=== PATIENT | female | born 1955 | race Caucasian/White ===

== ENCOUNTER 2020-02-22 16:49 | Outpatient (REF) | payer OTHER, SELFPAY | END 2020-02-22 16:50 | disposition home or self-care (01) | LOC: HO.LNP 16:49 | PROVIDERS: Visit Provider Nurse Practitioner Family | DX: N34.2 Other urethritis (principal) | CPT/HCPCS: 87086; 87088; 87186 ==

== ENCOUNTER 2020-03-23 12:20 | Outpatient (REF) | payer OTHER, SELFPAY ==
[2020-03-23 15:33] LABS: Free T4 (Free Thyroxine) 1.15 ng/dL (0.71-1.85); Thyroid Stimulating Hormone 1.02 uIU/mL (0.32-4.0)
== END 2020-03-23 12:21 | disposition home or self-care (01) ==
LOC: HO.10HDL 12:20
PROVIDERS: Visit Provider Internal Medicine
DX: E03.9 Hypothyroidism, unspecified (principal)
CPT/HCPCS: 84439; 84443; 87086

== ENCOUNTER 2020-03-27 12:54 | Outpatient (REF) | payer OTHER, SELFPAY ==
--- NOTE | 2020-03-27 13:15 | US_ITS ---
EXAMINATION: US RETROPERITONEAL LIMITED (RENAL ONLY) CLINICAL INFORMATION: Dysuria. COMPARISON: Ultrasound abdomen complete dated 06/29/2008. TECHNIQUE: Real-time imaging of the kidneys. Technically difficult study secondary to bowel gas. FINDINGS: RIGHT KIDNEY: 11.8 x 4.5 x 5.1 cm (SAG x AP x TRV). The kidney is normal in size, contour, and echogenicity. Renal cortical thickness is normal. No calculi or focal parenchymal lesions. No hydronephrosis. LEFT KIDNEY: 12.4 x 4.6 x 4.5 cm (SAG x AP x TRV). The kidney is normal in size, contour, and echogenicity. Renal cortical thickness is normal. No calculi or focal parenchymal lesions. No hydronephrosis. US/US renal BI IMPRESSION: Normal renal ultrasound..
== END 2020-03-27 12:55 | disposition home or self-care (01) ==
LOC: HO.HMGCX 12:54
PROVIDERS: PCP Internal Medicine; Visit Provider Internal Medicine
DX: R30.0 Dysuria (principal)
CPT/HCPCS: 76775

== ENCOUNTER 2020-04-30 13:10 | Outpatient (REF) | payer OTHER, SELFPAY ==
[2020-04-30 14:18] LABS: Glucose Urine UA NEG (NEG); Leukocyte Esterase Urine 1+ (NEG); Nitrite Urine POS (NEG); Specific Gravity - Urine 1.015 (1.005-1.025); Urine Blood TRACE (NEG); Urine Ketones NEG (NEG); Urine Protein NEG (NEG-TRACE)
[2020-04-30 14:24] LABS: Appearance Urine HAZY; Color Urine YELLOW
[2020-04-30 15:07] LABS: Bacteria Urine TRACE /LPF; RBC Urine 0-2 /HPF (0)
== END 2020-04-30 13:11 | disposition home or self-care (01) ==
LOC: HO.HMGCLDS 13:10
PROVIDERS: PCP Internal Medicine; Visit Provider Internal Medicine
DX: R32 Unspecified urinary incontinence (principal)
CPT/HCPCS: 81001; 87086; 87088; 87186

== ENCOUNTER → 2020-05-15 10:58 | Outpatient (BNVA) | payer OTHER, SELFPAY | PROVIDERS: PCP Internal Medicine; Visit Provider Internal Medicine Cardiovascular Disease | DX: I25.10 Atherosclerotic heart disease of native coronary artery without angina pectoris (principal); I10 Essential (primary) hypertension; I31.3 Pericardial effusion (noninflammatory); Z79.899 Other long term (current) drug therapy | CPT/HCPCS: 93005; 99212 ==

== ENCOUNTER 2020-06-04 12:58 | Outpatient (REF) | payer OTHER, SELFPAY ==
[2020-06-07 11:53] LABS: HPV mRNA E6/E7 rflx Not Detected (Not Detected)
== END 2020-06-04 12:59 | disposition home or self-care (01) ==
LOC: HO.LAB 12:58
PROVIDERS: Visit Provider Obstetrics & Gynecology
DX: R30.0 Dysuria (principal); F41.8 Other specified anxiety disorders; E78.00 Pure hypercholesterolemia, unspecified; I10 Essential (primary) hypertension; E03.9 Hypothyroidism, unspecified; E11.65 Type 2 diabetes mellitus with hyperglycemia; Z91.02 Food additives allergy status; Z91.040 Latex allergy status; Z91.018 Allergy to other foods; Z12.4 Encounter for screening for malignant neoplasm of cervix; Z12.31 Encounter for screening mammogram for malignant neoplasm of breast
CPT/HCPCS: 36415; 87086; 87088; 87186; 87624; 88141; 88142

== ENCOUNTER 2020-06-12 12:13 | Outpatient (REF) | payer OTHER, SELFPAY ==
[2020-06-12 14:41] LABS: Glucose Urine UA 100 MG/DL (NEG); Leukocyte Esterase Urine 1+ (NEG); Nitrite Urine NEG (NEG); Urine Blood 2+ (NEG); Urine Ketones NEG (NEG); Urine Protein NEG (NEG-TRACE)
[2020-06-12 14:43] LABS: Appearance Urine HAZY; Color Urine YELLOW
[2020-06-12 14:59] LABS: Mucus Urine 1+ /LPF; Renal Epithelial Cells Urine 1+ /LPF; Squamous Epithelial Cell Urine 1+ /LPF; WBC Urine 30-49 /HPF (0-4)
== END 2020-06-12 12:14 | disposition home or self-care (01) ==
LOC: HO.HMGCLDS 12:13
PROVIDERS: PCP Internal Medicine; Visit Provider Internal Medicine
DX: Z78.0 Asymptomatic menopausal state (principal); F17.210 Nicotine dependence, cigarettes, uncomplicated
CPT/HCPCS: 81001; Q3014

== ENCOUNTER 2020-06-14 13:49 | Outpatient (REF) | payer OTHER, SELFPAY ==
[2020-06-14 16:24] LABS: Glucose Urine UA NEG (NEG); Leukocyte Esterase Urine NEG (NEG); Nitrite Urine NEG (NEG); PH 5.5 (5.0-8.0); Urine Blood 1+ (NEG); Urine Ketones NEG (NEG); Urine Protein NEG (NEG-TRACE)
[2020-06-14 16:28] LABS: Appearance Urine HAZY; Color Urine YELLOW
[2020-06-14 16:37] LABS: RBC Urine 0 /HPF (0); Squamous Epithelial Cell Urine TRACE /LPF; WBC Urine 0-2 /HPF (0-4)
[2020-06-14 16:38] LABS: Mucus Urine TRACE /LPF
== END 2020-06-14 13:50 | disposition home or self-care (01) ==
LOC: HO.HMGCLDS 13:49
PROVIDERS: PCP Internal Medicine; Visit Provider Internal Medicine
DX: R32 Unspecified urinary incontinence (principal)
CPT/HCPCS: 81001; 87086

== ENCOUNTER 2020-06-21 14:30 | Outpatient (REF) | payer OTHER, SELFPAY ==
--- NOTE | ~2020-06-21 | US_ITS ---
EXAMINATION: ULTRASOUND PELVIS COMPLETE CLINICAL INFORMATION: Asymptomatic menopausal state. COMPARISON: Ultrasound pelvis 11/27/2005 TECHNIQUE: Transabdominal and transvaginal ultrasound the pelvis is performed. FINDINGS: The uterus is anteverted measuring 8.0 cm in length, 2.4 cm AP and 4.3 cm in transverse dimension. Endometrial thickness is 0.37 cm. The myometrium is mildly heterogenous in echotexture but no focal lesion seen. Right ovary measures 2.6 x 1.8 x 2.2 cm and volume 5.3 mL. It appears unremarkable. Left ovary measures 1.8 x 1.1 x 1.5 cm and volume 1.5 mL. It appears unremarkable. There are small calcifications in the lower uterine endometrial cavity US/US pelvic complete IMPRESSION: Slightly heterogenous myometrium with small calcifications along the lower uterine segment of the endometrium. No focal lesion seen. Unremarkable ovaries.
--- NOTE | ~2020-06-21 | US_ITS ---
EXAMINATION: ULTRASOUND PELVIS COMPLETE CLINICAL INFORMATION: Asymptomatic menopausal state. COMPARISON: Ultrasound pelvis 11/27/2005 TECHNIQUE: Transabdominal and transvaginal ultrasound the pelvis is performed. FINDINGS: The uterus is anteverted measuring 8.0 cm in length, 2.4 cm AP and 4.3 cm in transverse dimension. Endometrial thickness is 0.37 cm. The myometrium is mildly heterogenous in echotexture but no focal lesion seen. Right ovary measures 2.6 x 1.8 x 2.2 cm and volume 5.3 mL. It appears unremarkable. Left ovary measures 1.8 x 1.1 x 1.5 cm and volume 1.5 mL. It appears unremarkable. There are small calcifications in the lower uterine endometrial cavity US/US transvaginal IMPRESSION: Slightly heterogenous myometrium with small calcifications along the lower uterine segment of the endometrium. No focal lesion seen. Unremarkable ovaries.
== END 2020-06-21 14:31 | disposition home or self-care (01) ==
LOC: HO.HMGCX 14:30
PROVIDERS: PCP Internal Medicine; Visit Provider Obstetrics & Gynecology
DX: Z78.0 Asymptomatic menopausal state (principal)
CPT/HCPCS: 76830; 76856

== ENCOUNTER → 2020-06-22 15:11 | Outpatient (BNVA) | payer OTHER, SELFPAY | PROVIDERS: Visit Provider Obstetrics & Gynecology | DX: N95.0 Postmenopausal bleeding (principal) | CPT/HCPCS: Q3014 ==

== ENCOUNTER → 2020-07-12 13:45 | Outpatient (BNVA) | payer OTHER, SELFPAY | PROVIDERS: PCP Internal Medicine; Visit Provider Internal Medicine | DX: J43.9 Emphysema, unspecified (principal); F17.200 Nicotine dependence, unspecified, uncomplicated | CPT/HCPCS: 99212 ==

== ENCOUNTER → 2020-09-18 13:35 | Outpatient (BNVA) | payer OTHER, SELFPAY | PROVIDERS: PCP Internal Medicine; Visit Provider Urology | DX: R39.15 Urgency of urination (principal) | CPT/HCPCS: 51798; 81002; 99202 ==

== ENCOUNTER 2020-10-23 12:49 | Outpatient (REF) | payer OTHER, SELFPAY ==
--- NOTE | ~2020-10-23 | MM_ITS ---
EXAMINATION: MM SCREENING DIGITAL BREAST TOMOSYNTHESIS, BILATERAL CLINICAL INFORMATION: Screening. Asymptomatic. The lifetime risk of breast cancer based on the Tyrer-Cuzick Model is 11%. COMPARISON: Mammography: 04/07/2019, 03/23/2018, 02/19/2017 TECHNIQUE: Digital breast tomosynthesis is performed in both the craniocaudal and mediolateral oblique views along with computer-aided detection (CAD). Synthesized 2D images are generated from the tomosynthesis. FINDINGS: There are scattered areas of fibroglandular density (ACR BI-RADS breast composition Category b). There are no significant masses, abnormal calcifications, or other abnormalities. Parenchymal pattern is similar to prior exams. No developing density. The axilla and skin contours are unremarkable. MM/MM tomosynthesis screening BI IMPRESSION: No mammographic evidence of malignancy. ASSESSMENT: BI-RADS 1: Negative RECOMMENDATION: Routine annual mammography screening. This patient's information was entered into a reminder system with a target due date for their next mammogram.
== END 2020-10-23 12:50 | disposition home or self-care (01) ==
LOC: HO.MAMMO 12:49
PROVIDERS: Visit Provider Obstetrics & Gynecology
DX: Z12.31 Encounter for screening mammogram for malignant neoplasm of breast (principal)
CPT/HCPCS: 77063; 77067

== ENCOUNTER 2020-11-02 15:54 | Outpatient (REF) | payer OTHER, SELFPAY ==
[2020-11-02 17:01] LABS: MANUAL DIFF FLAG NO
[2020-11-02 17:07] LABS: Basophils Absolute Auto 0.1 X10*3/uL (0.0-0.2); Basophils Percent Auto 0.8 % (0-2); Eosinophils Absolute Auto 0.3 X10*3/uL (0.0-0.4); Eosinophils Percent Auto 3.4 % (0-4); Hematocrit 42.4 % (37-47); Hemoglobin 14.1 g/dl (12.0-16.0); Imm Gran Abs Auto 0.08 X10*3/uL (0.00-0.03); Imm Gran Pct Auto 0.9 % (0.0-0.4); Lymphocytes Absolute Auto 2.3 X10*3/uL (1.2-4.9); Lymphocytes Percent Auto 26.4 % (20-40); Mean Corpuscular HGB Conc 33.3 g/dl (31.0-35.0); Mean Corpuscular Hemoglobin 32.7 pg (27.0-33.0); Mean Corpuscular Volume 98.4 fL (80-98); Mean Platelet Volume 9.6 fL (9.4-12.3); Monocytes Absolute Auto 0.8 X10*3/uL (0.1-1.2); Monocytes Percent Auto 8.8 % (2-11); Neutrophils Absolute Auto 5.1 X10*3/uL (2.0-8.3); Neutrophils Percent Auto 59.7 % (45-73); Platelet Count 169 X10*3/uL (160-400); Red Blood Count 4.31 X10*6/uL (4.20-5.50); Red Cell Distribution Width 13.1 % (11.0-16.0); White Blood Count 8.6 X10*3/uL (4.8-10.8)
[2020-11-02 17:35] LABS: Anion Gap 16 (12-20); Blood Urea Nitrogen 16 mg/dL (9-16); Calcium 10.2 mg/dL (8.4-10.2); Carbon Dioxide 25 mmol/L (22-29); Chloride 105 mmol/L (96-108); Estimated Glomerular Filt Rate > 60; Glucose Random 116 mg/dL (60-115); Potassium 4.2 mmol/L (3.3-5.1); Sodium 142 mmol/L (135-145)
[2020-11-02 17:59] LABS: Free T4 (Free Thyroxine) 0.99 ng/dL (0.71-1.85); Thyroid Stimulating Hormone 1.36 uIU/mL (0.32-4.0)
== END 2020-11-02 15:55 | disposition home or self-care (01) ==
LOC: HO.LAB 15:54
PROVIDERS: PCP Internal Medicine; Visit Provider Nurse Practitioner Family
DX: E03.9 Hypothyroidism, unspecified (principal)
CPT/HCPCS: 36415; 80048; 84439; 84443; 85025

== ENCOUNTER 2020-11-13 15:14 | Outpatient (REF) | payer OTHER, SELFPAY ==
--- NOTE | ~2020-11-13 | US_ITS ---
EXAMINATION: US THYROID CLINICAL INFORMATION: Nontoxic goiter, unspecified COMPARISON: None TECHNIQUE: Linear transducer grayscale and color Doppler examination with attention to the region of the thyroid. FINDINGS: SIZE: Measurements of the thyroid lobes and nodules are given in sagittal, anteroposterior and transverse dimensions respectively. The left lobe and isthmus are slightly enlarged. Right Thyroid Lobe: 4.60 x 1.92 x 1.59 cm, volume 7.39 mL. Parenchyma: The gland echotexture is homogeneous. Thyroid vascularity is increased. Left Thyroid Lobe: 4.94 x 2.14 x 1.82 cm, volume 10.1 mL. Parenchyma: The gland echotexture is homogeneous. Thyroid vascularity is increased. Isthmus: 0.70 cm in maximum AP dimension. Estimated total number of nodules greater than or equal to 1 cm: 0. Shuttlecock Assembler nodules are described as follows: NODES: No lymphadenopathy is seen in the tissue surrounding the thyroid gland. US/US thyroid IMPRESSION: Slightly hypervascular enlarged thyroid gland. No nodule seen.
== END 2020-11-13 15:15 | disposition home or self-care (01) ==
LOC: HO.HMGCX 15:14
PROVIDERS: PCP Internal Medicine; Visit Provider Nurse Practitioner Family
DX: E04.9 Nontoxic goiter, unspecified (principal)
CPT/HCPCS: 76536

== ENCOUNTER 2020-11-21 09:37 | Outpatient (REF) | payer OTHER, SELFPAY ==
[2020-11-21 11:25] LABS: MANUAL DIFF FLAG NO
[2020-11-21 11:31] LABS: Glucose Urine UA NEG (NEG); Leukocyte Esterase Urine 2+ (NEG); Nitrite Urine NEG (NEG); UACC Culture Trigger YES; Urine Blood 1+ (NEG); Urine Ketones NEG (NEG); Urine Protein NEG (NEG-TRACE)
[2020-11-21 11:34] LABS: Appearance Urine CLOUDY; Color Urine YELLOW
[2020-11-21 11:58] LABS: Creatinine Urine 104.46 mg/dL; Microalbum/Creatinine Ratio Ur 50.7 ug/mg cr
[2020-11-21 12:01] LABS: Bacteria Urine 1+ /LPF; Basophils Absolute Auto 0.1 X10*3/uL (0.0-0.2); Basophils Percent Auto 0.7 % (0-2); Eosinophils Absolute Auto 0.2 X10*3/uL (0.0-0.4); Eosinophils Percent Auto 3.1 % (0-4); Hematocrit 40.5 % (37-47); Hemoglobin 13.3 g/dl (12.0-16.0); Imm Gran Abs Auto 0.05 X10*3/uL (0.00-0.03); Imm Gran Pct Auto 0.7 % (0.0-0.4); Lymphocytes Absolute Auto 1.5 X10*3/uL (1.2-4.9); Lymphocytes Percent Auto 20.1 % (20-40); Mean Corpuscular HGB Conc 32.8 g/dl (31.0-35.0); Mean Corpuscular Hemoglobin 32.7 pg (27.0-33.0); Mean Corpuscular Volume 99.5 fL (80-98); Monocytes Absolute Auto 0.7 X10*3/uL (0.1-1.2); Monocytes Percent Auto 8.6 % (2-11); Neutrophils Percent Auto 66.8 % (45-73); Platelet Count 151 X10*3/uL (160-400); Red Blood Count 4.07 X10*6/uL (4.20-5.50); Red Cell Distribution Width 13.4 % (11.0-16.0); Squamous Epithelial Cell Urine 1+ /LPF; WBC Urine TNTC /HPF (0-4); White Blood Count 7.5 X10*3/uL (4.8-10.8)
[2020-11-21 12:32] LABS: Alanine Aminotransferase 24 U/L (0-31); Albumin Level 4.1 g/dL (3.5-5.0); Alkaline Phosphatase 90 U/L (39-117); Anion Gap 15 (12-20); Aspartate Amino Transferase 19 U/L (5-31); Bilirubin Total 0.8 mg/dL (0.0-1.0); Blood Urea Nitrogen 11 mg/dL (9-16); Calcium 10.2 mg/dL (8.4-10.2); Carbon Dioxide 27 mmol/L (22-29); Chloride 106 mmol/L (96-108); Cholesterol 99 mg/dL; Estimated Glomerular Filt Rate > 60; Glucose Random 161 mg/dL (60-115); HDL Cholesterol 27 mg/dL; LDL Cholesterol Calculated 51 mg/dl; Potassium 4.5 mmol/L (3.3-5.1); Sodium 143 mmol/L (135-145); Total Protein 6.9 g/dL (6.5-8.0); Triglycerides 109 mg/dL
[2020-11-21 12:43] LABS: Free T4 (Free Thyroxine) 1.16 ng/dL (0.71-1.85); Thyroid Stimulating Hormone 1.33 uIU/mL (0.32-4.0); Vitamin D 25-OH Total 42.5 ng/mL (>30)
[2020-11-21 12:53] LABS: Folate 10.1 ng/mL (> or = 4.0); Vitamin B12 277 pg/mL (200-900)
== END 2020-11-21 09:38 | disposition home or self-care (01) ==
LOC: HO.HMGCLDS 09:37
PROVIDERS: PCP Internal Medicine; Visit Provider Internal Medicine
DX: R30.0 Dysuria (principal); E11.65 Type 2 diabetes mellitus with hyperglycemia; E78.00 Pure hypercholesterolemia, unspecified
CPT/HCPCS: 36415; 80053; 80061; 81001; 81003; 82043; 82306; 82607; 82746; 84439; 84443; 85025; 87086; 87088; 87186

== ENCOUNTER 2020-12-13 08:17 | Outpatient (REF) | payer OTHER, SELFPAY ==
--- NOTE | ~2020-12-13 | XR_ITS ---
EXAMINATION: XR KNEES, STANDING AP XR KNEE, RIGHT CLINICAL INFORMATION: Knee pain COMPARISON: Radiographs right knee 09/01/2017 TECHNIQUE: Standing AP view of both knees is performed along with lateral and axial patella views of the right knee. FINDINGS: Right: There is moderate narrowing medial knee joint compartment with mild secondary genu various. No erosive change. There may be some trace chondrocalcinosis medial meniscus. Lateral view shows no suprapatellar effusion. Hoffa's fat pad appears normal. There is no destructive process. Spurring at the quadriceps insertion patella is seen. The deep infrapatellar recess is preserved. No lateralization patella. Left: There is mild narrowing medial knee joint compartment with mild secondary genu varus. No erosive change or definite chondrocalcinosis. No bony destructive process. XR/XR knee standing BI IMPRESSION: 1. Narrowing medial knee joint compartment with mild secondary genu varus, greater on right. 2. Spurring at quadriceps insertion right patella.
--- NOTE | ~2020-12-13 | XR_ITS ---
EXAMINATION: XR KNEES, STANDING AP XR KNEE, RIGHT CLINICAL INFORMATION: Knee pain COMPARISON: Radiographs right knee 09/01/2017 TECHNIQUE: Standing AP view of both knees is performed along with lateral and axial patella views of the right knee. FINDINGS: Right: There is moderate narrowing medial knee joint compartment with mild secondary genu various. No erosive change. There may be some trace chondrocalcinosis medial meniscus. Lateral view shows no suprapatellar effusion. Hoffa's fat pad appears normal. There is no destructive process. Spurring at the quadriceps insertion patella is seen. The deep infrapatellar recess is preserved. No lateralization patella. Left: There is mild narrowing medial knee joint compartment with mild secondary genu varus. No erosive change or definite chondrocalcinosis. No bony destructive process. XR/XR knee RT 2V IMPRESSION: 1. Narrowing medial knee joint compartment with mild secondary genu varus, greater on right. 2. Spurring at quadriceps insertion right patella.
--- NOTE | ~2020-12-13 | XR_ITS ---
EXAMINATION: XR PELVIS CLINICAL INFORMATION: M25.559 - Pain in unspecified hip COMPARISON: Radiographs pelvis and left. 08/16/2018. TECHNIQUE: AP view of the pelvis. FINDINGS: There are prominent osteoarthritic changes again noted bilateral hips with joint narrowing, subchondral sclerosis, spurring bilateral acetabula and femoral heads, and mild buttressing along the lateral femoral necks. There is no fracture or dislocation or destructive process. Soft tissue planes appear symmetric. There are mild degenerative changes SI joints. The pubis is unremarkable. XR/XR pelvis 1-2V IMPRESSION: Prominent osteoarthritis bilateral hips.
[2020-12-13 11:09] LABS: Free T4 (Free Thyroxine) 1.25 ng/dL (0.71-1.85); Thyroid Stimulating Hormone 1.31 uIU/mL (0.32-4.0)
[2020-12-15 04:17] LABS: Triiodothyronine T3 Total 90 ng/dL (76-181)
[2020-12-17 17:27] LABS: Thyroglobulin Antibodies <1 IU/mL (< or = 1); Thyroid Peroxidase Antibodies 1 IU/mL (<9)
== END 2020-12-13 08:18 | disposition home or self-care (01) ==
LOC: HO.HOSX 08:17
PROVIDERS: PCP Internal Medicine; Visit Provider Internal Medicine
DX: M16.0 Bilateral primary osteoarthritis of hip (principal); M17.11 Unilateral primary osteoarthritis, right knee; E11.65 Type 2 diabetes mellitus with hyperglycemia; E06.3 Autoimmune thyroiditis
CPT/HCPCS: 20610; 36415; 72170; 73560; 73565; 84439; 84443; 84480; 86376; 86800; 99202; 99212; J1100

== ENCOUNTER → 2020-12-31 13:24 | Outpatient (BNVA) | payer OTHER, SELFPAY | PROVIDERS: PCP Internal Medicine; Visit Provider Internal Medicine | DX: J43.9 Emphysema, unspecified (principal); F17.200 Nicotine dependence, unspecified, uncomplicated | CPT/HCPCS: 99212 ==

== ENCOUNTER → 2021-01-24 09:03 | Outpatient (BNVA) | payer OTHER, SELFPAY | PROVIDERS: PCP Internal Medicine; Visit Provider Orthopaedic Surgery | DX: M17.11 Unilateral primary osteoarthritis, right knee (principal) | CPT/HCPCS: 20610; 99212; J7318 ==

== ENCOUNTER → 2021-01-30 12:24 | Outpatient (BNVA) | payer OTHER, SELFPAY | PROVIDERS: PCP Internal Medicine; Visit Provider Dietitian, Registered | DX: E11.65 Type 2 diabetes mellitus with hyperglycemia (principal); Z71.3 Dietary counseling and surveillance | CPT/HCPCS: 97802 ==

== ENCOUNTER → 2021-04-25 12:40 | Outpatient (BNVA) | payer OTHER, SELFPAY | PROVIDERS: PCP Internal Medicine; Visit Provider Orthopaedic Surgery | DX: M17.11 Unilateral primary osteoarthritis, right knee (principal); M16.0 Bilateral primary osteoarthritis of hip; E11.65 Type 2 diabetes mellitus with hyperglycemia | CPT/HCPCS: 20610; 99212; J1100 ==

== ENCOUNTER → 2021-04-29 13:04 | Outpatient (REF) | payer OTHER, SELFPAY ==
--- NOTE | 2021-04-29 13:10 | CA_ITS ---
Transthoracic Echocardiogram Patient (Last, First, Middle): Pina Olmstead A Gender: Female Date of : 1955 Age: 66 Procedure Date: 04/29/2021 Procedure Type: Transthoracic Echocardiogram Location: OP Height: 154.94 cm Weight: 73.48 kg BSA: 1.73 m2 Heart Rate: bpm BP: 160 / 70 mmHg Currency Exchange Specialist: KACY Awan MD: Alli Hayes MD Melt Supervisor: Alli Hayes MD Symptoms: I31.3 - Pericardial effusion (noninflammatory) Study Quality: Fair ECG Rhythm: Sinus Conclusions: - 1. Normal LV systolic function with LVEF of 60 65% with impaired relaxation filling pattern 2. Normal cardiac valvular Doppler 3. Normal RV systolic pressure 4. Small to moderate pericardial effusion, more prominent closer to LV without tamponade physiology Findings Left Ventricle Normal left ventricular size, thickness, and systolic function. The visually estimated ejection fraction is between 60-65%. Spectral Doppler is indicative of an impaired relaxation filling pattern. E/E prime ratio is between 8 and 15 consistent with indeterminate filling pressures. Right Ventricle Normal right ventricular cavity size and systolic function. Atria The left atrium is likely dilated. Interatrial shunt cannot be excluded. The right atrium is normal in size. Aortic Valve The aortic valve was not well visualized. There is no aortic valve stenosis. There is no aortic valve regurgitation. Mitral Valve There is mild anterior mitral leaflet thickening. There is mild mitral annular calcification. There is trace mitral valve regurgitation. There is no mitral valve stenosis. Pulmonic Valve The pulmonic valve was not well visualized. Tricuspid Valve Likely normal tricuspid valve structure and function. There is trace tricuspid valve regurgitation. The right ventricular systolic pressure is normal. The right ventricular systolic pressure is 22 mmHg. Normal right atrial pressure. There is no evidence of pulmonary hypertension. Great Vessels All visible segments of the aorta are normal in size. The pulmonary artery was not well visualized. Venous The inferior vena cava is normal in size and collapses greater than 50% with inspiration. Pericardium/Pleural There is a small circumferential pericardial effusion. Measurements 2D Linear Measurements IVSd: 0.94 0.6-0.9/0.6-1.0 cm LVIDd: 4.15 3.9-5.3/4.2-5.9 cm LVIDd Index: 2.40 2.4-3.2/2.2-3.1 cm/m2 LVIDs: 3.09 2.0-3.6 cm LVPWd: 0.99 0.7-1.1 cm Ao Root: 3.00 2.1-3.5 cm LA Diam: 3.40 2.7-3.8/3.0-4.0 cm LAIDs Index: 1.97 1.5-2.3 cm/m2 LV Mass: 159.18 67-162/88-224 g LV Mass Index: 92.01 43-95/49-115 g/m2 LVOT Diam: 2.00 3.0+(-)1.3 cm 2D Systolic Function EF 4C: 59.90 >55% EF 2C: 65.80 >55% EF BiP: 64.00 >55% Mitral Valve MV Pk E: 0.82 MV PK A: 1.04 MV Decel Time: 237.00 E/A: 0.80 E'Lateral: 6.09 E'Medial: 5.87 E/E' Med: 13.90 E/E' Lat: 13.40 PHT: 69.00 MVA PHT: 3.19 Decel [place]: 3.45 Aortic Valve AoV Pk Denis: 1.43 AoV Mn Denis: 1.04 AoV VTI: 0.35 AoV Pk Grad: 8.00 Aov Mn Grad: 5.00 MALIK Cont.VTI: 2.33 LVOT LVOT Pk Denis: 1.02 LVOT Mn Denis: 0.73 LVOT VTI: 0.26 LVOT Pk Grad: 4.00 LVOT Mn Grad: 2.00 LVOT Diam: 2.00 LVOT Area: 3.14 Diastolic Function MV Pk E: 0.82 MV Pk A: 1.04 E/A: 0.80 E'Medial: 5.87 E/E' Med: 13.90 E' Laterial: 6.09 E/E' Lat: 13.40 Right Ventricle TAPSE (mm): 2.44 TVS' Denis: 10.40 Tricuspid Valve TR Pk Denis: 1.85 TR Pk Grad: 14.00 RA Press: 8.00 RVSP: 22.00 Great Vessels Aorta Ao Root-2D: 3.00 2.0-3.7 cm Ao Asc: 3.00 2.1-3.4 cm Ao Arch: 2.10 Updated in Other Vendor System with Status of Final Alli Hayes MD electronically signed on 04/29/2021 7:03:08 PM with status of Final
== END ==
LOC: HO.CARD 13:04
PROVIDERS: PCP Internal Medicine; Visit Provider Internal Medicine Cardiovascular Disease
DX: I10 Essential (primary) hypertension (principal); I25.10 Atherosclerotic heart disease of native coronary artery without angina pectoris; I31.3 Pericardial effusion (noninflammatory)
CPT/HCPCS: 93306

== ENCOUNTER → 2021-06-07 12:49 | Outpatient (BNVA) | payer OTHER, SELFPAY | PROVIDERS: Visit Provider Advanced Practice Midwife ==

== ENCOUNTER → 2021-06-28 10:11 | Outpatient (BNVA) | payer OTHER, SELFPAY | PROVIDERS: PCP Internal Medicine; Referring Provider Internal Medicine; Visit Provider Internal Medicine Cardiovascular Disease | DX: I25.10 Atherosclerotic heart disease of native coronary artery without angina pectoris (principal); I10 Essential (primary) hypertension | CPT/HCPCS: 93005; 99212 ==

== ENCOUNTER → 2021-07-04 13:22 | Outpatient (BNVA) | payer OTHER, SELFPAY | PROVIDERS: PCP Internal Medicine; Visit Provider Internal Medicine | DX: J43.9 Emphysema, unspecified (principal); J30.9 Allergic rhinitis, unspecified; F41.9 Anxiety disorder, unspecified; F32.9 Major depressive disorder, single episode, unspecified; Z72.0 Tobacco use; Z79.899 Other long term (current) drug therapy | CPT/HCPCS: 99212 ==

== ENCOUNTER → 2021-07-15 13:31 | Outpatient (BNVA) | payer OTHER, SELFPAY | PROVIDERS: PCP Internal Medicine; Visit Provider Orthopaedic Surgery | DX: M17.11 Unilateral primary osteoarthritis, right knee (principal); M16.0 Bilateral primary osteoarthritis of hip; E11.65 Type 2 diabetes mellitus with hyperglycemia; I25.10 Atherosclerotic heart disease of native coronary artery without angina pectoris | CPT/HCPCS: 20610; 99212; J1100 ==

== ENCOUNTER 2021-09-18 06:03 | Day surgery (SDC) | payer OTHER, SELFPAY ==
[2021-09-13 10:25] VITALS: BMI 30.9
--- NOTE | 2021-09-17 10:12 | P.CONAN_ITS ---
Documented by User: Flor Bains NP 09/17/21 10:15 HPI - Anesthesia Eval Consult details Narrative: 66yo F for Colonoscopy Stable at routine yearly cardiac visit 06/2021 [facility] Active Problems Active Problems: All Active Problems (Updated 07/23/21 @ 15:03 by Vicky Whitman MD) Diabetic neuropathy (Acute) Axillary abscess (Acute) Allergic rhinitis (Acute) Bruise (Acute) Primary localized osteoarthritis of right knee (Acute) Bilateral hip joint arthritis (Acute) Franky's disease (Acute) Goiter diffuse (Acute) Urinary urgency (Acute) Hemorrhoid (Acute) Preop exam for internal medicine (Acute) Pericardial effusion (Acute) Urinary incontinence (Acute) Tobacco abuse (Acute) Type 2 diabetes mellitus with hyperglycemia (Acute) Anxiety and depression (Acute) GERD (gastroesophageal reflux disease) (Acute) Obesity (BMI 30-39.9) (Acute) COPD (chronic obstructive pulmonary disease) (Acute) Coronary artery disease (Acute) Hypercholesterolemia (Acute) Hypothyroid (Acute) UTI (urinary tract infection) (Acute) Hypertension (Acute) Past Medical History Medical History Allergic rhinitis Anxiety and depression Carpal tunnel syndrome Cataract COPD (chronic obstructive pulmonary disease) Coronary artery disease GERD (gastroesophageal reflux disease) Glaucoma Goiter diffuse Franky's disease Hypercholesterolemia Hypertension Hypothyroid Obesity (BMI 30-39.9) Tobacco abuse Type 2 diabetes mellitus with hyperglycemia Family History Family History Father Myocardial infarct Maternal Grandmother Breast cancer Mother Pancreatic cancer Sister Bipolar 1 disorder Other Mental problem Surgical History Surgical History History of tubal ligation Hx of section Social History Social History Housing: House Alcohol intake: current Alcohol intake frequency: holidays/special occasions only Patient Tobacco Use Status: Current everyday Tobacco user Tobacco use type: Cigarette Cigarettes Per Day: 4 Years Smoked: 4 cigarettes a day e-Cigarette/Vaping Use: Never Used Advance Directives: No Advance Directives Information Provided: Yes service: No Current occupational status: disabled Meds Allergies Allergy/AdvReac Type Severity Reaction Status Date / Time LATEX Allergy Intermediate rash Verified 09/12/21 15:33 MOLD Allergy Intermediate rash Verified 09/12/21 15:33 NONORGANIC FOOD Allergy Intermediate diarrhea Verified 09/12/21 15:33 YEAST Allergy Intermediate diarrhea Verified 09/12/21 15:33 Home Medications Medication Instructions Recorded Confirmed Last Taken Type blood sugar diagnostic #10 ea 02/22/20 06/28/21 Unknown History blood-glucose meter #1 ea 02/22/20 06/28/21 Unknown History clonazepam 1 mg tablet 1 mg PO TID PRN 02/22/20 09/13/21 Unknown History nystatin 100,000 unit/gram topical TOPICAL 02/22/20 06/28/21 Unknown History powder timolol maleate 0.5 % eye drops 1 drp OPHTHALMIC (EYE) BID 02/22/20 09/13/21 Unknown History venlafaxine 75 mg capsule,extended 75 mg PO DAILY 02/22/20 09/13/21 Unknown History release 24 hr fluocinolone 0.01 % topical 1 applic TOPICAL BID 03/23/20 06/28/21 Unknown History solution aspirin 81 mg tablet,delayed 81 mg PO DAILY 05/15/20 09/18/21 09/17/21 History release (Adult Low Dose Aspirin) betamethasone dipropionate 0.05 % TOPICAL 05/15/20 06/28/21 Unknown History topical ointment albuterol sulfate 90 mcg/actuation 2 puff INHALATION Q6H PRN 06/29/20 09/13/21 Unknown History aerosol inhaler (Proventil HFA) lactulose 10 gram/15 mL oral 15 ml PO DAILY PRN 07/12/20 09/13/21 Unknown History solution tafluprost (PF) 0.0015 % eye drops 1 drp OPHTHALMIC (EYE) BEDTIME 09/18/20 09/13/21 Unknown History in a dropperette Exam Exam Date and Time: September 17, 2021 1012 Height,Weight and Vital Signs: Height 5 ft 1 in Weight 74.389 kg Narrative Narrative: EKG 06/2021 normal sinus rhythm with low-voltage QRS with nonspecific T-wave changes ECHO 04/2021 Conclusions: -? 1. Normal LV systolic function with LVEF of 60 65% with ? ? ? impaired relaxation filling pattern? 2. Normal cardiac valvular Doppler ? 3. Normal RV systolic pressure ? 4. Small to moderate pericardial effusion, more prominent closer to LV without tamponade physiology ? Assessment and Plan Assessment Anesthesia Assessment: Chart Reviewed Documented by User: Jamari Garcia MD 09/18/21 14:42 HPI - Anesthesia Eval Consult details Narrative: 66yo F for Colonoscopy Stable at routine yearly cardiac visit 06/2021 CAD s/p Stent recent fall , denies LOC , says has a bump in the back of the head and bruising left side of the shoulder and neck . Patient was advised by the PCP's office to go to the ED but patient declined . We also counselled the patient to get evaluated in the ED . Patient declined and says she feels fine . She understands the risks and would like to proceed. [facility] Past Medical History Medical History Allergic rhinitis Anxiety and depression Carpal tunnel syndrome Cataract COPD (chronic obstructive pulmonary disease) Coronary artery disease GERD (gastroesophageal reflux disease) Glaucoma Goiter diffuse Rfanky's disease Hypercholesterolemia Hypertension Hypothyroid Obesity (BMI 30-39.9) Tobacco abuse Type 2 diabetes mellitus with hyperglycemia Family History Family History Father Myocardial infarct Maternal Grandmother Breast cancer Mother Pancreatic cancer Sister Bipolar 1 disorder Other Mental problem Family history of problems with anesthesia: No Surgical History Surgical History History of tubal ligation Hx of section History of Problems with Anesthesia: No Social History Social History Housing: House Alcohol intake: current Alcohol intake frequency: holidays/special occasions only Patient Tobacco Use Status: Current everyday Tobacco user Tobacco use type: Cigarette Cigarettes Per Day: 4 Years Smoked: 4 cigarettes a day e-Cigarette/Vaping Use: Never Used Advance Directives: No Advance Directives Information Provided: Yes service: No Current occupational status: disabled Meds Allergies Allergy/AdvReac Type Severity Reaction Status Date / Time LATEX Allergy Intermediate rash Verified 09/12/21 15:33 MOLD Allergy Intermediate rash Verified 09/12/21 15:33 NONORGANIC FOOD Allergy Intermediate diarrhea Verified 09/12/21 15:33 YEAST Allergy Intermediate diarrhea Verified 09/12/21 15:33 Home Medications Medication Instructions Recorded Confirmed Last Taken Type blood sugar diagnostic #10 ea 02/22/20 06/28/21 Unknown History blood-glucose meter #1 ea 02/22/20 06/28/21 Unknown History clonazepam 1 mg tablet 1 mg PO TID PRN 02/22/20 09/13/21 Unknown History nystatin 100,000 unit/gram topical TOPICAL 02/22/20 06/28/21 Unknown History powder timolol maleate 0.5 % eye drops 1 drp OPHTHALMIC (EYE) BID 02/22/20 09/13/21 Unknown History venlafaxine 75 mg capsule,extended 75 mg PO DAILY 02/22/20 09/13/21 Unknown History release 24 hr fluocinolone 0.01 % topical 1 applic TOPICAL BID 03/23/20 06/28/21 Unknown History solution aspirin 81 mg tablet,delayed 81 mg PO DAILY 05/15/20 09/18/21 09/17/21 History release (Adult Low Dose Aspirin) betamethasone dipropionate 0.05 % TOPICAL 05/15/20 06/28/21 Unknown History topical ointment albuterol sulfate 90 mcg/actuation 2 puff INHALATION Q6H PRN 06/29/20 09/13/21 Unknown History aerosol inhaler (Proventil HFA) lactulose 10 gram/15 mL oral 15 ml PO DAILY PRN 07/12/20 09/13/21 Unknown History solution tafluprost (PF) 0.0015 % eye drops 1 drp OPHTHALMIC (EYE) BEDTIME 09/18/20 09/13/21 Unknown History in a dropperette Exam Airway Mallampati Class: III TM Dist: >3cm Neck ROM: Full Loose/Missing/Broken Teeth: Yes Heart: S1, S2 Lungs: b/l breath sounds Assessment and Plan Assessment Anesthesia Assessment: Anesthesia Plan Discussed Final Anesthetic Review Family History of Problems with Anesthesia: No History of Problems with Anesthesia: No NPO: Yes ASA Class: III Final Preanesthetic Review: Meds/Allgs Chart Reviewed, Consent Obtained/Reviewed and Anes Risks/Benef Reviewed Patient Risk: High Procedure Risk: Intermediate Anesthetic Plan Anesthetic Plan: MAC: Disposition: Standard PACU
[2021-09-18 06:36] VITALS: BP 143/63; PULSE 78; RESP 16; TEMP 36.5; O2SAT 97
[2021-09-18 06:39] LABS: Glucose, Whole Blood 140 mg/dL (60-115)
[2021-09-18] MEDS: Lactated Ringers 1,000 ML 50 ML IVCONT (06:48)
--- NOTE | 2021-09-18 06:53 | PC.NURSE ---
Fell in kitchen 10 days ago, ? lost balance, uses walker at home. Now has ecchymosis left side of neck and small area of swelling occipital area. Denies LOC at time of injury.
[2021-09-18 07:38] VITALS: PULSE 65; RESP 18; O2SAT 97
[2021-09-18] MEDS: Albuterol Sulfate (0.083%) 2.5 MG/3 ML VIAL.NEB INHALE (07:38)
[2021-09-18 08:35] VITALS: BP 120/56; PULSE 71; RESP 16; TEMP 36.3; O2SAT 97
--- NOTE | 2021-09-18 08:39 | P.BOP_ITS ---
Brief Operative Note Date of Service: 09/18/21 Pre-op diagnosis: Screening Post-op diagnosis: other (Colon polyps) Procedure: Colonoscopy to the cecum with hot snare polypectomy x 2 with placement of Resolution clip x 2 Surgeon: Ras Mccarty Anesthesia: MAC Was an Manual Training Teacher used for this Procedure?: No Estimated blood loss (mL): 0 Pathology: other (A. Transverse colon polyp B. Polyp at 60cm) Condition: stable Disposition: PACU
--- NOTE | 2021-09-18 08:45 | PC.NURSE ---
md diamond by bedside eval patient. alert and awake po challenge
[2021-09-18 08:50] VITALS: BP 120/56; PULSE 75; RESP 16; O2SAT 97
[2021-09-18 08:51] VITALS: BP 149/73
--- NOTE | 2021-09-18 20:16 | OP_ITS ---
SURGEON: Ras Mccarty MD INDICATIONS: The patient presents for evaluation of colorectal cancer screening. Full consent has been obtained from her for this, including risks of bleeding and perforation. PREOPERATIVE DIAGNOSIS: Colorectal cancer screening. POSTOPERATIVE DIAGNOSIS: Colorectal cancer screening, colon polyps, diverticulosis, and internal hemorrhoids. PROCEDURE PERFORMED: Colonoscopy to the cecum with hot snare polypectomy and placement of resolution clips. ESTIMATED BLOOD LOSS: COMPLICATIONS: ANESTHESIA: Medication used, monitored anesthesia care. ASSISTANTS: SPECIMENS: DESCRIPTION OF PROCEDURE: The patient was placed in the left lateral decubitus position. The digital rectal exam revealed external hemorrhoids. The Olympus video pediatric colonoscope was entered into the rectum and advanced easily to the cecum. Once in the cecum, I did identify normal-appearing cecal pouch with appendiceal orifice and a normal-appearing ileocecal valve. The entire cecum and ileocecal valve appeared normal. There was transillumination of light deep in the right lower quadrant. The scope was slowly withdrawn assessing all mucosal surfaces carefully. Preparation was excellent. In the transverse colon and at 60 cm were approximately 8 mm grossly adenomatous polyps, which were each removed with a hot snare polypectomy and recovered by suction. Both polypectomy sites appeared clean, without any sign of residual polyp nor bleeding. A single resolution clip was placed on each polypectomy site with good deployment and good hemostasis. I do not visualize any other polyps, colitis, nor angiodysplasia. There was a mild amount of sigmoid diverticulosis. In the rectum, the scope was retroflexed visualizing internal hemorrhoids, but no other pathology. The rectal mucosa appeared normal. The scope was straightened and withdrawn from the patient. She tolerated the procedure well and was returned to the recovery area in stable condition. IMPRESSION: 1. Colon polyps. 2. Diverticulosis. 3. Internal hemorrhoids. 4. External hemorrhoids. PLAN: The results of the pathology will be checked if these are tubular adenoma, I would recommend a followup coloscopy in 5 years. If they are only hyperplastic, I would recommend a followup colonoscopy in 10 years. She was advised to resume her aspirin tomorrow. She was advised not to use any NSAIDs for least 1 week. MD NADIYA Thakkar/TORYL / [id number]
== END 2021-09-18 09:38 | disposition home or self-care (01) ==
PROVIDERS: PCP Internal Medicine; Visit Provider Internal Medicine
PROC: 0DJD8ZZ Inspection of Lower Intestinal Tract, Via Natural or Artificial Opening Endoscopic (ICD-10-PCS; CPT 45378; principal; 2021-09-18 07:30)
DX: Z12.11 Encounter for screening for malignant neoplasm of colon (principal); R19.8 Other specified symptoms and signs involving the digestive system and abdomen; D12.4 Benign neoplasm of descending colon; K63.5 Polyp of colon; K57.30 Diverticulosis of large intestine without perforation or abscess without bleeding; K64.8 Other hemorrhoids; J44.9 Chronic obstructive pulmonary disease, unspecified; G47.33 Obstructive sleep apnea (adult) (pediatric); I10 Essential (primary) hypertension; E11.9 Type 2 diabetes mellitus without complications; Z79.84 Long term (current) use of oral hypoglycemic drugs; Z79.51 Long term (current) use of inhaled steroids; Z79.82 Long term (current) use of aspirin; Z79.899 Other long term (current) drug therapy; Z91.040 Latex allergy status; F17.210 Nicotine dependence, cigarettes, uncomplicated
CPT/HCPCS: 45385; 82947; 88305; 94640

== ENCOUNTER → 2021-10-29 13:17 | Outpatient (BNVA) | payer OTHER, SELFPAY | PROVIDERS: PCP Internal Medicine; Visit Provider Internal Medicine | DX: J43.9 Emphysema, unspecified (principal); J30.9 Allergic rhinitis, unspecified; Z72.0 Tobacco use | CPT/HCPCS: 99212 ==

== ENCOUNTER 2021-11-07 12:59 | Outpatient (REF) | payer OTHER, SELFPAY ==
--- NOTE | ~2021-11-07 | MM_ITS ---
EXAMINATION: MM SCREENING DIGITAL BREAST TOMOSYNTHESIS, BILATERAL CLINICAL INFORMATION: Screening. Asymptomatic. The lifetime risk of breast cancer based on the Tyrer-Cuzick Model is 11%. COMPARISON: Mammography: October 23, 2020 and studies dating back to September 26, 2013 TECHNIQUE: Digital breast tomosynthesis is performed in both the craniocaudal and mediolateral oblique views along with computer-aided detection (CAD). Synthesized 2D images are generated from the tomosynthesis. FINDINGS: There are scattered areas of fibroglandular density (ACR BI-RADS breast composition Category b). There are no new significant masses, abnormal calcifications, or other abnormalities. There is a stable region of architectural distortion seen about the central lateral aspect of the right breast on craniocaudal view. MM/MM tomosynthesis screening BI IMPRESSION: There are no significant changes from prior study. ASSESSMENT: BI-RADS 2: Benign RECOMMENDATION: Routine annual mammography screening. This patient's information was entered into a reminder system with a target due date for their next mammogram.
== END 2021-11-07 13:00 | disposition home or self-care (01) ==
LOC: HO.MAMMO 12:59
PROVIDERS: PCP Internal Medicine; Visit Provider Internal Medicine
DX: Z12.31 Encounter for screening mammogram for malignant neoplasm of breast (principal)
CPT/HCPCS: 77063; 77067

== ENCOUNTER → 2022-02-27 12:52 | Outpatient (BNVA) | payer OTHER, SELFPAY | PROVIDERS: PCP Internal Medicine; Visit Provider Internal Medicine | DX: J43.9 Emphysema, unspecified (principal); J30.9 Allergic rhinitis, unspecified; F17.210 Nicotine dependence, cigarettes, uncomplicated | CPT/HCPCS: 99212 ==

== ENCOUNTER 2022-03-07 13:14 | Outpatient (REF) | payer OTHER, SELFPAY ==
[2022-03-07 13:37] LABS: MANUAL DIFF FLAG NO
[2022-03-07 13:41] LABS: Basophils Absolute Auto 0.1 X10*3/uL (0.0-0.2); Basophils Percent Auto 0.6 % (0-2); Eosinophils Absolute Auto 0.2 X10*3/uL (0.0-0.4); Eosinophils Percent Auto 2.1 % (0-4); Hematocrit 40.3 % (37.0-47.0); Hemoglobin 13.5 g/dl (12.0-16.0); Imm Gran Abs Auto 0.04 X10*3/uL (0.00-0.03); Imm Gran Pct Auto 0.4 % (0.0-0.4); Lymphocytes Absolute Auto 2.1 X10*3/uL (1.2-4.9); Lymphocytes Percent Auto 21.3 % (20-40); Mean Corpuscular HGB Conc 33.5 g/dl (31.0-35.0); Mean Corpuscular Hemoglobin 32.5 pg (27.0-33.0); Mean Corpuscular Volume 96.9 fL (80.0-98.0); Monocytes Absolute Auto 0.8 X10*3/uL (0.1-1.2); Monocytes Percent Auto 8.2 % (2-11); Neutrophils Absolute Auto 6.7 x10*3/uL (2.0-8.3); Neutrophils Percent Auto 67.4 % (45-73); Platelet Count 164 X10*3/uL (160-400); Red Blood Count 4.16 X10*6/uL (4.20-5.50); Red Cell Distribution Width 13.1 % (11.0-16.0); White Blood Count 9.9 X10*3/uL (4.8-10.8)
[2022-03-07 13:49] LABS: Estimated Average Glucose 137 mg/dL; Hemoglobin A1c % 6.4 %
[2022-03-07 14:03] LABS: Alanine Aminotransferase 21 U/L (0-31); Albumin Level 4.3 g/dL (3.5-5.0); Alkaline Phosphatase 79 U/L (39-117); Anion Gap 14 (12-20); Aspartate Amino Transferase 16 U/L (5-31); Bilirubin Total 1.3 mg/dL (0.0-1.0); Blood Urea Nitrogen 25 mg/dL (9-16); Calcium 9.7 mg/dL (8.4-10.2); Carbon Dioxide 27 mmol/L (22-29); Chloride 105 mmol/L (96-108); Cholesterol 109 mg/dL; Estimated Glomerular Filt Rate > 60; Glucose Random 114 mg/dL (60-115); HDL Cholesterol 33 mg/dL; LDL Cholesterol Calculated 62 mg/dl; Potassium 4.6 mmol/L (3.3-5.1); Sodium 141 mmol/L (135-145); Total Protein 6.9 g/dL (6.5-8.0); Triglycerides 74 mg/dL
[2022-03-07 14:24] LABS: Thyroid Stimulating Hormone 0.77 uIU/mL (0.32-4.0); Vitamin D 25-OH Total 45.8 ng/mL (>30)
[2022-03-07 14:52] LABS: Folate 12.3 ng/mL (> or = 4.0); Vitamin B12 317 pg/mL (200-900)
[2022-03-07 15:15] LABS: Microalbumin Urine < 5.0 mg/L
[2022-03-07 17:26] LABS: Creatinine Urine 29.28 mg/dL
== END 2022-03-07 13:15 | disposition home or self-care (01) ==
LOC: HO.LAB 13:14
PROVIDERS: PCP Internal Medicine; Visit Provider Internal Medicine
DX: K21.9 Gastro-esophageal reflux disease without esophagitis (principal); E03.9 Hypothyroidism, unspecified; E78.00 Pure hypercholesterolemia, unspecified; E11.65 Type 2 diabetes mellitus with hyperglycemia
CPT/HCPCS: 36415; 80053; 80061; 82043; 82306; 82607; 82746; 83036; 84439; 84443; 85025

== ENCOUNTER 2022-03-20 17:39 | Inpatient (IN) | payer OTHER, SELFPAY ==
--- NOTE | ~2022-03-20 | CT_ITS ---
EXAMINATION: CT SOFT TISSUE NECK WITH CONTRAST CLINICAL INFORMATION: Tongue and throat swelling COMPARISON: None TECHNIQUE: Following the intravenous administration of 60 mL of Omnipaque 350 intravenous contrast, helical imaging was performed in the axial plane with generation of coronal and sagittal reformatted images. This CT examination was performed using dose optimization techniques as appropriate, variously including the following: *Automated exposure control *Adjustment of mA and/or kV according to patient size (this includes techniques or standardized protocols for targeted exams where dose is matched to indication/reason for exam; i.e. extremities or head) *Use of iterative reconstruction technique DLP: 456 mGy-cm FINDINGS: Small low-density nodule in the superficial left parotid gland likely intraparotid lymph node. Major salivary glands otherwise unremarkable. Thyroid gland is normal. No cervical lymphadenopathy. No mucosal space mass identified. Laryngeal structures including the epiglottis are unremarkable. There is subtle infiltration/edema in the retropharyngeal space. No fluid collection or abnormal enhancement. Unremarkable appearance of the tongue. Internal jugular veins are patent bilaterally. Common and internal carotid arteries are patent. Mild to moderate calcifications of the left carotid bifurcation. No upper mediastinal lymphadenopathy. Status post bilateral lens extractions. Right-sided intraocular drainage device noted. Globes and retro-orbital structures otherwise unremarkable. Visualized intracranial contents grossly unremarkable. Imaged upper lungs are clear. No acute fracture or suspicious osseous lesion. Mild multilevel spondylosis in the cervical and upper thoracic spine. Prominent focus of chronic proliferative bone projecting anteriorly from the anterior arch of C1 is noted. Visualized paranasal sinuses and mastoid air cells are normally aerated. CT/CT soft tissue neck w IV con IMPRESSION: 1. Subtle infiltration/edema in the retropharyngeal space. No fluid collection or abnormal enhancement identified. Findings nonspecific. Correlate clinically with signs or symptoms of pharyngitis. 2. No cervical lymphadenopathy or mass. 3. Unremarkable appearance of the tongue.
--- NOTE | ~2022-03-20 | XR_ITS ---
EXAMINATION: XR CHEST CLINICAL INFORMATION: Chest pain COMPARISON: Chest CT 08/04/2019 and chest x-ray 11/13/2016 TECHNIQUE: 2 views of the chest were obtained. FINDINGS: Cardiac silhouette is normal in size. The lungs are adequately aerated. There is no lobar consolidation. No pleural effusion or pneumothorax. Mild degenerative changes of the spine. XR/XR chest 2V IMPRESSION: No acute pulmonary pathology.
[2022-03-20 17:42] VITALS: BP 119/86; PULSE 92; RESP 18; TEMP 36.2; O2SAT 96
--- NOTE | 2022-03-20 17:50 | ECG_ITS ---
Test Reason : SYNCOPE Blood Pressure : / mmHG Vent. Rate : 077 BPM Atrial Rate : 077 BPM P-R Int : 184 ms QRS Dur : 066 ms QT Int : 398 ms P-R-T Axes : -17 050 013 degrees QTc Int : 450 ms Normal sinus rhythm Normal ECG When compared with ECG of 24-APR-2017 11:35, Nonspecific T wave abnormality has replaced inverted T waves in Inferior leads Heart rate has increased Referred By: Generic ED Physician Electronically Signed By:MARGA VILLANUEVA MD
--- NOTE | 2022-03-20 17:58 | PC.NURSE ---
Pt is able to speak full sentences. +breath sounds heard in upper airway. Maintaining Spo2 on RA.
--- NOTE | 2022-03-20 18:00 | ED.GENADULT ---
HPI - General Adult General Chief complaint: General Medical Stated complaint: Trouble swallowing Time Seen by Provider: 03/20/22 18:00 Source: patient Mode of arrival: ambulatory Limitations: no limitations History of Present Illness HPI narrative: 66-year-old female presents from urgent care for tongue and throat swelling. Patient states that she fell yesterday, tripped over her own feet, and landed on her chest. Patient then reports multiple episodes of vomiting, and was unable to get up off the ground for several hours. Her family member came home from work and was able to help her up. Patient was ambulatory to the emergency department. Her main complaint is throat and tongue swelling, does not report any other concerning symptoms. She denies chest pain or pressure, palpitations, shortness of breath abdominal distention, dysuria, hematuria, fevers and chills. Onset (ago): day(s) (2) Location: mouth and neck Radiation: non-radiation Severity: mild Severity scale (1-10): 3 Quality: constant Relieving factors: none Exacerbating factors: eating Associated symptoms: denies other symptoms Treatments prior to arrival: none Related Data Home Medications Medication Instructions Recorded Confirmed blood sugar diagnostic #10 ea 02/22/20 02/27/22 blood-glucose meter #1 ea 02/22/20 02/27/22 clonazepam 1 mg tablet 1 mg PO TID PRN Anxiety 02/22/20 02/27/22 nystatin 100,000 unit/gram topical topical 02/22/20 02/27/22 powder timolol maleate 0.5 % eye drops 1 drp ophthalmic (eye) BID 02/22/20 02/27/22 venlafaxine 75 mg capsule,extended 75 mg PO DAILY 02/22/20 02/27/22 release 24 hr fluocinolone 0.01 % topical 1 applic topical BID 03/23/20 02/27/22 solution aspirin 81 mg tablet,delayed 81 mg PO DAILY 05/15/20 02/27/22 release (Adult Low Dose Aspirin) betamethasone dipropionate 0.05 % topical 05/15/20 02/27/22 topical ointment albuterol sulfate 90 mcg/actuation 2 puff inhalation Q6H PRN Wheezing 06/29/20 02/27/22 aerosol inhaler (Proventil HFA) lactulose 10 gram/15 mL oral 15 ml PO DAILY PRN 07/12/20 02/27/22 solution Gastrointestinal Spasms Or Cramping tafluprost (PF) 0.0015 % eye drops 1 drp ophthalmic (eye) BEDTIME 09/18/20 02/27/22 in a dropperette timolol maleate (PF) 0.5 % eye drp ophthalmic (eye) 10/29/21 02/27/22 drops in a dropperette Previous Rx's Medication Instructions Recorded blood sugar diagnostic (FreeStyle #3 boxes 02/05/21 Lite Strips) lancets 28 gauge (FreeStyle #3 boxes 02/05/21 Lancets) lisinopril 30 mg tablet 30 mg PO DAILY 90 days #90 tabs 04/16/21 levothyroxine 100 mcg tablet 100 mcg PO DAILY #90 tabs 06/24/21 nitroglycerin 0.4 mg sublingual 0.4 mg sublingual Q5M PRN chest 07/04/21 tablet pain 30 days #25 tabs nicotine 14 mg/24 hr daily 1 patch transdermal Q24H smoking 07/16/21 transdermal patch 28 days #28 ea glucose 4 gram chewable tablet 4 g PO Q15M PRN hypoglycemia #30 07/24/21 (Dex4 Glucose) tabs oxycodone 5 mg tablet 5 mg PO DAILY PRN pain #30 tabs 07/25/21 incontinence pad, liner, disp #90 ea 09/18/21 metoprolol succinate 25 mg 25 mg PO DAILY #90 tabs 09/23/21 tablet,extended release 24 hr ezetimibe 10 mg tablet (Zetia) 10 mg PO DAILY 90 days #90 tabs 11/07/21 hydrocortisone 2.5 % topical cream 1 appl DE BID-QID PRN hemorrhoids 11/07/21 with perineal applicator #30 grams (Proctosol HC) metformin 500 mg tablet 500 mg PO BID 30 days #180 tabs 11/07/21 Breo Ellipta 200 mcg-25 mcg/dose 1 ea PO DAILY #180 ea 01/08/22 powder for inhalation (fluticasone furoate-vilanterol) atorvastatin 80 mg tablet 80 mg PO DAILY 90 days #90 tabs 01/08/22 fluticasone propionate 50 2 spray intranasal DAILY #16 grams 01/16/22 mcg/actuation nasal spray,suspension gabapentin 100 mg capsule 100 mg PO BEDTIME #90 caps 01/16/22 cholecalciferol (vitamin D3) 25 25 mcg PO DAILY #90 tabs 02/12/22 mcg (1,000 unit) tablet oxycodone 5 mg tablet 5 mg PO BID PRN pain #60 tabs 03/20/22 Allergies Allergy/AdvReac Type Severity Reaction Status Date / Time LATEX Allergy Intermediate rash Verified 02/27/22 13:32 MOLD Allergy Intermediate rash Verified 02/27/22 13:32 NONORGANIC FOOD Allergy Intermediate diarrhea Verified 02/27/22 13:32 YEAST Allergy Intermediate diarrhea Verified 02/27/22 13:32 Review of Systems Review of Systems: Constitutional: No Fever, No Chills ENT/Mouth: Positive tongue and throat swelling, No Ear Pain, No Hoarseness, positive sore throat Eyes: No Eye Pain, No Swelling, No Redness, No Foreign Body Cardiovascular: No Chest Pain, No SOB Respiratory: No Cough, No Dyspnea Gastrointestinal: No Nausea, No Vomiting, No Diarrhea, No abdominal Pain Genitourinary: No Dysuria, No Hematuria Musculoskeletal: positive chronic back pain, No Myalgias, No Joint Swelling Skin: No Skin lacerations, No rash Neuro: No Weakness, No Numbness, No Paresthesias, No Loss of Consciousness, No Dizziness, No Headache Psych: No Anxiety/Panic, No Depression Heme/Lymph: no easy bruising, no Lymphadenopathy Endocrine: No Polyuria, No Polydipsia Yes all other systems are reviewed and are negative [facility] Past Medical History Attestation statement: The following information was validated with the patient. Source: old records reviewed Medical History Allergic rhinitis Anxiety and depression Carpal tunnel syndrome Cataract COPD (chronic obstructive pulmonary disease) Coronary artery disease GERD (gastroesophageal reflux disease) Glaucoma Goiter diffuse Franky's disease Hypercholesterolemia Hypertension Hypothyroid Obesity (BMI 30-39.9) Tobacco abuse Type 2 diabetes mellitus with hyperglycemia Surgical History History of tubal ligation Hx of section Family History Family History Father Myocardial infarct Maternal Grandmother Breast cancer Mother Pancreatic cancer Sister Bipolar 1 disorder Other Mental problem Social History Social History Housing: House Alcohol intake: current Alcohol intake frequency: holidays/special occasions only Patient Tobacco Use Status: Current everyday Tobacco user Tobacco use type: Cigarette Cigarettes Per Day: 4 Years Smoked: 4 cigarettes a day e-Cigarette/Vaping Use: Never Used Advance Directives: Yes Advance Directives Information Provided: No Advance Directives on File: No service: No Current occupational status: disabled Cognitive needs: No Hearing needs: No Vision needs: Yes Physical Exam ED Vital Signs: Vital Signs - 24 hr 03/20/22 17:42 03/20/22 20:27 Temperature 97.1 F Pulse Rate 92 73 Respiratory Rate 18 16 Blood Pressure 119/86 127/55 L Pulse Oximetry 96 Oxygen Delivery Method Room Air BMI result Body Mass Index 30.0 Appearance: Alert. Oriented X3. No acute distress. Eyes: Pupils equal, round and reactive to light. Sclera nonicteric. ENT: Tongue appears swollen, uvula intact. Mallampati 3. Neck: Normal inspection. Neck supple. No vertebral tenderness or step-offs. No nuchal rigidity. No mastoid tenderness. No cervical lymphadenopathy. CVS: Normal heart rate and rhythm. Pulses normal. Respiratory: No respiratory distress. Breath sounds normal. Abdomen: Soft and nontender. Skin: Skin warm and dry. Normal skin color. Normal skin turgor. Extremities: No lower extremity edema. Gait is balanced and coordinated. Neuro: No motor deficit. No sensory deficit. Cranial nerves 2-12 intact. Course Course Course Narrative: 66-year-old female presents for tongue and throat swelling and for evaluation for injury sustained from a fall that occurred yesterday. Patient's tongue is visibly swollen, airway is patent, able to swallow water, no tracheal stridor, lung sounds clear to auscultation all lobes. No chest wall tenderness to palpation. Will order labs, CT scan of the neck, and chest x-ray. Chest x-ray negative for acute findings. Will give dexamethasone for swelling. Patient does take lisinopril, this could possibly be angioedema versus strep or soft tissue injury. 23:30 subtle infiltration in edema in the retropharyngeal space no fluid collection or abnormal enhancement identified. 00:31 patient will be admitted for injury sustained from a fall, unable to determine if swelling is due to trauma or angioedema. Patient will be admitted for observation. Consultations Consultation #1: beau Time: 00:32 Medical Decision Making Differential Diagnosis Differential Diagnosis: Pharyngitis, viral syndrome, angioedema, allergic reaction, traumatic injur Medical Records Medical records reviewed: Yes I reviewed the patient's medical records. Lab Data Lab results reviewed: Yes I reviewed the patient's lab results. Result diagrams: 03/20/22 18:53 03/20/22 18:53 Labs: Lab Results 03/20/22 03/20/22 03/20/22 Range/Units 18:53 18:53 18:53 WBC 12.7 H (4.8-10.8) X10*3/uL RBC 4.46 (4.20-5.50) X10*6/uL Hgb 14.5 (12.0-16.0) g/dl Hct 41.9 (37.0-47.0) % MCV 93.9 (80.0-98.0) fL MCH 32.5 (27.0-33.0) pg MCHC 34.6 (31.0-35.0) g/dl RDW 12.8 (11.0-16.0) % Plt Count 154 L (160-400) X10*3/uL MPV 9.0 L (9.4-12.3) fL Immature Gran % (Auto) 0.3 (0.0-0.4) % Neut % (Auto) 73.8 H (45-73) % Lymph % (Auto) 14.1 L (20-40) % [place] % (Auto) 10.6 (2-11) % Eos % (Auto) 0.8 (0-4) % Baso % (Auto) 0.4 (0-2) % Lymph # (Auto) 1.8 (1.2-4.9) X10*3/uL [place] # (Auto) 1.3 H (0.1-1.2) X10*3/uL Eos # (Auto) 0.1 (0.0-0.4) X10*3/uL Baso # (Auto) 0.1 (0.0-0.2) X10*3/uL Abs Immat Gran (auto) 0.04 H (0.00-0.03) X10*3/uL Absolute Neuts (auto) 9.4 H (2.0-8.3) x10*3/uL Absolute Nucleated RBC 0.000 (0.0-0.012) X10*3/uL Nucleated RBC % (auto) 0.0 (0.0-0.2) /100WBC Sodium 136 (135-145) mmol/L Potassium 4.2 (3.3-5.1) mmol/L Chloride 98 (96-108) mmol/L Carbon Dioxide 25 (22-29) mmol/L Anion Gap 17 (12-20) BUN 17 H (9-16) mg/dL Creatinine 0.74 (0.5-1.4) mg/dL Estim Creat Clear Calc 69.7 Estimated GFR > 60 Random Glucose 131 H (60-115) mg/dL Calcium 9.9 (8.4-10.2) mg/dL Magnesium 1.6 (1.6-2.6) mg/dL Total Bilirubin 2.0 H (0.0-1.0) mg/dL Direct Bilirubin 0.7 H (0.0-0.5) mg/dL AST 31 D (5-31) U/L ALT 32 H (0-31) U/L Alkaline Phosphatase 90 (39-117) U/L Total Creatine Kinase 885 H (26-140) U/L Troponin I High Sens (<3.5-17.0) ng/L Total Protein 7.3 (6.5-8.0) g/dL Albumin 4.4 (3.5-5.0) g/dL Lipase 59 (8-78) U/L Urine Color Urine Appearance Urine pH (5.0-9.0) Ur Specific Stigler (1.005-1.025) Urine Protein (Neg-Trace) mg/dL Urine Glucose (UA) (Negative) mg/dL Urine Ketones (Negative) mg/dL Urine Blood (Negative) Urine Nitrite (Negative) Ur Leukocyte Esterase (Negative) Influenza Type A (PCR) (Negative) Influenza Type B (PCR) (Negative) RSV RNA Qual (PCR) (Negative) SARS-CoV-2 RNA (RT-PCR) (Negative) S. pyogenes GrpA ROB (Negative) 03/20/22 03/20/22 03/20/22 Range/Units 18:53 18:53 18:53 WBC (4.8-10.8) X10*3/uL RBC (4.20-5.50) X10*6/uL Hgb (12.0-16.0) g/dl Hct (37.0-47.0) % MCV (80.0-98.0) fL MCH (27.0-33.0) pg MCHC (31.0-35.0) g/dl RDW (11.0-16.0) % Plt Count (160-400) X10*3/uL MPV (9.4-12.3) fL Immature Gran % (Auto) (0.0-0.4) % Neut % (Auto) (45-73) % Lymph % (Auto) (20-40) % [place] % (Auto) (2-11) % Eos % (Auto) (0-4) % Baso % (Auto) (0-2) % Lymph # (Auto) (1.2-4.9) X10*3/uL [place] # (Auto) (0.1-1.2) X10*3/uL Eos # (Auto) (0.0-0.4) X10*3/uL Baso # (Auto) (0.0-0.2) X10*3/uL Abs Immat Gran (auto) (0.00-0.03) X10*3/uL Absolute Neuts (auto) (2.0-8.3) x10*3/uL Absolute Nucleated RBC (0.0-0.012) X10*3/uL Nucleated RBC % (auto) (0.0-0.2) /100WBC Sodium (135-145) mmol/L Potassium (3.3-5.1) mmol/L Chloride (96-108) mmol/L Carbon Dioxide (22-29) mmol/L Anion Gap (12-20) BUN (9-16) mg/dL Creatinine (0.5-1.4) mg/dL Estim Creat Clear Calc Estimated GFR Random Glucose (60-115) mg/dL Calcium (8.4-10.2) mg/dL Magnesium (1.6-2.6) mg/dL Total Bilirubin (0.0-1.0) mg/dL Direct Bilirubin (0.0-0.5) mg/dL AST (5-31) U/L ALT (0-31) U/L Alkaline Phosphatase (39-117) U/L Total Creatine Kinase (26-140) U/L Troponin I High Sens < 3.5 (<3.5-17.0) ng/L Total Protein (6.5-8.0) g/dL Albumin (3.5-5.0) g/dL Lipase (8-78) U/L Urine Color Urine Appearance Urine pH (5.0-9.0) Ur Specific St[place] (1.005-1.025) Urine Protein (Neg-Trace) mg/dL Urine Glucose (UA) (Negative) mg/dL Urine Ketones (Negative) mg/dL Urine Blood (Negative) Urine Nitrite (Negative) Ur Leukocyte Esterase (Negative) Influenza Type A (PCR) NEGATIVE (Negative) Influenza Type B (PCR) NEGATIVE (Negative) RSV RNA Qual (PCR) NEGATIVE (Negative) SARS-CoV-2 RNA (RT-PCR) NEGATIVE (Negative) S. pyogenes GrpA ROB Negative (Negative) 03/20/22 Range/Units 18:53 WBC (4.8-10.8) X10*3/uL RBC (4.20-5.50) X10*6/uL Hgb (12.0-16.0) g/dl Hct (37.0-47.0) % MCV (80.0-98.0) fL MCH (27.0-33.0) pg MCHC (31.0-35.0) g/dl RDW (11.0-16.0) % Plt Count (160-400) X10*3/uL MPV (9.4-12.3) fL Immature Gran % (Auto) (0.0-0.4) % Neut % (Auto) (45-73) % Lymph % (Auto) (20-40) % [place] % (Auto) (2-11) % Eos % (Auto) (0-4) % Baso % (Auto) (0-2) % Lymph # (Auto) (1.2-4.9) X10*3/uL [place] # (Auto) (0.1-1.2) X10*3/uL Eos # (Auto) (0.0-0.4) X10*3/uL Baso # (Auto) (0.0-0.2) X10*3/uL Abs Immat Gran (auto) (0.00-0.03) X10*3/uL Absolute Neuts (auto) (2.0-8.3) x10*3/uL Absolute Nucleated RBC (0.0-0.012) X10*3/uL Nucleated RBC % (auto) (0.0-0.2) /100WBC Sodium (135-145) mmol/L Potassium (3.3-5.1) mmol/L Chloride (96-108) mmol/L Carbon Dioxide (22-29) mmol/L Anion Gap (12-20) BUN (9-16) mg/dL Creatinine (0.5-1.4) mg/dL Estim Creat Clear Calc Estimated GFR Random Glucose (60-115) mg/dL Calcium (8.4-10.2) mg/dL Magnesium (1.6-2.6) mg/dL Total Bilirubin (0.0-1.0) mg/dL Direct Bilirubin (0.0-0.5) mg/dL AST (5-31) U/L ALT (0-31) U/L Alkaline Phosphatase (39-117) U/L Total Creatine Kinase (26-140) U/L Troponin I High Sens (<3.5-17.0) ng/L Total Protein (6.5-8.0) g/dL Albumin (3.5-5.0) g/dL Lipase (8-78) U/L Urine Color Yellow Urine Appearance Clear Urine pH 6.0 (5.0-9.0) Ur Specific St[place] <= 1.005 (1.005-1.025) Urine Protein Negative (Neg-Trace) mg/dL Urine Glucose (UA) Negative (Negative) mg/dL Urine Ketones Negative (Negative) mg/dL Urine Blood Negative (Negative) Urine Nitrite Negative (Negative) Ur Leukocyte Esterase Negative (Negative) Influenza Type A (PCR) (Negative) Influenza Type B (PCR) (Negative) RSV RNA Qual (PCR) (Negative) SARS-CoV-2 RNA (RT-PCR) (Negative) S. pyogenes GrpA ROB (Negative) Imaging Data Chest x-ray: Attestation: I personally reviewed and interpreted this imaging study as follows: Radiologist's impression: EXAMINATION: XR CHEST CLINICAL INFORMATION: Chest pain COMPARISON: Chest CT 08/04/2019 and chest x-ray 11/13/2016 TECHNIQUE: 2 views of the chest were obtained. FINDINGS: Cardiac silhouette is normal in size. The lungs are adequately aerated. There is no lobar consolidation. No pleural effusion or pneumothorax. Mild degenerative changes of the spine. XR/XR chest 2V IMPRESSION: No acute pulmonary pathology. CT soft tissue neck: Attestation: I personally reviewed and interpreted this imaging study as follows: Radiologist's impression: DLP: 456 mGy-cm FINDINGS: Small low-density nodule in the superficial left parotid gland likely intraparotid lymph node. Major salivary glands otherwise unremarkable. Thyroid gland is normal. No cervical lymphadenopathy. No mucosal space mass identified. Laryngeal structures including the epiglottis are unremarkable. There is subtle infiltration/edema in the retropharyngeal space. No fluid collection or abnormal enhancement. Unremarkable appearance of the tongue. Internal jugular veins are patent bilaterally. Common and internal carotid arteries are patent. Mild to moderate calcifications of the left carotid bifurcation. No upper mediastinal lymphadenopathy. Status post bilateral lens extractions. Right-sided intraocular drainage device noted. Globes and retro-orbital structures otherwise unremarkable. Visualized intracranial contents grossly unremarkable. Imaged upper lungs are clear. No acute fracture or suspicious osseous lesion. Mild multilevel spondylosis in the cervical and upper thoracic spine. Prominent focus of chronic proliferative bone projecting anteriorly from the anterior arch of C1 is noted. Visualized paranasal sinuses and mastoid air cells are normally aerated. CT/CT soft tissue neck w IV con IMPRESSION: 1.? Subtle infiltration/edema in the retropharyngeal space. No fluid collection or abnormal enhancement identified. Findings nonspecific. Correlate clinically with signs or symptoms of pharyngitis. 2.? No cervical lymphadenopathy or mass. 3.? Unremarkable appearance of the tongue. ? ECG Data Attestation: I personally reviewed and interpreted this ECG as follows: Prior ECG tracings: available for review Interpretation: Vent. rate 77 BPM DE interval 184 ms QRS duration 66 ms QT/QTc 398/450 ms P-R-T axes -17 50 13 Normal sinus rhythm Normal ECG When compared with ECG of 24-APR-2017 11:35, Nonspecific T wave abnormality has replaced inverted T waves in Inferior leads 20-MAR-2022 17:53:21 Critical Care Time Critical Care Time Critical Care Time: Yes Total Critical Care Time: 35 Attestation: I have personally provided critical care time exclusive of time spent on separately billable procedures. Time includes review of laboratory data, radiology results, discussion with consultants, and monitoring for potential decompensation. Interventions were performed as documented. Discharge Plan Discharge Clinical Impression: Fall, Pharyngeal edema Patient Disposition: Admitted as Observation
[2022-03-20 19:00] LABS: MANUAL DIFF FLAG NO
[2022-03-20 19:04] LABS: Basophils Absolute Auto 0.1 X10*3/uL (0.0-0.2); Basophils Percent Auto 0.4 % (0-2); Eosinophils Absolute Auto 0.1 X10*3/uL (0.0-0.4); Eosinophils Percent Auto 0.8 % (0-4); Hematocrit 41.9 % (37.0-47.0); Hemoglobin 14.5 g/dl (12.0-16.0); Imm Gran Abs Auto 0.04 X10*3/uL (0.00-0.03); Imm Gran Pct Auto 0.3 % (0.0-0.4); Lymphocytes Absolute Auto 1.8 X10*3/uL (1.2-4.9); Lymphocytes Percent Auto 14.1 % (20-40); Mean Corpuscular HGB Conc 34.6 g/dl (31.0-35.0); Mean Corpuscular Hemoglobin 32.5 pg (27.0-33.0); Mean Corpuscular Volume 93.9 fL (80.0-98.0); Monocytes Absolute Auto 1.3 X10*3/uL (0.1-1.2); Monocytes Percent Auto 10.6 % (2-11); Neutrophils Absolute Auto 9.4 x10*3/uL (2.0-8.3); Neutrophils Percent Auto 73.8 % (45-73); Platelet Count 154 X10*3/uL (160-400); Red Blood Count 4.46 X10*6/uL (4.20-5.50); Red Cell Distribution Width 12.8 % (11.0-16.0); White Blood Count 12.7 X10*3/uL (4.8-10.8)
[2022-03-20 19:05] LABS: Appearance Urine Clear; Color Urine Yellow; Glucose Urine UA Negative (Negative); Leukocyte Esterase Urine Negative (Negative); Nitrite Urine Negative (Negative); Specific Gravity - Urine <= 1.005 (1.005-1.025); Urine Blood Negative (Negative); Urine Ketones Negative (Negative); Urine Protein Negative (Neg-Trace)
[2022-03-20 19:16] LABS: Strep A Nucleic Acid Negative (Negative)
[2022-03-20 19:26] LABS: Magnesium 1.6 mg/dL (1.6-2.6)
[2022-03-20 19:28] LABS: Alanine Aminotransferase 32 U/L (0-31); Albumin Level 4.4 g/dL (3.5-5.0); Alkaline Phosphatase 90 U/L (39-117); Anion Gap 17 (12-20); Aspartate Amino Transferase 31 U/L (5-31); Bilirubin Direct 0.7 mg/dL (0.0-0.5); Blood Urea Nitrogen 17 mg/dL (9-16); Calcium 9.9 mg/dL (8.4-10.2); Carbon Dioxide 25 mmol/L (22-29); Chloride 98 mmol/L (96-108); Creatinine Clr Calc Pharmacy 69.7; Estimated Glomerular Filt Rate > 60; Glucose Random 131 mg/dL (60-115); Lipase 59 U/L (8-78); Potassium 4.2 mmol/L (3.3-5.1); Sodium 136 mmol/L (135-145); Total Protein 7.3 g/dL (6.5-8.0)
[2022-03-20 19:34] LABS: Troponin-I High Sensitivity < 3.5 ng/L (<3.5-17.0)
[2022-03-20 19:45] LABS: Influenza A PCR NEGATIVE (Negative); Influenza B PCR NEGATIVE (Negative); Resp Syncy Virus RNA Qual PCR NEGATIVE (Negative); SARS COV2 PCR INHOUSE NEGATIVE (Negative)
[2022-03-20] MEDS: 0.9 % Sodium Chloride 1,000 ML 999 ML IVCONT (20:25)
--- NOTE | 2022-03-20 20:26 | PC.NURSE ---
Patient awake and alert. skin pwd. resp even and non labored. speaking in full, clear sentenes. voice is hoarse and patient continues to c/o sore throat. IV fluids as ordered.
[2022-03-20 20:27] VITALS: BP 127/55; PULSE 73; RESP 16
--- NOTE | 2022-03-20 20:30 | PC.NURSE ---
Patient c/o tongue feeling swollen, tongue is enlarged. denies diff breathing. Provider to bedside to assess patient. patient aware of plan of care for admit
[2022-03-20] MEDS: dexAMETHasone sod phosphate 10 MG/ML VIAL IVPUSH (20:58)
[2022-03-20] MEDS: iohexoL 350 MG/ML 100 ML INFUS..BTL 60 ML IV (22:12)
[2022-03-21] VITALS (8 sets, daily range): BP systolic 101–141; BP diastolic 51–86; PULSE 57–89; RESP 14–18; TEMP 36–37.1; O2SAT 95–100
[2022-03-21] MEDS: Enoxaparin Sodium 40 MG/0.4 ML SYRINGE SUBCUT (01:19)
[2022-03-21] MEDS: dexAMETHasone sod phosphate 4 MG/ML VIAL IVPUSH ×4 (01:20→18:03)
[2022-03-21] MEDS: diphenhydrAMINE HCL 50 MG/ML VIAL 25 MG IVPUSH (01:20)
--- NOTE | 2022-03-21 02:43 | PC.NURSE ---
patient sleeping. chest rise and fall equal and unlabored. no signs of resp distress. will continue to monitor. call martinez within reach
[2022-03-21 04:50] LABS: Glucose, Whole Blood 172 mg/dL (60-115)
[2022-03-21 06:03] LABS: Basophils Percent Auto 0.3 % (0-2); Hematocrit 38.5 % (37.0-47.0); Hemoglobin 12.9 g/dl (12.0-16.0); Imm Gran Abs Auto 0.04 X10*3/uL (0.00-0.03); Imm Gran Pct Auto 0.5 % (0.0-0.4); Lymphocytes Absolute Auto 0.5 X10*3/uL (1.2-4.9); Lymphocytes Percent Auto 7.1 % (20-40); MANUAL DIFF FLAG SCAN; Mean Corpuscular HGB Conc 33.5 g/dl (31.0-35.0); Mean Corpuscular Hemoglobin 32.2 pg (27.0-33.0); Mean Platelet Volume 9.5 fL (9.4-12.3); Monocytes Absolute Auto 0.1 X10*3/uL (0.1-1.2); Monocytes Percent Auto 1.2 % (2-11); Neutrophils Absolute Auto 6.9 x10*3/uL (2.0-8.3); Neutrophils Percent Auto 90.9 % (45-73); Platelet Count 131 X10*3/uL (160-400); Red Blood Count 4.01 X10*6/uL (4.20-5.50); Red Cell Distribution Width 12.8 % (11.0-16.0); SCAN SMEAR FLAG 1; White Blood Count 7.6 X10*3/uL (4.8-10.8)
[2022-03-21 06:20] LABS: Anion Gap 17 (12-20); Blood Urea Nitrogen 17 mg/dL (9-16); Calcium 9.4 mg/dL (8.4-10.2); Carbon Dioxide 21 mmol/L (22-29); Chloride 107 mmol/L (96-108); Creatinine Clr Calc Pharmacy 72.7; Estimated Glomerular Filt Rate > 60; Glucose Random 176 mg/dL (60-115); Potassium 3.9 mmol/L (3.3-5.1); Sodium 141 mmol/L (135-145)
[2022-03-21 06:32] LABS: SLIDE REVIEW VERIFIED
--- NOTE | 2022-03-21 06:55 | PM.IMHP ---
History of Present Illness Date of Service: 03/21/22 Chief Complaint: throat pain 66-year-old female with past medical history diabetes, hypothyroidism, hypertension, anxiety and depression, COPD, GERD, HLD, CAD status post stent, who presents to the hospital with complaints of difficulty swallowing after having a fall the day prior. Patient reports that she has been having difficulty with left hip pain, currently being evaluated for possible surgical intervention, she reports as a result he has difficulty walking around her house and has been having fall due to the pain. She had a mechanical fall yesterday after she tripped, she fell forward on her face and chest, she has significant tenderness in the chest area as well as in her throat, she tried to brace herself with her hand but was not successful. She reports that after falling she had multiple episodes of vomiting, she then had difficulty getting up because she had nothing to hold on to to brace herself. Her son found her on the floor to hours. She reports no loss of consciousness, no palpitations, no chest pain, no shortness of breath prior to the fall. She reports that about an hour after her son found her she started having difficulty swallowing. She reports no difficulty with breathing, no wheezing. Reports no swelling around her tongue or lips. She denies any abdominal pain, no diarrhea constipation, no urinary symptoms and no lower extremity edema. On arrival to the ED patient hemodynamically stable with no significant abnormal vitals Labs are significant for WBC count of 12.7, total bili of 2.0, which was previously slightly elevated, direct bili of 0.7, CPK of 885, UA negative Soft tissue CT of the neck showed subtle infiltrates/edema and the retropharyngeal space, with no fluid collection or abnormal enhancement identified. [facility] Medical History Allergic rhinitis Anxiety and depression Carpal tunnel syndrome Cataract COPD (chronic obstructive pulmonary disease) Coronary artery disease GERD (gastroesophageal reflux disease) Glaucoma Goiter diffuse Franky's disease Hypercholesterolemia Hypertension Hypothyroid Obesity (BMI 30-39.9) Tobacco abuse Type 2 diabetes mellitus with hyperglycemia Family History Father Myocardial infarct Maternal Grandmother Breast cancer Mother Pancreatic cancer Sister Bipolar 1 disorder Other Mental problem Surgical History History of tubal ligation Hx of section Social History Housing: House Alcohol intake: current Alcohol intake frequency: holidays/special occasions only Patient Tobacco Use Status: Current everyday Tobacco user Tobacco use type: Cigarette Cigarettes Per Day: 4 Years Smoked: 4 cigarettes a day e-Cigarette/Vaping Use: Never Used Advance Directives: Yes Advance Directives Information Provided: No Advance Directives on File: No service: No Current occupational status: disabled Cognitive needs: No Hearing needs: No Vision needs: Yes Meds Allergies Allergy/AdvReac Type Severity Reaction Status Date / Time LATEX Allergy Intermediate rash Verified 02/27/22 13:32 MOLD Allergy Intermediate rash Verified 02/27/22 13:32 NONORGANIC FOOD Allergy Intermediate diarrhea Verified 02/27/22 13:32 YEAST Allergy Intermediate diarrhea Verified 02/27/22 13:32 Active Medications: Current Medications Acetaminophen (Acetaminophen 325 Mg Tablet) 650 mg PO Q6H PRN PRN Reason: Pain, Mild (Pain Scale 1-3) Benzocaine (Throat Lozenge, Medicated Lozenge) 1 lozenge MUCOUS MEM Q2H PRN PRN Reason: Sore Throat Dexamethasone Sodium Phosphate (Dexamethasone Sod Phosphate 4 Mg/Ml Vial) 4 mg IVPUSH Q6H [facility] Last Admin: 03/21/22 01:20 Dose: 4 mg Dextrose (Dextrose 50 % 25 Gm/50 Ml Syringe) 25 gm IVPUSH Q15M PRN; Protocol PRN Reason: per Hypoglycemia Standing Ord. Docusate Sodium (Docusate Sodium 100 Mg Capsule) 100 mg PO DAILY PRN PRN Reason: Constipation Enoxaparin Sodium (Enoxaparin Sodium 40 Mg/0.4 Ml Syringe) 40 mg SUBCUT Q24H [facility] Last Admin: 03/21/22 01:19 Dose: 40 mg Glucose (Glucose Gel 15 Gm Gel..Gram.) 15 gm PO Q15M PRN; Protocol PRN Reason: per Hypoglycemia Standing Ord. Insulin Human Lispro (Insulin Lispro 100 Unit/Ml 3 Ml Vial) 0.1 - 10 unit SUBCUT QIDACHS [facility]; Protocol Ondansetron HCl (Ondansetron Hcl 4 Mg/2 Ml Vial) 4 mg IVPUSH Q8H PRN PRN Reason: Nausea and Vomiting Pharmacy Consult (Consult Rx Perform Med Rec) 1 each MISCELLANE ONCE STA Stop: 03/21/22 00:35 Sodium Chloride (0.9 % Sodium Chloride Flush 3 Ml Syringe) 3 ml IVFLUSH [facility] Home Medications Medication Instructions Recorded Confirmed Last Taken Type fluocinolone 0.01 % topical 1 applic topical BID 03/23/20 03/21/22 Unknown History solution aspirin 81 mg tablet,delayed 81 mg PO DAILY 05/15/20 03/21/22 09/17/21 History release (Adult Low Dose Aspirin) betamethasone dipropionate 0.05 % See Rx Instructions .Route .COMPLEX 05/15/20 03/21/22 Unknown History topical ointment albuterol sulfate 90 mcg/actuation 2 puff inhalation Q6H PRN Wheezing 06/29/20 03/21/22 Unknown History aerosol inhaler (Proventil HFA) lactulose 10 gram/15 mL oral 15 ml PO DAILY PRN 07/12/20 03/21/22 Unknown History solution Gastrointestinal Spasms Or Cramping tafluprost (PF) 0.0015 % eye drops 1 drp ophthalmic (eye) BEDTIME 09/18/20 03/21/22 Unknown History in a dropperette atorvastatin 80 mg tablet 80 mg PO BEDTIME 03/21/22 03/21/22 Unknown History ezetimibe 10 mg tablet (Zetia) 10 mg PO BEDTIME 03/21/22 03/21/22 Unknown History timolol maleate (PF) 0.5 % eye 1 drp ophthalmic (eye) BID 03/21/22 03/21/22 Unknown History drops in a dropperette Physical Exam Vital Signs and Narrative: Vital Signs: Last Vital Signs Temp 97.8 F 03/21/22 06:05 Pulse 59 03/21/22 06:05 Resp 14 03/21/22 06:05 BP 121/57 L 03/21/22 06:05 Pulse Ox 96 03/21/22 06:05 O2 Del Method 03/21/22 06:05 BMI result Body Mass Index 30.0 Const: General: cooperative and no acute distress Orientation/consciousness: patient oriented x3 HEENT: Other: Tenderness around the neck on palpation, no oral edema, tongue large but no evidence of swelling, Eyes: General: appearance normal, both eyes and all related structures Resp: Other: No stridor Effort & Inspection: normal respiratory effort Auscultation: clear to auscultation bilaterally Cardio: Rate: regular rate Rhythm: regular rhythm GI: Palpation (GI): Soft to palpation Auscultation: normal bowel sounds Skin: General skin exam: no rashes or lesions noted Neuro: General: patient oriented x3 Cognition (Neuro): normal cognition Extrem: General: Yes normal to inspection and Yes no pedal edema Results Labs CBC and Chem 7: 03/21/22 05:39 03/21/22 05:39 Labs: Laboratory Results - last 24 hr 03/20/22 03/20/22 03/20/22 18:53 18:53 18:53 MCV 93.9 MCH 32.5 MCHC 34.6 RDW 12.8 Plt Count 154 L MPV 9.0 L Immature Gran % (Auto) 0.3 Neut % (Auto) 73.8 H Lymph % (Auto) 14.1 L [place] % (Auto) 10.6 Eos % (Auto) 0.8 Baso % (Auto) 0.4 Lymph # (Auto) 1.8 [place] # (Auto) 1.3 H Eos # (Auto) 0.1 Baso # (Auto) 0.1 Abs Immat Gran (auto) 0.04 H Absolute Neuts (auto) 9.4 H Absolute Nucleated RBC 0.000 Nucleated RBC % (auto) 0.0 Smear Tech's Comments Anion Gap 17 Estim Creat Clear Calc 69.7 Estimated GFR > 60 POC Glucose Random Glucose 131 H Calcium 9.9 Magnesium 1.6 Total Bilirubin 2.0 H Direct Bilirubin 0.7 H AST 31 D ALT 32 H Alkaline Phosphatase 90 Total Creatine Kinase 885 H Troponin I High Sens Total Protein 7.3 Albumin 4.4 Lipase 59 Urine Color Urine Appearance Urine pH Ur Specific [place] Urine Protein Urine Glucose (UA) Urine Ketones Urine Blood Urine Nitrite Ur Leukocyte Esterase Influenza Type A (PCR) Influenza Type B (PCR) RSV RNA Qual (PCR) SARS-CoV-2 RNA (RT-PCR) S. pyogenes GrpA ROB 03/20/22 03/20/22 03/20/22 18:53 18:53 18:53 MCV MCH MCHC RDW Plt Count MPV Immature Gran % (Auto) Neut % (Auto) Lymph % (Auto) [place] % (Auto) Eos % (Auto) Baso % (Auto) Lymph # (Auto) [place] # (Auto) Eos # (Auto) Baso # (Auto) Abs Immat Gran (auto) Absolute Neuts (auto) Absolute Nucleated RBC Nucleated RBC % (auto) Smear Tech's Comments Anion Gap Estim Creat Clear Calc Estimated GFR POC Glucose Random Glucose Calcium Magnesium Total Bilirubin Direct Bilirubin AST ALT Alkaline Phosphatase Total Creatine Kinase Troponin I High Sens < 3.5 Total Protein Albumin Lipase Urine Color Urine Appearance Urine pH Ur Specific [place] Urine Protein Urine Glucose (UA) Urine Ketones Urine Blood Urine Nitrite Ur Leukocyte Esterase Influenza Type A (PCR) NEGATIVE Influenza Type B (PCR) NEGATIVE RSV RNA Qual (PCR) NEGATIVE SARS-CoV-2 RNA (RT-PCR) NEGATIVE S. pyogenes GrpA ROB Negative 03/20/22 03/21/22 03/21/22 18:53 04:45 05:39 MCV 96.0 MCH 32.2 MCHC 33.5 RDW 12.8 Plt Count 131 L MPV 9.5 Immature Gran % (Auto) 0.5 H Neut % (Auto) 90.9 H Lymph % (Auto) 7.1 L [place] % (Auto) 1.2 L Eos % (Auto) 0.0 Baso % (Auto) 0.3 Lymph # (Auto) 0.5 L [place] # (Auto) 0.1 Eos # (Auto) 0.0 Baso # (Auto) 0.0 Abs Immat Gran (auto) 0.04 H Absolute Neuts (auto) 6.9 Absolute Nucleated RBC 0.000 Nucleated RBC % (auto) 0.0 Smear Tech's Comments VERIFIED Anion Gap Estim Creat Clear Calc Estimated GFR POC Glucose 172 H Random Glucose Calcium Magnesium Total Bilirubin Direct Bilirubin AST ALT Alkaline Phosphatase Total Creatine Kinase Troponin I High Sens Total Protein Albumin Lipase Urine Color Yellow Urine Appearance Clear Urine pH 6.0 Ur Specific [place] <= 1.005 Urine Protein Negative Urine Glucose (UA) Negative Urine Ketones Negative Urine Blood Negative Urine Nitrite Negative Ur Leukocyte Esterase Negative Influenza Type A (PCR) Influenza Type B (PCR) RSV RNA Qual (PCR) SARS-CoV-2 RNA (RT-PCR) S. pyogenes GrpA ROB 03/21/22 05:39 MCV MCH MCHC RDW Plt Count MPV Immature Gran % (Auto) Neut % (Auto) Lymph % (Auto) [place] % (Auto) Eos % (Auto) Baso % (Auto) Lymph # (Auto) [place] # (Auto) Eos # (Auto) Baso # (Auto) Abs Immat Gran (auto) Absolute Neuts (auto) Absolute Nucleated RBC Nucleated RBC % (auto) Smear Tech's Comments Anion Gap 17 Estim Creat Clear Calc 72.7 Estimated GFR > 60 POC Glucose Random Glucose 176 H Calcium 9.4 Magnesium Total Bilirubin Direct Bilirubin AST ALT Alkaline Phosphatase Total Creatine Kinase Troponin I High Sens Total Protein Albumin Lipase Urine Color Urine Appearance Urine pH Ur Specific [place] Urine Protein Urine Glucose (UA) Urine Ketones Urine Blood Urine Nitrite Ur Leukocyte Esterase Influenza Type A (PCR) Influenza Type B (PCR) RSV RNA Qual (PCR) SARS-CoV-2 RNA (RT-PCR) S. pyogenes GrpA ROB Imaging Radiologist's Impressions: Impressions Chest X-Ray 03/20/22 19:42 IMPRESSION: No acute pulmonary pathology. Soft Tissue Neck CT 03/20/22 22:10 IMPRESSION: 1. Subtle infiltration/edema in the retropharyngeal space. No fluid collection or abnormal enhancement identified. Findings nonspecific. Correlate clinically with signs or symptoms of pharyngitis. 2. No cervical lymphadenopathy or mass. 3. Unremarkable appearance of the tongue. Assessment and Plan (1) Pharyngeal edema: Status: Acute (2) Fall: Status: Acute (3) Dysphagia: Status: Acute Plan 66-year-old female with significant past medical history as mentioned above who presents to the hospital with difficulty swallowing due to neck swelling # pharyngeal edema - this is likely secondary to traumatic fall, there is no evidence to suggest this is MANNY inhibitor associated - she has no difficulty with oxygenation, - CT of the neck shows edema in the retropharyngeal space with no fluid collection or abnormal enhancement. - at this time will start her on Decadron for the edema - monitor for respiratory distress # fall - traumatic - secondary to hip issue - PT OT prior to discharge # dysphagia - secondary to pharyngeal edema - will start with clear liquids - lozenges # diabetes - low-dose sliding scale insulin - diabetic diet - hold oral antihyperglycemics # hypothyroidism - continue levothyroxine # hypertension - at this time I do not believe that the incidence related to lisinopril will cannot 100% rule out MANNY-inhibitor angioedema - will hold lisinopril at this time - monitor BP- stable DVT prophylaxis: Lovenox Quality Stroke Does the patient have a stroke diagnosis?: No VTE Prior VTE?: No VTE Risk Level:: Medical - moderate - high VTE Device Contraindication: Treatment Not Indicated VTE Drug Contraindication: N/A - Med Ordered
[2022-03-21] MEDS: Insulin Lispro 100 UNIT/ML 3 ML VIAL SUBCUT ×4 (07:47→22:11)
[2022-03-21 07:49] LABS: Glucose, Whole Blood 157 mg/dL (60-115)
--- NOTE | 2022-03-21 07:58 | PHA.MEDREC ---
Pharmacy Consult ? Medication Reconciliation Pharmacy has completed the medication reconciliation. Reviewed med rec done by nursing
--- NOTE | 2022-03-21 09:49 | PM.EVENT ---
Event Note Date of Service: 03/22/22 Event Note: Pt seen and examined. Here with throuat pain following a fall with retropharyngeal edema on CT, likely related to fall. Will have GI assess for need for EGD however, other observe
[2022-03-21] MEDS: Metoprolol Succinate ER 25 MG TAB.ER.24H PO (09:55)
[2022-03-21] MEDS: Aspirin Enteric Coated 81 MG TABLET.DR PO (09:55)
[2022-03-21] MEDS: Cholecalciferol (Vitamin D3) 25 MCG TABLET PO (09:56)
[2022-03-21] MEDS: Levothyroxine Sodium 100 MCG TABLET PO (09:56)
[2022-03-21] MEDS: 0.9 % Sodium Chloride Flush 3 ML SYRINGE IVFLUSH ×2 (09:56→22:09)
[2022-03-21 11:49] LABS: Glucose, Whole Blood 182 mg/dL (60-115)
[2022-03-21 15:45] LABS: Glucose, Whole Blood 251 mg/dL (60-115)
[2022-03-21] MEDS: Nicotine 14 MG PATCH.TD24 TRANSDERMA (15:57)
[2022-03-21] MEDS: Fluconazole in NaCl,Iso-Osm 200 MG/100 ML PIGGYBACK 100 MG IV (15:58)
[2022-03-21] MEDS: Throat Lozenge, Medicated LOZENGE 1 LOZENGE MUCOUS MEM ×2 (18:04→22:11)
[2022-03-21 20:10] LABS: Glucose, Whole Blood 245 mg/dL (60-115)
--- NOTE | 2022-03-21 21:13 | P.CNGI_ITS ---
History of Present Illness Data of Consult Service Date: 03/21/22 Requesting physician: [facility] Primary Care Provider: Vicky Whitman MD HPI Reason for consult: odynophagia 66-year-old female with past medical history of DM, hypothyroidism, hypertension, anxiety and depression, COPD, GERD, HLD, tobacco use and CAD who I am asked to see for assessment for odynophagia. Patient has chronic hip pain and mobility issues, she was walking in the home 1- 2 d ago when she tripped and fell onto tiled floor with most of the impact on the upper chest and throat. she then vomited non bloody emesis few times, never lost consciousness but was too weak to get back up. Eventually found by family and ambulance called. She had been c/o pain and difficulty swallowing after this as well chest tenderness. she has no palpitations, no chest pain, no shortness of breath prior to the fall.?She denies any abdominal pain, no diarrhea constipation, no urinary symptoms and no lower extremity edema.? She has received 3 doses of decadron and felt this has reduced the pain sensation and swelling a lot and now she is able to take clears easily without issue but still has soem discomfort in the mid throat area. Labs: WBC count of 12.7, total bili of 2.0, which was previously slightly elev ated, direct bili of 0.7, CPK of 885, UA negative Soft tissue CT of the neck: subtle infiltrates/edema of the retropharyngeal space, with no fluid collection or abnormal enhancement identified. Review of Systems Review of Systems: Constitutional : No Weight loss, No Fever, No Chills ENT/Mouth : + sore throat, No Rhinorrhea Eyes: No Swelling, No Redness Cardiovascular : + Chest Pain, + SOB, No Edema Respiratory : No Cough, No Sputum, No Wheezing Gastrointestinal : see HPI Genitourinary : NO Dysuria, No Urinary Frequency, No Hematuria, No Urgency Musculoskeletal : + joint pain, No Myalgias, No Joint Swelling Skin : No Skin Lesions, No rash Neuro : + Weakness, No Numbness, No Dizziness, No Headache Psych : No Anxiety/Panic, No Depression Heme/Lymph: No Bruising, No Lymphadenopathy Endocrine : No Polyuria, No Polydipsia All other systems reviewed and are negative. [facility] Past Medical History Medical History Allergic rhinitis Anxiety and depression Carpal tunnel syndrome Cataract COPD (chronic obstructive pulmonary disease) Coronary artery disease GERD (gastroesophageal reflux disease) Glaucoma Goiter diffuse Franky's disease Hypercholesterolemia Hypertension Hypothyroid Obesity (BMI 30-39.9) Tobacco abuse Type 2 diabetes mellitus with hyperglycemia Family History Family History Father Myocardial infarct Maternal Grandmother Breast cancer Mother Pancreatic cancer Sister Bipolar 1 disorder Other Mental problem Surgical History Surgical History History of tubal ligation Hx of section Social History Social History Household Members: Family Housing: House Do you presently have visiting nurse or other home services: No Alcohol intake: current Alcohol intake frequency: holidays/special occasions only Patient Tobacco Use Status: Current everyday Tobacco user Tobacco use type: Cigarette Cigarettes Per Day: 4 Years Smoked: 4 cigarettes a day e-Cigarette/Vaping Use: Currently Using Advance Directives Date on File: 03/21/22 service: No Current occupational status: disabled Cognitive needs: No Hearing needs: No Vision needs: Yes Meds Allergies Allergy/AdvReac Type Severity Reaction Status Date / Time LATEX Allergy Intermediate rash Verified 02/27/22 13:32 MOLD Allergy Intermediate rash Verified 02/27/22 13:32 NONORGANIC FOOD Allergy Intermediate diarrhea Verified 02/27/22 13:32 YEAST Allergy Intermediate diarrhea Verified 02/27/22 13:32 Active Medications: Current Medications Acetaminophen (Acetaminophen 325 Mg Tablet) 650 mg PO Q6H PRN PRN Reason: Pain, Mild (Pain Scale 1-3) Albuterol Sulfate (Albuterol Sulfate 90 Mcg 8 Gm Inhaler) 2 puff INHALE Q6H PRN PRN Reason: Wheezing Aspirin (Aspirin Enteric Coated 81 Mg Tablet.) 81 mg PO DAILY [facility] Last Admin: 03/21/22 09:55 Dose: 81 mg Atorvastatin Calcium (Atorvastatin Calcium 80 Mg Tablet) 80 mg PO BEDTIME [facility] Benzocaine (Throat Lozenge, Medicated Lozenge) 1 lozenge MUCOUS MEM Q2H PRN PRN Reason: Sore Throat Last Admin: 03/21/22 18:04 Dose: 1 lozenge Dexamethasone Sodium Phosphate (Dexamethasone Sod Phosphate 4 Mg/Ml Vial) 4 mg IVPUSH Q6H [facility] Last Admin: 03/21/22 18:03 Dose: 4 mg Dextrose (Dextrose 50 % 25 Gm/50 Ml Syringe) 25 gm IVPUSH Q15M PRN; Protocol PRN Reason: per Hypoglycemia Standing Ord. Docusate Sodium (Docusate Sodium 100 Mg Capsule) 100 mg PO DAILY PRN PRN Reason: Constipation Ezetimibe (Ezetimibe 10 Mg Tablet) 10 mg PO BEDTIME [facility] Enoxaparin Sodium (Enoxaparin Sodium 40 Mg/0.4 Ml Syringe) 40 mg SUBCUT Q24H [facility] Last Admin: 03/21/22 01:19 Dose: 40 mg Fluticasone/Vilanterol (Fluticasone/Vilanterol 200/25 Blst.W.Dev) 1 puff INHALE RDAILY [facility] Last Admin: 03/21/22 17:57 Dose: Not Given Glucose (Glucose Gel 15 Gm Gel..Gram.) 15 gm PO Q15M PRN; Protocol PRN Reason: per Hypoglycemia Standing Ord. Hydrocortisone (Hydrocortisone 2.5 % Rectal Cr 30 Gm Tube) 1 appl [place] QID PRN PRN Reason: hemorrhoids Fluconazole 100 mg/ IV (Miscellaneous Supplies) 50 mls @ 50 mls/hr IV Q24H [facility] Insulin Human Lispro (Insulin Lispro 100 Unit/Ml 3 Ml Vial) 0.1 - 10 unit SUBCUT QIDACHS [facility]; Protocol Last Admin: 03/21/22 15:58 Dose: 6 unit Lactulose (Lactulose 20 Gm/30 Ml Solution) 10 gm PO DAILY PRN PRN Reason: Gastrointestinal Spasms Or Cramping Levothyroxine Sodium (Levothyroxine Sodium 100 Mcg Tablet) 100 mcg PO DAILY@0600 [facility] Last Admin: 03/21/22 09:56 Dose: 100 mcg Metoprolol Succinate (Metoprolol Succinate Er 25 Mg Tab.Er.24h) 25 mg PO DAILY [facility]; Protocol Last Admin: 03/21/22 09:55 Dose: 25 mg Nicotine (Nicotine 14 Mg Patch.Td24) 14 mg TRANSDERMA DAILY [facility] Last Admin: 03/21/22 15:57 Dose: 14 mg Nitroglycerin (Nitroglycerin 0.4 Mg Tab.Subl) 0.4 mg SUBLINGUAL Q5M PRN PRN Reason: chest pain Non-Formulary Medication (Tafluprost (Pf)) 1 drop EYE-BOTH BEDTIME [facility] Ondansetron HCl (Ondansetron Hcl 4 Mg/2 Ml Vial) 4 mg IVPUSH Q8H PRN PRN Reason: Nausea and Vomiting Sodium Chloride (0.9 % Sodium Chloride Flush 3 Ml Syringe) 3 ml IVFLUSH QSHIFT [facility] Last Admin: 03/21/22 15:59 Dose: Not Given Timolol Maleate (Timolol Maleate 0.5 % Oph Silvia 5 Ml Drbtl) 1 drop EYE-BOTH BID [facility] Last Admin: 03/21/22 17:57 Dose: Not Given Triamcinolone Acetonide (Triamcinolone Acet 0.025 % Cream 15 Gm Tube) 1 appl TOPICAL BID [facility] Vitamin D (Cholecalciferol (Vitamin D3) 25 Mcg Tablet) 25 mcg PO DAILY [facility] Last Admin: 03/21/22 09:56 Dose: 25 mcg Home Medications Medication Instructions Recorded Confirmed Last Taken Type fluocinolone 0.01 % topical 1 applic topical BID 03/23/20 03/21/22 Unknown History solution aspirin 81 mg tablet,delayed 81 mg PO DAILY 05/15/20 03/21/22 09/17/21 History release (Adult Low Dose Aspirin) betamethasone dipropionate 0.05 % See Rx Instructions .Route .COMPLEX 05/15/20 03/21/22 Unknown History topical ointment albuterol sulfate 90 mcg/actuation 2 puff inhalation Q6H PRN Wheezing 06/29/20 03/21/22 Unknown History aerosol inhaler (Proventil HFA) lactulose 10 gram/15 mL oral 15 ml PO DAILY PRN 07/12/20 03/21/22 Unknown Hi story solution Gastrointestinal Spasms Or Cramping tafluprost (PF) 0.0015 % eye drops 1 drp ophthalmic (eye) BEDTIME 09/18/20 03/21/22 Unknown History in a dropperette atorvastatin 80 mg tablet 80 mg PO BEDTIME 03/21/22 03/21/22 Unknown History ezetimibe 10 mg tablet (Zetia) 10 mg PO BEDTIME 03/21/22 03/21/22 Unknown History timolol maleate (PF) 0.5 % eye 1 drp ophthalmic (eye) BID 03/21/22 03/21/22 Unknown History drops in a dropperette Physical Exam Vital Signs: Vital Signs: Last Vital Signs Temp 98.7 F 03/21/22 20:00 Pulse 66 03/21/22 20:00 Resp 18 03/21/22 20:00 BP 121/63 03/21/22 20:00 Pulse Ox 100 03/21/22 20:00 O2 Del Method 03/21/22 20:00 BMI result Body Mass Index 30.0 EXAM: GENERAL: The patient is well developed and nontoxic. VITAL SIGNS:see workflow HEENT: Nonicteric sclerae, PERRLA, EOMI. Oropharynx clear. Moist mucous membranes. Conjunctivae appear well perfused. No thyroid mass. No crepitus. White exudates back of throat compatible with severe thrush. CHEST: Chest wall is tender. melanie ebruising upper chest. HEART: Regular rate and rhythm without murmurs. LUNGS: Clear to auscultation bilaterally. ABDOMEN: Soft, positive bowel sounds, nontender, no organomegaly.no flank tenderness SKIN: No rash, no excessive bruising, petechiae, or purpura. NEUROLOGIC: Cranial nerves II-XII intact without motor/sensory deficit. MS: sitting upright easily Psych: Appearance: grossly normal Results Labs CBC & Chem 7: 03/21/22 05:39 03/21/22 05:39 Labs: Short CBC 03/21/22 Range/Units 05:39 WBC 7.6 (4.8-10.8) X10*3/uL Hgb 12.9 (12.0-16.0) g/dl Hct 38.5 (37.0-47.0) % Plt Count 131 L (160-400) X10*3/uL BMP 03/21/22 05:39 Sodium 141 Potassium 3.9 Chloride 107 Carbon Dioxide 21 L BUN 17 H Creatinine 0.71 Calcium 9.4 Assessment and Plan (1) Dysphagia: Status: Acute Plan 1/ Odynophagia and dysphagia in setting of fall with fluid in soft tissues on CT. Now improved with decadron however clinical exam consistent with oral thrush, which she is at high risk of due to DM and sterodi inhaler use. PLAN: 1/ recommend fluconazole 100 mg for 3 weeks, keep an eye on LFT 2/ advance diet as tolerated 3/ does not need EGD at this time, if sx return or worsen then would get ba swallow first. Procedures Date of Service Date of Service: 03/21/22
[2022-03-21] MEDS: Ezetimibe 10 MG TABLET PO (22:09)
[2022-03-21] MEDS: Atorvastatin Calcium 80 MG TABLET PO (22:09)
[2022-03-22] MEDS: Enoxaparin Sodium 40 MG/0.4 ML SYRINGE SUBCUT (03:15)
[2022-03-22 03:20] VITALS: BP 122/65; PULSE 54; RESP 18; TEMP 36.4; O2SAT 98
[2022-03-22] MEDS: Levothyroxine Sodium 100 MCG TABLET PO (06:15)
[2022-03-22 07:31] VITALS: BP 148/65; PULSE 63; RESP 18; TEMP 36.3; O2SAT 96
[2022-03-22 07:42] LABS: Glucose, Whole Blood 171 mg/dL (60-115)
[2022-03-22] MEDS: dexAMETHasone sod phosphate 4 MG/ML VIAL IVPUSH (07:51)
[2022-03-22] MEDS: Nicotine 14 MG PATCH.TD24 TRANSDERMA (07:51)
[2022-03-22] MEDS: 0.9 % Sodium Chloride Flush 3 ML SYRINGE IVFLUSH ×2 (07:52→20:10)
[2022-03-22] MEDS: Cholecalciferol (Vitamin D3) 25 MCG TABLET PO (07:53)
[2022-03-22] MEDS: Metoprolol Succinate ER 25 MG TAB.ER.24H PO (07:53)
[2022-03-22] MEDS: Aspirin Enteric Coated 81 MG TABLET.DR PO (07:53)
[2022-03-22 08:06] VITALS: PULSE 60; RESP 16; O2SAT 98
[2022-03-22] MEDS: Fluticasone/Vilanterol 200/25 BLST.W.DEV 1 PUFF INHALE (08:06)
[2022-03-22] MEDS: Insulin Lispro 100 UNIT/ML 3 ML VIAL SUBCUT ×4 (09:12→20:22)
--- NOTE | 2022-03-22 09:41 | P.PNIM_ITS ---
Subjective Subjective Date of Service: 03/22/22 Interval History: Seen in f/u throat pain thrush interval history: still with pain Review of Systems throat pain no fever Physical Exam Vital Signs: Vital Signs: Last Vital Signs Temp 97.4 F 03/22/22 07:31 Pulse 60 03/22/22 08:06 Resp 16 03/22/22 08:06 BP 148/65 H 03/22/22 07:31 Pulse Ox 96 03/22/22 07:31 O2 Del Method 03/22/22 07:31 BMI result Body Mass Index 30.0 Const: Other: General: AO X 3, no acute distress Resp: CTA bilateral heent: thrush CVS: S1,S2,RRR GI: +BS, NT, no distention Skin: No rash Neuro: motor grossly intact Psych: appropriate affect Objective Data Active Medications Acetaminophen (Acetaminophen 325 Mg Tablet) 650 mg PO Q6H PRN PRN Reason: Pain, Mild (Pain Scale 1-3) Albuterol Sulfate (Albuterol Sulfate 90 Mcg 8 Gm Inhaler) 2 puff INHALE Q6H PRN PRN Reason: Wheezing Aspirin (Aspirin Enteric Coated 81 Mg Tablet.) 81 mg PO DAILY [facility] Last Admin: 03/22/22 07:53 Dose: 81 mg Documented By: MARCELLO Atorvastatin Calcium (Atorvastatin Calcium 80 Mg Tablet) 80 mg PO BEDTIME [facility] Last Admin: 03/21/22 22:09 Dose: 80 mg Documented By: NAHUM Benzocaine (Throat Lozenge, Medicated Lozenge) 1 lozenge MUCOUS MEM Q2H PRN PRN Reason: Sore Throat Last Admin: 03/21/22 22:11 Dose: 1 lozenge Documented By: NAHUM Dexamethasone Sodium Phosphate (Dexamethasone Sod Phosphate 4 Mg/Ml Vial) 4 mg IVPUSH Q6H [facility] Last Admin: 03/22/22 07:51 Dose: 4 mg Documented By: MARCELLO Dextrose (Dextrose 50 % 25 Gm/50 Ml Syringe) 25 gm IVPUSH Q15M PRN; Protocol PRN Reason: per Hypoglycemia Standing Ord. Docusate Sodium (Docusate Sodium 100 Mg Capsule) 100 mg PO DAILY PRN PRN Reason: Constipation Ezetimibe (Ezetimibe 10 Mg Tablet) 10 mg PO BEDTIME [facility] Last Admin: 03/21/22 22:09 Dose: 10 mg Documented By: NAHUM Enoxaparin Sodium (Enoxaparin Sodium 40 Mg/0.4 Ml Syringe) 40 mg SUBCUT Q24H [facility] Last Admin: 03/22/22 03:15 Dose: 40 mg Documented By: NAHUM Fluticasone/Vilanterol (Fluticasone/Vilanterol 200/25 Blst.W.Dev) 1 puff INHALE RDAILY [facility] Last Admin: 03/22/22 08:06 Dose: 1 puff Documented By: FRANK Glucose (Glucose Gel 15 Gm Gel..Gram.) 15 gm PO Q15M PRN; Protocol PRN Reason: per Hypoglycemia Standing Ord. Hydrocortisone (Hydrocortisone 2.5 % Rectal Cr 30 Gm Tube) 1 appl MO QID PRN PRN Reason: hemorrhoids Fluconazole 100 mg/ IV (Miscellaneous Supplies) 50 mls @ 50 mls/hr IV Q24H [facility] Insulin Human Lispro (Insulin Lispro 100 Unit/Ml 3 Ml Vial) 0.1 - 10 unit SUBCUT QIDACHS [facility]; Protocol Last Admin: 03/22/22 09:12 Dose: 2 unit Documented By: MARCELLO Lactulose (Lactulose 20 Gm/30 Ml Solution) 10 gm PO DAILY PRN PRN Reason: Gastrointestinal Spasms Or Cramping Levothyroxine Sodium (Levothyroxine Sodium 100 Mcg Tablet) 100 mcg PO DAILY@0600 [facility] Last Admin: 03/22/22 06:15 Dose: 100 mcg Documented By: NAHUM Metoprolol Succinate (Metoprolol Succinate Er 25 Mg Tab.Er.24h) 25 mg PO DAILY [facility]; Protocol Last Admin: 03/22/22 07:53 Dose: 25 mg Documented By: MARCELLO Nicotine (Nicotine 14 Mg Patch.Td24) 14 mg TRANSDERMA DAILY [facility] Last Admin: 03/22/22 07:51 Dose: 14 mg Documented By: MARCELLO Nitroglycerin (Nitroglycerin 0.4 Mg Tab.Subl) 0.4 mg SUBLINGUAL Q5M PRN PRN Reason: chest pain Non-Formulary Medication (Tafluprost (Pf)) 1 drop EYE-BOTH BEDTIME [facility] Ondansetron HCl (Ondansetron Hcl 4 Mg/2 Ml Vial) 4 mg IVPUSH Q8H PRN PRN Reason: Nausea and Vomiting Sodium Chloride (0.9 % Sodium Chloride Flush 3 Ml Syringe) 3 ml IVFLUSH QSHIFT [facility] Last Admin: 03/22/22 07:52 Dose: 3 ml Documented By: MARCELLO Timolol Maleate (Timolol Maleate 0.5 % Oph Silvia 5 Ml Drbtl) 1 drop EYE-BOTH BID [facility] Last Admin: 03/21/22 22:12 Dose: Not Given Documented By: NAHUM Non-Admin Reason: Med Not Available Triamcinolone Acetonide (Triamcinolone Acet 0.025 % Cream 15 Gm Tube) 1 appl TOPICAL BID [facility] Last Admin: 03/21/22 22:13 Dose: Not Given Documented By: NAHUM Non-Admin Reason: Med Not Available Vitamin D (Cholecalciferol (Vitamin D3) 25 Mcg Tablet) 25 mcg PO DAILY [facility] Last Admin: 03/22/22 07:53 Dose: 25 mcg Documented By: MARCELLO Labs CBC & Chem 7: 03/21/22 05:39 03/21/22 05:39 Labs: Laboratory Results - last 24 hr 03/21/22 03/21/22 03/21/22 11:45 15:40 20:06 POC Glucose 182 H 251 H 245 H 03/22/22 07:36 POC Glucose 171 H Assessment and Plan (1) Esophageal candidiasis: Status: Acute Plan 66-year-old female with significant past medical history as mentioned above who presents to the hospital with difficulty swallowing due to neck swelling # pharyngeal edema probably d/t thrush and not due lisinopril -gi recommends candiasis -one more day of iv then change to oral tomorrow # Dysphagia d/t above # fall - traumatic - secondary to hip issue -doing well, no need for PT at this time # diabetes - low-dose sliding scale insulin - diabetic diet - hold oral antihyperglycemics # hypothyroidism - continue levothyroxine # hypertension - at this time I do not believe that the incidence related to lisinopril will cannot 100% rule out MANNY-inhibitor angioedema - will hold lisinopril at this time - monitor BP- stable DVT prophylaxis:? Lovenox need for inaptient: esophageal candiasis, needing iv diflucan Quality Stroke Does the patient have a stroke diagnosis?: No VTE Prior VTE?: No VTE Risk Level:: Medical - moderate - high VTE Device Contraindication: Treatment Not Indicated VTE Drug Contraindication: N/A - Med Ordered
[2022-03-22 11:16] VITALS: BP 151/70; PULSE 64; RESP 20; TEMP 36.9; O2SAT 97
[2022-03-22 11:29] LABS: Glucose, Whole Blood 281 mg/dL (60-115)
[2022-03-22] MEDS: Fluconazole in NaCl,Iso-Osm 100 MG in Container,Empty 0 ML 50 MG IV (14:36)
[2022-03-22 15:54] VITALS: BP 134/63; PULSE 59; RESP 18; TEMP 37.2; O2SAT 97
[2022-03-22 15:55] LABS: Glucose, Whole Blood 182 mg/dL (60-115)
[2022-03-22 20:00] VITALS: BP 187/68; PULSE 60; RESP 18; TEMP 37.1; O2SAT 99
[2022-03-22] MEDS: Ezetimibe 10 MG TABLET PO (20:09)
[2022-03-22] MEDS: Atorvastatin Calcium 80 MG TABLET PO (20:09)
[2022-03-22 20:16] LABS: Glucose, Whole Blood 234 mg/dL (60-115)
[2022-03-22] MEDS: Throat Lozenge, Medicated LOZENGE 1 LOZENGE MUCOUS MEM (22:30)
[2022-03-23] MEDS: Levothyroxine Sodium 100 MCG TABLET PO (06:37)
[2022-03-23 07:11] VITALS: BP 167/71; PULSE 53; RESP 16; TEMP 36.5; O2SAT 97
[2022-03-23 07:12] LABS: Glucose, Whole Blood 150 mg/dL (60-115)
[2022-03-23] MEDS: Fluticasone/Vilanterol 200/25 BLST.W.DEV 1 PUFF INHALE (07:47)
[2022-03-23 07:48] VITALS: PULSE 61; RESP 18; O2SAT 100
--- NOTE | 2022-03-23 07:57 | HO.PM.IMPN ---
Subjective Subjective Date of Service: 03/23/22 Interval History: Seen in f/u throat pain thrush interval history:Still with odynophagia with liquid and solid Review of Systems throat pain no fever no sob Physical Exam Vital Signs: Vital Signs: Last Vital Signs Temp 97.7 F 03/23/22 07:11 Pulse 61 03/23/22 07:48 Resp 18 03/23/22 07:48 BP 167/71 H 03/23/22 07:11 Pulse Ox 97 03/23/22 07:11 O2 Del Method 03/23/22 07:11 BMI result Body Mass Index 30.0 Const: Other: General: AO X 3, no acute distress Resp: CTA bilateral heent: thrush noted in mouth CVS: S1,S2,RRR GI: +BS, NT, no distention Skin: No rash Neuro: motor grossly intact Psych: appropriate affect Objective Data Active Medications Acetaminophen (Acetaminophen 325 Mg Tablet) 650 mg PO Q6H PRN PRN Reason: Pain, Mild (Pain Scale 1-3) Albuterol Sulfate (Albuterol Sulfate 90 Mcg 8 Gm Inhaler) 2 puff INHALE Q6H PRN PRN Reason: Wheezing Aspirin (Aspirin Enteric Coated 81 Mg Tablet.) 81 mg PO DAILY [facility] Last Admin: 03/22/22 07:53 Dose: 81 mg Documented By: MARCELLO Atorvastatin Calcium (Atorvastatin Calcium 80 Mg Tablet) 80 mg PO BEDTIME [facility] Last Admin: 03/22/22 20:09 Dose: 80 mg Documented By: NAHUM Benzocaine (Throat Lozenge, Medicated Lozenge) 1 lozenge MUCOUS MEM Q2H PRN PRN Reason: Sore Throat Last Admin: 03/22/22 22:30 Dose: 1 lozenge Documented By: NAHUM Dextrose (Dextrose 50 % 25 Gm/50 Ml Syringe) 25 gm IVPUSH Q15M PRN; Protocol PRN Reason: per Hypoglycemia Standing Ord. Docusate Sodium (Docusate Sodium 100 Mg Capsule) 100 mg PO DAILY PRN PRN Reason: Constipation Ezetimibe (Ezetimibe 10 Mg Tablet) 10 mg PO BEDTIME [facility] Last Admin: 03/22/22 20:09 Dose: 10 mg Documented By: NAHUM Enoxaparin Sodium (Enoxaparin Sodium 40 Mg/0.4 Ml Syringe) 40 mg SUBCUT Q24H [facility] Last Admin: 03/22/22 20:24 Dose: Not Given Documented By: NAHUM Non-Admin Reason: Patient Refused Fluticasone/Vilanterol (Fluticasone/Vilanterol 200/25 Blst.W.Dev) 1 puff INHALE RDAILY [facility] Last Admin: 03/23/22 07:47 Dose: 1 puff Documented By: EMMA Glucose (Glucose Gel 15 Gm Gel..Gram.) 15 gm PO Q15M PRN; Protocol PRN Reason: per Hypoglycemia Standing Ord. Hydrocortisone (Hydrocortisone 2.5 % Rectal Cr 30 Gm Tube) 1 appl DE QID PRN PRN Reason: hemorrhoids Fluconazole 100 mg/ IV (Miscellaneous Supplies) 50 mls @ 50 mls/hr IV Q24H [facility] Last Infusion: 03/22/22 15:36 Dose: 0 mls/hr Documented By: MARCELLO Insulin Human Lispro (Insulin Lispro 100 Unit/Ml 3 Ml Vial) 0.1 - 10 unit SUBCUT QIDACHS [facility]; Protocol Last Admin: 03/23/22 07:13 Dose: Not Given Documented By: MARCELLO Non-Admin Reason: No Insulin Coverage Lactulose (Lactulose 20 Gm/30 Ml Solution) 10 gm PO DAILY PRN PRN Reason: Gastrointestinal Spasms Or Cramping Levothyroxine Sodium (Levothyroxine Sodium 100 Mcg Tablet) 100 mcg PO DAILY@0600 [facility] Last Admin: 03/23/22 06:37 Dose: 100 mcg Documented By: NAHUM Metoprolol Succinate (Metoprolol Succinate Er 25 Mg Tab.Er.24h) 25 mg PO DAILY [facility]; Protocol Last Admin: 03/22/22 07:53 Dose: 25 mg Documented By: MARCELLO Nicotine (Nicotine 14 Mg Patch.Td24) 14 mg TRANSDERMA DAILY [facility] Last Admin: 03/22/22 07:51 Dose: 14 mg Documented By: MARCELLO Nitroglycerin (Nitroglycerin 0.4 Mg Tab.Subl) 0.4 mg SUBLINGUAL Q5M PRN PRN Reason: chest pain Non-Formulary Medication (Tafluprost (Pf)) 1 drop EYE-BOTH BEDTIME [facility] Last Admin: 03/22/22 20:09 Dose: 1 drop Documented By: HO.ANTOIC Non-Form (Timolol Maleate 0.5 % Oph Silvia 5 Ml Drbtl) 1 each EYE-BOTH BID [facility] Last Admin: 03/22/22 20:11 Dose: 1 each Documented By: ANTJ CARLOS Ondansetron HCl (Ondansetron Hcl 4 Mg/2 Ml Vial) 4 mg IVPUSH Q8H PRN PRN Reason: Nausea and Vomiting Sodium Chloride (0.9 % Sodium Chloride Flush 3 Ml Syringe) 3 ml IVFLUSH QSHIFT [facility] Last Admin: 03/22/22 20:10 Dose: 3 ml Documented By: ANTJ CARLOS Triamcinolone Acetonide (Triamcinolone Acet 0.025 % Cream 15 Gm Tube) 1 appl TOPICAL BID [facility] Last Admin: 03/22/22 20:12 Dose: Not Given Documented By: ANTOIC Non-Admin Reason: Med Not Available Vitamin D (Cholecalciferol (Vitamin D3) 25 Mcg Tablet) 25 mcg PO DAILY [facility] Last Admin: 03/22/22 07:53 Dose: 25 mcg Documented By: MARCELLO Labs CBC & Chem 7: 03/21/22 05:39 03/21/22 05:39 Labs: Laboratory Results - last 24 hr 03/22/22 03/22/22 03/22/22 11:19 15:51 20:11 POC Glucose 281 H 182 H 234 H 03/23/22 07:07 POC Glucose 150 H Assessment and Plan (1) Esophageal candidiasis: Status: Acute Plan 66-year-old female with significant past medical history as mentioned above who presents to the hospital with difficulty swallowing due to neck swelling # pharyngeal edema probably d/t thrush and not due lisinopril -gi recommends diflucan D3 for esophageal candiasis -throat losenge # Dysphagia d/t above # fall - traumatic - secondary to hip issue -doing well, no need for PT at this time # diabetes - low-dose sliding scale insulin - diabetic diet -retart Metformin # hypothyroidism - continue levothyroxine # hypertension -her presentation is not consistent with MANNY related angioedema -restart Lisinopril DVT prophylaxis:? Lovenox need for inaptient: esophageal candiasis, needing iv diflucan Quality Stroke Does the patient have a stroke diagnosis?: No VTE Prior VTE?: No VTE Risk Level:: Medical - moderate - high VTE Device Contraindication: Treatment Not Indicated VTE Drug Contraindication: N/A - Med Ordered
[2022-03-23] MEDS: lisinopriL 10 MG TABLET 30 MG PO (08:57)
[2022-03-23] MEDS: Cholecalciferol (Vitamin D3) 25 MCG TABLET PO (08:57)
[2022-03-23] MEDS: Metoprolol Succinate ER 25 MG TAB.ER.24H PO (08:57)
[2022-03-23] MEDS: Aspirin Enteric Coated 81 MG TABLET.DR PO (08:57)
[2022-03-23] MEDS: metFORMIN HCl 500 MG TABLET PO ×2 (08:57→20:28)
[2022-03-23] MEDS: 0.9 % Sodium Chloride Flush 3 ML SYRINGE IVFLUSH ×2 (08:58→20:30)
[2022-03-23] MEDS: Nicotine 14 MG PATCH.TD24 TRANSDERMA (08:58)
[2022-03-23] MEDS: Lactulose 20 GM/30 ML SOLUTION 10 GM PO (09:07)
[2022-03-23 11:11] VITALS: BP 106/57; PULSE 53; RESP 20; TEMP 36.4; O2SAT 98
[2022-03-23 11:12] LABS: Glucose, Whole Blood 192 mg/dL (60-115)
[2022-03-23] MEDS: Insulin Lispro 100 UNIT/ML 3 ML VIAL SUBCUT ×3 (11:56→20:28)
[2022-03-23] MEDS: Fluconazole in NaCl,Iso-Osm 100 MG in Container,Empty 0 ML 50 MG IV (14:30)
[2022-03-23 15:55] VITALS: BP 119/53; PULSE 57; RESP 18; TEMP 37.1; O2SAT 96
[2022-03-23 16:06] LABS: Glucose, Whole Blood 183 mg/dL (60-115)
--- OUTSIDE RECORDS SUMMARY | 2022-03-23 16:11 | XMS_ITS ---
:1955 Author Organization [facility] Address [address] [place] [address] Care Team Providers Name Role Phone Ras Mccarty Unavailable Unavailable PROBLEMS Type Condition ICD9-CM [id number] Onset Condition SNOMED Cod e Code Code Dates Status Problem Preprocedural Z01.818 Active 153193 [id number] examination Problem Diverticulosis of K57.30 Active 73 6873110 colon Problem History of Z86.19 Active [id number] Clostridioides difficile infection Problem Encounter for Z12.11 Active 384928 004 screening for malignant neoplasm of colon Problem Irregular bowel R19.8 Active 4447 24602 habits ALLERGIES Substance Reaction Event Type Date Status food allergies Unknown Non Drug Allergy Jul, Active Latex gloves Unknown Non Drug Allergy Jul, Active ENCOUNTERS Encounter Location Date Diagnosis [address] September, [facility] [address] [place] [address] [facility] Outpatient [address] [facility] September, Colon cancer [place], [place] [id number] Z12.11 ; C olon polyp K63.5 ; Diverticulosis of colon K57.30 ; Interna l hemorrhoid K64.8 and External hemorrh oid K64.[address] Aug, [facility] [address] [place] [address] Jul, [facility] [address] [place] [address] Jul, Encounte r for screening for [facility] [address] [place] malignant neoplasm of colon Z12.11 ; Irregul ar bowel habits R19.8 and Preprocedural ex amination Z01.[address] [place] [address] Jan, [facility] [address] [place] [address] [place] [address] Jul, [facility] [address] [place] [address] [place] [address] May, Irregula r bowel habits [facility] [address] [place] R19.8 ; En counter for screening for ma lignant neoplasm of colo n Z12.11 and History of Clostridioides d ifficile infection Z86.19 [facility] Outpatient [address] [facility] Aug, [place] [phone] [facility] ER [address] [facility] 13 Jul, 2008 [place] [id number] IMMUNIZATIONS Vaccine Route Administration Date Status Influenza Unknown Mar 06, 2021 Administered Influenza Unknown Mar 02, 2019 Administered SOCIAL HISTORY Qualifiers Date Current Smoker REASON FOR REFERRAL FUNCTIONAL STATUS PLAN OF CARE Activity Details Future/Pending Procedure COLONOSCOPY [id number] Future/Pending Procedure COLONOSCOPY [id number] VITAL SIGNS Weight 164 lbs 2021-08-07 Weight 175 lbs 2019-06-08 Height 61 in 2021-08-07 Height 61 in 2019-06-08 BMI 30.98 kg/m2 2021-08-07 BMI 33.06 kg/m2 2019-06-08 Heart Rate 64 /min 2019-06-08 Temperature 97.7 degrees Fahrenheit 2021-08-07 Blood pressure systolic 000 mm Hg 2021-08-07 Blood pressure diastolic 00 mm Hg 2021-08-07 MEDICATIONS Medication Instructions Dosage Frequency Start End Duration Statu s Date Date Atorvastatin Orally Once a 1 tablet 24h 30 day(s) Ac tive Calcium 80 MG day Oxybutynin Orally Once a 1 tablet 24h 30 day(s) Acti ve Chloride ER 10 day MG Nitroglycerin Sublingual prn as directed Active 0.4 MG Lisinopril 30 MG Orally Once a 1 tablet 24h Active day Metoprolol Orally Once a 1 capsule 24h 30 day(s) Act chaparro Succinate 25 MG day metFORMIN HCl ER Orally twice a 1 tablet with 12h Active 500 MG day evening meal Levothyroxine Orally Once a 1 tablet in 24h 30 day(s ) Active Sodium 100 MCG day the morning on an empty stomach Estradiol Active MiraLax (colon Orally begin at 1 238Gm bottle Jul, 1 day Active prep) 17 5:00 p.m. the mixed with 2021 GM/SCOOP day before the Gatorade or procedure Crystal Light Breo Ellipta Inhalation Once 1 puff 24h Act chaparro 200-25 MCG/INH a day Aspir-Low 81 MG Orally Once a 1 tablet 24h 30 day(s) Active day Ezetimibe 10 MG Orally Once a 1 tablet 24h 30 day(s) Active day Vitamin D3 25 Orally Once a 1 capsule 24h 30 day(s) Active MCG (1000 UT) day Timolol Maleate Ophthalmic Once 1 drop into 24h Active 0.5 % a day affected eye Lactulose 10 GM Orally Once a 1 packet 24h 30 day(s) Active day Proventil HFA Inhalation 1 puff as 4h Activ e 108 (90 Base) every 4 hrs needed MCG/ACT Zioptan 0.0015 % Ophthalmic once as directed 24h Active a day Betamethasone Externally Once 1 application 24h Active Dipropionate a day 0.05 % Dulcolax (colon Orally two take at 3:00 Jul, 1 day Active prep) 5 MG tablets twice a p.m and 2021 day for one day 7:00p.m. PROCEDURES Procedure Date Ordered Result Body Site BP SCR PRFRM RCMDD DEFIND SCR INTVL Jun 08, 2019 Pt scrn tbco and id as user August 07, 2021 BP SCR NOT PRFRM REC REASON NOS August 07, 2021 PT TOBACCO SCREEN RCVD TLK Jun 08, 2019 DOC MEDS VERIFIED W/PT OR RE August 07, 2021 DOC MEDS VERIFIED W/PT OR RE Jun 08, 2019 COLORECTAL CA SCREEN DOC REV Jun 08, 2019 COLORECTAL CA SCREEN DOC REV August 07, 2021 LESION REMOVAL COLONOSCOPY September 18, 2021 RESULTS Name Result Date Reference Range Glucose, Whole Blood 2021-09-18 Glucose, Whole Blood 140 60-115 Pathology 2021-09-18 STOOL WBC 2019-06-14 STOOL WBC NEGATIVE NEGATIVE C DIFFICILE RFLX PCR 2019-06-14 C DIFF GDH AG NEGATIVE NEGATIVE CDIFF TOXIN NEGATIVE NEGATIVE C DIFF INTERPRETATION SEE NOTE REASON FOR VISIT results of bioipsies, screening, cardiology clearance, stress test , Patient presents today for a screening colonoscopy, screening, Cancel procedure, screening, FYI, Patient presents today for recall colonoscopy Insurance Providers [facility]1983 Health Member Patient Patient Patient Patient Patient Subscriber Subscriber Subscriber Group Insurance Plan Plan Plan Plan ID Relationship Address Phone Name Date of ID Name Date of No Type Insurance Insurance Insurance Coverage to Subscriber Address Phone Name Dates [employer] [phone] [employer] [facility] [id number] [facility] [address] [facility] [phone]
--- OUTSIDE RECORDS SUMMARY | 2022-03-23 16:11 | XMS_ITS | Continuity of Care Document ---
:1955 Author Organization [facility] Address [address] [place] [id number] Care Team Providers Name Role Phone Po Vicky BROCK Primary Care Physician Encounter [facility] Date(s): 06/30/19 - 07/01/[address] [address]- [facility] Discharge Disposition: A-D/C Home Attending Physician: Aristides Michael MD Admitting Physician: Denise Elaine MD Referring Physician: Not on Staff, Referring MD Allergies, Adverse Reactions, Alerts Substance Reaction Severity Status Trusopt H/O: eczema Active Latex Active Travatan FH: Eczema Active Immunizations Not Given Vaccine Date Status Refusal Reason pneumococcal 23-valent vaccine 07/01/19 Not Given P atient Refuses Medications Aspirin Tablet 81 mg, By Mouth, Daily, Maintenance, 07/05/15 11:16:52 Start Date: 07/05/15 Status: OrderedAtorvastatin = 80 mg, By Mouth, Daily at bedtime, 0 Refills, Maintenance, 07/20/15 16:39:48 Start Date: 07/20/15 Status: OrderedBreo Ellipta 200 mcg-25 mcg/inh inhalation powder 1 puffs, Inhalation, Daily, 0 Refills, Maintenance, 06/30/19 21:28:00 EST, Powder Start Date: 06/30/19 Status: Orderedezetimibe 10 mg oral tablet 1 tablet = 10 mg, By Mouth, Daily, # 30 tablet, 0 Refills, Maintenance, 06/30/19 21:26:00 EST, Tablet Start Date: 06/30/19 Status: Orderedlevothyroxine 0.1 mg oral tablet 1 tablet = 100 mcg, By Mouth, Daily, # 30 tablet, 0 Refills, Maintenance, 06/30/19 22:03:00 EST, Tablet Start Date: 06/30/19 Status: Orderedlisinopril 40 mg oral tablet 1 tablet = 40 mg, By Mouth, Daily, # 30 tablet, 0 Refills, Maintenance, 07/04/15 10:26:41, Tablet Start Date: 07/04/15 Status: OrderedMetoprolol Succinate ER 25 mg oral tablet, extended release 1 tablet = 25 mg, By Mouth, Daily, # 30 tablet, 0 Refills, Maintenance, 07/04/15 10:39:35, ER Tablet Start Date: 07/04/15 Status: Orderednitroglycerin 0.4 mg sublingual tablet 1 tablet = 0.4 mg, Sublingual, Every 5 minutes, PRN for chest pain, # 100 tablet, 0 Refills, Maintenance, 06/30/19 21:25:00 EST, Tablet Start Date: 06/30/19 Status: OrderedProventil HFA 90 mcg/inh inhalation aerosol with adapter 1, puffs, Inhalation, 4 times a day, PRN, # 25 Gm, Refills 0, Maintenance, 06/30/19 21:29:00 EST, Aerosol Start Date: 06/30/19 Status: Orderedtimolol maleate 0.25% ophthalmic solution 1 drops, Eyes, Both, 2 times a day, # 5 mL, 0 Refills, Maintenance, 06/30/19 21:30:00 EST, Solution Start Date: 06/30/19 Status: Orderedvenlafaxine 75 mg oral capsule, extended release 1 capsule = 75 mg, By Mouth, Daily, # 30 capsule, 0 Refills, Maintenance, 06/30/19 22:20:00 EST, ER Capsule Start Date: 06/30/19 Status: OrderedZioptan 0.0015% ophthalmic solution 1 drops, Eyes, Both, Daily in PM, # 3 mL, 0 Refills, Maintenance, 06/30/19 21:30:00 EST, Solution Start Date: 06/30/19 Status: Ordered Results Radiology Reports Exam Date Time Procedure Performing Provider Status 06/30/19 5:52 PM Chest 2 Views Frontal and Lat Debra Nielson; Au th (Verified) Notes:(Chest 2 Views Frontal and Lat) Reason For Exam: syncope;Other:RESULT: Chest 2 Views Frontal and Lat Chest 2 Views Frontal and Lat Reason: Other:; syncope; Clinical Question(s): CHF; Hx of Present Illness: pt was at dentist office and attempting to leave to go home and while sitting on bench outside became lightheaded and at one point passed out per son pt's eyes rolled back briefly and teeth clenched. COMPARISON: None. FINDINGS: LINES AND TUBES: None. LUNGS AND PLEURA: Clear lungs. Normal pulmonary vascularity. No pleural effusion. No pneumothorax. HEART, MEDIASTINUM AND SEGUNDO: Heart is at the upper limits of normal for size. Normal mediastinal and hilar contour. BONES AND SOFT TISSUES: No acute abnormality. Moderate disc space narrowing in the thoracic spine. IMPRESSION: No acute cardiopulmonary pathology. WSN: [id number] Dictated By: Donald Barron MD Dictated Date/Time: 06/30/19 5:53 pm Reviewed By: Donald Barron MD Signed By: Donald Barron MD Signed Date/Time: 06/30/19 5:53 pm Transcribed By: SAGRARIO Transcribed Date/Time: 06/30/19 5:53 pm Vital Signs Most recent to oldest 1 2 3 [Reference Range]: Height 155 cm 155 cm 155 cm (07/01/19 11:21 AM) (07/01/19 8:53 AM) (07/01/19 6: 56 AM) Weight 78.9 kg 78.9 kg 79 kg (06/30/19 9:25 PM) (06/30/19 9:14 PM) (06/30/19 4:1 1 PM) Oxygen Saturation [94-100 97 % 99 % 97 % %] (07/01/19 11:21 AM) (07/01/19 6:56 AM) (07/01/19 5: 15 AM) Pulse Rate [55-90 bpm] 64 bpm 62 bpm 57 bpm (07/01/19 11:21 AM) (07/01/19 8:53 AM) (07/01/19 6: 56 AM) Body Mass Index 32.84 32.84 [18.5-24.99] *>HHI* *>HHI* (06/30/19 9:25 PM) (06/30/19 9:14 PM) Blood Pressure 164/75 mm Hg 147/61 mm Hg 147/61 mm Hg [90-138/55-84 mm Hg] *H* *H* *H* (07/01/19 11:21 AM) (07/01/19 8:53 AM) (07/01/19 8: 53 AM) Respiratory Rate [16-30 20 br/min 18 br/min 21 br/mi n br/min] (07/01/19 11:21 AM) (07/01/19 6:56 AM) (07/01/19 5: 15 AM) Temperature [96.8-100.4 97.5 DegF 97.8 DegF 97.7 Deg F DegF] (07/01/19 11:21 AM) (07/01/19 6:56 AM) (07/01/19 5: 15 AM) Mode of Delivery (Oxygen) Room air Room air Room a ir (07/01/19 11:21 AM) (07/01/19 6:56 AM) (07/01/19 5: 15 AM) Blood pressure sites Arm, left Arm, left Arm, right (07/01/19 11:21 AM) (07/01/19 6:56 AM) (07/01/19 5: 15 AM) Temperature Route Oral Oral Oral (07/01/19 11:21 AM) (07/01/19 6:56 AM) (07/01/19 5: 15 AM) Dry Weight 78.9 kg (06/30/19 9:14 PM) Weight Obtained Via Standing scale Patient/family stated (06/30/19 9:25 PM) (06/30/19 4:11 PM) Social History Social History Type Response Smoking Status Current every day smoker; To bacco user in household: Yes; Type: Cigarettes; Previous treatment: Hypnosis; Previous treatment: Medications; Interested in cessation: Yes; Other: Prescribed 21mg patch and 4mg gum. Will pick quit date within 1 week with calvin ent; Tobacco use times per day: 4-9 cigs/day; Started at age: 16; Cessation attempts: 4; entered on: 07/20/15 Sex
[2022-03-23 19:35] VITALS: BP 135/60; PULSE 59; RESP 18; TEMP 37.2; O2SAT 98
[2022-03-23 19:42] LABS: Glucose, Whole Blood 184 mg/dL (60-115)
[2022-03-23] MEDS: Atorvastatin Calcium 80 MG TABLET PO (20:28)
[2022-03-23] MEDS: Ezetimibe 10 MG TABLET PO (20:28)
[2022-03-24] VITALS: BP 111/58; PULSE 51; RESP 15; TEMP 36.1; O2SAT 98
--- NOTE | 2022-03-24 01:43 | PC.NURSE ---
Patient deemed high fall risk due to fall at home. Educated patient as to why she is high fall, still refusing high fall risk protocols. Gait assessed, patient stable. Patient verbalized understanding to use call martinez if needing help.
[2022-03-24] MEDS: Hydrocortisone 2.5 % Rectal Cr 30 GM TUBE 1 APPL PR (05:20)
[2022-03-24] MEDS: Levothyroxine Sodium 100 MCG TABLET PO (05:20)
[2022-03-24] MEDS: Acetaminophen 325 MG TABLET 650 MG PO (05:23)
[2022-03-24 07:08] LABS: Glucose, Whole Blood 105 mg/dL (60-115)
[2022-03-24 07:15] VITALS: BP 119/53; PULSE 59; RESP 18; TEMP 37; O2SAT 97
[2022-03-24] MEDS: Fluticasone/Vilanterol 200/25 BLST.W.DEV 1 PUFF INHALE (07:40)
[2022-03-24 07:42] VITALS: PULSE 59; RESP 18; O2SAT 97
[2022-03-24] MEDS: Aspirin Enteric Coated 81 MG TABLET.DR PO (08:59)
[2022-03-24] MEDS: metFORMIN HCl 500 MG TABLET PO (09:00)
[2022-03-24] MEDS: lisinopriL 10 MG TABLET 30 MG PO (09:00)
[2022-03-24] MEDS: Metoprolol Succinate ER 25 MG TAB.ER.24H PO (09:00)
[2022-03-24] MEDS: Cholecalciferol (Vitamin D3) 25 MCG TABLET PO (09:00)
[2022-03-24] MEDS: Nicotine 14 MG PATCH.TD24 TRANSDERMA (09:01)
[2022-03-24] MEDS: 0.9 % Sodium Chloride Flush 3 ML SYRINGE IVFLUSH (09:02)
--- NOTE | 2022-03-24 09:46 | P.DS_ITS ---
DS: Providers Provider Date of Service: 03/24/22 Date of admission: 03/21/22 00:50 Primary care physician: Vicky Whitman MD Consults: 03/21/22 09:51 Consult to Gastroenterology Routine Consulting Provider: Bere Pedersen Reason for consultation: throat pain and swelling Has provider been notified: No DS: Diagnosis Discharge Diagnosis (1) Esophageal candidiasis: Status: Acute DS: Summary Hospital Course Hospital Course: History of presenting illness Date of Service: 03/21/22 Chief Complaint: throat pain 66-year-old female with past medical history diabetes, hypothyroidism, hypertension, anxiety and depression, COPD, GERD, HLD, CAD status post stent, who presents to the hospital with complaints of difficulty swallowing after having a fall the day prior.? Patient reports that she has been having difficulty with left hip pain, currently being evaluated for possible surgical intervention, she reports as a result he has difficulty walking around her house and has been having fall due to the pain.? She had a mechanical fall yesterday after she tripped, she fell forward on her face and chest, she has significant tenderness in the chest area as well as in her throat, she tried to brace herself with her hand but was not successful.? She reports that after falling she had multiple episodes of vomiting, she then had difficulty getting up because she had nothing to hold on to to brace herself.? Her son found her on the floor. She reports no loss of consciousness, no palpitations, no chest pain, no shortness of breath prior to the fall.? She reports that about an hour after her son found her she started having difficulty swallowing.? She reports no difficulty with breathing, no wheezing. Reports no swelling around her tongue or lips. She denies any abdominal pain, no diarrhea constipation, no urinary symptoms and no lower extremity edema.? On arrival to the ED patient hemodynamically stable with no significant abnormal vitals Labs are significant for WBC count of 12.7, total bili of 2.0, which was previously slightly elevated, direct bili of 0.7, CPK of 885, UA negative Soft tissue CT of the neck showed subtle infiltrates/edema and the retropharyngeal space, with no fluid collection or abnormal enhancement identified. Hospital course 66-year-old female with significant past medical history as mentioned above presented to the hospital after mechanical fall and noted to have difficulty swallowing and chest discomfort, CT of the neck showed subtle infiltrates and edema with no fluid collection or abnormal enhancement, patient admitted to [facility] with a diagnosis of pharyngeal edema. # pharyngeal edema probably d/t thrush and not due lisinopril, patient seen by Dr. Guzman from Gastroenterology patient was noted to have white patches at the back of the throat and diagnosed to have oral thrush therefore started on IV Diflucan, GI recommend 3 weeks of Diflucan and if symptoms persist then recommend upper endoscopy but since patient symptoms are getting better tolerating regular diet therefore she is being discharged home on by mouth Diflucan for 18 more days she is recommended to do saltwater gargles, rinse mouth after using steroid inhaler and to use throat lozenges as needed, will recommend to check LFTs in 1 week # Dysphagia d/t above improved # mechanical fall due to hip issues, ambulating fine recommend outpatient orthopedic follow-up # diabetes is stable blood sugars recommend to follow diabetic diet and home medications # hypothyroidism- continue levothyroxine # hypertension continue home medication lisinopril and metoprolol, her presentation was not consistent with Patrick related angioedema Time Spent with Patient Time attestation: Total time spent providing and/or coordinating discharge services: Discharge coordination time: Greater than 30 minutes Quality: Safe Use of Opioids Does Pt have an Active Cancer Diagnosis on the Problem List?: No Quality: Stroke Does the patient have a stroke diagnosis?: No Physical Exam Vital Signs: Vital Signs: Last Vital Signs Temp 98.6 F 03/24/22 07:15 Pulse 59 03/24/22 07:42 Resp 18 03/24/22 07:42 BP 119/53 L 03/24/22 07:15 Pulse Ox 97 03/24/22 07:15 O2 Del Method 03/24/22 07:15 BMI result Body Mass Index 30.0 Const: Other: General awake alert x3, in no acute distress. Oral mucosa moist, tongue smooth no white patches Neck is supple no JVD. CVS regular rate rhythm, Respiratory lungs clear to auscultation, no respiratory distress, no wheeze, no rhonchi. Gastrointestinal abdomen soft, nontender, bowel sounds audible, no guarding , no rigidity. Extremities no edema. Neuro nonfocal Skin no rash DS: Data Data Completed and Pending Labs on day of discharge: Laboratory Results - last 24 hr 03/23/22 03/23/22 03/23/22 11:08 15:58 19:37 POC Glucose 192 H 183 H 184 H 03/24/22 07:04 POC Glucose 105 Discharge Plan Discharge Anticipated Discharge Date/Time: 03/24/22 09:38 Patient Disposition: Home, Self-Care Discharge Diagnosis: Odynophagia/pharyngeal edema Oral thrush Fall Diabetes type 2 Referrals: Po,Vicky Augustine MD [Primary Care Provider] - 1 Week Discharge Medications: Continued levothyroxine 100 mcg tablet 100 mcg PO DAILY Qty: 90 3RF nitroglycerin 0.4 mg tablet, sublingual 0.4 mg sublingual Q5M PRN (Reason: chest pain) 30 Days Qty: 25 1RF Rx Instructions: Take one tablet under tongue as needed for chest pains, may repeat x 2 five minutes apart - no more that 3 doses per episode metoprolol succinate 25 mg tablet extended release 24 hr 25 mg PO DAILY Qty: 90 2RF Breo Ellipta 200-25 mcg/dose blister with device 1 ea PO DAILY Qty: 180 0RF cholecalciferol (vitamin D3) 25 mcg (1,000 unit) tablet 25 mcg PO DAILY Qty: 90 3RF atorvastatin 80 mg tablet 80 mg PO BEDTIME ezetimibe [Zetia] 10 mg tablet 10 mg PO BEDTIME timolol maleate (PF) 0.5 % dropperette 1 drp ophthalmic (eye) BID lactulose 10 gram/15 mL solution 15 ml PO DAILY PRN (Reason: Gastrointestinal Spasms Or Cramping) lisinopril 30 mg tablet 30 mg PO DAILY 90 Days Qty: 90 2RF fluocinolone 0.01 % solution 1 applic topical BID albuterol sulfate [Proventil HFA] 90 mcg/actuation HFA aerosol inhaler 2 puff inhalation Q6H PRN (Reason: Wheezing) metformin 500 mg tablet 500 mg PO BID 30 Days Qty: 180 2RF hydrocortisone [Proctosol HC] 2.5 % cream with perineal applicator 1 appl PA BID-QID PRN (Reason: hemorrhoids) Qty: 30 1RF betamethasone dipropionate 0.05 % ointment See Rx Instructions .ROUTE .COMPLEX Rx Instructions: apply to hands twice daily aspirin [Adult Low Dose Aspirin] 81 mg tablet,delayed release (DR/EC) 81 mg PO DAILY Zioptan (PF) 0.0015 % dropperette 1 drp ophthalmic (eye) BEDTIME Discharge Orders: Discharge Order (Routine); Ordered 03/24/22 Ordered By: Carlene Reveles Diet: Diabetic diet Activity on Discharge: As tolerated Stand Alone Forms: Patient Portal Discharge page Care Plan Goals: Pharyngeal edema/dysphagia take Diflucan by mouth for 18 more days /rinse mouth after using steroid inhaler to salt water gargles and use lozenges as needed Take all home medications as before Health Concerns: As above Plan of Treatment: Outpatient follow-up with Dr. Whitman and 7-10 days and outpatient follow-up with mobile equipment servicer Dr. Pedersen if symptoms persist or with continued difficulty swallowing Assessment: As per discharge summary
[2022-03-24 10:49] VITALS: BP 118/83; PULSE 70; RESP 18; TEMP 35.9; O2SAT 97
[2022-03-24 10:59] LABS: Glucose, Whole Blood 182 mg/dL (60-115)
[2022-03-24] MEDS: Insulin Lispro 100 UNIT/ML 3 ML VIAL SUBCUT (11:47)
--- NOTE | 2022-03-24 11:52 | MHC.CM.PN ---
DP discharge today to home, with resumption of [facility] services. Transportation has been booked with the [facility].
[2022-03-24] MEDS: Throat Lozenge, Medicated LOZENGE 1 LOZENGE MUCOUS MEM (13:36)
== END 2022-03-24 13:50 | disposition home or self-care (01) | DRG 370 ==
LOC: HO.ED 03-21 00:33 → HO.EDOVER 03-21 04:44 → HO.IMC 03-21 07:48 → HO.EDOVER 03-23 16:10 → HO.IMC 03-23 16:10
PROVIDERS: Internal Medicine; Nurse Practitioner Family; Admitting Provider Internal Medicine; Emergency Provider Emergency Medicine; PCP Internal Medicine; Visit Provider Hospitalist
DX: B37.81 Candidal esophagitis (principal); J39.2 Other diseases of pharynx; E06.3 Autoimmune thyroiditis; E78.5 Hyperlipidemia, unspecified; I25.10 Atherosclerotic heart disease of native coronary artery without angina pectoris; I10 Essential (primary) hypertension; E11.9 Type 2 diabetes mellitus without complications; F17.210 Nicotine dependence, cigarettes, uncomplicated; Z71.6 Tobacco abuse counseling; Z91.040 Latex allergy status; Z91.81 History of falling; Z79.82 Long term (current) use of aspirin; Z79.84 Long term (current) use of oral hypoglycemic drugs; Z79.890 Hormone replacement therapy; Z79.899 Other long term (current) drug therapy
CPT/HCPCS: 0241U; 36415; 70491; 71046; 80048; 80053; 81003; 82248; 82550; 82947; 83690; 83735; 84484; 85025; 87651; 93005; 94640; 99285; J1100; J1200; J1450; J1650; Q9967

== ENCOUNTER 2022-03-26 12:37 | Outpatient (REF) | payer OTHER, SELFPAY ==
[2022-03-26 13:34] LABS: Alanine Aminotransferase 56 U/L (0-31); Albumin Level 4.1 g/dL (3.5-5.0); Alkaline Phosphatase 82 U/L (39-117); Aspartate Amino Transferase 18 U/L (5-31); Bilirubin Direct 0.4 mg/dL (0.0-0.5); Bilirubin Total 0.9 mg/dL (0.0-1.0); Total Protein 6.7 g/dL (6.5-8.0)
== END 2022-03-26 12:38 | disposition home or self-care (01) ==
LOC: HO.LAB 12:37
PROVIDERS: PCP Internal Medicine; Visit Provider Hospitalist
DX: B37.81 Candidal esophagitis (principal)
CPT/HCPCS: 36415; 80076

== ENCOUNTER 2022-04-04 10:36 | Outpatient (REF) | payer OTHER, SELFPAY ==
[2022-04-04 12:54] LABS: Alanine Aminotransferase 27 U/L (0-31); Alkaline Phosphatase 82 U/L (39-117); Aspartate Amino Transferase 21 U/L (5-31); Bilirubin Direct 0.2 mg/dL (0.0-0.5); Bilirubin Total 0.5 mg/dL (0.0-1.0); Total Protein 6.9 g/dL (6.5-8.0)
[2022-04-04 13:03] LABS: Albumin Level 4.1 g/dL (3.5-5.0)
== END 2022-04-04 10:37 | disposition home or self-care (01) ==
LOC: HO.LAB 10:36
PROVIDERS: PCP Internal Medicine; Visit Provider Nurse Practitioner Family
DX: R79.89 Other specified abnormal findings of blood chemistry (principal)
CPT/HCPCS: 36415; 80076

== ENCOUNTER → 2022-06-30 12:18 | Outpatient (BNVA) | payer OTHER, SELFPAY | PROVIDERS: PCP Internal Medicine; Referring Provider Internal Medicine; Visit Provider Internal Medicine Cardiovascular Disease | DX: J43.9 Emphysema, unspecified (principal); J30.9 Allergic rhinitis, unspecified; B37.0 Candidal stomatitis; Z72.0 Tobacco use; I25.10 Atherosclerotic heart disease of native coronary artery without angina pectoris; I10 Essential (primary) hypertension | CPT/HCPCS: 99212 ==

== ENCOUNTER → 2022-08-26 10:58 | Outpatient (BNVA) | payer OTHER, SELFPAY | PROVIDERS: PCP Internal Medicine; Visit Provider Internal Medicine | DX: Z01.419 Encounter for gynecological examination (general) (routine) without abnormal findings (principal); J43.9 Emphysema, unspecified; J30.9 Allergic rhinitis, unspecified; B37.0 Candidal stomatitis | CPT/HCPCS: 99212 ==

== ENCOUNTER → 2022-10-29 13:16 | Outpatient (BNVA) | payer OTHER, SELFPAY | PROVIDERS: PCP Internal Medicine; Visit Provider Nurse Practitioner Family | DX: N34.2 Other urethritis (principal); N39.0 Urinary tract infection, site not specified; R32 Unspecified urinary incontinence; R39.15 Urgency of urination; R35.0 Frequency of micturition | CPT/HCPCS: 99212 ==

== ENCOUNTER 2022-11-19 10:18 | Outpatient (REF) | payer OTHER, SELFPAY | END 2022-11-19 10:19 | disposition home or self-care (01) | LOC: HO.LAB 10:18 | PROVIDERS: Visit Provider Nurse Practitioner Family | DX: N39.0 Urinary tract infection, site not specified (principal); R35.0 Frequency of micturition | CPT/HCPCS: 87086; 87088; 87186 ==

== ENCOUNTER 2022-12-04 09:48 | Outpatient (REF) | payer OTHER, SELFPAY | END 2022-12-04 09:49 | disposition home or self-care (01) | LOC: HO.MAMMO 09:48 | PROVIDERS: PCP Internal Medicine; Visit Provider Internal Medicine | DX: Z13.89 Encounter for screening for other disorder (principal) ==

== ENCOUNTER 2022-12-04 09:54 | Outpatient (REF) | payer OTHER, SELFPAY ==
--- NOTE | ~2022-12-04 | US_ITS ---
EXAMINATION: US RETROPERITONEAL COMPLETE (RENAL) CLINICAL INFORMATION: Unspecified urinary incontinence. COMPARISON: Renal ultrasound 03/27/2020. Ultrasound abdomen 06/29/2008. TECHNIQUE: Real-time imaging of the kidneys and bladder. Limited visualization due to bowel gas and body habitus. FINDINGS: RIGHT KIDNEY: 11.2 x 3.9 x 4.6 cm (SAG x AP x TRV). No hydronephrosis. No renal calculi. Limited visualization. LEFT KIDNEY: 12.8 x 4.0 x 5.4 cm (SAG x AP x TRV). No hydronephrosis. No renal calculi. Limited visualization. BLADDER: Partially distended, limiting evaluation. Bilateral ureteral jets are demonstrated. Prevoid bladder volume is 161 mL. Postvoid bladder volume is 62 mL. US/US retroperitoneal comp IMPRESSION: No hydronephrosis. No renal calculi. Limited visualization. Postvoid bladder volume is 62 mL.
== END 2022-12-04 09:55 | disposition home or self-care (01) ==
LOC: HO.HMGCX 09:54
PROVIDERS: PCP Internal Medicine; Visit Provider Nurse Practitioner Family
DX: R32 Unspecified urinary incontinence (principal); N39.0 Urinary tract infection, site not specified
CPT/HCPCS: 76770; 87086

== ENCOUNTER 2022-12-15 10:50 | Outpatient (AMB) | payer OTHER, SELFPAY ==
[2022-12-15 11:08] VITALS: BP 132/68; PULSE 62; O2SAT 99; BMI 31.4
--- NOTE | 2022-12-15 11:08 | A.OFFPC_ITS ---
Vital Signs 12/15/22 11:08 Height 5 ft 1 in Weight 166 lb BMI 31.4 BP 132/68 Blood Pressure Location Lt brachial Position Sitting Pulse 62 Pulse Source Pulse Oximeter Temp Source Skin Pulse Oximetry (%) 99 Oxygen Delivery Method Room Air Intake Visit Reasons: DM Allergies LATEX Allergy (Intermediate, Verified 12/15/22 11:10) rash MOLD Allergy (Intermediate, Verified 12/15/22 11:10) rash NONORGANIC FOOD Allergy (Intermediate, Verified 12/15/22 11:10) diarrhea Yeast Allergy (Intermediate, Verified 12/15/22 11:10) Diarrhea Tobacco use date assessed: 09/08/22 Fall risk assessment: No Falls in past year Last assessed Fall Risk: 12/15/22 HPI DM HPI Details 67-year-old obese female smoker with multiple medical problems diabetes mellitus coronary artery disease COPD hypercholesterolemia hypothyroidism hypertension GERD generalized anxiety disorder come in for follow-up. Last seen in August 2022 had a boil on the axilla. Patient is here for follow-up. Colonoscopy is up-to-date mammogram is due. Patient had recurrent UTI being seen by urology and started on Estrace cream as well as oxybutynin 10 mg ultrasound of the kidneys done revealing negative results. complains of problem with pads but better now - [facility] saw also for UTI - placed on bactrim 3 days-but urology states not enough. went to walk in , antibiotic sent but not any bett er. cleared with the patient the use of oxybutinin for urge incontinence. [facility] Medical History Allergic rhinitis Anxiety and depression Carpal tunnel syndrome Cataract COPD (chronic obstructive pulmonary disease) Coronary artery disease GERD (gastroesophageal reflux disease) Glaucoma Goiter diffuse Franky's disease Hypercholesterolemia Hypertension Hypothyroid Obesity (BMI 30-39.9) Thrush, oral Tobacco abuse Type 2 diabetes mellitus with hyperglycemia Surgical History History of tubal ligation Hx of section Family History Father Myocardial infarct Maternal Grandmother Breast cancer Mother Pancreatic cancer Sister Bipolar 1 disorder Other Mental problem Social History Household Members: Family Housing: House Do you presently have visiting nurse or other home services: No Alcohol intake: current Alcohol intake frequency: holidays/special occasions only Patient Tobacco Use Status: Current everyday Tobacco user Tobacco use type: Cigarette Cigarettes Per Day: 4 Years Smoked: 4 cigarettes a day Packs per year/per ci.00 e-Cigarette/Vaping Use: Currently Using Advance Directives Date on File: 03/21/22 service: No Current occupational status: disabled Cognitive needs: No Hearing needs: No Vision needs: Yes Questionnaire Thrive Questionnaire Date Thrive assessed: 06/06/22 AUDIT C Alcohol Use Questionnaire (AUDIT-C) 1. How often do you have a drink containing alcohol?: Never 2. How many drinks containing alcohol do you have on a typical day when you are drinking?: 1 or 2 3. How often do you have six or more drinks on one occasion?: Never Total Score: 0 RYLAN-7 AMB Questionnaire RYLAN-7 Date RYLAN - 7 assessed: 06/06/22 Source: Developed by Drs. Ras Asif, Kim Jones, Dyllan Norris and colleagues, with an educational kosta from [employer] Physical exam (Primary Care) Vital Signs: Last Vital Signs Pulse 62 12/15/22 11:08 BP 132/68 12/15/22 11:08 Pulse Ox 99 12/15/22 11:08 Oxygen Delivery Method Room Air 12/15/22 11:08 BMI result Body Mass Index 31.4 Tobacco/Smoking Status: Tobacco use Status Tobacco use date assessed 09/08/22 12/15/22 11:19 Patient Tobacco Use Status Current everyday Tobacco 12/15/22 11:19 Tobacco use type Cigarette 12/15/22 11:19 e-Cigarette/Vaping Use Currently Using 12/15/22 11:19 Thrive Assessment: Date of Thrive Assessment Date Thrive assessed 06/06/22 12/15/22 11:19 Const General: alert; No acute distress Eyes Conjunctivae: conjunctivae normal Resp Auscultation: clear to auscultation bilaterally Cardio Rate: regular rate Rhythm: regular rhythm GI Inspection: Yes normal to inspection Extrem General: Yes normal to inspection and No edema Results AMB Hemoglobin A1c AMB Hemoglobin A1c 6.8 % Last Edit by SANAM Butt on 12/15/22 11:21 Results Reviewed Results Reviewed: Laboratory Last Values Hgb A1c (Clinic) 6.8 % (4.0-6.0) H 12/15/22 10:51 Assessment and Plan Assessment & Plan (1) Type 2 diabetes mellitus with hyperglycemia: Comment: Dr. Mujica and Dr. Zaldivar Code(s): E11.65 - Type 2 diabetes mellitus with hyperglycemia Qualifiers: Diabetes mellitus rubber ball finisher insulin use: without half-way use Qualified Code(s): E11.65 - Type 2 diabetes mellitus with hyperglycemia Plan: Decrease the amount of carbohydrate intake, pasta, bread, rice and potatoes are all sugar and that is aside from all the sweet stuff, remember that fruits are good but they are Sweet also. hemoglobin A1c goal of less than 7.0 patient is on metformin (2) Hypertension: Code(s): I10 - Essential (primary) hypertension Qualifiers: Hypertension type: essential hypertension Qualified Code(s): I10 - Essential (primary) hypertension Plan: Continue with blood pressure medication. Decrease salt intake and exercise patient is on lisinopril 30 mg once a day (3) Hypercholesterolemia: Code(s): E78.00 - Pure hypercholesterolemia, unspecified Plan: Avoid fried foods, chicken skin, eggs, butter margarine, pastries and meat. Be it pork or beef they have a lot of cholesterol LDL goal of less than 70 and triglyceride of less than 150. March was last blood work not at goal patient is on Zetia 10 mg once a day and atorvastatin 80 mg once a day (4) Hypothyroid: Code(s): E03.9 - Hypothyroidism, unspecified Qualifiers: Hypothyroidism type: acquired Qualified Code(s): E03.9 - Hyp othyroidism, unspecified Plan: continue with thyroid medication (5) Coronary artery disease: Comment: Echo April 2019 normal LV Pseudonormal filling, pericardial effusion July 2019 moderate pericardial effusion PCI done [facility] June 2015 Code(s): I25.10 - Atherosclerotic heart disease of [place] coronary artery without angina pectoris Qualifiers: Coronary Disease-Associated Artery/Lesion type: [place] artery Kaw vs. transplanted heart: [place] heart Associated angina: without angina Qualified Code(s): I25.10 - Atherosclerotic heart disease of [place] coronary artery without angina pectoris Plan: Control the cholesterol, weight, blood pressure, diabetes (6) COPD (chronic obstructive pulmonary disease): Comment: Chronic, mild to moderate COPD, and she also has moderate degree of restrictive disorder. Overall it is staying stable. TX : Continue Breo -200 1 inhalation daily. Rinse the throat very thoroughly after using Breo. And use Proventil HFA 2 puffs Q 4-6 hours only p.r.n. Code(s): J44.9 - Chronic obstructive pulmonary disease, unspecified Qualifiers: COPD type: emphysema Emphysema type: unspecified Qualified Code(s): J43.9 - Emphysema, unspecified Plan: continue with inhaler and stop smoking! (7) Obesity (BMI 30-39.9): Code(s): E66.9 - Obesity, unspecified Plan: Diet and exercise (8) GERD (gastroesophageal reflux disease): Code(s): K21.9 - Gastro-esophageal reflux disease without esophagitis Qualifiers: Esophagitis presence: without esophagitis Qualified Code(s): K21.9 - Gastro-esophageal reflux disease without esophagitis Plan: Avoid the foods that causes that usually spicy foods, tomato products, juices, coffee, soda and foods that your sensitive to. After eating do not lie down, allow 3-4 hours before in lie down. And keep the head of bed above 30 degrees to avoid the acid from going up. (9) Tobacco abuse: Comment: SHE CONTINUES TO SMOKE ABOUT 4-5 CIGARETTES A DAY. COUNSELED THAT SHE SHOULD STOP SMOKING COMPLETELY . . HER COUGH AND CONGESTED FEELING IN THE UPPER AIRWAYS IS MOSTLY SECONDARY TO SMOKING. Code(s): Z72.0 - Tobacco use Plan: Patient strongly advised to stop smoking! (10) Generalized anxiety disorder: Comment: [facility] counselling Code(s): F41.1 - Generalized anxiety disorder Plan: Continue with counseling and therapy (11) Recurrent UTI: Code(s): N39.0 - Urinary tract infection, site not specified Plan: patient follows up with urology and has been given female hormone as well as oxybutynin. PAt (12) Family history of abdominal aortic aneurysm: Code(s): Z82.49 - Family history of ischemic heart disease and other diseases of the circulatory system Orders: Orders Vitamin B12 and Folate 3 Months E11.65 - Type 2 diabetes mellitus with hyperglycemia Comprehensive Met. Panel 3 Months E11.65 - Type 2 diabetes mellitus with hyperglycemia Hemoglobin A1c 3 Months E11.65 - Type 2 diabetes mellitus with hyperglycemia Lipid Panel 3 Months E11.65 - Type 2 diabetes mellitus with hyperglycemia, E78.00 - Pure hypercholesterolemia, unspecified Free T4 (Free Thyroxine) 3 Months E11.65 - Type 2 diabetes mellitus with hyperglycemia Thyroid Stimulating Hormone 3 Months E11.65 - Type 2 diabetes mellitus with hyperglycemia Vitamin D 25-OH Total 3 Months E11.65 - Type 2 diabetes mellitus with hyperglycemia Creatinine Urine 3 Months E11.65 - Type 2 diabetes mellitus with hyperglycemia Microalbumin, Random (w Creat) 3 Months E11.65 - Type 2 diabetes mellitus with hyperglycemia Complete Blood Count Auto Diff 3 Months E11.65 - Type 2 diabetes mellitus with hyperglycemia US abdominal aortic aneurysm Today Z82.49 - Family history of ischemic heart disease and other diseases of the circulatory system AMB Hemoglobin A1c Today E11.65 - Type 2 diabetes mellitus with hyperglycemia Coding Level of Care Code Est Pt Level 4 (03521) Diagnoses Type 2 diabetes mellitus with hyperglycemia E11. Diabetes mellitus rubber ball finisher insulin use: without half-way use Hypertension I10 Hypertension type: essential hypertension Hypercholesterolemia E78.00 Hypothyroid E03.9 Hypothyroidism type: acquired Coronary artery disease I25.10 Coronary Disease-Associated Artery/Lesion type: [place] artery [place] vs. transplanted heart: [place] heart Associated angina: without angina COPD (chronic obstructive pulmonary disease) J43.9 COPD type: emphysema Emphysema type: unspecified Obesity (BMI 30-39.9) E66.9 GERD (gastroesophageal reflux disease) K21.9 Esophagitis presence: without esophagitis Tobacco abuse Z72.0 Generalized anxiety disorder F41.1 Recurrent UTI N39.0 Family history of abdominal aortic aneurysm Z82.49
== END 2022-12-15 12:02 | disposition home or self-care (01) ==
PROVIDERS: Visit Provider Internal Medicine
DX: E11.65 Type 2 diabetes mellitus with hyperglycemia (principal); I10 Essential (primary) hypertension; E03.9 Hypothyroidism, unspecified; Z82.49 Family history of ischemic heart disease and other diseases of the circulatory system; J43.9 Emphysema, unspecified; K21.9 Gastro-esophageal reflux disease without esophagitis; I25.10 Atherosclerotic heart disease of native coronary artery without angina pectoris; E66.9 Obesity, unspecified; E78.00 Pure hypercholesterolemia, unspecified; Z72.0 Tobacco use; F41.1 Generalized anxiety disorder; N39.0 Urinary tract infection, site not specified
CPT/HCPCS: 83036; 99214

== ENCOUNTER 2022-12-15 12:07 | Outpatient (REF) | payer OTHER, SELFPAY ==
--- NOTE | ~2022-12-15 | MM_ITS ---
EXAMINATION: MM SCREENING DIGITAL BREAST TOMOSYNTHESIS, BILATERAL CLINICAL INFORMATION: Screening. Asymptomatic. The lifetime risk of breast cancer based on the Tyrer-Cuzick Model is 10.8%. COMPARISON: Mammography: This study is compared with prior exams dating back to 2019. TECHNIQUE: Digital breast tomosynthesis is performed in both the craniocaudal and mediolateral oblique views along with computer-aided detection (CAD). Synthesized 2D images are generated from the tomosynthesis. FINDINGS: There are scattered areas of fibroglandular density (ACR BI-RADS breast composition Category b). There are no significant masses, abnormal calcifications, or other abnormalities. MM/MM tomosynthesis screening BI IMPRESSION: No mammographic evidence of malignancy. ASSESSMENT: BI-RADS BI-RADS 1 - Negative RECOMMENDATION: Routine annual mammography screening. 1 year F/U This examination should not preclude the clinical evaluation of a suspicious palpable abnormality. This patient's information was entered into a reminder system with a target due date for their next mammogram.
== END 2022-12-15 12:08 | disposition home or self-care (01) ==
LOC: HO.MAMMO 12:07
PROVIDERS: Visit Provider Internal Medicine
DX: Z12.31 Encounter for screening mammogram for malignant neoplasm of breast (principal)
CPT/HCPCS: 77063; 77067

== ENCOUNTER → 2022-12-15 12:15 | Outpatient (BNV) | payer OTHER, SELFPAY | PROVIDERS: Visit Provider Radiology Diagnostic Radiology | DX: Z12.31 Encounter for screening mammogram for malignant neoplasm of breast (principal) | CPT/HCPCS: 77063; 77067 ==

== ENCOUNTER 2022-12-29 10:13 | Outpatient (AMB) | payer OTHER, SELFPAY ==
[2022-12-29 10:19] VITALS: BP 130/58; PULSE 67; O2SAT 98; BMI 31.2
--- NOTE | 2022-12-29 10:19 | MHC.OFFVIS ---
Intake Vital Signs 12/29/22 10:19 Height 5 ft 1 in Weight 165 lb BMI 31.2 BP 130/58 L Blood Pressure Location Lt brachial Position Sitting Pulse 67 Pulse Source Pulse Oximeter Pulse Oximetry (%) 98 Oxygen Delivery Method Room Air Intake Visit Reasons: COPD Intake Note: pt is here for follow up and states she is feeling alright, sugar little high this am, but her breathing is good Admitting Representative Required: No Allergies LATEX Allergy (Intermediate, Verified 12/29/22 10:46) rash MOLD Allergy (Intermediate, Verified 12/29/22 10:46) rash NONORGANIC FOOD Allergy (Intermediate, Verified 12/29/22 10:46) diarrhea Yeast Allergy (Intermediate, Verified 12/29/22 10:46) Diarrhea Medication List - Last Reconciled 12/29/22 by Linwood Orozco MD albuterol sulfate 90 mcg/actuation (Proventil HFA) 2 puffs inhalation Q6H PRN ammonium lactate 12% 1 appl topical BID aspirin (Adult Low Dose Aspirin) 81 mg PO DAILY atorvastatin 80 mg PO BEDTIME betamethasone dipropionate 0.05% apply to hands twice daily Breo Ellipta 200-25 mcg/dose (fluticasone furoate-vilanterol) 1 ea PO DAILY NS cholecalciferol (vitamin D3) 25 mcg PO DAILY estradiol 0.01%(0.1mg/gram) vaginally 3 times a week; pea sized amount to urethra 3 times a week 30 days ezetimibe (Zetia) 10 mg PO BEDTIME fluconazole 100 mg PO DAILY fluocinolone 0.01% 1 appl topical BID fluticasone furoate-vilanterol 200-25 mcg/dose (Breo Ellipta) 1 inh inhalation DAILY 90 days gabapentin 100 mg PO BEDTIME hydrocortisone 2.5% (Proctosol HC) 1 appl [place] BID-QID PRN incontinence pad, liner, disp As directed incontinence pad, liner, disp 7 pads per day lactulose 15 mL PO DAILY PRN levothyroxine 100 mcg PO DAILY lisinopril 30 mg PO DAILY 90 days metformin 500 mg PO BID 30 days metoprolol succinate ER 25 mg PO DAILY miscellaneous medical supply As directed nitroglycerin 0.4 mg sublingual Q5M PRN 30 days nystatin 2 mL PO TID 15 days oxybutynin chloride ER 10 mg PO DAILY 30 days oxycodone 5 mg PO BID [Pad bladder ultra As directed 4 times day ] phenazopyridine (Pyridium) 200 mg PO TID 3 days tafluprost (PF) 1 drp ophthalmic (eye) BEDTIME tafluprost (PF) (Zioptan (PF)) 1 drp ophthalmic (eye) QPM Do you need a note to return to daycare/school/sports/work: No HPI COPD HPI Details 67 years old very pleasant female, comes after 4 months for her routine follow-up. Breathing has been stable except for mild intermittent cough, but no sustained attacks of wheezing or shortness of breath. She does get nasal congestion with mild postnasal drip off and on, and uses Flonase 2 spray in each nostril daily. She has had mild irritation deep in the throat off and on and uses nystatin swishes p.r.n.. She has been smoking a few cigarettes a day, say is not more than 3-4/day . [facility] Medical History Allergic rhinitis Anxiety and depression Carpal tunnel syndrome Cataract COPD (chronic obstructive pulmonary disease) Coronary artery disease GERD (gastroesophageal reflux disease) Glaucoma Goiter diffuse Franky's disease Hypercholesterolemia Hypertension Hypothyroid Obesity (BMI 30-39.9) Thrush, oral Tobacco abuse Type 2 diabetes mellitus with hyperglycemia Surgical History History of tubal ligation Hx of section Family History Father Myocardial infarct Maternal Grandmother Breast cancer Mother Pancreatic cancer Sister Bipolar 1 disorder Other Mental problem Social History Household Members: Family Housing: House Do you presently have visiting nurse or other home services: No Alcohol intake: current Alcohol intake frequency: holidays/special occasions only Patient Tobacco Use Status: Current everyday Tobacco user Tobacco use type: Cigarette Cigarettes Per Day: 4 Years Smoked: 4 cigarettes a day e-Cigarette/Vaping Use: Currently Using Advance Directives Date on File: 03/21/22 service: No Current occupational status: disabled Cognitive needs: No Hearing needs: No Vision needs: Yes Review of Systems Const All systems reviewed & are unremarkable except as noted in HPI and below (I also reviewed PFSH .) Eyes Reports no additional complaints ENT Reports nasal congestion and Reports nasal discharge Card Denies chest pain, Denies irregular heart rhythm and Denies leg edema Resp Reports as per HPI GI Reports no additional complaints Reports no additional complaints Musc Reports back pain (Mild to moderate off and on) Skin/Breast Reports system reviewed and no additional complaints, except as documented Neuro Reports no additional complaints Psych Reports anxiety Endo Reports no additional complaints Physical Exam Vital Signs: Last Vital Signs Pulse 67 12/29/22 10:19 BP 130/58 L 12/29/22 10:19 Pulse Ox 98 12/29/22 10:19 Oxygen Delivery Method Room Air 12/29/22 10:19 BMI result Body Mass Index 31.2 Const General: comfortable, no acute distress, alert and awake Orientation/consciousness: patient oriented x3 HEENT Head: Yes normal to inspection General nose exam: No nasal polyps present, No nasal discharge present and Other nasal findings present (Bilateral nasal congestion) Face and sinus: Yes sinuses nontender Mouth: oropharynx normal (No ulcers of or mucosal white spots were noted.) Eyes General: appearance normal, both eyes and all related structures Neck Neck: Yes normal visual inspection, Yes no lymphadenopathy, Yes trachea midline and Yes no JVD Thyroid: Thyroid normal Chest Chest palpation & inspection: normal inspection of the chest, normal palpation of entire chest wall and no tenderness Resp Other: Percussion note resonant, breath sounds are slightly distant with prolonged expiratory phase I did not hear any wheezes rhonchi or crepitations today. Cardio Palpation: normal PMI Rate: regular rate Rhythm: regular rhythm Heart sounds: no gallops and no murmurs GI Palpation (GI): Soft to palpation, nontender, No hepatosplenomegaly present and no masses Auscultation: normal bowel sounds Back/Spine/Pelvis Thoracic/Lumbar Spine: thoracic and lumbar spine normal to inspection, thoraco-lumbar ROM limited and thoraco-lumbar spasm Skin General skin exam: no rashes or lesions noted Neuro General: patient oriented x3 and no focal motor deficits Cranial nerves: Yes CN's II-XII intact bilaterally Extrem General: Yes normal to inspection, Yes no clubbing, cyanosis or edema and Yes no calf tenderness Psych Appearance: grossly normal and well kempt Speech and movement: Normal speech and movement present Assessment & Plan Assessment & Plan (1) COPD (chronic obstructive pulmonary disease): Comment: Chronic, mild to moderate COPD, and she also has moderate degree of restrictive disorder. Overall it is staying stable. [place] : Continue Breo -200 1 inhalation daily. Rinse the throat very thoroughly after using Breo. And use Proventil HFA 2 puffs Q 4-6 hours only p.r.n. Code(s): J44.9 - Chronic obstructive pulmonary disease, unspecified Qualifiers: COPD type: emphysema Emphysema type: unspecified Qualified Code(s): J43.9 - Emphysema, unspecified (2) Allergic rhinitis: Comment: She has nasal congestion almost on a daily basis. I advised to restart Flonase 2 spray each nostril daily. And may use Claritin 10 mg once a day p.r.n.. Code(s): J30.9 - Allergic rhinitis, unspecified (3) Tobacco abuse: Comment: SHE CONTINUES TO SMOKE ABOUT 4-5 CIGARETTES A DAY. COUNSELED THAT SHE SHOULD STOP SMOKING COMPLETELY . . HER COUGH AND CONGESTED FEELING IN THE UPPER AIRWAYS IS MOSTLY SECONDARY TO SMOKING. Code(s): Z72.0 - Tobacco use (4) Thrush, oral: Comment: Patient has used nystatin swishes just for a few days at a time. At present there is no visible sign of oral thrush. Advised to use nystatin swishes for 2 or 3 days at a time if she has any soreness in the mouth. Code(s): B37.0 - Candidal stomatitis Coding Level of Care Code Est Pt Level 3 (48939) Diagnoses COPD (chronic obstructive pulmonary disease) J43.9 COPD type: emphysema Emphysema type: unspecified Allergic rhinitis J30.9 Tobacco abuse Z72.0 Thrush, oral B37.0
== END 2022-12-29 11:01 | disposition home or self-care (01) ==
PROVIDERS: PCP Internal Medicine; Visit Provider Internal Medicine
DX: J43.9 Emphysema, unspecified (principal); J30.9 Allergic rhinitis, unspecified; Z72.0 Tobacco use; B37.0 Candidal stomatitis
CPT/HCPCS: 99213

== ENCOUNTER → 2022-12-29 10:13 | Outpatient (BNVA) | payer OTHER, SELFPAY | PROVIDERS: Visit Provider Internal Medicine | DX: J43.9 Emphysema, unspecified (principal); J30.9 Allergic rhinitis, unspecified; B37.0 Candidal stomatitis; U07.0 Vaping-related disorder; Z72.0 Tobacco use; Z82.49 Family history of ischemic heart disease and other diseases of the circulatory system; Z79.82 Long term (current) use of aspirin; Z79.891 Long term (current) use of opiate analgesic; Z79.899 Other long term (current) drug therapy | CPT/HCPCS: 99212 ==

== ENCOUNTER 2022-12-30 09:37 | Outpatient (REF) | payer OTHER, SELFPAY ==
--- NOTE | ~2022-12-30 | US_ITS ---
EXAMINATION: US RETROPERITONEAL LIMITED (AORTA) CLINICAL INFORMATION: Family history of ischemic heart disease and other diseases of the circulatory system. COMPARISON: None available. TECHNIQUE: Ferrari-scale, color Doppler and spectral Doppler evaluation of the abdominal aorta. Technically difficult study secondary to bowel gas. FINDINGS: Atherosclerotic aorta. The measurements of the aorta in maximum AP and transverse dimensions respectively are as follows: Proximal: 2.3 x 2.3 cm. Mid: 1.8 x 2.0 cm. Distal: 1.5 x 1.5 cm. PSV: 125 cm/s. The measurements of the common iliac arteries in maximum AP and TRV dimensions are as follows: Right Common Iliac Artery: 1.5 x 1.1 cm. Left Common Iliac Artery: 1.2 x 1.3 cm. US/US abdominal aortic aneurysm IMPRESSION: Negative for abdominal aortic aneurysm.
== END 2022-12-30 09:38 | disposition home or self-care (01) ==
LOC: HO.HMGCX 09:37
PROVIDERS: PCP Internal Medicine; Visit Provider Internal Medicine
DX: Z13.6 Encounter for screening for cardiovascular disorders (principal); Z82.49 Family history of ischemic heart disease and other diseases of the circulatory system
CPT/HCPCS: 76706

== ENCOUNTER 2023-01-08 12:53 | Outpatient (AMB) | payer OTHER, SELFPAY ==
--- NOTE | 2023-01-08 13:04 | A.OFFVIS_ITS ---
Intake Intake Visit Reasons: 6w/US(set) Intake Note: Patient is present for follow up urinary frequency/ recent uti/ultrasound (imaging 12/04/22) Urology Medications: Estrace Cream, Oxybutynin Blood Thinner: aspirin PVR: 0ml's Engineering Job Titles Required: No Accompanied by: Self / Same As Patient Allergies LATEX Allergy (Intermediate, Verified 01/08/23 14:03) rash MOLD Allergy (Intermediate, Verified 01/08/23 14:03) rash NONORGANIC FOOD Allergy (Intermediate, Verified 01/08/23 14:03) diarrhea Yeast Allergy (Intermediate, Verified 01/08/23 14:03) Diarrhea Medication List - Last Reconciled 01/08/23 by ELISEO Dorsey albuterol sulfate 90 mcg/actuation (Proventil HFA) 2 puffs inhalation Q6H PRN ammonium lactate 12% 1 appl topical BID aspirin (Adult Low Dose Aspirin) 81 mg PO DAILY atorvastatin 80 mg PO DAILY betamethasone dipropionate 0.05% apply to hands twice daily Breo Ellipta 200-25 mcg/dose (fluticasone furoate-vilanterol) 1 ea PO DAILY NS cholecalciferol (vitamin D3) 25 mcg PO DAILY clonazepam 1 mg PO Q8H estradiol 0.01%(0.1mg/gram) vaginally 3 times a week; pea sized amount to urethra 3 times a week 30 days ezetimibe (Zetia) 10 mg PO BEDTIME fluconazole 100 mg PO DAILY fluocinolone 0.01% 1 appl topical BID fluticasone furoate-vilanterol 200-25 mcg/dose (Breo Ellipta) 1 inh inhalation DAILY 90 days gabapentin 100 mg PO BEDTIME hydrocortisone 2.5% (Proctosol HC) 1 appl [place] BID-QID PRN incontinence pad, liner, disp As directed incontinence pad, liner, disp 7 pads per day lactulose 15 mL PO DAILY PRN levothyroxine 100 mcg PO DAILY lisinopril 30 mg PO DAILY 90 days metformin 500 mg PO BID 30 days metoprolol succinate ER 25 mg PO DAILY mirabegron ER (Myrbetriq) 25 mg PO DAILY 30 days miscellaneous medical supply As directed nitroglycerin 0.4 mg sublingual Q5M PRN 30 days nystatin 2 mL PO TID 15 days oxycodone 5 mg PO BID [Pad bladder ultra As directed 4 times day ] phenazopyridine (Pyridium) 200 mg PO TID 3 days sulfamethoxazole-trimethoprim 800-160 mg (Bactrim DS) 1 tab PO BID 14 days tafluprost (PF) 1 drp ophthalmic (eye) BEDTIME tafluprost (PF) (Zioptan (PF)) 1 drp ophthalmic (eye) QPM timolol maleate (PF) 0.5% 1 drp ophthalmic (eye) BID HPI HPI Comments History of Present Illness Details Pina is a pleasant 67-year-old female patient of Dr. Whitman. She presents to the office today for follow-up of her overactive bladder and recurrent UTI's. She has a past medical history of type 2 diabetes, anxiety, depression, GERD, COPD, hypercholesteremia, hypothyroid, hypertension, and bilateral hip joint arthritis. Of note, patient was seen approximately 3 months ago at which time a retroperitoneal ultrasound was ordered for further assessment evaluation in the patient was started on estradiol cream. Recent retroperitoneal ultrasound results reviewed with the patient today. Bilateral kidneys with no hydronephrosis or renal calculi limited visualization. Pre void bladder volume is approximately 160 mL. Postvoid bladder volume is approximately 60 mL. When asked patient reports compliance with Estrace cream as prescribed. She discusses having trialed oxybutynin as prescribed during last office visit however experience side effects (dry mouth and constipation) thus she stopped taking medication. She reports following up with urgent care due to lower urinary tract symptoms with question of a urinary tract infection at which time she was treated and feels symptoms are somewhat better. When asked she currently endorses to urinary frequency, dysuria, and episodes of urinary urgency and incontinence if not near a bathroom. She otherwise denies nocturia, hematuria, foul smelling urine, changes to urinary stream, flank pain, fever, and or chills. In office urinalysis results reviewed with the patient today. PVR 0 mL. She otherwise offers no other issues or concerns at this time. [facility] Medical History Allergic rhinitis Anxiety and depression Carpal tunnel syndrome Cataract COPD (chronic obstructive pulmonary disease) Coronary artery disease GERD (gastroesophageal reflux disease) Glaucoma Goiter diffuse Franky's disease Hypercholesterolemia Hypertension Hypothyroid Obesity (BMI 30-39.9) Thrush, oral Tobacco abuse Type 2 diabetes mellitus with hyperglycemia Surgical History History of tubal ligation Hx of section Family History Father Myocardial infarct Maternal Grandmother Breast cancer Mother Pancreatic cancer Sister Bipolar 1 disorder Other Mental problem Social History Household Members: Family Housing: House Do you presently have visiting nurse or other home services: No Alcohol intake: current Alcohol intake frequency: holidays/special occasions only Patient Tobacco Use Status: Current everyday Tobacco user Tobacco use type: Cigarette Cigarettes Per Day: 4 Years Smoked: 4 cigarettes a day e-Cigarette/Vaping Use: Currently Using Advance Directives Date on File: 03/21/22 service: No Current occupational status: disabled Cognitive needs: No Hearing needs: No Vision needs: Yes Review of Systems Const Reports as per HPI Eyes Reports no additional complaints ENT Reports no additional complaints Card Reports as per HPI Resp Reports as per HPI GI Reports as per HPI Reports as per HPI Musc Reports as per HPI Neuro Reports no additional complaints Psych Reports as per HPI Endo Reports as per HPI Physical Exam Const General: cooperative, healthy appearing, comfortable, no acute distress, well developed, alert and awake Orientation/consciousness: patient oriented x3 Limitations: ambulation with cane HEENT Head: Yes normal to inspection, Yes normocephalic and Yes atraumatic Ears: hearing grossly normal bilaterally Eyes General: appearance normal, both eyes and all related structures Neck Neck: Yes normal visual inspection and Yes trachea midline Chest Chest palpation & inspection: normal inspection of the chest Resp Effort & Inspection: normal respiratory effort and able to speak in complete sentences Cardio Rate: regular rate GI Inspection: Yes normal to inspection General: Yes no CVA tenderness Back/Spine/Pelvis Back: no CVA tenderness Skin General skin exam: no rashes or lesions noted Neuro General: patient oriented x3 Extrem General: Yes normal to inspection Psych Appearance: grossly normal and well kempt Mental Status: mental status grossly normal Speech and movement: Normal speech and movement present and Clear speech present Affect: normal affect Attitude: cooperative Thought process: Normal thought process present Thought content: Normal thought content present Insight: Fair insight present (Psych) Judgement: Fair judgement present (Psych) Office Procedures Post Void Residual Post Residual Void Post Void Residual (PVR): 0 [id number] Void Residual by ultrasound Results AMB Urinalysis, Automated UA Leukoctes 500 Ivette/uL Last Edit by Young Sullivan on 01/08/23 13:37 UA Nitrite Last Edit by Young Sullivan on 01/08/23 13:37 UA Urobilinogen 0.2 mg/dL Last Edit by Young Sullivan on 01/08/23 13:37 UA Protein 0 mg/dL Last Edit by Auto Load Logiclinnea Sullivan on 01/08/23 13:37 UA pH 6.0 Last Edit by [employer] ([employer]cassidy on 01/08/23 13:37 UA Blood 10 Jordan/uL Last Edit by Auto Load Logiclinnea Sullivan on 01/08/23 13:37 UA Specific Frankford 1.025 Last Edit by Auto Load Logiclinnea Sullivan on 01/08/23 13:37 UA Ketone Negative Last Edit by Auto [employer] Logiclinnea Sullivan on 01/08/23 13:37 UA Bilirubin 0 mg/dL Last Edit by Auto Load Logiclinnea Sullivan on 01/08/23 13:37 UA Glucose 0 mg/dL Last Edit by Auto Load Logiclinnea Sullivan on 01/08/23 13:37 Results Reviewed Results Reviewed: Laboratory Last Values Urine pH (Auto) 6.0 01/08/23 13:18 Specific Frank[place] (Auto) 1.025 01/08/23 13:18 Urine Protein (Auto) 0 mg/dL 01/08/23 13:18 Glucose (UA)(Auto) 0 mg/dL 01/08/23 13:18 Urine Ketones (Auto) Negative 01/08/23 13:18 Urine Blood (Auto) 10 Jordan/uL 01/08/23 13:18 Urine Bilirubin (Auto) 0 mg/dL 01/08/23 13:18 Urine Urobilinogen (Auto) 0.2 mg/dL 01/08/23 13:18 Leukocyte Esterase (Auto) 500 Ivette/uL 01/08/23 13:18 Date of Service: 12/04/22 FINDINGS: RIGHT KIDNEY: 11.2 x 3.9 x 4.6 cm (SAG x AP x TRV). No hydronephrosis. No renal calculi. Limited visualization. LEFT KIDNEY: 12.8 x 4.0 x 5.4 cm (SAG x AP x TRV). No hydronephrosis. No renal calculi. Limited visualization. BLADDER: Partially distended, limiting evaluation. Bilateral ureteral jets are demonstrated. Prevoid bladder volume is 161 mL. Postvoid bladder volume is 62 mL. IMPRESSION: No hydronephrosis. No renal calculi. Limited visualization. ? Postvoid bladder volume is 62 mL. Assessment & Plan Assessment & Plan (1) Urinary frequency: Code(s): R35.0 - Frequency of micturition (2) Recurrent UTI: Code(s): N39.0 - Urinary tract infection, site not specified (3) Urinary urgency: Code(s): R39.15 - Urgency of urination (4) Urinary incontinence: Code(s): R32 - Unspecified urinary incontinence (5) Dysuria: Code(s): R30.0 - Dysuria Plan In office urinalysis results reviewed with the patient today. PVR 0 mL. Recent retroperitoneal ultrasound results reviewed with the patient today; as noted above. Continue Estrace cream as discussed and prescribed. Stop oxybutynin 10 mg Start Myrbetriq as discussed and prescribed Discussed pelvic floor therapy ; however patient reports transportation is an issue for her as she does not drive and utilizes bus services. Discussed near future in office cystoscopy if symptoms persist and/or worsen. Discussed at length importance of managing diabetes for improvement in urinary symptoms as well as overall health and well-being. Follow-up in 6 weeks with PVR; or sooner with any issues, concerns, and or questions. Orders: Orders AMB Urinalysis Automated Today Z13.9 - Encounter for screening, unspecified AMB Post Void Residual by ultrasound Today N34.2 - Other urethritis Medications: New mirabegron ER (Myrbetriq) 25 mg PO DAILY 30 days 30 tabs 1RF N30.10 - Interstitial cystitis (chronic) without hematuria, N32.81 - Overactive bladder, R35.1 - Nocturia, R39.15 - Urgency of urination sulfamethoxazole-trimethoprim 800-160 mg (Bactrim DS) 1 tab PO BID 14 days 28 t abs 0RF N39.0 - Urinary tract infection, site not specified Discontinued oxybutynin chloride ER Discontinued Reason: Doctor's Order 10 mg PO DAILY 30 days 30 tabs 1RF N32.81 - Overactive bladder Patient Instructions: The patient had an opportunity to ask questions regarding the treatment plan. All questions were answered. Physical exam, labs, and imaging were discussed and reviewed in detail. As well as risks, benefits, and discussion of treatment choices. No major barriers to understanding were identified. The patient expressed understanding and agreement with the above treatment plan. The patient was made aware they should contact our office by phone for worsening of their current condition, the appearance of new symptoms, or with any questions or concerns. Compliance is encouraged with any medications and follow up testing that is ordered. It is a privilege to be allowed the opportunity to participate in? your urological care.? Again, if you have any questions or concerns If you have any questions or concerns please do not hesitate to contact me. The office is [phone]. This note is constructed using voice recognition software. While every effort has been made to ensure accuracy is consultant errors may have been included. Yours sincerely, ELISEO Dorsey Coding Level of Care Code Est Pt Level 4 (77722) Diagnoses Urinary frequency R35.0 Recurrent UTI N39.0 Urinary urgency R39.15 Urinary incontinence R32 Dysuria R30.0 CPT Codes Post Residual Void - PVR CPT Code: 50498-Fyzg Void Residual by ultrasound ([id number])
== END 2023-01-08 14:02 | disposition home or self-care (01) ==
PROVIDERS: PCP Internal Medicine; Visit Provider Nurse Practitioner Family
DX: R35.0 Frequency of micturition (principal); N39.0 Urinary tract infection, site not specified; R39.15 Urgency of urination; R32 Unspecified urinary incontinence; R30.0 Dysuria
CPT/HCPCS: 99214

== ENCOUNTER → 2023-01-08 12:53 | Outpatient (BNVA) | payer OTHER, SELFPAY | PROVIDERS: PCP Internal Medicine; Visit Provider Nurse Practitioner Family | DX: R35.0 Frequency of micturition (principal); R39.15 Urgency of urination; R32 Unspecified urinary incontinence; R30.0 Dysuria; N39.0 Urinary tract infection, site not specified | CPT/HCPCS: 51798; 81003; 99212 ==

== ENCOUNTER 2023-03-06 12:20 | Outpatient (REF) | payer OTHER, SELFPAY ==
[2023-03-06 13:11] LABS: Basophils Absolute Auto 0.1 X10*3/uL (0.0-0.2); Basophils Percent Auto 0.7 % (0-2); Eosinophils Absolute Auto 0.3 X10*3/uL (0.0-0.4); Eosinophils Percent Auto 2.6 % (0-4); Hematocrit 41.4 % (37.0-47.0); Hemoglobin 13.7 g/dl (12.0-16.0); Imm Gran Abs Auto 0.07 X10*3/uL (0.00-0.03); Imm Gran Pct Auto 0.7 % (0.0-0.4); Lymphocytes Absolute Auto 2.1 X10*3/uL (1.2-4.9); Lymphocytes Percent Auto 21.7 % (20-40); MANUAL DIFF FLAG NO; Mean Corpuscular HGB Conc 33.1 g/dl (31.0-35.0); Mean Corpuscular Hemoglobin 32.9 pg (27.0-33.0); Mean Corpuscular Volume 99.5 fL (80.0-98.0); Mean Platelet Volume 9.8 fL (9.4-12.3); Monocytes Absolute Auto 0.7 X10*3/uL (0.1-1.2); Monocytes Percent Auto 7.6 % (2-11); Neutrophils Absolute Auto 6.5 x10*3/uL (2.0-8.3); Neutrophils Percent Auto 66.7 % (45-73); Platelet Count 166 X10*3/uL (160-400); Red Blood Count 4.16 X10*6/uL (4.20-5.50); Red Cell Distribution Width 13.2 % (11.0-16.0); White Blood Count 9.8 X10*3/uL (4.8-10.8)
[2023-03-06 14:08] LABS: Alanine Aminotransferase 23 U/L (0-31); Albumin Level 4.3 g/dL (3.5-5.0); Alkaline Phosphatase 76 U/L (39-117); Anion Gap 15 (12-20); Aspartate Amino Transferase 16 U/L (5-31); Bilirubin Total 0.6 mg/dL (0.0-1.0); Blood Urea Nitrogen 22 mg/dL (9-16); Calcium 10.5 mg/dL (8.4-10.2); Carbon Dioxide 23 mmol/L (22-29); Chloride 107 mmol/L (96-108); Cholesterol 101 mg/dL (<200); Estimated Glomerular Filt Rate > 60; Glucose Random 110 mg/dL (60-115); HDL Cholesterol 30 mg/dL (>40); LDL Cholesterol Calculated 52 mg/dL (<100); Potassium 4.7 mmol/L (3.3-5.1); Sodium 140 mmol/L (135-145); Total Protein 7.4 g/dL (6.5-8.0); Triglycerides 98 mg/dL (<150)
[2023-03-06 14:13] LABS: Estimated Average Glucose 140 mg/dL; Hemoglobin A1c % 6.5 % (<6.0)
[2023-03-06 14:25] LABS: Creatinine Urine 95.08 mg/dL
[2023-03-06 14:30] LABS: Free T4 (Free Thyroxine) 1.14 ng/dL (0.71-1.85); Thyroid Stimulating Hormone 1.23 uIU/mL (0.32-4.0); Vitamin D 25-OH Total 50.2 ng/mL (>30)
[2023-03-06 14:34] LABS: Folate 10.2 ng/mL (> or = 4.0); Vitamin B12 489 pg/mL (200-900)
== END 2023-03-06 12:21 | disposition home or self-care (01) ==
LOC: HO.LAB 12:20
PROVIDERS: PCP Internal Medicine; Visit Provider Internal Medicine
DX: E11.65 Type 2 diabetes mellitus with hyperglycemia (principal); E78.00 Pure hypercholesterolemia, unspecified; E55.9 Vitamin D deficiency, unspecified
CPT/HCPCS: 36415; 80053; 80061; 82043; 82306; 82570; 82607; 82746; 83036; 84439; 84443; 85025

== ENCOUNTER 2023-03-23 13:01 | Outpatient (AMB) | payer OTHER, SELFPAY ==
[2023-03-23 13:05] VITALS: BP 124/62; PULSE 77; O2SAT 97; BMI 31.6
--- NOTE | 2023-03-23 13:05 | A.OFFPC_ITS ---
Vital Signs 03/23/23 13:05 Height 5 ft 1 in Weight 167 lb BMI 31.6 BP 124/62 Blood Pressure Location Lt brachial Position Sitting Pulse 77 Pulse Source Pulse Oximeter Pulse Oximetry (%) 97 Oxygen Delivery Method Room Air Intake Visit Reasons: 3 month f/u Allergies LATEX Allergy (Intermediate, Verified 01/08/23 14:03) rash MOLD Allergy (Intermediate, Verified 01/08/23 14:03) rash NONORGANIC FOOD Allergy (Intermediate, Verified 01/08/23 14:03) diarrhea Yeast Allergy (Intermediate, Verified 01/08/23 14:03) Diarrhea Tobacco use date assessed: 09/08/22 HPI 3 month f/u HPI Details 68-year-old obese female smoker with jhon betes mellitus hypertension hypercholesterolemia hypothyroidism coronary artery disease COPD GERD coming in for follow-up. Last seen in November 2022. Patient's colonoscopy is up-to-date mammogram up-to-date. With the recurrent UTI /overactive bladder patient was sent to urology started with estradiol cream patient was started onmyrbetriq. Patient also has seen Pulmonary December 2022 continue with the Breo and Proventil Flonase requested advised to strongly stop smoking. not ready to stop smoking. [facility] Medical History Allergic rhinitis Anxiety and depression Carpal tunnel syndrome Cataract COPD (chronic obstructive pulmonary disease) Coronary artery disease GERD (gastroesophageal reflux disease) Glaucoma Goiter diffuse Franky's disease Hypercholesterolemia Hypertension Hypothyroid Obesity (BMI 30-39.9) Thrush, oral Tobacco abuse Type 2 diabetes mellitus with hyperglycemia Surgical History History of tubal ligation Hx of section Family History Father Myocardial infarct Maternal Grandmother Breast cancer Mother Pancreatic cancer Sister Bipolar 1 disorder Other Mental problem Social History Household Members: Family Housing: House Do you presently have visiting nurse or other home services: No Alcohol intake: current Alcohol intake frequency: holidays/special occasions only Patient Tobacco Use Status: Current everyday Tobacco user Tobacco use type: Cigarette Cigarettes Per Day: 4 Years Smoked: 4 cigarettes a day e-Cigarette/Vaping Use: Currently Using Advance Directives Date on File: 03/21/22 service: No Current occupational status: disabled Cognitive needs: No Hearing needs: No Vision needs: Yes Questionnaire Thrive Questionnaire Date Thrive assessed: 06/06/22 RYLAN-7 AMB Questionnaire RYLAN-7 Date RYLAN - 7 assessed: 06/06/22 Source: Developed by Drs. Ras Asif, Kim Jones, Dyllan Nroris and colleagues, with an educational kosta from [employer]. Physical exam (Primary Care) Vital Signs: Last Vital Signs Pulse 77 03/23/23 13:05 BP 124/62 03/23/23 13:05 Pulse Ox 97 03/23/23 13:05 Oxygen Delivery Method Room Air 03/23/23 13:05 BMI result Body Mass Index 31.6 Tobacco/Smoking Status: Tobacco use Status Tobacco use date assessed 09/08/22 03/23/23 13:08 Patient Tobacco Use Status Current everyday Tobacco 03/23/23 13:08 Tobacco use type Cigarette 03/23/23 13:08 e-Cigarette/Vaping Use Currently Using 03/23/23 13:08 Thrive Assessment: Date of Thrive Assessment Date Thrive assessed 06/06/22 03/23/23 13:08 Const General: alert; No acute distress Eyes Conjunctivae: conjunctivae normal Resp Auscultation: clear to auscultation bilaterally Cardio Rate: regular rate Rhythm: regular rhythm GI Inspection: Yes normal to inspection Extrem General: Yes normal to inspection and No edema Assessment and Plan Assessment & Plan (1) Type 2 diabetes mellitus with hyperglycemia: Comment: Dr. Mujica and Dr. Zaldivar Code(s): E11.65 - Type 2 diabetes mellitus with hyperglycemia Qualifiers: Diabetes mellitus intermodal dispatcher insulin use: without intermodal dispatcher use Qualifi ed Code(s): E11.65 - Type 2 diabetes mellitus with hyperglycemia Plan: Decrease the amount of carbohydrate intake, pasta, bread, rice and potatoes are all sugar and that is aside from all the sweet stuff, remember that fruits are good but they are Sweet also. Hemoglobin A1c goal of less than 7.0 patient is on metformin 500 mg twice a day (2) Hypertension: Code(s): I10 - Essential (primary) hypertension Qualifiers: Hypertension type: essential hypertension Qualified Code(s): I10 - Essential (primary) hypertension Plan: Continue with blood pressure medication. Decrease salt intake and exercise continue with lisinopril 30 mg once a day metoprolol 25 mg once a day (3) Hypothyroid: Code(s): E03.9 - Hypothyroidism, unspecified Qualifiers: Hypothyroidism type: acquired Qualified Code(s): E03.9 - Hypothyroidism, unspecified Plan: Continue with the thyroid medication (4) Hypercholesterolemia: Code(s): E78.00 - Pure hypercholesterolemia, unspecified Plan: Avoid fried foods, chicken skin, eggs, butter margarine, pastries and meat. Be it pork or beef they have a lot of cholesterol LDL goal of less than 70 and triglyceride of less than 150 (5) Coronary artery disease: Comment: Echo April 2019 normal LV Pseudonormal filling, pericardial effusion July 2019 moderate pericardial effusion PCI done [facility] June 2015 Code(s): I25.10 - Atherosclerotic heart disease of [place] coronary artery without angina pectoris Qualifiers: Coronary Disease-Associated Artery/Lesion type: [place] artery [place] vs. transplanted heart: [place] heart Associated angina: without angina Qualified Code(s): I25.10 - Atherosclerotic heart disease of [place] coronary artery without angina pectoris Plan: Control the cholesterol, weight, blood pressure, diabetes continue with aspirin (6) COPD (chronic obstructive pulmonary disease): Comment: Chronic, mild to moderate COPD, and she also has moderate degree of restrictive disorder. Overall it is staying stable. [place] : Continue Breo -200 1 inhalation daily. Rinse the throat very thoroughly after using Breo. And use Proventil HFA 2 puffs Q 4-6 hours only p.r.n. Code(s): J44.9 - Chronic obstructive pulmonary disease, unspecified Qualifiers: COPD type: emphysema Emphysema type: unspecified Qualified Code(s): J43.9 - Emphysema, unspecified Plan: Patient follows up with Pulmonary and continue with the inhalers (7) Obesity (BMI 30-39.9): Code(s): E66.9 - Obesity, unspecified Plan: Diet and exercise (8) Tobacco abuse: Comment: SHE CONTINUES TO SMOKE ABOUT 4-5 CIGARETTES A DAY. COUNSELED THAT SHE SHOULD STOP SMOKING COMPLETELY . . HER COUGH AND CONGESTED FEELING IN THE UPPER AIRWAYS IS MOSTLY SECONDARY TO SMOKING. Code(s): Z72.0 - Tobacco use Plan: Patient strongly advised to stop smoking admission point (9) GERD (gastroesophageal reflux disease): Code(s): K21.9 - Gastro-esophageal reflux disease without esophagitis Qualifiers: Esophagitis presence: without esophagitis Qualified Code(s): K21.9 - Gastro-esophageal reflux disease without esophagitis Plan: Avoid the foods that causes that usually spicy foods, tomato products, juices, coffee, soda and foods that your sensitive to. After eating do not lie down, allow 3-4 hours before in lie down. And keep the head of bed above 30 degrees to avoid the acid from going up. Patient advised to stop smoking (10) Generalized anxiety disorder: Comment: [facility] counselling Code(s): F41.1 - Generalized anxiety disorder Plan: Continue with present medication (11) Candidal intertrigo: Code(s): B37.2 - Candidiasis of skin and nail Orders: Orders PTHI Today E83.52 - Hypercalcemia Calcium, Ionized Today E83.52 - Hypercalcemia Medications: New [WIPES] As directed 4 ea 12RF R32 - Unspecified urinary incontinence nystatin (Nystop) 1 appl topical BID 60 grams 4RF B37.2 - Candidiasis of skin and nail [BEDSIDE COMMODE] As directed 1 ea 0RF R32 - Unspecified urinary incontinence Changed From incontinence pad, liner, disp 7 pads per day 210 ea 12RF R32 - Unspecified urinary incontinence, R39.15 - Urgency of urination To incontinence pad, liner, disp 8 pads per day [id number] Contour Plus BC pad , Inco, Max 224 ea 12RF R32 - Unspecified urinary incontinence, R39.15 - Urgency of urination Refilled hydrocortisone 2.5% (Proctosol HC) 1 appl [place] BID-QID PRN 30 grams 1RF hemorrhoids K64.9 - Unspecified hemorrhoids Coding Level of Care Code Est Pt Level 4 (37687) Diagnoses Type 2 diabetes mellitus with hyperglycemia, without long-term current use of insulin E11.65 Diabetes mellitus senior care insulin use: without senior care use Essential hypertension I10 Hypertension type: essential hypertension Acquired hypothyroidism E03.9 Hypothyroidism type: acquired Hypercholesterolemia E78.00 Coronary artery disease involving [place] coronary artery of [place] heart without angina pectoris I25.10 Coronary Disease-Associated Artery/Lesion type: [place] artery [place] vs. transplanted heart: [place] heart Associated angina: without angina Pulmonary emphysema, unspecified emphysema type J43.9 COPD type: emphysema Emphysema type: unspecified Obesity (BMI 30-39.9) E66.9 Tobacco abuse Z72.0 Gastroesophageal reflux disease without esophagitis K21.9 Esophagitis presence: without esophagitis Generalized anxiety disorder F41.1 Candidal intertrigo B37.2
== END 2023-03-23 13:46 | disposition home or self-care (01) ==
PROVIDERS: PCP Internal Medicine; Visit Provider Internal Medicine
DX: E11.65 Type 2 diabetes mellitus with hyperglycemia (principal); J43.9 Emphysema, unspecified; I10 Essential (primary) hypertension; E03.9 Hypothyroidism, unspecified
CPT/HCPCS: 99214

== ENCOUNTER 2023-04-17 13:57 | Outpatient (REF) | payer OTHER, SELFPAY | END 2023-04-17 13:58 | disposition home or self-care (01) | LOC: HO.LAB 13:57 | PROVIDERS: PCP Internal Medicine; Visit Provider Nurse Practitioner Family | DX: N39.0 Urinary tract infection, site not specified (principal) | CPT/HCPCS: 87086 ==

== ENCOUNTER → 2023-04-20 13:37 | Outpatient (BNVA) | payer OTHER, SELFPAY | PROVIDERS: PCP Internal Medicine; Visit Provider Nurse Practitioner Family ==

== ENCOUNTER 2023-04-28 11:28 | Outpatient (AMB) | payer OTHER, SELFPAY ==
--- NOTE | 2023-04-28 11:41 | MHC.OFFVIS ---
Intake Intake Visit Reasons: 6 week follow up/ PVR Intake Note: Patient is present for urinary frequency/ recent uti Urology Medication: d/c oxybutynin, myrbetriq Blood Thinner: aspirin PVR: 15ml's Repairer Shoe Sticks Required: No Accompanied by: Self / Same As Patient Allergies LATEX Allergy (Intermediate, Verified 04/28/23 21:43) rash MOLD Allergy (Intermediate, Verified 04/28/23 21:43) rash NONORGANIC FOOD Allergy (Intermediate, Verified 04/28/23 21:43) diarrhea Yeast Allergy (Intermediate, Verified 04/28/23 21:43) Diarrhea Medication List - Last Reconciled 04/28/23 by JUSTO Dorsey-BC albuterol sulfate 90 mcg/actuation (Proventil HFA) 2 puffs inhalation Q6H PRN ammonium lactate 12% 1 appl topical BID aspirin (Adult Low Dose Aspirin) 81 mg PO DAILY atorvastatin 80 mg PO DAILY [BEDSIDE COMMODE As directed] betamethasone dipropionate 0.05% apply to hands twice daily Breo Ellipta 200-25 mcg/dose (fluticasone furoate-vilanterol) 1 ea PO DAILY NS cholecalciferol (vitamin D3) 25 mcg PO DAILY clonazepam 1 mg PO Q8H [commode As directed] estradiol 0.01%(0.1mg/gram) vaginally 3 times a week; pea sized amount to urethra 3 times a week 30 days ezetimibe (Zetia) 10 mg PO BEDTIME fluticasone furoate-vilanterol 200-25 mcg/dose (Breo Ellipta) 1 inh inhalation DAILY 90 days fluticasone propionate 50 mcg/actuation 2 sprays intranasal DAILY gabapentin 100 mg PO BEDTIME hydrocortisone 2.5% (Proctosol HC) 1 appl [place] BID-QID PRN incontinence pad, liner, disp 8 pads per day [id number] Contour Plus BC pad , Inco, Max incontinence pad, liner, disp As directed [incontinent wipes As directed] lactulose 15 mL PO DAILY PRN levothyroxine 100 mcg PO DAILY lisinopril 30 mg PO DAILY 90 days metformin 500 mg PO BID 30 days metoprolol succinate ER 25 mg PO DAILY mirabegron ER (Myrbetriq) 50 mg (2 x 25 mg) PO DAILY 90 days miscellaneous medical supply As directed nitroglycerin 0.4 mg sublingual Q5M PRN 30 days nystatin (Nystop) 1 appl topical BID nystatin 2 mL PO TID 15 days oxycodone 5 mg PO BID [Pad bladder ultra As directed 4 times day ] sulfamethoxazole-trimethoprim 800-160 mg (Bactrim DS) 1 tab PO BID 14 days tafluprost (PF) 0.0015% (Zioptan (PF)) 1 drp ophthalmic (eye) QPM timolol maleate (PF) 0.5% 1 drp ophthalmic (eye) BID [WIPES As directed] HPI HPI Comments History of Present Illness Details Pina is a pleasant 68-year-old female patient of Dr. Whitman. She presents to the office today for follow-up of her overactive bladder and recurrent UTI's. She has a past medical history of type 2 diabetes, anxiety, depression, GERD, COPD, hypercholesteremia, hypothyroid, hypertension, and bilateral hip joint arthritis. She presents to the office today for follow-up of her recurrent urinary tract infections and lower urinary tract symptoms. Previous workup has included a retroperitoneal ultrasound noting bilateral kidneys with no hydronephrosis or renal calculi limited visualization. Pre void bladder volume is approximately 160 mL. Postvoid bladder volume is approximately 60 mL. When asked patient reports compliance with Estrace cream as prescribed. She reports noting somewhat improvement in lower urinary tract symptoms with Myrbetriq 25 mg daily. She reports having noticed less episodes of mixed urinary incontinence and feels nocturia has also improved. She has trialed oxybutynin, tolterodine, and Toviaz in the past with no improvement in lower urinary tract symptoms. She is currently on antibiotic therapy for urinary tract infection/microgen results reviewed with the patient today. Klebsiella pneumoniae she is currently being treated with Bactrim full strength b.i.d. times 14 days. She discusses not having picked up prescription provided as she had left over Bactrim at home. Discussed and stressed the importance of taking medications as prescribed. She reports feeling the best she has felt in a long time with regards to her urinary issues. She currently denies any bothersome urinary issues or concerns. She denies any UTI like symptoms. In office urinalysis results reviewed with the patient today. PVR 15ml's. She otherwise denies hematuria, foul smelling urine, changes to urinary stream, flank pain, fever, and or chills. Discussed further assessment evaluation with urodynamics given patient's history of multiple failed overactive bladder medications. [facility] Medical History Thrush, oral Allergic rhinitis Franky's disease Goiter diffuse Cataract Glaucoma Tobacco abuse Type 2 diabetes mellitus with hyperglycemia Anxiety and depression GERD (gastroesophageal reflux disease) Obesity (BMI 30-39.9) COPD (chronic obstructive pulmonary disease) Coronary artery disease Carpal tunnel syndrome Hypercholesterolemia Hypothyroid Hypertension Surgical History Hx of section History of tubal ligation Family History Father Myocardial infarct Maternal Grandmother Breast cancer Mother Pancreatic cancer Sister Bipolar 1 disorder Other Mental problem Social History Household Members: Family Housing: House Do you presently have visiting nurse or other home services: No Alcohol intake: current Alcohol intake frequency: holidays/special occasions only Patient Tobacco Use Status: Current everyday Tobacco user Tobacco use type: Cigarette Cigarettes Per Day: 4 Years Smoked: 4 cigarettes a day e-Cigarette/Vaping Use: Currently Using Advance Directives Date on File: 03/21/22 service: No Current occupational status: disabled Cognitive needs: No Hearing needs: No Vision needs: Yes Review of Systems Const Reports as per [facility] Eyes Reports no additional complaints ENT Reports no additional complaints Card Reports as per [facility] Resp Reports as per [facility] GI Reports as per [facility] Reports as per [facility] Musc Reports as per [facility] Neuro Reports no additional complaints Psych Reports as per [facility] Endo Reports as per [facility] Office Procedures Post Void Residual Post Residual Void Post Void Residual (PVR): 15 [id number] Void Residual by ultrasound Results AMB Urinalysis, Automated UA Leukoctes 0 Ivette/uL Last Edit by Young Sullivan on 04/28/23 12:10 UA Nitrite Negative Last Edit by Young Sullivan on 04/28/23 12:10 UA Urobilinogen 0.2 mg/dL Last Edit by Young Sullivan on 04/28/23 12:10 UA Protein 0 mg/dL Last Edit by Young Sullivan on 04/28/23 12:10 UA pH 6.0 Last Edit by Young Sullivan on 04/28/23 12:10 UA Blood 0 Jordan/uL Last Edit by Young Sullivan on 04/28/23 12:10 UA Specific Bloomery 1.015 Last Edit by Young Sullivan on 04/28/23 12:10 UA Ketone Negative Last Edit by Young Graycassidy on 04/28/23 12:10 UA Bilirubin 0 mg/dL Last Edit by Young Sullivan on 04/28/23 12:10 UA Glucose 0 mg/dL Last Edit by Young Sullivan on 04/28/23 12:10 Results Reviewed Results Reviewed: Laboratory Last Values Urine pH (Auto) 6.0 04/28/23 11:54 Specific Bloomery (Auto) 1.015 04/28/23 11:54 Urine Protein (Auto) 0 mg/dL 04/28/23 11:54 Glucose (UA)(Auto) 0 mg/dL 04/28/23 11:54 Urine Ketones (Auto) Negative 04/28/23 11:54 Urine Blood (Auto) 0 Jordan/uL 04/28/23 11:54 Urine Nitrite (Auto) Negative 04/28/23 11:54 Urine Bilirubin (Auto) 0 mg/dL 04/28/23 11:54 Urine Urobilinogen (Auto) 0.2 mg/dL 04/28/23 11:54 Leukocyte Esterase (Auto) 0 Ivette/uL 04/28/23 11:54 Assessment & Plan Assessment & Plan (1) Recurrent UTI: Code(s): N39.0 - Urinary tract infection, site not specified (2) Urinary frequency: Code(s): R35.0 - Frequency of micturition (3) Urinary urgency: Code(s): R39.15 - Urgency of urination (4) Urinary incontinence: Code(s): R32 - Unspecified urinary incontinence Plan In office urinalysis results reviewed with the patient today; as noted above. PVR 15 mL. Recent Microgen results reviewed with the patient today; as noted above. Continue antibiotic therapy as prescribed. Discussed, educated, and stressed the importance of taking medications as prescribed. Continue Estrace cream as prescribed. Will increase Myrbetriq to 50 mg daily as patient reports somewhat improvement in lower urinary tract symptoms with 25 mg of Myrbetriq daily. Discussed UTI prevention with D mannose supplement, vitamin-C, increasing fluid intake, behavioral therapy with timed voiding, perineal hygiene and postcoital voiding, and management of constipation with stool softeners and increased fiber intake. Will arrange for further urodynamics testing; this was discussed at length All questions were answered Follow-up in 3 months with PVR; or sooner with any issues, concerns, and or questions. Orders: Orders AMB Post Void Residual by ultrasound Today N39.0 - Urinary tract infection, site not specified AMB Urinalysis Automated Today Z13.9 - Encounter for screening, unspecified Medications: Changed From mirabegron ER (Myrbetriq) 25 mg PO DAILY 30 days 30 tabs 1RF N30.10 - Interstitial cystitis (chronic) without hematuria, N32.81 - Overactive bladder, R35.1 - Nocturia, R39.15 - Urgency of urination To mirabegron ER (Myrbetriq) 50 mg (2 x 25 mg) PO DAILY 90 days 180 tabs 1RF N30.10 - Interstitial cystitis (chronic) without hematuria, N32.81 - Overactive bladder, R35.1 - Nocturia, R39.15 - Urgency of urination Patient Instructions: The patient had an opportunity to ask questions regarding the treatment plan. All questions were answered. Physical exam, labs, and imaging were discussed and reviewed in detail. As well as risks, benefits, and discussion of treatment choices. No major barriers to understanding were identified. The patient expressed understanding and agreement with the above treatment plan. The patient was made aware they should contact our office by phone for worsening of their current condition, the appearance of new symptoms, or with any questions or concerns. Compliance is encouraged with any medications and follow up testing that is ordered. It is a privilege to be allowed the opportunity to participate in? your urological care.? Again, if you have any questions or concerns If you have any questions or concerns please do not hesitate to contact me. The office is [phone]. This note is constructed using voice recognition software. While every effort has been made to ensure accuracy adzing and boring machine feeder errors may have been included. Yours sincerely, ELISEO Dorsey Coding Level of Care Code Est Pt Level 3 (83842) Diagnoses Recurrent UTI N39.0 Urinary frequency R35.0 Urinary urgency R39.15 Urinary incontinence R32 CPT Codes Post Residual Void - PVR CPT Code: 82785-Qnne Void Residual by ultrasound ([id number])
== END 2023-04-28 12:36 | disposition home or self-care (01) ==
PROVIDERS: PCP Internal Medicine; Visit Provider Nurse Practitioner Family
DX: N39.0 Urinary tract infection, site not specified (principal); R35.0 Frequency of micturition; R39.15 Urgency of urination; R32 Unspecified urinary incontinence
CPT/HCPCS: 99213

== ENCOUNTER → 2023-04-28 11:28 | Outpatient (BNVA) | payer OTHER, SELFPAY | PROVIDERS: PCP Internal Medicine; Visit Provider Nurse Practitioner Family | DX: N39.0 Urinary tract infection, site not specified (principal); R35.0 Frequency of micturition; R39.15 Urgency of urination; R32 Unspecified urinary incontinence | CPT/HCPCS: 51798; 81003; 99212 ==

== ENCOUNTER 2023-07-03 12:45 | Outpatient (AMB) | payer OTHER, SELFPAY ==
[2023-07-03 12:51] VITALS: BP 106/66; BMI 31.0
--- NOTE | 2023-07-03 12:51 | A.OFFPC_ITS ---
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 Required: No Allergies LATEX Allergy (Intermediate, Verified 07/03/23 13:01) rash MOLD Allergy (Intermediate, Verified 07/03/23 13:01) rash NONORGANIC FOOD Allergy (Intermediate, Verified 07/03/23 13:01) diarrhea Yeast Allergy (Intermediate, Verified 07/03/23 13:01) Diarrhea Medication List - Last Reconciled 07/03/23 by Vicky Whitman MD albuterol sulfate 90 mcg/actuation (Proventil HFA) 2 puffs inhalation Q6H PRN ammonium lactate 12% 1 appl topical BID aspirin (Adult Low Dose Aspirin) 81 mg PO DAILY atorvastatin 80 mg PO DAILY [BEDSIDE COMMODE As directed] betamethasone dipropionate 0.05% apply to hands twice daily Breo Ellipta 200-25 mcg/dose (fluticasone furoate-vilanterol) 1 ea PO DAILY NS cholecalciferol (vitamin D3) 25 mcg PO DAILY clonazepam 1 mg PO Q8H [commode As directed] [diabetic shoes As directed] estradiol 0.01%(0.1mg/gram) vaginally 3 times a week; pea sized amount to urethra 3 times a week 30 days ezetimibe (Zetia) 10 mg PO BEDTIME flash glucose scanning reader (EventComboStyle Dany 2 Freer) As directed flash glucose sensor (FreeStyle Dany 2 Sensor kit) As directed fluticasone furoate-vilanterol 200-25 mcg/dose (Breo Ellipta) 1 inh inhalation DAILY 90 days fluticasone propionate 50 mcg/actuation 2 sprays intranasal DAILY gabapentin 100 mg PO BEDTIME hydrocortisone 2.5% (Proctosol HC) 1 appl [place] BID-QID PRN incontinence pad, liner, disp 8 pads per day [id number] Contour Plus BC pad , Inco, Max, swo incontinence pad, liner, disp As directed [incontinent wipes As directed] lactulose 15 mL PO DAILY PRN levothyroxine 100 mcg PO DAILY lisinopril 30 mg PO DAILY 90 days metformin 500 mg PO BID 30 days metoprolol succinate ER 25 mg PO DAILY mirabegron ER (Myrbetriq) 25 mg PO DAILY 90 days miscellaneous medical supply As directed nitroglycerin 0.4 mg sublingual Q5M PRN 30 days nystatin (Nystop) 1 appl topical BID nystatin 2 mL PO TID 15 days oxycodone 5 mg PO BID 30 days [Pad bladder ultra As directed 4 times day ] tafluprost (PF) 0.0015% (Zioptan (PF)) 1 drp ophthalmic (eye) QPM timolol maleate (PF) 0.5% 1 drp ophthalmic (eye) BID [WIPES As directed] Tobacco use date assessed: 07/03/23 Fall risk assessment: No Falls in past year Last assessed Fall Risk: 07/03/23 Dental Screening Dental Screen Date: 07/03/23 Did you have a dental visit in the last 12 months?: No Did you have a dental problem in the last 6 months where you did not have access to dental care?: No HPI DM HPI Details 68-year-old obese female smoker with a h istory of diabetes mellitus hypertension hypothyroidism hypercholesterolemia coronary artery disease COPD GERD and generalized anxiety disorder last seen in March 2023. Patient is here for follow-up. Colonoscopy up-to-date September 2021 mammogram is so up-to-date. Review of the notes follows up with urology due to frequency recurrent UTI placed on Estrace cream, Myrbetriq 50 mg once a day was given Dmannose vitamin- C. still 2 a day asking for leg exercise to help with activity no nausea no v omiting no chest pains no shortness a breath PFSH Medical History Thrush, oral Allergic rhinitis Franky's disease Goiter diffuse Cataract Glaucoma Tobacco abuse Type 2 diabetes mellitus with hyperglycemia Anxiety and depression GERD (gastroesophageal reflux disease) Obesity (BMI 30-39.9) COPD (chronic obstructive pulmonary disease) Coronary artery disease Carpal tunnel syndrome Hypercholesterolemia Hypothyroid Hypertension Surgical History Hx of section History of tubal ligation Family History Father Myocardial infarct Maternal Grandmother Breast cancer Mother Pancreatic cancer Sister Bipolar 1 disorder Other Mental problem Social History Household Members: Family Housing: House Do you presently have visiting nurse or other home services: No Alcohol intake: current Alcohol intake frequency: holidays/special occasions only Patient Tobacco Use Status: Current everyday Tobacco user Tobacco use type: Cigarette Cigarettes Per Day: 4 Years Smoked: 4 cigarettes a day Packs per year/per ci.00 e-Cigarette/Vaping Use: Currently Using Advance Directives Date on File: 03/21/22 service: No Current occupational status: disabled Cognitive needs: No Hearing needs: No Vision needs: Yes Questionnaire PHQ-9 Over the last 2 weeks, how often have you been bothered by any of the following problems? 1. Little interest or pleasure in doing things: several days 2. Feeling down, depressed, or hopeless: several days 3. Trouble falling or staying asleep, or sleeping too much: several days 4. Feeling tired or having little energy: several days 5. Poor appetite or overeating: not at all 6. Feeling bad about yourself - or that you are a failure or have let yourself or your family down: not at all 7. Trouble concentrating on things, such as reading the newspaper or watching television: not at all 8. Moving or speaking so slowly that other people could have noticed. Or the opposite - being so fidgety or restless that you have been moving around a lot more than usual: not at all 9. Thoughts that you would be better off or of hurting yourself in some way: not at all Total score: 4 Depression Screening Interpretation: Positive Depression Screening Done: Yes Source: Developed by Drs. Ras Asif, Kim Jones, Dyllan Norris and colleagues, with an educational kosta from [employer]. Thrive Questionnaire Date Thrive assessed: 07/03/23 I am a: Patient What is your living situation today?: I have a steady place to live Within the past 12 months, did the food you bought not last and you didn't have the money to get more?: Never true Within the past 12 months, did you worry whether your food would run out before you got money to buy more?: Never true Do you have trouble paying for medicines?: No Do you have trouble getting transportation to medical appointments?: No Do you have trouble paying your heating and electricity bill?: No Do you have trouble taking care of your child, family member or friend?: No Do you have trouble with day-to-day activities such as bathing, preparing meals, shopping, managing finances, etc.?: No Are you currently unemployed and looking for a job?: No Are you interested in more education?: No Please select the resources that you would like help with: None THRIVE Score: 0 AUDIT C Alcohol Use Questionnaire (AUDIT-C) 1. How often do you have a drink containing alcohol?: Never 2. How many drinks containing alcohol do you have on a typical day when you are drinking?: 1 or 2 3. How often do you have six or more drinks on one occasion?: Never Total Score: 0 RYLAN-7 AMB Questionnaire RYLAN-7 Date RYLAN - 7 assessed: 07/03/23 Feeling nervous, anxious, or on edge: 0 = Not at all Not being able to stop or control worryin = Not at all Worrying too much about different things: 0 = Not at all Trouble relaxin = Not at all Being so restless that it is hard to sit still: 0 = Not at all Becoming easily annoyed or irritable: 0 = Not at all Feeling afraid as if something awful might happen: 0 = Not at all Total RYLAN-7 score (0-4 normal; 5-9 mild; 10-14 moderate; 15-21 severe): 0 Source: Developed by Drs. Ras Asif, Kim Jones, Dyllan ortega nd colleagues, with an educational kosta from [employer]. Physical exam (Primary Care) Vital Signs: Last Vital Signs BP 106/66 07/03/23 12:51 Oxygen Delivery Method Room Air 07/03/23 12:51 BMI result Body Mass Index 31.0 Tobacco/Smoking Status: Tobacco use Status Tobacco use date assessed 07/03/23 07/03/23 12:54 Patient Tobacco Use Status Current everyday Tobacco 07/03/23 12:54 Tobacco use type Cigarette 07/03/23 12:54 e-Cigarette/Vaping Use Currently Using 07/03/23 12:54 PHQ-9: PHQ-9 Score PHQ-9: Total score 4 07/03/23 13:07 Depression Screening Interpretation: Positive Thrive Assessment: Date of Thrive Assessment Date Thrive assessed 07/03/23 07/03/23 12:54 Const General: alert; No acute distress Eyes Conjunctivae: conjunctivae normal Resp Auscultation: clear to auscultation bilaterally Cardio Rate: regular rate Rhythm: regular rhythm GI Inspection: Yes normal to inspection Extrem General: Yes normal to inspection and No edema Results AMB Hemoglobin A1c AMB Hemoglobin A1c 6.9 % Last Edit by SANAM Butt on 07/03/23 13:07 Results Reviewed Results Reviewed: Laboratory Last Values Hgb A1c (Clinic) 6.9 % (4.0-6.0) H 07/03/23 09:29 Assessment and Plan Assessment & Plan (1) Type 2 diabetes mellitus with hyperglycemia: Comment: Dr. Mujica and Dr. Zaldivar Code(s): E11.65 - Type 2 diabetes mellitus with hyperglycemia Qualifiers: Diabetes mellitus detention insulin use: without detention use Qualified Code(s): E11.65 - Type 2 diabetes mellitus with hyperglycemia Plan: Decrease the amount of carbohydrate intake, pasta, bread, rice and potatoes are all sugar and that is aside from all the sweet stuff, remember that fruits are good but they are Sweet also. Hemoglobin A1c goal of less than 7.0 patient on metformin 500 mg twice a day (2) Coronary artery disease: Comment: Echo April 2019 normal LV Pseudonormal filling, pericardial effusion July 2019 moderate pericardial effusion PCI done [facility] June 2015 Code(s): I25.10 - Atherosclerotic heart disease of [place] coronary artery without angina pectoris Qualifiers: Coronary Disease-Associated Artery/Lesion type: [place] artery [place] vs. transplanted heart: [place] heart Associated angina: without angina Qualified Code(s): I25.10 - Atherosclerotic heart disease of [place] coronary artery without angina pectoris Plan: Control the cholesterol, weight, blood pressure, diabetes (3) Hypercholesterolemia: Code(s): E78.00 - Pure hypercholesterolemia, unspecified Plan: Aspirin once a day Avoid fried foods, chicken skin, eggs, butter margarine, pastries and meat. Be it pork or beef they have a lot of cholesterol LDL goal of less than 100 and triglyceride of less than 150. On Zetia and atorvastatin 80 mg once a day (4) Obesity (BMI 30-39.9): Code(s): E66.9 - Obesity, unspecified Plan: Diet and exercise (5) Tobacco abuse: Comment: SHE CONTINUES TO SMOKE ABOUT 4-5 CIGARETTES A DAY. COUNSELED THAT SHE SHOULD STOP SMOKING COMPLETELY . . HER COUGH AND CONGESTED FEELING IN THE UPPER AIRWAYS IS MOSTLY SECONDARY TO SMOKING. Code(s): Z72.0 - Tobacco use Plan: Patient is strongly advised to stop smoking! (6) COPD (chronic obstructive pulmonary disease): Comment: Chronic, mild to moderate COPD, and she also has moderate degree of restrictive disorder. Overall it is staying stable. [place] : Continue Breo -200 1 inhalation daily. Rinse the throat very thoroughly after using Breo. And use Proventil HFA 2 puffs Q 4-6 hours only p.r.n. Code(s): J44.9 - Chronic obstructive pulmonary disease, unspecified Qualifiers: COPD type: emphysema Emphysema type: unspecified Qualified Code(s): J43.9 - Emphysema, unspecified Plan: Stop smoking! Continue with the inhalers (7) GERD (gastroesophageal reflux disease): Code(s): K21.9 - Gastro-esophageal reflux disease without esophagitis Qualifiers: Esophagitis presence: without esophagitis Qualified Code(s): K21.9 - Gastro-esophageal reflux disease without esophagitis Plan: Stop smoking! Avoid the foods that causes that usually spicy foods, tomato products, juices, coffee, soda and foods that your sensitive to. After eating do not lie down, allow 3-4 hours before in lie down. And keep the head of bed above 30 degrees to avoid the acid from going up. (8) Hypothyroid: Code(s): E03.9 - Hypothyroidism, unspecified Qualifiers: Hypothyroidism type: acquired Qualified Code(s): E03.9 - Hypothyroidism, unspecified Plan: Continue with thyroid medication (9) Hypertension: Code(s): I10 - Essential (primary) hypertension Qualifiers: Hypertension type: essential hypertension Qualified Code(s): I10 - Essential (primary) hypertension Plan: Continue with blood pressure medication. Decrease salt intake and exercise takes lisinopril 30 mg once a day metoprolol 25 mg once a day (10) Recurrent UTI: Code(s): N39.0 - Urinary tract infection, site not specified Plan: Patient follows up with urology (11) Generalized anxiety disorder: Comment: Living [facility] counselling Code(s): F41.1 - Generalized anxiety disorder Plan: Continue counseling and therapy Orders: Orders AMB Hemoglobin A1c Today E11.65 - Type 2 diabetes mellitus with hyperglycemia XR DEXA axial skeleton Today E83.52 - Hypercalcemia, M81.0 - Age-related osteoporosis without current pathological fracture Medications: New flash glucose scanning reader (FreeStyle Dany 2 Freer) As directed 1 ea 0RF E11.65 - Type 2 diabetes mellitus with hyperglycemia flash glucose sensor (FreeStyle Dany 2 Sensor kit) As directed 6 kits 0RF E11.65 - Type 2 diabetes mellitus with hyperglycemia Coding Level of Care Code Est Pt Level 4 (35696) Diagnoses Type 2 diabetes mellitus with hyperglycemia, without long-term current use of insulin E11.65 Diabetes mellitus [place] insulin use: without detention use Coronary artery disease involving [place] coronary artery of [place] heart without angina pectoris I25.10 Coronary Disease-Associated Artery/Lesion type: [place] artery [place] vs. transplanted heart: [place] heart Associated angina: without angina Hypercholesterolemia E78.00 Obesity (BMI 30-39.9) E66.9 Tobacco abuse Z72.0 Pulmonary emphysema, unspecified emphysema type J43.9 COPD type: emphysema Emphysema type: unspecified Gastroesophageal reflux disease without esophagitis K21.9 Esophagitis presence: without esophagitis Acquired hypothyroidism E03.9 Hypothyroidism type: acquired Essential hypertension I10 Hypertension type: essential hypertension Recurrent UTI N39.0 Generalized anxiety disorder F41.1
== END 2023-07-03 13:32 | disposition home or self-care (01) ==
PROVIDERS: PCP Internal Medicine; Visit Provider Internal Medicine
DX: E11.65 Type 2 diabetes mellitus with hyperglycemia (principal); J43.9 Emphysema, unspecified; I25.10 Atherosclerotic heart disease of native coronary artery without angina pectoris; E78.00 Pure hypercholesterolemia, unspecified; E66.9 Obesity, unspecified; Z72.0 Tobacco use; K21.9 Gastro-esophageal reflux disease without esophagitis; E03.9 Hypothyroidism, unspecified; I10 Essential (primary) hypertension; N39.0 Urinary tract infection, site not specified; F41.1 Generalized anxiety disorder
CPT/HCPCS: 83036; 99214

== ENCOUNTER 2023-07-28 12:45 | Outpatient (AMB) | payer OTHER, SELFPAY ==
--- NOTE | 2023-07-28 13:11 | MHC.OFFVIS ---
Intake Intake Visit Reasons: 3m follow up Intake Note: Patient presents today for follow-up Meds- Estradiol, Myrbetriq Allergies to Antibiotic- No Known Allergies Blood Thinner- Aspirin Post Void Residual:0ml Care Director Required: No Accompanied by: Self / Same As Patient Allergies LATEX Allergy (Intermediate, Verified 07/28/23 21:04) rash MOLD Allergy (Intermediate, Verified 07/28/23 21:04) rash NONORGANIC FOOD Allergy (Intermediate, Verified 07/28/23 21:04) diarrhea Yeast Allergy (Intermediate, Verified 07/28/23 21:04) Diarrhea Medication List - Last Reconciled 07/28/23 by JUSTO Dorsey-MAXIM albuterol sulfate 90 mcg/actuation (Proventil HFA) 2 puffs inhalation Q6H PRN ammonium lactate 12% 1 appl topical BID aspirin (Adult Low Dose Aspirin) 81 mg PO DAILY atorvastatin 80 mg PO DAILY [BEDSIDE COMMODE As directed] betamethasone dipropionate 0.05% apply to hands twice daily Breo Ellipta 200-25 mcg/dose (fluticasone furoate-vilanterol) 1 ea PO DAILY NS cholecalciferol (vitamin D3) 25 mcg PO DAILY clonazepam 1 mg PO Q8H [commode As directed] [diabetic shoes As directed] estradiol 0.01%(0.1mg/gram) vaginally 3 times a week; pea sized amount to urethra 3 times a week 30 days ezetimibe (Zetia) 10 mg PO BEDTIME flash glucose scanning reader ([employer] Dany 2 [place]) As directed flash glucose sensor (FreeStyle Dany 2 Sensor kit) As directed fluticasone furoate-vilanterol 200-25 mcg/dose (Breo Ellipta) 1 inh inhalation DAILY 90 days fluticasone propionate 50 mcg/actuation 2 sprays intranasal DAILY gabapentin 100 mg PO BEDTIME hydrocortisone 2.5% (Proctosol HC) 1 appl [place] BID-QID PRN incontinence pad, liner, disp 8 pads per day [id number] Contour Plus BC pad , Inco, Max, swo incontinence pad, liner, disp As directed [incontinent wipes As directed] lactulose 15 mL PO DAILY PRN levothyroxine 100 mcg PO DAILY lisinopril 30 mg PO DAILY 90 days metformin 500 mg PO BID 30 days metoprolol succinate ER 25 mg PO DAILY mirabegron ER (Myrbetriq) 25 mg PO DAILY 90 days miscellaneous medical supply As directed nitroglycerin 0.4 mg sublingual Q5M PRN 30 days nystatin (Nystop) 1 appl topical BID nystatin 2 mL PO TID 15 days oxycodone 5 mg PO BID 30 days [Pad bladder ultra As directed 4 times day ] tafluprost (PF) 0.0015% (Zioptan (PF)) 1 drp ophthalmic (eye) QPM timolol maleate (PF) 0.5% 1 drp ophthalmic (eye) BID [WIPES As directed] HPI HPI Comments History of Present Illness Details Pina is a pleasant 68-year-old female patient of Dr. Whitman. She has a past medical history of type 2 diabetes, anxiety, depression, GERD, COPD, hypercholesteremia, hypothyroid, hypertension, and bilateral hip joint arthritis. She presents to the office today for follow-up of her recurrent urinary tract infections and lower urinary tract symptoms. Previous workup has included a retroperitoneal ultrasound noting bilateral kidneys with no hydronephrosis or renal calculi limited visualization. Pre void bladder volume is approximately 160 mL. Postvoid bladder volume is approximately 60 mL. In discussion with the patient today she reports having sustained a fall at home approximately 2 weeks ago in shortly thereafter she started experiencing lower urinary tract symptoms of urinary urgency, urinary frequency, and cloudy urine. She reports having started left over Bactrim prescription she had at home. She also reports not having utilize her Estrace cream as she felt symptoms were much more improved. Discussed at length importance of taking medications as prescribed. Discussed importance of calling office with UTI like symptoms to further assess and evaluate. This was discussed at length. She currently feels urinary symptoms have since subsided. She reports previous to her fall approximately 2 weeks ago she did have improvement in her mixed urinary incontinence and felt she was using less incontinent pads. She has trialed oxybutynin, tolterodine, and Toviaz in the past with no improvement in lower urinary tract symptoms. Patient with previous UTI treatment with [facility]. She reports feeling the best she has felt in a long time with regards to her urinary issues. She currently denies any bothersome urinary issues or concerns. She denies any UTI like symptoms. In office urinalysis results reviewed with the patient today. PVR 0ml's. She otherwise denies hematuria, foul smelling urine, changes to urinary stream, flank pain, fever, and or chills. Discussed further assessment evaluation with urodynamics given patient's history of multiple failed overactive bladder medications. She discusses finding it difficult to keep her scheduled appointments due to her transportation issues. [facility] Medical History Thrush, oral Allergic rhinitis Franky's disease Goiter diffuse Cataract Glaucoma Tobacco abuse Type 2 diabetes mellitus with hyperglycemia Anxiety and depression GERD (gastroesophageal reflux disease) Obesity (BMI 30-39.9) COPD (chronic obstructive pulmonary disease) Coronary artery disease Carpal tunnel syndrome Hypercholesterolemia Hypothyroid Hypertension Surgical History Hx of section History of tubal ligation Family History Father Myocardial infarct Maternal Grandmother Breast cancer Mother Pancreatic cancer Sister Bipolar 1 disorder Other Mental problem Social History Household Members: Family Housing: House Do you presently have visiting nurse or other home services: No Alcohol intake: current Alcohol intake frequency: holidays/special occasions only Patient Tobacco Use Status: Current everyday Tobacco user Tobacco use type: Cigarette Cigarettes Per Day: 4 Years Smoked: 4 cigarettes a day e-Cigarette/Vaping Use: Currently Using Advance Directives Date on File: 03/21/22 service: No Current occupational status: disabled Cognitive needs: No Hearing needs: No Vision needs: Yes Review of Systems Const Reports as per [facility] Eyes Reports no additional complaints ENT Reports no additional complaints Card Reports as per [facility] Resp Reports as per [facility] GI Reports as per [facility] Reports as per [facility] Musc Reports as per [facility] Neuro Reports no additional complaints Psych Reports as per [facility] Endo Reports as per [facility] Physical Exam Const General: cooperative, healthy appearing, comfortable, no acute distress, well developed, alert and awake Orientation/consciousness: patient oriented x3 Limitations: ambulation with cane HEENT Head: Yes normal to inspection, Yes normocephalic and Yes atraumatic Ears: hearing grossly normal bilaterally Eyes General: appearance normal, both eyes and all related structures Neck Neck: Yes normal visual inspection and Yes trachea midline Chest Chest palpation & inspection: normal inspection of the chest Resp Effort & Inspection: normal respiratory effort and able to speak in complete sentences Cardio Rate: regular rate GI Inspection: Yes normal to inspection General: Yes no CVA tenderness Back/Spine/Pelvis Back: no CVA tenderness Skin General skin exam: no rashes or lesions noted Neuro General: patient oriented x3 Extrem General: Yes normal to inspection Psych Appearance: grossly normal and well kempt Mental Status: mental status grossly normal Speech and movement: Normal speech and movement present and Clear speech present Affect: normal affect Attitude: cooperative Thought process: Normal thought process present Thought content: Normal thought content present Insight: Fair insight present (Psych) Judgement: Fair judgement present (Psych) Office Procedures Post Void Residual Post Residual Void Post Void Residual (PVR): [id number] Void Residual by ultrasound Results AMB Urinalysis, Automated UA Leukoctes 70 Ivette/uL Last Edit by Teresita Hall CMA on 07/28/23 13:33 UA Nitrite Negative Last Edit by Teresita Hall CMA on 07/28/23 13:33 UA Urobilinogen 0.2 mg/dL Last Edit by Teresita Hall CMA on 07/28/23 13:33 UA Protein 0 mg/dL Last Edit by Teresita Hall CMA on 07/28/23 13:33 UA pH 6.0 Last Edit by Teresita Hall CMA on 07/28/23 13:33 UA Blood 0 Jordan/uL Last Edit by Teresita Hall CMA on 07/28/23 13:33 UA Specific [place] 1.010 Last Edit by Teresita Hall CMA on 07/28/23 13:33 UA Ketone Negative Last Edit by Teresita Hall CMA on 07/28/23 13:33 UA Bilirubin 0 mg/dL Last Edit by Teresita Hall CMA on 07/28/23 13:33 UA Glucose 0 mg/dL Last Edit by Teresita Hlal [facility] on 07/28/23 13:33 Results Reviewed Results Reviewed: Laboratory Last Values Urine pH (Auto) 6.0 07/28/23 13:32 Specific [place] (Auto) 1.010 07/28/23 13:32 Urine Protein (Auto) 0 mg/dL 07/28/23 13:32 Glucose (UA)(Auto) 0 mg/dL 07/28/23 13:32 Urine Ketones (Auto) Negative 07/28/23 13:32 Urine Blood (Auto) 0 Jordan/uL 07/28/23 13:32 Urine Nitrite (Auto) Negative 07/28/23 13:32 Urine Bilirubin (Auto) 0 mg/dL 07/28/23 13:32 Urine Urobilinogen (Auto) 0.2 mg/dL 07/28/23 13:32 Leukocyte Esterase (Auto) 70 Ivette/uL 07/28/23 13:32 Assessment & Plan Assessment & Plan (1) Recurrent UTI: Code(s): N39.0 - Urinary tract infection, site not specified (2) Urinary frequency: Code(s): R35.0 - Frequency of micturition (3) Urinary urgency: Code(s): R39.15 - Urgency of urination (4) Urinary incontinence: Code(s): R32 - Unspecified urinary incontinence Plan In office urinalysis results reviewed with the patient today; as noted above. PVR 0ml. Discussed, educated, and stressed the importance of taking medications as prescribed as well as completing course of antibiotics when they are prescribed. Continue Estrace cream as prescribed. Will increase Myrbetriq to 50 mg daily as patient reports somewhat improvement in lower urinary tract symptoms with 25 mg of Myrbetriq daily. Discussed UTI prevention with D mannose supplement, vitamin-C, increasing fluid intake, behavioral therapy with timed voiding, perineal hygiene and postcoital voiding, and management of constipation with stool softeners and increased fiber intake. Will arrange for further urodynamics testing; added to list on 05/09 All questions were answered Follow-up in one month with PVR; or sooner with any issues, concerns, and or questions; discussed follow-up via telehealth or office depending on if patient has UTI like symptoms. Orders: Orders AMB Post Void Residual by ultrasound Today R33.9 - Retention of urine, unspecified AMB Urinalysis Automated Today R33.9 - Retention of urine, unspecified Medications: Changed From mirabegron ER (Myrbetriq) 25 mg PO DAILY 90 days 90 tabs 1RF N30.10 - Interstitial cystitis (chronic) without hematuria, N32.81 - Overactive bladder, R35.1 - Nocturia, R39.15 - Urgency of urination To mirabegron ER (Myrbetriq) 50 mg (2 x 25 mg) PO DAILY 180 tabs 1RF 90 days N30.10 - Interstitial cystitis (chronic) without hematuria, N32.81 - Overactive bladder, R35.1 - Nocturia, R39.15 - Urgency of urination Patient Instructions: The patient had an opportunity to ask questions regarding the treatment plan. All questions were answered. Physical exam, labs, and imaging were discussed and reviewed in detail. As well as risks, benefits, and discussion of treatment choices. No major barriers to understanding were identified. The patient expressed understanding and agreement with the above treatment plan. The patient was made aware they should contact our office by phone for worsening of their current condition, the appearance of new symptoms, or with any questions or concerns. Compliance is encouraged with any medications and follow up testing that is ordered. It is a privilege to be allowed the opportunity to participate in? your urological care.? Again, if you have any questions or concerns If you have any questions or concerns please do not hesitate to contact me. The office is [phone]. This note is constructed using voice recognition software. While every effort has been made to ensure accuracy rn ent errors may have been included. Yours sincerely, JUSTO Dorsey-MAXIM Coding Level of Care Code Est Pt Level 4 (84433) Diagnoses Recurrent UTI N39.0 Urinary frequency R35.0 Urinary urgency R39.15 Urinary incontinence R32 CPT Codes Post Residual Void - PVR CPT Code: 01338-Tpxr Void Residual by ultrasound ([id number]) Time Spent (min) 35
== END 2023-07-28 13:45 | disposition home or self-care (01) ==
PROVIDERS: PCP Internal Medicine; Visit Provider Nurse Practitioner Family
DX: N39.0 Urinary tract infection, site not specified (principal); R35.0 Frequency of micturition; R39.15 Urgency of urination; R32 Unspecified urinary incontinence
CPT/HCPCS: 99214

== ENCOUNTER → 2023-07-28 12:45 | Outpatient (BNVA) | payer OTHER, SELFPAY | PROVIDERS: PCP Internal Medicine; Visit Provider Nurse Practitioner Family | DX: N39.0 Urinary tract infection, site not specified (principal); R35.0 Frequency of micturition; R39.15 Urgency of urination; R32 Unspecified urinary incontinence | CPT/HCPCS: 51798; 81003; 99212 ==

== ENCOUNTER 2023-08-11 13:32 | Outpatient (AMB) | payer OTHER, SELFPAY ==
[2023-08-11 13:42] VITALS: BP 120/60; PULSE 70; O2SAT 99; BMI 31.9
--- NOTE | 2023-08-11 13:42 | MHC.OFFVIS ---
Intake Vital Signs 08/11/23 13:42 Height 5 ft 1 in Weight 168 lb 10.458 oz BMI 31.9 BP 120/60 Blood Pressure Location Lt brachial Position Sitting Pulse 70 Pulse Source Pulse Oximeter Pulse Oximetry (%) 99 Oxygen Delivery Method Room Air Intake Visit Reasons: COPD Intake Note: pt is here for follow up and states her breathing is good, hoping to have hip replacement in the near future. Waist Fitter Required: No Allergies LATEX Allergy (Intermediate, Verified 08/11/23 14:01) rash MOLD Allergy (Intermediate, Verified 08/11/23 14:01) rash NONORGANIC FOOD Allergy (Intermediate, Verified 08/11/23 14:01) diarrhea Yeast Allergy (Intermediate, Verified 08/11/23 14:01) Diarrhea Medication List - Last Reconciled 08/11/23 by Linwood Orozco MD albuterol sulfate 90 mcg/actuation (Proventil HFA) 2 puffs inhalation Q6H PRN ammonium lactate 12% 1 appl topical BID aspirin (Adult Low Dose Aspirin) 81 mg PO DAILY atorvastatin 80 mg PO DAILY [BEDSIDE COMMODE As directed] betamethasone dipropionate 0.05% apply to hands twice daily Breo Ellipta 200-25 mcg/dose (fluticasone furoate-vilanterol) 1 ea PO DAILY NS cholecalciferol (vitamin D3) 25 mcg PO DAILY clonazepam 1 mg PO Q8H [commode As directed] [diabetic shoes As directed] estradiol 0.01%(0.1mg/gram) vaginally 3 times a week; pea sized amount to urethra 3 times a week 30 days ezetimibe (Zetia) 10 mg PO BEDTIME flash glucose scanning reader ([employer] Dany 2 [place]) As directed flash glucose sensor (FreeStyle Dany 2 Sensor kit) As directed fluticasone propionate 50 mcg/actuation 2 sprays intranasal DAILY gabapentin 100 mg PO BEDTIME hydrocortisone 2.5% (Proctosol HC) 1 appl [place] BID-QID PRN incontinence pad, liner, disp 8 pads per day [id number] Contour Plus BC pad , Inco, Max, swo incontinence pad, liner, disp As directed [incontinent wipes As directed] lactulose 15 mL PO DAILY PRN levothyroxine 100 mcg PO DAILY lisinopril 30 mg PO DAILY 90 days metformin 500 mg PO BID 30 days metoprolol succinate ER 25 mg PO DAILY mirabegron ER (Myrbetriq) 50 mg (2 x 25 mg) PO DAILY 90 days miscellaneous medical supply As directed nitroglycerin 0.4 mg sublingual Q5M PRN 30 days nystatin (Nystop) 1 appl topical BID nystatin 2 mL PO TID 15 days oxycodone 5 mg PO BID 30 days [Pad bladder ultra As directed 4 times day ] tafluprost (PF) 0.0015% (Zioptan (PF)) 1 drp ophthalmic (eye) QPM timolol maleate (PF) 0.5% 1 drp ophthalmic (eye) BID [WIPES As directed] Do you need a note to return to daycare/school/sports/work: No HPI COPD HPI Details Pina, is now 68 years old female, with history of longstanding chronic obstructive pulmonary disease. She is here for 6 months follow-up. Breathing wade has remained very stable without any acute exacerbations. She is prone to have oral thrush off and on and uses nystatin suspension with good response. Most of the discussion today was bout degenerative arthritis of the hips and difficulty in walking . She has also had recurrent UTIs and urinary incontinence and is being followed by urology service. [facility] Medical History Thrush, oral Allergic rhinitis Franky's disease Goiter diffuse Cataract Glaucoma Tobacco abuse Type 2 diabetes mellitus with hyperglycemia Anxiety and depression GERD (gastroesophageal reflux disease) Obesity (BMI 30-39.9) COPD (chronic obstructive pulmonary disease) Coronary artery disease Carpal tunnel syndrome Hypercholesterolemia Hypothyroid Hypertension Surgical History Hx of section History of tubal ligation Family History Father Myocardial infarct Maternal Grandmother Breast cancer Mother Pancreatic cancer Sister Bipolar 1 disorder Other Mental problem Social History Household Members: Family Housing: House Do you presently have visiting nurse or other home services: No Alcohol intake: current Alcohol intake frequency: holidays/special occasions only Patient Tobacco Use Status: Current everyday Tobacco user Tobacco use type: Cigarette Cigarettes Per Day: 4 Years Smoked: 4 cigarettes a day e-Cigarette/Vaping Use: Currently Using Advance Directives Date on File: 03/21/22 service: No Current occupational status: disabled Cognitive needs: No Hearing needs: No Vision needs: Yes Review of Systems Const All systems reviewed & are unremarkable except as noted in HPI and below (I also reviewed PFSH .) Eyes Reports no additional complaints ENT Reports nasal congestion and Reports nasal discharge Card Denies chest pain, Denies irregular heart rhythm and Denies leg edema Resp Reports as per HPI GI Reports no additional complaints Reports no additional complaints Musc Reports back pain (Mild to moderate off and on) Skin/Breast Reports system reviewed and no additional complaints, except as documented Neuro Reports no additional complaints Psych Reports anxiety Endo Reports no additional complaints Physical Exam Vital Signs: Last Vital Signs Pulse 70 08/11/23 13:42 BP 120/60 08/11/23 13:42 Pulse Ox 99 08/11/23 13:42 Oxygen Delivery Method Room Air 08/11/23 13:42 BMI result Body Mass Index 31.9 Const General: comfortable, no acute distress, alert and awake Orientation/consciousness: patient oriented x3 HEENT Head: Yes normal to inspection General nose exam: No nasal polyps present, No nasal discharge present and Other nasal findings present (Bilateral nasal congestion) Face and sinus: Yes sinuses nontender Mouth: oropharynx normal (No ulcers of or mucosal white spots were noted.) Eyes General: appearance normal, both eyes and all related structures Neck Neck: Yes normal visual inspection, Yes no lymphadenopathy, Yes trachea midline and Yes no JVD Thyroid: Thyroid normal Chest Chest palpation & inspection: normal inspection of the chest, normal palpation of entire chest wall and no tenderness Resp Other: Percussion note resonant, breath sounds are slightly distant with prolonged expiratory phase I did not hear any wheezes rhonchi or crepitations today. Cardio Palpation: normal PMI Rate: regular rate Rhythm: regular rhythm Heart sounds: no gallops and no murmurs GI Palpation (GI): Soft to palpation, nontender, No hepatosplenomegaly present and no masses Auscultation: normal bowel sounds Back/Spine/Pelvis Thoracic/Lumbar Spine: thoracic and lumbar spine normal to inspection, thoraco-lumbar ROM limited and thoraco-lumbar spasm Skin General skin exam: no rashes or lesions noted Neuro General: patient oriented x3 and no focal motor deficits Cranial nerves: Yes CN's II-XII intact bilaterally Extrem General: Yes normal to inspection, Yes no clubbing, cyanosis or edema and Yes no calf tenderness Psych Appearance: grossly normal and well kempt Speech and movement: Normal speech and movement present Assessment & Plan Assessment & Plan (1) COPD (chronic obstructive pulmonary disease): Comment: Chronic, mild to moderate COPD, and she also has moderate degree of restrictive disorder. Overall it is staying stable. T Code(s): J44.9 - Chronic obstructive pulmonary disease, unspecified Qualifiers: COPD type: emphysema Emphysema type: unspecified Qualified Code(s): J43.9 - Emphysema, unspecified Plan: X : Continue Breo -200 1 inhalation daily. Rinse the throat very thoroughly after using Breo. And use Proventil HFA 2 puffs Q 4-6 hours only p.r.n. (2) Allergic rhinitis: Comment: She has nasal congestion almost on a daily basis. Code(s): J30.9 - Allergic rhinitis, unspecified Plan: I advised to use Flonase 2 spray each nostril daily. And may use Claritin 10 mg once a day p.r.n.. Coding Level of Care Code Est Pt Level 3 (09279) Diagnoses Pulmonary emphysema, unspecified emphysema type J43.9 COPD type: emphysema Emphysema type: unspecified Allergic rhinitis J30.9
== END 2023-08-11 14:04 | disposition home or self-care (01) ==
PROVIDERS: PCP Internal Medicine; Visit Provider Internal Medicine
DX: J43.9 Emphysema, unspecified (principal); J30.9 Allergic rhinitis, unspecified
CPT/HCPCS: 99213

== ENCOUNTER → 2023-08-11 13:32 | Outpatient (BNVA) | payer OTHER, SELFPAY | PROVIDERS: PCP Internal Medicine; Visit Provider Internal Medicine | DX: Z01.810 Encounter for preprocedural cardiovascular examination (principal); M79.604 Pain in right leg; M79.605 Pain in left leg; I25.10 Atherosclerotic heart disease of native coronary artery without angina pectoris; J43.9 Emphysema, unspecified; J30.9 Allergic rhinitis, unspecified | CPT/HCPCS: 93005; 99212 ==

== ENCOUNTER 2023-08-11 14:23 | Outpatient (AMB) | payer OTHER, SELFPAY ==
[2023-08-11 14:42] VITALS: BP 124/70; PULSE 64; BMI 31.7
--- NOTE | 2023-08-11 14:42 | A.OFFVIS_ITS ---
Intake Vital Signs 08/11/23 14:42 Height 5 ft 1 in Weight 167 lb 8.821 oz BMI 31.7 BP 124/70 Blood Pressure Location Lt brachial Position Sitting Pulse 64 Intake Visit Reasons: r/s 1 year followup w/ekg Intake Note: 1 year follow-up with ekg hearts ok Internet Marketer Required: No Allergies LATEX Allergy (Intermediate, Verified 08/11/23 14:01) rash MOLD Allergy (Intermediate, Verified 08/11/23 14:01) rash NONORGANIC FOOD Allergy (Intermediate, Verified 08/11/23 14:01) diarrhea Yeast Allergy (Intermediate, Verified 08/11/23 14:01) Diarrhea Medication List - Last Reconciled 08/11/23 by Alli Hayes MD albuterol sulfate 90 mcg/actuation (Proventil HFA) 2 puffs inhalation Q6H PRN ammonium lactate 12% 1 appl topical BID aspirin (Adult Low Dose Aspirin) 81 mg PO DAILY atorvastatin 80 mg PO DAILY [BEDSIDE COMMODE As directed] betamethasone dipropionate 0.05% apply to hands twice daily Breo Ellipta 200-25 mcg/dose (fluticasone furoate-vilanterol) 1 ea PO DAILY NS cholecalciferol (vitamin D3) 25 mcg PO DAILY clonazepam 1 mg PO Q8H [commode As directed] [diabetic shoes As directed] estradiol 0.01%(0.1mg/gram) vaginally 3 times a week; pea sized amount to urethra 3 times a week 30 days ezetimibe (Zetia) 10 mg PO BEDTIME flash glucose scanning reader ([employer] Dany 2 [place]) As directed flash glucose sensor ([employer]Style Dany 2 Sensor kit) As directed fluticasone propionate 50 mcg/actuation 2 sprays intranasal DAILY gabapentin 100 mg PO BEDTIME hydrocortisone 2.5% (Proctosol HC) 1 appl DC BID-QID PRN incontinence pad, liner, disp 8 pads per day [id number] Contour Plus BC pad , Inco, Max, swo incontinence pad, liner, disp As directed [incontinent wipes As directed] lactulose 15 mL PO DAILY PRN levothyroxine 100 mcg PO DAILY lisinopril 30 mg PO DAILY 90 days metformin 500 mg PO BID 30 days metoprolol succinate ER 25 mg PO DAILY mirabegron ER (Myrbetriq) 50 mg (2 x 25 mg) PO DAILY 90 days miscellaneous medical supply As directed nitroglycerin 0.4 mg sublingual Q5M PRN 30 days nystatin (Nystop) 1 appl topical BID nystatin 2 mL PO TID 15 days oxycodone 5 mg PO BID 30 days [Pad bladder ultra As directed 4 times day ] tafluprost (PF) 0.0015% (Zioptan (PF)) 1 drp ophthalmic (eye) QPM timolol maleate (PF) 0.5% 1 drp ophthalmic (eye) BID [WIPES As directed] HPI HPI Comments History of Present Illness Details Pina comes for follow-up after 1 year. She says she is very limited functionality due to significant pain in her left hip which limits her activity level. She is planning to undergo surgery for the same. She has not seen orthopedic surgery valve recommended her to undergo hip replacement surgery. However she also complains of bilateral lower extremity cramping from thighs into the legs. Symptoms are not always exertion related although these are concerning. She takes all her medications regularly. Denies any palpitations. Denies any exertional chest pain sounding chest discomfort although exercise activity is quite limited. She denies any orthopnea, PND, leg edema. [facility] Medical History Thrush, oral Allergic rhinitis Franky's disease Goiter diffuse Cataract Glaucoma Tobacco abuse Type 2 diabetes mellitus with hyperglycemia Anxiety and depression GERD (gastroesophageal reflux disease) Obesity (BMI 30-39.9) COPD (chronic obstructive pulmonary disease) Coronary artery disease Carpal tunnel syndrome Hypercholesterolemia Hypothyroid Hypertension Surgical History Hx of section History of tubal ligation Family History Father Myocardial infarct Maternal Grandmother Breast cancer Mother Pancreatic cancer Sister Bipolar 1 disorder Other Mental problem Social History Household Members: Family Housing: House Do you presently have visiting nurse or other home services: No Alcohol intake: current Alcohol intake frequency: holidays/special occasions only Patient Tobacco Use Status: Current everyday Tobacco user Tobacco use type: Cigarette Cigarettes Per Day: 4 Years Smoked: 4 cigarettes a day e-Cigarette/Vaping Use: Currently Using Advance Directives Date on File: 03/21/22 service: No Current occupational status: disabled Cognitive needs: No Hearing needs: No Vision needs: Yes Review of Systems Const Denies chills, Denies fatigue, Denies fever(s), Denies frequent falls, Denies weakness, Denies weight gain and Denies weight loss ENT Denies dizziness Card Denies chest pain, Denies leg edema, Denies lightheadedness, Denies palpitations, Denies dyspnea, Denies dyspnea on exertion, Denies orthopnea and Denies other (loss of consciousness) Resp Denies cough, Denies dyspnea and Denies dyspnea on exertion GI Denies hematochezia and Denies change in stool character Musc Denies abnormal gait, Denies muscle weakness, Denies numbness, Denies radiating pain into limb and Denies tingling Neuro Denies abnormal gait, Denies dizziness, Denies frequent falls, Denies numbness, Denies tingling and Denies weakness Endo Denies fatigue and Denies palpitations Physical Exam Vital Signs: Last Vital Signs Pulse 64 08/11/23 14:42 BP 124/70 08/11/23 14:42 BMI result Body Mass Index 31.7 Const General: cooperative, comfortable, no acute distress, alert and awake Nutritional Appearance: obese Orientation/consciousness: patient oriented x3 Limitations: ambulation with cane HEENT Head: Yes normocephalic and Yes atraumatic Eyes General: appearance normal, both eyes and all related structures Neck Neck: Yes trachea midline, Yes supple and Yes no JVD Carotids: no bruits Chest Chest palpation & inspection: normal inspection of the chest Resp Effort & Inspection: normal respiratory effort Auscultation: wheezes expiratory wheezes, inspiratory wheezes, left lower and right lower and diminished lung sounds Cardio Jugular venous distension: no JVD Rate: regular rate Rhythm: regular rhythm and abnormal rhythm with ectopic beats Heart sounds: S1 normal heart sound present and S2 normal heart sound present GI Auscultation: normal bowel sounds Skin General skin exam: no rashes or lesions noted and ecchymosis Neuro General: patient oriented x3 and no focal motor deficits Extrem General: Yes no clubbing, cyanosis or edema Psych Appearance: grossly normal Office Procedures EKG Details: EKG shows normal sinus rhythm with low-voltage QRS with septal QS pattern [id number], Complete Assessment & Plan Assessment & Plan (1) Preoperative cardiovascular examination: Code(s): Z01.810 - Encounter for preprocedural cardiovascular examination Plan: Preoperative cardiovascular risk stratification this elderly woman with prior CAD with very limited exercise capacity to undergo intermediate risk surgery. Patient needs further risk stratification with vasodilating myocardial perfusion imaging as well as an echocardiogram. These tests will be scheduled in near near future. Further recommendations based on the finding at rest results. If these are within normal limits she is low risk for perioperative cardiovascular morbidity mortality. I would then pursue surgery on current medications except for aspirin which can be withheld for 3-5 days prior to surgery. (2) Bilateral leg pain: Code(s): M79.604 - Pain in right leg; M79.605 - Pain in left leg Plan: Bilateral lower extremity discomfort which could represent claudication given her significant history this needs to be ruled out. Will suggest lower extremity duplex to further assess for the same. (3) Coronary artery disease: Comment: Echo April 2019 normal LV Pseudonormal filling, pericardial effusion July 2019 moderate pericardial effusion PCI done [facility] June 2015 Code(s): I25.10 - Atherosclerotic heart disease of [place] coronary artery without angina pectoris Qualifiers: Associated angina: without angina Coronary Disease-Associated Artery/Lesion type: [place] artery [place] vs. transplanted heart: [place] heart Qualified Code(s): I25.10 - Atherosclerotic heart disease of [place] coronary artery without angina pectoris Plan: CAD with prior stenting to the LAD significant angina. Currently not having any anginal symptoms although her functional capacity is quite limited. Continue low-dose aspirin therapy for life. Continue high-intensity statin therapy with ezetimibe to target goal LDL closer to 60 mg/dL. At least annual lipid panel should be pursued. Blood pressure is currently well optimized on current medications. Continue the same. Continue aggressive diabetes management goal hemoglobin A1c less than 7%. Follow up in the clinic in 1 year's time, sooner p.r.n.. Thank you for allowing me to partake in her care Orders: Orders CA echo transthoracic complete Today I25.10 - Atherosclerotic heart disease of [place] coronary artery without angina pectoris, Z01.810 - Encounter for preprocedural cardiovascular examination CA lexiscan stress w madelyn Today I25.10 - Atherosclerotic heart disease of [place] coronary artery without angina pectoris, Z01.810 - Encounter for preprocedural cardiovascular examination US arterial duplex LE BI Today M79.604 - Pain in right leg, M79.605 - Pain in left leg Coding Level of Care Code Est Pt Level 4 (19081) Diagnoses Preoperative cardiovascular examination Z01.810 Bilateral leg pain M79.604; M79.605 Coronary artery disease involving [place] coronary artery of [place] heart without angina pectoris I25.10 Associated angina: without angina Coronary Disease-Associated Artery/Lesion type: [place] artery [place] vs. transplanted heart: [place] heart CPT Codes EKG - CPT: [id number], Complete ([id number])
== END 2023-08-11 15:23 | disposition home or self-care (01) ==
PROVIDERS: PCP Internal Medicine; Visit Provider Internal Medicine Cardiovascular Disease
DX: Z01.810 Encounter for preprocedural cardiovascular examination (principal); M79.604 Pain in right leg; M79.605 Pain in left leg; I25.10 Atherosclerotic heart disease of native coronary artery without angina pectoris
CPT/HCPCS: 93010; 99214

== ENCOUNTER 2023-09-08 13:05 | Outpatient (AMB) | payer OTHER, SELFPAY ==
--- NOTE | 2023-09-08 13:05 | A.OFFVIS_ITS ---
Intake Visit Reasons: 1m/PVR (? telehealth) Intake Note: Patient presents today for tele visit follow-up Urology Medications: Estradiol, Myrbetriq Allergies to Antibiotic: No Known Allergies Blood Thinner- Aspirin Lieutenant Ballistics Required: No Accompanied by: Self / Same As Patient Allergies LATEX Allergy (Intermediate, Verified 09/08/23 13:14) rash MOLD Allergy (Intermediate, Verified 09/08/23 13:14) rash NONORGANIC FOOD Allergy (Intermediate, Verified 09/08/23 13:14) diarrhea Yeast Allergy (Intermediate, Verified 09/08/23 13:14) Diarrhea Medication List - Last Reconciled 09/08/23 by JUSTO Dorsey-BC albuterol sulfate 90 mcg/actuation (Proventil HFA) 2 puffs inhalation Q6H PRN ammonium lactate 12% 1 appl topical BID aspirin (Adult Low Dose Aspirin) 81 mg PO DAILY atorvastatin 80 mg PO DAILY [BEDSIDE COMMODE As directed] betamethasone dipropionate 0.05% apply to hands twice daily Breo Ellipta 200-25 mcg/dose (fluticasone furoate-vilanterol) 1 ea PO DAILY NS cholecalciferol (vitamin D3) 25 mcg PO DAILY clonazepam 1 mg PO Q8H [commode As directed] [diabetic shoes As directed] estradiol 0.01%(0.1mg/gram) vaginally 3 times a week; pea sized amount to urethra 3 times a week 30 days ezetimibe (Zetia) 10 mg PO BEDTIME flash glucose scanning reader ([employer] Dany 2 [place]) As directed flash glucose sensor ([employer] Dany 2 Sensor kit) As directed fluticasone propionate 50 mcg/actuation 2 sprays intranasal DAILY gabapentin 100 mg PO BEDTIME hydrocortisone 2.5% (Proctosol HC) 1 appl [place] BID-QID PRN incontinence pad, liner, disp 8 pads per day [id number] Contour Plus BC pad , Inco, Max, swo incontinence pad, liner, disp As directed [incontinent wipes As directed] lactulose 15 mL PO DAILY PRN levothyroxine 100 mcg PO DAILY lisinopril 30 mg PO DAILY 90 days metformin 500 mg PO BID 30 days metoprolol succinate ER 25 mg PO DAILY mirabegron ER (Myrbetriq) 50 mg (2 x 25 mg) PO DAILY 90 days miscellaneous medical supply As directed nitroglycerin 0.4 mg sublingual Q5M PRN 30 days nystatin (Nystop) 1 appl topical BID nystatin 2 mL PO TID 15 days oxycodone 5 mg PO BID 30 days [Pad bladder ultra As directed 4 times day ] tafluprost (PF) 0.0015% (Zioptan (PF)) 1 drp ophthalmic (eye) QPM timolol maleate (PF) 0.5% 1 drp ophthalmic (eye) BID [WIPES As directed] HPI Comments Details: Pina is a pleasant 68-year-old female patient of Dr. Whitman. She has a past medical history of type 2 diabetes, anxiety, depression, GERD, COPD, hypercholesteremia, hypothyroid, hypertension, and bilateral hip joint arthritis. She is being followed up on today via telehealth for her recurrent UTI and lower urinary tract symptoms. When asked she denies any bothersome urinary issues or concerns. Her main concern is her bilateral lower leg weakness and her ongoing left hip arthritis. She discusses having followed up with Cardiology recently and is undergoing cardiac clearance for potential hip replacement. She reports to be happy with her current voiding parameters on Myrbetriq as prescribed. She reports compliance with Estrace cream as prescribed. Previous workup has included a retroperitoneal ultrasound noting bilateral kidneys with no hydronephrosis or renal calculi limited visualization. Pre void bladder volume is approximately 160 mL. Postvoid bladder volume is approximately 60 mL. She has trialed oxybutynin, tolterodine, and Toviaz in the past with no improvement in lower urinary tract symptoms. Patient with previous UTI treatment for positive Microgen results. She reports feeling the best she has felt in a long time with regards to her urinary issues. She currently denies any bothersome urinary issues or concerns. She denies any UTI like symptoms. She otherwise denies hematuria, foul smelling urine, changes to urinary stream, flank pain, fever, and or chills. Discussed further assessment evaluation with urodynamics if symptoms arise given patient's history of multiple failed overactive bladder medications. She discusses finding it difficult to keep her scheduled appointments due to her transportation issues. [facility] Medical History Thrush, oral Allergic rhinitis Franky's disease Goiter diffuse Cataract Glaucoma Tobacco abuse Type 2 diabetes mellitus with hyperglycemia Anxiety and depression GERD (gastroesophageal reflux disease) Obesity (BMI 30-39.9) COPD (chronic obstructive pulmonary disease) Coronary artery disease Carpal tunnel syndrome Hypercholesterolemia Hypothyroid Hypertension Surgical History Hx of section History of tubal ligation Family History Father Myocardial infarct Maternal Grandmother Breast cancer Mother Pancreatic cancer Sister Bipolar 1 disorder Other Mental problem Social History Household Members: Family Housing: House Do you presently have visiting nurse or other home services: No Alcohol intake: current Alcohol intake frequency: holidays/special occasions only Patient Tobacco Use Status: Current everyday Tobacco user Tobacco use type: Cigarette Cigarettes Per Day: 4 Years Smoked: 4 cigarettes a day e-Cigarette/Vaping Use: Currently Using Advance Directives Date on File: 03/21/22 service: No Current occupational status: disabled Cognitive needs: No Hearing needs: No Vision needs: Yes Review of Systems Const Reports as per HPI Eyes Reports no additional complaints ENT Reports no additional complaints Card Reports as per HPI Resp Reports as per HPI GI Reports as per HPI Reports as per HPI Musc Reports as per HPI Neuro Reports no additional complaints Psych Reports as per HPI Endo Reports as per HPI Physical Exam Const General: cooperative Resp Effort & Inspection: able to speak in complete sentences Psych Speech and movement: Clear speech present Attitude: cooperative Thought content: Normal thought content present Insight: Fair insight present (Psych) Judgement: Fair judgement present (Psych) Telehealth Telehealth Telehealth Platform: [facility] Location of provider rendering services: practice address Location of patient: address on file Patient Identification confirmed using: Name, : Yes Telehealth method: voice only Patient verbally consented to treatment: Yes Patient verbally consented to billing insurance company: Yes Patient informed of any privacy concerns related to visit: Yes Minutes spent on Phone/Video with Pt.: 20 Assessment & Plan Assessment & Plan (1) Recurrent UTI: Code(s): N39.0 - Urinary tract infection, site not specified Category: Medical (2) Urinary frequency: Code(s): R35.0 - Frequency of micturition Category: Medical (3) Urinary urgency: Code(s): R39.15 - Urgency of urination Category: Medical (4) Urinary incontinence: Code(s): R32 - Unspecified urinary incontinence Category: Medical Plan Continue Estrace cream and Myrbetriq as prescribed. Discussed UTI prevention with D mannose supplement, vitamin-C, increasing fluid intake, behavioral therapy with timed voiding, perineal hygiene and postcoital voiding, and management of constipation with stool softeners and increased fiber intake. Patient currently denies any bothersome urinary issues or concerns. She reports be happy with current voiding parameters She currently denies any UTI like symptoms. Follow-up in 3 months with PVR; or sooner with any issues, concerns, and or questions. Patient Instructions: The patient had an opportunity to ask questions regarding the treatment plan. All questions were answered. Physical exam, labs, and imaging were discussed and reviewed in detail. As well as risks, benefits, and discussion of treatment choices. No major barriers to understanding were identified. The patient expressed understanding and agreement with the above treatment plan. The patient was made aware they should contact our office by phone for worsening of their current condition, the appearance of new symptoms, or with any quest ions or concerns. Compliance is encouraged with any medications and follow up testing that is ordered. It is a privilege to be allowed the opportunity to participate in? your urological care.? Again, if you have any questions or concerns If you have any questions or concerns please do not hesitate to contact me. The office is [phone]. This note is constructed using voice recognition software. While every effort has been made to ensure accuracy electronics utility worker errors may have been included. Yours sincerely, ELISEO Dorsey Coding Level of Care Code Tele Est Pt Level 3 (49821) Diagnoses Recurrent UTI N39.0 Urinary frequency R35.0 Urinary urgency R39.15 Urinary incontinence R32
== END 2023-09-08 13:34 | disposition home or self-care (01) ==
LOC: HO.HUSH 13:05
PROVIDERS: PCP Internal Medicine; Visit Provider Nurse Practitioner Family
DX: N39.0 Urinary tract infection, site not specified (principal); R35.0 Frequency of micturition; R39.15 Urgency of urination; R32 Unspecified urinary incontinence
CPT/HCPCS: 99442

== ENCOUNTER → 2023-09-08 13:05 | Outpatient (BNVA) | payer OTHER, SELFPAY | PROVIDERS: PCP Internal Medicine; Visit Provider Nurse Practitioner Family ==

== ENCOUNTER → 2023-09-17 13:45 | Outpatient (REF) | payer OTHER, SELFPAY ==
--- NOTE | 2023-09-17 13:47 | CA_ITS ---
Transthoracic Echocardiogram Patient (Last, First, Middle): Pina Olmstead A Gender: Female Date of : 1955 Age: 68 Procedure Date: 09/17/2023 Procedure Type: Transthoracic Echocardiogram Location: OP Height: 154.94 cm Weight: 75.75 kg BSA: 1.75 m2 Heart Rate: 60 bpm BP: 122 / 70 mmHg Experimental Aircraft Mechanic: MAIKEL Referring MD: Alli Hayes MD Symptoms: Z01.810 - Encounter for preprocedural cardiovascular examination Study Quality: Fair ECG Rhythm: Sinus Conclusions: - The left ventricular systolic function is normal. The calculated ejection fraction is 62% by biplane method. - No obvious valvular pathology seen on this study. Findings Procedure Information Contrast agent, definity, is being given per protocol without apparent complications. The quality of the study was technically difficult. The study quality is limited by patients body habitus. Left Ventricle Normal left ventricular cavity size. There is normal left ventricular wall thickness. The left ventricular systolic function is normal. The calculated ejection fraction is 62% by biplane method. There is no evidence of regional wall motion abnormalities. Diastolic function is normal for age. Right Ventricle Normal right ventricular cavity size. There is mildly decreased right ventricular systolic function. Atria Both atria are normal in size. Aortic Valve The aortic valve was not well visualized. There is no aortic valve stenosis. There is no aortic valve regurgitation. Mitral Valve The mitral valve appears normal. There is no mitral valve regurgitation. There is no mitral valve stenosis. Pulmonic Valve The pulmonic valve is likely normal. Tricuspid Valve There is no tricuspid valve regurgitation. Tricuspid regurgitation envelope is inadequate for calculation of right ventricular systolic pressure. Great Vessels The asc aorta is normal in size. Venous The inferior vena cava is normal in size and collapses greater than 50% with inspiration. Pericardium/Pleural Possible small circumferential pericardial effusion but could also be fat. Prior Study Comparison No significant change compared to prior study dated: 04/29/2021. Recommendations, Care & Conclusions No obvious valvular pathology seen on this study. Measurements 2D Linear Measurements IVSd: 0.67 0.6-0.9/0.6-1.0 cm LVIDd: 4.73 3.9-5.3/4.2-5.9 cm LVIDd Index: 2.70 2.4-3.2/2.2-3.1 cm/m2 LVIDs: 3.09 2.0-3.6 cm LVPWd: 0.61 0.7-1.1 cm LA Diam: 3.50 2.7-3.8/3.0-4.0 cm LAIDs Index: 2.00 1.5-2.3 cm/m2 LV Mass: 115.93 67-162/88-224 g LV Mass Index: 66.25 43-95/49-115 g/m2 LVOT Diam: 1.90 3.0+(-)1.3 cm 2D Systolic Function EF 4C: 68.80 >55% EF 2C: 56.70 >55% EF BiP: 62.00 >55% Mitral Valve MV Pk E: 1.15 MV PK A: 0.95 MV Decel Time: 209.00 E/A: 1.20 E'Lateral: 4.90 E'Medial: 7.18 E/E' Med: 16.00 E/E' Lat: 23.50 PHT: 61.00 MVA PHT: 3.61 Decel Ward: 5.53 Aortic Valve AoV Pk Denis: 1.16 AoV Mn Denis: 0.76 AoV VTI: 0.27 AoV Pk Grad: 5.00 Aov Mn Grad: 3.00 MALIK Cont.VTI: 2.22 LVOT LVOT Pk Denis: 0.85 LVOT Mn Denis: 0.57 LVOT VTI: 0.21 LVOT Pk Grad: 3.00 LVOT Mn Grad: 2.00 LVOT Diam: 1.90 LVOT Area: 2.84 Diastolic Function MV Pk E: 1.15 MV Pk A: 0.95 E/A: 1.20 E'Medial: 7.18 E/E' Med: 16.00 E' Laterial: 4.90 E/E' Lat: 23.50 Right Ventricle TAPSE (mm): 16.30 TVS' Denis: 9.79 Tricuspid Valve RA Press: 3.00 Great Vessels Aorta Sinus of Valsalva: 2.60 2.0-3.5 cm Ao Asc: 3.20 2.1-3.4 cm Pulmonary Veins Pulm Vein S/D 1.40 Pulmonary Valve PV Pk Denis: 1.05 Peak PV Grad: 4.00 Updated in Other Vendor System with Status of Final Tez Ayon MD electronically signed on 09/19/2023 11:15:57 AM with status of Final
== END ==
LOC: HO.CARD 13:45
PROVIDERS: PCP Internal Medicine; Visit Provider Internal Medicine Cardiovascular Disease
DX: Z01.810 Encounter for preprocedural cardiovascular examination (principal); I25.10 Atherosclerotic heart disease of native coronary artery without angina pectoris
CPT/HCPCS: 93306; Q9957

== ENCOUNTER → 2023-09-17 13:47 | Outpatient (BNV) | payer OTHER, SELFPAY | PROVIDERS: PCP Internal Medicine; Visit Provider Internal Medicine | DX: Z01.810 Encounter for preprocedural cardiovascular examination (principal) | CPT/HCPCS: 93306 ==

== ENCOUNTER 2023-09-28 12:53 | Outpatient (REF) | payer OTHER, SELFPAY ==
--- NOTE | ~2023-09-28 | US_ITS ---
EXAMINATION: Noninvasive assessment of the bilateral lower extremities with ARTERIAL DUPLEX. CLINICAL INFORMATION: Peripheral vascular disease TECHNIQUE: Duplex Doppler techniques with waveform analysis and measurement of velocities in the bilateral common femoral, profunda femoris, superficial femoral, popliteal and tibial arteries were performed. COMPARISON: None FINDINGS: DIRECT DUPLEX DOPPLER FINDINGS: RIGHT LEG: Common femoral artery: 130 cm/s, phasicity: Biphasic Profunda femoris artery: 95.9 cm/s, phasicity: Biphasic Superficial femoral artery (proximal): 170 cm/s, phasicity: Triphasic Superficial femoral artery (mid): 148 cm/s, phasicity: Biphasic Superficial femoral artery (distal): 110 cm/s, phasicity: Triphasic Popliteal artery: 101 cm/s, phasicity: Biphasic Posterior tibial artery: 55.1 cm/s, phasicity: Biphasic Peroneal artery: 57.5 cm/s, phasicity: Biphasic Anterior tibial artery: 121 cm/s, phasicity: Triphasic Dorsalis pedis artery: 97.6 cm/s, phasicity:Triphasic LEFT LEG: Common femoral artery: 111 cm/s, phasicity: Triphasic Profunda femoris artery: 74.8 cm/s, phasicity: Biphasic Superficial femoral artery (proximal): 132 cm/s, phasicity: Biphasic Superficial femoral artery (mid): 114 cm/s, phasicity: Triphasic Superficial femoral artery (distal): 101 cm/s, phasicity: Triphasic Popliteal artery: 96 cm/s, phasicity: Biphasic Posterior tibial artery: 77 cm/s, phasicity: Monophasic Peroneal artery: 79 cm/s, phasicity: Monophasic Anterior tibial artery: 163 cm/s, phasicity: Monophasic Dorsalis pedis artery: 103 cm/s, phasicity: Monophasic US/US arterial duplex LE BI IMPRESSION: Right leg: Patent arterial flow throughout the right lower extremity without significant arterial stenosis or occlusion Left leg: Patent arterial flow throughout the right lower extremity without significant arterial stenosis or occlusion
== END 2023-09-28 12:54 | disposition home or self-care (01) ==
LOC: HO.US 12:53
PROVIDERS: PCP Internal Medicine; Visit Provider Internal Medicine Cardiovascular Disease
DX: M79.604 Pain in right leg (principal); M79.605 Pain in left leg
CPT/HCPCS: 93925

== ENCOUNTER 2023-11-25 13:47 | Outpatient (AMB) | payer OTHER, SELFPAY ==
--- NOTE | 2023-11-25 13:50 | MHC.OFFVIS ---
Intake Visit Reasons: 3 month follow-up/PVR Intake Note: Patient presents today for follow up visit on: recurrent uti and frequency Urology Medications: Estradiol, Myrbetriq Allergies to Antibiotic: No Known Allergies Blood Thinner: Aspirin PVR: 50ml's Office Automation Clerk Required: No Accompanied by: Self / Same As Patient Allergies LATEX Allergy (Intermediate, Verified 11/25/23 14:46) rash MOLD Allergy (Intermediate, Verified 11/25/23 14:46) rash NONORGANIC FOOD Allergy (Intermediate, Verified 11/25/23 14:46) diarrhea Yeast Allergy (Intermediate, Verified 11/25/23 14:46) Diarrhea Medication List - Last Reconciled 11/25/23 by JUSTO Dorsey-MAXIM albuterol sulfate 90 mcg/actuation (Proventil HFA) 2 puffs inhalation Q6H PRN ammonium lactate 12% 1 appl topical BID aspirin (Adult Low Dose Aspirin) 81 mg PO DAILY atorvastatin 80 mg PO DAILY [BEDSIDE COMMODE As directed] betamethasone dipropionate 0.05% apply to hands twice daily Breo Ellipta 200-25 mcg/dose (fluticasone furoate-vilanterol) 1 ea PO DAILY NS cholecalciferol (vitamin D3) 25 mcg PO DAILY clonazepam 1 mg PO Q8H [commode As directed] [diabetic shoes As directed] estradiol 0.01%(0.1mg/gram) vaginally 3 times a week; pea sized amount to urethra 3 times a week 30 days ezetimibe (Zetia) 10 mg PO BEDTIME flash glucose scanning reader (Best Five Reviewed Dany 2 [place]) As directed flash glucose sensor (FreeStyle Dany 2 Sensor kit) As directed fluticasone propionate 50 mcg/actuation 2 sprays intranasal DAILY gabapentin 100 mg PO BEDTIME hydrocortisone 2.5% (Proctosol HC) 1 appl [place] BID-QID PRN incontinence pad, liner, disp 8 pads per day [id number] Contour Plus BC pad , Inco, Max, swo incontinence pad, liner, disp As directed [incontinent wipes As directed] lactulose 15 mL PO DAILY PRN levothyroxine 100 mcg PO DAILY lisinopril 30 mg PO DAILY 90 days metformin 500 mg PO BID 30 days metoprolol succinate ER 25 mg PO DAILY mirabegron ER (Myrbetriq) 50 mg PO DAILY miscellaneous medical supply As directed nitroglycerin 0.4 mg sublingual Q5M PRN 30 days nystatin (Nystop) 1 appl topical BID nystatin 2 mL PO TID 15 days oxycodone 5 mg PO BID 30 days [Pad bladder ultra As directed 4 times day ] tafluprost (PF) 0.0015% (Zioptan (PF)) 1 drp ophthalmic (eye) QPM timolol maleate (PF) 0.5% 1 drp ophthalmic (eye) BID [WIPES As directed] HPI Comments Details: Pina is a pleasant 68-year-old female patient of Dr. Whitman. She has a past medical history of type 2 diabetes, anxiety, depression, GERD, COPD, hypercholesteremia, hypothyroid, hypertension, and bilateral hip joint arthritis. She she presents to the office today for follow-up of her recurrent urinary tract infections and lower urinary tract symptoms. In discussion with the patient today she denies any bothersome urinary issues or concerns. She does discuss her frustration regarding her insurance coverage with Myrbetriq 25 mg b.i.d. verses 50 mg daily. She otherwise denies any bothersome urinary issues or concerns. In office urinalysis results reviewed with the patient today. PVR 50 mL. She reports feeling Myrbetriq 50 mg daily has been helpful in episodes of urinary frequency, urinary urgency and mixed urinary incontinent episodes she had been experiencing. When asked she denies hematuria, dysuria, foul smelling urine, changes to urinary stream, flank pain, fever, and or chills. She is happy with her current voiding parameters on 50 mg of Myrbetriq. She reports compliance with Estrace cream as prescribed. Previous workup has included a retroperitoneal ultrasound 12/07 noting bilateral kidneys with no hydronephrosis or renal calculi limited visualization. Pre void bladder volume is approximately 160 mL. Postvoid bladder volume is approximately 60 mL. She has trialed oxybutynin, tolterodine, and Toviaz in the past with no improvement in lower urinary tract symptoms. Patient with previous UTI treatment for positive Microgen results 05/09. She reports feeling the best she has felt in a long time with regards to her urinary issues. Discussed further assessment evaluation with urodynamics if symptoms arise given patient's history of multiple failed overactive bladder medications. She discusses finding it difficult to keep her scheduled appointments due to her transportation issues. [facility] Medical History Thrush, oral Allergic rhinitis Franky's disease Goiter diffuse Cataract Glaucoma Tobacco abuse Type 2 diabetes mellitus with hyperglycemia Anxiety and depression GERD (gastroesophageal reflux disease) Obesity (BMI 30-39.9) COPD (chronic obstructive pulmonary disease) Coronary artery disease Carpal tunnel syndrome Hypercholesterolemia Hypothyroid Hypertension Surgical History Hx of section History of tubal ligation Family History Father Myocardial infarct Maternal Grandmother Breast cancer Mother Pancreatic cancer Sister Bipolar 1 disorder Other Mental problem Social History Household Members: Family Housing: House Do you presently have visiting nurse or other home services: No Alcohol intake: current Alcohol intake frequency: holidays/special occasions only Patient Tobacco Use Status: Current everyday Tobacco user Tobacco use type: Cigarette Cigarettes Per Day: 4 Years Smoked: 4 cigarettes a day e-Cigarette/Vaping Use: Currently Using Advance Directives Date on File: 03/21/22 service: No Current occupational status: disabled Cognitive needs: No Hearing needs: No Vision needs: Yes Review of Systems Const Reports as per [facility] Eyes Reports no additional complaints ENT Reports no additional complaints Card Reports as per [facility] Resp Reports as per [facility] GI Reports as per HPI Reports as per [facility] Musc Reports as per HPI Neuro Reports no additional complaints Psych Reports as per [facility] Endo Reports as per HPI Physical Exam Const General: cooperative, healthy appearing, comfortable, no acute distress, well developed, alert and awake Nutritional Appearance: overweight Orientation/consciousness: patient oriented x3 Limitations: ambulation with cane HEENT Head: Yes normal to inspection, Yes normocephalic and Yes atraumatic Ears: hearing grossly normal bilaterally Eyes General: appearance normal, both eyes and all related structures Neck Neck: Yes normal visual inspection and Yes trachea midline Chest Chest palpation & inspection: normal inspection of the chest Resp Effort & Inspection: normal respiratory effort and able to speak in complete sentences Cardio Rate: regular rate GI Inspection: Yes normal to inspection General: Yes no CVA tenderness Back/Spine/Pelvis Back: no CVA tenderness Skin General skin exam: no rashes or lesions noted Neuro General: patient oriented x3 Extrem General: Yes normal to inspection Psych Appearance: grossly normal and well kempt Mental Status: mental status grossly normal Speech and movement: Normal speech and movement present and Clear speech present Affect: normal affect Attitude: cooperative Thought process: Normal thought process present Thought content: Normal thought content present Insight: Fair insight present (Psych) Judgement: Fair judgement present (Psych) Results AMB Urinalysis, Automated UA Leukoctes 15 Ivette/uL Last Edit by [employer] on 11/25/23 14:29 UA Nitrite Negative Last Edit by [employer] on 11/25/23 14:29 UA Urobilinogen 0.2 mg/dL Last Edit by [employer] on 11/25/23 14: UA Protein 0 mg/dL Last Edit by [employer] on 11/25/23 14:29 UA pH 6.0 Last Edit by [employer] on 11/25/23 14:29 UA Blood 0 Jordan/uL Last Edit by [employer] on 11/25/23 14:29 UA Specific [place] 1.020 Last Edit by [employer] on 11/25/23 14:29 UA Ketone Negative Last Edit by [employer] on 11/25/23 14:29 UA Bilirubin 0 mg/dL Last Edit by [employer] on 11/25/23 14:29 UA Glucose 0 mg/dL Last Edit by [employer] on 11/25/23 14:29 Results Reviewed Results Reviewed: Laboratory Last Values Urine pH (Auto) 6.0 11/25/23 14: Specific [place] (Auto) 1.020 11/25/23 14:27 Urine Protein (Auto) 0 mg/dL 11/25/23 14:27 Glucose (UA)(Auto) 0 mg/dL 11/25/23 14: Urine Ketones (Auto) Negative 11/25/23 14: Urine Blood (Auto) 0 [place]/uL 11/25/23 14:27 Urine Nitrite (Auto) Negative 11/25/23 14: Urine Bilirubin (Auto) 0 mg/dL 11/25/23 14: Urine Urobilinogen (Auto) 0.2 mg/dL 11/25/23 14: Leukocyte Esterase (Auto) 15 Ivette/uL 11/25/23 14:27 Assessment & Plan Assessment & Plan (1) Recurrent UTI: Code(s): N39.0 - Urinary tract infection, site not specified Category: Medical (2) Urinary frequency: Code(s): R35.0 - Frequency of micturition Category: Medical (3) Urinary urgency: Code(s): R39.15 - Urgency of urination Category: Medical (4) Urinary incontinence: Code(s): R32 - Unspecified urinary incontinence Category: Medical Plan In office urinalysis results reviewed with the patient today; as noted above. PVR 50 mL. Continue Estrace cream and Myrbetriq as prescribed. Discussed UTI prevention with D mannose supplement, vitamin-C, increasing fluid intake, behavioral therapy with timed voiding, perineal hygiene and postcoital voiding, and management of constipation with stool softeners and increased fiber intake. Patient currently denies any bothersome urinary issues or concerns. She reports be happy with current voiding parameters She currently denies any UTI like symptoms. Follow-up in 6 months with PVR; or sooner with any issues, concerns, and or questions. Orders: Orders AMB Urinalysis Automated Today Z13.9 - Encounter for screening, unspecified AMB Post Void Residual by ultrasound Today N39.0 - Urinary tract infection, site not specified Patient Instructions: The patient had an opportunity to ask questions regarding the treatment plan. All questions were answered. Physical exam, labs, and imaging were discussed and reviewed in detail. As well as risks, benefits, and discussion of treatment choices. No major barriers to understanding were identified. The patient expressed understanding and agreement with the above treatment plan. The patient was made aware they should contact our office by phone for worsening of their current condition, the appearance of new symptoms, or with any questions or concerns. Compliance is encouraged with any medications and follow up testing that is ordered. It is a privilege to be allowed the opportunity to participate in? your urological care.? Again, if you have any questions or concerns If you have any questions or concerns please do not hesitate to contact me. The office is [phone]. This note is constructed using voice recognition software. While every effort has been made to ensure accuracy curing oven attendant errors may have been included. Yours sincerely, ELISEO Dorsey Coding Level of Care Code Est Pt Level 3 (01352) Complex EM visit Add On G2211 Diagnoses Recurrent UTI N39.0 Urinary frequency R35.0 Urinary urgency R39.15 Urinary incontinence R32
== END 2023-11-25 14:45 | disposition home or self-care (01) ==
PROVIDERS: PCP Internal Medicine; Visit Provider Nurse Practitioner Family
DX: N39.0 Urinary tract infection, site not specified (principal); R35.0 Frequency of micturition; R39.15 Urgency of urination; R32 Unspecified urinary incontinence; Z13.9 Encounter for screening, unspecified
CPT/HCPCS: 99213; G2211

== ENCOUNTER → 2023-11-25 13:47 | Outpatient (BNVA) | payer OTHER, SELFPAY | PROVIDERS: PCP Internal Medicine; Visit Provider Nurse Practitioner Family | DX: N39.0 Urinary tract infection, site not specified (principal); R35.0 Frequency of micturition; R39.15 Urgency of urination; R32 Unspecified urinary incontinence; Z79.899 Other long term (current) drug therapy | CPT/HCPCS: 81003; 99212 ==

== ENCOUNTER 2024-01-04 08:19 | Outpatient (REF) | payer OTHER, SELFPAY ==
[2024-01-05 14:28] LABS: Calcium, Ionized 5.5 mg/dL (4.7-5.5)
== END 2024-01-04 08:20 | disposition home or self-care (01) ==
LOC: HO.HMGCLDS 08:19
PROVIDERS: PCP Internal Medicine; Visit Provider Internal Medicine
DX: E83.52 Hypercalcemia (principal)
CPT/HCPCS: 36415; 82330

== ENCOUNTER → 2024-01-06 11:45 | Outpatient (BNV) | payer OTHER, SELFPAY | PROVIDERS: PCP Internal Medicine; Visit Provider Internal Medicine | DX: Z12.31 Encounter for screening mammogram for malignant neoplasm of breast (principal) | CPT/HCPCS: 77063; 77067 ==

== ENCOUNTER 2024-01-06 11:49 | Outpatient (REF) | payer OTHER, SELFPAY ==
--- NOTE | ~2024-01-06 | MM_ITS ---
EXAMINATION: MM SCREENING DIGITAL BREAST TOMOSYNTHESIS, BILATERAL CLINICAL INFORMATION: Screening. Asymptomatic. COMPARISON: Mammography: Comparisons were made with prior available images. TECHNIQUE: Digital breast tomosynthesis is performed in both the craniocaudal and mediolateral oblique views along with computer-aided detection (CAD). Synthesized 2D images are generated from the tomosynthesis. FINDINGS: There are scattered areas of fibroglandular density (ACR BI-RADS breast composition Category b). Left: There are no significant masses, abnormal calcifications, or other abnormalities. Right: Focal asymmetry upper inner breast posterior depth. Asymmetry retroareolar region of the from CC view. No suspicious calcifications or other abnormal findings. MM/MM tomosynthesis screening BI IMPRESSION: Left: No mammographic evidence of malignancy. Right: Asymmetries additional imaging and ultrasound are recommended at this time. ASSESSMENT: BI-RADS BI-RADS 0 - Incomplete: Needs additional Imaging. RECOMMENDATION: 1. Additional views of the ...... 2. Targeted ultrasound if warranted after review of the additional views. 3. Radiology department staff will contact the patient for additional imaging. Additional Imaging required This examination should not preclude the clinical evaluation of a suspicious palpable abnormality. This patient's information was entered into a reminder system with a target due date for their next mammogram. Electronically signed by: Orquidea Salazar DO 02/03/2024 09:03 PM EDT
== END 2024-01-06 11:50 | disposition home or self-care (01) ==
LOC: HO.MAMMO 11:49
PROVIDERS: PCP Internal Medicine; Visit Provider Internal Medicine
DX: Z12.31 Encounter for screening mammogram for malignant neoplasm of breast (principal)
CPT/HCPCS: 77063; 77067

== ENCOUNTER 2024-01-06 12:27 | Outpatient (AMB) | payer OTHER, SELFPAY ==
[2024-01-06 12:50] VITALS: BP 130/82; PULSE 77; O2SAT 98; BMI 31.6
--- NOTE | 2024-01-06 12:50 | A.OFFPC_ITS ---
Vital Signs 01/06/24 12:50 Height 5 ft 1 in Weight 167 lb BMI 31.6 BP 130/82 Blood Pressure Location Lt brachial Position Sitting Pulse 77 Pulse Source Pulse Oximeter Pulse Oximetry (%) 98 Oxygen Delivery Method Room Air Intake Visit Reasons: DM Allergies LATEX Allergy (Intermediate, Verified 01/06/24 12:50) rash MOLD Allergy (Intermediate, Verified 01/06/24 12:50) rash NONORGANIC FOOD Allergy (Intermediate, Verified 01/06/24 12:50) diarrhea Yeast Allergy (Intermediate, Verified 01/06/24 12:50) Diarrhea Tobacco use date assessed: 01/06/24 Fall risk assessment: No Falls in past year Last assessed Fall Risk: 01/06/24 Dental Screening Dental Screen Date: 01/06/24 Did you have a dental visit in the last 12 months?: Yes Did you have a dental problem in the last 6 months where you did not have access to dental care?: No Was dental information given to patient?: Patient has dentist HPI DM HPI Details 68-year-old obese female smoker with jhon betes mellitus coronary artery disease hypercholesterolemia COPD GERD hypothyroid and hypertension generalized anxiety disorder last seen in June 2023. Patient's colonoscopy is up-to-date tubular adenoma september 2021 mammogram is due as well as bone density. Patient has had recurrent UTI and has been follow-up with urology on Estrace and placed on Myrbetriq recommended demand does vitamin-C increasing fluids time voiding and perineal hygiene. In September had lower extremity artery duplex revealing normal results. Echocardiogram September 2023 The left ventricular systolic function is normal. The calculated ejection fraction is 62% by biplane method. - No obvious valvular pathology seen on this study. Pulmonary seen in July for the COPD on Breo and Proventil advised Flonase for allergies. still smoking. 3-4 a day. PAtient is suppose to have hip surgery- problem on recliner. was seen by cardiology and advised workup when has a schedule for surgery alsready.. [facility] Medical History (Updated 01/06/24 @ 13:15 by Vicky Whitman MD) Anxiety and depression Thrush, oral Allergic rhinitis Franky's disease Goiter diffuse Cataract Glaucoma Tobacco abuse Type 2 diabetes mellitus with hyperglycemia GERD (gastroesophageal reflux disease) Obesity (BMI 30-39.9) COPD (chronic obstructive pulmonary disease) Coronary artery disease Carpal tunnel syndrome Hypercholesterolemia Hypothyroid Hypertension Surgical History Hx of section History of tubal ligation Family History Father Myocardial infarct Maternal Grandmother Breast cancer Mother Pancreatic cancer Sister Bipolar 1 disorder Other Mental problem Social History Household Members: Family Housing: House Do you presently have visiting nurse or other home services: No Alcohol intake: current Alcohol intake frequency: holidays/special occasions only Patient Tobacco Use Status: Current everyday Tobacco user Tobacco use type: Cigarette Cigarettes Per Day: 4 Years Smoked: 4 cigarettes a day e-Cigarette/Vaping Use: Currently Using Advance Directives Date on File: 03/21/22 service: No Current occupational status: disabled Cognitive needs: No Hearing needs: No Vision needs: Yes Questionnaire PHQ-9 Over the last 2 weeks, how often have you been bothered by any of the following problems? 1. Little interest or pleasure in doing things: several days 2. Feeling down, depressed, or hopeless: several days 3. Trouble falling or staying asleep, or sleeping too much: several days 4. Feeling tired or having little energy: several days 5. Poor appetite or overeating: not at all 6. Feeling bad about yourself - or that you are a failure or have let yourself or your family down: not at all 7. Trouble concentrating on things, such as reading the newspaper or watching television: not at all 8. Moving or speaking so slowly that other people could have noticed. Or the opposite - being so fidgety or restless that you have been moving around a lot more than usual: not at all 9. Thoughts that you would be better off or of hurting yourself in some way: not at all Total score: 4 Depression Screening Interpretation: Positive Depression Screening Done: Yes Source: Developed by Drs. Ras Asif, Kim Jones, Dyllan Norris and colleagues, with an educational kosta from [employer]. Thrive Questionnaire Date Thrive assessed: 07/03/23 AUDIT C Alcohol Use Questionnaire (AUDIT-C) 1. How often do you have a drink containing alcohol?: Never 2. How many drinks containing alcohol do you have on a typical day when you are drinking?: 1 or 2 3. How often do you have six or more drinks on one occasion?: Never Total Score: 0 RYLAN-7 AMB Questionnaire RYLAN-7 Date RYLAN - 7 assessed: 07/03/23 Source: Developed by Drs. Ras Asif, Kim Jones, Dyllan Norris and colleagues, with an educational kosta from [employer]. Physical exam (Primary Care) Vital Signs: Last Vital Signs Pulse 77 01/06/24 12:50 BP 130/82 01/06/24 12:50 Pulse Ox 98 01/06/24 12:50 Oxygen Delivery Method Room Air 01/06/24 12:50 BMI result Body Mass Index 31.6 Tobacco/Smoking Status: Tobacco use Status Tobacco use date assessed 01/06/24 01/06/24 13:02 Patient Tobacco Use Status Current everyday Tobacco 01/06/24 12:51 Tobacco use type Cigarette 01/06/24 12:51 e-Cigarette/Vaping Use Currently Using 01/06/24 12:51 PHQ-9: PHQ-9 Score PHQ-9: Total score 4 01/06/24 13:13 Depression Screening Interpretation: Positive Thrive Assessment: Date of Thrive Assessment Date Thrive assessed 07/03/23 01/06/24 12:51 Const General: alert; No acute distress Eyes Conjunctivae: conjunctivae normal Resp Auscultation: clear to auscultation bilaterally Cardio Rate: regular rate Rhythm: regular rhythm GI Inspection: Yes normal to inspection Extrem General: Yes normal to inspection and No edema Results AMB Hemoglobin A1c AMB Hemoglobin A1c 7.3 % Last Edit by Tiana Smith CMA on 01/06/24 13 :15 Assessment and Plan Assessment & Plan (1) Tobacco abuse: Comment: SHE CONTINUES TO SMOKE ABOUT 4-5 CIGARETTES A DAY. COUNSELED THAT SHE SHOULD STOP SMOKING COMPLETELY . . HER COUGH AND CONGESTED FEELING IN THE UPPER AIRWAYS IS MOSTLY SECONDARY TO SMOKING. Code(s): Z72.0 - Tobacco use Plan: Strongly advised to stop smoking! (2) Type 2 diabetes mellitus with hyperglycemia: Comment: Dr. Mujica and Dr. 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 Hemoglobin A1c goal of less than 7.0. Patient is on metformin 500 mg twice a day (3) Obesity (BMI 30-39.9): Code(s): E66.9 - Obesity, unspecified Plan: Diet and exercise (4) COPD (chronic obstructive pulmonary disease): Comment: Chronic, mild to moderate COPD, and she also has moderate degree of restrictive disorder. Overall it is staying stable. T Code(s): J44.9 - Chronic obstructive pulmonary disease, unspecified Qualifiers: COPD type: emphysema Emphysema type: unspecified Qualified Code(s): J43.9 - Emphysema, unspecified Plan: Patient is strongly advised to stop smoking! Patient follows up with Pulmonary on Breo and short-acting beta agonist (5) GERD (gastroesophageal reflux disease): Code(s): K21.9 - Gastro-esophageal reflux disease without esophagitis Qualifiers: Esophagitis presence: without esophagitis Qualified Code(s): K21.9 - Gastro-esophageal reflux disease without esophagitis Plan: Avoid the foods that causes that usually spicy foods, tomato products, juices, coffee, soda and foods that your sensitive to. After eating do not lie down, allow 3-4 hours before in lie down. And keep the head of bed above 30 degrees to avoid the acid from going up. (6) Coronary artery disease: Comment: Echo April 2019 normal LV Pseudonormal filling, pericardial effusion July 2019 moderate pericardial effusion PCI done [facility] June 2015 Code(s): I25.10 - Atherosclerotic heart disease of [place] coronary artery without angina pectoris Qualifiers: Associated angina: without angina Coronary Disease-Associated Artery/[place] type: [place] artery [place] vs. transplanted heart: [place] heart Qualified Code(s): I25.10 - Atherosclerotic heart disease of [place] coronary artery without angina pectoris Plan: Control the cholesterol, weight, blood pressure, diabetes continue with aspirin 81 mg once a day (7) Hypothyroid: Code(s): E03.9 - Hypothyroidism, unspecified Qualifiers: Hypothyroidism type: acquired Qualified Code(s): E03.9 - Hypothyroidism, unspecified Plan: Continue with thyroid medication (8) Hypercholesterolemia: Code(s): E78.00 - Pure hypercholesterolemia, unspecified Plan: Avoid fried foods, chicken skin, eggs, butter margarine, pastries and meat. Be it pork or beef they have a lot of cholesterol LDL goal of less than 70 and triglyceride of less than 150 on atorvastatin 80 mg once a day and Zetia (9) Hypertension: Code(s): I10 - Essential (primary) hypertension Qualifiers: Hypertension type: essential hypertension Qualified Code(s): I10 - Essential (primary) hypertension Plan: Continue with blood pressure medication. Decrease salt intake and exercise patient is on lisinopril 30 mg once a day and metoprolol 25 mg once a day (10) Generalized anxiety disorder: Comment: Living [facility] counselling Code(s): F41.1 - Generalized anxiety disorder Plan: Continue with counseling and therapy (11) Recurrent UTI: Code(s): N39.0 - Urinary tract infection, site not specified Plan: Patient follows up with urology has been placed on Myrbetriq Orders: Orders Complete Blood Count Auto Diff 3 Months E11.65 - Type 2 diabetes mellitus with hyperglycemia Comprehensive Met. Panel 3 Months E11.65 - Type 2 diabetes mellitus with hyperglycemia Free T4 (Free Thyroxine) 3 Months E11.65 - Type 2 diabetes mellitus with hyperglycemia Lipid Panel 3 Months E11.65 - Type 2 diabetes mellitus with hyperglycemia, E78.00 - Pure hypercholesterolemia, unspecified Vitamin D 25-OH Total 3 Months E11.65 - Type 2 diabetes mellitus with hyperglycemia AMB Hemoglobin A1c Today Z13.9 - Encounter for screening, unspecified Thyroid Stimulating Hormone 3 Months E11.65 - Type 2 diabetes mellitus with hyperglycemia Vitamin B12 and Folate 3 Months E11.65 - Type 2 diabetes mellitus with hyperglycemia Hemoglobin A1c 3 Months E11.65 - Type 2 diabetes mellitus with hyperglycemia UA w Microscopic 3 Months E11.65 - Type 2 diabetes mellitus with hyperglycemia Medications: New nicotine 1 patch transdermal Q24H 28 ea 1RF Z72.0 - Tobacco use empagliflozin (Jardiance) 10 mg PO DAILY 30 tabs 3RF E11.65 - Type 2 diabetes mellitus with hyperglycemia [RECLINER] As directed 1 ea 0RF M16.0 - Bilateral primary osteoarthritis of hip nicotine 1 patch transdermal DAILY 28 ea 0RF Z72.0 - Tobacco use Changed From [Pad bladder ultra] As directed 4 times day 200 ea 0RF To [Pad bladder ultra] As directed 8 times day 200 ea 0RF Refilled [incontinent wipes] As directed 8 ea 0RF R32 - Unspecified urinary incontinence, R35.0 - Frequency of micturition [WIPES] As directed 8 ea 12RF R32 - Unspecified urinary incontinence Coding Level of Care Code Est Pt Level 4 (71953) Diagnoses Tobacco abuse Z72.0 Type 2 diabetes mellitus with hyperglycemia, without long-term current use of insulin E11.65 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 transplanted heart: [place] heart Acquired hypothyroidism E03.9 Hypothyroidism type: acquired Hypercholesterolemia E78.00 Essential hypertension I10 Hypertension type: essential hypertension Generalized anxiety disorder F41.1 Recurrent UTI N39.0
== END 2024-01-06 13:39 | disposition home or self-care (01) ==
PROVIDERS: PCP Internal Medicine; Visit Provider Internal Medicine
DX: E11.65 Type 2 diabetes mellitus with hyperglycemia (principal); E66.9 Obesity, unspecified; J43.9 Emphysema, unspecified; Z68.31 Body mass index [BMI] 31.0-31.9, adult; Z72.0 Tobacco use; K21.9 Gastro-esophageal reflux disease without esophagitis; I25.10 Atherosclerotic heart disease of native coronary artery without angina pectoris; E03.9 Hypothyroidism, unspecified; E78.00 Pure hypercholesterolemia, unspecified; I10 Essential (primary) hypertension; F41.1 Generalized anxiety disorder; N39.0 Urinary tract infection, site not specified
CPT/HCPCS: 83036; 99214

== ENCOUNTER 2024-02-24 10:08 | Outpatient (REF) | payer OTHER, SELFPAY ==
[2024-02-24 13:33] LABS: Appearance Urine Cloudy; Color Urine Yellow; Glucose Urine UA >=1000 mg/dL (Negative); Leukocyte Esterase Urine Moderate (2+) (Negative); Nitrite Urine Negative (Negative); PH 5.5 (5.0-9.0); Specific Gravity - Urine 1.025 (1.005-1.025); UMIC TRIGGER UACC YES; Urine Blood Moderate (2+) (Negative); Urine Ketones Negative (Negative); Urine Protein 30 (1+) mg/dL (Neg-Trace)
[2024-02-24 13:37] LABS: Bacteria Urine 4+ (None Seen); Hyaline Casts Urine 0-2 /LPF (0-2); Squamous Epithelial Cell Urine 0-2 /HPF (0-2); UACC Culture Trigger YES; WBC Urine >50 /HPF (0-5)
== END 2024-02-24 10:09 | disposition home or self-care (01) ==
LOC: HO.HMGCLDS 10:08
PROVIDERS: PCP Internal Medicine; Visit Provider Internal Medicine
DX: R30.0 Dysuria (principal); N39.0 Urinary tract infection, site not specified; B96.89 Other specified bacterial agents as the cause of diseases classified elsewhere
CPT/HCPCS: 81001; 87086; 87088; 87186

== ENCOUNTER 2024-03-08 14:13 | Outpatient (REF) | payer OTHER, SELFPAY ==
--- NOTE | ~2024-03-08 | MM_ITS ---
EXAMINATION: MM DIAGNOSTIC DIGITAL BREAST TOMOSYNTHESIS, RIGHT US BREAST LIMITED, RIGHT MAMMOGRAPHY: CLINICAL INFORMATION: Diagnostic; evaluate one view asymmetry CC only, just lateral to nipple line, anterior one third. Evaluate additional focal asymmetry upper slightly inner right breast, posterior one third. Of note, patient does report several falls and injuries to the right breast in past few years. No history of surgery. COMPARISON: Mammography: Screening mammography 01/06/2024. Exams dating back to 2017. TECHNIQUE: Digital breast tomosynthesis is performed in both the craniocaudal and mediolateral oblique views along with computer-aided detection (CAD). Synthesized 2D images are generated from the tomosynthesis. FINDINGS: There are scattered areas of fibroglandular density (ACR BI-RADS breast composition Category b). -Focal asymmetric density posterior depth upper inner right breast is reniform with a small fatty notch, findings consistent with a normal intramammary lymph node. This is benign. -There is a peripherally calcified oil cysts in the 12:00 axis right breast measuring approximately 3 mm in diameter. This is benign. -Focal asymmetry in the 2:00 axis right breast anterior depth persists on spot compression views, measuring approximately 4 mm, with questionable associated architectural distortion. This is not definitive. There appear to be a few faint punctate associated microcalcifications. This will be evaluated with ultrasound. -No additional suspicious findings. ULTRASOUND: CLINICAL INFORMATION: As above. COMPARISON: None relevant. TECHNIQUE: Targeted sonographic evaluation was performed using a high frequency linear transducer. Right breast was examined from the 9:00 axis to the 1:00 axis, to include the area of mammographic concern. Selected archived documentation. FINDINGS: RIGHT BREAST: -At the 12:00 axis, 4 cm from the nipple, there is a peripherally calcified 2 x 3 x 3 mm oil cyst with edge shadowing. This is benign. -At the 11:00 axis right breast, 3 cm from the nipple, there is a small minimally hypoechoic oval slightly lobular mass abutting a prominent Delfin's ligament, with minimal border irregularity superiorly, measuring 5 x 3 x 2 mm. There are no posterior features although there is a small vessel seen leading to the finding. This appears to correlate well in position and appearance with the mammographic finding. This may represent a focus of fat necrosis but is indeterminant. Ultrasound-guided biopsy recommended with clip placement and postprocedure mammography (the patient cannot tolerate a prone position for stereotactic biopsy). -No additional abnormal findings. MM/MM tomosynthesis added views R IMPRESSION: -Indeterminate oval mass, possibly fat necrosis not definitive, measuring 5 x 3 x 2 mm on sonography correlating with the focal asymmetry in the 11:00 axis right breast, 3 cm from the nipple, as described above. ULTRASOUND-GUIDED BIOPSY WITH CLIP PLACEMENT recommended for definitive characterization. -Benign findings as detailed. -Findings and recommendations were discussed with the patient in detail, who appears in understanding. OVERALL ASSESSMENT: Mammography: BI-RADS 4 - Suspicious finding Ultrasound: BI-RADS 4 - Suspicious finding RECOMMENDATION: Biopsy recommended This patient's information was entered into a reminder system with a target due date for their next mammogram. Electronically signed by: Asa Wilcox MD 03/08/2024 04:42 PM EDT
== END 2024-03-08 14:14 | disposition home or self-care (01) ==
LOC: HO.MAMMO 14:13
PROVIDERS: PCP Internal Medicine; Visit Provider Internal Medicine
DX: N64.89 Other specified disorders of breast (principal)
CPT/HCPCS: 76642; 77061; 77065

== ENCOUNTER → 2024-03-08 14:30 | Outpatient (BNV) | payer OTHER, SELFPAY | PROVIDERS: PCP Internal Medicine; Visit Provider Radiology Diagnostic Radiology | DX: R92.1 Mammographic calcification found on diagnostic imaging of breast (principal) | CPT/HCPCS: 76642; 77065; G0279 ==

== ENCOUNTER 2024-03-15 13:11 | Outpatient (AMB) | payer OTHER, SELFPAY ==
--- NOTE | 2024-03-15 13:12 | A.OFFVIS_ITS ---
Vital Signs 03/15/24 13:20 Height 5 ft 1 in Weight 167 lb BMI 31.6 BP 128/58 L Blood Pressure Location Rt brachial Position Sitting Pulse 73 Intake Visit Reasons: US Biopsy Rt Breast 11 o'clock density Intake Note: Patient referred by [facility] for [facility] guided bx on Rt br @ 11o'clock density. Patient c/o: feeling nervous about breast findings and bx. States all previous breast exams have been negative. RT Br and MM: 03-08-2024. Special Delivery Messenger Required: No Accompanied by: Self / Same As Patient Allergies LATEX Allergy (Intermediate, Verified 03/15/24 13:19) rash MOLD Allergy (Intermediate, Verified 03/15/24 13:19) rash NONORGANIC FOOD Allergy (Intermediate, Verified 03/15/24 13:19) diarrhea Yeast Allergy (Intermediate, Verified 03/15/24 13:19) Diarrhea Medication List - Last Reconciled 03/15/24 by Atilio Love MD albuterol sulfate 90 mcg/actuation (Proventil HFA) 2 puffs inhalation Q6H PRN ammonium lactate 12% 1 appl topical BID aspirin (Adult Low Dose Aspirin) 81 mg PO DAILY atorvastatin 80 mg PO DAILY [BEDSIDE COMMODE As directed] betamethasone dipropionate 0.05% apply to hands twice daily Breo Ellipta 200-25 mcg/dose (fluticasone furoate-vilanterol) 1 ea PO DAILY NS cholecalciferol (vitamin D3) 25 mcg PO DAILY clonazepam 1 mg PO Q8H [commode As directed] [diabetic shoes As directed] empagliflozin (Jardiance) 10 mg PO DAILY estradiol 0.01%(0.1mg/gram) vaginally 3 times a week; pea sized amount to urethra 3 times a week 30 days ezetimibe (Zetia) 10 mg PO BEDTIME flash glucose scanning reader (HESIODOStyle Dany 2 [place]) As directed flash glucose sensor (FreeStyle Dany 2 Sensor kit) As directed fluticasone propionate 50 mcg/actuation 2 sprays intranasal DAILY gabapentin 100 mg PO BEDTIME [GRABBER TOOL As directed] hydrocortisone 2.5% (Proctosol HC) 1 appl IN BID-QID PRN incontinence pad, liner, disp 8 pads per day [id number] Contour Plus BC pad , Inco, Max, swo incontinence pad, liner, disp As directed [incontinent wipes As directed] lactulose 15 mL PO DAILY 90 days levothyroxine 100 mcg PO DAILY lisinopril 30 mg PO DAILY 90 days metformin 500 mg PO BID 30 days metoprolol succinate ER 25 mg PO DAILY mirabegron ER (Myrbetriq) 50 mg PO DAILY miscellaneous medical supply As directed nicotine 1 patch transdermal Q24H nicotine 1 patch transdermal DAILY nitroglycerin 0.4 mg sublingual Q5M PRN 30 days nystatin (Nystop) 1 appl topical BID nystatin 2 mL PO TID 15 days oxycodone 5 mg PO BID 30 days [Pad bladder ultra As directed 8 times day ] phenazopyridine (Pyridium) 200 mg PO TID PRN [RECLINER As directed] sulfamethoxazole-trimethoprim 800-160 mg (Bactrim DS) 1 tab PO BID tafluprost (PF) 0.0015% (Zioptan (PF)) 1 drp ophthalmic (eye) QPM timolol maleate (PF) 0.5% 1 drp ophthalmic (eye) BID [WIPES As directed] HPI Comments Details: Patient presents for mammographically and sonographically suspicious right breast lesion. She herself has no breast issues or complaints. She does occasional self-breast exams. She is quite diligent about having annual mammography. She has no breast issues or complaints. She denies any pain, discharge, skin changes. Her weight, energy, and appetite are stable. Patient has hip issues and has fallen a few times and is wondering if trauma to the breast may have caused this lesion. Family history maternal grandmother had breast cancer. Menstrual history G-2 P2. Patient was family has history of variety of cancers ranging from skin cancer to pancreatic cancer as well as history of abdominal aortic aneurysms. She is being followed for the latter with serial ultrasounds. Chart and radiographic studies were reviewed and patient evaluated [facility] Medical History (Updated 03/15/24 @ 13:31 by Atilio Love MD) Anxiety and depression Thrush, oral Allergic rhinitis Franky's disease Goiter diffuse Cataract Glaucoma Tobacco abuse Type 2 diabetes mellitus with hyperglycemia GERD (gastroesophageal reflux disease) Obesity (BMI 30-39.9) COPD (chronic obstructive pulmonary disease) Coronary artery disease Carpal tunnel syndrome Hypercholesterolemia Hypothyroid Hypertension Surgical History Hx of section History of tubal ligation Family History Father Myocardial infarct Maternal Grandmother Breast cancer Mother Pancreatic cancer Sister Bipolar 1 disorder Other Mental problem Social History Household Members: Family Housing: House Do you presently have visiting nurse or other home services: No Alcohol intake: current Alcohol intake frequency: holidays/special occasions only Patient Tobacco Use Status: Current everyday Tobacco user Tobacco use type: Cigarette Cigarettes Per Day: 4 Years Smoked: 4 cigarettes a day e-Cigarette/Vaping Use: Currently Using Advance Directives Date on File: 03/21/22 service: No Current occupational status: disabled Cognitive needs: No Hearing needs: No Vision needs: Yes Physical Exam Vital Signs: Last Vital Signs Pulse 73 03/15/24 13:20 BP 128/58 L 03/15/24 13:20 BMI result Body Mass Index 31.6 Chest Other: No obvious cervical, periclavicular, or axillary adenopathy bilaterally. Bilateral breast exam demonstrates no obvious mass, discharge, skin changes or tenderness. GI Other: Abdomen Marbin, soft, benign Assessment & Plan Assessment & Plan (1) Breast lesion on mammography: Code(s): R92.8 - Other abnormal and inconclusive findings on diagnostic imaging of breast Category: Medical Plan Patient was tentatively scheduled for radiographic biopsy of the right breast lesion on 03/17 at [facility]. She will see me a roughly a week later for follow-up and review of pathology reports. All questions answered. Orders: Orders US breast ndl core biopsy RT 03/17/24 R92.8 - Other abnormal and inconclusive findings on diagnostic imaging of breast Coding Level of Care Code New Pt Level 4 (33775) Diagnoses Breast lesion on mammography R92.8
[2024-03-15 13:20] VITALS: BP 128/58; PULSE 73; BMI 31.6
== END 2024-03-15 13:34 | disposition home or self-care (01) ==
LOC: HO.HGS 13:12
PROVIDERS: PCP Internal Medicine; Visit Provider Surgery
DX: R92.8 Other abnormal and inconclusive findings on diagnostic imaging of breast (principal)
CPT/HCPCS: 99204

== ENCOUNTER → 2024-03-15 13:11 | Outpatient (BNVA) | payer OTHER, SELFPAY | PROVIDERS: PCP Internal Medicine; Visit Provider Surgery | DX: R92.8 Other abnormal and inconclusive findings on diagnostic imaging of breast (principal) | CPT/HCPCS: 99202 ==

== ENCOUNTER 2024-03-17 09:46 | Outpatient (REF) | payer OTHER, SELFPAY ==
--- NOTE | ~2024-03-17 | US_ITS ---
ADDENDUM #1 ADDENDUM: Pathology results: Breast, right, 11:00 mass, ultrasound-guided core biopsy: -Scant benign breast tissue with no evidence of pseudoangiomatous stromal hyperplasia or malignancy. Please see pathology report for comprehensive information regarding the specimen. Pathology results are considered concordant with imaging expectations; see below and see original report. IMPRESSION/RECOMMENDATIONS: -Probably benign focus of asymmetry/superimposition artifact at the 11:00 axis right breast does not persist on postprocedural mammography, and has no ultrasound correlate given the above. Also, the biopsy clip lies approximately 2 cm superior and posterior to the focus of asymmetry, indicating index abnormality had no definite ultrasound correlate, and a benign focus of tissue was biopsied in an attempt to correlate. Please note, the patient could not tolerate a prone stereotactic biopsy, which would have been preferable. However, this index 11:00 asymmetry has current and stable imaging appearance most consistent with superimposition artifact. -Six-month interval follow-up spot compression views right breast recommended to ensure stability of this probably benign finding. BI-RADS 3: Probably benign. Short interval follow-up recommended. Electronically signed by: Asa Wilcox MD 03/21/2024 12:44 PM [facility] ORIGINAL REPORT PROCEDURE: US GUIDED BREAST BIOPSY, RIGHT CLINICAL INFORMATION: Subtle 4 mm focus architectural distortion right breast 11:00 axis, 3 cm from the nipple, seen on mammography, possible subtle ultrasound correlate for biopsy. Patient could not tolerate lying prone for stereotactic guidance. COMPARISON: Mammography and right breast ultrasound 03/08/2024, screening mammography 01/06/2024, dating back to 2019. PROCEDURAL DETAILS: The details of the procedure, as well as the risks, benefits, and alternatives to the procedure were explained to the patient in detail and all of her questions were answered, after which written informed consent was obtained. Site and side were confirmed. Prior to the procedure, sonography revealed the potential mammographic correlate, the small minimally hypoechoic oval possible mass 11:00 axis right breast, 3 cm from the nipple, measuring 5 x 3 x 2 mm. A time-out was performed, the lesion intended for biopsy was targeted, and the skin of the overlying right breast was then marked, prepped and draped in the usual sterile fashion. Using sonographic guidance, sterile technique, and 1% lidocaine without epinephrine for local anesthesia, multiple core biopsies were obtained through the targeted area with a 14G spring loaded ItrybeforeIbuyera core biopsy device. There was real-time confirmation of appropriate needle passage. Sampling was documented. At the completion of tissue sampling, a single open coil metallic clip was deposited at the biopsy site. There was no evidence of immediate complication. SPECIMEN: 3 well formed core samples were obtained DIGITAL POST-PROCEDURE MAMMOGRAPHY: Breast density: The tissue contains scattered areas of fibroglandular density. BI-RADS version 5, category B. There are no new mammographic findings demonstrated. The postprocedure 2-view direct digital mammogram reveals biopsy clip is located approximately 2 cm superior and posterior to the questionable distortion, likely not correlating directly. However, on today's post procedural views, the index mammographic abnormality in question does not persist as a three-dimensional structure, and is most likely superimposition of normal overlapping structures, and in retrospect appears present and similar on exams dating back to 2019 with no change in appearance. The patient tolerated the procedure well and, after assuring adequate hemostasis, was discharged in good condition after reviewing postbiopsy breast care instructions. Final pathology results are pending. IMPRESSION: 1. No immediate complication from ultrasound-guided percutaneous biopsy right breast. 2. Ultrasound was used to localize and guide marker clip placement. 3. The 2-view direct digital postprocedure mammogram reveals index 11:00 lesion was likely not sampled as described above, however index lesion fails to persist on the postprocedural 3-D mammography. Await pathology. If pathology is negative, a six-month follow-up will be recommended of this probably benign finding with no ultrasound correlate. 4. Final pathology results are pending. A separate report with final recommendations will be issued once these results are made available. Electronically signed by: Asa Wilcox MD 03/21/2024 10:44 AM [facility] US/US breast ndl core biopsy RT IMPRESSION: 1. No immediate complication from ultrasound-guided percutaneous biopsy right breast. 2. Ultrasound was used to localize and guide marker clip placement. 3. The 2-view direct digital postprocedure mammogram reveals index 11:00 lesion was likely not sampled as described above, however index lesion fails to persist on the postprocedural 3-D mammography. Await pathology. If pathology is negative, a six-month follow-up will be recommended of this probably benign finding with no ultrasound correlate. 4. Final pathology results are pending. A separate report with final recommendations will be issued once these results are made available. Electronically signed by: Asa Wilcox MD 03/21/2024 10:44 AM [facility]
[2024-03-17] MEDS: Sodium Bicarbonate 8.4% 50 MEQ/50 ML VIAL SUBCUT (11:13)
[2024-03-17] MEDS: Lidocaine HCl 1 % 20 ML VIAL 9 ML SUBCUT (11:15)
== END 2024-03-17 09:47 | disposition home or self-care (01) ==
LOC: HO.MAMMO 09:46
PROVIDERS: PCP Internal Medicine; Visit Provider Surgery
DX: Z12.31 Encounter for screening mammogram for malignant neoplasm of breast (principal); R92.8 Other abnormal and inconclusive findings on diagnostic imaging of breast
CPT/HCPCS: 19083; 77062; 77063; 77065; 77067; 88305; A4648; C1894; J2003

== ENCOUNTER → 2024-03-17 10:00 | Outpatient (BNV) | payer OTHER, SELFPAY | PROVIDERS: PCP Internal Medicine; Visit Provider Radiology Diagnostic Radiology | DX: Z12.31 Encounter for screening mammogram for malignant neoplasm of breast (principal) | CPT/HCPCS: 19083; 77065; G0279 ==

== ENCOUNTER 2024-03-29 13:43 | Outpatient (AMB) | payer OTHER, SELFPAY ==
--- NOTE | 2024-03-29 13:44 | MHC.OFFVIS ---
Vital Signs 03/29/24 13:47 Height 5 ft 1 in Weight 165 lb BMI 31.2 BP 108/56 L Blood Pressure Location Lt brachial Position Sitting Respiration 16 Pulse 67 Pulse Source Pulse Oximeter Pulse Oximetry (%) 98 Oxygen Delivery Method Room Air Intake Visit Reasons: COPD Allergies LATEX Allergy (Intermediate, Verified 03/29/24 14:03) rash MOLD Allergy (Intermediate, Verified 03/29/24 14:03) rash NONORGANIC FOOD Allergy (Intermediate, Verified 03/29/24 14:03) diarrhea Yeast Allergy (Intermediate, Verified 03/29/24 14:03) Diarrhea Medication List - Last Reconciled 03/29/24 by Linwood Orozco MD albuterol sulfate 90 mcg/actuation (Proventil HFA) 2 puffs inhalation Q6H PRN ammonium lactate 12% 1 appl topical BID aspirin (Adult Low Dose Aspirin) 81 mg PO DAILY atorvastatin 80 mg PO DAILY [BEDSIDE COMMODE As directed] betamethasone dipropionate 0.05% apply to hands twice daily Breo Ellipta 200-25 mcg/dose (fluticasone furoate-vilanterol) 1 ea PO DAILY NS cholecalciferol (vitamin D3) 25 mcg PO DAILY clonazepam 1 mg PO Q8H [commode As directed] [diabetic shoes As directed] empagliflozin (Jardiance) 10 mg PO DAILY estradiol 0.01%(0.1mg/gram) vaginally 3 times a week; pea sized amount to urethra 3 times a week 30 days ezetimibe (Zetia) 10 mg PO BEDTIME flash glucose scanning reader ([employer]EMOPT[employer]Style Dany 2 [place]) As directed flash glucose sensor (FreeStyle Dany 2 Sensor kit) As directed fluticasone propionate 50 mcg/actuation 2 sprays intranasal DAILY gabapentin 100 mg PO BEDTIME [GRABBER TOOL As directed] hydrocortisone 2.5% (Proctosol HC) 1 appl [place] BID-QID PRN incontinence pad, liner, disp As directed incontinence pad, liner, disp 8 pads per day [id number] Contour Plus BC pad , Inco, Max, swo [incontinent wipes As directed] lactulose 15 mL PO DAILY 90 days levothyroxine 100 mcg PO DAILY [LIFT RECLINER As directed] lisinopril 30 mg PO DAILY 90 days metformin 500 mg PO BID 30 days metoprolol succinate ER 25 mg PO DAILY mirabegron ER (Myrbetriq) 50 mg PO DAILY miscellaneous medical supply As directed nicotine 1 patch transdermal Q24H nicotine 1 patch transdermal DAILY nitroglycerin 0.4 mg sublingual Q5M PRN 30 days nystatin (Nystop) 1 appl topical BID nystatin 2 mL PO TID 15 days oxycodone 5 mg PO BID 30 days [Pad bladder ultra As directed 8 times day ] phenazopyridine (Pyridium) 200 mg PO TID PRN sulfamethoxazole-trimethoprim 800-160 mg (Bactrim DS) 1 tab PO BID tafluprost (PF) 0.0015% (Zioptan (PF)) 1 drp ophthalmic (eye) QPM timolol maleate (PF) 0.5% 1 drp ophthalmic (eye) BID [WIPES As directed] HPI HPI COPD: Details: This 69 years old female, is here for follow-up after 6 months, for her COPD and allergic rhinitis. She claims that the breathing has been fairly stable, and since she is using Breo, she hardly needs to use the rescue inhaler. She has very little cough or wheezing. She does not walk fast due to her degenerative arthritis of the hips, so denies any shortness of breath She does have nasal congestion almost on a daily basis, uses Flonase for which she needs a prescription. Most of the complaints were about her painful hips and she is desperately awaiting to have hip surgery. * Talked about her sister, Hebert , and she told me that Hebert is in a rehab facility after she broke her left femur. [facility] Medical History Anxiety and depression Thrush, oral Allergic rhinitis Franky's disease Goiter diffuse Cataract Glaucoma Tobacco abuse Type 2 diabetes mellitus with hyperglycemia GERD (gastroesophageal reflux disease) Obesity (BMI 30-39.9) COPD (chronic obstructive pulmonary disease) Coronary artery disease Carpal tunnel syndrome Hypercholesterolemia Hypothyroid Hypertension Surgical History Hx of section History of tubal ligation Family History Father Myocardial infarct Maternal Grandmother Breast cancer Mother Pancreatic cancer Sister Bipolar 1 disorder Other Mental problem Social History Household Members: Family Housing: House Do you presently have visiting nurse or other home services: No Alcohol intake: current Alcohol intake frequency: holidays/special occasions only Patient Tobacco Use Status: Current everyday Tobacco user Tobacco use type: Cigarette Cigarettes Per Day: 4 Years Smoked: 4 cigarettes a day e-Cigarette/Vaping Use: Currently Using Advance Directives Date on File: 03/21/22 service: No Current occupational status: disabled Cognitive needs: No Hearing needs: No Vision needs: Yes Review of Systems Const All systems reviewed & are unremarkable except as noted in HPI and below (I also reviewed PFSH .) Eyes Reports no additional complaints ENT Reports nasal congestion and Reports nasal discharge Card Denies chest pain, Denies irregular heart rhythm and Denies leg edema Resp Reports as per HPI GI Reports no additional complaints Reports no additional complaints Musc Reports back pain (Mild to moderate off and on) Skin/Breast Reports system reviewed and no additional complaints, except as documented Neuro Reports no additional complaints Psych Reports anxiety Endo Reports no additional complaints Physical Exam Vital Signs: Last Vital Signs Pulse 67 03/29/24 13:47 Resp 16 03/29/24 13:47 BP 108/56 L 03/29/24 13:47 Pulse Ox 98 03/29/24 13:47 Oxygen Delivery Method Room Air 03/29/24 13:47 BMI result Body Mass Index 31.2 Const General: comfortable, no acute distress, alert and awake Orientation/consciousness: patient oriented x3 HEENT Head: Yes normal to inspection General nose exam: No nasal polyps present, No nasal discharge present and Other nasal findings present (Bilateral nasal congestion) Face and sinus: Yes sinuses nontender Mouth: oropharynx normal (No ulcers of or mucosal white spots were noted.) Eyes General: appearance normal, both eyes and all related structures Neck Neck: Yes normal visual inspection, Yes no lymphadenopathy, Yes trachea midline and Yes no JVD Thyroid: Thyroid normal Chest Chest palpation & inspection: normal inspection of the chest, normal palpation of entire chest wall and no tenderness Resp Other: Percussion note resonant, breath sounds are slightly distant with prolonged expiratory phase I did not hear any wheezes rhonchi or crepitations today. Cardio Palpation: normal PMI Rate: regular rate Rhythm: regular rhythm Heart sounds: no gallops and no murmurs GI Palpation (GI): Soft to palpation, nontender, No hepatosplenomegaly present and no masses Auscultation: normal bowel sounds Back/Spine/Pelvis Thoracic/Lumbar Spine: thoracic and lumbar spine normal to inspection, thoraco-lumbar ROM limited and thoraco-lumbar spasm Skin General skin exam: no rashes or lesions noted Neuro General: patient oriented x3 and no focal motor deficits Cranial nerves: Yes CN's II-XII intact bilaterally Extrem General: Yes normal to inspection, Yes no clubbing, cyanosis or edema and Yes no calf tenderness Psych Appearance: grossly normal and well kempt Speech and movement: Normal speech and movement present Assessment & Plan Assessment & Plan (1) Allergic rhinitis: Comment: She has nasal congestion almost on a daily basis. Uses Flonase 2 spray in each nostril daily and it helps to keep the nose clear. Code(s): J30.9 - Allergic rhinitis, unspecified Category: Medical Plan: Advised to continue using Flonase nasal spray 2 spray in each nostril daily (2) Tobacco abuse: Comment: SHE CONTINUES TO SMOKE ABOUT 4-5 CIGARETTES A DAY. COUNSELED THAT SHE SHOULD STOP SMOKING COMPLETELY . . HER COUGH AND CONGESTED FEELING IN THE UPPER AIRWAYS IS MOSTLY SECONDARY TO SMOKING. SHE IS TRYING HER BEST TO CUT DOWN THE NUMBER OF CIGARETTES. Code(s): Z72.0 - Tobacco use Category: Medical Plan: CONTINUE TO CUT DOWN THE NUMBER OF CIGARETTES AND SOON POSSIBLE QUIT COMPLETELY (3) COPD (chronic obstructive pulmonary disease): Comment: Chronic, mild to moderate COPD, and she also has moderate degree of restrictive disorder. Overall it is staying stable. Code(s): J44.9 - Chronic obstructive pulmonary disease, unspecified Category: Medical Qualifiers: COPD type: emphysema Emphysema type: unspecified Qualified Code(s): J43.9 - Emphysema, unspecified Plan: CONTINUE USING BREO 200-251 INHALATION DAILY Medications: Refilled fluticasone propionate 50 mcg/actuation 2 sprays intranasal DAILY 16 grams 5RF ALLERGIC rHINITIS J30.9 - Allergic rhinitis, unspecified Coding Level of Care Code Est Pt Level 3 (67584) Diagnoses Allergic rhinitis J30.9 Tobacco abuse Z72.0 Pulmonary emphysema, unspecified emphysema type J43.9 COPD type: emphysema Emphysema type: unspecified
[2024-03-29 13:47] VITALS: BP 108/56; PULSE 67; RESP 16; O2SAT 98; BMI 31.2
== END 2024-03-29 14:05 | disposition home or self-care (01) ==
PROVIDERS: PCP Internal Medicine; Visit Provider Internal Medicine
DX: J30.9 Allergic rhinitis, unspecified (principal); Z72.0 Tobacco use; J43.9 Emphysema, unspecified
CPT/HCPCS: 99213

== ENCOUNTER → 2024-03-29 13:43 | Outpatient (BNVA) | payer OTHER, SELFPAY | PROVIDERS: PCP Internal Medicine; Visit Provider Internal Medicine | DX: J43.9 Emphysema, unspecified (principal); J30.9 Allergic rhinitis, unspecified; F17.210 Nicotine dependence, cigarettes, uncomplicated | CPT/HCPCS: 99212 ==

== ENCOUNTER 2024-03-30 08:21 | Outpatient (AMB) | payer OTHER, SELFPAY ==
[2024-03-30 08:26] VITALS: BMI 31.2
--- NOTE | 2024-03-30 08:26 | MHC.OFFVIS ---
Vital Signs 03/30/24 08:26 Height 5 ft 1 in Weight 165 lb 0.009 oz BMI 31.2 Intake Visit Reasons: follow up US Biopsy Rt Breast 11 o'clock density Intake Note: This patient presents for follow-up assessment for breast biopsy results. Pt c/o; reports no complaints. [employer] Automatic Required: No Accompanied by: Self / Same As Patient Allergies LATEX Allergy (Intermediate, Verified 03/30/24 08:31) rash MOLD Allergy (Intermediate, Verified 03/30/24 08:31) rash NONORGANIC FOOD Allergy (Intermediate, Verified 03/30/24 08:31) diarrhea Yeast Allergy (Intermediate, Verified 03/30/24 08:31) Diarrhea Medication List - Last Reconciled 03/30/24 by Atilio Love MD albuterol sulfate 90 mcg/actuation (Proventil HFA) 2 puffs inhalation Q6H PRN ammonium lactate 12% 1 appl topical BID aspirin (Adult Low Dose Aspirin) 81 mg PO DAILY atorvastatin 80 mg PO DAILY [BEDSIDE COMMODE As directed] betamethasone dipropionate 0.05% apply to hands twice daily Breo Ellipta 200-25 mcg/dose (fluticasone furoate-vilanterol) 1 ea PO DAILY NS cholecalciferol (vitamin D3) 25 mcg PO DAILY clonazepam 1 mg PO Q8H [commode As directed] [diabetic shoes As directed] empagliflozin (Jardiance) 10 mg PO DAILY estradiol 0.01%(0.1mg/gram) vaginally 3 times a week; pea sized amount to urethra 3 times a week 30 days ezetimibe (Zetia) 10 mg PO BEDTIME flash glucose scanning reader ([employer] Dany 2 [place]) As directed flash glucose sensor (FreeStyle Dany 2 Sensor kit) As directed fluticasone propionate 50 mcg/actuation 2 sprays intranasal DAILY gabapentin 100 mg PO BEDTIME [GRABBER TOOL As directed] hydrocortisone 2.5% (Proctosol HC) 1 appl [place] BID-QID PRN incontinence pad, liner, disp As directed incontinence pad, liner, disp 8 pads per day [id number] Contour Plus BC pad , Inco, Max, swo [incontinent wipes As directed] lactulose 15 mL PO DAILY 90 days levothyroxine 100 mcg PO DAILY [LIFT RECLINER As directed] lisinopril 30 mg PO DAILY 90 days metformin 500 mg PO BID 30 days metoprolol succinate ER 25 mg PO DAILY mirabegron ER (Myrbetriq) 50 mg PO DAILY miscellaneous medical supply As directed nicotine 1 patch transdermal Q24H nicotine 1 patch transdermal DAILY nitroglycerin 0.4 mg sublingual Q5M PRN 30 days nystatin (Nystop) 1 appl topical BID nystatin 2 mL PO TID 15 days oxycodone 5 mg PO BID 30 days [Pad bladder ultra As directed 8 times day ] phenazopyridine (Pyridium) 200 mg PO TID PRN sulfamethoxazole-trimethoprim 800-160 mg (Bactrim DS) 1 tab PO BID tafluprost (PF) 0.0015% (Zioptan (PF)) 1 drp ophthalmic (eye) QPM timolol maleate (PF) 0.5% 1 drp ophthalmic (eye) BID [WIPES As directed] HPI Comments Details: Patient was status post right breast ultrasound-guided biopsy. The procedure was tolerated well by the patient. The radiographic findings and the pathology report are discordant. Radiologic recommendation is for repeat biopsy. [facility] Medical History Anxiety and depression Thrush, oral Allergic rhinitis Franky's disease Goiter diffuse Cataract Glaucoma Tobacco abuse Type 2 diabetes mellitus with hyperglycemia GERD (gastroesophageal reflux disease) Obesity (BMI 30-39.9) COPD (chronic obstructive pulmonary disease) Coronary artery disease Carpal tunnel syndrome Hypercholesterolemia Hypothyroid Hypertension Surgical History Hx of section History of tubal ligation Family History Father Myocardial infarct Maternal Grandmother Breast cancer Mother Pancreatic cancer Sister Bipolar 1 disorder Other Mental problem Social History Household Members: Family Housing: House Do you presently have visiting nurse or other home services: No Alcohol intake: current Alcohol intake frequency: holidays/special occasions only Patient Tobacco Use Status: Current everyday Tobacco user Tobacco use type: Cigarette Cigarettes Per Day: 4 Years Smoked: 4 cigarettes a day e-Cigarette/Vaping Use: Currently Using Advance Directives Date on File: 03/21/22 service: No Current occupational status: disabled Cognitive needs: No Hearing needs: No Vision needs: Yes Physical Exam Vital Signs: BMI result Body Mass Index 31.2 Chest Other: Resolving ecchymosis right breast status post biopsy. Exam status quo. Assessment & Plan Assessment & Plan (1) Breast lesion on mammography: Code(s): R92.8 - Other abnormal and inconclusive findings on diagnostic imaging of breast Category: Surgical Plan: Current plan is to arrange for repeat ultrasound-guided right breast biopsy indirect further therapy based on these results. Patient understands and arrangements were made for this. She will see me after the procedure. All questions answered Orders: Orders US breast ndl core biopsy RT Today R92.8 - Other abnormal and inconclusive findings on diagnostic imaging of breast Coding Level of Care Code Est Pt Level 4 (64785) Diagnoses Breast lesion on mammography R92.8
== END 2024-03-30 08:39 | disposition home or self-care (01) ==
PROVIDERS: PCP Internal Medicine; Visit Provider Surgery
DX: R92.8 Other abnormal and inconclusive findings on diagnostic imaging of breast (principal)
CPT/HCPCS: 99214

== ENCOUNTER → 2024-03-30 08:21 | Outpatient (BNVA) | payer OTHER, SELFPAY | PROVIDERS: PCP Internal Medicine; Visit Provider Surgery | DX: R92.8 Other abnormal and inconclusive findings on diagnostic imaging of breast (principal) | CPT/HCPCS: 99212 ==

== ENCOUNTER 2024-04-06 09:11 | Outpatient (REF) | payer OTHER, SELFPAY ==
[2024-04-06 10:06] LABS: MANUAL DIFF FLAG NO
[2024-04-06 10:18] LABS: Appearance Urine Clear; Color Urine Yellow; Glucose Urine UA >=1000 mg/dL (Negative); Leukocyte Esterase Urine Trace (Negative); Nitrite Urine Negative (Negative); PH 5.5 (5.0-9.0); UMIC TRIGGER UA YES; Urine Blood Negative (Negative); Urine Ketones Negative (Negative); Urine Protein Negative (Neg-Trace)
[2024-04-06 10:19] LABS: Basophils Absolute Auto 0.1 X10*3/uL (0.0-0.2); Basophils Percent Auto 0.6 % (0-2); Eosinophils Absolute Auto 0.2 X10*3/uL (0.0-0.4); Eosinophils Percent Auto 1.9 % (0-4); Hematocrit 43.5 % (37.0-47.0); Hemoglobin 14.5 g/dl (12.0-16.0); Imm Gran Abs Auto 0.08 X10*3/uL (0.00-0.03); Imm Gran Pct Auto 0.7 % (0.0-0.4); Lymphocytes Percent Auto 17.9 % (20-40); Mean Corpuscular HGB Conc 33.3 g/dl (31.0-35.0); Mean Corpuscular Hemoglobin 32.4 pg (27.0-33.0); Mean Corpuscular Volume 97.3 fL (80.0-98.0); Mean Platelet Volume 9.6 fL (9.4-12.3); Monocytes Percent Auto 8.6 % (2-11); Neutrophils Absolute Auto 7.8 x10*3/uL (2.0-8.3); Neutrophils Percent Auto 70.3 % (45-73); Platelet Count 174 X10*3/uL (160-400); Red Blood Count 4.47 X10*6/uL (4.20-5.50); Red Cell Distribution Width 13.9 % (11.0-16.0)
[2024-04-06 10:22] LABS: Bacteria Urine None Seen (None Seen); Hyaline Casts Urine 0-2 /LPF (0-2); RBC Urine 0-2 /HPF (0-2); Squamous Epithelial Cell Urine 0-2 /HPF (0-2); WBC Urine 0-5 /HPF (0-5)
[2024-04-06 10:28] LABS: Estimated Average Glucose 137 mg/dL; Hemoglobin A1C 165.7348 umol/L; Hemoglobin A1c % 6.4 % (<6.0); Total Hemoglobin (HGBA1C) 3596.3156 umol/L
[2024-04-06 10:52] LABS: Alanine Aminotransferase 35 U/L (0-31); Albumin Level 4.2 g/dL (3.5-5.0); Alkaline Phosphatase 81 U/L (39-117); Anion Gap 12 (12-20); Aspartate Amino Transferase 25 U/L (5-31); Bilirubin Total 0.6 mg/dL (0.0-1.0); Blood Urea Nitrogen 20 mg/dL (9-16); Calcium 10.4 mg/dL (8.4-10.2); Carbon Dioxide 26 mmol/L (22-29); Chloride 105 mmol/L (96-108); Cholesterol 95 mg/dL (<200); Estimated Glomerular Filt Rate > 60; Free T4 (Free Thyroxine) 1.29 ng/dL (0.71-1.85); Glucose Random 134 mg/dL (60-115); HDL Cholesterol 30 mg/dL (>40); LDL Cholesterol Calculated 44 mg/dL (<100); Potassium 5.2 mmol/L (3.3-5.1); Sodium 138 mmol/L (135-145); Total Protein 7.3 g/dL (6.5-8.0); Triglycerides 109 mg/dL (<150); Vitamin D 25-OH Total 52.1 ng/mL (>30)
[2024-04-06 11:21] LABS: Folate 10.9 ng/mL (> or = 4.0); Vitamin B12 398 pg/mL (200-900)
== END 2024-04-06 09:12 | disposition home or self-care (01) ==
LOC: HO.HMGCLDS 09:11
PROVIDERS: PCP Internal Medicine; Visit Provider Internal Medicine
DX: E11.65 Type 2 diabetes mellitus with hyperglycemia (principal); E78.00 Pure hypercholesterolemia, unspecified
CPT/HCPCS: 36415; 80053; 80061; 81001; 82306; 82607; 82746; 83036; 84439; 84443; 85025

== ENCOUNTER 2024-04-07 11:22 | Outpatient (AMB) | payer OTHER, SELFPAY ==
[2024-04-07 11:24] VITALS: BP 112/60; PULSE 71; O2SAT 97; BMI 30.6
--- NOTE | 2024-04-07 11:24 | MHC.PC.OV ---
Vital Signs 04/07/24 11:24 Height 5 ft 1 in Weight 162 lb BMI 30.6 BP 112/60 Blood Pressure Location Lt brachial Position Sitting Pulse 71 Pulse Source Pulse Oximeter Pulse Oximetry (%) 97 Oxygen Delivery Method Room Air Intake Visit Reasons: DM Metal Alloy Scientist Required: No Allergies LATEX Allergy (Intermediate, Verified 04/07/24 11:29) rash MOLD Allergy (Intermediate, Verified 04/07/24 11:29) rash NONORGANIC FOOD Allergy (Intermediate, Verified 04/07/24 11:29) diarrhea Yeast Allergy (Intermediate, Verified 04/07/24 11:29) Diarrhea Medication List - Last Reconciled 04/07/24 by Elysia Singh PA-C albuterol sulfate 90 mcg/actuation (Proventil HFA) 2 puffs inhalation Q6H PRN ammonium lactate 12% 1 appl topical BID aspirin (Adult Low Dose Aspirin) 81 mg PO DAILY atorvastatin 80 mg PO DAILY [BEDSIDE COMMODE As directed] betamethasone dipropionate 0.05% apply to hands twice daily Breo Ellipta 200-25 mcg/dose (fluticasone furoate-vilanterol) 1 ea PO DAILY NS cholecalciferol (vitamin D3) 25 mcg PO DAILY clonazepam 1 mg PO Q8H [commode As directed] [diabetic shoes As directed] empagliflozin (Jardiance) 10 mg PO DAILY estradiol 0.01%(0.1mg/gram) vaginally 3 times a week; pea sized amount to urethra 3 times a week 30 days ezetimibe (Zetia) 10 mg PO BEDTIME flash glucose scanning reader (Net[employer]Style Dany 2 Lindsay) As directed flash glucose sensor (FreeStyle Dany 2 Sensor kit) As directed fluticasone propionate 50 mcg/actuation 2 sprays intranasal DAILY gabapentin 100 mg PO BEDTIME [GRABBER TOOL As directed] hydrocortisone 2.5% (Proctosol HC) 1 appl AL BID-QID PRN incontinence pad, liner, disp As directed incontinence pad, liner, disp 8 pads per day [id number] Contour Plus BC pad , Inco, Max, swo [incontinent wipes As directed] lactulose 15 mL PO DAILY 90 days levothyroxine 100 mcg PO DAILY [LIFT RECLINER As directed] lisinopril 30 mg PO DAILY 90 days metformin 500 mg PO BID 30 days metoprolol succinate ER 25 mg PO DAILY mirabegron ER (Myrbetriq) 50 mg PO DAILY miscellaneous medical supply As directed nicotine 1 patch transdermal Q24H nicotine 1 patch transdermal DAILY nitroglycerin 0.4 mg sublingual Q5M PRN 30 days nystatin (Nystop) 1 appl topical BID nystatin 2 mL PO TID 15 days oxycodone 5 mg PO BID 30 days [Pad bladder ultra As directed 8 times day ] phenazopyridine (Pyridium) 200 mg PO TID PRN tafluprost (PF) 0.0015% (Zioptan (PF)) 1 drp ophthalmic (eye) QPM timolol maleate (PF) 0.5% 1 drp ophthalmic (eye) BID [WIPES As directed] Tobacco use date assessed: 01/06/24 Fall risk assessment: No Falls in past year Last assessed Fall Risk: 04/07/24 Dental Screening Dental Screen Date: 01/06/24 HPI DM HPI Details 69-year-old female with past medical history of diabetes mellitus, coronary artery disease, hypercholesterolemia, COPD, GERD, hypothyroid and hypertension last seen by Dr. Whitman December 2023 coming in for follow up.? In review of the notes patient was seen by [facility] General surgery 03/30/2024 for breast lesion on mammography with plan to repeat ultrasound-guided right breast biopsy.? She was seen by pulmonology 03/19/2024 advised to stopped smoking and continue on current medication. Patient states she is feeling generally well and has no acute concerns today. She does mentioned she has a 5 lb weight loss and has been working on her diet. [facility] Medical History Anxiety and depression Thrush, oral Allergic rhinitis Franky's disease Goiter diffuse Cataract Glaucoma Tobacco abuse Type 2 diabetes mellitus with hyperglycemia GERD (gastroesophageal reflux disease) Obesity (BMI 30-39.9) COPD (chronic obstructive pulmonary disease) Coronary artery disease Carpal tunnel syndrome Hypercholesterolemia Hypothyroid Hypertension Surgical History Hx of section History of tubal ligation Family History Father Myocardial infarct Maternal Grandmother Breast cancer Mother Pancreatic cancer Sister Bipolar 1 disorder Other Mental problem Social History Household Members: Family Housing: House Do you presently have visiting nurse or other home services: No Alcohol intake: current Alcohol intake frequency: holidays/special occasions only Patient Tobacco Use Status: Current everyday Tobacco user Tobacco use type: Cigarette Cigarettes Per Day: 4 Years Smoked: 4 cigarettes a day e-Cigarette/Vaping Use: Currently Using Advance Directives Date on File: 03/21/22 service: No Current occupational status: disabled Cognitive needs: No Hearing needs: No Vision needs: Yes Questionnaire Thrive Questionnaire Date Thrive assessed: 07/03/23 AUDIT C Alcohol Use Questionnaire (AUDIT-C) 1. How often do you have a drink containing alcohol?: Never 2. How many drinks containing alcohol do you have on a typical day when you are drinking?: 1 or 2 3. How often do you have six or more drinks on one occasion?: Never Total Score: 0 RYLAN-7 AMB Questionnaire RYLAN-7 Date RYLAN - 7 assessed: 07/03/23 Source: Developed by Drs. Ras Asif, Kim Jones, Dyllan Norris and colleagues, with an educational kosta from [employer]. Review of Systems Const Denies body aches, Denies chills, Denies fever(s), Denies headache(s) and Denies poor appetite Eyes Reports no additional complaints ENT Denies dysphagia, Denies dizziness, Denies headache(s) and Denies odynophagia Card Denies chest pain, Denies syncope, Denies edema, Denies irregular heart rhythm, Denies lightheadedness and Denies dyspnea Resp Denies cough and Denies dyspnea GI Denies abdominal pain, Denies constipation, Denies dysphagia, Denies diarrhea, Denies nausea, Denies odynophagia and Denies vomiting Reports no additional complaints Musc Reports no additional complaints and Denies abnormal gait Skin/Breast Reports system reviewed and no additional complaints, except as documented Neuro Denies abnormal gait, Denies dizziness, Denies syncope and Denies headache(s) Psych Reports no additional complaints Physical exam (Primary Care) Vital Signs: Last Vital Signs Pulse 71 04/07/24 11:24 BP 112/60 04/07/24 11:24 Pulse Ox 97 04/07/24 11:24 Oxygen Delivery Method Room Air 04/07/24 11:24 BMI result Body Mass Index 30.6 Tobacco/Smoking Status: Tobacco use Status Tobacco use date assessed 01/06/24 04/07/24 11:25 Patient Tobacco Use Status Current everyday Tobacco 04/07/24 11:25 Tobacco use type Cigarette 04/07/24 11:25 e-Cigarette/Vaping Use Currently Using 04/07/24 11:25 Thrive Assessment: Date of Thrive Assessment Date Thrive assessed 07/03/23 04/07/24 11:25 Const General: cooperative, healthy appearing, comfortable and no acute distress Orientation/consciousness: patient oriented x3 HENMT Head: Yes normocephalic Ears: hearing grossly normal bilaterally General nose exam: Normal external nose present Eyes General: appearance normal, both eyes and all related structures Conjunctivae: conjunctivae normal Neck Neck: Yes full ROM and Yes no lymphadenopathy Resp Effort & Inspection: normal respiratory effort Auscultation: clear to auscultation bilaterally, no crackles, no rales, no rhonchi and no wheezes Cardio Rate: regular rate Rhythm: regular rhythm Skin General skin exam: no rashes or lesions noted Neuro General: patient oriented x3 Gait exam (Neuro): Normal gait present Extrem General: Yes normal to inspection, Yes full ROM and No edema Psych Affect: normal affect Attitude: cooperative Insight: Good insight present (Psych) Judgement: Good judgement present (Psych) Coding Level of Care Code Est Pt Level 3 (82490) Diagnoses Tobacco abuse Z72.0 Type 2 diabetes mellitus with hyperglycemia, without long-term current use of insulin E11.65 Diabetes mellitus technician terminal and repeater insulin use: without technician terminal and repeater use Gastroesophageal reflux disease without esophagitis K21.9 Esophagitis presence: without esophagitis Obesity (BMI 30-39.9) E66.9 Pulmonary emphysema, unspecified emphysema type J43.9 COPD type: emphysema Emphysema type: unspecified Coronary artery disease involving [place] coronary artery of [place] heart without angina pectoris I25.10 Associated angina: without angina Coronary Disease-Associated Artery/Lesion type: [place] artery [place] vs. transplanted heart: [place] heart Hypercholesterolemia E78.00 Essential hypertension I10 Hypertension type: essential hypertension Hyperkalemia E87.5 Hypercalcemia E83.52 Assessment & Plan Assessment & Plan (1) Tobacco abuse: Comment: SHE CONTINUES TO SMOKE ABOUT 4-5 CIGARETTES A DAY. COUNSELED THAT SHE SHOULD STOP SMOKING COMPLETELY . . HER COUGH AND CONGESTED FEELING IN THE UPPER AIRWAYS IS MOSTLY SECONDARY TO SMOKING. SHE IS TRYING HER BEST TO CUT DOWN THE NUMBER OF CIGARETTES. Code(s): Z72.0 - Tobacco use Category: Medical Plan: Smoking cigarettes and the use of tobacco can be harmful. We discussed the importance of stopping and options to aid in smoking cessation. Rx sent for nicotine gum. (2) Type 2 diabetes mellitus with hyperglycemia: Comment: Dr. Mujica and Dr. Zaldivar Code(s): E11.65 - Type 2 diabetes mellitus with hyperglycemia Category: Medical Qualifiers: Diabetes mellitus technician terminal and repeater insulin use: without technician terminal and repeater use Qualified Code(s): E11.65 - Type 2 diabetes mellitus with hyperglycemia Plan: Decrease the amount of carbohydrates such as pasta, bread, rice, and potatoes and limit the amount of sweets. Although fruits are generally healthy they should be eaten in moderation as they are still high in sugar. Hemoglobin A1c goal of less than 7%. A1c in the clinic today 6.4% continue on current medication. (3) GERD (gastroesophageal reflux disease): Code(s): K21.9 - Gastro-esophageal reflux disease without esophagitis Category: Medical Qualifiers: Esophagitis presence: without esophagitis Qualified Code(s): K21.9 - Gastro-esophageal reflux disease without esophagitis Plan: Avoid trigger foods such as citrus, tomato products, soda, caffeine, spicy foods and other foods that may be irritating to your stomach. Avoid laying flat 3-4 hours after eating and elevate the head of the bed 30 degrees to prevent acid from moving into the esophagus. (4) Obesity (BMI 30-39.9): Code(s): E66.9 - Obesity, unspecified Category: Medical Plan: Healthy diet and regular exercise is encouraged. (5) COPD (chronic obstructive pulmonary disease): Comment: Chronic, mild to moderate COPD, and she also has moderate degree of restrictive disorder. Overall it is staying stable. Code(s): J44.9 - Chronic obstructive pulmonary disease, unspecified Category: Medical Qualifiers: COPD type: emphysema Emphysema type: unspecified Qualified Code(s): J43.9 - Emphysema, unspecified Plan: Patient currently following with pulmonology, continue on inhalers. (6) Coronary artery disease: Comment: Echo April 2019 normal LV Pseudonormal filling, pericardial effusion July 2019 moderate pericardial effusion PCI done [facility] June 2015 Code(s): I25.10 - Atherosclerotic heart disease of [place] coronary artery without angina pectoris Category: Medical Qualifiers: Associated angina: without angina Coronary Disease-Associated Artery/Lesion type: [place] artery [place] vs. transplanted heart: [place] heart Qualified Code(s): I25.10 - Atherosclerotic heart disease of [place] coronary artery without angina pectoris Plan: Advised good control of cholesterol, blood pressure and blood sugars. (7) Hypercholesterolemia: Code(s): E78.00 - Pure hypercholesterolemia, unspecified Category: Medical Plan: Avoid foods that are high in cholesterol such as red meat, fried foods, eggs and baked goods. Triglyceride goal of less than 150 and LDL goal of less than 70. Continue on atorvastatin 80 mg and Zetia (8) Hypertension: Code(s): I10 - Essential (primary) hypertension Category: Medical Qualifiers: Hypertension type: essential hypertension Qualified Code(s): I10 - Essential (primary) hypertension Plan: Continue on current blood pressure medication. Avoid salt intake and encourage healthy diet and regular exercise. (9) Hyperkalemia: Code(s): E87.5 - Hyperkalemia Category: Medical Plan: Elevated potassium on last blood work patient did state the tourniquet was left on for extended period of time. We will redraw in 1 week. (10) Hypercalcemia: Code(s): E83.52 - Hypercalcemia Category: Medical Plan: Patient continues to have elevated calcium despite not taking any fhzr-und-moehrgu supplements. Ordered for ionized calcium and parathyroid hormone for further investigation. Plan This note was constructed using voice recognition software. While every effort has been made to ensure accuracy and pasting machine operator, still areas may have been included sometimes these areas may affect the content or meeting of the given symptoms. Total time spent caring for the patient today was 20 minutes. This includes time spent before the visit reviewing the chart, time spent during the visit, and time spent after the visit and documentation. Orders: Orders Potassium 1 Week E87.5 - Hyperkalemia Parathyroid Hormone Intact Today E83.52 - Hypercalcemia Calcium, Ionized Today E83.52 - Hypercalcemia Medications: New nicotine (polacrilex) 2 mg buccal Q2H 20 ea 0RF
== END 2024-04-07 12:10 | disposition home or self-care (01) ==
PROVIDERS: PCP Internal Medicine
DX: E11.65 Type 2 diabetes mellitus with hyperglycemia (principal); J43.9 Emphysema, unspecified; E66.9 Obesity, unspecified; Z68.30 Body mass index [BMI] 30.0-30.9, adult; Z72.0 Tobacco use; K21.9 Gastro-esophageal reflux disease without esophagitis; I25.10 Atherosclerotic heart disease of native coronary artery without angina pectoris; E78.00 Pure hypercholesterolemia, unspecified; I10 Essential (primary) hypertension; E87.5 Hyperkalemia; E83.52 Hypercalcemia

== ENCOUNTER → 2024-04-07 11:22 | Outpatient (BNVA) | payer OTHER, SELFPAY | PROVIDERS: PCP Internal Medicine | DX: E11.65 Type 2 diabetes mellitus with hyperglycemia (principal); K21.9 Gastro-esophageal reflux disease without esophagitis; E66.9 Obesity, unspecified; J43.9 Emphysema, unspecified; I25.10 Atherosclerotic heart disease of native coronary artery without angina pectoris; E78.00 Pure hypercholesterolemia, unspecified; I10 Essential (primary) hypertension; E87.5 Hyperkalemia; E83.52 Hypercalcemia; Z72.0 Tobacco use | CPT/HCPCS: 99212 ==

== ENCOUNTER 2024-06-15 10:36 | Outpatient (REF) | payer OTHER, SELFPAY ==
--- OUTSIDE RECORDS SUMMARY | 2024-06-15 12:42 | XMS_ITS | Patient Health Record ---
Author Organization [facility] Address [address] [facility] [place] [address] Care Team Providers Care Study Abroad Coordinator Name Role Phone Vicky Whitman Primary Care Provider Ephraim Mercado Unavailable [phone] Allergies Allergen (clinical drug ingredient) Drug/Non Drug Allergy documented on EMR Reaction Allergy Type Onset Date Status Latex Latex Unknown Allergy Active Mold Unknown Allergy Active Results Component Value Reference Range Notes HEMOGLOBIN A1C (GLYCOHEMOGLO BIN) Reviewed date:02/02/2024 01:38:55 PM Interpretation: Performing Lab: Notes/Report: HEMOGLOBIN A1C % (HH) 7.8 Reason For Referral No Information Medications Medication SIG (Take, Route, Frequency, Duration) Notes Start Date End Date Status Nitroglycerin Active Estradiol Active Salicylic Acid 3 % 1 application Externally Twice a day Active oxyBUTYnin Not-Takin g Metoprolol Succinate 25 MG 1 capsule Orally Once a day for 30 day(s) Active Proventil HFA Not-Ta wendy Myrbetriq 50 MG 1 tablet Orally Once a day Active Fluocinonide Active Zioptan 0.0015 % 1 drop into affected eye in the evening Ophthalmic Once a day Active Hydrocortisone Activ e Ammonium Lactate 12 % 1 application to affected area Externally to feet Twice a day for 30 days Active Timolol Maleate 0.5 % 1 drop into affect ed eye Ophthalmic Once a day Active Ezetimibe 10 MG 1 tablet Orally Once a day for 30 day(s) Active Vitamin D3 Active Atorvastatin Calcium 80 MG 1 tablet Orally Once a day for 30 day(s) Active Lisinopril Active Gabapentin Not-Takin g metFORMIN HCl Active Aspirin 81 Active Levothyroxine Sodium 100 MCG 1 tablet in the morning on an empty stomach Orally Once a day Active Extra Depth Orthopedic Shoes (1 Pair) with Customized Heat Molded Multidensity Innersoles (3 Pair) as directed Dx: NIDDM/Polyneuropathy (E11.42), Hammertoe Foot Deformity (M20.41,M20.42), Preulcerative Skin Lesion(s) (L85.1 03/24/2023 Active Lactulose 10 GM 1 packet Orally Once a day for 30 day(s) Active Breo Ellipta 200-25 MCG/INH 1 puff Inhalation Once a day Active Betamethasone Active Immunizations Vaccine Route Administration Date Status Comme nts COVID-19 Pfizer BioNTech Vaccine Unknown 10/25/2020 Administered 1st 10/04/2020 Influenza Unknown 02/19/2020 Administered Social History Tobacco Use: Social History Observation Description Date Details (start date - stop date) Current Smoker NA - NA Tobacco Use/Smoking Question Answer Notes Are you a: current smoker How many cigarettes a day do you smoke? 5 or les s Alcohol Screen Question Answer Notes Did you have a drink containing alcohol in the p ast year? No Points 0 Interpretation Negative Tobacco use other than smoking: Question Answer Notes Are you an other tobacco user? No Problems Problem Type SNOMED Code ICD Code Onset Dates Problem Status W/U Status Risk Notes Problem Acquired hammer toe of right foot (0361745389601359 ) Other hammer toe(s) (acquired), right foot (M20.41) Active confirmed Response to treatment, Improvemen t Problem Acquired hammer toe of left foot (8524063733932244 ) Other hammer toe(s) (acquired), left foot (M20.42) Active confirmed Response to treatment, Improvemen t Problem Polyneuropathy due to type 2 diabetes mellitus (773962337) Type 2 diabetes mellitus with diabetic polyneuropathy (E11.42) Active confirmed Vital Signs Height 5ft in 02/02/2024 Weight 167 lbs 02/02/2024 BMI 32.61 kg/m2 02/02/2024 Procedures Procedure Date Ordered Date Performed Result Body Sit e 38818-UNWDHNC NAIL, 6 OR MORE 11/23/2023 N/A 92987-LOPH SKIN LESIONS, OVER 4 11/23/2023 N/A 71790-GYQQQKB NAIL, 6 OR MORE 02/02/2024 N/A 26795-RQVE SKIN LESIONS, OVER 4 02/02/2024 N/A Encounters Encounter Location Date Provider Diagnosis [facility] [address] [facility] [address] [place] [address] 11/23/2023 Ephraimbarrett Fuentes Type 2 diabetes mellitus with diabetic polyneuropathy E11.42 ; Tinea unguium B35.1 ; Other hammer toe(s) (acquired), right foot M20.41 and Other hammer toe(s) (acquired), left foot M20.[address] [address] 02/02/2024 Ephraimbarrett BlackwoodAlfredo Type 2 diabetes mellitus with diabetic polyneuropathy E11.42 and Tinea unguium B35.[address] [address] 06/22/2023 Ephraim Fuentes [address] [address] 08/05/2023 Ephraim Fuentes [address] [address] 05/04/2024 Ephraim Fuentes Assessments Encounter Date Diagnosis (ICD Code) Assessment Notes Treatment Notes Treatment Clinical Notes Section Notes 11/23/2023 Type 2 diabetes mellitus with diabetic polyneuropathy (ICD-10 - E11.42) 11/23/2023 Tinea unguium (ICD-10 - B35.1) 02/02/2024 Type 2 diabetes mellitus with diabetic polyneuropathy (ICD-10 - E11.42) 02/02/2024 Tinea unguium (ICD-10 - B35.1) 11/23/2023 Other hammer toe(s) (acquired), right foot (ICD-10 - M20.41) Response to treatment,Impro vement 11/23/2023 Other hammer toe(s) (acquired), left foot (ICD-10 - M20.42) Response to treatment,Impro vement Plan Of Treatment Pending Test Test Name Order Date 48514-XBODMDF NAIL, 6 OR MORE 09/11/2020 00061-NUBFISC NAIL, 6 OR MORE 12/25/2020 80128-CSAVDMQ NAIL, 6 OR MORE 07/31/2021 16855-ZTFXDIL NAIL, 6 OR MORE 11/20/2021 42767-JDWIHUF NAIL, 6 OR MORE 01/31/2022 28351-IKPEPPT NAIL, 6 OR MORE 04/25/2022 66257-MRDNXJW NAIL, 6 OR MORE 08/29/2022 64551-MBXQWBG NAIL, 6 OR MORE 11/14/2022 34036-TWMZSBE NAIL, 6 OR MORE 03/24/2023 95137-DZZFAXO NAIL, 6 OR MORE 11/23/2023 85152-WCDDXKC NAIL, 6 OR MORE 02/02/2024 76665-VCHD SKIN LESIONS, OVER 4 02/02/20 24 78880-HMIW SKIN LESIONS, OVER 4 11/23/19 24 95811-EEOI SKIN LESIONS, OVER 4 03/24/20 23 96479-JWAE SKIN LESIONS, OVER 4 11/15/19 23 52349-WAVR SKIN LESIONS, OVER 4 08/30/19 23 01032-PIGM SKIN LESIONS, OVER 4 04/25/20 22 27740-ZXUX SKIN LESIONS, OVER 4 02/01/20 22 46584-EQEI SKIN LESIONS, OVER 4 11/21/19 22 74745-CLDF SKIN LESIONS, OVER 4 08/01/19 22 58570-TDIW SKIN LESIONS, 2 TO 4 12/26/19 21 Next Appt Details Provider Name:Ephraim Manuela Fuentes , 08/16/2024 01:30:00 PM, [address] [place], [address], Insurance Providers Payer Name Payer Address Payer Phone Subscriber Number Group Number Insured Name Patient Relationship to Insured Coverage Start Date Coverage End Date [facility] [employer] Claims [address] [place] [address] [id number] [id number] Pina Gaytan Self - patient is the insured Medical (General) History Medical History History ICD Code Angina Anxiety Arthritis Back,Hip,and Knee pain CAD (Cholesterol) Cataracts Depression Diabetic border line Glaucoma Heart disease High blood pressure Chicken pox Measles Mumps thyroid UTI's Diabetes type ll Surgical History Surgery Date(Month/Year) 1988,1993 Stent/implant R eye 06/2015 cataract surgery Hospitalization History Reason Date(Month/Year) [facility] -thrush mouth from breo ellipta-1 we ek given steroids 03/19/2022
--- OUTSIDE RECORDS SUMMARY | 2024-06-15 12:42 | XMS_ITS ---
Author Organization [facility] Address [address] [facility] [place] [address] Care Team Providers Care Monomer Recovery Supervisor Name Role Phone Vicky Whitman Primary Care Provider Ephraim Mercado Unavailable [phone] Allergies Allergen (clinical drug ingredient) Drug/Non Drug Allergy documented on EMR Reaction Allergy Type Onset Date Status Latex Latex Unknown Allergy Active Mold Unknown Allergy Active REASON FOR VISIT At Risk Footcare Medications Medication SIG (Take, Route, Frequency, Duration) Notes Start Date End Date Status oxyBUTYnin Not-Takin g Ammonium Lactate 12 % 1 application to affected area Externally to feet Twice a day for 30 days Active Gabapentin Not-Takin g Extra Depth Orthopedic Shoes (1 Pair) with Customized Heat Molded Multidensity Innersoles (3 Pair) as directed Dx: NIDDM/Polyneuropathy (E11.42), Hammertoe Foot Deformity (M20.41,M20.42), Preulcerative Skin Lesion(s) (L85.1 03/24/2023 Active Breo Ellipta 200-25 MCG/INH 1 puff Inhalation Once a day Active Nitroglycerin Active Salicylic Acid 3 % 1 application Externally Twice a day Active Zioptan 0.0015 % 1 drop into affected eye in the evening Ophthalmic Once a day Active Timolol Maleate 0.5 % 1 drop into affect ed eye Ophthalmic Once a day Active Vitamin D3 Active Metoprolol Succinate 25 MG 1 capsule Orally Once a day for 30 day(s) Active Lisinopril Active metFORMIN HCl Active Levothyroxine Sodium 100 MCG 1 tablet in the morning on an empty stomach Orally Once a day Active Lactulose 10 GM 1 packet Orally Once a day for 30 day(s) Active Estradiol Active Fluocinonide Active Hydrocortisone Activ e Ezetimibe 10 MG 1 tablet Orally Once a day for 30 day(s) Active Betamethasone Active Proventil HFA Not-Ta wendy Myrbetriq 50 MG 1 tablet Orally Once a day Active Atorvastatin Calcium 80 MG 1 tablet Orally Once a day for 30 day(s) Active Aspirin 81 Active Social History Tobacco Use: Social History Observation [...] Are you an other tobacco user? No Vital Signs Height 5ft in 02/02/2024 Weight 167 lbs 02/02/2024 BMI 32.61 kg/m2 02/02/2024 Procedures Procedure Date Ordered Date Performed Result Body Sit e 06282-[id number] NAIL, 6 OR MORE 02/02/2024 N/A [id number] SKIN LESIONS, OVER 4 02/02/2024 N/A Encounters Encounter Location Date Provider Diagnosis [facility] [address] [address] 02/02/2024 Ephraim Fuentes Type 2 diabetes mellitus with diabetic polyneuropathy E11.42 and Tinea unguium B35.1 Assessments Encounter Date Diagnosis (ICD Code) Assessment Notes Treatment Notes Treatment Clinical Notes Section Notes 02/02/2024 Type 2 diabetes mellitus with diabetic polyneuropathy (ICD-10 - E11.42) 02/02/2024 Tinea unguium (ICD-10 - B35.1) Plan Of Treatment Pending Test Test Name Order Date [id number] NAIL, 6 OR MORE 02/02/2024 [id number] SKIN LESIONS, OVER 4 02/02/20 24 Next Appt Details Follow Up: 2 Months, Reason: Provider Name:Ephraim Fuenets , 08/16/2024 01:30:00 PM, [address] [place] [address], [phone], Procedure Notes * Category Sub-Category Detail Notes Debride Nail 6-10 Nail debridement Due to the cl inical pathology outlined in the exam findings, performance of this nail treatment is medically necessary as its management by an unskilled/untrained nonprofessional would put this patients foot and overall health at risk. Therefore, debridement to affected nail(s), as described in exam ( TA, T1, T2, T3, T4, T5, T6, T7, T8, T9), was performed exclusively by the physician of record to reduce/remove overall nail length, girth, thickness, subungual debris, and necrotic tissue, by manual and/or electrical means through the use of a nail nipper and/or dremel-type feed grinder, to a more viable healthy nail plate or bed tissue 6-10 nails in total. Silver nitrate was used for any petechial bleeding as necessary. Definitive antifungal treatment options, both pharmaceutical and surgical, have been reviewed and discussed with the patient. The patient solely prefers the use of intermittent/as needed professional debridement services for their nail condition and understands the need for additional periodic treatments to maintain effectiveness in symptomatic relief - 57462 Keratoma Treatment Parring or Cutting o f Benign Hyperkeratotic Lesion(s) (-57) More than 4 Lesions - Due to the at risk nature of the patients medical condition as documented in the exam findings, performance of this keratoderma treatment is medically necessary as its management by an unskilled/untrained nonprofessional would put this patients foot and overall health at risk. Therefore, the benign hyperkeratotic lesions, ( 8) in total, locations as stated and described in the exam ( Plantar, IPJ, TA, Plantar, IPJ, T5, SUB MTH (s), 1, B/L , SUB MTH (s), 5, B/L ,Plantar, Heel(s), B/L), were pared, and/or cut utilizing a sterile 15 blade, tissue nippers, and/or power dremel instrumentation by the physician of record - 69337 Progress Notes * Pina MATHISDOB:10/1954 (69 yo F)Acc No.[id number]:02/02/2024 Progress Note Patient:?Alvaro MATHIS Provider:?Ephraim Fuentes DPM :1955???Age:68 Y???Sex:Female D ate:02/02/2024 Address:[facility] [address], [id number] Pcp:Vicky Whitman Subjective: * Chief Complaints: * ???At Risk Footcare * HPI: ???At Risk footcare:?Pt States Last PCP Visit:?Date?01/06/2024 * ROS:?General/Constitutional:?Nausea?denies.?Vomiting?denies.?Hunger Thirst?denies.?Loss appetite?denies.?Chills?denies.?Fatigue?denies.?Fever?denies.?Night Sweats?denies.?Unexplained weight loss?denies.?Unexplained weight gain?denies.?HEENTM:?Dentures?denies.?Dizziness?denies.?Glasses/contacts?denies.?Retinopathy?den ies.?Blurred/double vision?denies.?TMJ?denies.?Discharge/drainage?denies.?Implants?denies.?Sore throat?denies.?Dental implants?denies.?Hard of hearing ?denies.?Difficulty chewing/swallowing/speaking?admits.?Nose bleeds?denies.?Sore mouth?denies.?Respiratory:?On O xygen?denies.?Pneumonia/pleurisy?denies.?Bronchitis?denies.?Emphysema?denies.?Co ughing?denies.?Cough blood?denies.?Shortness of breath?denies.?Wheezing?admits.?Cardiovascular:?Pacemaker?denies.?MVP?denies.?WPW?denies.?CHF?denies.?Heart attack?denies.?Septal defect?denies.?Rapid beat?denies.?Chest pain ?denies.?Atrial Fib.?denies.?Murmur/Palpitations?denies.?Gastrointestinal:?Hemorrhoids?admits.?Stomach/Abdominal pain?denies.?Dark blood stool?denies.?Irritable bowel ?denies.?Constipation?denies.?Diarrhea?denies.?Hematology:?Swelling?denies.?Clots?denies.?Varicose Veins?denies.?Bruising?denies.?Bleeding problem?denies.?Genitourinary:?Blood urine?denies.?Frequent/Painfu/urination/bladder control?admits.?Kidney stones?denies.?Infection (UTI)?admits.?Nephropathy?denies.?sex trans dis (STD)?denies.?Prostate?denies.?Musculoskeletal:?Hammertoes?admits.?Bunions?denies.?Back Pain?admits.?Muscle Cramps/ Resting?denies.?Muscle cramps / walking?denies.?Generalized aches and pains?admits.?Weakness?denies.?Integ.:?Mcclain?denies.?Scars?denies.?Corns/calluses?admits.?Ingrown nails?admits.?Painful nails?denies.?Open Sores?denies.?Rashes?admits.?Neurologic:?Difficulty sleeping?denies.?Brain disorder?denies.?Numbness?denies.?Balance t rouble?denies.?Confusion?denies.?Fainting/blackouts?denies.?Tingling?denies.?Al mors?denies.? * Medical History:? * Surgical History:? 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 * Social History:?Tobacco Use:?Tobacco Use/Smoking?Are you a:?current smoker ?How many cigarettes a day do you smoke??5 or less ?Tobacco use other than smoking?Are you an other tobacco user??No ???Drugs/Alcohol:?Drugs?Have you used drugs other than those for medical reasons in the past 12 months??No ?Alcohol Screen?Did you have a drink containing alcohol in the past year??No ?Points?0 ?Interpretation?Negative ???Miscellaneous:?Caffeine: yes, frequency:, 1 cups per day coffee. ?Children: yes, 2. ?Exercise: no. ?Marital status: . ?Occupation: Disabled. * Medications:?TakingMyrbetriq 50 MG Tablet Extended Release 24 Hour 1 tablet Orally Once a day Aspirin 81 Atorvastatin Calcium 80 MG Tablet 1 tablet Orally Once a day Betamethasone Estradiol Ezetimibe 10 MG Tablet 1 tablet Orally Once a day Fluocinonide Hydrocortisone Levothyroxine Sodium 100 MCG Tablet 1 tablet in the morning on an empty stomach Orally Once a day Lactulose 10 GM Packet 1 packet Orally Once a day Lisinopril metFORMIN HCl Metoprolol Succinate 25 MG Capsule ER 24 Hour Sprinkle 1 capsule Orally Once a day Nitroglycerin Salicylic Acid 3 % Ointment 1 application Externally Twice a day Timolol Maleate 0.5 % Solution 1 drop into affected eye Ophthalmic Once a day Vitamin D3 Zioptan 0.0015 % Solution 1 drop into affected eye in the evening Ophthalmic Once a day Ammonium Lactate 12 % Cream 1 application to affected area Externally to feet Twice a day Extra Depth Orthopedic Shoes (1 Pair) with Customized Heat Molded Multidensity Innersoles (3 Pair) as directed Dx: NIDDM/Polyneuropathy (E11.42), Hammertoe Foot Deformity (M20.41,M20.42), Preulcerative Skin Lesion(s) (L85.1 Breo Ellipta 200-25 MCG/INH Aerosol Powder Breath Activated 1 puff Inhalation Once a day Taking Myrbetriq 50 MG Tablet Extended Release 24 Hour 1 tablet Orally Once a day Taking Aspirin 81 Taking Atorvastatin Calcium 80 MG Tablet 1 tablet Orally Once a day Taking Betamethasone Taking Estradiol Taking Ezetimibe 10 MG Tablet 1 tablet Orally Once a day Taking Fluocinonide Taking Hydrocortisone Taking Levothyroxine Sodium 100 MCG Tablet 1 tablet in the morning on an empty stomach Orally Once a day Taking Lactulose 10 GM Packet 1 packet Orally Once a day Taking Lisinopril Taking metFORMIN HCl Taking Metoprolol Succinate 25 MG Capsule ER 24 Hour Sprinkle 1 capsule Orally Once a day Taking Nitroglycerin Taking Salicylic Acid 3 % Ointment 1 application Externally Twice a day Taking Timolol Maleate 0.5 % Solution 1 drop into affected eye Ophthalmic Once a day Taking Vitamin D3 Taking Zioptan 0.0015 % Solution 1 drop into affected eye in the evening Ophthalmic Once a day Taking Ammonium Lactate 12 % Cream 1 application to affected area Externally to feet Twice a day Taking Extra Depth Orthopedic Shoes (1 Pair) with Customized Heat Molded Multidensity Innersoles (3 Pair) as directed Dx: NIDDM/Polyneuropathy (E11.42), Hammertoe Foot Deformity (M20.41,M20.42), Preulcerative Skin Lesion(s) (L85.1 Taking Breo Ellipta 200-25 MCG/INH Aerosol Powder Breath Activated 1 puff Inhalation Once a day Not-Taking/PRNGabapentin oxyBUTYnin Proventil HFA Medication List reviewed and reconciled with the patientNot- Taking/PRN Gabapentin Not-Taking/PRN oxyBUTYnin Not-Taking/PRN Proventil HFA Medication List reviewed and reconciled with the patient * Allergies:?LatexMoldyes[Jorge rgies Verified] Objective: * Vitals:?Ht: 5ft, Wt:167, BMI :32.61, Shoe size:7, BS:not taken. * ???Past Orders: ???Lab:HEMOGLOBIN A1C (GLYCO HEMOGLOBIN) (Order Date - 02/02/2024) (Collection Date & Time - 12/21/2023) ? Value Reference Range ?HEMOGLOBIN A1C % (HH) 7.8 * Examination: ???Ophthalmology Referral: ?DIABETES EYE EXAM?Neurological: ?SENSORY:? Neurological exam demonstrates, reduced light touch sensation, reduced sharp/dull pin prick discrimination , B/L, 5.07 monofilament test performed at plantar aspects of 5 varied sites per foot shows sensation, reduced , B/L, Pt relates, burning, paresthesia, pins and needles sensation, stinging, tingling, at rest, B/L.?Nails: ?NAILS are:?Elongated, overgrown, dystrophic, lytic, greater than 3mm thick, discolored and friable with crumbly malodorous subungual debris, TA, T1, T2, T3, T4, T5, T6, T7, T8, T9.?Dermatologic: ?SKIN FINDINGS:? Skin exam reveals Keratotic lesion(s) located at, Plantar, IPJ, TA, Plantar, IPJ, T5, SUB MTH (s), 1, B/L , SUB MTH (s), 5, B/L ,Plantar, Heel(s), B/L.?Vascular: ?DP PULSES (B):? 2/4, B/L.?PT PULSES (B):? 2/4, B/L.?CAPILLARY FILL TIME:? 3 secs. per digit, B/L.?TROPHIC CONDITION-TEXTURE/ELASTICITY/TURGOR/HAIR GROWTH (B):?normal, B/L.?TEMPERTURE GRADIENT (C):?normal, warm to cool, proximal to distal, B/L, B/L.?PIGMENTATION:?normal, B/L.?EDEMA (C):?absent, B/L.?Orthopedic: ?MUSCLE STRENGTH:?5/5 all groups in a symmetrical fashion , B/L.?FOOT MORPHOLOGY:? Pes Planus structure, No Charcot collapse/destruction noted at MTJ.?DIGITAL DEFORMITIES:?Digital contracture, PIPJ, 2-5 B/L, incompl-reducible with WB, or to push-up test, no over, nor underlapping , with evidence of shoe producing skin irritation.?FOOTWEAR:?fair condition, OT were inspected and noted to be worn , in fair condition but giving proper support at the present time.?General Examination: ?GENERAL APPEARANCE:?Reveals a pleasant, alert, well nourished, well- developed, well hydrated individual, who demonstrates proper attention to hygiene/body habitus, and is in no acute distress, Pt serves as own historian for office visit today.?ORIENTED:?person, place, and time.?FOOT EXAM:?Footwear Evaluation? Assessment: * Assessment: 1.?Type 2 diabetes mellitus with diabetic polyneuropathy - E11.42 (Primary)???2.?Tinea unguium - B35.1??? Plan: * Treatment: * Procedures:?Debride Nail 6-10:?Nail debridement?Due to the clinical pathology outlined in the exam findings, performance of this nail treatment is medically necessary as its management by an unskilled/untrained nonprofessional would put this patients foot and overall health at risk. Therefore, debridement to affected nail(s), as described in exam ( TA, T1, T2, T3, T4, T5, T6, T7, T8, T9), was performed exclusively by the physician of record to reduce/remove overall nail length, girth, thickness, subungual debris, and necrotic tissue, by manual and/or electrical means through the use of a nail nipper and/or dremel-type feed grinder, to a more viable healthy nail plate or bed tissue 6- 10 nails in total. Silver nitrate was used for any petechial bleeding as necessary. Definitive antifungal treatment options, both pharmaceutical and surgical, have been reviewed and discussed with the patient. The patient solely prefers the use of intermittent/as needed professional debridement services for their nail condition and understands the need for additional periodic treatments to maintain effectiveness in symptomatic relief - 12782.?Keratoma Treatment:?Parring or Cutting of Benign Hyperkeratotic Lesion(s)?(-57) More than 4 Lesions - Due to the at risk nature of the patients medical condition as documented in the exam findings, performance of this keratoderma treatment is medically necessary as its management by an unskilled/untrained nonprofessional would put this patients foot and overall health at risk. Therefore, the benign hyperkeratotic lesions, ( 8) in total, locations as stated and described in the exam (?Plantar,?IPJ,?TA,?Plantar,?IPJ,?T5,?SUB MTH (s),?1,?B/L?,?SUB MTH (s),?5,?B/L?,Plantar,?Heel(s),?B/L), were pared, and/or cut utilizing a sterile 15 blade, tissue nippers, and/or power dremel instrumentation by the physician of record - 51943.? * Procedure Codes:?18691 DEBRI DE NAIL, 6 OR MORE, Modifiers: XS 16920 TRIM SKIN LESIONS, OVER 4, Modifiers: XS * Preventive Medicine:? ??Counseling:?Tobacco use:?Patient counseled on the dangers of smoking and urged to quit:?02/02/2024 * Follow Up:?2 Months * Images: * Sign off status: Completed true * Provider:?Ephraim Fuentes DPM Date:?2023 Generated for Sirisha pressley/Jasmeet/Ankita on:?06/15/2024 12:42 PM EST History and Physical Notes * HPI (History of Present Illness) Category Sub-Category Detail Notes Category Not es At Risk footcare Pt States Last PCP Visit: Date: 4 Examination Category Sub-Category Detail Notes Category Not es Neurological SENSORY: Neurological exa m demonstrates, reduced light touch sensation, reduced sharp/dull pin prick discrimination , B/L, 5.07 monofilament test performed at plantar aspects of 5 varied sites per foot shows sensation, reduced , B/L, Pt relates, burning, paresthesia, pins and needles sensation, stinging, tingling, at rest, B/L Dermatologic SKIN FINDINGS: Skin exam reveal s Keratotic lesion(s) located at, Plantar, IPJ, TA, Plantar, IPJ, T5, SUB MTH (s), 1, B/L , SUB MTH (s), 5, B/L ,Plantar, Heel(s), B/L Orthopedic FOOT MORPHOLOGY: Pes Planus stru cture, No Charcot collapse/destruction noted at MTJ FOOTWEAR: fair condition, OT w ere inspected and noted to be worn , in fair condition but giving proper support at the present time DIGITAL DEFORMITIES: Digital contracture , PIPJ, 2-5 B/L, incompl-reducible with WB, or to push-up test, no over, nor underlapping , with evidence of shoe producing skin irritation MUSCLE STRENGTH: 5/5 all groups in a symmetrical fashion , B/L General Examination GENERAL APPEARANCE: Reveals a pleasant, alert, well nourished, well-developed, well hydrated individual, who demonstrates proper attention to hygiene/body habitus, and is in no acute distress, Pt serves as own historian for office visit today FOOT EXAM: Lower Extremity Neurological Exa m performed:: Yes Visual exam of foot performed:: Yes Date: 02/02/2024 ORIENTED: person, place, and t nichole Footwear Evaluation Footwear Evaluation performe d:: Yes Ophthalmology Referral DIABETES EYE EXAM Procedure Perform ed:: Yes ?Date of Exam Performed: 12/29/2023 Diabetic Retinopathy Screening:: Yes Findings of Diabetic Eye Exam:: no retin opathy Vascular DP PULSES (B): 2/4, B/L PT PULSES (B): 2/4, B/L CAPILLARY FILL TIME: 3 secs. per digit, B/L TEMPERTURE GRADIENT (C): normal, warm to cool, proximal to distal, B/L, B/L TROPHIC CONDITION-TEXTURE/ELASTICITY/TURGOR/HAIR GROWTH (B): normal, B/L EDEMA (C): absent, B/L PIGMENTATION: normal, B/L Nails NAILS are: Elongated, overg rown, dystrophic, lytic, greater than 3mm thick, discolored and friable with crumbly malodorous subungual debris, TA, T1, T2, T3, T4, T5, T6, T7, T8, T9
--- OUTSIDE RECORDS SUMMARY | 2024-06-15 12:42 | XMS_ITS ---
Author Organization [facility] Address [address] [place] [address] Care Team Providers Care Molder Trimmer Name Role Phone Vicky Whitman Primary Care Provider Ephraim Mercado Unavailable [phone] Encounters Encounter Location Date Provider Diagnosis [address] [address] 05/06/2024 Ephraim Fuentes Plan Of Treatment Next Appt Details Provider Name:Ephraim Fuentes , 08/16/2024 01:30:00 PM, [address] [place] [address], [phone], Progress Notes * Driss MATHISmercedesDOB:10/1954 (69 yo F)Acc No.[id number]:05/06/2024 Progress Note Patient:?Alvaro MATHIS Provider:?Ephraim Fuentes DPM :1955???Age:69 Y???Sex:Female D ate:05/06/2024 Address:[address] [place] [address] [address], [id number] Pcp:iVcky Whitman Subjective: * Chief Complaints: * ??? * Medical History:? Objective: * Vitals:? Assessment: Plan: * Treatment: * Images: * The named appointment provid er may or may not be the originator of this progress note, and it is not deemed complete until electronically signed by the appointment provider. Sign off status: Pending * Provider:?Ephraim Fuentes DPM Date:?2023 Generated for Sirisha pressley/Jasmeet/Ankita on:?06/15/2024 12:42 PM EST
--- OUTSIDE RECORDS SUMMARY | 2024-06-15 12:42 | XMS_ITS | Data Portability ---
Author Organization [facility] - [facility] Address [address] [place] [phone] Care Team Providers Care Agricultural Crop Farm Manager Name Role Phone [facility] Referring Provider Assessment Encounter Date Assessment Date Assessment LastModified by Organization Details LastModified Time 10/22/2022 10/22/2022 I have reviewed and agree with the assessment and plan as documented by the butcher's assistant. I provided real-time medical direction for this encounter and was immediately available to provide additional phone-based assistance as needed. 67F with vaginal dryness, presents with increased bladder pressure, painful urination, no fever. No previous history of UTI's. Pt using estradiol as per Urologist recommendation, however feels worsening symptoms. Pt well appearing, no acute distress, vitals stable. Urine cloudy, leukocytes positive, nitrites negative. Given constellation of symptoms, recommend initiating antibiotics. For urine culture. Rx given for macrobid, reviewed allergies. Red flags and return precautions discussed. Addendum (10/25/22): Culture is intermediate for macrobid. Will send bactrim. [email or web address] Not available 10/25/2022 15:03:49 Plan of Treatment Reminders Order Date Submit Date Provider Last Modified By Organization Details Last Modified Time Details Appointments None recorded. Lab culture, urine 2022 023 [place] [facility], [address] [place], [address], 3 11:11:00 urinalysis , dipstick 2022 023 [facility], [address] [place], [address], 15:49:26 Referral None recorded. Procedures None recorded. Surgeries None recorded. Imaging None recorded. Medication Orders Macrobid 100 mg capsule 2022 023 [id number], [address], [place], [phone], 3 10:59:20 Bactrim DS 800 mg-160 mg tablet 2022 023 [facility] #[id number], [address], [place], [phone], 15:04:26 Patient TargetsNo targets recorded. Patient InstructionsNo instructions recorded. Reason for Referral None Reported. Results Created Date Observation Date Name Description Value Unit Range Abnormal Flag Note LastModifiedBy Organization Detail LastModifiedTime 10/23/1910/22/2022 URINE CULTU RE specimen description URINE Not Available [facility] [address], [address], 10/25/2022 11:11:00 10/23/19 23 10/22/2022 URINE CULTU RE special requests NONE Not Available [facility] [address], [address], 10/25/2022 11:11:00 10/23/19 23 10/25/2022 URINE CULTU RE culture abnormal >100, 000 COL/M L KLEBS IELLA PNEUM ONIAE This isola te was ident ified using Maldi -TOF syste m These AST resul ts were perfo rmed on the Micro scan ID and AST syste m Not Available [facility] [address] [place], [address], 10/25/2022 11:11:00 10/23/19 23 10/25/2022 URINE CULTU RE report status FINAL 2022 Not Available [facility] [address], [address], 10/25/2022 11:11:00 10/23/19 23 10/25/2022 URINE CULTU RE organism ORGAN ISM >100, 000 COL/M L KLEBS IELLA PNEUM ONIAE This isola te was ident ified using Maldi -TOF syste m These AST resul ts were perfo rmed on the Micro scan ID and AST syste m Not Available [facility] [address] [place], [address], 10/25/2022 11:11:00 10/23/19 23 10/25/2022 URINE CULTU RE method METHOD MIN. INHIB. CONC. (MCG/M L) Not Available [facility] [address] [place], [address], 10/25/2022 11:11:00 10/23/19 23 10/25/2022 URINE CULTU RE ampicillin AMPICI LLIN RESIST ANT resistant Not Available [facility] [address] [place], [address], 10/25/2022 11:11:00 10/23/19 23 10/25/2022 URINE CULTU RE ampicillin/s ulbactam AMPICI LLIN/S ULBACT AM SUSCEP TIBLE susceptib le Not Available [facility] [address] [place], [address], 10/25/2022 11:11:00 10/23/19 23 10/25/2022 URINE CULTU RE amoxicillin/ clavulanic acid AMOXIC ILLIN/ CLAVUL AN SUSCEP TIBLE susceptib le Not Available [facility] [address] [place], [address], 10/25/2022 11:11:00 10/23/19 23 10/25/2022 URINE CULTU RE cefazolin CEFAZO ARCHIE SUSCEP TIBLE susceptib le Not Available [facility] [address] [place], [address], 10/25/2022 11:11:00 10/23/19 23 10/25/2022 URINE CULTU RE cefepime CEFEPI ME SUSCEP TIBLE susceptib le Not Available [facility] [address] [place], [address], 10/25/2022 11:11:00 10/23/19 23 10/25/2022 URINE CULTU RE ceftriaxone CEFTRI AXONE SUSCEP TIBLE susceptib le Not Available [facility] [address] [place], [address], 10/25/2022 11:11:00 10/23/19 23 10/25/2022 URINE CULTU RE ciprofloxaci n CIPROF LOXACI N SUSCEP TIBLE susceptib le Not Available [facility] [address] [place], [address], 10/25/2022 11:11:00 10/23/19 23 10/25/2022 URINE CULTU RE ertapenem ERTAPE NEM SUSCEP TIBLE susceptib le Not Available [facility] [address] [place], [address], 10/25/2022 11:11:00 10/23/19 23 10/25/2022 URINE CULTU RE gentamicin GENTAM ICIN SUSCEP TIBLE susceptib le Not Available [facility] [address] [place], [address], 10/25/2022 11:11:00 10/23/19 23 10/25/2022 URINE CULTU RE levofloxacin LEVOFL OXACIN SUSCEP TIBLE susceptib le Not Available [facility] [address] [place], [address], 10/25/2022 11:11:00 10/23/19 23 10/25/2022 URINE CULTU RE meropenem MEROPE NEM SUSCEP TIBLE susceptib le Not Available [facility] [address] [place], [address], 10/25/2022 11:11:00 10/23/19 23 10/25/2022 URINE CULTU RE nitrofuranto in NITROF URANTO IN INTERM EDIATE intermedi ate Not Available [facility] [address] [place], [address], 10/25/2022 11:11:00 10/23/19 23 10/25/2022 URINE CULTU RE piperacillin /tazobactam PIPERA CILLIN /TAZOB AC SUSCEP TIBLE susceptib le Not Available [facility] [address] [place], [address], 10/25/2022 11:11:00 10/23/19 23 10/25/2022 URINE CULTU RE trimeth/sulf amethox TRIMET H/SULF AMETHO X SUSCEP TIBLE susceptib le Not Available [facility] [address] [place], [address], 10/25/2022 11:11:00 10/23/19 23 10/25/2022 URINE CULTU RE tetracycline TETRAC YCLINE SUSCEP TIBLE susceptib le Not Available [facility] [address] [place], [address], 10/25/2022 11:11:00 Result Notes None recorded. Medical Equipment None Reported. Medications Name Sig Start Date Stop Date Status Note LastModified by Organization Details LastModified Time poise*pads active Not Available Not Av ailable Not Available fluconazole 100 mg tablet TAKE 1 TABLET BY MOUTH DAILY active Not Available Not Available Not Available metformin 500 mg tablet TAKE 1 TABLET BY MOUTH TWICE DAILY active Not Available Not Available No t Available atorvastatin 80 mg tablet TAKE 1 TABLET BY MOUTH DAILY active Not Available Not Available Not Available nystatin 100,000 unit/mL oral suspension SWISH AND SWALLOW 2 ML BY MOUTH THREE TIMES DAILY FOR 15 DAYS FOR THRUSH active Not Available Not Available No t Available venlafaxine ER 75 mg capsule,exte nded release 24 hr TAKE 1 CAPSULE BY MOUTH EVERY DAY active Not Available Not Available No t Available oxybutynin chloride ER 10 mg tablet,exten ded release 24 hr active Not Available Not Available Not Available FreeStyle Lancets 28 gauge USE DIRECTED TO CHECK BLOOD SUGAR THREE TIMES DAILY active Not Available Not Available Not Available clonazepam 1 mg tablet TAKE 1 TABLET BY MOUTH EVERY 8 HOURS active Not Available Not Available No t Available sulfamethoxa zole 800 mg-trimethop rim 160 mg tablet TAKE 1 TABLET BY MOUTH EVERY 12 HOURS FOR 3 DAYS active Not Available Not Available N ot Available levothyroxin e 100 mcg tablet TAKE 1 TABLET BY MOUTH DAILY active Not Available Not Available Not Available hydrocortiso ne 2.5 % topical cream with perineal applicator APPLY RECTALLY TO THE AFFECTED AREA 2 TO 4 TIMES A DAY NEEDED FOR HEMORRHOIDS active Not Available Not Available Not Available lisinopril 30 mg tablet TAKE 1 TABLET BY MOUTH DAILY active Not Available Not Available Not Available ammonium lactate 12 % topical cream APPLY 1 APPLICATION TO TO THE AFFECTED AREA ON THE FEET TWICE DAILY active Not Available Not Available No t Available gabapentin 100 mg capsule TAKE 1 CAPSULE BY MOUTH AT BEDTIME active Not Available Not Available No t Available metoprolol succinate ER 25 mg tablet,exten ded release 24 hr TAKE 1 TABLET BY MOUTH DAILY active Not Available Not Available Not Available estradiol 0.01% (0.1 mg/gram) vaginal cream active Not Available Not Available Not Available albuterol sulfate HFA 90 mcg/actuatio n aerosol inhaler INHALE 1 PUFF BY MOUTH EVERY 4 HOURS NEEDED active Not Available Not Available No t Available fluticasone propionate 50 mcg/actuatio n nasal spray,suspen cherelle SHAKE LIQUID AND USE 2 SPRAYS IN EACH NOSTRIL DAILY active Not Available Not Available No t Available oxycodone 5 mg tablet TAKE 1 TABLET BY MOUTH TWICE DAILY active Not Available Not Available No t Available neomycin 3.5 mg/g-polymyx in B 10,000 unit/g-dexam eth 0.1 % eye oint APPLY 1/4 INCH TO THE EYELID THREE TIMES DAILY active Not Available Not Available No t Available ezetimibe 10 mg tablet TAKE 1 TABLET BY MOUTH DAILY active Not Available Not Available Not Available timolol maleate (PF) 0.5 % eye drops in a dropperette INSTILL 1 DROP IN BOTH EYES TWICE DAILY active Not Available Not Available Not Available nitrofuranto in monohydrate/ macrocrystal s 100 mg capsule TAKE 1 CAPSULE BY MOUTH EVERY 12 HOURS FOR 5 DAYS active Not Available Not Available N ot Available cholecalcife rol (vitamin D3) 25 mcg (1,000 unit) tablet TAKE 1 TABLET BY MOUTH EVERY DAY active Not Available Not Available No t Available FreeStyle Lite Strips USE DIRECTED TO CHECK BLOOD SUGAR THREE TIMES DAILY active Not Available Not Available Not Available tafluprost (PF) 0.0015 % eye drops in a dropperette INSTILL 1 DROP IN BOTH EYES AT BEDTIME active Not Available Not Available N ot Available Breo Ellipta 200 mcg-25 mcg/dose powder for inhalation INHALE 1 PUFF BY MOUTH DAILY FOR COPD active Not Available Not Available No t Available Vitals Date Recorded Body temperature Oxygen saturation Oxygen saturation in Arterial blood by Pulse oximetry Heart rate Body weight Respiratory rate Systolic blood pressure Diastolic blood pressure Provider Name and Address Organization Details Last Updated DateTime 3 97.7 [degF] 98 % 98 % 70 /min 59275.0 88 g 18 /min 146 mm[Hg] 76 mm[Hg] Not Available [facility] - production 3 10:53:01 Social History None recorded. Functional Status None recorded. Mental Status None recorded. Family History Nothing Reported. Medical History No medical history recorded. Gynecological HistoryNo gynecological history recorded. Obstetrics History GPAL:G 0 P 0 0 0 0 Past Encounters Encounter ID Performer Location Encounter Start Date Encounter Closed Date Diagnosis/Indication Diagnosis SNOMED-CT Code Diagnosis ICD10 Code Diagnosis Note [id number] Josh Buckley MD [facility] - [facility] [address] [place] [phone] 10/22/2022 10:52:47 10/23/2022 10:59:30 Dysuria 97220722 R30.0 Acute cystitis 92257006 N30.00 Health Concerns Section Related Observation LastModified by Organization Detai ls LastModified Time None Recorded Concern Status LastModified by Organization Details LastModified Time None Recorded Advance Directives Directive None Recorded Payers Encounter Date Sequence Insurance Name Policy Number Policy Vasquez Covered Member ID Vasquez Member ID Guarantor Name 10/22/2022 1 [facility] - DOS ON OR AFTER 2022 - DUAL ELIGIBLE - HALFWAY OPTIONS AND ONE CARE (MEDICARE REPLACEMENT/ADV ANTAGE - HMO) Pina langley [id number] Pina ordoñez Notes Date Note Type Note Provider Name and Address Organization Details Recorded Time 10/22/2022 text/html [facility] Nursing Assessment: Reason For Request: UTI related symptoms Burning, using a vagina cream for dryness>was unsure leading up to call with [facility]>states she feels pain that region going on over a week.....pt believed she was just dealing with dryness. Chief Complaints: UTI/Pyelonephriti s PMH: COPD/Asthma, Hypertension, Diabetes Comments: Member calling in to place a referral, identified via /name. Member who thinks she may have a UTI, but has never had one. Member also states she uses a vaginal cream that was give by her urologist 2 years ago, Eftraciol, has an appt on October 29. Member feels like she has pelvic pressure, pain with urination, urgency and frequency, denies flank pain, urine is clear with no odor. Member is requesting a visit tomorrow 10/22. Josh Buckley MD [address] [place] [address],[address], [place], [address], [employer] 10/25/2022 15:04:26 OBGyn Episode No OBEpisode recorded.
--- OUTSIDE RECORDS SUMMARY | 2024-06-15 12:42 | XMS_ITS ---
Author Organization [facility] Address [address] [place] [address] Care Team Providers Care Site Worker Name Role Phone Vicky Whitman Primary Care Provider Ephraim Mercado [phone] REASON FOR VISIT cx appt 05/06/24 Encounters Encounter Location Date Provider Diagnosis [address] [address] 05/04/2024 Ephraim Fuentes Plan Of Treatment Next Appt Details Provider Name:Ephraim Fuentes , 08/16/2024 01:30:00 PM, [address] [place] [address], [phone], Progress Notes * Pina MATHISDOB:10/1954 (69 yo F)Acc No.[id number]:05/04/2024 Patient:?Alvaro MATHIS :1955???Age:69 Y???Sex:Female Address:[address] [place] [address] [address], [place], [address] * true * Date:? Generated for Printi ng/Fajackelineg/eTransmitting on:?06/15/2024 12:42 PM EST
--- OUTSIDE RECORDS SUMMARY | 2024-06-15 12:43 | XMS_ITS | Patient Health Record ---
Author Organization [facility] Address [address] [place] [address] Care Team Providers Care Tape Transferrer Name Role Phone Po Vicky BROCK Primary Care Provider Ras Rios [phone] ALLERGIES Allergen (clinical drug ingredient) Drug/Non Drug Allergy documented on EMR Reaction Allergy Type Onset Date Status food allergies (uncoded) Unknown Allergy Active Latex Latex gloves (uncoded) Unknown Allergy Active REASON FOR REFERRAL No Information MEDICATIONS Medication SIG (Take, Route, Frequency, Duration) Notes Start Date End Date Status Metoprolol Succinate 25 MG 1 capsule Ora lly Once a day for 30 day(s) Active Betamethasone Dipropionate 0.05 % 1 application Externally Once a day Active Atorvastatin Calcium 80 MG 1 tablet Oral ly Once a day for 30 day(s) Active oxyBUTYnin Chloride ER 10 MG 1 tablet Orally Once a day for 30 day(s) Active Breo Ellipta 200-25 MCG/INH 1 puff Inhal ation Once a day Active metFORMIN HCl ER 500 MG 1 tablet with ev ening meal Orally twice a day Active Proventil HFA 108 (90 Base) MCG/ACT 1 puff as needed Inhalation every 4 hrs Active Timolol Maleate 0.5 % 1 drop into affect ed eye Ophthalmic Once a day Active Ezetimibe 10 MG 1 tablet Orally Once a day for 30 day(s) Active Estradiol Active Vitamin D3 25 MCG (1000 UT) 1 capsule Or ally Once a day for 30 day(s) Active Lisinopril 30 MG 1 tablet Orally Once a day Active Aspir-Low 81 MG 1 tablet Orally Once a day for 30 day(s) Active Lactulose 10 GM 1 packet Orally Once a day for 30 day(s) Active Zioptan 0.0015 % as directed Ophthalm ic once a day Active Nitroglycerin 0.4 MG as directed Subling ual prn Active MiraLax (colon prep) 17 GM/SCOOP 1 238Gm bottle mixed with Gatorade or Crystal Light Orally begin at 5:00 p.m. the day before the procedure for 1 day 08/07/2021 Active Dulcolax (colon prep) 5 MG take at 3:00 p.m and 7:00p.m. Orally two tablets twice a day for one day for 1 day 08/07/2021 Active Levothyroxine Sodium 100 MCG 1 tablet in the morning on an empty stomach Orally Once a day for 30 day(s) Active IMMUNIZATIONS Vaccine Route Administration Date Status Comme nts Influenza Unknown 03/02/2019 Administered Influenza Unknown 03/06/2021 Administered SOCIAL HISTORY Tobacco Use: Social History Observation Description Date Details (start date - stop date) Current Smoker NA - NA Sex Assigned At : Social History Observation Description Sex Assigned At Unknown Tobacco Use/Smoking Question Answer Notes Patient is a current smoker How often do you smoke cigarettes? every day How many cigarettes a day do you smoke? 5 or les s How soon after you wake up d o you smoke your first cigarette? after 60 minutes Are you interested in quitting? Thinking about q uitting Alcohol Screen Question Answer Notes Did you have a drink contain ing alcohol in the past year? Yes How often did you have a dri nk containing alcohol in the past year? 2 to 3 times a week (3 points) How many drinks did you have on a typical day when you were drinking in the past year? 1 or 2 drinks (0 point) How often did you have 6 or more drinks on one occasion in the past year? Never (0 point) Points 3 Interpretation Positive PROBLEMS Problem Type ICD Code Onset Dates Problem Status W/U Status Risk SNOMED Code Notes Problem Encounter for screening for malignant neoplasm of colon (Z12.11) Active confirmed 839358285 Problem History of Clostridioides difficile infection (Z86.19) Active confirmed 300480126098076 Problem Irregular bowel habits (R19.8) Active confirmed 718624746 Problem Preprocedural examination (Z01.818) Active confirmed 882111852790903 Problem Diverticulosis of colon (K57.30) Active confirmed Diverticulosi s of colon (136246370) PLAN OF TREATMENT Future Test Test Name Order Date COLONOSCOPY 06/08/2019 COLONOSCOPY 08/07/2021 Insurance Providers Payer Name Payer Address Payer Phone Subscriber Number Group Number Insured Name Patient Relationship to Insured Coverage Start Date Coverage End Date [facility] [address] [place] [address] [id number] MARCELINA GEIGER Self - patient is the insured MEDICAL (GENERAL) HISTORY Medical History History ICD Code Denies CVA,renal disease COPD IN--s/p stent placement in 2015 Hypertension Glaucoma Neg colonoscopy in 08/2008 exceptor diver ticulosis and hemorrhoids C.dificile in Spring 2018 du e to antibiotics--treated with Vanco or Flagyl--she's not sure--resolved, but recurrent symptoms in 2018 Hypothyroidism HTN Hyperlipidemia Sleep apnea- mild - saw Dr. 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
[2024-06-15 13:26] LABS: Appearance Urine Cloudy; Color Urine Yellow; Glucose Urine UA >=1000 mg/dL (Negative); Leukocyte Esterase Urine Moderate (2+) (Negative); Nitrite Urine Negative (Negative); PH 5.5 (5.0-9.0); UMIC TRIGGER UACC YES; Urine Blood Small (1+) (Negative); Urine Ketones Negative (Negative); Urine Protein Negative (Neg-Trace)
[2024-06-15 13:36] LABS: Bacteria Urine None Seen (None Seen); Hyaline Casts Urine 0-2 /LPF (0-2); Squamous Epithelial Cell Urine 0-2 /HPF (0-2); UACC Culture Trigger YES; WBC Urine >50 /HPF (0-5)
[2024-06-15 13:56] LABS: Potassium 4.7 mmol/L (3.3-5.1)
[2024-06-15 14:17] LABS: Parathyroid Hormone Intact 47.9 pg/mL (8.7-77.1)
[2024-06-16 13:03] LABS: Calcium, Ionized 5.4 mg/dL (4.7-5.5)
== END 2024-06-15 10:37 | disposition home or self-care (01) ==
LOC: HO.HMGCLDS 10:36
PROVIDERS: PCP Internal Medicine; Visit Provider Internal Medicine
DX: E87.5 Hyperkalemia (principal); E83.52 Hypercalcemia
CPT/HCPCS: 36415; 81001; 82330; 83970; 84132; 87086

== ENCOUNTER 2024-06-29 12:37 | Outpatient (REF) | payer OTHER, SELFPAY ==
--- OUTSIDE RECORDS SUMMARY | 2024-06-29 14:02 | XMS_ITS | Patient Health Record ---
Author [facility] Address [address] [facility] [place] [address] Care Team Providers Care Rear Admiral Name Role Phone Vicky Whitman Primary Care Provider Ephraim Mercado Unavailable [phone] Allergies Allergen (clinical drug ingredient) Drug/Non Drug [...] Problem Acquired hammer toe of right foot (8532512058203156 ) Other hammer toe(s) (acquired), right foot (M20.41) Active confirmed Response to treatment, Improvemen t Problem Acquired hammer toe of left foot (3801705131748537 ) Other hammer toe(s) (acquired), left foot (M20.42) Active confirmed Response to treatment, Improvemen t Problem Polyneuropathy due to type 2 diabetes mellitus (954394396) Type 2 diabetes mellitus with diabetic polyneuropathy (E11.42) Active confirmed Vital Signs Height 5ft in 02/02/2024 Weight 167 lbs 02/02/2024 BMI 32.61 kg/m2 02/02/2024 Procedures Procedure Date Ordered Date Performed Result Body Sit e 08038-DVTYBIA NAIL, 6 OR MORE 11/23/2023 N/A 34731-EYCN SKIN LESIONS, OVER 4 11/23/2023 N/A 99094-LNLEQQC NAIL, 6 OR MORE 02/02/2024 N/A 95197-HRYB SKIN LESIONS, OVER 4 02/02/2024 N/A Encounters Encounter Location Date Provider Diagnosis [facility] [address] [facility] [address] [place] [address] 11/23/2023 Ephraimbarrett Jacobsier Type 2 diabetes mellitus with diabetic polyneuropathy E11.42 ; Tinea unguium B35.1 ; Other hammer toe(s) (acquired), right foot M20.41 and Other hammer toe(s) (acquired), left foot M20.[address] [address] 02/02/2024 Ephraim Fuentes Type 2 diabetes mellitus with diabetic polyneuropathy E11.42 and Tinea unguium B35.[address] [address] 08/05/2023 Ephraim Fuentes [address] [address] 05/04/2024 Ephraim Fuentes Assessments Encounter Date Diagnosis [...] Treatment Pending Test Test Name Order Date 51326-WLIWNSY NAIL, 6 OR MORE 09/11/2020 93994-EGROUXG NAIL, 6 OR MORE 12/25/2020 38756-TNGIDWP NAIL, 6 OR MORE 07/31/2021 61287-ZFAMRUU NAIL, 6 OR MORE 11/20/2021 44299-QAPEYXY NAIL, 6 OR MORE 01/31/2022 50778-IACVRRU NAIL, 6 OR MORE 04/25/2022 95669-SSJLISJ NAIL, 6 OR MORE 08/29/2022 43762-JSANYKA NAIL, 6 OR MORE 11/14/2022 58068-CLUFBQE NAIL, 6 OR MORE 03/24/2023 07828-GFMDDDQ NAIL, 6 OR MORE 11/23/2023 42879-MNAHYUP NAIL, 6 OR MORE 02/02/2024 99293-DVIS SKIN LESIONS, OVER 4 02/02/20 24 60507-YYNS SKIN LESIONS, OVER 4 11/23/19 24 22229-LHDW SKIN LESIONS, OVER 4 03/24/20 23 17878-QMFI SKIN LESIONS, OVER 4 11/15/19 23 94816-UTPG SKIN LESIONS, OVER 4 08/30/19 23 78732-CPHL SKIN LESIONS, OVER 4 04/25/20 22 03638-CWDI SKIN LESIONS, OVER 4 02/01/20 22 52409-DMIG SKIN LESIONS, OVER 4 11/21/19 22 01315-RRIU SKIN LESIONS, OVER 4 08/01/19 22 21431-KMPG SKIN LESIONS, 2 TO 4 12/26/19 21 Next Appt Details Provider Name:Ephraim Fuentes , 08/16/2024 01:30:00 PM, [address] [facility], [place], [address], Insurance Providers Payer Name Payer Address Payer Phone Subscriber Number Group Number Insured Name Patient Relationship to Insured Coverage Start Date Coverage End Date [facility] [employer] Claims [address] [facility] [place] [address] [id number] Pina Gaytan Self - patient is the insured Medical (General) History Medical History History ICD Code Angina Anxiety Arthritis Back,Hip,and Knee pain CAD (Cholesterol) Cataracts Depression Diabetic border line Glaucoma Heart disease High blood pressure Chicken pox Measles Mumps thyroid UTI's Diabetes type ll Surgical History Surgery Date(Month/Year) 1988,1993 Stent/implant R eye 06/2015 cataract surgery Hospitalization History Reason Date(Month/Year) [facility] -thrush mouth from breo ellipta-1 we ek given steroids 03/19/2022
--- OUTSIDE RECORDS SUMMARY | 2024-06-29 14:02 | XMS_ITS | Data Portability ---
Author Organization [facility] [place] [facility] Address [address] [place] [address] Care Team Providers Care Graduate Assistant Athletic Trainer Name Role Phone [facility] Referring Provider Assessment Encounter Date Assessment Date Assessment LastModified by Organization Details LastModified Time 10/22/2022 10/22/2022 I have reviewed and agree with the assessment and plan as documented by the public health teacher. I provided real-time medical direction for this [...] is intermediate for macrobid. Will send bactrim. [email or web address] Not available 10/25/2022 15:03:49 Plan of Treatment Reminders Order Date Submit Date Provider Last Modified By Organization Details Last Modified Time Details Appointments None recorded. Lab culture, urine 2022 023 [place] [facility], [address] [place], [address], 3 11:11:00 urinalysis , dipstick 2022 023 [facility], [address] [place], [address], 15:49:26 Referral None recorded. Procedures None recorded. Surgeries None recorded. Imaging None recorded. Medication Orders Macrobid 100 mg capsule 2022 023 [id number], [address], [place], [phone], 3 10:59:20 Bactrim DS 800 mg-160 mg tablet 2022 023 [facility] #[id number], [address], [place], [phone], 15:04:26 Patient TargetsNo targets recorded. Patient InstructionsNo instructions recorded. Reason for Referral None Reported. Results Created Date Observation Date Name Description Value Unit Range Abnormal Flag Note LastModifiedBy Organization Detail LastModifiedTime 10/23/1910/22/2022 URINE CULTU RE specimen description URINE Not Available [facility] [address], [address], 10/25/2022 11:11:00 10/23/19 23 10/22/2022 URINE CULTU RE special requests NONE Not Available [facility] [address], [address], 10/25/2022 11:11:00 10/23/19 23 10/25/2022 URINE CULTU RE culture abnormal >100, 000 COL/M L KLEBS IELLA PNEUM ONIAE This isola te was ident ified using Maldi -TOF syste m These AST resul ts were perfo rmed on the Micro scan ID and AST syste m Not Available [facility] [address] [place], [address], 10/25/2022 11:11:00 10/23/19 23 10/25/2022 URINE CULTU RE report status FINAL 2022 Not Available [facility] [address], [address], 10/25/2022 11:11:00 10/23/19 23 10/25/2022 URINE CULTU RE organism ORGAN ISM >100, 000 COL/M L KLEBS IELLA PNEUM ONIAE This isola te was ident ified using Maldi -TOF syste m These AST resul ts were perfo rmed on the Micro scan ID and AST syste m Not Available [facility] [address] [place], [address], 10/25/2022 11:11:00 10/23/19 23 10/25/2022 URINE CULTU RE method METHOD MIN. INHIB. CONC. (MCG/M L) Not Available [facility] [address] [place], [address], 10/25/2022 11:11:00 10/23/19 23 10/25/2022 URINE CULTU RE ampicillin AMPICI LLIN RESIST ANT resistant Not Available [facility] [address] [place], [address], 10/25/2022 11:11:00 10/23/19 23 10/25/2022 URINE CULTU RE ampicillin/s ulbactam AMPICI LLIN/S ULBACT AM SUSCEP TIBLE susceptib le Not Available [facility] [address] [place], [address], 10/25/2022 11:11:00 10/23/19 23 10/25/2022 URINE CULTU RE amoxicillin/ clavulanic acid AMOXIC ILLIN/ CLAVUL AN SUSCEP TIBLE susceptib le Not Available [facility] [address] [place], [address], 10/25/2022 11:11:00 10/23/19 23 10/25/2022 URINE CULTU RE cefazolin CEFAZO ARCHIE SUSCEP TIBLE susceptib le Not Available [facility] [address] [place], [address], 10/25/2022 11:11:00 10/23/19 23 10/25/2022 URINE CULTU RE cefepime CEFEPI ME SUSCEP TIBLE susceptib le Not Available [facility] [address] [place], [address], 10/25/2022 11:11:00 10/23/19 23 10/25/2022 URINE CULTU RE ceftriaxone CEFTRI AXONE SUSCEP TIBLE susceptib le Not Available [facility] [address] [place], [address], 10/25/2022 11:11:00 10/23/19 23 10/25/2022 URINE CULTU RE ciprofloxaci n CIPROF LOXACI N SUSCEP TIBLE susceptib le Not Available [facility] [address] [place], [address], 10/25/2022 11:11:00 10/23/19 23 10/25/2022 URINE CULTU RE ertapenem ERTAPE NEM SUSCEP TIBLE susceptib le Not Available [facility] [address] [place], [address], 10/25/2022 11:11:00 10/23/19 23 10/25/2022 URINE CULTU RE gentamicin GENTAM ICIN SUSCEP TIBLE susceptib le Not Available [facility] [address] [place], [address], 10/25/2022 11:11:00 10/23/19 23 10/25/2022 URINE CULTU RE levofloxacin LEVOFL OXACIN SUSCEP TIBLE susceptib le Not Available [facility] [address] [place], [address], 10/25/2022 11:11:00 10/23/19 23 10/25/2022 URINE CULTU RE meropenem MEROPE NEM SUSCEP TIBLE susceptib le Not Available [facility] [address] [place], [address], 10/25/2022 11:11:00 10/23/19 23 10/25/2022 URINE CULTU RE nitrofuranto in NITROF URANTO IN INTERM EDIATE intermedi ate Not Available [facility] [address] [place], [address], 10/25/2022 11:11:00 10/23/19 23 10/25/2022 URINE CULTU RE piperacillin /tazobactam PIPERA CILLIN /TAZOB AC SUSCEP TIBLE susceptib le Not Available [facility] [address] [place], [address], 10/25/2022 11:11:00 10/23/19 23 10/25/2022 URINE CULTU RE trimeth/sulf amethox TRIMET H/SULF AMETHO X SUSCEP TIBLE susceptib le Not Available [facility] [address] [place], [address], 10/25/2022 11:11:00 10/23/19 23 10/25/2022 URINE CULTU RE tetracycline TETRAC YCLINE SUSCEP TIBLE susceptib le Not Available [facility] [address] [place], [address], 10/25/2022 11:11:00 Result Notes None recorded. Medical [...] [degF] 98 % 98 % 70 /min 01629.0 88 g 18 /min 146 mm[Hg] 76 [...] SNOMED-CT Code Diagnosis ICD10 Code Diagnosis Note [id number] Josh Buckley MD Main - [facility] [address] [place] [phone] 10/22/2022 10:52:47 10/23/2022 10:59:30 Dysuria 90906213 R30.0 Acute cystitis 43108556 N30.00 Health Concerns Section Related Observation LastModified by Organization Detai ls LastModified Time None Recorded Concern Status LastModified by Organization Details LastModified Time None Recorded Advance Directives Directive None Recorded Payers Encounter Date Sequence Insurance Name Policy Number Policy Vasquez Covered Member ID Vasquez Member ID Guarantor Name 10/22/2022 1 [facility] - DOS ON OR AFTER 2022 - DUAL ELIGIBLE - [employer] OPTIONS AND ONE CARE (MEDICARE REPLACEMENT/ADV ANTAGE - HMO) Pina langley [id number] Pina ordoñez Notes Date Note Type Note [...] a visit tomorrow 10/22. Josh Buckley MD [address] [place] [address],[address], [place], [address], [employer] 10/25/2022 15:04:26 OBGyn Episode No OBEpisode recorded.
--- OUTSIDE RECORDS SUMMARY | 2024-06-29 14:03 | XMS_ITS ---
Author Organization [facility] Address [address] [place] [address] Care Team Providers Care Welder Fitter Arc Name Role Phone Vicky Whitman Primary Care Provider Ephraim Mercado [phone] REASON FOR VISIT cx appt 05/06/24 Encounters Encounter Location Date Provider Diagnosis [address] [address] 05/04/2024 Ephraim Fuentes Plan Of Treatment Next Appt Details Provider Name:Ephraim Fuentes , 08/16/2024 01:30:00 PM, [address] [place] [address], [phone], Progress Notes * Pina MATHISDOB:10/1954 (69 yo F)Acc No.[id number]:05/04/2024 Patient:?Alvaro MATHIS :1955???Age:69 Y???Sex:Female Address:[address] [place] [address] [address], [place], [address] * true * Date:? Generated for Printi ng/Fajackelineg/eTransmitting on:?06/29/2024 02:02 PM EST
--- OUTSIDE RECORDS SUMMARY | 2024-06-29 14:03 | XMS_ITS ---
Author Organization [facility] Address [address] [place] [address] Care Team Providers Care Pharmacy Student Name Role Phone Vicky Whitman Primary Care Provider Ephraim Mercado Unavailable [phone] Encounters Encounter Location Date Provider Diagnosis [address] [address] 05/06/2024 Ephraim Fuentes Plan Of Treatment Next Appt Details Provider Name:Ephraim Fuentes , 08/16/2024 01:30:00 PM, [address] [place] [address], [phone], Progress Notes * Pina MATHISDOB:10/1954 (69 yo F)Acc No.[id number]:05/06/2024 Progress Note Patient:?PABLOCLINTONAlvaro MEHTA Provider:?Ephraim Fuentes DPM :1955???Age:69 Y???Sex:Female D ate:05/06/2024 Address:[address] [place] [address] [address], [place] Pcp:Vicky Whitman Subjective: * Chief Complaints: * ??? * Medical History:? Objective: * Vitals:? Assessment: Plan: * Treatment: * Images: * The named appointment provid er may or may not be the originator of this progress note, and it is not deemed complete until electronically signed by the appointment provider. Sign off status: Pending * Provider:?Ephraim Fuentes DPM Date:?2023 Generated for Sirisha pressley/Jasmeet/Ankita on:?06/29/2024 02:02 PM EST
--- OUTSIDE RECORDS SUMMARY | 2024-06-29 14:03 | XMS_ITS ---
Author Organization [facility] Address [address] [facility] [place] [address] Care Team Providers Care Physical Therapist Center Manager Name Role Phone Vicky Whitman Primary Care Provider Ephraim Mercado Unavailable [phone] Allergies Allergen (clinical drug ingredient) Drug/Non Drug [...] Ordered Date Performed Result Body Sit e 77804-XGVETWI NAIL, 6 OR MORE 02/02/2024 N/A 24479-HAYJ SKIN LESIONS, OVER 4 02/02/2024 N/A Encounters Encounter Location Date Provider Diagnosis [facility] [address] [address] 02/02/2024 Ephraim Fuentes Type 2 diabetes mellitus with diabetic polyneuropathy E11.42 and Tinea unguium B35.1 Assessments Encounter Date Diagnosis (ICD Code) Assessment Notes Treatment Notes Treatment Clinical Notes Section Notes 02/02/2024 Type 2 diabetes mellitus with diabetic polyneuropathy (ICD-10 - E11.42) 02/02/2024 Tinea unguium (ICD-10 - B35.1) Plan Of Treatment Pending Test Test Name Order Date 77345-ZWRVFIM NAIL, 6 OR MORE 02/02/2024 61570-LOKQ SKIN LESIONS, OVER 4 02/02/20 24 Next Appt Details Follow Up: 2 Months, Reason: Provider Name:Ephraim Fuentes , 08/16/2024 01:30:00 PM, [address] [place] [address], [phone], Procedure Notes * Category Sub-Category Detail Notes [...] to maintain effectiveness in symptomatic relief - 70649 Keratoma Treatment Parring or Cutting o f [...] instrumentation by the physician of record - 08934 Progress Notes * Pina MATHISDOB:10/1954 (69 yo F)Acc No.[id number]:02/02/2024 Progress Note Patient:?Alvaro MATHIS Provider:?Ephraim Fuentes DPM :1955???Age:68 Y???Sex:Female D ate:02/02/2024 Address:[facility] [place] [address], [place] Pcp:Vicky Whitman Subjective: * Chief Complaints: * [...] to maintain effectiveness in symptomatic relief - 59292.?Keratoma Treatment:?Parring or Cutting of Benign Hyperkeratotic Lesion(s)?(-57) [...] instrumentation by the physician of record - 14391.? * Procedure Codes:?60449 DEBRI DE NAIL, 6 OR MORE, Modifiers: XS 82890 TRIM SKIN LESIONS, OVER 4, Modifiers: XS * Preventive Medicine:? ??Counseling:?Tobacco use:?Patient counseled on the dangers of smoking and urged to quit:?02/02/2024 * Follow Up:?2 Months * Images: * Sign off status: Completed true * Provider:?Ephraim Fuentes DPM Date:?2023 Generated for Sirisha pressley/Jasmeet/Ankita on:?06/29/2024 02:02 PM EST History and Physical Notes * [...]
--- OUTSIDE RECORDS SUMMARY | 2024-06-29 14:03 | XMS_ITS | Patient Health Record ---
Author Organization [facility] Address [address] [place] [address] Care Team Providers Care Metal Cans Supervisor Name Role Phone Po Vicky BROKC Primary Care Provider Ras Rios [phone] ALLERGIES Allergen (clinical drug ingredient) Drug/Non Drug [...] malignant neoplasm of colon (Z12.11) Active confirmed 919099392 Problem History of Clostridioides difficile infection (Z86.19) Active confirmed 474866237094106 Problem Irregular bowel habits (R19.8) Active confirmed 592090071 Problem Preprocedural examination (Z01.818) Active confirmed 622931942757118 Problem Diverticulosis of colon (K57.30) Active confirmed Diverticulosi s of colon (552466264) PLAN OF TREATMENT Future Test Test Name Order Date COLONOSCOPY 06/08/2019 COLONOSCOPY 08/07/2021 Insurance Providers Payer Name Payer Address Payer Phone Subscriber Number Group Number Insured Name Patient Relationship to Insured Coverage Start Date Coverage End Date [facility] [address] [place] [phone] [id number] MARCELINA GEIGER Self - patient is the insured MEDICAL (GENERAL) HISTORY Medical History History ICD Code Denies CVA,renal disease COPD OK--s/p stent placement in 2015 Hypertension Glaucoma Neg [...]
[2024-06-29 16:17] LABS: Appearance Urine Cloudy; Color Urine Yellow; Glucose Urine UA >=1000 mg/dL (Negative); Leukocyte Esterase Urine Moderate (2+) (Negative); Nitrite Urine Negative (Negative); PH 5.5 (5.0-9.0); UMIC TRIGGER UACC YES; Urine Blood Trace (Negative); Urine Ketones Negative (Negative); Urine Protein Negative (Neg-Trace)
[2024-06-29 16:23] LABS: Bacteria Urine None Seen (None Seen); Hyaline Casts Urine 0-2 /LPF (0-2); RBC Urine 0-2 /HPF (0-2); Squamous Epithelial Cell Urine 0-2 /HPF (0-2); UACC Culture Trigger YES; WBC Urine >50 /HPF (0-5)
== END 2024-06-29 12:38 | disposition home or self-care (01) ==
LOC: HO.HMGCLDS 12:37
PROVIDERS: PCP Internal Medicine; Visit Provider Internal Medicine
DX: R30.0 Dysuria (principal)
CPT/HCPCS: 81001; 87086

== ENCOUNTER 2024-07-25 14:22 | Outpatient (AMB) | payer OTHER, SELFPAY ==
--- NOTE | 2024-07-25 14:34 | MHC.OFFVIS ---
Intake Visit Reasons: 6m/PVR Intake Note: Patient presents today for follow up visit on: recurrent uti and frequency Urology Medications: Myrbetriq Allergies to Antibiotic: No Known Allergies Blood Thinner: Aspirin PVR: 20ml's Stone Spreader Operator Required: No Accompanied by: Self / Same As Patient Allergies LATEX Allergy (Intermediate, Verified 07/25/24 15:22) rash MOLD Allergy (Intermediate, Verified 07/25/24 15:22) rash NONORGANIC FOOD Allergy (Intermediate, Verified 07/25/24 15:22) diarrhea Yeast Allergy (Intermediate, Verified 07/25/24 15:22) Diarrhea Medication List - Last Reconciled 07/25/24 by JUSTO Dorsey-BC albuterol sulfate 90 mcg/actuation (Proventil HFA) 2 puffs inhalation Q6H PRN ammonium lactate 12% 1 appl topical BID aspirin (Adult Low Dose Aspirin) 81 mg PO DAILY atorvastatin 80 mg PO DAILY [BEDSIDE COMMODE As directed] betamethasone dipropionate 0.05% apply to hands twice daily Breo Ellipta 200-25 mcg/dose (fluticasone furoate-vilanterol) 1 ea PO DAILY NS cholecalciferol (vitamin D3) 25 mcg PO DAILY ciprofloxacin HCl (Cipro) 250 mg PO BID clonazepam 1 mg PO Q8H [commode As directed] [diabetic shoes As directed] empagliflozin (Jardiance) 10 mg PO DAILY estradiol 0.01%(0.1mg/gram) vaginally 3 times a week; pea sized amount to urethra 3 times a week 30 days ezetimibe (Zetia) 10 mg PO BEDTIME flash glucose scanning reader (Hypereight Dany 2 Carmine) As directed flash glucose sensor (MyTraining.proStyle Dany 2 Sensor kit) As directed fluconazole 150 mg PO Q3D 2 doses fluticasone propionate 50 mcg/actuation 2 sprays intranasal DAILY gabapentin 100 mg PO BEDTIME [GRABBER TOOL As directed] hydrocortisone 2.5% (Proctosol HC) 1 appl MS BID-QID PRN incontinence pad, liner, disp 8 pads per day [id number] Contour Plus BC pad , Inco, Max, swo incontinence pad, liner, disp As directed [incontinent wipes As directed] lactulose 15 mL PO DAILY 90 days levothyroxine 100 mcg PO DAILY [LIFT RECLINER As directed] lisinopril 30 mg PO DAILY 90 days metformin 500 mg PO BID 30 days metoprolol succinate ER 25 mg PO DAILY mirabegron ER (Myrbetriq) 50 mg PO DAILY miscellaneous medical supply As directed nicotine 1 patch transdermal Q24H nicotine 1 patch transdermal DAILY nicotine (polacrilex) 2 mg buccal Q2H nitroglycerin 0.4 mg sublingual Q5M PRN 30 days nystatin (Nystop) 1 appl topical BID nystatin 2 mL PO TID 15 days oxycodone 5 mg PO BID 30 days [Pad bladder ultra As directed 8 times day ] phenazopyridine (Pyridium) 200 mg PO TID PRN sulfamethoxazole-trimethoprim 800-160 mg (Bactrim DS) 1 tab PO BID 3 days tafluprost (PF) 0.0015% (Zioptan (PF)) 1 drp ophthalmic (eye) QPM timolol maleate (PF) 0.5% 1 drp ophthalmic (eye) BID venlafaxine ER 75 mg PO BEDTIME [WIPES As directed] HPI Comments Details: Pina is a pleasant 69-year-old female patient of Dr. Whitman. She has a past medical history of type 2 diabetes, anxiety, depression, GERD, COPD, hypercholesteremia, hypothyroid, hypertension, and bilateral hip joint arthritis. She she presents to the office today for follow-up of her recurrent urinary tract infections and lower urinary tract symptoms. In discussion with the patient today she reports having called her PCP a few weeks ago as she had been experiencing UTI like symptoms and was prescribed antibiotics however status post completion of antibiotic therapy continued with UTI like symptoms at which time she called our office and urine was sent for microgen. Micro gin results reviewed with the patient today. Lactobacillus gasseri, Pseudomonas fluorescens, Streptococcus oralis,mycolicibacterium aurum, bacteroides uniformis, bacteroides ovatus, and lactobacillus crispatus, Codi glabrate. She has since finished antibiotic therapy as prescribed. She reports feeling Loretta pads she received from [facility] cause her vaginal itching as she recently purchased her own Loretta pads and feels she has no bothersome vaginal issues with this product. We discussed potential for utilizing hypoallergenic pads. She discusses her recent right breast biopsy and is awaiting 2nd opinion. She also discusses her upcoming left eye surgery for her glaucoma. She continues with episodes of urinary frequency, urinary urgency, and mixed urinary incontinence. She does endorse noncompliance with Estrace cream. We discussed importance in doing so in relation to recurrent urinary tract infections as well as lower urinary tract symptoms patient continues to experience. Previous workup has included a retroperitoneal ultrasound 12/07 noting bilateral kidneys with no hydronephrosis or renal calculi limited visualization. Pre void bladder volume is approximately 160 mL. Postvoid bladder volume is approximately 60 mL. She has trialed oxybutynin, tolterodine, and Toviaz in the past with no improvement in lower urinary tract symptoms. In office urinalysis results reviewed with the patient today. PVR 20 mL. She currently denies any UTI like symptoms. We discussed potential for recurrent yeast infections in relation to diabetic medication. She reports she will follow-up with her PCP regarding this issue. Discussed further assessment evaluation with urodynamics if symptoms arise given patient's history of multiple failed overactive bladder medications. She discusses finding it difficult to keep her scheduled appointments due to her transportation issues however would like to attempt to have procedure. She otherwise offers no other issues or concerns at this time. [facility] Medical History Anxiety and depression Thrush, oral Allergic rhinitis Franky's disease Goiter diffuse Cataract Glaucoma Tobacco abuse Type 2 diabetes mellitus with hyperglycemia GERD (gastroesophageal reflux disease) Obesity (BMI 30-39.9) COPD (chronic obstructive pulmonary disease) Coronary artery disease Carpal tunnel syndrome Hypercholesterolemia Hypothyroid Hypertension Surgical History Hx of section History of tubal ligation Family History Father Myocardial infarct Maternal Grandmother Breast cancer Mother Pancreatic cancer Sister Bipolar 1 disorder Other Mental problem Social History Household Members: Family Housing: House Do you presently have visiting nurse or other home services: No Alcohol intake: current Alcohol intake frequency: holidays/special occasions only Patient Tobacco Use Status: Current everyday Tobacco user Tobacco use type: Cigarette Cigarettes Per Day: 4 Years Smoked: 4 cigarettes a day e-Cigarette/Vaping Use: Currently Using Advance Directives Date on File: 03/21/22 service: No Current occupational status: disabled Cognitive needs: No Hearing needs: No Vision needs: Yes Review of Systems Const Reports as per [facility] Eyes Reports no additional complaints ENT Reports no additional complaints Card Reports as per [facility] Resp Reports as per [facility] GI Reports as per [facility] Reports as per [facility] Musc Reports as per [facility] Neuro Reports no additional complaints Psych Reports as per [facility] Endo Reports as per [facility] Physical Exam Const General: cooperative, healthy appearing, comfortable, no acute distress, well developed, alert and awake Nutritional Appearance: overweight Orientation/consciousness: patient oriented x3 Limitations: ambulation with cane HEENT Head: Yes normal to inspection, Yes normocephalic and Yes atraumatic Ears: hearing grossly normal bilaterally Eyes General: appearance normal, both eyes and all related structures Neck Neck: Yes normal visual inspection and Yes trachea midline Chest Chest palpation & inspection: normal inspection of the chest Resp Effort & Inspection: normal respiratory effort and able to speak in complete sentences Cardio Rate: regular rate GI Inspection: Yes normal to inspection General: Yes no CVA tenderness Back/Spine/Pelvis Back: no CVA tenderness Skin General skin exam: no rashes or lesions noted Neuro General: patient oriented x3 Extrem General: Yes normal to inspection Psych Appearance: grossly normal and well kempt Mental Status: mental status grossly normal Speech and movement: Normal speech and movement present and Clear speech present Affect: normal affect Attitude: cooperative Thought process: Normal thought process present Thought content: Normal thought content present Insight: Fair insight present (Psych) Judgement: Fair judgement present (Psych) Office Procedures Post Void Residual Post Residual Void Post Void Residual (PVR): 20 [id number] Void Residual by ultrasound Results AMB Urinalysis, Automated UA Leukoctes 0 Ivette/uL Last Edit by Young Sullivan on 07/25/24 15:02 UA Nitrite Last Edit by Young Sullivan on 07/25/24 15:02 UA Urobilinogen 0.2 mg/dL Last Edit by Young Sullivan on 07/25/24 15:02 UA Protein 15 mg/dL Last Edit by Young Sullivan on 07/25/24 15:02 UA pH 6.0 Last Edit by Young Sullivan on 07/25/24 15:02 UA Blood 10 Jordan/uL Last Edit by Young Sullivan on 07/25/24 15:02 UA Specific [place] 1.015 Last Edit by Young Sullivan on 07/25/24 15:02 UA Ketone Last Edit by Young Sullivan on 07/25/24 15:02 UA Bilirubin 0 mg/dL Last Edit by Young Graycassidy on 07/25/24 15:02 UA Glucose 250 mg/dL Last Edit by Young Graycassidy on 07/25/24 15:02 Results Reviewed Results Reviewed: Laboratory Last Values Urine pH (Auto) 6.0 07/25/24 15:00 Specific [place] (Auto) 1.015 07/25/24 15:00 Urine Protein (Auto) 15 mg/dL 07/25/24 15:00 Glucose (UA)(Auto) 250 mg/dL 07/25/24 15:00 Urine Blood (Auto) 10 Jordan/uL 07/25/24 15:00 Urine Bilirubin (Auto) 0 mg/dL 07/25/24 15:00 Urine Urobilinogen (Auto) 0.2 mg/dL 07/25/24 15:00 Leukocyte Esterase (Auto) 0 Ivette/uL 07/25/24 15:00 Assessment & Plan Assessment & Plan (1) Recurrent UTI: Code(s): N39.0 - Urinary tract infection, site not specified Category: Medical (2) Urinary frequency: Code(s): R35.0 - Frequency of micturition Category: Medical (3) Urinary urgency: Code(s): R39.15 - Urgency of urination Category: Medical (4) Urinary incontinence: Code(s): R32 - Unspecified urinary incontinence Category: Medical Plan In office urinalysis results reviewed with the patient today; as noted above; will send for urine cytology PVR 20 mL. Continue Myrbetriq as discussed and prescribed. Continue Estrace cream as discussed and prescribed. Discussed UTI prevention with D mannose supplement, vitamin-C, increasing fluid intake, behavioral therapy with timed voiding, perineal hygiene and postcoital voiding, and management of constipation with stool softeners and increased fiber intake. Patient was a history of multiple failed overactive bladder medications. She currently denies any UTI like symptoms. Will schedule for in office urodynamics for further assessment evaluation. Follow-up per doctor's orders; or sooner with any issues, concerns, and or questions. Orders: Orders AMB Urinalysis Automated Today Z13.9 - Encounter for screening, unspecified AMB Post Void Residual by ultrasound Today R35.0 - Frequency of micturition Medications: Refilled estradiol 0.01%(0.1mg/gram) vaginally 3 times a week; pea sized amount to urethra 3 times a week 30 days 42.5 grams 3RF Discontinued phenazopyridine (Pyridium) Discontinued Reason: Patient Completed Course 200 mg PO TID PRN 20 tabs 0RF pain N39.0 - Urinary tract infection, site not specified ciprofloxacin HCl (Cipro) Discontinued Reason: Patient Completed Course 250 mg PO BID 10 tabs 0RF sulfamethoxazole-trimethoprim 800-160 mg (Bactrim DS) Discontinued Reason: Patient Completed Course 1 tab PO BID 3 days 6 tabs 0RF Coding Level of Care Code Est Pt Level 3 (79213) Complex EM visit Add On G2211 Diagnoses Recurrent UTI N39.0 Urinary frequency R35.0 Urinary urgency R39.15 Urinary incontinence R32 CPT Codes Post Residual Void - PVR CPT Code: [id number]-[id number] Void Residual by ultrasound ([id number])
--- OUTSIDE RECORDS SUMMARY | 2024-07-25 16:24 | XMS_ITS | Data Portability ---
Author Organization [facility] - [facility] Address [address] [place] [address] Care Team Providers Care Corporate Intern Name Role Phone [facility] Referring Provider Assessment Encounter Date Assessment Date Assessment LastModified by Organization Details LastModified Time 10/22/2022 10/22/2022 I have reviewed and agree with the assessment and plan as documented by the lead retail sales associate. I provided real-time medical direction for this [...] is intermediate for macrobid. Will send bactrim. [email or web address] Not available 10/25/2022 15:03:49 Plan of Treatment Reminders Order Date Submit Date Provider Last Modified By Organization Details Last Modified Time Details Appointments None recorded. Lab culture, urine 2022 023 [employer] [facility] (Centralized Electronic Ordering - All Locations), Patient Can Go To The Location Of Their Choice, [id number] 11:11:00 urinalysis , dipstick 2022 023 [facility], [address] [place] [address], [place], [phone], 15:49:26 Referral None recorded. Procedures None recorded. Surgeries None recorded. Imaging None recorded. Medication Orders Macrobid 100 mg capsule 2022 023 [id number], [address], [place], [phone], 10:59:20 Bactrim DS 800 mg-160 mg tablet 2022 023 [facility] #[id number], [address], [place], [phone], 15:04:26 Patient TargetsNo targets recorded. Patient InstructionsNo instructions recorded. Reason for Referral None Reported. Results Created Date Observation Date Name Description Value Unit Range Abnormal Flag Note LastModifiedBy Organization Detail LastModifiedTime 10/23/1910/22/2022 URINE CULTU RE specimen description URINE Not Available [facility] (Centralized Electronic Ordering - All Locations) Patient Can Go To The Location Of Their Choice, [id number] 10/25/2022 11:11:00 10/23/1910/22/2022 URINE CULTU RE special requests NONE Not Available [facility] (Centralized Electronic Ordering - All Locations) Patient Can Go To The Location Of Their Choice, 10/25/2022 11:11:00 10/23/1910/25/2022 URINE CULTU RE culture abnormal >100, 000 COL/M L KLEBS IELLA PNEUM ONIAE This isola te was ident ified using Maldi -TOF syste m These AST resul ts were perfo rmed on the Micro scan ID and AST syste m Not Available [facility] (Centralized Electronic Ordering - All Locations) Patient Can Go To The Location Of Their Choice, [id number] 10/25/2022 11:11:00 10/23/1910/25/2022 URINE CULTU RE report status FINAL 2022 Not Available [facility] (Centralized Electronic Ordering - All Locations) Patient Can Go To The Location Of Their Choice, 10/25/2022 11:11:00 10/23/1910/25/2022 URINE CULTU RE organism ORGAN ISM >100, 000 COL/M L KLEBS IELLA PNEUM ONIAE This isola te was ident ified using Maldi -TOF syste m These AST resul ts were perfo rmed on the Micro scan ID and AST syste m Not Available [facility] (Centralized Electronic Ordering - All Locations) Patient Can Go To The Location Of Their Choice, 10/25/2022 11:11:00 10/23/1910/25/2022 URINE CULTU RE method METHOD MIN. INHIB. CONC. (MCG/M L) Not Available [facility] (Centralized Electronic Ordering - All Locations) Patient Can Go To The Location Of Their Choice, 10/25/2022 11:11:10/23/1910/25/2022 URINE CULTU RE ampicillin AMPICI LLIN RESIST ANT resistant Not Available [facility] (Centralized Electronic Ordering - All Locations) Patient Can Go To The Location Of Their Choice, 10/25/2022 11:11:00 10/23/1910/25/2022 URINE CULTU RE ampicillin/s ulbactam AMPICI LLIN/S ULBACT AM SUSCEP TIBLE susceptib le Not Available [facility] (Centralized Electronic Ordering - All Locations) Patient Can Go To The Location Of Their Choice, 10/25/2022 11:11:00 10/23/19 23 10/25/2022 URINE CULTU RE amoxicillin/ clavulanic acid AMOXIC ILLIN/ CLAVUL AN SUSCEP TIBLE susceptib le Not Available [facility] (Centralized Electronic Ordering - All Locations) Patient Can Go To The Location Of Their Choice, 10/25/2022 11:11:00 10/23/1910/25/2022 URINE CULTU RE cefazolin CEFAZO ARCHIE SUSCEP TIBLE susceptib le Not Available [facility] (Centralized Electronic Ordering - All Locations) Patient Can Go To The Location Of Their Choice, 10/25/2022 11:11:00 10/23/19 23 10/25/2022 URINE CULTU RE cefepime CEFEPI ME SUSCEP TIBLE susceptib le Not Available [facility] (Centralized Electronic Ordering - All Locations) Patient Can Go To The Location Of Their Choice, 10/25/2022 11:11:00 10/23/19 23 10/25/2022 URINE CULTU RE ceftriaxone CEFTRI AXONE SUSCEP TIBLE susceptib le Not Available [facility] (Centralized Electronic Ordering - All Locations) Patient Can Go To The Location Of Their Choice, 10/25/2022 11:11:00 10/23/19 23 10/25/2022 URINE CULTU RE ciprofloxaci n CIPROF LOXACI N SUSCEP TIBLE susceptib le Not Available [facility] (Centralized Electronic Ordering - All Locations) Patient Can Go To The Location Of Their Choice, 10/25/2022 11:11:00 10/23/19 23 10/25/2022 URINE CULTU RE ertapenem ERTAPE NEM SUSCEP TIBLE susceptib le Not Available [facility] (Centralized Electronic Ordering - All Locations) Patient Can Go To The Location Of Their Choice, 10/25/2022 11:11:00 10/23/19 23 10/25/2022 URINE CULTU RE gentamicin GENTAM ICIN SUSCEP TIBLE susceptib le Not Available [facility] (Centralized Electronic Ordering - All Locations) Patient Can Go To The Location Of Their Choice, 10/25/2022 11:11:00 10/23/19 23 10/25/2022 URINE CULTU RE levofloxacin LEVOFL OXACIN SUSCEP TIBLE susceptib le Not Available [facility] (Centralized Electronic Ordering - All Locations) Patient Can Go To The Location Of Their Choice, 10/25/2022 11:11:00 10/23/19 23 10/25/2022 URINE CULTU RE meropenem MEROPE NEM SUSCEP TIBLE susceptib le Not Available [facility] (Centralized Electronic Ordering - All Locations) Patient Can Go To The Location Of Their Choice, 10/25/2022 11:11:00 10/23/19 23 10/25/2022 URINE CULTU RE nitrofuranto in NITROF URANTO IN INTERM EDIATE intermedi ate Not Available [facility] (Centralized Electronic Ordering - All Locations) Patient Can Go To The Location Of Their Choice, 10/25/2022 11:11:00 10/23/19 23 10/25/2022 URINE CULTU RE piperacillin /tazobactam PIPERA CILLIN /TAZOB AC SUSCEP TIBLE susceptib le Not Available [facility] (Centralized Electronic Ordering - All Locations) Patient Can Go To The Location Of Their Choice, 10/25/2022 11:11:00 10/23/19 23 10/25/2022 URINE CULTU RE trimeth/sulf amethox TRIMET H/SULF AMETHO X SUSCEP TIBLE susceptib le Not Available [facility] (Centralized Electronic Ordering - All Locations) Patient Can Go To The Location Of Their Choice, [id number] 10/25/2022 11:11:00 10/23/1910/25/2022 URINE CULTU RE tetracycline TETRAC YCLINE SUSCEP TIBLE susceptib le Not Available [facility] (Centralized Electronic Ordering - All Locations) Patient Can Go To The Location Of Their Choice, [id number] 10/25/2022 11:11:00 Result Notes None recorded. Medical [...] [degF] 98 % 98 % 70 /min 27096.0 88 g 18 /min 146 mm[Hg] 76 mm[Hg] Not Available [facility] - production 10:53:01 Social History None recorded. Functional Status None recorded. Mental Status None recorded. Family History Nothing Reported. Medical History No medical history recorded. Gynecological HistoryNo gynecological history recorded. Obstetrics History GPAL:G 0 P 0 0 0 0 Past Encounters Encounter ID Performer Location Encounter Start Date Encounter Closed Date Diagnosis/Indication Diagnosis SNOMED-CT Code Diagnosis ICD10 Code Diagnosis Note [id number] Josh Buckley MD [facility] - [facility] [address] [place] [phone] 10/22/2022 10:52:47 10/23/2022 10:59:30 Dysuria 68651763 R30.0 Acute cystitis 14080079 N30.00 Health Concerns Section Related Observation LastModified by Organization Detai ls LastModified Time None Recorded Concern Status LastModified by Organization Details LastModified Time None Recorded Advance Directives Directive None Recorded Payers Encounter Date Sequence Insurance Name Policy Number Policy Vasquez Covered Member ID Vasquez Member ID Guarantor Name 10/22/2022 1 [facility] - DOS ON OR AFTER 2022 - DUAL ELIGIBLE - HALFWAY OPTIONS AND ONE CARE (MEDICARE REPLACEMENT/ADV ANTAGE - HMO) Pina langley [id number] Pina ordoñez Notes Date Note Type Note [...] a visit tomorrow 10/22. Josh Buckley MD [address] [facility],[address], [place], [address], [employer] RUBALCAVA 10/25/2022 15:04:26 OBGyn Episode No OBEpisode recorded.
--- OUTSIDE RECORDS SUMMARY | 2024-07-25 16:24 | XMS_ITS ---
Author Organization [facility] Address [address] [place] [address] Care Team Providers Care Referral Agent Name Role Phone Vicky Whitman Primary Care Provider Ephraim Mercado Unavailable [phone] Encounters Encounter Location Date Provider Diagnosis [address] [address] 05/06/2024 Ephraim Fuentes Plan Of Treatment Next Appt Details Provider Name:Ephraim Fuentes , 08/16/2024 01:30:00 PM, [address] [place] [address], [phone], Progress Notes * Pina MATHISDOB:10/1954 (69 yo F)Acc No.[id number]:05/06/2024 Progress Note Patient:?PABLOCLINTONAlvaro MEHTA Provider:?Ephraim Fuentes DPM :1955???Age:69 Y???Sex:Female D ate:05/06/2024 Address:[address] [place] [address] [address], [id number] Pcp:Vicyk Whitman Subjective: * Chief Complaints: * ??? * Medical History:? Objective: * Vitals:? Assessment: Plan: * Treatment: * Images: * The named appointment provid er may or may not be the originator of this progress note, and it is not deemed complete until electronically signed by the appointment provider. Sign off status: Pending * Provider:?Ephraim Fuentes DPM Date:?2023 Generated for Sirisha pressley/Jasmeet/Ankita on:?07/25/2024 04:24 PM EDT
--- OUTSIDE RECORDS SUMMARY | 2024-07-25 16:24 | XMS_ITS ---
Author Organization [facility] Address [address] [facility] [place] [address] Care Team Providers Care Specialty Person Name Role Phone Vicky Whitman Primary Care Provider Ephraim Mercado Unavailable [phone] Allergies Allergen (clinical drug ingredient) Drug/Non Drug [...] Ordered Date Performed Result Body Sit e 22332-JHELNDR NAIL, 6 OR MORE 02/02/2024 N/A 12441-TDHL SKIN LESIONS, OVER 4 02/02/2024 N/A Encounters Encounter Location Date Provider Diagnosis [facility] [address] [address] 02/02/2024 Ephraim Fuentes Type 2 diabetes mellitus with diabetic polyneuropathy E11.42 and Tinea unguium B35.1 Assessments Encounter Date Diagnosis (ICD Code) Assessment Notes Treatment Notes Treatment Clinical Notes Section Notes 02/02/2024 Type 2 diabetes mellitus with diabetic polyneuropathy (ICD-10 - E11.42) 02/02/2024 Tinea unguium (ICD-10 - B35.1) Plan Of Treatment Pending Test Test Name Order Date 47158-MHFIMHM NAIL, 6 OR MORE 02/02/2024 01807-OQVE SKIN LESIONS, OVER 4 02/02/20 24 Next Appt Details Follow Up: 2 Months, Reason: Provider Name:Ephraim Fuentes , 08/16/2024 01:30:00 PM, [address] [place] [address], [address], Procedure Notes * Category Sub-Category Detail Notes [...] use of a nail nipper and/or dremel-type lens grinder and polisher, to a more viable healthy nail plate [...] to maintain effectiveness in symptomatic relief - 96241 Keratoma Treatment Parring or Cutting o f [...] instrumentation by the physician of record - 85322 Progress Notes * Pina MATHISDOB:10/1954 (69 yo F)Acc No.[id number]:02/02/2024 Progress Note Patient:?Alvaro MATHIS Provider:?Ephraim Fuentes DPM :1955???Age:68 Y???Sex:Female D ate:02/02/2024 Address:[facility] [place] [address], [place] Pcp:Vicky Whitman Subjective: * Chief Complaints: * [...] 7.8 * Examination: ???Ophthalmology Referral: ?DIABETES EYE EXAM?Procedure Performed:?Yes ?Date of Exam Performed?12/29/2023 ?Diabetic Retinopathy Screening:?Yes ?Findings of Diabetic Eye Exam:?no retinopathy?Neurological: ?SENSORY:? Neurological exam demonstrates, reduced light touch [...] for office visit today.?ORIENTED:?person, place, and time.?FOOT EXAM:?Lower Extremity Neurological Exam performed:?Yes ?Visual exam of foot performed:?Yes ?Date?02/02/2024 ?Footwear Evaluation?Footwear Evaluation performed:?Yes??? Assessment: * Assessment: 1.?Type 2 diabetes mellitus [...] use of a nail nipper and/or dremel-type lens grinder and polisher, to a more viable healthy nail plate [...] to maintain effectiveness in symptomatic relief - 91759.?Keratoma Treatment:?Parring or Cutting of Benign Hyperkeratotic Lesion(s)?(-57) [...] instrumentation by the physician of record - 40329.? * Procedure Codes:?67141 DEBRI DE NAIL, 6 OR MORE, Modifiers: XS 89128 TRIM SKIN LESIONS, OVER 4, Modifiers: XS * Preventive Medicine:? ??Counseling:?Tobacco use:?Patient counseled on the dangers of smoking and urged to quit:?02/02/2024 * Follow Up:?2 Months * Images: * Sign off status: Completed true * Provider:?Ephraim Fuentes DPM Date:?2023 Generated for Sirisha pressley/Jasmeet/Ankita on:?07/25/2024 04:24 PM EDT History and Physical Notes * HPI (History [...]
--- OUTSIDE RECORDS SUMMARY | 2024-07-25 16:24 | XMS_ITS | Patient Health Record ---
Author Organization [facility] Address [address] [place] [address] Care Team Providers Care Marketing Support Coordinator Name Role Phone Vicky Whitman Primary Care Provider Ephraim Mercado Unavailable [phone] Allergies Allergen (clinical drug ingredient) Drug/Non Drug [...] Problem Acquired hammer toe of right foot (0217249811555015 ) Other hammer toe(s) (acquired), right foot (M20.41) Active confirmed Response to treatment, Improvemen t Problem Acquired hammer toe of left foot (4848471738860424 ) Other hammer toe(s) (acquired), left foot (M20.42) Active confirmed Response to treatment, Improvemen t Problem Polyneuropathy due to type 2 diabetes mellitus (149001439) Type 2 diabetes mellitus with diabetic polyneuropathy (E11.42) Active confirmed Vital Signs Height 5ft in 02/02/2024 Weight 167 lbs 02/02/2024 BMI 32.61 kg/m2 02/02/2024 Procedures Procedure Date Ordered Date Performed Result Body Sit e 27928-SSEZ SKIN LESIONS, OVER 4 02/02/2024 N/A 85822-PNJYIWP NAIL, 6 OR MORE 02/02/2024 N/A 62981-REXS SKIN LESIONS, OVER 4 11/23/2023 N/A 66033-GDYPTMX NAIL, 6 OR MORE 11/23/2023 N/A Encounters Encounter Location Date Provider [facility] [address] [facility] [address] [place] [address] 11/23/2023 Ephraimbarrett Fuentes Type 2 diabetes mellitus with diabetic polyneuropathy E11.42 ; Tinea unguium B35.1 ; Other hammer toe(s) (acquired), right foot M20.41 and Other hammer toe(s) (acquired), left foot M20.[address] [address] 02/02/2024 Ephraim Fuentes Type 2 diabetes mellitus with diabetic polyneuropathy E11.42 and Tinea unguium B35.[address] [address] 08/05/2023 Ephraim Fuentes [address] [address] 05/04/2024 Ephraim Fuentes Assessments Encounter Date Diagnosis [...] Treatment Pending Test Test Name Order Date 26457-RBVNVNZ NAIL, 6 OR MORE 09/11/2020 40411-ZSGJRLH NAIL, 6 OR MORE 12/25/2020 23332-WLPEWAZ NAIL, 6 OR MORE 07/31/2021 02887-WYKLJIH NAIL, 6 OR MORE 11/20/2021 67200-SKDSYCX NAIL, 6 OR MORE 01/31/2022 65226-NPTOKMA NAIL, 6 OR MORE 04/25/2022 76473-ILBQBBK NAIL, 6 OR MORE 08/29/2022 95010-JDJXMPG NAIL, 6 OR MORE 11/14/2022 88494-AAILRBV NAIL, 6 OR MORE 03/24/2023 28042-XQCRYUP NAIL, 6 OR MORE 11/23/2023 25166-CITGHGP NAIL, 6 OR MORE 02/02/2024 21570-VDVA SKIN LESIONS, OVER 4 02/02/20 24 01312-CQXQ SKIN LESIONS, OVER 4 11/23/19 24 38876-BJQN SKIN LESIONS, OVER 4 03/24/20 23 62131-RARF SKIN LESIONS, OVER 4 11/15/19 23 61322-KLPQ SKIN LESIONS, OVER 4 08/30/19 23 33319-PASS SKIN LESIONS, OVER 4 04/25/20 22 49022-ZDUF SKIN LESIONS, OVER 4 02/01/20 22 90697-OZFW SKIN LESIONS, OVER 4 11/21/19 22 75542-MRPI SKIN LESIONS, OVER 4 08/01/19 22 35695-JYPZ SKIN LESIONS, 2 TO 4 12/26/19 21 Next Appt Details Provider Name:Ephraim Fuentes , 08/16/2024 01:30:00 PM, [address] [facility], [place], [address], Insurance Providers Payer Name Payer Address Payer Phone Subscriber Number Group Number Insured Name Patient Relationship to Insured Coverage Start Date Coverage End Date [facility] CCA SCO Claims [address] [facility] [place] [id number] Pina Gaytan Self - patient is the insured Medical (General) History Medical History History ICD Code Angina Anxiety Arthritis Back,Hip,and Knee pain CAD (Cholesterol) Cataracts Depression Diabetic border line Glaucoma Heart disease High blood pressure Chicken pox Measles Mumps thyroid UTI's Diabetes type ll Surgical History Surgery Date(Month/Year) 1988,1993 Stent/implant R eye 06/2015 cataract surgery Hospitalization History Reason Date(Month/Year) [facility] [place] mouth from breo ellipta-1 we ek given steroids 03/19/2022
--- OUTSIDE RECORDS SUMMARY | 2024-07-25 16:25 | XMS_ITS ---
Author Organization [facility] Address [address] [place] [address] Care Team Providers Care Plow Holder Name Role Phone Vicky Whitman Primary Care Provider Ephraim Mercado [phone] REASON FOR VISIT cx appt 05/06/24 Encounters Encounter Location Date Provider Diagnosis [address] [address] 05/04/2024 Ephraim Fuentes Plan Of Treatment Next Appt Details Provider Name:Ephraim Fuentes , 08/16/2024 01:30:00 PM, [address] [place] [address], [address], Progress Notes * Pina MATHISDOB:10/1954 (69 yo F)Acc No.[id number]:05/04/2024 Patient:?Alvaro MATHIS :1955???Age:69 Y???Sex:Female Address:[address] [place] [address] [address], [place], [address] * true * Date:? Generated for Printi ng/Faxing/eTransmitting on:?07/25/2024 04:24 PM EDT
--- OUTSIDE RECORDS SUMMARY | 2024-07-25 16:25 | XMS_ITS | Patient Health Record ---
Author Organization [facility] Address [address] [place] [address] Care Team Providers Care Manager Drug Name Role Phone Po Vicky BROCK Primary Care Provider Ras Rios [phone] Allergies Allergen (clinical drug ingredient) Drug/Non Drug Allergy documented on EMR Reaction Allergy Type Onset Date Status food allergies (uncoded) Unknown Allergy Active Latex gloves (uncoded) Unknown Allergy Active Reason For Referral No Information Medications Medication [...] Once a day for 30 day(s) Active Immunizations Vaccine Route Administration Date Status Comme nts Influenza Unknown 03/02/2019 Administered Influenza Unknown 03/06/2021 Administered Social History Tobacco Use: Social History Observation Description Date Details (start date - stop date) Current Smoker NA - NA Tobacco Use/Smoking Question Answer Notes Patient is [...] Never (0 point) Points 3 Interpretation Positive Section Notes: Smoker 4 cigs QD.no sig alco hol Smoker 4 cigs QD.no sig alco hol Problems Problem Type SNOMED Code ICD Code Onset Dates Problem Status W/U Status Risk Notes Problem 868189989 Encounter for screening for malignant neoplasm of colon (Z12.11) Active confirmed Problem 095267143640629 Preprocedural examination (Z01.818) Active confirmed Problem 688804178 Irregular bowel habits (R19.8) Active confirmed Problem Diverticulosis of colon (665477370) Diverticulosis of colon (K57.30) Active confirmed Problem 530648073945685 History of Clostridioides difficile infection (Z86.19) Active confirmed Plan Of Treatment Future Test Test Name Order Date COLONOSCOPY 06/08/2019 COLONOSCOPY 08/07/2021 Insurance Providers Payer Name Payer Address Payer Phone Subscriber Number Group Number Insured Name Patient Relationship to Insured Coverage Start Date Coverage End Date [facility] [address] [place] [address] [id number] MARCELINA GEIGER Self - patient is the insured Medical (General) History Medical History History ICD Code Denies CVA,renal disease COPD [place]--s/p stent placement in 2015 Hypertension Glaucoma Neg [...]
== END 2024-07-25 15:26 | disposition home or self-care (01) ==
PROVIDERS: PCP Internal Medicine; Visit Provider Nurse Practitioner Family
DX: N39.0 Urinary tract infection, site not specified (principal); R35.0 Frequency of micturition; R39.15 Urgency of urination; R32 Unspecified urinary incontinence; Z13.9 Encounter for screening, unspecified
CPT/HCPCS: 99213; G2211

== ENCOUNTER → 2024-07-25 14:22 | Outpatient (BNVA) | payer OTHER, SELFPAY | PROVIDERS: PCP Internal Medicine; Visit Provider Nurse Practitioner Family | DX: N39.0 Urinary tract infection, site not specified (principal); R35.0 Frequency of micturition; R39.15 Urgency of urination; R32 Unspecified urinary incontinence | CPT/HCPCS: 51798; 81003; 99212 ==

== ENCOUNTER 2024-08-04 13:08 | Outpatient (REF) | payer OTHER, SELFPAY ==
--- NOTE | ~2024-08-04 | MM_ITS ---
EXAMINATION: MM DIAGNOSTIC DIGITAL BREAST TOMOSYNTHESIS, RIGHT CLINICAL INFORMATION: Patient had a biopsy right breast ultrasound February 2024 the marker clip did not correlate with the original asymmetry on CC view and the pathology was benign. Six-month follow-up recommended. COMPARISON: Mammography: There is on PACS. TECHNIQUE: Digital breast tomosynthesis is performed in both the craniocaudal and mediolateral oblique views along with computer-aided detection (CAD). Synthesized 2D images are generated from the tomosynthesis. FINDINGS: There are scattered areas of fibroglandular density (ACR BI-RADS breast composition Category b). Previously seen asymmetry in the lateral right breast middle depth on CC view is not significantly changed from prior. Marker clip in the upper outer breast posteriorly correlates with recent benign needle core biopsy. No other suspicious masses calcifications or other abnormal findings. MM/MM tomosynthesis diagnostic RT IMPRESSION: Asymmetry retroareolar region slightly lateral breast on CC view recommend six-month follow-up mammography when the patient is due for bilateral screening mammography to demonstrate stability. ASSESSMENT: BI-RADS BI-RADS 3 - Probably benign finding(s) - 6 month follow-up suggested RECOMMENDATION: 6 Month F/U Results were provided to the patient at time of visit by the technologist. This patient's information was entered into a reminder system with a target due date for their next mammogram. Electronically signed by: Orquidea Salazar DO 08/04/2024 02:25 PM EDT
--- OUTSIDE RECORDS SUMMARY | 2024-08-04 15:38 | XMS_ITS | Data Portability ---
Author Organization [employer] [facility] [place] [facility] Address [address] [place] [address] Care Team Providers Care Computer Information Systems Professor Name Role Phone [facility] Referring Provider Assessment Encounter Date Assessment Date Assessment LastModified by Organization Details LastModified Time 10/22/2022 10/22/2022 I have reviewed and agree with the assessment and plan as documented by the printed circuit boards plasma etcher. I provided real-time medical direction for this [...] is intermediate for macrobid. Will send bactrim. [email or web address] Not available 10/25/2022 15:03:49 Plan of Treatment Reminders Order Date Submit Date Provider Last Modified By Organization Details Last Modified Time Details Appointments None recorded. Lab culture, urine 2022 023 [facility] (Centralized Electronic Ordering - All Locations), Patient Can Go To The Location Of Their Choice, [address] 11:11:00 urinalysis , dipstick 2022 023 [facility], [address] [place] [address], [place], [address], 15:49:26 Referral None recorded. Procedures None recorded. Surgeries None recorded. Imaging None recorded. Medication Orders Macrobid 100 mg capsule 2022 023 [facility][id number], [address] [place], [place], [id number], 10:59:20 Bactrim DS 800 mg-160 mg tablet 2022 023 [facility] #[id number], [address] [place], [place], [phone], 15:04:26 Patient TargetsNo targets recorded. Patient InstructionsNo instructions recorded. Reason for Referral None Reported. Results Created Date Observation Date Name Description Value Unit Range Abnormal Flag Note LastModifiedBy Organization Detail LastModifiedTime 10/23/1910/22/2022 URINE CULTU RE specimen description URINE Not Available [facility] (Centralized Electronic Ordering - All Locations) Patient Can Go To The Location Of Their Choice, [address] 10/25/2022 11:11:00 10/23/1910/22/2022 URINE CULTU RE special [...] Go To The Location Of Their Choice, [address] 10/25/2022 11:11:00 10/23/1910/25/2022 URINE CULTU RE report [...] Go To The Location Of Their Choice, [address] 10/25/2022 11:11:00 10/23/1910/25/2022 URINE CULTU RE tetracycline TETRAC YCLINE SUSCEP TIBLE susceptib le Not Available [facility] (Centralized Electronic Ordering - All Locations) Patient Can Go To The Location Of Their Choice, [address] 10/25/2022 11:11:00 Result Notes None recorded. Medical [...] [degF] 98 % 98 % 70 /min 09413.0 88 g 18 /min 146 mm[Hg] 76 [...] SNOMED-CT Code Diagnosis ICD10 Code Diagnosis Note 38081 Josh Buckley MD Main - instED [address] [place] [address] 10/22/2022 10:52:47 10/23/2022 10:59:30 Dysuria 21907485 R30.0 Acute cystitis 83230351 N30.00 Health Concerns Section Related Observation LastModified by Organization Detai ls LastModified Time None Recorded Concern Status LastModified by Organization Details LastModified Time None Recorded Advance Directives Directive None Recorded Payers Encounter Date Sequence Insurance Name Policy Number Policy Vasquez Covered Member ID Vasquez Member ID Guarantor Name 10/22/2022 1 [facility] - DOS ON OR AFTER 2022 - DUAL ELIGIBLE - LONGTERM OPTIONS AND ONE CARE (MEDICARE REPLACEMENT/ADV ANTAGE - HMO) Pina langley [id number] Pina ordoñez Notes Date Note Type Note [...] visit tomorrow 10/22. Josh Buckley MD [address] [facility],[address], [place], [address], [place] - [employer] RUBALCAVA 10/25/2022 15:04:26 OBGyn Episode No OBEpisode recorded.
--- OUTSIDE RECORDS SUMMARY | 2024-08-04 15:38 | XMS_ITS ---
Author Organization [facility] Address [address] [place] [address] Care Team Providers Care Rental Agent Name Role Phone Vicky Whitman Primary Care Provider Ephraim Mercado Unavailable [phone] Allergies Allergen (clinical drug ingredient) Drug/Non Drug [...] Ordered Date Performed Result Body Sit e 65245-IZPSDPE NAIL, 6 OR MORE 02/02/2024 N/A 34539-NVXX SKIN LESIONS, OVER 4 02/02/2024 N/A Encounters Encounter Location Date Provider Diagnosis [facility] [address] [address] 02/02/2024 Ephraim Fuentes Type 2 diabetes mellitus with diabetic polyneuropathy E11.42 and Tinea unguium B35.1 Assessments Encounter Date Diagnosis (ICD Code) Assessment Notes Treatment Notes Treatment Clinical Notes Section Notes 02/02/2024 Type 2 diabetes mellitus with diabetic polyneuropathy (ICD-10 - E11.42) 02/02/2024 Tinea unguium (ICD-10 - B35.1) Plan Of Treatment Pending Test Test Name Order Date 42200-HRPYDZY NAIL, 6 OR MORE 02/02/2024 63617-JOWQ SKIN LESIONS, OVER 4 02/02/20 24 Next Appt Details Follow Up: 2 Months, Reason: Provider Name:Ephraim Fuentes , 08/16/2024 01:30:00 PM, [address] [place] [address], [address], Procedure Notes * Category Sub-Category Detail Notes [...] use of a nail nipper and/or dremel-type grinder chipper, to a more viable healthy nail plate [...] to maintain effectiveness in symptomatic relief - 13421 Keratoma Treatment Parring or Cutting o f [...] instrumentation by the physician of record - 80709 Progress Notes * Pina MATHISDOB:10/1954 (69 yo F)Acc No.[id number]:02/02/2024 Progress Note Patient:?Alvaro MATHIS Provider:?Ephraim Fuentes DPM :1955???Age:68 Y???Sex:Female D ate:02/02/2024 Address:[facility] [place] [address], [place] Pcp:Vicky Whitman Subjective: * Chief Complaints: * [...] use of a nail nipper and/or dremel-type grinder chipper, to a more viable healthy nail plate [...] to maintain effectiveness in symptomatic relief - 29880.?Keratoma Treatment:?Parring or Cutting of Benign Hyperkeratotic Lesion(s)?(-57) [...] instrumentation by the physician of record - 54748.? * Procedure Codes:?54131 DEBRI DE NAIL, 6 OR MORE, Modifiers: XS 01617 TRIM SKIN LESIONS, OVER 4, Modifiers: XS * Preventive Medicine:? ??Counseling:?Tobacco use:?Patient counseled on the dangers of smoking and urged to quit:?02/02/2024 * Follow Up:?2 Months * Images: * Sign off status: Completed true * Provider:?Ephraim Fuentes DPM Date:?2023 Generated for Sirisha pressley/Jasmeet/Ankita on:?08/04/2024 03:38 PM EDT History and Physical Notes * [...]
--- OUTSIDE RECORDS SUMMARY | 2024-08-04 15:38 | XMS_ITS | Patient Health Record ---
Author Organization [facility] Address [address] [place] [address] Care Team Providers Care Rn Behavioral Health Name Role Phone Vicky Whitman Primary Care Provider Ephraim Mercado Unavailable [phone] Allergies Allergen (clinical drug ingredient) Drug/Non Drug [...] Problem Acquired hammer toe of right foot (9917936139958006 ) Other hammer toe(s) (acquired), right foot (M20.41) Active confirmed Response to treatment, Improvemen t Problem Acquired hammer toe of left foot (6987440021418225 ) Other hammer toe(s) (acquired), left foot (M20.42) Active confirmed Response to treatment, Improvemen t Problem Polyneuropathy due to type 2 diabetes mellitus (172123519) Type 2 diabetes mellitus with diabetic polyneuropathy (E11.42) Active confirmed Vital Signs Height 5ft in 02/02/2024 Weight 167 lbs 02/02/2024 BMI 32.61 kg/m2 02/02/2024 Procedures Procedure Date Ordered Date Performed Result Body Sit e 47179-MZGVQWQ NAIL, 6 OR MORE 11/23/2023 N/A 56411-VZPV SKIN LESIONS, OVER 4 11/23/2023 N/A 46447-OVHGHZB NAIL, 6 OR MORE 02/02/2024 N/A 01300-AUJB SKIN LESIONS, OVER 4 02/02/2024 N/A Encounters Encounter Location Date Provider Diagnosis [facility] [address] [facility] [address] [place] [address] 11/23/2023 Ephraimbarrett Jacobsier Type 2 diabetes mellitus with diabetic polyneuropathy E11.42 ; Tinea unguium B35.1 ; Other hammer toe(s) (acquired), right foot M20.41 and Other hammer toe(s) (acquired), left foot M20.[address] [address] 02/02/2024 Ephraim Fuentes Type 2 diabetes mellitus with diabetic polyneuropathy E11.42 and Tinea unguium B35.[address] [address] 08/05/2023 Ephraim Fuentes [address] [address] 05/04/2024 Ephraim Fuentes Assessments Encounter Date Diagnosis [...] Treatment Pending Test Test Name Order Date 54681-JXCLCJZ NAIL, 6 OR MORE 09/11/2020 18675-XAHNXJP NAIL, 6 OR MORE 12/25/2020 55132-HTVCTSG NAIL, 6 OR MORE 07/31/2021 84628-GZACJWD NAIL, 6 OR MORE 11/20/2021 59069-IAFIGDB NAIL, 6 OR MORE 01/31/2022 87014-UDOQWVW NAIL, 6 OR MORE 04/25/2022 74508-YUGFNVW NAIL, 6 OR MORE 08/29/2022 13349-LGCUFTW NAIL, 6 OR MORE 11/14/2022 93288-OOZNIZM NAIL, 6 OR MORE 03/24/2023 95960-TMXBBFS NAIL, 6 OR MORE 11/23/2023 10200-PWJOYJV NAIL, 6 OR MORE 02/02/2024 74307-IPVF SKIN LESIONS, OVER 4 02/02/20 24 96689-NLFC SKIN LESIONS, OVER 4 11/23/19 24 77208-SGXP SKIN LESIONS, OVER 4 03/24/20 23 25619-EKZS SKIN LESIONS, OVER 4 11/15/19 23 77882-KXRS SKIN LESIONS, OVER 4 08/30/19 23 60188-XMNY SKIN LESIONS, OVER 4 04/25/20 22 07170-SFSM SKIN LESIONS, OVER 4 02/01/20 22 16740-KOQC SKIN LESIONS, OVER 4 11/21/19 22 23266-RLCT SKIN LESIONS, OVER 4 08/01/19 22 60351-WCVP SKIN LESIONS, 2 TO 4 12/26/19 21 Next Appt Details Provider Name:Ephraim Fuentes , 08/16/2024 01:30:00 PM, [address] [facility], [place], [address], Insurance Providers Payer Name Payer Address Payer Phone Subscriber Number Group Number Insured Name Patient Relationship to Insured Coverage Start Date Coverage End Date [facility] CCA SCO Claims [address] [facility] [place] [id number] Pina Gaytan Self - patient is the insured Medical (General) History Medical History History ICD Code Angina Anxiety Arthritis Back,Hip,and Knee pain CAD (Cholesterol) Cataracts Depression Diabetic border line Glaucoma Heart disease High blood pressure Chicken pox Measles Mumps thyroid UTI's Diabetes type ll Surgical History Surgery Date(Month/Year) 1988,1993 Stent/implant R eye 06/2015 cataract surgery Hospitalization History Reason Date(Month/[place] [facility] [place] from breo ellipta-1 we ek given steroids 03/19/2022
--- OUTSIDE RECORDS SUMMARY | 2024-08-04 15:39 | XMS_ITS ---
Author Organization [facility] Address [address] [place] [address] Care Team Providers Care Scientific Recruiter Name Role Phone Vicky Whitman Primary Care Provider Ephraim Mercado Unavailable [phone] Encounters Encounter Location Date Provider Diagnosis [address] [address] 05/06/2024 Ephraim Fuentes Plan Of Treatment Next Appt Details Provider Name:Ephraim Fuentes , 08/16/2024 01:30:00 PM, [address] [place] [address], [address], Progress Notes * Pina MATHISDOB:10/1954 (69 yo F)Acc No.[id number]:05/06/2024 Progress Note Patient:?PABLOCLINTONAlvaro MEHTA Provider:?Ephraim Fuentes DPM :1955???Age:69 Y???Sex:Female D ate:05/06/2024 Address:[address] [place] [address] [address], [place] Pcp:Vicky Whitman Subjective: * Chief Complaints: * [...]
--- OUTSIDE RECORDS SUMMARY | 2024-08-04 15:39 | XMS_ITS | Patient Health Record ---
Author Organization [facility] Address [address] [place] [address] Care Team Providers Care Freight Clerk Name Role Phone Po Vicky BROCK Primary Care Provider Ras Rios [phone] Allergies Allergen (clinical drug ingredient) Drug/Non Drug [...] Problem Status W/U Status Risk Notes Problem 397407754 Encounter for screening for malignant neoplasm of colon (Z12.11) Active confirmed Problem 984242383731991 Preprocedural examination (Z01.818) Active confirmed Problem 659601785 Irregular bowel habits (R19.8) Active confirmed Problem Diverticulosis of colon (628294656) Diverticulosis of colon (K57.30) Active confirmed Problem 520784359185949 History of Clostridioides difficile infection (Z86.19) Active confirmed Plan Of Treatment Future Test Test Name Order Date COLONOSCOPY 06/08/2019 COLONOSCOPY 08/07/2021 Insurance Providers Payer Name Payer Address Payer Phone Subscriber Number Group Number Insured Name Patient Relationship to Insured Coverage Start Date Coverage End Date [facility] [address] [place] [address] [id number] MARCELINA GEIGER Self - patient is the insured Medical (General) History Medical History History ICD Code Denies CVA,renal disease COPD [place]--s/p stent placement in 2015 Hypertension Glaucoma Neg [...]
--- OUTSIDE RECORDS SUMMARY | 2024-08-04 15:39 | XMS_ITS ---
Author Organization [facility] Address [address] [place] [address] Care Team Providers Care Program Supervisor Name Role Phone Vicky Whitman Primary Care Provider Ephraim Mercado [phone] REASON FOR VISIT cx appt 05/06/24 Encounters Encounter Location Date Provider Diagnosis [address] [address] 05/04/2024 Ephraim Fuentes Plan Of Treatment Next Appt Details Provider Name:Ephraim Fuentes , 08/16/2024 01:30:00 PM, [address] [place] [address], [address], Progress Notes * Pina MATHISDOB:10/1954 (69 yo F)Acc No.[id number]:05/04/2024 Patient:?Alvaro MATHIS :1955???Age:69 Y???Sex:Female Address:[address] [place] [address] [address], [place], [address] * true * Date:? Generated for Printi ng/Faxing/eTransmitting on:?08/04/2024 03:38 PM EDT
== END 2024-08-04 13:09 | disposition home or self-care (01) ==
LOC: HO.MAMMO 13:08
PROVIDERS: PCP Internal Medicine; Visit Provider Internal Medicine
DX: N64.89 Other specified disorders of breast (principal); Z98.890 Other specified postprocedural states
CPT/HCPCS: 77061; 77065

== ENCOUNTER → 2024-08-04 13:30 | Outpatient (BNV) | payer OTHER, SELFPAY | PROVIDERS: PCP Internal Medicine; Visit Provider Internal Medicine | DX: R92.321 Mammographic fibroglandular density, right breast (principal) | CPT/HCPCS: 77065; G0279 ==

== ENCOUNTER 2024-08-10 10:13 | Outpatient (REF) | payer OTHER, SELFPAY ==
[2024-08-10 13:39] LABS: Appearance Urine Turbid; Color Urine Yellow; Glucose Urine UA >=1000 mg/dL (Negative); Leukocyte Esterase Urine Large (3+) (Negative); Nitrite Urine Negative (Negative); PH 5.5 (5.0-9.0); UMIC TRIGGER UA YES; Urine Blood Moderate (2+) (Negative); Urine Ketones Negative (Negative); Urine Protein 30 (1+) mg/dL (Neg-Trace)
[2024-08-10 14:28] LABS: Bacteria Urine Trace (None Seen); Hyaline Casts Urine 0-2 /LPF (0-2); RBC Urine 0-2 /HPF (0-2); Squamous Epithelial Cell Urine 0-2 /HPF (0-2); WBC Clumps Urine Present; WBC Urine >50 /HPF (0-5)
== END 2024-08-10 10:14 | disposition home or self-care (01) ==
LOC: HO.HMGCLDS 10:13
PROVIDERS: PCP Internal Medicine; Visit Provider Nurse Practitioner Family
DX: N39.0 Urinary tract infection, site not specified (principal)
CPT/HCPCS: 81001; 87086

== ENCOUNTER 2024-08-11 12:51 | Outpatient (AMB) | payer OTHER, SELFPAY ==
[2024-08-11 12:53] VITALS: BP 120/76; PULSE 64; BMI 30.8
--- NOTE | 2024-08-11 12:53 | A.OFFVIS_ITS ---
Vital Signs 08/11/24 12:53 Height 5 ft 1 in Weight 163 lb 2.273 oz BMI 30.8 BP 120/76 Blood Pressure Location Lt brachial Position Sitting Pulse 64 Intake Visit Reasons: 1 yr f/up Intake Note: 1 year follow-up with ekg hearts ok having eye stent 09/07 has had uti for 3 month Dredge Hand Required: No Allergies LATEX Allergy (Intermediate, Verified 07/25/24 15:22) rash MOLD Allergy (Intermediate, Verified 07/25/24 15:22) rash NONORGANIC FOOD Allergy (Intermediate, Verified 07/25/24 15:22) diarrhea Yeast Allergy (Intermediate, Verified 07/25/24 15:22) Diarrhea Medication List - Last Reconciled 08/11/24 by Alli Hayes MD albuterol sulfate 90 mcg/actuation (Proventil HFA) 2 puffs inhalation Q6H PRN ammonium lactate 12% 1 appl topical BID aspirin (Adult Low Dose Aspirin) 81 mg PO DAILY atorvastatin 80 mg PO DAILY [BEDSIDE COMMODE As directed] betamethasone dipropionate 0.05% apply to hands twice daily Breo Ellipta 200-25 mcg/dose (fluticasone furoate-vilanterol) 1 ea PO DAILY NS cholecalciferol (vitamin D3) 25 mcg PO DAILY clonazepam 1 mg PO Q8H [commode As directed] [diabetic shoes As directed] empagliflozin (Jardiance) 10 mg PO DAILY estradiol 0.01%(0.1mg/gram) vaginally 3 times a week; pea sized amount to urethra 3 times a week 30 days ezetimibe (Zetia) 10 mg PO BEDTIME flash glucose scanning reader (GnammoStyle Dany 2 Darien) As directed flash glucose sensor (FreeStyle Dany 2 Sensor kit) As directed fluconazole 150 mg PO Q3D 2 doses fluticasone propionate 50 mcg/actuation 2 sprays intranasal DAILY gabapentin 100 mg PO BEDTIME [GRABBER TOOL As directed] hydrocortisone 2.5% (Proctosol HC) 1 appl NC BID-QID PRN incontinence pad, liner, disp 8 pads per day [id number] Contour Plus BC pad , Inco, Max, swo incontinence pad, liner, disp As directed [incontinent wipes As directed] lactulose 15 mL PO DAILY 90 days levothyroxine 100 mcg PO DAILY [LIFT RECLINER As directed] lisinopril 30 mg PO DAILY 90 days metformin 500 mg PO BID 30 days metoprolol succinate ER 25 mg PO DAILY mirabegron ER (Myrbetriq) 50 mg PO DAILY miscellaneous medical supply As directed nicotine (polacrilex) 2 mg buccal Q2H nitroglycerin 0.4 mg sublingual Q5M PRN 30 days nystatin (Nystop) 1 appl topical BID nystatin 2 mL PO TID 15 days oxycodone 5 mg PO BID 30 days [Pad bladder ultra As directed 8 times day ] tafluprost (PF) 0.0015% (Zioptan (PF)) 1 drp ophthalmic (eye) QPM timolol maleate (PF) 0.5% 1 drp ophthalmic (eye) BID venlafaxine ER 75 mg PO BEDTIME [WIPES As directed] HPI Comments Details: Pina comes for follow-up. He has not undergone a vasodilating myocardial perfusion imaging since last year. She was also on not undergone the hip surgery. She remains limited in exercise activity. She has currently been suffering from urinary tract infection in his currently been diagnose with fungal bladder infection. She has been on Jardiance and this should be discontinued given her fungal infection. Patient has intermittent episodes of chest tightness although not with exertion. This is limited her. She denies consistent exertional chest discomfort. Denies any shortness of breath, orthopnea, PND. Taking all her medications. She was scheduled to undergo eye surgery for glaucoma in near future which low risk local surgery [facility] Medical History Anxiety and depression Thrush, oral Allergic rhinitis Franky's disease Goiter diffuse Cataract Glaucoma Tobacco abuse Type 2 diabetes mellitus with hyperglycemia GERD (gastroesophageal reflux disease) Obesity (BMI 30-39.9) COPD (chronic obstructive pulmonary disease) Coronary artery disease Carpal tunnel syndrome Hypercholesterolemia Hypothyroid Hypertension Surgical History Hx of section History of tubal ligation Family History Father Myocardial infarct Maternal Grandmother Breast cancer Mother Pancreatic cancer Sister Bipolar 1 disorder Other Mental problem Social History Household Members: Family Housing: House Do you presently have visiting nurse or other home services: No Alcohol intake: current Alcohol intake frequency: holidays/special occasions only Patient Tobacco Use Status: Current everyday Tobacco user Tobacco use type: Cigarette Cigarettes Per Day: 4 Years Smoked: 4 cigarettes a day e-Cigarette/Vaping Use: Currently Using Advance Directives Date on File: 03/21/22 service: No Current occupational status: disabled Cognitive needs: No Hearing needs: No Vision needs: Yes Review of Systems Const Denies chills, Denies fatigue, Denies fever(s), Denies frequent falls, Denies weakness, Denies weight gain and Denies weight loss ENT Denies dizziness Card Denies chest pain, Denies leg edema, Denies lightheadedness, Denies palpitations, Denies dyspnea, Denies dyspnea on exertion, Denies orthopnea and Denies other (loss of consciousness) Resp Denies cough, Denies dyspnea and Denies dyspnea on exertion GI Denies hematochezia and Denies change in stool character Musc Denies abnormal gait, Denies muscle weakness, Denies numbness, Denies radiating pain into limb and Denies tingling Neuro Denies abnormal gait, Denies dizziness, Denies frequent falls, Denies numbness, Denies tingling and Denies weakness Endo Denies fatigue and Denies palpitations Physical Exam Vital Signs: Last Vital Signs Pulse 64 08/11/24 12:53 BP 120/76 08/11/24 12:53 BMI result Body Mass Index 30.8 Const General: cooperative, comfortable, no acute distress, alert and awake Nutritional Appearance: obese Orientation/consciousness: patient oriented x3 Limitations: ambulation with cane HEENT Head: Yes normocephalic and Yes atraumatic Eyes General: appearance normal, both eyes and all related structures Neck Neck: Yes trachea midline, Yes supple and Yes no JVD Carotids: no bruits Chest Chest palpation & inspection: normal inspection of the chest Resp Effort & Inspection: normal respiratory effort Auscultation: wheezes expiratory wheezes, inspiratory wheezes, left lower and right lower and diminished lung sounds Cardio Jugular venous distension: no JVD Rate: regular rate Rhythm: regular rhythm and abnormal rhythm with ectopic beats Heart sounds: S1 normal heart sound present and S2 normal heart sound present GI Auscultation: normal bowel sounds Skin General skin exam: no rashes or lesions noted and ecchymosis Neuro General: patient oriented x3 and no focal motor deficits Extrem General: Yes no clubbing, cyanosis or edema Psych Appearance: grossly normal Office Procedures EKG Details: EKG shows normal sinus rhythm with first-degree AV block with low-voltage QRS 08251-Dxwfnacghailxpand, Complete Assessment & Plan Assessment & Plan (1) Coronary artery disease: Comment: Echo April 2019 normal LV Pseudonormal filling, pericardial effusion July 2019 moderate pericardial effusion PCI done [facility] June 2015 Code(s): I25.10 - Atherosclerotic heart disease of [place] coronary artery without angina pectoris Category: Medical Qualifiers: Coronary Disease-Associated Artery/Lesion type: [place] artery [place] vs. transplanted heart: [place] heart Associated angina: without angina Qualified Code(s): I25.10 - Atherosclerotic heart disease of [place] coronary artery without angina pectoris Plan: CAD with prior LAD stenting. No recurrent symptoms of angina but has intermittent episode of chest tightness. Needs vasodilating myocardial perfusion imaging to assess for the same. Continue aggressive risk factor modification. Continue lifelong aspirin therapy. Continue high-intensity statin as well as ezetimibe therapy with target goal LDL less than 55 mg/dL, well optimized at this point time. Continue aggressive blood pressure control. Also needs aggressive diabetes control which is currently being optimized through your office with goal hemoglobin A1c less than 7%. However currently having urinary fungal infection which is probably related to her Jardiance use. Consider discontinuing it and switching to an alternative therapy. (2) Hypertension: Code(s): I10 - Essential (primary) hypertension Category: Medical Qualifiers: Hypertension type: essential hypertension Qualified Code(s): I10 - Essential (primary) hypertension Plan: Hypertension which is well optimized. Continue current blood pressure control. Importance of good blood pressure control was discussed. Target goal blood pressure less than 130/84. Low-salt diet was discussed advised to intermittently monitor blood pressure at home maintain a log. (3) Preoperative cardiovascular examination: Code(s): Z01.810 - Encounter for preprocedural cardiovascular examination Plan: Preoperative cardiovascular risk stratification for ocular surgery which is considered a low risk surgery. She is optimized to undergo that surgery under local anesthesia without any further cardiovascular testing. Continue all medications in the perioperative time. Although if she requires hip surgery which is much higher cardiovascular risk will need vasodilating myocardial perfusion imaging as above for further risk stratification. Follow up in the clinic otherwise in 1 year's time, sooner p.r.n.. Thank you for allowing me to partake in her care Coding Level of Care Code Est Pt Level 4 (79906) Complex EM visit Add On G2211 Diagnoses Coronary artery disease involving [place] coronary artery of [place] heart without angina pectoris I25.10 Coronary Disease-Associated Artery/Lesion type: [place] artery [place] vs. transplanted heart: [place] heart Associated angina: without angina Essential hypertension I10 Hypertension type: essential hypertension Preoperative cardiovascular examination Z01.810 CPT Codes EKG - CPT: 50716-Othfargrqsusxdbbh, Complete ([id number])
--- OUTSIDE RECORDS SUMMARY | 2024-08-11 15:52 | XMS_ITS | Patient Health Record ---
[facility] Address [address] [place] [address] Care Team Providers Care Configuration Management Administrator Name Role Phone Vicky Whitman Primary Care Provider Ephraim Mercado Unavailable [phone] Allergies Allergen (clinical drug ingredient) Drug/Non Drug [...] Problem Acquired hammer toe of right foot ([id number] ) Other hammer toe(s) (acquired), right foot (M20.41) Active confirmed Response to treatment, Improvemen t Problem Acquired hammer toe of left foot (1213354917709596 ) Other hammer toe(s) (acquired), left foot (M20.42) Active confirmed Response to treatment, Improvemen t Problem Polyneuropathy due to type 2 diabetes mellitus (610163811) Type 2 diabetes mellitus with diabetic polyneuropathy (E11.42) Active confirmed Vital Signs Height 5ft in 02/02/2024 Weight 167 lbs 02/02/2024 BMI 32.61 kg/m2 02/02/2024 Procedures Procedure Date Ordered Date Performed Result Body Sit e 76058-RZAHMMQ NAIL, 6 OR MORE 11/23/2023 N/A 58236-UIVL SKIN LESIONS, OVER 4 11/23/2023 N/A 57317-DKGACCL NAIL, 6 OR MORE 02/02/2024 N/A 90682-TDNI SKIN LESIONS, OVER 4 02/02/2024 N/A Encounters Encounter Location Date Provider Diagnosis [facility] [address] [facility] [address] [place] [address] 11/23/2023 Ephraim Fuentes Type 2 diabetes mellitus with diabetic polyneuropathy E11.42 ; Tinea unguium B35.1 ; Other hammer toe(s) (acquired), right foot M20.41 and Other hammer toe(s) (acquired), left foot M20.[address] [address] 02/02/2024 Ephraim Fuentes Type 2 diabetes mellitus with diabetic polyneuropathy E11.42 and Tinea unguium B35.[address] [address] 05/04/2024 Ephraim Fuentes Assessments Encounter Date Diagnosis [...] Treatment Pending Test Test Name Order Date 85068-UUJMJBB NAIL, 6 OR MORE 09/11/2020 82961-FRVJBLU NAIL, 6 OR MORE 12/25/2020 21592-LIUBPZP NAIL, 6 OR MORE 07/31/2021 85675-YRZDLKI NAIL, 6 OR MORE 11/20/2021 44003-IFUXVML NAIL, 6 OR MORE 01/31/2022 91057-UZXYJYB NAIL, 6 OR MORE 04/25/2022 64077-SSEVNRC NAIL, 6 OR MORE 08/29/2022 54746-BRIJPAY NAIL, 6 OR MORE 11/14/2022 89848-NUPDYHZ NAIL, 6 OR MORE 03/24/2023 25578-ILZOEDN NAIL, 6 OR MORE 11/23/2023 87560-OVMLPFA NAIL, 6 OR MORE 02/02/2024 42498-OPOD SKIN LESIONS, OVER 4 02/02/20 24 22209-RYEJ SKIN LESIONS, OVER 4 11/23/19 24 64718-KHMZ SKIN LESIONS, OVER 4 03/24/20 23 20174-CBIC SKIN LESIONS, OVER 4 11/15/19 23 75254-PYYO SKIN LESIONS, OVER 4 08/30/19 23 44214-FPPK SKIN LESIONS, OVER 4 04/25/20 22 41245-JRMW SKIN LESIONS, OVER 4 02/01/20 22 97998-FKKV SKIN LESIONS, OVER 4 11/21/19 22 25192-TPIN SKIN LESIONS, OVER 4 08/01/19 22 22486-SMNM SKIN LESIONS, 2 TO 4 12/26/19 21 Next Appt Details Provider Name:Ephraim Fuentes , 08/16/2024 01:30:00 PM, [address] [place] [address], [phone], Insurance Providers Payer Name Payer Address Payer Phone Subscriber Number Group Number Insured Name Patient Relationship to Insured Coverage Start Date Coverage End Date [facility] [employer] Claims [address] [facility] [place] [address] [id number] Pina Gaytan Self - patient is the insured Medical (General) History Medical History History ICD Code Angina Anxiety Arthritis Back,Hip,and Knee pain CAD (Cholesterol) Cataracts Depression Diabetic border line Glaucoma Heart disease High blood pressure Chicken pox Measles Mumps thyroid UTI's Diabetes type ll Surgical History Surgery Date(Month/Year) 1988,1993 Stent/implant R eye 06/2015 cataract surgery Hospitalization History Reason Date(Month/Year) [facility] [place] mouth from [place] ellipta-1 we ek given steroids 03/19/2022
--- OUTSIDE RECORDS SUMMARY | 2024-08-11 15:52 | XMS_ITS | Data Portability ---
Author Organization [employer] [facility] [place] [facility] Address [address] [place] [address] Care Team Providers Care Cut Plug Packer Name Role Phone [facility] Referring Provider Assessment Encounter Date Assessment Date Assessment LastModified by Organization Details LastModified Time 10/22/2022 10/22/2022 I have reviewed and agree with the assessment and plan as documented by the human service technician. I provided real-time medical direction for this [...] is intermediate for macrobid. Will send bactrim. [email or web address] Not available 10/25/2022 15:03:49 Plan of Treatment Reminders Order Date Submit Date Provider Last Modified By Organization Details Last Modified Time Details Appointments None recorded. Lab culture, urine 2022 023 [facility] (Centralized Electronic Ordering - All Locations), Patient Can Go To The Location Of Their Choice, [address] 11:11:00 urinalysis , dipstick 2022 023 [facility], [address] [place] [address], [place], [address], 15:49:26 Referral None recorded. Procedures None recorded. Surgeries None recorded. Imaging None recorded. Medication Orders Macrobid 100 mg capsule 2022 023 [id number], [address] [place], [place], [phone], 10:59:20 Bactrim DS 800 mg-160 mg tablet 2022 023 [facility]829[facility], [address] [place], [place], [phone], 15:04:26 Patient TargetsNo targets recorded. Patient InstructionsNo instructions recorded. Reason for Referral None Reported. Results Created Date Observation Date Name Description Value Unit Range Abnormal Flag Note LastModifiedBy Organization Detail LastModifiedTime 10/23/1910/22/2022 URINE CULTU RE specimen description URINE Not Available [facility] (Centralized Electronic Ordering - All Locations) Patient Can Go To The Location Of Their Choice, [address] 10/25/2022 11:11:00 10/23/1910/22/2022 URINE CULTU RE special [...] Go To The Location Of Their Choice, [address] 10/25/2022 11:11:00 10/23/1910/25/2022 URINE CULTU RE report [...] Go To The Location Of Their Choice, [address] 10/25/2022 11:11:00 10/23/1910/25/2022 URINE CULTU RE tetracycline TETRAC YCLINE SUSCEP TIBLE susceptib le Not Available [facility] (Centralized Electronic Ordering - All Locations) Patient Can Go To The Location Of Their Choice, [address] 10/25/2022 11:11:00 Result Notes None recorded. Medical [...] [degF] 98 % 98 % 70 /min 56851.0 88 g 18 /min 146 mm[Hg] 76 [...] SNOMED-CT Code Diagnosis ICD10 Code Diagnosis Note 58302 Josh Buckley MD Main - [facility] [address] [place] [phone] 10/22/2022 10:52:47 10/23/2022 10:59:30 Dysuria 90225032 R30.0 Acute cystitis 99398841 N30.00 Health Concerns Section Related Observation LastModified by Organization Detai ls LastModified Time None Recorded Concern Status LastModified by Organization Details LastModified Time None Recorded Advance Directives Directive None Recorded Payers Encounter Date Sequence Insurance Name Policy Number Policy Vasquez Covered Member ID Vasquez Member ID Guarantor Name 10/22/2022 1 [facility] - DOS ON OR AFTER 2022 - DUAL ELIGIBLE - [employer]PC OPTIONS AND ONE CARE (MEDICARE REPLACEMENT/ADV ANTAGE - HMO) Pina langley [id number] Pina ordoñez Notes Date Note Type Note [...] visit tomorrow 10/22. Josh Buckley MD [address] [facility], [place], [address], [place] - [employer] RUBALCAVA 10/25/2022 15:04:26 OBGyn Episode No OBEpisode recorded.
--- OUTSIDE RECORDS SUMMARY | 2024-08-11 15:53 | XMS_ITS ---
Author Organization [facility] Address [address] [place] [address] Care Team Providers Care Casting Associate Name Role Phone Vicky Whitman Primary Care Provider Ephraim Mercado Unavailable [phone] Allergies Allergen (clinical drug ingredient) Drug/Non Drug [...] Ordered Date Performed Result Body Sit e 35882-LZPMIOX NAIL, 6 OR MORE 02/02/2024 N/A 87681-DGSX SKIN LESIONS, OVER 4 02/02/2024 N/A Encounters Encounter Location Date Provider Diagnosis [facility] [address] [address] 02/02/2024 Ephraim Fuentes Type 2 diabetes mellitus with diabetic polyneuropathy E11.42 and Tinea unguium B35.1 Assessments Encounter Date Diagnosis (ICD Code) Assessment Notes Treatment Notes Treatment Clinical Notes Section Notes 02/02/2024 Type 2 diabetes mellitus with diabetic polyneuropathy (ICD-10 - E11.42) 02/02/2024 Tinea unguium (ICD-10 - B35.1) Plan Of Treatment Pending Test Test Name Order Date 36177-CPZUDKA NAIL, 6 OR MORE 02/02/2024 91313-RYKG SKIN LESIONS, OVER 4 02/02/20 24 Next Appt Details Follow Up: 2 Months, Reason: Provider Name:Ephraim Fuentes , 08/16/2024 01:30:00 PM, [address] [place] [address], [phone], Procedure Notes * Category Sub-Category Detail Notes [...] use of a nail nipper and/or dremel-type diamond grinder, to a more viable healthy nail [...] to maintain effectiveness in symptomatic relief - 66175 Keratoma Treatment Parring or Cutting o f [...] instrumentation by the physician of record - 68058 Progress Notes * Pina MATHISDOB:10/1954 (69 yo F)Acc No.[id number]:02/02/2024 Progress Note Patient:?Alvaro MATHIS Provider:?Ephraim Fuentes DPM :1955???Age:68 Y???Sex:Female D ate:02/02/2024 Address:[facility] [address], [id number] Pcp:Vicky Whitman Subjective: * Chief Complaints: * [...] use of a nail nipper and/or dremel-type diamond grinder, to a more viable healthy nail [...] to maintain effectiveness in symptomatic relief - 06300.?Keratoma Treatment:?Parring or Cutting of Benign Hyperkeratotic Lesion(s)?(-57) [...] instrumentation by the physician of record - 97465.? * Procedure Codes:?75131 DEBRI DE NAIL, 6 OR MORE, Modifiers: XS 51406 TRIM SKIN LESIONS, OVER 4, Modifiers: XS * Preventive Medicine:? ??Counseling:?Tobacco use:?Patient counseled on the dangers of smoking and urged to quit:?02/02/2024 * Follow Up:?2 Months * Images: * Sign off status: Completed true * Provider:?Ephraim Fuentes DPM Date:?2023 Generated for Sirisha pressley/Jasmeet/Ankita on:?08/11/2024 03:52 PM EDT History and Physical Notes * [...]
--- OUTSIDE RECORDS SUMMARY | 2024-08-11 15:53 | XMS_ITS ---
Author Organization [facility] Address [address] [place] [address] Care Team Providers Care Tobacco Packer Name Role Phone Vicky Whitman Primary Care Provider Ephraim Mercado Unavailable [phone] Encounters Encounter Location Date Provider Diagnosis [address] [address] 05/06/2024 Ephraim Fuentes Plan Of Treatment Next Appt Details Provider Name:Ephraim Fuentes , 08/16/2024 01:30:00 PM, [address] [place] [address], [phone], Progress Notes * Pina MATHISDOB:10/1954 (69 yo F)Acc No.[id number]:05/06/2024 Progress Note Patient:?PABLOCLINTONAlvaro MEHTA Provider:?Ephraim Fuentes DPM :1955???Age:69 Y???Sex:Female D ate:05/06/2024 Address:[address] [place] [address] [address], [id number] Pcp:Vicky Whitman Subjective: * Chief Complaints: * ??? * Medical History:? Objective: * Vitals:? Assessment: Plan: * Treatment: * Images: * The named appointment provid er may or may not be the originator of this progress note, and it is not deemed complete until electronically signed by the appointment provider. Sign off status: Pending * Provider:Thea Fuentes DPM Date:?2023 Generated for Sirisha pressley/Jasmeet/Ankita on:?08/11/2024 03:52 PM EDT
--- OUTSIDE RECORDS SUMMARY | 2024-08-11 15:53 | XMS_ITS ---
Author Organization [facility] Address [address] [place] [address] Care Team Providers Care Exhibits Curator Name Role Phone Vicky Whitman Primary Care Provider Ephraim Mercado [phone] REASON FOR VISIT cx appt 05/06/24 Encounters Encounter Location Date Provider Diagnosis [address] [address] 05/04/2024 Ephraim Fuentes Plan Of Treatment Next Appt Details Provider Name:Ephraim Fuentes , 08/16/2024 01:30:00 PM, [address] [place] [address], [phone], Progress Notes * Pina MATHISDOB:10/1954 (69 yo F)Acc No.[id number]:05/04/2024 Patient:?Alvaro MATHIS :1955???Age:69 Y???Sex:Female Address:[address] [place] [address] [address], [place], [address] * true * Date:? Generated for Printi ng/Fajackelineg/eTransmitting on:?08/11/2024 03:52 PM EDT
--- OUTSIDE RECORDS SUMMARY | 2024-08-11 15:53 | XMS_ITS | Patient Health Record ---
Author Organization [facility] Address [address] [place] [address] Care Team Providers Care Service Tech Name Role Phone Po Vicky BROCK Primary Care Provider Ras Rios [phone] Allergies Allergen (clinical drug ingredient) Drug/Non Drug [...] Problem Status W/U Status Risk Notes Problem 726802643 Encounter for screening for malignant neoplasm of colon (Z12.11) Active confirmed Problem 309058039650403 Preprocedural examination (Z01.818) Active confirmed Problem 676763953 Irregular bowel habits (R19.8) Active confirmed Problem Diverticulosis of colon (655799281) Diverticulosis of colon (K57.30) Active confirmed Problem [id number] History of Clostridioides difficile infection (Z86.19) Active confirmed Plan Of Treatment Future Test Test Name Order Date COLONOSCOPY 06/08/2019 COLONOSCOPY 08/07/2021 Insurance Providers Payer Name Payer Address Payer Phone Subscriber Number Group Number Insured Name Patient Relationship to Insured Coverage Start Date Coverage End Date [facility] [address] [place] [address] [id number] MARCELINA GEIGER Self - patient is the insured Medical (General) History Medical History History ICD Code Denies CVA,renal disease COPD [place]--s/p stent placement in 2015 Hypertension Glaucoma Neg [...]
== END 2024-08-11 13:26 | disposition home or self-care (01) ==
LOC: HO.HCS 12:52
PROVIDERS: PCP Internal Medicine; Visit Provider Internal Medicine Cardiovascular Disease
DX: I25.10 Atherosclerotic heart disease of native coronary artery without angina pectoris (principal); I10 Essential (primary) hypertension; Z01.810 Encounter for preprocedural cardiovascular examination
CPT/HCPCS: 93010; 99214; G2211

== ENCOUNTER → 2024-08-11 12:51 | Outpatient (BNVA) | payer OTHER, SELFPAY | PROVIDERS: PCP Internal Medicine; Visit Provider Internal Medicine Cardiovascular Disease | DX: Z01.810 Encounter for preprocedural cardiovascular examination (principal); I25.10 Atherosclerotic heart disease of native coronary artery without angina pectoris; I10 Essential (primary) hypertension | CPT/HCPCS: 93005; 99212 ==

== ENCOUNTER 2024-08-19 14:35 | Outpatient (AMB) | payer OTHER, SELFPAY ==
--- NOTE | 2024-08-19 14:46 | MHC.PC.OV ---
Vital Signs 08/19/24 14:49 Height 5 ft 1 in Weight 162 lb 2 oz BMI 30.6 BP 112/60 Blood Pressure Location Lt brachial Position Sitting Pulse 69 Pulse Source Pulse Oximeter Temp 97.8 F Temp Source Temporal Artery Scan Pulse Oximetry (%) 97 Oxygen Delivery Method Room Air Intake Visit Reasons: [facility] 09/07 glaucoma surgery Intake Note: Patient is here for a Pre-op for Glaucoma surgery left eye scheduled with [facility] on 09/07/24. Photovoltaic Technician Required: No Certified Optician: Not Required per policy Accompanied by: Self / Same As Patient Allergies LATEX Allergy (Intermediate, Verified 08/19/24 14:48) rash MOLD Allergy (Intermediate, Verified 08/19/24 14:48) rash NONORGANIC FOOD Allergy (Intermediate, Verified 08/19/24 14:48) diarrhea Yeast Allergy (Intermediate, Verified 08/19/24 14:48) Diarrhea empagliflozin [From Jardiance] Adverse Reaction (Intermediate, Verified 08/19/24 14:48) Vaginal candidiasis Medication List - Last Reconciled 08/19/24 by Elysia Singh PA-C albuterol sulfate 90 mcg/actuation (Proventil HFA) 2 puffs inhalation Q6H PRN ammonium lactate 12% 1 appl topical BID aspirin (Adult Low Dose Aspirin) 81 mg PO DAILY atorvastatin 80 mg PO DAILY [BEDSIDE COMMODE As directed] betamethasone dipropionate 0.05% apply to hands twice daily Breo Ellipta 200-25 mcg/dose (fluticasone furoate-vilanterol) 1 ea PO DAILY NS cholecalciferol (vitamin D3) 25 mcg PO DAILY clonazepam 1 mg PO Q8H [commode As directed] [diabetic shoes As directed] estradiol 0.01%(0.1mg/gram) vaginally 3 times a week; pea sized amount to urethra 3 times a week 30 days ezetimibe (Zetia) 10 mg PO BEDTIME flash glucose scanning reader (FreeStyle Dany 2 [place]) As directed flash glucose sensor (FreeStyle Dany 2 Sensor kit) As directed fluticasone propionate 50 mcg/actuation 2 sprays intranasal DAILY gabapentin 100 mg PO BEDTIME [GRABBER TOOL As directed] hydrocortisone 2.5% (Proctosol HC) 1 appl OH BID-QID PRN incontinence pad, liner, disp 8 pads per day [id number] Contour Plus BC pad , Inco, Max, swo incontinence pad, liner, disp As directed [incontinent wipes As directed] lactulose 15 mL PO DAILY 90 days levothyroxine 100 mcg PO DAILY [LIFT RECLINER As directed] lisinopril 30 mg PO DAILY 90 days metformin 500 mg PO BID 30 days metoprolol succinate ER 25 mg PO DAILY mirabegron ER (Myrbetriq) 50 mg PO DAILY miscellaneous medical supply As directed nicotine (polacrilex) 2 mg buccal Q2H nitroglycerin 0.4 mg sublingual Q5M PRN 30 days nystatin (Nystop) 1 appl topical BID nystatin 2 mL PO TID 15 days oxycodone 5 mg PO BID 30 days [Pad bladder ultra As directed 8 times day ] sulfamethoxazole-trimethoprim 800-160 mg (Bactrim DS) 1 tab PO BID 7 days tafluprost (PF) 0.0015% (Zioptan (PF)) 1 drp ophthalmic (eye) QPM timolol maleate (PF) 0.5% 1 drp ophthalmic (eye) BID venlafaxine ER 75 mg PO BEDTIME [WIPES As directed] Tobacco use date assessed: 08/19/24 Fall risk assessment: No Falls in past year Last assessed Fall Risk: 08/19/24 Dental Screening Dental Screen Date: 08/19/24 Did you have a dental visit in the last 12 months?: Yes Did you have a dental problem in the last 6 months where you did not have access to dental care?: No Was dental information given to patient?: Patient has dentist [employer] 09/07 glaucoma surgery HPI Details 69-year-old female with past medical history of diabetes mellitus, coronary artery disease, hypercholesterolemia, COPD, GERD, hypothyroid and hypertension last seen 03/2024 coming in for preoperative exam. Patient has surgery with [facility] glaucoma surgery. Patient tells us today she started on Thursday with flu-like symptoms having intermittent cough worse at night without sputum production. Patient has not had any fevers. She does have a sick contact in the house and believes she also has seasonal allergies. [facility] Medical History Anxiety and depression Thrush, oral Allergic rhinitis Franky's disease Goiter diffuse Cataract Glaucoma Tobacco abuse Type 2 diabetes mellitus with hyperglycemia GERD (gastroesophageal reflux disease) Obesity (BMI 30-39.9) COPD (chronic obstructive pulmonary disease) Coronary artery disease Carpal tunnel syndrome Hypercholesterolemia Hypothyroid Hypertension Surgical History Hx of section History of tubal ligation Family History Father Myocardial infarct Maternal Grandmother Breast cancer Mother Pancreatic cancer Sister Bipolar 1 disorder Other Mental problem Social History Household Members: Family Housing: House Do you presently have visiting nurse or other home services: No Alcohol intake: current Alcohol intake frequency: holidays/special occasions only Patient Tobacco Use Status: Current everyday Tobacco user Tobacco use type: Cigarette Cigarette Packs Per Day: 0.5 Cigarettes Per Day: 4 Years Smoked: 4 cigarettes a day Packs Per Year: 0 Packs per year/per ci.00 e-Cigarette/Vaping Use: Currently Using Second Hand Smoke Exposure: Yes Advance Directives Date on File: 03/21/22 service: No Current occupational status: disabled Cognitive needs: No Hearing needs: No Vision needs: Yes Questionnaire PHQ-9 Over the last 2 weeks, how often have you been bothered by any of the following problems? 1. Little interest or pleasure in doing things: not at all 2. Feeling down, depressed, or hopeless: not at all 3. Trouble falling or staying asleep, or sleeping too much: not at all 4. Feeling tired or having little energy: not at all 5. Poor appetite or overeating: not at all 6. Feeling bad about yourself - or that you are a failure or have let yourself or your family down: not at all 7. Trouble concentrating on things, such as reading the newspaper or watching television: not at all 8. Moving or speaking so slowly that other people could have noticed. Or the opposite - being so fidgety or restless that you have been moving around a lot more than usual: not at all 9. Thoughts that you would be better off or of hurting yourself in some way: not at all Total score: 0 Depression Screening Interpretation: Negative Depression Screening Done: Yes Source: Developed by Drs. Ras Asif, Kim Jones, Dyllan Norris and colleagues, with an educational kosta from [employer]. Thrive Questionnaire Date Thrive assessed: 08/19/24 I am a: Patient What is your living situation today?: I have a steady place to live Within the past 12 months, did the food you bought not last and you didn't have the money to get more?: Never true Within the past 12 months, did you worry whether your food would run out before you got money to buy more?: Never true Do you have trouble paying for medicines?: No Do you have trouble getting transportation to medical appointments?: No Do you have trouble paying your heating and electricity bill?: No Do you have trouble taking care of your child, family member or friend?: No Do you have trouble with day-to-day activities such as bathing, preparing meals, shopping, managing finances, etc.?: No Are you currently unemployed and looking for a job?: No Are you interested in more education?: No Please select the resources that you would like help with: None Currently or been in a relationship where the following occur: No concerns reported THRIVE Score: 0 AUDIT C Alcohol Use Questionnaire (AUDIT-C) 1. How often do you have a drink containing alcohol?: Never Total Score: 0 RYLAN-7 AMB Questionnaire RYLAN-7 Date RYLAN - 7 assessed: 08/19/24 Feeling nervous, anxious, or on edge: 0 = Not at all Not being able to stop or control worryin = Not at all Worrying too much about different things: 0 = Not at all Trouble relaxin = Not at all Being so restless that it is hard to sit still: 0 = Not at all Becoming easily annoyed or irritable: 0 = Not at all Feeling afraid as if something awful might happen: 0 = Not at all Total RYLAN-7 score (0-4 normal; 5-9 mild; 10-14 moderate; 15-21 severe): 0 Source: Developed by Drs. Ras Asif, Dyllan Nunez and colleagues, with an educational kosta from [employer]. Review of Systems Const Denies body aches, Denies chills, Denies fever(s), Denies headache(s) and Denies poor appetite Eyes Reports no additional complaints ENT Denies dysphagia, Denies dizziness, Denies headache(s) and Denies odynophagia Card Denies chest pain, Denies irregular heart rhythm, Denies lightheadedness and Denies dyspnea Resp Denies cough and Denies dyspnea GI Denies abdominal pain, Denies constipation, Denies dysphagia, Denies diarrhea, Denies nausea, Denies odynophagia and Denies vomiting Reports no additional complaints Musc Reports no additional complaints and Denies abnormal gait Skin/Breast Reports system reviewed and no additional complaints, except as documented Neuro Denies abnormal gait, Denies dizziness and Denies headache(s) Psych Reports no additional complaints Physical exam (Primary Care) Vital Signs: Last Vital Signs Temp 97.8 F 08/19/24 14:49 Pulse 69 08/19/24 14:49 BP 112/60 08/19/24 14:49 Pulse Ox 97 08/19/24 14:49 Oxygen Delivery Method Room Air 08/19/24 14:49 BMI result Body Mass Index 30.6 Tobacco/Smoking Status: Tobacco use Status Tobacco use date assessed 08/19/24 08/19/24 14:51 Patient Tobacco Use Status Current everyday Tobacco 08/19/24 14:51 Tobacco use type Cigarette 08/19/24 14:51 e-Cigarette/Vaping Use Currently Using 08/19/24 14:51 PHQ-9: PHQ-9 Score PHQ-9: Total score 0 08/19/24 15:02 Depression Screening Interpretation: Negative Thrive Assessment: Date of Thrive Assessment Date Thrive assessed 08/19/24 08/19/24 14:51 Currently or been in a relationship where the following occur: No concerns reported Const General: cooperative, healthy appearing, comfortable and no acute distress Orientation/consciousness: patient oriented x3 HENMT Head: Yes normocephalic Ears: hearing grossly normal bilaterally General nose exam: Normal external nose present Eyes General: appearance normal, both eyes and all related structures Conjunctivae: conjunctivae normal Neck Neck: Yes full ROM and Yes no lymphadenopathy Resp Effort & Inspection: normal respiratory effort Auscultation: clear to auscultation bilaterally, no crackles, no rales, no rhonchi and no wheezes Cardio Rate: regular rate Rhythm: regular rhythm Skin General skin exam: no rashes or lesions noted Neuro General: patient oriented x3 Gait exam (Neuro): Normal gait present Extrem General: Yes normal to inspection, Yes full ROM and No edema Psych Affect: normal affect Attitude: cooperative Insight: Good insight present (Psych) Judgement: Good judgement present (Psych) Results AMB Hemoglobin A1c AMB Hemoglobin A1c 7.0 % Last Edit by SANAM Alicea on 08/19/24 15:03 Results Reviewed Results Reviewed: Laboratory Last Values Hgb A1c (Clinic) 7.0 % (4.0-6.0) H 08/19/24 14:55 Coding Level of Care Code Est Pt Level 3 (07837) Diagnoses Allergic rhinitis J30.9 Type 2 diabetes mellitus with hyperglycemia, without long-term current use of insulin E11.65 Diabetes mellitus director long term care insulin use: without director long term care use Pulmonary emphysema, unspecified emphysema type J43.9 COPD type: emphysema Emphysema type: unspecified Essential hypertension I10 Hypertension type: essential hypertension Bladder infection N30.90 Cough R05.9 Assessment & Plan Assessment & Plan (1) Allergic rhinitis: Comment: She has nasal congestion almost on a daily basis. Uses Flonase 2 spray in each nostril daily and it helps to keep the nose clear. Code(s): J30.9 - Allergic rhinitis, unspecified Category: Medical Plan: Koct-qgj-cvtzbrj antihistamine sent to the pharmacy advised to use Flonase daily. (2) Type 2 diabetes mellitus with hyperglycemia: Comment: Dr. Mujica and Dr. Zaldivar Code(s): E11.65 - Type 2 diabetes mellitus with hyperglycemia Category: Medical Qualifiers: Diabetes mellitus prison insulin use: without director long term care use Qualified Code(s): E11.65 - Type 2 diabetes mellitus with hyperglycemia Plan: Decrease the amount of carbohydrates such as pasta, bread, rice, and potatoes and limit the amount of sweets. Although fruits are generally healthy they should be eaten in moderation as they are still high in sugar. Hemoglobin A1c goal of less than 7%. A1c 7% in the office today. Discussed with patient at length possible treatments for diabetes patient would like to increase metformin to 1000 mg twice daily at this time for management. (3) COPD (chronic obstructive pulmonary disease): Comment: Chronic, mild to moderate COPD, and she also has moderate degree of restrictive disorder. Overall it is staying stable. Code(s): J44.9 - Chronic obstructive pulmonary disease, unspecified Category: Medical Qualifiers: COPD type: emphysema Emphysema type: unspecified Qualified Code(s): J43.9 - Emphysema, unspecified Plan: Continue to follow with tape sewing machine operator stable on current inhalers. (4) Hypertension: Code(s): I10 - Essential (primary) hypertension Category: Medical Qualifiers: Hypertension type: essential hypertension Qualified Code(s): I10 - Essential (primary) hypertension Plan: Continue on current blood pressure medication. Avoid salt intake and encourage healthy diet and regular exercise. (5) Bladder infection: Code(s): N30.90 - Cystitis, unspecified without hematuria Category: Medical Plan: Patient reportedly being treated for bladder infection by urology. I discussed with patient I can not give preoperative clearance until infection has cleared and antibiotics have been completed. (6) Cough: Code(s): R05.9 - Cough, unspecified Category: Medical Plan: Patient having intermittent cough worse at night. She reports the cough is nonproductive with out increased sputum production and has been afebrile. I did recommend viral testing today patient agrees to swab for COVID/flu/RSV. Advised to use wszf-hwy-sgycoeq blood pressure safe cough medicine. Advised to reach out if cough worsens or becomes productive. Plan This note was constructed using voice recognition software. While every effort has been made to ensure accuracy and toaster operator, still areas may have been included sometimes these areas may affect the content or meeting of the given symptoms. Total time spent caring for the patient today was twenty minutes. This includes time spent before the visit reviewing the chart, time spent during the visit, and time spent after the visit and documentation. Orders: Orders AMB Hemoglobin A1c Today E11.65 - Type 2 diabetes mellitus with hyperglycemia SARS-CoV2/FLU/RSV Today R09.89 - Other specified symptoms and signs involving the circulatory and respiratory systems Comprehensive Met. Panel Today Z00.00 - Encounter for general adult medical examination without abnormal findings Complete Blood Count Auto Diff Today Z00.00 - Encounter for general adult medical examination without abnormal findings Medications: New metformin 1,000 mg PO BID 90 days 180 tabs 0RF fexofenadine (Paulette Allergy) 180 mg PO DAILY 30 tabs 0RF Discontinued metformin Discontinued Reason: Patient no longer taking 500 mg PO BID 30 days 180 tabs 2RF E11.65 - Type 2 diabetes mellitus with hyperglycemia
[2024-08-19 14:49] VITALS: BP 112/60; PULSE 69; TEMP 36.6; O2SAT 97; BMI 30.6
--- OUTSIDE RECORDS SUMMARY | 2024-08-19 16:09 | XMS_ITS ---
Author Organization [facility] Address [address] [place] [address] Care Team Providers Care Air Filler Name Role Phone Vicky Whitman Primary Care Provider Ephraim Mercado Unavailable [phone] Encounters Encounter Location Date Provider Diagnosis [facility] [address] [place] [address] 05/06/2024 Ephraim Fuentes Plan Of Treatment Next Appt Details Provider Name:Ephraim Fuentes , 11/07/2024 02:45:00 PM, [address] [facility], [address] [facility], [place], [address], Progress Notes * Pina MATHISDOB:10/1954 (69 yo F)Acc No.[id number]:05/06/2024 Progress Note Patient:?PABLOCLINTONAlvaro MEHTA Provider:?Ephraim Fuentes DPM :1955???Age:69 Y???Sex:Female D ate:05/06/2024 Address:[address] [place] [address] [address], [id number] Pcp:Vicky Whitman Subjective: * Chief Complaints: * ??? * Medical History:? Objective: * Vitals:? Assessment: Plan: * Treatment: * Images: * The named appointment provid er may or may not be the originator of this progress note, and it is not deemed complete until electronically signed by the appointment provider. Sign off status: Pending * Provider:Thea Fuentes DPM Date:?2023 Generated for Sirisha pressley/Jasmeet/Ankita on:?08/19/2024 04:08 PM EDT
--- OUTSIDE RECORDS SUMMARY | 2024-08-19 16:09 | XMS_ITS ---
Author Organization [facility] Address [address] [place] [address] Care Team Providers Care Viner Operator Name Role Phone Vicky Whitman Primary Care Provider Ephraim Mercado [phone] REASON FOR VISIT SD Reschedule/Cancel Encounters Encounter Location Date Provider Diagnosis [facility] [address] [place] [address] 08/16/2024 Ephraim Fuentes Plan Of Treatment Next Appt Details Provider Name:Ephraim Fuentes , 11/07/2024 02:45:00 PM, [address] [facility], [facility] [address], [place], [address], Progress Notes * Pina MATHISDOB:10/1954 (69 yo F)Acc No.[id number]:08/16/2024 Patient:?Alvaro MATHIS :1955???Age:69 Y???Sex:Female Address:[address] [place] [address] [address], [place], [address] * true * Date:? Generated for Printi ng/Faxing/eTransmitting on:?08/19/2024 04:08 PM EDT
--- OUTSIDE RECORDS SUMMARY | 2024-08-19 16:09 | XMS_ITS | Data Portability ---
Author Organization [facility] [place] - [facility] Address [address] [place] [address] Care Team Providers Care Filenet Developer Name Role Phone [facility] Referring Provider [phone] Assessment Encounter Date Assessment Date Assessment LastModified by Organization Details LastModified Time 10/22/2022 10/22/2022 I have reviewed and agree with the assessment and plan as documented by the clinical laboratory aide. I provided real-time medical direction for this [...] is intermediate for macrobid. Will send bactrim. [email or web address] Not available 10/25/2022 15:03:49 Plan of Treatment Reminders Order Date Submit Date Provider Last Modified By Organization Details Last Modified Time Details Appointments None recorded. Lab culture, urine 2022 023 LAURENCE [facility] (Centralized Electronic Ordering - All Locations), Patient Can Go To The Location Of Their Choice, [address] 11:11:00 [facility]inalysis , [facility] [address] [facility], [place], [address] 15:49:26 Referral None recorded. Procedures None recorded. Surgeries None recorded. Imaging None recorded. Medication Orders Macrobid 100 mg capsule 2022 023 LAURENCE [id number], [address] [place], [place], [id number], 10:59:20 Bactrim DS 800 mg-160 mg tablet 2022 023 [id number], [address], [place], [id number], 15:04:26 Patient TargetsNo targets recorded. Patient InstructionsNo instructions recorded. Reason for Referral None Reported. Results Created Date Observation Date Name Description Value Unit Range Abnormal Flag Note LastModifiedBy Organization Detail LastModifiedTime 10/23/1910/22/2022 URINE CULTU RE specimen description URINE Not Available [facility] (Centralized Electronic Ordering - All Locations) Patient Can Go To The Location Of Their Choice, 10/25/2022 11:11:00 10/23/1910/22/2022 URINE CULTU RE special [...] Choice, 10/25/2022 11:11:00 10/23/1910/25/2022 URINE CULTU RE report [...] Their Choice, 10/25/2022 11:11:10/23/1910/25/2022 URINE CULTU RE method METHOD MIN. INHIB. CONC. (MCG/M L) Not Available [facility] (Centralized Electronic Ordering - All Locations) Patient Can Go To The Location Of Their Choice, 10/25/2022 11:11:10/23/1910/25/2022 URINE CULTU RE ampicillin AMPICI LLIN RESIST ANT resistant Not Available [facility] (Centralized Electronic Ordering - All Locations) Patient Can Go To The Location Of Their Choice, 10/25/2022 11:11:10/23/1910/25/2022 URINE CULTU RE ampicillin/s ulbactam AMPICI LLIN/S ULBACT AM SUSCEP TIBLE susceptib le Not Available [facility] (Centralized Electronic Ordering - All Locations) Patient Can Go To The Location Of Their Choice, 10/25/2022 11:11:00 10/23/1910/25/2022 URINE CULTU RE amoxicillin/ clavulanic acid AMOXIC [...] Choice, 10/25/2022 11:11:00 10/23/1910/25/2022 URINE CULTU RE cefepime CEFEPI ME SUSCEP TIBLE susceptib le Not Available [facility] (Centralized Electronic Ordering - All Locations) Patient Can Go To The Location Of Their Choice, 10/25/2022 11:11:00 10/23/1910/25/2022 URINE CULTU RE ceftriaxone CEFTRI AXONE SUSCEP [...] CULTU RE nitrofuranto in NITROF URANTO IN [facility] EDIATE intermedi ate Not Available [facility] (Centralized [...] Go To The Location Of Their Choice, [address] 10/25/2022 11:11:00 10/23/19 23 10/25/2022 URINE CULTU RE tetracycline TETRAC YCLINE SUSCEP TIBLE susceptib le Not Available [facility] (Centralized Electronic Ordering - All Locations) Patient Can Go To The Location Of Their Choice, [address] 10/25/2022 11:11:00 Result Notes None recorded. Medical [...] [degF] 98 % 98 % 70 /min 10374.0 88 g 18 /min 146 mm[Hg] 76 [...] SNOMED-CT Code Diagnosis ICD10 Code Diagnosis Note 57317 Josh Buckley MD Main - instED [address] [place] [address] 10/22/2022 10:52:47 10/23/2022 10:59:30 Dysuria 82502043 R30.0 Acute cystitis 72157733 N30.00 Health Concerns Section Related Observation LastModified [...] OR AFTER 2022 - DUAL ELIGIBLE - [employer] OPTIONS AND ONE CARE (MEDICARE REPLACEMENT/ADV ANTAGE - HMO) Pina langley [id number] Pina ordoñez Notes Date Note Type Note [...] visit tomorrow 10/22. Josh Buckley MD [address] [facility], [place], [address], [place] - [place] [facility] [place] 10/25/2022 15:04:26 OBGyn Episode No OBEpisode recorded.
--- OUTSIDE RECORDS SUMMARY | 2024-08-19 16:09 | XMS_ITS | Patient Health Record ---
Author Organization [facility] Address [address] [place] [address] Care Team Providers Care Laundry Tub Maker Name Role Phone Po Vicky BROCK Primary Care Provider Ras Rios [phone] Allergies Allergen (clinical drug ingredient) Drug/Non Drug [...] Problem Status W/U Status Risk Notes Problem 311553020 Encounter for screening for malignant neoplasm of colon (Z12.11) Active confirmed Problem 900992998771948 Preprocedural examination (Z01.818) Active confirmed Problem 087177986 Irregular bowel habits (R19.8) Active confirmed Problem Diverticulosis of colon (600923748) Diverticulosis of colon (K57.30) Active confirmed Problem 277338892426578 History of Clostridioides difficile infection (Z86.19) Active confirmed Plan Of Treatment Future Test Test Name Order Date COLONOSCOPY 06/08/2019 COLONOSCOPY 08/07/2021 Insurance Providers Payer Name Payer Address Payer Phone Subscriber Number Group Number Insured Name Patient Relationship to Insured Coverage Start Date Coverage End Date [facility] [address] [place] [address] [id number] MARCELINA GEIGER Self - patient is the [...]
--- OUTSIDE RECORDS SUMMARY | 2024-08-19 16:09 | XMS_ITS | Patient Health Record ---
Author Organization [facility] Address [address] [facility] [place] [address] Care Team Providers Care Oil Transport Driver Name Role Phone Vicky Whitman Primary Care Provider Ephraim Mercado Unavailable [phone] Allergies Allergen (clinical drug ingredient) Drug/Non Drug [...] Problem Acquired hammer toe of right foot (3536498088729184 ) Other hammer toe(s) (acquired), right foot (M20.41) Active confirmed Response to treatment, Improvemen t Problem Acquired hammer toe of left foot (4726734618123643 ) Other hammer toe(s) (acquired), left foot (M20.42) Active confirmed Response to treatment, Improvemen t Problem Polyneuropathy due to type 2 diabetes mellitus (702267584) Type 2 diabetes mellitus with diabetic polyneuropathy (E11.42) Active confirmed Vital Signs Height 5ft in 02/02/2024 Weight 167 lbs 02/02/2024 BMI 32.61 kg/m2 02/02/2024 Procedures Procedure Date Ordered Date Performed Result Body Sit e 08498-MROKSGL NAIL, 6 OR MORE 11/23/2023 N/A 36003-VGEO SKIN LESIONS, OVER 4 11/23/2023 N/A 31630-BSNRLUL NAIL, 6 OR MORE 02/02/2024 N/A 43550-XXQQ SKIN LESIONS, OVER 4 02/02/2024 N/A Encounters Encounter Location Date Provider Diagnosis [facility] [address] [facility] [address] [place] [address] 11/23/2023 Ephraimbarrett Jacobsier Type 2 diabetes mellitus with diabetic polyneuropathy E11.42 ; Tinea unguium B35.1 ; Other hammer toe(s) (acquired), right foot M20.41 and Other hammer toe(s) (acquired), left foot M20.[address] [address] 02/02/2024 Ephraim Fuentes Type 2 diabetes mellitus with diabetic polyneuropathy E11.42 and Tinea unguium B35.[address] [address] 05/04/2024 Ephraim Fuentes [address] [address] 08/16/2024 Ephraim Fuentes Assessments Encounter Date Diagnosis (ICD [...] Treatment Pending Test Test Name Order Date 58886-XZQYVXX NAIL, 6 OR MORE 09/11/2020 24934-ZIMMJWC NAIL, 6 OR MORE 12/25/2020 98529-GAFCYDR NAIL, 6 OR MORE 07/31/2021 93460-XUWFVUL NAIL, 6 OR MORE 11/20/2021 99209-VURBIPC NAIL, 6 OR MORE 01/31/2022 68985-BKIPYXZ NAIL, 6 OR MORE 04/25/2022 26695-LARMKOA NAIL, 6 OR MORE 08/29/2022 67642-ADHFXUO NAIL, 6 OR MORE 11/14/2022 84544-RNLAIIL NAIL, 6 OR MORE 03/24/2023 52549-OVOZCWM NAIL, 6 OR MORE 11/23/2023 43492-GHLNANC NAIL, 6 OR MORE 02/02/2024 36509-ZQSN SKIN LESIONS, OVER 4 02/02/20 24 59408-DSPH SKIN LESIONS, OVER 4 11/23/19 24 50582-RNCN SKIN LESIONS, OVER 4 03/24/20 23 36812-RIZO SKIN LESIONS, OVER 4 11/15/19 23 16633-GNSO SKIN LESIONS, OVER 4 08/30/19 23 80033-LDBG SKIN LESIONS, OVER 4 04/25/20 22 70854-GPCI SKIN LESIONS, OVER 4 02/01/20 22 93256-EYSN SKIN LESIONS, OVER 4 11/21/19 22 32901-GORM SKIN LESIONS, OVER 4 08/01/19 22 68985-YVXG SKIN LESIONS, 2 TO 4 12/26/19 21 Next Appt Details Provider Name:Ephraim Fuentes , 11/07/2024 02:45:00 PM, [address] [facility], [address], [place], [address], Insurance Providers Payer Name Payer Address Payer Phone Subscriber Number Group Number Insured Name Patient Relationship to Insured Coverage Start Date Coverage End Date [facility] [employer] Claims [address] [place] [id number] Pina Gaytan Self - patient is the insured Medical (General) History Medical History History ICD Code Angina Anxiety Arthritis Back,Hip,and Knee pain CAD (Cholesterol) Cataracts Depression Diabetic border line Glaucoma Heart disease High blood pressure Chicken pox Measles Mumps thyroid UTI's Diabetes type ll Surgical History Surgery Date(Month/Year) 1988,1993 Stent/implant R eye 06/2015 cataract surgery Hospitalization History Reason Date(Month/Year) [facility] [place]th[place]ush mouth from breo ellipta-1 we ek given steroids 03/19/2022
--- OUTSIDE RECORDS SUMMARY | 2024-08-19 16:09 | XMS_ITS ---
Author Organization [facility] Address [address] [place] [address] Care Team Providers Care Bag Bailer Name Role Phone Vicky Whitman Primary Care Provider Ephraim Mercado Unavailable [phone] Encounters Encounter Location Date Provider Diagnosis [facility] [address] [place] [address] 08/16/2024 Ephraim Fuentes Plan Of Treatment Next Appt Details Provider Name:Ephraim Fuentes , 11/07/2024 02:45:00 PM, [address] [facility], [address] [facility], [place], [address], Progress Notes * Pina MATHISDOB:10/1954 (69 yo F)Acc No.[id number]:08/16/2024 Progress Note Patient:?PABLOCLINTONAlvaro MEHTA Provider:?Ephraim Fuentes DPM :1955???Age:69 Y???Sex:Female D ate:08/16/2024 Address:[address] [place] [address] [address], [place] Pcp:Vicky Whitman Subjective: * Chief Complaints: * ??? * Medical History:? Objective: * Vitals:? Assessment: Plan: * Treatment: * Images: * The named appointment provid er may or may not be the originator of this progress note, and it is not deemed complete until electronically signed by the appointment provider. Sign off status: Pending * Provider:Thea Fuentes DPM Date:?2024 Generated for Sirisha pressley/Jasmeet/Ankita on:?08/19/2024 04:09 PM EDT
== END 2024-08-19 15:44 | disposition home or self-care (01) ==
PROVIDERS: PCP Internal Medicine
DX: J30.9 Allergic rhinitis, unspecified (principal); E11.65 Type 2 diabetes mellitus with hyperglycemia; J43.9 Emphysema, unspecified; I10 Essential (primary) hypertension; N30.90 Cystitis, unspecified without hematuria; R05.9 Cough, unspecified

== ENCOUNTER → 2024-08-19 14:35 | Outpatient (BNVA) | payer OTHER, SELFPAY | PROVIDERS: PCP Internal Medicine | DX: J30.9 Allergic rhinitis, unspecified (principal); E11.65 Type 2 diabetes mellitus with hyperglycemia; J43.9 Emphysema, unspecified; I10 Essential (primary) hypertension; R05.9 Cough, unspecified; N30.90 Cystitis, unspecified without hematuria | CPT/HCPCS: 83036; 99212 ==

== ENCOUNTER 2024-08-26 14:17 | Outpatient (REF) | payer OTHER, SELFPAY ==
--- OUTSIDE RECORDS SUMMARY | 2024-08-26 14:38 | XMS_ITS ---
Author Organization [facility] Address [address] [facility] [place] [address] Care Team Providers Care Labor And Employment Paralegal Name Role Phone Vicky Whitman Primary Care Provider Ephraim Mercado Unavailable [phone] Allergies Allergen (clinical drug ingredient) Drug/Non Drug Allergy documented on EMR Reaction Allergy Type Onset Date Status Latex Latex Unknown Allergy Active Mold Unknown Allergy Active REASON FOR VISIT At Risk Footcare, Toe Irritation Medications Medication SIG (Take, Route, Frequency, Duration) Notes Start Date End Date Status Breo Ellipta 200-25 MCG/INH 1 puff Inhalation Once a day Active Ammonium Lactate 12 % 1 application to affected area Externally to feet Twice a day for 30 days Active Proventil HFA Not-Ta wendy oxyBUTYnin Not-Takin g Gabapentin Not-Takin g Zioptan 0.0015 % 1 drop into affected eye in the evening Ophthalmic Once a day Active Vitamin D3 Active Timolol Maleate 0.5 % 1 drop into affect ed eye Ophthalmic Once a day Active Salicylic Acid 3 % 1 application Externally Twice a day Active Nitroglycerin Active Lactulose 10 GM 1 packet Orally Once a day for 30 day(s) Active Extra Depth Orthopedic Shoes (1 Pair) with Customized Heat Molded Multidensity Innersoles (3 Pair) as directed Dx: NIDDM/Polyneuropathy (E11.42), Hammertoe Foot Deformity (M20.41,M20.42), Preulcerative Skin Lesion(s) (L85.1 Active Metoprolol Succinate 25 MG 1 capsule Orally Once a day for 30 day(s) Active metFORMIN HCl Active Lisinopril Active Levothyroxine Sodium 100 MCG 1 tablet in the morning on an empty stomach Orally Once a day Active Hydrocortisone Activ e Fluocinonide Active Ezetimibe 10 MG 1 tablet Orally Once a day for 30 day(s) Active Estradiol Active Betamethasone Active Atorvastatin Calcium 80 MG 1 tablet Orally Once a day for 30 day(s) Active Aspirin 81 Active Myrbetriq 50 MG 1 tablet Orally Once a day Active Social History Tobacco Use: Social History Observation Description Date Details (start date - stop date) Current Smoker 08/20/1967 - NA Tobacco use other than smoking: Question Answer Notes Are you an other tobacco user? No Tobacco Control (Standard) Question Answer Notes Tobacco use: Current smoker When did you start smoking? 08/20/1967 How often do you smoke cigarettes? Every day How many cigarettes a day do you smoke? 5 or les s How soon after you wake up d o you smoke your first cigarette? 6-30 minutes Are you interested in quitting? Ready to quit Additional Findings: Tobacco user Trivia l cigarette smoker (less than 1 cig/day) Vital Signs Height 5ft in 08/26/2024 Weight 162 lbs 08/26/2024 BMI 31.64 kg/m2 08/26/2024 Blood pressure systolic 133 mm Hg 08/27/19 25 Blood pressure diastolic 81 mm Hg 025 Procedures Procedure Date Ordered Date Performed Result Body Sit e 27085-VFIVSCY NAIL, 6 OR MORE 08/26/2024 N/A 42536-BBQI SKIN LESIONS, OVER 4 08/26/2024 N/A Encounters Encounter Location Date Provider Diagnosis [facility] [address] [address] 08/26/2024 Ephraim Fuentes Type 2 diabetes mellitus with diabetic polyneuropathy E11.42 ; Tinea unguium B35.1 ; Other hammer toe(s) (acquired), right foot M20.41 and Other hammer toe(s) (acquired), left foot M20.42 Assessments Encounter Date Diagnosis (ICD Code) Assessment Notes Treatment Notes Treatment Clinical Notes Section Notes 08/26/2024 Type 2 diabetes mellitus with diabetic polyneuropathy (ICD-10 - E11.42) 08/26/2024 Tinea unguium (ICD-10 - B35.1) 08/26/2024 Other hammer toe(s) (acquired), right foot (ICD-10 - M20.41) Patient Educated with: DIABETIC FOOT CARE INSTRUCTIONS. pdf (DIABETIC FOOT CARE INSTRUCTIONS. pdf) 08/26/2024 Other hammer toe(s) (acquired), left foot (ICD-10 - M20.42) Plan Of Treatment Medication Medication Name Sig Start Date Stop Date Notes Extra Depth Orthopedic Shoes (1 Pair) with Customized Heat Molded Multidensity Innersoles (3 Pair) as directed Dx: NIDDM/Polyneuropathy (E11.42), Hammertoe Foot Deformity (M20.41,M20.42), Preulcerative Skin Lesion(s) (L85.1 Treatment Notes Assessment Notes Other hammer toe(s) (acquired), right fo ot Patient Educated with: DIABETIC FOOT CARE INSTRUCTIONS.pdf (DIABETIC FOOT CARE INSTRUCTIONS.pdf) Pending Test Test Name Order Date 53025-CFBNHEV NAIL, 6 OR MORE 08/26/2024 44584-OWZN SKIN LESIONS, OVER 4 08/27/19 25 Next Appt Details Follow Up: 2 Months, Reason: Provider Name:Ephraim Fuentes , 12/06/2024 01:45:00 PM, [address] [place] [address], [phone], Procedure Notes * Category Sub-Category Detail Notes [...] T3, T4, T5, T6, T7, T8, T9 ), was performed exclusively by the physician of record to reduce/remove overall nail length, girth, thickness, subungual debris, and necrotic tissue, by manual and/or electrical means through the use of a nail nipper and/or dremel-type gear and spline grinder, to a more viable healthy nail [...] to maintain effectiveness in symptomatic relief - 72209 Keratoma Treatment Parring or Cutting o f Benign Hyperkeratotic Lesion(s) (-57) More than 4 Lesions - Due to the at risk nature of the patients medical condition as documented in the exam findings, performance of this keratoderma treatment is medically necessary as its management by an unskilled/untrained nonprofessional would put this patients foot and overall health at risk. Therefore, the benign hyperkeratotic lesions, (8) in total, locations as stated and described in the exam ( Plantar, IPJ, TA, Plantar, IPJ, T5, SUB MTH (s), 1, B/L , SUB MTH (s), 5, B/L ,Plantar, Heel(s), B/L ), were pared, and/or cut utilizing a sterile 15 blade, tissue nippers, and/or power dremel instrumentation by the physician of record - 45494 Progress Notes * Pina MATHISDOB:10/1954 (69 yo F)Acc No.[id number]:08/26/2024 Progress Note Patient:?Alvaro MATHIS Provider:?Ephraim Fuentes DPM :1955???Age:69 Y???Sex:Female D ate:08/26/2024 Address:[address] [place], [place] [address] Pcp:Vicky Whitman Subjective: * Chief Complaints: * ???At Risk FootcareToe Irrit ation * HPI: ???At Risk footcare:?Pt States Last PCP Visit:?Date?08/09/2024 ???Toe pain:?Location:?B/L feet.?Duration:?several years.?Course:?worse.?Aggravated by:?shoes, any pressure.?Treatments:?change in shoes.? * ROS:?General/Constitutional:?Nausea?denies.?Vomiting?denies.?Hunger Thirst?denies.?Loss appetite?denies.?Chills?denies.?Fatigue?denies.?Fever?denies.?Night Sweats?denies.?Unexplained weight loss?denies.?Unexplained [...] Hospitalization/Major Diagno stic Procedure:?[facility] -thrush mouth from breo ellipta- 1 week given steroids 03/19/2022 * Family History:?Mother: dece ased.?Father: , heart attack.?Siblings: foot problems-sister, diagnosed with Diabetic - NIDDM, Unspecified essential hypertension, Family history of arthritis.? * Social History:?Tobacco Use:?Tobacco use other than smoking?Are you an other tobacco user??No ?Tobacco Control (Standard)?Tobacco use:?Current smoker ?When did you start smoking??08/20/1967 ?How often do you smoke cigarettes??Every day ?How many cigarettes a day do you smoke??5 or less ?How soon after you wake up do you smoke your first cigarette??6-30 minutes ?Are you interested in quitting??Ready to quit ?Additional Findings: Tobacco user?Trivial cigarette smoker (less than 1 cig/day) ???Miscellaneous:?Caffeine: yes, frequency:, 1 cups per day [...] Allergies:?LatexMoldyes[Jorge rgies Verified] Objective: * Vitals:?Ht: 5ft, Wt:162, BMI :31.64, Shoe size: 7, BP:133/81mm Hg, BS: 92, Ht-cm: 152.4 cm, Wt-k.48 kg. * ???Past Orders: ???Lab:HEMOGLOBIN A1C (GLYCO HEMOGLOBIN) (Order Date - 07/16/2024) (Collection Date & Time - 07/16/2024 12:34 PM) ? Value Reference Range ?HEMOGLOBIN A1C % (HH) 7.0 * Examination: ???Ophthalmology Referral: ?DIABETES EYE EXAM?Procedure Performed:?Yes ?Date of Exam Performed?05/02/2024 ?Diabetic Retinopathy Screening:?Yes ?Retinal Screening Performed:?Yes ?Findings of Diabetic Eye Exam:?no retinopathy?Neurological: ?SENSORY:? [...] SUB MTH (s), 5, B/L ,Plantar, Heel(s), B/L.?Orthopedic: ?MUSCLE STRENGTH:?5/5 all groups in a symmetrical fashion , B/L.?FOOT MORPHOLOGY:? Pes Planus structure, No Charcot collapse/destruction noted at [facility]J.?DIGITAL DEFORMITIES:?Digital contracture, PIPJ, 2-5 B/L, incompl-reducible with WB, or to push-up test, no over, nor underlapping , with evidence of shoe producing skin irritation.?FOOTWEAR EVALUATION:?fair condition, OT were inspected and noted to be worn , in fair condition but giving proper support at the present time.?Vascular: ?DP PULSES (B):? 2/4, B/L.?PT PULSES (B):? 2/4, B/L.?CAPILLARY FILL TIME:? 3 secs. per digit, B/L.?TROPHIC CONDITION-TEXTURE/ELASTICITY/TURGOR/HAIR GROWTH (B):?normal, B/L.?TEMPERTURE GRADIENT (C):?normal, warm to cool, proximal to distal, B/L, B/L.?PIGMENTATION:?normal, B/L.?EDEMA (C):?absent, B/L.?General Examination: ?GENERAL APPEARANCE:?Reveals a pleasant, alert, well nourished, well- developed, well hydrated individual, who demonstrates proper attention to hygiene/body habitus, and is in no acute distress, Pt serves as own historian for office visit today.?ORIENTED:?person, place, and time.?FOOT EXAM:?Lower Extremity Neurological Exam performed:?Yes ?Visual exam of foot performed:?Yes ?Date?08/26/2024 ?Footwear Evaluation?Footwear Evaluation performed:?Yes??? Assessment: * Assessment: 1.?Type 2 diabetes mellitus with diabetic polyneuropathy - E11.42 (Primary)???2.?Tinea unguium - B35.1???3.?Other hammer toe(s) (acquired), right foot - M20.41???Specify :Chronic problem, Worse (4),Rx Management (4)???4.?Other hammer toe(s) (acquired), left foot - M20.42???Specify :Chronic problem, Worse (4),Rx Management (4)??? Plan: * Treatment: 2.?Other hammer toe(s) (acqu ired), right foot? Start Extra Depth Orthopedic Shoes (1 Pair) with Customized Heat Molded Multidensity Innersoles (3 Pair), as directed, Dx: NIDDM/Polyneuropathy (E11.42), Hammertoe Foot Deformity (M20.41,M20.42), Preulcerative Skin Lesion(s) (L85.1, 1, Refills 0.?? Notes: Patient Educated with: DIABETIC FOOT CARE INSTRUCTIONS.pdf (DIABETIC FOOT CARE INSTRUCTIONS.pdf)?? * Procedures:?Debride Nail 6-10:?Nail debridement?Due to the clinical pathology outlined in the exam findings, performance of this nail treatment is medically necessary as its management by an unskilled/untrained nonprofessional would put this patients foot and overall health at risk. Therefore, debridement to affected nail(s), as described in exam (?TA, T1, T2, T3, T4, T5, T6, T7, T8, T9?), was performed exclusively by the physician of record to reduce/remove overall nail length, girth, thickness, subungual debris, and necrotic tissue, by manual and/or electrical means through the use of a nail nipper and/or dremel-type gear and spline grinder, to a more viable healthy nail [...] to maintain effectiveness in symptomatic relief - 34605.?Keratoma Treatment:?Parring or Cutting of Benign Hyperkeratotic Lesion(s)?(-57) More than 4 Lesions - Due to the at risk nature of the patients medical condition as documented in the exam findings, performance of this keratoderma treatment is medically necessary as its management by an unskilled/untrained nonprofessional would put this patients foot and overall health at risk. Therefore, the benign hyperkeratotic lesions, (8) in total, locations as stated and described in the exam (?Plantar,?IPJ,?TA,?Plantar,?IPJ,?T5,?SUB MTH (s),?1,?B/L?,?SUB MTH (s),?5,?B/L?,Plantar,?Heel(s),?B/L?), were pared, and/or cut utilizing a sterile 15 blade, tissue nippers, and/or power dremel instrumentation by the physician of record - 46635.? * Procedure Codes:?28302 DEBRI DE NAIL, 6 OR MORE, Modifiers: XS 63726 TRIM SKIN LESIONS, OVER 4, Modifiers: XS * Preventive Medicine:? ??Counseling:?Tobacco use:?Patient counseled on the dangers of smoking and urged to quit:?08/26/2024 ?Discussion:?-14: Office or other outpatient visit for the evaluation and management of an established patient, which required a medically appropriate history and/or examination and MODERATE level of DECISION MAKING for: 1 OR MORE CHRONIC PROBLEM(S) THATS WORSENING, 2 STABLE CHRONIC PROBLEMS, A NEWLY DIAGNOSED PROBLEM WITH UNCERTAIN PROGNOSIS, AN ACUTE COMPLICATED INJURY WITH MULTIPLE TREATMENT OPTIONS, OR AN ACUTE PROBLEM WITH ACCOMPANYING SYSTEMIC SYMPTOMS, THAT POSE(S) A MODERATE RISK OF MORBIDITY. THIS CONDITION MAY ALSO INCLUDE RX DRUG MANAGEMENT, OR A DECISON FOR MINOR SURGERY. The visit on the day of the encounter encompassed interpreting the data and educating the patient as to the nature of their condition, treatment options available according to their individual PMH, meds, allergies, and overall health/living conditions, as well as any potential risks or complications that may occur from a failure to adhere to, and participate in, the recommended course of therapy. The discussion included a complete verbal, and/or written explanation of the examination results, any x-rays taken, the proposed diagnosis, and outline of the treatment plan. A schedule for future care needs was also explained. The patient verbalized an understanding of the instructions at this time and agreed to be an active participant in their treatment. If the patient should think of any questions or concerns after the visit, I have encouraged the patient to call the office.?Diabetic Footcare:?The patient was advised against future self nail/callus care due to inherent risks for infection, loss of limb/life given diabetes, neuropathy.?Digital Surgery:?Digital surgery was discussed with the patient, We elected to try conservative treatment at the present time, due to the patients medical history and increased asssociated post-operative risks.?Digital Treatment:?HT- I explained to the patient the possible etiologies of Hammertoes, including genetics/foot type/shoegear/activity level/exercise routine and the risks/benefits of all the different treatment options for their pain including: No treatment at all, Rest, Ice, New/supportive/wider/deeper Shoegear, Digital Padding/Strapping/Taping/Bracing/Gel protective sleeves, Foot/Ankle AFO Bracing, Stretching exercises, Deep Tissue Massage, Arch support/shoe inserts with splay metatarsal padding, and Custom orthoses. I insisted that any digital devices be removed daily and not worn overnight for safety. The patient is to carefully examine the toes daily for any skin irritation while using any splinting or padding device. The advantages and disadvantages of each option were discussed and the patients questions re: shoegear, padding, custom vs prefabricated inserts, activity level, and consistency in home treatment regimens for optimal success were answered to their verbally confirmed satisfaction.?Shoe Gear Counseling:?SHOE Rx - The patient was counseled in great detail on their muscoloskeletal foot and toe deformities which coincided with the dermatological presentations visualized on exam. We discussed how their deformities put the integrity of their feet at risk for potential pedal complications which makes the accomidative diabetic shoes and cutomizable inserts medically necessary. We discussed the different shoe and insert treatment types and options, as well as the important advantages for adhering to regularly wearing these accomidative devices daily. The patient was made aware of the fact that a failure to abide by these recommedations may be deleterious to their foot health as they are able to prevent many pedal complications such as skin irritation, skin ulceration, infection, and even loss of toe/foot/leg/or life. Time was also spent with the patient dispensing and discussing proper diabetic footcare techniques including daily skin moisturization, daily foot inspection for any interruption in skin integrity including open lesions, or sign of infection such as redness/malodor/drainage/swelling. Also discussed and recommended were procedures regarding daily shoe inspection for the presence of internal foreign bodies as well as any visualized irregular shoe or insert wear. Patient questions re: shoes, inserts, and self foot inspections were answered to their satisfaction as the patient verbally confirmed a full understanding of the above information. A Rx for Extra Depth Orthopedic Shoes with 3 pair of custom heat-molded inserts was dispensed.? ??Screening/Special Tests:?Fall Risk?Screening:?No falls in the past year ?FALLS: Screening for Future Fall Risk?Have you had any falls with injury in the past year??No * Follow Up:?2 Months * Images: * Sign off status: Completed true * Provider:?Ephraim Fuentes DPM Date:?2024 Generated for Sirisha pressley/Jasmeet/Ankita on:?08/26/2024 02:38 PM EDT History and Physical Notes * HPI (History of Present Illness) Category Sub-Category Detail Notes Category Not es Toe pain Location: B/L feet Duration: several years Course: worse Aggravated by: shoes, any pressure Treatments: change in shoes At Risk footcare Pt States Last PCP Visit: Date: 5 Examination Category Sub-Category Detail Notes Category Not [...] cture, No Charcot collapse/destruction noted at [facility] FOOTWEAR EVALUATION: fair condition, OT were inspected and noted to [...] Visual exam of foot performed:: Yes Date: 08/26/2024 ORIENTED: person, place, and t nichole Footwear Evaluation Footwear Evaluation performe d:: Yes Ophthalmology Referral DIABETES EYE EXAM Procedure Perform ed:: Yes ?Date of Exam Performed: 05/02/2024 Diabetic Retinopathy Screening:: Yes Retinal Screening Performed:: Yes Findings of Diabetic Eye Exam:: no [...]
--- OUTSIDE RECORDS SUMMARY | 2024-08-26 14:38 | XMS_ITS ---
Author Organization [facility] Address [address] [place] [address] Care Team Providers Care Practical Nursing Instructor Name Role Phone Vicky Whitman Primary Care Provider Ephraim Mercado Unavailable [phone] Encounters Encounter Location Date Provider Diagnosis [address] [address] 08/16/2024 Ephraim Fuentes Plan Of Treatment Next Appt Details Provider Name:Ephraim Fuentes , 12/06/2024 01:45:00 PM, [address] [place] [address], [phone], Progress Notes * Pina MATHISDOB:10/1954 (69 yo F)Acc No.[id number]:08/16/2024 Progress Note Patient:?PABLOCLINTONAlvaro MEHTA Provider:?Ephraim Fuentes DPM :1955???Age:69 Y???Sex:Female D ate:08/16/2024 Address:[address] [place] [address] [address], [id number] Pcp:Vicky Whitman Subjective: * Chief Complaints: * [...]
--- OUTSIDE RECORDS SUMMARY | 2024-08-26 14:38 | XMS_ITS ---
Author Organization [facility] Address [address] [place] [address] Care Team Providers Care Gem Technician Name Role Phone Vicky Whitman Primary Care Provider Ephraim Mercado [phone] REASON FOR VISIT SD Reschedule/Cancel Encounters Encounter Location Date Provider Diagnosis [address] [address] 08/16/2024 Ephraim Fuentes Plan Of Treatment Next Appt Details Provider Name:Ephraim Fuentes , 12/06/2024 01:45:00 PM, [address] [place] [address], [phone], Progress Notes * Pina MATHISDOB:10/1954 (69 yo F)Acc No.[id number]:08/16/2024 Patient:?Alvaro MATHIS :1955???Age:69 Y???Sex:Female Address:[address] [place] [address] [address], [place], [address] * true * Date:? Generated for Printi ng/Faxing/eTransmitting on:?08/26/2024 02:37 PM EDT
--- OUTSIDE RECORDS SUMMARY | 2024-08-26 14:38 | XMS_ITS | Data Portability ---
Author Organization [facility] [place] [facility] - [facility] Address [address] [place] [address] Care Team Providers Care Clinical Research Tech Name Role Phone [facility] Referring Provider Assessment Encounter Date Assessment Date Assessment LastModified by Organization Details LastModified Time 10/22/2022 10/22/2022 I have reviewed and agree with the assessment and plan as documented by the powerplant operator. I provided real-time medical direction for this [...] is intermediate for macrobid. Will send bactrim. [email or web address] Not available 10/25/2022 15:03:49 Plan of Treatment Reminders Order Date Submit Date Provider Last Modified By Organization Details Last Modified Time Details Appointments None recorded. Lab culture, urine 2022 023 LAURENCE [facility] (Centralized Electronic Ordering - All Locations), Patient Can Go To The Location Of Their Choice, [address] 11:11:00 [facility]inal[facility] , [facility] [address] [facility], [place], [address] 15:49:26 Referral None recorded. Procedures None recorded. Surgeries None recorded. Imaging None recorded. Medication Orders Macrobid 100 mg capsule 2022 023 LAURENCE [id number], [address], [place], [id number], 10:59:20 Bactrim DS 800 mg-160 mg tablet 2022 023 [id number], [address], [place], [id number], 15:04:26 Patient TargetsNo targets recorded. Patient InstructionsNo [...] CULTU RE nitrofuranto in NITROF URANTO IN [facility] EDIATE intermedi ate Not Available [facility] [...] Go To The Location Of Their Choice, [address] 10/25/2022 11:11:00 10/23/19 23 10/25/2022 URINE CULTU RE tetracycline TETRAC YCLINE SUSCEP TIBLE susceptib le Not Available [facility] (Centralized Electronic Ordering - All Locations) Patient Can Go To The Location Of Their Choice, [address] 10/25/2022 11:11:00 Result Notes None recorded. Medical [...] [degF] 98 % 98 % 70 /min 35805.0 88 g 18 /min 146 mm[Hg] 76 [...] SNOMED-CT Code Diagnosis ICD10 Code Diagnosis Note [id number] Josh Buckley MD Main - [facility] [address] [place] [phone] 10/22/2022 10:52:47 10/23/2022 10:59:30 Dysuria 68648236 R30.0 Acute cystitis 65247164 N30.00 Health Concerns Section Related Observation LastModified by Organization Detai ls LastModified Time None Recorded Concern Status LastModified by Organization Details LastModified Time None Recorded Advance Directives Directive None Recorded Payers Encounter Date Sequence Insurance Name Policy Number Policy Vasquez Covered Member ID Vasquez Member ID Guarantor Name 10/22/2022 1 [facility] - DOS ON OR AFTER 2022 - DUAL ELIGIBLE - USP OPTIONS AND ONE CARE (MEDICARE REPLACEMENT/ADV ANTAGE - HMO) Pina langley [id number] Pina ordoñez Notes Date Note Type Note [...] Buckley MD [address] [facility], [place], [address], [place] [employer] 10/25/2022 15:04:26 OBGyn Episode No OBEpisode recorded.
--- OUTSIDE RECORDS SUMMARY | 2024-08-26 14:38 | XMS_ITS | Patient Health Record ---
[facility] Address [address] [place] [address] Care Team Providers Care Aircraft Time Clerk Name Role Phone Vicky Whitman Primary Care Provider Ephraim Mercado Unavailable [phone] Allergies Allergen (clinical drug ingredient) Drug/Non Drug Allergy documented on EMR Reaction Allergy Type Onset Date Status Latex Latex Unknown Allergy Active Mold Unknown Allergy Active Results Component Value Reference Range Notes HEMOGLOBIN A1C (GLYCOHEMOGLO BIN) Reviewed date:02/02/2024 01:38:55 PM Interpretation: Performing Lab: Notes/Report: HEMOGLOBIN A1C % (HH) 7.8 HEMOGLOBIN A1C (GLYCOHEMOGLO BIN) Reviewed date:08/26/2024 12:35:01 PM Interpretation: Performing Lab: Notes/Report: HEMOGLOBIN A1C % (HH) 7.0 Reason For Referral No Information Medications Medication SIG (Take, Route, Frequency, Duration) Notes Start Date End Date Status Fluocinonide Active Ezetimibe 10 MG 1 tablet Orally Once a day for 30 day(s) Active Vitamin D3 Active Estradiol Active Timolol Maleate 0.5 % 1 drop into affect ed eye Ophthalmic Once a day Active Betamethasone Active Salicylic Acid 3 % 1 application Externally Twice a day Active Atorvastatin Calcium 80 MG 1 tablet Orally Once a day for 30 day(s) Active Nitroglycerin Active Aspirin 81 Active Metoprolol Succinate 25 MG 1 capsule Orally Once a day for 30 day(s) Active Proventil HFA Not-Ta wendy Myrbetriq 50 MG 1 tablet Orally Once a day Active metFORMIN HCl Active oxyBUTYnin Not-Takin g Lisinopril Active Gabapentin Not-Takin g Lactulose 10 GM 1 packet Orally Once a day for 30 day(s) Active Breo Ellipta 200-25 MCG/INH 1 puff Inhalation Once a day Active Levothyroxine Sodium 100 MCG 1 tablet in the morning on an empty stomach Orally Once a day Active Extra Depth Orthopedic Shoes (1 Pair) with Customized Heat Molded Multidensity Innersoles (3 Pair) as directed Dx: NIDDM/Polyneuropathy (E11.42), Hammertoe Foot Deformity (M20.41,M20.42), Preulcerative Skin Lesion(s) (L85.1 Active Hydrocortisone Activ e Ammonium Lactate 12 % 1 application to affected area Externally to feet Twice a day for 30 days Active Zioptan 0.0015 % 1 drop into affected eye in the evening Ophthalmic Once a day Active Immunizations Vaccine Route Administration Date Status Comme nts COVID-19 Pfizer BioNTech Vaccine Unknown 10/25/2020 Administered 1st 10/04/2020 Influenza Unknown 02/19/2020 Administered Social History Tobacco Use: Social History Observation Description Date Details (start date - stop date) Current Smoker 08/20/1967 - NA Alcohol Screen Question Answer Notes Did you [...] l cigarette smoker (less than 1 cig/day) Problems Problem Type SNOMED Code ICD Code Onset Dates Problem Status W/U Status Risk Notes Problem Acquired hammer toe of right foot (3877194506149436 ) Other hammer toe(s) (acquired), right foot (M20.41) Active confirmed Response to treatment, Improvemen t Problem Acquired hammer toe of left foot (1179788433882909 ) Other hammer toe(s) (acquired), left foot (M20.42) Active confirmed Response to treatment, Improvemen t Problem Polyneuropathy due to type 2 diabetes mellitus (872340655) Type 2 diabetes mellitus with diabetic polyneuropathy (E11.42) Active confirmed Vital Signs Blood pressure diastolic 81 mm Hg 08/26/2024 Height 5ft in 08/26/2024 Blood pressure systolic 133 mm Hg 08/26/2024 Weight 162 lbs 08/26/2024 BMI 31.64 kg/m2 08/26/2024 Procedures Procedure Date Ordered Date Performed Result Body Sit e 72582-WJKGLTB NAIL, 6 OR MORE 11/23/2023 N/A 25022-MJJO SKIN LESIONS, OVER 4 11/23/2023 N/A 54521-FWQYGHI NAIL, 6 OR MORE 02/02/2024 N/A 66598-QKEW SKIN LESIONS, OVER 4 02/02/2024 N/A 37764-TTOHWWR NAIL, 6 OR MORE 08/26/2024 N/A 07843-OXNU SKIN LESIONS, OVER 4 08/26/2024 N/A Encounters Encounter Location Date Provider Diagnosis [facility] [address] [address] 11/23/2023 Ephraim Fuentes Type 2 diabetes mellitus with diabetic polyneuropathy E11.42 ; Tinea unguium B35.1 ; Other hammer toe(s) (acquired), right foot M20.41 and Other hammer toe(s) (acquired), left foot M20.[address] [address] 02/02/2024 Ephraim Fuentes Type 2 diabetes mellitus with diabetic polyneuropathy E11.42 and Tinea unguium B35.[address] [address] 08/26/2024 Ephraimbarrett Fuentes Type 2 diabetes mellitus with diabetic polyneuropathy E11.42 ; Tinea unguium B35.1 ; Other hammer toe(s) (acquired), right foot M20.41 and Other hammer toe(s) (acquired), left foot M20.[address] [address] 05/04/2024 Ephraim Fuentes [address] [address] 08/16/2024 Ephraim Fuentes Assessments Encounter Date Diagnosis (ICD Code) Assessment Notes Treatment Notes Treatment Clinical Notes Section Notes 11/23/2023 Type 2 diabetes mellitus with diabetic polyneuropathy (ICD-10 - E11.42) 11/23/2023 Tinea unguium (ICD-10 - B35.1) 02/02/2024 Type 2 diabetes mellitus with diabetic polyneuropathy (ICD-10 - E11.42) 02/02/2024 Tinea unguium (ICD-10 - B35.1) 08/26/2024 Type 2 diabetes mellitus with diabetic polyneuropathy (ICD-10 - E11.42) 08/26/2024 Tinea unguium (ICD-10 - B35.1) 08/26/2024 Other hammer toe(s) (acquired), right foot (ICD-10 - M20.41) Patient Educated with: DIABETIC FOOT CARE INSTRUCTIONS. pdf (DIABETIC FOOT CARE INSTRUCTIONS. pdf) 11/23/2023 Other hammer toe(s) (acquired), right foot (ICD-10 - M20.41) Response to treatment,Impro vement 11/23/2023 Other hammer toe(s) (acquired), left foot (ICD-10 - M20.42) Response to treatment,Impro vement 08/26/2024 Other hammer toe(s) (acquired), left foot (ICD-10 - M20.42) Plan Of Treatment Pending Test Test Name Order Date 61709-ADUIARP NAIL, 6 OR MORE 09/11/2020 29853-BZBWPBJ NAIL, 6 OR MORE 12/25/2020 36725-MRWEJCF NAIL, 6 OR MORE 07/31/2021 52156-FFIFATC NAIL, 6 OR MORE 11/20/2021 78066-IOSLSCN NAIL, 6 OR MORE 01/31/2022 93759-XHZSJPI NAIL, 6 OR MORE 04/25/2022 94629-PJYBDMP NAIL, 6 OR MORE 08/29/2022 70510-FAVCSES NAIL, 6 OR MORE 11/14/2022 29809-NGNJOSK NAIL, 6 OR MORE 03/24/2023 58382-PPSRYOT NAIL, 6 OR MORE 11/23/2023 01580-PXEEHVN NAIL, 6 OR MORE 02/02/2024 78755-ZMJHYGP NAIL, 6 OR MORE 08/26/2024 99786-IYLH SKIN LESIONS, OVER 4 08/27/19 25 94888-FIOF SKIN LESIONS, OVER 4 02/02/20 24 82842-PZIX SKIN LESIONS, OVER 4 11/23/19 24 46514-LRHS SKIN LESIONS, OVER 4 03/24/20 23 22709-ZZWG SKIN LESIONS, OVER 4 11/15/19 23 81164-CENA SKIN LESIONS, OVER 4 08/30/19 23 05104-BUID SKIN LESIONS, OVER 4 04/25/20 22 47825-UHDT SKIN LESIONS, OVER 4 02/01/20 22 66800-PYGY SKIN LESIONS, OVER 4 11/21/19 22 63043-YZNP SKIN LESIONS, OVER 4 08/01/19 22 61070-SLCW SKIN LESIONS, 2 TO 4 12/26/19 21 Next Appt Details Provider Name:Ephraim Fuentes , 12/06/2024 01:45:00 PM, [address] [place], [address], Insurance Providers Payer Name Payer Address Payer Phone Subscriber Number Group Number Insured Name Patient Relationship to Insured Coverage Start Date Coverage End Date [facility] CCA SCO Claims [address] [place] [id number] Pina Gaytan Self - patient is the insured Medical (General) History Medical History History ICD Code Angina Anxiety Arthritis Back,Hip,and Knee pain CAD (Cholesterol) Cataracts Depression Diabetic border line Glaucoma Heart disease High blood pressure Chicken pox Measles Mumps thyroid UTI's Diabetes type ll Surgical History Surgery Date(Month/Year) Stent/implant R eye 06/2015 cataract surgery Hospitalization History Reason Date(Month/Year) [facility] [place] mouth from terry mchugh-1 we ek given steroids 03/19/2022
--- OUTSIDE RECORDS SUMMARY | 2024-08-26 14:38 | XMS_ITS | Patient Health Record ---
Author Organization [facility] Address [address] [place] [address] Care Team Providers Care Radiologic Technology Program Director Name Role Phone Po Vicky BROCK Primary Care Provider Ras Rios [phone] Allergies Allergen (clinical drug ingredient) Drug/Non Drug [...] Problem Status W/U Status Risk Notes Problem 479440795 Encounter for screening for malignant neoplasm of colon (Z12.11) Active confirmed Problem 246844464499346 Preprocedural examination (Z01.818) Active confirmed Problem 474364455 Irregular bowel habits (R19.8) Active confirmed Problem Diverticulosis of colon (770768229) Diverticulosis of colon (K57.30) Active confirmed Problem 509611575585702 History of Clostridioides difficile infection (Z86.19) Active confirmed Plan Of Treatment Future Test Test Name Order Date COLONOSCOPY 06/08/2019 COLONOSCOPY 08/07/2021 Insurance Providers Payer Name Payer Address Payer Phone Subscriber Number Group Number Insured Name Patient Relationship to Insured Coverage Start Date Coverage End Date [facility] [address] [place] [address] [id number] MARCELINA GEIGER Self - patient is the insured Medical (General) History Medical History History ICD Code Denies CVA,renal disease COPD ID--s/p stent placement in 2015 Hypertension Glaucoma Neg [...]
[2024-08-26 16:04] LABS: MANUAL DIFF FLAG NO
[2024-08-26 16:11] LABS: Basophils Absolute Auto 0.1 X10*3/uL (0.0-0.2); Basophils Percent Auto 0.7 % (0-2); Eosinophils Absolute Auto 0.2 X10*3/uL (0.0-0.4); Hematocrit 42.5 % (37.0-47.0); Hemoglobin 14.3 g/dl (12.0-16.0); Imm Gran Abs Auto 0.08 X10*3/uL (0.00-0.03); Imm Gran Pct Auto 0.8 % (0.0-0.4); Lymphocytes Absolute Auto 2.3 X10*3/uL (1.2-4.9); Mean Corpuscular HGB Conc 33.6 g/dl (31.0-35.0); Mean Corpuscular Hemoglobin 32.1 pg (27.0-33.0); Mean Corpuscular Volume 95.3 fL (80.0-98.0); Mean Platelet Volume 9.6 fL (9.4-12.3); Monocytes Absolute Auto 0.7 X10*3/uL (0.1-1.2); Monocytes Percent Auto 6.7 % (2-11); Neutrophils Percent Auto 67.8 % (45-73); Platelet Count 187 X10*3/uL (160-400); Red Blood Count 4.46 X10*6/uL (4.20-5.50); Red Cell Distribution Width 13.3 % (11.0-16.0); White Blood Count 10.3 X10*3/uL (4.8-10.8)
[2024-08-26 16:33] LABS: Alanine Aminotransferase 27 U/L (0-31); Albumin Level 4.2 g/dL (3.5-5.0); Alkaline Phosphatase 92 U/L (39-117); Anion Gap 11 (12-20); Aspartate Amino Transferase 26 U/L (5-31); Bilirubin Total 0.4 mg/dL (0.0-1.0); Blood Urea Nitrogen 24 mg/dL (9-16); Calcium 10.4 mg/dL (8.4-10.2); Carbon Dioxide 24 mmol/L (22-29); Chloride 109 mmol/L (96-108); Estimated Glomerular Filt Rate > 60; Glucose Random 112 mg/dL (60-115); Potassium 4.9 mmol/L (3.3-5.1); Sodium 139 mmol/L (135-145); Total Protein 7.2 g/dL (6.5-8.0)
== END 2024-08-26 14:18 | disposition home or self-care (01) ==
LOC: HO.HMGCLDS 14:17
PROVIDERS: PCP Internal Medicine
DX: Z00.00 Encounter for general adult medical examination without abnormal findings (principal)
CPT/HCPCS: 36415; 80053; 85025

== ENCOUNTER 2024-08-30 09:44 | Outpatient (AMB) | payer OTHER, SELFPAY ==
--- NOTE | 2024-08-30 09:47 | A.OFFPC_ITS ---
Vital Signs 08/30/24 09:50 Height 5 ft 1 in Weight 162 lb 8 oz BMI 30.7 BP 120/62 Blood Pressure Location Lt brachial Position Sitting Pulse 82 Pulse Source Pulse Oximeter Temp 96.8 F Temp Source Temporal Artery Scan Pulse Oximetry (%) 95 Oxygen Delivery Method Room Air Intake Visit Reasons: [facility] 09/07 glaucoma surgery Intake Note: Patient is here for a Pre-op for Glaucoma surgery scheduled with [facility] on 09/07/24. Sugarcane Research Technician Required: No Sound Effects Supervisor: Not Required per policy Accompanied by: Self / Same As Patient Allergies LATEX Allergy (Intermediate, Verified 08/30/24 10:08) rash MOLD Allergy (Intermediate, Verified 08/30/24 10:08) rash NONORGANIC FOOD Allergy (Intermediate, Verified 08/30/24 10:08) diarrhea Yeast Allergy (Intermediate, Verified 08/30/24 10:08) Diarrhea empagliflozin [From Jardiance] Adverse Reaction (Intermediate, Verified 08/30/24 10:08) Vaginal candidiasis Medication List - Last Reconciled 08/30/24 by Elysia Singh PA-C albuterol sulfate 90 mcg/actuation (Proventil HFA) 2 puffs inhalation Q6H PRN ammonium lactate 12% 1 appl topical BID aspirin (Adult Low Dose Aspirin) 81 mg PO DAILY atorvastatin 80 mg PO DAILY [BEDSIDE COMMODE As directed] betamethasone dipropionate 0.05% apply to hands twice daily Breo Ellipta 200-25 mcg/dose (fluticasone furoate-vilanterol) 1 ea PO DAILY NS cholecalciferol (vitamin D3) 25 mcg PO DAILY clonazepam 1 mg PO Q8H [commode As directed] [diabetic shoes As directed] [Disposable liners/shield/pad As directed] estradiol 0.01%(0.1mg/gram) vaginally 3 times a week; pea sized amount to urethra 3 times a week 30 days ezetimibe (Zetia) 10 mg PO BEDTIME fexofenadine (Paulette Allergy) 180 mg PO DAILY flash glucose scanning reader (FreeStyle Dany 2 [place]) As directed flash glucose sensor (FreeStyle Dany 2 Sensor kit) As directed fluticasone propionate 50 mcg/actuation 2 sprays intranasal DAILY gabapentin 100 mg PO BEDTIME [GRABBER TOOL As directed] hydrocortisone 2.5% (Proctosol HC) 1 appl MT BID-QID PRN incontinence pad, liner, disp 8 pads per day [id number] Contour Plus BC pad , Inco, Max, swo incontinence pad, liner, disp As directed [incontinent wipes As directed] lactulose 15 mL PO DAILY 90 days levothyroxine 100 mcg PO DAILY [LIFT RECLINER As directed] lisinopril 30 mg PO DAILY 90 days metformin 1,000 mg PO BID 90 days metoprolol succinate ER 25 mg PO DAILY mirabegron ER (Myrbetriq) 50 mg PO DAILY miscellaneous medical supply As directed nicotine (polacrilex) 2 mg buccal Q2H nitroglycerin 0.4 mg sublingual Q5M PRN 30 days nystatin (Nystop) 1 appl topical BID nystatin 2 mL PO TID 15 days oxycodone 5 mg PO BID 30 days [Pad bladder ultra As directed 8 times day ] tafluprost (PF) 0.0015% (Zioptan (PF)) 1 drp ophthalmic (eye) QPM timolol maleate (PF) 0.5% 1 drp ophthalmic (eye) BID venlafaxine ER 75 mg PO BEDTIME [WIPES As directed] Tobacco use date assessed: 08/30/24 Dental Screening Dental Screen Date: 08/19/24 [facility] 09/07 glaucoma surgery HPI Details 69-year-old female with past medical his tory of diabetes mellitus, coronary artery disease, hypercholesterolemia, COPD, GERD, hypothyroid and hypertension last seen 08/2024 coming in for preoperative exam. Patient has surgery with [facility] glaucoma surgery. Patient has no history of CVA or CHF. Patient has had surgery in the past without complication. Previous history of [place] 2015. Diabetes mellitus: Last A1c 08/2024 7.0% currently on metformin 1000 mg twice daily Coronary artery disease: Patient is currently on aspirin 81 mg daily as well as atorvastatin and ezetimibe for management of cholesterol. She follows with a restaurant management internship yearly. Hypertension: Blood pressure well controlled today 120/62 patient is currently on lisinopril 30 mg PFSH Medical History Anxiety and depression Thrush, oral Allergic rhinitis Franky's disease Goiter diffuse Cataract Glaucoma Tobacco abuse Type 2 diabetes mellitus with hyperglycemia GERD (gastroesophageal reflux disease) Obesity (BMI 30-39.9) COPD (chronic obstructive pulmonary disease) Coronary artery disease Carpal tunnel syndrome Hypercholesterolemia Hypothyroid Hypertension Surgical History Hx of section History of tubal ligation Family History Father Myocardial infarct Maternal Grandmother Breast cancer Mother Pancreatic cancer Sister Bipolar 1 disorder Other Mental problem Social History Household Members: Family Housing: House Do you presently have visiting nurse or other home services: No Alcohol intake: current Alcohol intake frequency: holidays/special occasions only Patient Tobacco Use Status: Current everyday Tobacco user Tobacco use type: Cigarette Cigarette Packs Per Day: 0.5 Cigarettes Per Day: 4 Years Smoked: 4 cigarettes a day e-Cigarette/Vaping Use: Currently Using Second Hand Smoke Exposure: Yes Advance Directives Date on File: 03/21/22 service: No Current occupational status: disabled Cognitive needs: No Hearing needs: No Vision needs: Yes Questionnaire Thrive Questionnaire Date Thrive assessed: 08/19/24 RYLAN-7 AMB Questionnaire RYLAN-7 Date RYLAN - 7 assessed: 08/19/24 Source: Developed by Drs. Ras Asif, Kim Jones, Dyllan Norris and colleagues, with an educational kosta from [employer]. Review of Systems Const Denies body aches, Denies chills, Denies fever(s), Denies headache(s) and Denies poor appetite Eyes Reports no additional complaints ENT Denies dysphagia, Denies dizziness, Denies headache(s) and Denies odynophagia Card Denies chest pain, Denies syncope, Denies irregular heart rhythm, Denies lightheadedness and Denies dyspnea Resp Denies cough and Denies dyspnea GI Denies abdominal pain, Denies constipation, Denies dysphagia, Denies diarrhea, Denies nausea, Denies odynophagia and Denies vomiting Details: pain with urination Musc Reports no additional complaints and Denies abnormal gait Skin/Breast Reports system reviewed and no additional complaints, except as documented Neuro Denies abnormal gait, Denies dizziness, Denies syncope and Denies headache(s) Psych Reports no additional complaints Physical exam (Primary Care) Vital Signs: Last Vital Signs Temp 96.8 F 08/30/24 09:50 Pulse 82 08/30/24 09:50 BP 120/62 08/30/24 09:50 Pulse Ox 95 08/30/24 09:50 Oxygen Delivery Method Room Air 08/30/24 09:50 BMI result Body Mass Index 30.7 Tobacco/Smoking Status: Tobacco use Status Tobacco use date assessed 08/30/24 08/30/24 09:55 Patient Tobacco Use Status Current everyday Tobacco 08/30/24 09:55 Tobacco use type Cigarette 08/30/24 09:55 e-Cigarette/Vaping Use Currently Using 08/30/24 09:55 Thrive Assessment: Date of Thrive Assessment Date Thrive assessed 08/19/24 08/30/24 09:55 Const General: cooperative, healthy appearing, comfortable and no acute distress Orientation/consciousness: patient oriented x3 HENMT Head: Yes normocephalic Ears: hearing grossly normal bilaterally General nose exam: Normal external nose present Eyes General: appearance normal, both eyes and all related structures Conjunctivae: conjunctivae normal Neck Neck: Yes full ROM and Yes no lymphadenopathy Resp Effort & Inspection: normal respiratory effort Auscultation: clear to auscultation bilaterally, no crackles, no rales, no rhonchi and wheezes lower bilaterally Cardio Rate: regular rate Rhythm: regular rhythm GI Palpation (GI): Soft to palpation, not firm, nontender, no guarding and not rigid General: Yes no CVA tenderness Back/Spine/Pelvis Back: no CVA tenderness Skin General skin exam: no rashes or lesions noted Neuro General: patient oriented x3 Gait exam (Neuro): Normal gait present Extrem General: Yes normal to inspection, Yes full ROM and No edema Psych Affect: normal affect Attitude: cooperative Insight: Good insight present (Psych) Judgement: Good judgement present (Psych) Results AMB Urinalysis, Automated UA Leukoctes 0 Ivette/uL Last Edit by SANAM Alicea on 08/30/24 10:49 UA Nitrite Negative Last Edit by SANAM Alicea on 08/30/24 10:49 UA Urobilinogen 0 mg/dL Last Edit by SANAM Alicea on 08/30/24 10:49 UA Protein 0 mg/dL Last Edit by Jimenez Xiong A on 08/30/24 10:49 UA pH 5.5 Last Edit by Jimenez Xiong, A on 08/30/24 10:49 UA Blood 0 Jordan/uL Last Edit by Jimenez Xiong, A on 08/30/24 10:49 UA Specific [place] 1.020 Last Edit by Jimenez Xiong A on 08/30/24 10: 49 UA Ketone Negative Last Edit by Jimenez Xiong, A on 08/30/24 10:49 UA Bilirubin 0 mg/dL Last Edit by Jimenez Xiong A on 08/30/24 10:49 UA Glucose 0 mg/dL Last Edit by Jimenez Xiong A on 08/30/24 10:49 Results Reviewed Results Reviewed: Laboratory Last Values Urine pH (Auto) 5.5 08/30/24 10:37 Specific [place] (Auto) 1.020 08/30/24 10:37 Urine Protein (Auto) 0 mg/dL 08/30/24 10:37 Glucose (UA)(Auto) 0 mg/dL 08/30/24 10:37 Urine Ketones (Auto) Negative 08/30/24 10:37 Urine Blood (Auto) 0 Jordan/uL 08/30/24 10:37 Urine Nitrite (Auto) Negative 08/30/24 10:37 Urine Bilirubin (Auto) 0 mg/dL 08/30/24 10:37 Urine Urobilinogen (Auto) 0 mg/dL 08/30/24 10:37 Leukocyte Esterase (Auto) 0 Ivette/uL 08/30/24 10:37 Coding Level of Care Code Est Pt Level 4 (06403) Diagnoses Pre-op evaluation Z01.818 Assessment & Plan Assessment & Plan (1) Pre-op evaluation: Code(s): Z01.818 - Encounter for other preprocedural examination Category: Medical Plan: Regarding preop clearance, the patient is at moderate risk for proposed surgery due to age and comorbidities. Reviewed with the patient that no surgery is completely free of risk and that this examination is to assist the surgeon in reviewing informed consent. She has no evidence of active infection in the urine and recently completed her antibiotics. She continues to follow with Urology for this chronic concern. No further workup needed at this time. Discussed with patient she may take all medications as prescribed up until the day of the procedure unless otherwise instructed by the surgeon. Medications may be continued the day following the procedure. Blood work evaluated. No further workup needed at this time and may proceed with the contemplated procedure. Thank you very much for letting me participate in the care of this patient. Plan This note was constructed using voice recognition software. While every effort has been made to ensure accuracy and java web developer, still areas may have been included sometimes these areas may affect the content or meeting of the given symptoms. Total time spent caring for the patient today was twenty minutes. This includes time spent before the visit reviewing the chart, time spent during the visit, and time spent after the visit and documentation. Orders: Orders AMB Urinalysis Automated Today Z13.9 - Encounter for screening, unspecified Referrals Psychiatry Referral F41.1 - Generalized anxiety disorder
[2024-08-30 09:50] VITALS: BP 120/62; PULSE 82; TEMP 36; O2SAT 95; BMI 30.7
--- OUTSIDE RECORDS SUMMARY | 2024-08-30 11:02 | XMS_ITS | Data Portability ---
Author Organization [facility], [place] in - Count includes the [facility] Address [address] [place] [id number] Care Team Providers Care Script Reader Name Role Phone [facility] Referring Provider [phone] Assessment Encounter Date Assessment Date Assessment LastModified by Organization Details LastModified Time 10/22/2022 10/22/2022 I have reviewed and agree with the assessment and plan as documented by the employee benefits coordinator. I provided real-time medical direction for this [...] is intermediate for macrobid. Will send bactrim. [email or web address] Not available 10/25/2022 15:03:49 Plan of Treatment Reminders Order Date Submit Date Provider Last Modified By Organization Details Last Modified Time Details Appointments None recorded. Lab culture, urine 2022 023 LAURENCE [facility] (Centralized Electronic Ordering - All Locations), Patient Can Go To The Location Of Their Choice, [id number] 11:11:00 [facility]inalysis , [facility] [address], [place], [phone] 15:49:26 Referral None recorded. Procedures None recorded. Surgeries None recorded. Imaging None recorded. Medication Orders Macrobid 100 mg capsule 2022 023 LAURENCE [id number], [address], [place], [phone], 10:59:20 Bactrim DS 800 mg-160 mg tablet 2022 023 [id number], [address], [place], [phone], 15:04:26 Patient TargetsNo targets recorded. Patient InstructionsNo [...] CULTU RE nitrofuranto in NITROF URANTO IN [facility] EDIATE intermedi ate Not Available [facility] (Centralized [...] Go To The Location Of Their Choice, [id number] 10/25/2022 11:11:00 10/23/19 23 10/25/2022 URINE CULTU RE tetracycline TETRAC YCLINE SUSCEP TIBLE susceptib le Not Available [facility] (Centralized Electronic Ordering - All Locations) Patient Can Go To The Location Of Their Choice, [id number] 10/25/2022 11:11:00 Result Notes None recorded. Medical [...] [degF] 98 % 98 % 70 /min 81450.0 88 g 18 /min 146 mm[Hg] 76 [...] SNOMED-CT Code Diagnosis ICD10 Code Diagnosis Note [id number] Josh Buckley MD Main - [facility] [address] [place] [phone] 10/22/2022 10:52:47 10/23/2022 10:59:30 Dysuria 06687295 R30.0 Acute cystitis 63006531 N30.00 Health Concerns Section Related Observation LastModified by Organization Detai ls LastModified Time None Recorded Concern Status LastModified by Organization Details LastModified Time None Recorded Advance Directives Directive None Recorded Payers Encounter Date Sequence Insurance Name Policy Number Policy Vasquez Covered Member ID Vasquez Member ID Guarantor Name 10/22/2022 1 [facility] - DOS ON OR AFTER 2022 - DUAL ELIGIBLE - [facility] OPTIONS AND ONE [employer] (MEDICARE REPLACEMENT/ADV ANTAGE - HMO) Pina langley [id number] Pina ordoñez Notes Date Note Type Note [...] visit tomorrow 10/22. Josh Buckley MD [address], [place], [address], [place] - [employer] 10/25/2022 15:04:26 OBGyn Episode No OBEpisode recorded.
--- OUTSIDE RECORDS SUMMARY | 2024-08-30 11:02 | XMS_ITS | Patient Health Record ---
Author Organization [facility] Address [address] [place] [address] Care Team Providers Care Hospital Nursing Assistant Name Role Phone Vicky Whitman Primary Care Provider Ephraim Mercado Unavailable [phone] Allergies Allergen (clinical drug ingredient) Drug/Non Drug [...] Problem Acquired hammer toe of right foot (6258916274125087 ) Other hammer toe(s) (acquired), right foot (M20.41) Active confirmed Response to treatment, Improvemen t Problem Acquired hammer toe of left foot (2433884874207428 ) Other hammer toe(s) (acquired), left foot (M20.42) Active confirmed Response to treatment, Improvemen t Problem Polyneuropathy due to type 2 diabetes mellitus (928300872) Type 2 diabetes mellitus with diabetic polyneuropathy (E11.42) Active confirmed Vital Signs Blood pressure diastolic 81 mm Hg 08/26/2024 Height 5ft in 08/26/2024 Blood pressure systolic 133 mm Hg 08/26/2024 Weight 162 lbs 08/26/2024 BMI 31.64 kg/m2 08/26/2024 Procedures Procedure Date Ordered Date Performed Result Body Sit e 39763-MJKVCMM NAIL, 6 OR MORE 11/23/2023 N/A 23708-UWRQ SKIN LESIONS, OVER 4 11/23/2023 N/A 43244-BXXSPXA NAIL, 6 OR MORE 02/02/2024 N/A 11104-DIBN SKIN LESIONS, OVER 4 02/02/2024 N/A 90743-VHHRSPG NAIL, 6 OR MORE 08/26/2024 N/A 18055-AGHZ SKIN LESIONS, OVER 4 08/26/2024 N/A Encounters Encounter Location Date Provider Diagnosis [facility] [address] [address] 11/23/2023 Ephraim Fuentes Type 2 diabetes mellitus with diabetic polyneuropathy E11.42 ; Tinea unguium B35.1 ; Other hammer toe(s) (acquired), right foot M20.41 and Other hammer toe(s) (acquired), left foot M20.[address] [address] 02/02/2024 Ephraim Fuentes Type 2 diabetes mellitus with diabetic polyneuropathy E11.42 and Tinea unguium B35.[address] [address] 08/26/2024 Ephraimbarrett Fuentes Type 2 diabetes mellitus with diabetic polyneuropathy E11.42 ; Tinea unguium B35.1 ; Other hammer toe(s) (acquired), right foot M20.41 and Other hammer toe(s) (acquired), left foot M20.[address] [address] 05/04/2024 Ephraim Fuentes [address] [address] 08/16/2024 Ephraim Fuentes Assessments Encounter Date Diagnosis [...] Treatment Pending Test Test Name Order Date 87946-FWXQMRP NAIL, 6 OR MORE 09/11/2020 96051-QCLJKZC NAIL, 6 OR MORE 12/25/2020 92615-QMSLPFF NAIL, 6 OR MORE 07/31/2021 80966-RLGCHWO NAIL, 6 OR MORE 11/20/2021 76410-WQZPXWP NAIL, 6 OR MORE 01/31/2022 21349-PSDXCMP NAIL, 6 OR MORE 04/25/2022 62296-VVKAOKI NAIL, 6 OR MORE 08/29/2022 09511-FEMMJRN NAIL, 6 OR MORE 11/14/2022 21730-OPOLYJV NAIL, 6 OR MORE 03/24/2023 11511-ASZZFJT NAIL, 6 OR MORE 11/23/2023 27141-JDSOBTO NAIL, 6 OR MORE 02/02/2024 00581-QEVTFWU NAIL, 6 OR MORE 08/26/2024 94039-YCWV SKIN LESIONS, OVER 4 08/27/19 25 33735-CRBM SKIN LESIONS, OVER 4 02/02/20 24 41691-BZRN SKIN LESIONS, OVER 4 11/23/19 24 71397-OEVI SKIN LESIONS, OVER 4 03/24/20 23 49215-RZMO SKIN LESIONS, OVER 4 11/15/19 23 78995-ZWFW SKIN LESIONS, OVER 4 08/30/19 23 37013-SDLR SKIN LESIONS, OVER 4 04/25/20 22 72595-LTDY SKIN LESIONS, OVER 4 02/01/20 22 82300-WNCR SKIN LESIONS, OVER 4 11/21/19 22 32781-VPWP SKIN LESIONS, OVER 4 08/01/19 22 95697-FIEB SKIN LESIONS, 2 TO 4 12/26/19 21 Next Appt Details Provider Name:Ephraim Fuentes , 12/06/2024 01:45:00 PM, [address] [place], [address], Insurance Providers Payer Name Payer Address Payer Phone Subscriber Number Group Number Insured Name Patient Relationship to Insured Coverage Start Date Coverage End Date [facility] CCA SCO Claims [address] [place] [id number] Pina Gaytan Self - patient is the insured Medical (General) History Medical History History ICD Code Angina Anxiety Arthritis Back,Hip,and Knee pain CAD (Cholesterol) Cataracts Depression Diabetic border line Glaucoma Heart disease High blood pressure Chicken pox Measles Mumps thyroid UTI's Diabetes type ll Surgical History Surgery Date(Month/Year) Stent/implant R eye 06/2015 cataract surgery Hospitalization History Reason Date(Month/Year) [facility] [place] -thrush mouth from terry mchugh-1 we ek given steroids 03/19/2022
--- OUTSIDE RECORDS SUMMARY | 2024-08-30 11:03 | XMS_ITS ---
Author Organization [facility] Address [address] [place] [address] Care Team Providers Care History Tutor Name Role Phone Vicky Whitman Primary Care Provider Ephraim Mercado [phone] REASON FOR VISIT SD Reschedule/Cancel Encounters Encounter Location Date Provider Diagnosis [address] [address] 08/16/2024 Ephraim Fuentes Plan Of Treatment Next Appt Details Provider Name:Ephraim Fuentes , 12/06/2024 01:45:00 PM, [address] [place] [address], [address], Progress Notes * Pina MATHISDOB:10/1954 (69 yo F)Acc No.[id number]:08/16/2024 Patient:?Alvaro MATHIS :1955???Age:69 Y???Sex:Female Address:[address] [place] [address] [address], [place], [address] * true * Date:? Generated for Printi ng/Faxing/eTransmitting on:?08/30/2024 11:02 AM EDT
--- OUTSIDE RECORDS SUMMARY | 2024-08-30 11:03 | XMS_ITS ---
Author Organization [facility] Address [address] [place] [address] Care Team Providers Care Enrollment Processor Name Role Phone Vicky Whitman Primary Care Provider Ephraim Mercado Unavailable [phone] Encounters Encounter Location Date Provider Diagnosis [address] [address] 08/16/2024 Ephraim Fuentes Plan Of Treatment Next Appt Details Provider Name:Ephraim Fuentes , 12/06/2024 01:45:00 PM, [address] [place] [address], [address], Progress Notes * Pina MATHISDOB:10/1954 (69 yo F)Acc No.[id number]:08/16/2024 Progress Note Patient:?PABLOCLINTONAlvaro MEHTA Provider:?Ephraim Fuentes DPM :1955???Age:69 Y???Sex:Female D ate:08/16/2024 Address:[address] [place] [address] [address], [place] Pcp:Vicky Whitman Subjective: * Chief Complaints: * ??? * Medical History:? Objective: * Vitals:? Assessment: Plan: * Treatment: * Images: * The named appointment provid er may or may not be the originator of this progress note, and it is not deemed complete until electronically signed by the appointment provider. Sign off status: Pending * Provider:Thea Fuentes DPM Date:?2024 Generated for Sirisha pressley/Jasmeet/Ankita on:?08/30/2024 11:03 AM EDT
--- OUTSIDE RECORDS SUMMARY | 2024-08-30 11:03 | XMS_ITS ---
Author Organization [facility] Address [address] [place] [address] Care Team Providers Care Perennial House Manager Name Role Phone Vicky Whitman Primary Care Provider Ephraim Mercado Unavailable [phone] Allergies Allergen (clinical drug ingredient) Drug/Non Drug [...] Ordered Date Performed Result Body Sit e 42962-NUVKQVC NAIL, 6 OR MORE 08/26/2024 N/A 91540-TEMC SKIN LESIONS, OVER 4 08/26/2024 N/A Encounters Encounter Location Date Provider Diagnosis [facility] [address] [address] 08/26/2024 Ephraim Fuentes Type 2 diabetes mellitus [...] INSTRUCTIONS.pdf) Pending Test Test Name Order Date 77293-MUTABYA NAIL, 6 OR MORE 08/26/2024 62928-DYSE SKIN LESIONS, OVER 4 08/27/19 25 Next Appt Details Follow Up: 2 Months, Reason: Provider Name:Ephraim Fuentes , 12/06/2024 01:45:00 PM, [address] [place] [address], [phone], Procedure Notes * Category Sub-Category Detail [...] of a nail nipper and/or dremel-type grinder and honer operator automatic, to a more viable healthy nail plate [...] to maintain effectiveness in symptomatic relief - 32631 Keratoma Treatment Parring or Cutting o f [...] instrumentation by the physician of record - 72765 Progress Notes * Pina MATHISDOB:10/1954 (69 yo F)Acc No.[id number]:08/26/2024 Progress Note Patient:?Alvaro MATHIS Provider:?Ephraim Fuentes DPM :1955???Age:69 Y???Sex:Female D ate:08/26/2024 Address:[address] [place], [place] [address] Pcp:Vicky Whitman Subjective: * Chief Complaints: * [...] of a nail nipper and/or dremel-type grinder and honer operator automatic, to a more viable healthy nail plate [...] to maintain effectiveness in symptomatic relief - 89260.?Keratoma Treatment:?Parring or Cutting of Benign Hyperkeratotic Lesion(s)?(-57) [...] instrumentation by the physician of record - 61064.? * Procedure Codes:?68988 DEBRI DE NAIL, 6 OR MORE, Modifiers: XS 10691 TRIM SKIN LESIONS, OVER 4, Modifiers: XS [...] DPM Date:?2024 Generated for Sirisha pressley/Jasmeet/Ankita on:?08/30/2024 11:02 AM EDT History and Physical Notes * HPI [...]
--- OUTSIDE RECORDS SUMMARY | 2024-08-30 11:03 | XMS_ITS | Patient Health Record ---
Author Organization [facility] Address [address] [place] [address] Care Team Providers Care Notch Machine Operator Name Role Phone Po Vicky BROCK Primary Care Provider Ras Rios [phone] Allergies Allergen (clinical drug ingredient) Drug/Non Drug [...] Problem Status W/U Status Risk Notes Problem 044380555 Encounter for screening for malignant neoplasm of colon (Z12.11) Active confirmed Problem 065535368942846 Preprocedural examination (Z01.818) Active confirmed Problem 620200180 Irregular bowel habits (R19.8) Active confirmed Problem Diverticulosis of colon (208254983) Diverticulosis of colon (K57.30) Active confirmed Problem 899590965233377 History of Clostridioides difficile infection (Z86.19) Active confirmed Plan Of Treatment Future Test Test Name Order Date COLONOSCOPY 06/08/2019 COLONOSCOPY 08/07/2021 Insurance Providers Payer Name Payer Address Payer Phone Subscriber Number Group Number Insured Name Patient Relationship to Insured Coverage Start Date Coverage End Date [facility] [address] [place] [phone] [id number] MARCELINA GEIGER Self - patient is the insured Medical (General) History Medical History History ICD Code Denies CVA,renal disease COPD PR--s/p stent placement in 2015 Hypertension Glaucoma Neg [...]
== END 2024-08-30 10:46 | disposition home or self-care (01) ==
LOC: HO.HMCH 09:44
PROVIDERS: PCP Internal Medicine
DX: Z01.818 Encounter for other preprocedural examination (principal); Z13.9 Encounter for screening, unspecified

== ENCOUNTER → 2024-08-30 09:44 | Outpatient (BNVA) | payer OTHER, SELFPAY | PROVIDERS: PCP Internal Medicine | DX: Z01.818 Encounter for other preprocedural examination (principal); E11.9 Type 2 diabetes mellitus without complications; I25.10 Atherosclerotic heart disease of native coronary artery without angina pectoris; E78.00 Pure hypercholesterolemia, unspecified; J44.9 Chronic obstructive pulmonary disease, unspecified; K21.9 Gastro-esophageal reflux disease without esophagitis; E03.9 Hypothyroidism, unspecified; I10 Essential (primary) hypertension; F41.1 Generalized anxiety disorder; Z79.82 Long term (current) use of aspirin | CPT/HCPCS: 81003; 99212 ==

== ENCOUNTER → 2024-09-27 11:00 | Outpatient (BNVA) | payer OTHER, SELFPAY | PROVIDERS: PCP Internal Medicine; Visit Provider Urology ==

== ENCOUNTER 2024-09-28 11:13 | Outpatient (AMB) | payer OTHER, SELFPAY ==
[2024-09-28 11:24] VITALS: BP 148/68; PULSE 67; O2SAT 96; BMI 32.3
--- NOTE | 2024-09-28 11:24 | MHC.OFFVIS ---
Vital Signs 09/28/24 11:24 Height 5 ft 1 in Weight 171 lb BMI 32.3 BP 148/68 H Blood Pressure Location Lt brachial Position Sitting Pulse 67 Pulse Source Pulse Oximeter Pulse Oximetry (%) 96 Oxygen Delivery Method Room Air Intake Visit Reasons: COPD Intake Note: pt is here for follow up and states she has a cough with phlegm Sales Service Technician Required: No Allergies LATEX Allergy (Intermediate, Verified 09/28/24 11:27) rash MOLD Allergy (Intermediate, Verified 09/28/24 11:27) rash NONORGANIC FOOD Allergy (Intermediate, Verified 09/28/24 11:27) diarrhea Yeast Allergy (Intermediate, Verified 09/28/24 11:27) Diarrhea empagliflozin [From Jardiance] Adverse Reaction (Intermediate, Verified 09/28/24 11:27) Vaginal candidiasis Medication List - Last Reconciled 09/28/24 by Linwood Orozco MD albuterol sulfate 90 mcg/actuation (Proventil HFA) 2 puffs inhalation Q6H PRN ammonium lactate 12% 1 appl topical BID aspirin (Adult Low Dose Aspirin) 81 mg PO DAILY atorvastatin 80 mg PO DAILY [BEDSIDE COMMODE As directed] betamethasone dipropionate 0.05% apply to hands twice daily Breo Ellipta 200-25 mcg/dose (fluticasone furoate-vilanterol) 1 ea PO DAILY NS cholecalciferol (vitamin D3) 25 mcg PO DAILY clonazepam 1 mg PO Q8H [commode As directed] [diabetic shoes As directed] [Disposable liners/shield/pad As directed] estradiol 0.01%(0.1mg/gram) vaginally 3 times a week; pea sized amount to urethra 3 times a week 30 days ezetimibe (Zetia) 10 mg PO BEDTIME fexofenadine (Paulette Allergy) 180 mg PO DAILY flash glucose scanning reader (TrustPoint InternationalStyle Dany 2 [place]) As directed flash glucose sensor (FreeStyle Dany 2 Sensor kit) As directed fluticasone propionate 50 mcg/actuation 2 sprays intranasal DAILY gabapentin 100 mg PO BEDTIME [GRABBER TOOL As directed] hydrocortisone 2.5% (Proctosol HC) 1 appl VT BID-QID PRN incontinence pad, liner, disp 8 pads per day [id number] Contour Plus BC pad , Inco, Max, swo incontinence pad, liner, disp As directed [incontinent wipes As directed] lactulose 15 mL PO DAILY 90 days levothyroxine 100 mcg PO DAILY [LIFT RECLINER As directed] lisinopril 30 mg PO DAILY 90 days metformin 1,000 mg PO BID 90 days metoprolol succinate ER 25 mg PO DAILY mirabegron ER (Myrbetriq) 50 mg PO DAILY miscellaneous medical supply As directed nicotine (polacrilex) 2 mg buccal Q2H nitroglycerin 0.4 mg sublingual Q5M PRN 30 days nystatin (Nystop) 1 appl topical BID nystatin 2 mL PO TID 15 days oxycodone 5 mg PO BID 30 days [Pad bladder ultra As directed 8 times day ] tafluprost (PF) 0.0015% (Zioptan (PF)) 1 drp ophthalmic (eye) QPM timolol maleate (PF) 0.5% 1 drp ophthalmic (eye) BID venlafaxine ER 75 mg PO BEDTIME [WIPES As directed] Do you need a note to return to daycare/school/sports/work: No HPI HPI COPD: Details: THIS 69 YEARS OLD FEMALE IS COMING FOR FOLLOW-UP AFTER 6 MONTHS FAR COPD IS CONCERNED IT HAS REMAINED STABLE. SHE CONTINUES TO HAVE INTERMITTENT COUGH WHICH IS RELATED MOSTLY TO HER SMOKING. SHE CONTINUES TO HAVE FREQUENT BOUTS OF NASAL CONGESTION WITH POSTNASAL DRIP, SECONDARY TO ALLERGIC RHINITIS. SHE IS USING FLONASE MORE OFTEN AND IS ALSO ON MONTELUKAST 10 MG DAILY. SHE DOES HAVE FEXOFENADINE TABLETS AT HOME BUT DOES NOT USE IT REGULARLY HER MAIN COMPLAINT TODAY WAS URINARY INCONTINENCE AND WEARING OF ABOUT 5 OR 6 PADS DAILY. SHE IS BEING FOLLOWED BY UROLOGIC SERVICE AND WOULD BE HAVING URODYNAMIC TESTING. CURRENTLY SMOKING 4 CIGARETTES A DAY . FORMERLY [facility], [facility] Medical History Anxiety and depression Thrush, oral Allergic rhinitis Franky's disease Goiter diffuse Cataract Glaucoma Tobacco abuse Type 2 diabetes mellitus with hyperglycemia GERD (gastroesophageal reflux disease) Obesity (BMI 30-39.9) COPD (chronic obstructive pulmonary disease) Coronary artery disease Carpal tunnel syndrome Hypercholesterolemia Hypothyroid Hypertension Surgical History Hx of section History of tubal ligation Family History Father Myocardial infarct Maternal Grandmother Breast cancer Mother Pancreatic cancer Sister Bipolar 1 disorder Other Mental problem Social History Household Members: Family Housing: House Do you presently have visiting nurse or other home services: No Alcohol intake: current Alcohol intake frequency: holidays/special occasions only Patient Tobacco Use Status: Current everyday Tobacco user Tobacco use type: Cigarette Cigarette Packs Per Day: 0.5 Cigarettes Per Day: 4 Years Smoked: 4 cigarettes a day e-Cigarette/Vaping Use: Currently Using Second Hand Smoke Exposure: Yes Advance Directives Date on File: 03/21/22 service: No Current occupational status: disabled Cognitive needs: No Hearing needs: No Vision needs: Yes Review of Systems Const All systems reviewed & are unremarkable except as noted in HPI and below (I also reviewed PFSH .) Eyes Reports no additional complaints ENT Reports nasal congestion and Reports nasal discharge Card Denies chest pain, Denies irregular heart rhythm and Denies leg edema Resp Reports as per HPI GI Reports no additional complaints Reports no additional complaints Musc Reports back pain (Mild to moderate off and on) Skin/Breast Reports system reviewed and no additional complaints, except as documented Neuro Reports no additional complaints Psych Reports anxiety Endo Reports no additional complaints Physical Exam Vital Signs: Last Vital Signs Pulse 67 09/28/24 11:24 BP 148/68 H 09/28/24 11:24 Pulse Ox 96 09/28/24 11:24 Oxygen Delivery Method Room Air 09/28/24 11:24 BMI result Body Mass Index 32.3 Const General: comfortable, no acute distress, alert and awake Orientation/consciousness: patient oriented x3 HEENT Head: Yes normal to inspection General nose exam: No nasal polyps present, No nasal discharge present and Other nasal findings present (Bilateral nasal congestion) Face and sinus: Yes sinuses nontender Mouth: oropharynx normal (No ulcers of or mucosal white spots were noted.) Eyes General: appearance normal, both eyes and all related structures Neck Neck: Yes normal visual inspection, Yes no lymphadenopathy, Yes trachea midline and Yes no JVD Thyroid: Thyroid normal Chest Chest palpation & inspection: normal inspection of the chest, normal palpation of entire chest wall and no tenderness Resp Other: Percussion note resonant, breath sounds are slightly distant with prolonged expiratory phase I did not hear any wheezes rhonchi or crepitations today. Cardio Palpation: normal PMI Rate: regular rate Rhythm: regular rhythm Heart sounds: no gallops and no murmurs GI Palpation (GI): Soft to palpation, nontender, No hepatosplenomegaly present and no masses Auscultation: normal bowel sounds Back/Spine/Pelvis Thoracic/Lumbar Spine: thoracic and lumbar spine normal to inspection, thoraco-lumbar ROM limited and thoraco-lumbar spasm Skin General skin exam: no rashes or lesions noted Neuro General: patient oriented x3 and no focal motor deficits Cranial nerves: Yes CN's II-XII intact bilaterally Extrem General: Yes normal to inspection, Yes no clubbing, cyanosis or edema and Yes no calf tenderness Psych Appearance: grossly normal and well kempt Speech and movement: Normal speech and movement present Assessment & Plan Assessment & Plan (1) COPD (chronic obstructive pulmonary disease): Comment: Chronic, mild to moderate COPD, and she also has moderate degree of restrictive disorder. Overall it is staying stable. Code(s): J44.9 - Chronic obstructive pulmonary disease, unspecified Category: Medical Qualifiers: COPD type: emphysema Emphysema type: unspecified Qualified Code(s): J43.9 - Emphysema, unspecified Plan: ADVISED TO CONTINUE USING BREO ELLIPTA 200-251 INHALATION DAILY. CONTINUE ALBUTEROL HFA 2 PUFFS Q 4-6 HOURS P.R.N. (2) Tobacco abuse: Comment: SHE CONTINUES TO SMOKE ABOUT 4-5 CIGARETTES A DAY. COUNSELED THAT SHE SHOULD STOP SMOKING COMPLETELY . . HER COUGH AND CONGESTED FEELING IN THE UPPER AIRWAYS IS MOSTLY SECONDARY TO SMOKING. SHE IS TRYING HER BEST TO CUT DOWN THE NUMBER OF CIGARETTES. Code(s): Z72.0 - Tobacco use Category: Medical Plan: AGAIN TALKED TO HER ABOUT QUITTING COMPLETELY. FOR THE TIME BEING CUT DOWN THE NUMBER OF CIGARETTES TO 3 AND THEN 2 2 PER DAY. (3) Allergic rhinitis: Comment: She has nasal congestion almost on a daily basis. Code(s): J30.9 - Allergic rhinitis, unspecified Category: Medical Plan: USE FLONASE 2 SPRAY IN EACH NOSTRIL DAILY. MAY USE FEXOFENADINE 180 MG ONCE A DAY PRN FOR INCREASED SYMPTOMS. Coding Level of Care Code Est Pt Level 3 (81755) Diagnoses Pulmonary emphysema, unspecified emphysema type J43.9 COPD type: emphysema Emphysema type: unspecified Tobacco abuse Z72.0 Allergic rhinitis J30.9
--- OUTSIDE RECORDS SUMMARY | 2024-09-28 12:15 | XMS_ITS | Patient Health Record ---
Author Organization [facility] Address [address] [facility] [place] [address] Care Team Providers Care Agricultural Equipment Test Engineer Name Role Phone Vicky Whitman Primary Care Provider Ephraim Mercado Unavailable [phone] Allergies Allergen (clinical drug ingredient) Drug/Non Drug [...] Problem Acquired hammer toe of right foot (0335976802678781 ) Other hammer toe(s) (acquired), right foot (M20.41) Active confirmed Response to treatment, Improvemen t Problem Acquired hammer toe of left foot (1620586920282699 ) Other hammer toe(s) (acquired), left foot (M20.42) Active confirmed Response to treatment, Improvemen t Problem Polyneuropathy due to type 2 diabetes mellitus (250063447) Type 2 diabetes mellitus with diabetic polyneuropathy (E11.42) Active confirmed Vital Signs Blood pressure diastolic 81 mm Hg 08/26/2024 Height 5ft in 08/26/2024 Blood pressure systolic 133 mm Hg 08/26/2024 Weight 162 lbs 08/26/2024 BMI 31.64 kg/m2 08/26/2024 Procedures Procedure Date Ordered Date Performed Result Body Sit e 01052-ISJBBPN NAIL, 6 OR MORE 11/23/2023 N/A 81810-LEKG SKIN LESIONS, OVER 4 11/23/2023 N/A 74164-BRAKFSU NAIL, 6 OR MORE 02/02/2024 N/A 08720-AMOI SKIN LESIONS, OVER 4 02/02/2024 N/A 88735-YJQSUFY NAIL, 6 OR MORE 08/26/2024 N/A 68050-GLNB SKIN LESIONS, OVER 4 08/26/2024 N/A Encounters Encounter Location Date Provider Diagnosis [facility] [address] [address] 11/23/2023 Ephraim Fuentes Type 2 diabetes mellitus with diabetic polyneuropathy E11.42 ; Tinea unguium B35.1 ; Other hammer toe(s) (acquired), right foot M20.41 and Other hammer toe(s) (acquired), left foot M20.[address] [address] 02/02/2024 Ephraim Fuentes Type 2 diabetes mellitus with diabetic polyneuropathy E11.42 and Tinea unguium B35.[address] [address] 08/26/2024 Ephraimbarrett Fuentes Type 2 diabetes mellitus with diabetic polyneuropathy E11.42 ; Tinea unguium B35.1 ; Other hammer toe(s) (acquired), right foot M20.41 and Other hammer toe(s) (acquired), left foot M20.[address] [address] 05/04/2024 Ephraim Fuentes [address] [address] 08/16/2024 Ephraim Fuentes Assessments Encounter Date Diagnosis [...] Treatment Pending Test Test Name Order Date 25493-FBQKRDR NAIL, 6 OR MORE 09/11/2020 92058-ZBDCHSL NAIL, 6 OR MORE 12/25/2020 61647-USHYLYT NAIL, 6 OR MORE 07/31/2021 08372-UUIDKHV NAIL, 6 OR MORE 11/20/2021 80454-GPPFUDG NAIL, 6 OR MORE 01/31/2022 23562-WQFVTHU NAIL, 6 OR MORE 04/25/2022 11587-SCMIWOT NAIL, 6 OR MORE 08/29/2022 81901-MVFGFVN NAIL, 6 OR MORE 11/14/2022 37277-OCDMJZS NAIL, 6 OR MORE 03/24/2023 59521-YWAOWGG NAIL, 6 OR MORE 11/23/2023 01914-RPMYJFR NAIL, 6 OR MORE 02/02/2024 74151-EKETUER NAIL, 6 OR MORE 08/26/2024 49854-FKMA SKIN LESIONS, OVER 4 08/27/19 25 13832-WSLU SKIN LESIONS, OVER 4 02/02/20 24 04351-SXTU SKIN LESIONS, OVER 4 11/23/19 24 02429-MHWO SKIN LESIONS, OVER 4 03/24/20 23 31482-KNER SKIN LESIONS, OVER 4 11/15/19 23 08172-NVEE SKIN LESIONS, OVER 4 08/30/19 23 19000-PBJQ SKIN LESIONS, OVER 4 04/25/20 22 44536-BKJF SKIN LESIONS, OVER 4 02/01/20 22 54621-NUNI SKIN LESIONS, OVER 4 11/21/19 22 31885-WBBH SKIN LESIONS, OVER 4 08/01/19 22 41475-HEQN SKIN LESIONS, 2 TO 4 12/26/19 21 Next Appt Details Provider Name:Ephraim Fuentes , 12/06/2024 01:45:00 PM, [address] [place], [address], Insurance Providers Payer Name Payer Address Payer Phone Subscriber Number Group Number Insured Name Patient Relationship to Insured Coverage Start Date Coverage End Date [facility] CCA SCO Claims [address] [place] [address] [id number] Pina Gaytan Self - patient is the insured Medical (General) History Medical History History ICD Code Angina Anxiety Arthritis Back,Hip,and Knee pain CAD (Cholesterol) Cataracts Depression Diabetic border line Glaucoma Heart disease High blood pressure Chicken pox Measles Mumps thyroid UTI's Diabetes type ll Surgical History Surgery Date(Month/Year) Stent/implant R eye 06/2015 cataract surgery Hospitalization History Reason Date(Month/Year) [facility] [place] -thrush mouth from terry mchugh-1 we ek given steroids 03/19/2022
--- OUTSIDE RECORDS SUMMARY | 2024-09-28 12:15 | XMS_ITS ---
Author Organization [facility] Address [address] [facility] [place] [address] Care Team Providers Care Experimental Assembler Name Role Phone Vicky Whitman Primary Care Provider Ephraim Mercado Unavailable [phone] Allergies Allergen (clinical drug ingredient) Drug/Non Drug [...] Ordered Date Performed Result Body Sit e 22091-BZBUXCR NAIL, 6 OR MORE 08/26/2024 N/A 81806-EFYG SKIN LESIONS, OVER 4 08/26/2024 N/A Encounters Encounter Location Date Provider Diagnosis [facility] [address] [address] 08/26/2024 Ephraim Fuentes Type 2 diabetes mellitus [...] INSTRUCTIONS.pdf) Pending Test Test Name Order Date 87272-LZGBTBQ NAIL, 6 OR MORE 08/26/2024 48849-UQDR SKIN LESIONS, OVER 4 08/27/19 25 Next Appt Details Follow Up: 2 Months, Reason: Provider Name:Ephraim Fuentes , 12/06/2024 01:45:00 PM, [address] [place] [address], [phone], Procedure Notes * Category Sub-Category Detail [...] use of a nail nipper and/or dremel-type bit grinder, to a more viable healthy nail [...] to maintain effectiveness in symptomatic relief - 27272 Keratoma Treatment Parring or Cutting o f [...] instrumentation by the physician of record - 25897 Progress Notes * Pina MATHISDOB:10/1954 (69 yo F)Acc No.[id number]:08/26/2024 Progress Note Patient:?Alvaro MATHIS Provider:?Ephraim Fuentes DPM :1955???Age:69 Y???Sex:Female D ate:08/26/2024 Address:[address] [place], [place] [id number] Pcp:Vicky Whitman Subjective: * Chief Complaints: * [...] use of a nail nipper and/or dremel-type bit grinder, to a more viable healthy nail [...] to maintain effectiveness in symptomatic relief - 59721.?Keratoma Treatment:?Parring or Cutting of Benign Hyperkeratotic Lesion(s)?(-57) [...] instrumentation by the physician of record - 01910.? * Procedure Codes:?41375 DEBRI DE NAIL, 6 OR MORE, Modifiers: XS 47158 TRIM SKIN LESIONS, OVER 4, Modifiers: XS [...] Fuentes DPM Date:?2024 Generated for Sirisha pressley/Jasmeet/Ankita on:?09/28/2024 12:15 PM EDT History and Physical Notes * [...]
--- OUTSIDE RECORDS SUMMARY | 2024-09-28 12:15 | XMS_ITS ---
Author Organization [facility] Address [address] [place] [address] Care Team Providers Care Coat Joiner Lockstitch Name Role Phone Vicky Whitman Primary Care Provider Ephraim Mercado [phone] REASON FOR VISIT SD Reschedule/Cancel Encounters Encounter Location Date Provider Diagnosis [address] [address] 08/16/2024 Ephraim Fuentes Plan Of Treatment Next Appt Details Provider Name:Ephraim Fuentes , 12/06/2024 01:45:00 PM, [address] [place] [address], [phone], Progress Notes * Pina MATHISDOB:10/1954 (69 yo F)Acc No.[id number]:08/16/2024 Patient:?Alvaro MATHIS :1955???Age:69 Y???Sex:Female Address:[address] [place] [address] [address], [place], [address] * true * Date:? Generated for Printi ng/Faxing/eTransmitting on:?09/28/2024 12:15 PM EDT
--- OUTSIDE RECORDS SUMMARY | 2024-09-28 12:15 | XMS_ITS ---
Author Organization [facility] Address [address] [place] [address] Care Team Providers Care Biofuels Production Technician Name Role Phone Vicky Whitman Primary Care Provider Ephraim Mercado Unavailable [phone] Encounters Encounter Location Date Provider Diagnosis [address] [address] 08/16/2024 Ephraim Fuentes Plan Of Treatment Next Appt Details Provider Name:Ephraim Fuentes , 12/06/2024 01:45:00 PM, [address] [place] [address], [phone], Progress Notes * Pina MATHISDOB:10/1954 (69 yo F)Acc No.[id number]:08/16/2024 Progress Note Patient:?PABLOCLINTONAlvaro MEHTA Provider:?Ephraim Fuentes DPM :1955???Age:69 Y???Sex:Female D ate:08/16/2024 Address:[address] [place] [address] [address], [id number] Pcp:Vicky Whitman Subjective: * Chief Complaints: * [...]
--- OUTSIDE RECORDS SUMMARY | 2024-09-28 12:15 | XMS_ITS | Patient Health Record ---
Author Organization [facility] Address [address] [place] [address] Care Team Providers Care Yield Improvement Engineer Name Role Phone Po Vicky BROCK Primary Care Provider Ras Rios [phone] Allergies Allergen (clinical drug ingredient) Drug/Non Drug [...] Problem Status W/U Status Risk Notes Problem 173403390 Encounter for screening for malignant neoplasm of colon (Z12.11) Active confirmed Problem 489252069874005 Preprocedural examination (Z01.818) Active confirmed Problem 168581603 Irregular bowel habits (R19.8) Active confirmed Problem Diverticulosis of colon (461209288) Diverticulosis of colon (K57.30) Active confirmed Problem 494869947333483 History of Clostridioides difficile infection (Z86.19) Active confirmed Plan Of Treatment Future Test Test Name Order Date COLONOSCOPY 06/08/2019 COLONOSCOPY 08/07/2021 Insurance Providers Payer Name Payer Address Payer Phone Subscriber Number Group Number Insured Name Patient Relationship to Insured Coverage Start Date Coverage End Date [facility] [address] [place] [phone] [id number] MARCELINA GEIGER Self - patient is the insured Medical (General) History Medical History History ICD Code Denies CVA,renal disease COPD AK--s/p stent placement in 2015 Hypertension Glaucoma Neg [...]
== END 2024-09-28 11:51 | disposition home or self-care (01) ==
LOC: HO.HPS 11:13
PROVIDERS: PCP Internal Medicine; Visit Provider Internal Medicine
DX: J43.9 Emphysema, unspecified (principal); Z72.0 Tobacco use; J30.9 Allergic rhinitis, unspecified
CPT/HCPCS: 99213

== ENCOUNTER → 2024-09-28 11:13 | Outpatient (BNVA) | payer OTHER, SELFPAY | PROVIDERS: PCP Internal Medicine; Visit Provider Internal Medicine | DX: J43.9 Emphysema, unspecified (principal); J30.9 Allergic rhinitis, unspecified; F17.210 Nicotine dependence, cigarettes, uncomplicated | CPT/HCPCS: 99212 ==

== ENCOUNTER 2024-10-07 10:27 | Outpatient (AMB) | payer OTHER, SELFPAY ==
--- OUTSIDE RECORDS SUMMARY | 2024-10-07 10:36 | XMS_ITS | Data Portability ---
Author Organization [employer] [facility], [place] - [facility] Address [address] [place] [address] Care Team Providers Care Lead Warehouse Associate Name Role Phone [facility] Referring Provider [phone] Assessment Encounter Date Assessment Date Assessment LastModified by Organization Details LastModified Time 10/22/2022 10/22/2022 I have reviewed and agree with the assessment and plan as documented by the broadband installer. I provided real-time medical direction for this [...] is intermediate for macrobid. Will send bactrim. [email or web address] Not available 10/25/2022 15:03:49 Plan of Treatment Reminders Order Date Submit Date Provider Last Modified By Organization Details Last Modified Time Details Appointments None recorded. Lab culture, urine 2022 023 [facility]UR[facility] (Centralized Electronic Ordering - All Locations), Patient Can Go To The Location Of Their Choice, [address] 11:11:00 [facility] , [facility] [address] [facility], [place], [address] 15:49:26 Referral None recorded. Procedures None recorded. Surgeries None recorded. Imaging None recorded. Medication Orders Macrobid 100 mg capsule 2022 023 [id number], [address] [place], [place], [phone], 10:59:20 Bactrim DS 800 mg-160 mg tablet 2022 023 [id number], [address], [place], [phone], 15:04:26 Patient TargetsNo targets recorded. Patient InstructionsNo [...] CULTU RE nitrofuranto in NITROF URANTO IN [facility] EDI[facility] intermedi ate Not Available [facility] [...] Go To The Location Of Their Choice, [address] 10/25/2022 11:11:00 10/23/19 23 10/25/2022 URINE CULTU RE tetracycline TETRAC YCLINE SUSCEP TIBLE susceptib le Not Available [facility] (Centralized Electronic Ordering - All Locations) Patient Can Go To The Location Of Their Choice, [address] 10/25/2022 11:11:00 Result Notes None recorded. Medical [...] [degF] 98 % 98 % 70 /min 86879.0 88 g 18 /min 146 mm[Hg] 76 [...] SNOMED-CT Code Diagnosis ICD10 Code Diagnosis Note 42397 Chrystal Espinosa MD Main - instED [address] [place] [phone] 10/22/2022 10:52:47 10/23/2022 10:59:30 Dysuria 24423189 R30.0 Acute cystitis 79971495 N30.00 Health Concerns Section Related Observation LastModified by Organization Detai ls LastModified Time None Recorded Concern Status LastModified by Organization Details LastModified Time None Recorded Advance Directives Directive None Recorded Payers Insurance Date Sequence Insurance Name Policy Number Policy Vasquez Covered Member ID Vasquez Member ID Guarantor Name 12/15/2023 1 [facility] - DOS ON OR AFTER 2022 - DUAL ELIGIBLE - RESIDENTIAL OPTIONS AND ONE CARE (MEDICARE REPLACEMENT/ADV ANTAGE - HMO) Pina langley [id number] Pina ordoñez Notes Date Note Type Note [...] visit tomorrow 10/22. Josh Buckley MD [address] [facility],[address], [place], [address], [place] - [employer] 10/25/2022 15:04:26 OBGyn Episode No OBEpisode recorded.
--- NOTE | 2024-10-07 11:18 | MHC.OFFVIS ---
Intake Visit Reasons: UroD Allergies LATEX Allergy (Intermediate, Verified 09/28/24 11:27) rash MOLD Allergy (Intermediate, Verified 09/28/24 11:27) rash NONORGANIC FOOD Allergy (Intermediate, Verified 09/28/24 11:27) diarrhea Yeast Allergy (Intermediate, Verified 09/28/24 11:27) Diarrhea empagliflozin [From Jardiance] Adverse Reaction (Intermediate, Verified 09/28/24 11:27) Vaginal candidiasis HPI Comments Details: 07/25/24--Pina is a pleasant 69-year-old female patient of Dr. Whitman. She has a past medical history of type 2 diabetes, anxiety, depression, GERD, COPD, hypercholesteremia, hypothyroid, hypertension, and bilateral hip joint arthritis. She she presents to the office today for follow-up of her recurrent urinary tract infections and lower urinary tract symptoms. In discussion with the patient today she reports having called her PCP a few weeks ago as she had been experiencing UTI like symptoms and was prescribed antibiotics however status post completion of antibiotic therapy continued with UTI like symptoms at which time she called our office and urine was sent for microgen. Micro gin results reviewed with the patient today. Lactobacillus gasseri, Pseudomonas fluorescens, Streptococcus oralis,mycolicibacterium aurum, bacteroides uniformis, bacteroides ovatus, and lactobacillus crispatus, Codi glabrate. She has since finished antibiotic therapy as prescribed. She reports feeling Loretta pads she received from [facility] cause her vaginal itching as she recently purchased her own Loretta pads and feels she has no bothersome vaginal issues with this product. We discussed potential for utilizing hypoallergenic pads. She discusses her recent right breast biopsy and is awaiting 2nd opinion. She also discusses her upcoming left eye surgery for her glaucoma. She continues with episodes of urinary frequency, urinary urgency, and mixed urinary incontinence. She does endorse noncompliance with Estrace cream. We discussed importance in doing so in relation to recurrent urinary tract infections as well as lower urinary tract symptoms patient continues to experience. Previous workup has included a retroperitoneal ultrasound 12/07 noting bilateral kidneys with no hydronephrosis or renal calculi limited visualization. Pre void bladder volume is approximately 160 mL. Postvoid bladder volume is approximately 60 mL. She has trialed oxybutynin, tolterodine, and Toviaz in the past with no improvement in lower urinary tract symptoms. In office urinalysis results reviewed with the patient today. PVR 20 mL. She currently denies any UTI like symptoms. We discussed potential for recurrent yeast infections in relation to diabetic medication. She reports she will follow-up with her PCP regarding this issue. Discussed further assessment evaluation with urodynamics if symptoms arise given patient's history of multiple failed overactive bladder medications. She discusses finding it difficult to keep her scheduled appointments due to her transportation issues however would like to attempt to have procedure. She otherwise offers no other issues or concerns at this time. [facility] Medical History Anxiety and depression Thrush, oral Allergic rhinitis Franky's disease Goiter diffuse Cataract Glaucoma Tobacco abuse Type 2 diabetes mellitus with hyperglycemia GERD (gastroesophageal reflux disease) Obesity (BMI 30-39.9) COPD (chronic obstructive pulmonary disease) Coronary artery disease Carpal tunnel syndrome Hypercholesterolemia Hypothyroid Hypertension Surgical History Hx of section History of tubal ligation Family History Father Myocardial infarct Maternal Grandmother Breast cancer Mother Pancreatic cancer Sister Bipolar 1 disorder Other Mental problem Social History Household Members: Family Housing: House Do you presently have visiting nurse or other home services: No Alcohol intake: current Alcohol intake frequency: holidays/special occasions only Patient Tobacco Use Status: Current everyday Tobacco user Tobacco use type: Cigarette Cigarette Packs Per Day: 0.5 Cigarettes Per Day: 4 Years Smoked: 4 cigarettes a day e-Cigarette/Vaping Use: Currently Using Second Hand Smoke Exposure: Yes Advance Directives Date on File: 03/21/22 service: No Current occupational status: disabled Cognitive needs: No Hearing needs: No Vision needs: Yes Office Procedures Urodynamic Studies Consent Discussed risk and benefit or proposed procedure with the patient. Information consent for procedure given to the patient. Discussed technical aspects, risks, benefits and alternatives in full. Addressed all of the patient's questions and concerns regarding the procedure. The patient demonstrated knowledge and understanding. They wish to proceed with this procedure. Preparation The patient was prepped in the usual manner. A senior risk manager was present and in the room. Genitalia was prepped with betadine solution in a sterile manner. Procedure Complex Uroflow Patient attempted to void for Uroflow, but did not have urge. Straight cath amount 30ml Cystometrogram ? Vaginal/rectal catheter type: Vaginal First sensation at (mL): 16mL First desire at (mL): 35 mL Strong desire to void occurred at (mL): Strong urge throughout the test due to DO Strong desire detrusor pressure (cm H2O): N/A Maximum Capacity (mL):N/A Voiding Summary Voided with max detrusor pressure of (cm H2O): 48 Maximum flow rate (mL/second): 4.5 mL/s Voided volume (mL): ? 22 (Patient likely voided out full amount, some fell onto floor and not measured) Calculated PVR: 0 mL Stress Testing Unable to perform stress testing due to severe DO DO Dry: 38ml, 41ml DO Wet: 52 ml Patient reports she did not stop her Myrbetriq prior to the test. Prep: The patient was prepped in the usual manner. A senior risk manager was present and in the room. Genitalia was prepped with betadine solution in a sterile manner. 08626-Uzihimqkrxuebz w/ TECHNICAL MAINTENANCE SPECIALIST 52886-Myyc/Urinary Muscle Study 89752-Xrmnl-Dfhtwhdgo Pressure Test Procedure code (CPT) selection complete Office Meds nitrofurantoin monohydrate/macrocrystals 100 mg capsule Performing Provider: Veronica Sharma MD [facility] Administered by: Pinky Jane RN on 10/07/24 11:18 Dose Route Admin Location Dispensed Lot Number Expiration Date ND Respiratory Equipment Assistant 100 mg PO 1 cap Results AMB Urinalysis, Automated UA Leukoctes 2 Ivette/uL Last Edit by Pinky Jane RN on 10/07/24 11:35 UA Nitrite Negative Last Edit by Pinky Jane RN on 10/07/24 11:35 UA Urobilinogen 3.5 mg/dL Last Edit by Pinky Jane RN on 10/07/24 11:35 UA Protein 0 mg/dL Last Edit by Pinky Jane RN on 10/07/24 11:35 UA pH 5.5 Last Edit by Pinky Jane RN on 10/07/24 11:35 UA Blood 10 Jordan/uL Last Edit by Pinky Jane RN on 10/07/24 11:35 UA Specific [place] 1.0 Last Edit by Pinky Jane RN on 10/07/24 11:35 UA Ketone Negative Last Edit by Pinky Jane RN on 10/07/24 11:35 UA Bilirubin 0 mg/dL Last Edit by Pinky Jane RN on 10/07/24 11:35 UA Glucose 0 mg/dL Last Edit by Pinky Jane RN on 10/07/24 11:35 Assessment & Plan Assessment & Plan Orders: Orders AMB Urinalysis Automated Today Z13.9 - Encounter for screening, unspecified AMB Urodynamics Studies Today N30.90 - Cystitis, unspecified without hematuria Coding CPT Codes Urodynamic Studies - CPT: 72115-Yoaeztxaxiygtu w/ TECHNICAL MAINTENANCE SPECIALIST ([id number]) Urodynamic Studies - CPT: 32367-Vzmt/Urinary Muscle Study ([id number]) Urodynamic Studies - CPT: 55348-Mpidb-Uvascmpeo Pressure Test ([id number])
== END 2024-10-07 11:55 | disposition home or self-care (01) ==
LOC: HO.HUSH 10:27
PROVIDERS: PCP Internal Medicine; Visit Provider Urology
DX: N30.90 Cystitis, unspecified without hematuria (principal)
CPT/HCPCS: 51728; 51784; 51797

== ENCOUNTER → 2024-10-07 10:27 | Outpatient (BNVA) | payer OTHER, SELFPAY | PROVIDERS: PCP Internal Medicine; Visit Provider Urology | DX: N32.81 Overactive bladder (principal); N30.90 Cystitis, unspecified without hematuria | CPT/HCPCS: 51728; 51784; 51797; 81003; 99212 ==

== ENCOUNTER 2024-10-31 10:04 | Outpatient (AMB) | payer OTHER, SELFPAY ==
--- NOTE | 2024-10-31 10:15 | A.OFFPC_ITS ---
Vital Signs 10/31/24 10:17 Height 5 ft 1 in Weight 166 lb 4 oz BMI 31.4 BP 120/60 Blood Pressure Location Lt brachial Position Sitting Pulse 71 Pulse Source Pulse Oximeter Temp 97.1 F Temp Source Temporal Artery Scan Pulse Oximetry (%) 98 Oxygen Delivery Method Room Air Intake Visit Reasons: Pre OP 11/[address] Clark Intake Note: Patient is here for a Pre-op for Glaucoma scheduled with Dr Clark(Eye and Lasik) on 11/07/24. Caustics Loader Required: No K 9 Police Officer: Not Required per policy Accompanied by: Self / Same As Patient Allergies LATEX Allergy (Intermediate, Verified 10/31/24 11:29) rash MOLD Allergy (Intermediate, Verified 10/31/24 11:29) rash NONORGANIC FOOD Allergy (Intermediate, Verified 10/31/24 11:29) diarrhea Yeast Allergy (Intermediate, Verified 10/31/24 11:29) Diarrhea empagliflozin [From Jardiance] Adverse Reaction (Intermediate, Verified 10/31/24 11:29) Vaginal candidiasis Medication List - Last Reconciled 10/31/24 by Elysia Singh PA-C albuterol sulfate 90 mcg/actuation (Proventil HFA) 2 puffs inhalation Q6H PRN ammonium lactate 12% 1 appl topical BID aspirin (Adult Low Dose Aspirin) 81 mg PO DAILY atorvastatin 80 mg PO DAILY [BEDSIDE COMMODE As directed] betamethasone dipropionate 0.05% apply to hands twice daily Breo Ellipta 200-25 mcg/dose (fluticasone furoate-vilanterol) 1 ea PO DAILY NS cholecalciferol (vitamin D3) 25 mcg PO DAILY clonazepam 1 mg PO Q8H [commode As directed] [diabetic shoes As directed] [Disposable liners/shield/pad As directed] estradiol 0.01%(0.1mg/gram) vaginally 3 times a week; pea sized amount to urethra 3 times a week 30 days ezetimibe (Zetia) 10 mg PO BEDTIME fexofenadine (Paulette Allergy) 180 mg PO DAILY flash glucose scanning reader ([employer] Dany 2 [place]) As directed flash glucose sensor (FreeStyle Dany 2 Sensor kit) As directed fluticasone propionate 50 mcg/actuation 2 sprays intranasal DAILY gabapentin 100 mg PO BEDTIME [GRABBER TOOL As directed] hydrocortisone 2.5% (Proctosol HC) 1 appl GA BID-QID PRN incontinence pad, liner, disp 8 pads per day [id number] Contour Plus BC pad , Inco, Max, swo incontinence pad, liner, disp As directed [incontinent wipes As directed] lactulose 15 mL PO DAILY 90 days levothyroxine 100 mcg PO DAILY [LIFT RECLINER As directed] lisinopril 30 mg PO DAILY 90 days metformin 1,000 mg PO BID 90 days metoprolol succinate ER 25 mg PO DAILY mirabegron ER (Myrbetriq) 50 mg PO DAILY miscellaneous medical supply As directed nicotine (polacrilex) 2 mg buccal Q2H nitroglycerin 0.4 mg sublingual Q5M PRN 30 days nystatin (Nystop) 1 appl topical BID nystatin 2 mL PO TID 15 days oxycodone 5 mg PO BID 30 days [Pad bladder ultra As directed 8 times day ] tafluprost (PF) 0.0015% (Zioptan (PF)) 1 drp ophthalmic (eye) QPM timolol maleate (PF) 0.5% 1 drp ophthalmic (eye) BID venlafaxine ER 75 mg PO BEDTIME [WIPES As directed] Tobacco use date assessed: 10/31/24 Fall risk assessment: No Falls in past year Last assessed Fall Risk: 10/31/24 Dental Screening Dental Screen Date: 08/19/24 [facility] Pre OP 11/[address] Clark [facility] Details 69-year-old female with past medical his tory of diabetes mellitus, coronary artery disease, hypercholesterolemia, COPD, GERD, hypothyroid and hypertension last seen 08/2024 coming in for preoperative exam. Patient has surgery with [facility] glaucoma surgery. Patient has no history of CVA or CHF. Patient has had surgery in the past without complication. Previous history of RI 2016. Reports burning with urination and suprapubic pain which began several days ago. Denies any vaginal discharge. [facility] Medical History Dysuria Anxiety and depression Thrush, oral Allergic rhinitis Franky's disease Goiter diffuse Cataract Glaucoma Tobacco abuse Type 2 diabetes mellitus with hyperglycemia GERD (gastroesophageal reflux disease) Obesity (BMI 30-39.9) COPD (chronic obstructive pulmonary disease) Coronary artery disease Carpal tunnel syndrome Hypercholesterolemia Hypothyroid Hypertension Surgical History Hx of section History of tubal ligation Family History Father Myocardial infarct Maternal Grandmother Breast cancer Mother Pancreatic cancer Sister Bipolar 1 disorder Other Mental problem Social History Household Members: Family Housing: House Do you presently have visiting nurse or other home services: No Alcohol intake: current Alcohol intake frequency: holidays/special occasions only Patient Tobacco Use Status: Current everyday Tobacco user Tobacco use type: Cigarette Cigarette Packs Per Day: 0.5 Cigarettes Per Day: 4 Years Smoked: 4 cigarettes a day e-Cigarette/Vaping Use: Currently Using Second Hand Smoke Exposure: Yes Advance Directives Date on File: 03/21/22 service: No Current occupational status: disabled Cognitive needs: No Hearing needs: No Vision needs: Yes Questionnaire Thrive Questionnaire Date Thrive assessed: 08/19/24 RYLAN-7 AMB Questionnaire RYLAN-7 Date RYLAN - 7 assessed: 08/19/24 Source: Developed by Drs. Ras Asif, Kim Jones, Dyllan Norris and colleagues, with an educational kosta from [email or web address]. Review of Systems Const Denies body aches, Denies chills, Denies fever(s), Denies headache(s) and Denies poor appetite Eyes Reports no additional complaints ENT Denies dysphagia, Denies dizziness, Denies headache(s) and Denies odynophagia Card Denies chest pain, Denies syncope, Denies edema, Denies irregular heart rhythm, Denies lightheadedness and Denies dyspnea Resp Denies cough and Denies dyspnea GI Denies abdominal pain, Denies constipation, Denies dysphagia, Denies diarrhea, Denies nausea, Denies odynophagia and Denies vomiting Reports no additional complaints Musc Reports no additional complaints and Denies abnormal gait Skin/Breast Reports system reviewed and no additional complaints, except as documented Neuro Denies abnormal gait, Denies dizziness, Denies syncope and Denies headache(s) Psych Reports no additional complaints Physical exam (Primary Care) Vital Signs: Last Vital Signs Temp 97.1 F 10/31/24 10:17 Pulse 71 10/31/24 10:17 BP 120/60 10/31/24 10:17 Pulse Ox 98 10/31/24 10:17 Oxygen Delivery Method Room Air 10/31/24 10:17 BMI result Body Mass Index 31.4 Tobacco/Smoking Status: Tobacco use Status Tobacco use date assessed 10/31/24 10/31/24 10:18 Patient Tobacco Use Status Current everyday Tobacco 10/31/24 10:15 Tobacco use type Cigarette 10/31/24 10:15 e-Cigarette/Vaping Use Currently Using 10/31/24 10:15 Thrive Assessment: Date of Thrive Assessment Date Thrive assessed 08/19/24 10/31/24 10:15 Const General: cooperative, healthy appearing, comfortable and no acute distress Orientation/consciousness: patient oriented x3 HENMT Head: Yes normocephalic Ears: hearing grossly normal bilaterally General nose exam: Normal external nose present Eyes General: appearance normal, both eyes and all related structures Conjunctivae: conjunctivae normal Neck Neck: Yes full ROM and Yes no lymphadenopathy Resp Effort & Inspection: normal respiratory effort Auscultation: clear to auscultation bilaterally, no crackles, no rales, no rhonchi and no wheezes Cardio Rate: regular rate Rhythm: regular rhythm GI Palpation (GI): Soft to palpation, not firm, nontender, no guarding, not rigid and No Rebound tenderness present General: Yes no CVA tenderness Back/Spine/Pelvis Back: no CVA tenderness Skin General skin exam: no rashes or lesions noted Neuro General: patient oriented x3 Gait exam (Neuro): Normal gait present Extrem General: Yes normal to inspection, Yes full ROM and No edema Psych Affect: normal affect Attitude: cooperative Insight: Good insight present (Psych) Judgement: Good judgement present (Psych) Results AMB Urinalysis Dipstick UR Leukocytes Medium Last Edit by SANAM Alicea on 10/31/24 11:25 UR Nitrite Negative Last Edit by SANAM Alicea on 10/31/24 11:25 UR Urobilinogen Normal Last Edit by SANAM Alicea on 10/31/24 11:25 UR Protein Negative Last Edit by SANAM Alicea on 10/31/24 11:25 UR Ph 5.5 Last Edit by Jimenez Xiong, RMA on 10/31/24 11:25 UR Blood Negative Last Edit by Jimenez Xiong, RMA on 10/31/24 11:25 UR Specific [place] 1.025 Last Edit by Jimenez Xiong, RMA on 10/31/24 11: 25 UR Ketone Negative Last Edit by Jimenez Xiong, RMA on 10/31/24 11:25 UR Bilirubin Negative Last Edit by Jimenez Xiong, RMA on 10/31/24 11:25 UR Glucose Negative Last Edit by Jimenez Xiong, PATRICIAA on 10/31/24 11:25 Coding Level of Care Code Est Pt Level 3 (53989) Diagnoses Bladder infection N30.90 Pre-op evaluation Z01.818 Assessment & Plan Assessment & Plan (1) Bladder infection: Code(s): N30.90 - Cystitis, unspecified without hematuria Category: Medical Plan: At this time patient is symptomatic with burning with urination and suprapubic pain. Urinalysis suspicious for UTIs it does have the presence of leukocytes. Urine culture was sent for further evaluation. Given patient's symptomatic with leukocytes in the urine plan to treat with Macrobid twice daily for 7 days. Advised patient to hold off on surgery until infection has cleared. Also obtained vaginal swab for further evaluation and rule out vaginosis. (2) Pre-op evaluation: Code(s): Z01.818 - Encounter for other preprocedural examination Category: Medical Plan: Regarding preop clearance, the patient is at moderate risk for proposed surgery due to age and comorbidities. Reviewed with the patient that no surgery is completely free of risk and that this examination is to assist the surgeon in reviewing informed consent. At this time her urine is suspicious for urinary tract infection. She will be treated with antibiotics twice daily for 7 days. Plan to postpone surgery until infection has cleared. Advised patient to reach out to her surgeon as she will be seeing him tomorrow to discuss rescheduling. Plan This note was constructed using voice recognition software. While every effort has been made to ensure accuracy and slab inspector, still areas may have been included sometimes these areas may affect the content or meeting of the given symptoms. Total time spent caring for the patient today was 20 minutes. This includes time spent before the visit reviewing the chart, time spent during the visit, and time spent after the visit and documentation. Orders: Orders AMB Urinalysis Dipstick Today R30.0 - Dysuria Urine Culture Today N30.90 - Cystitis, unspecified without hematuria Bacterial Vaginosis Panel Today R30.0 - Dysuria Medications: New nitrofurantoin monohyd/m-cryst 100 mg must administer with a meal/food 100 mg PO Q12H 7 days 14 caps 0RF
[2024-10-31 10:17] VITALS: BP 120/60; PULSE 71; TEMP 36.2; O2SAT 98; BMI 31.4
--- OUTSIDE RECORDS SUMMARY | 2024-10-31 11:10 | XMS_ITS | Data Portability ---
Author Organization [employer] [facility], [facility] Address [address] [place] [address] Care Team Providers Care Food And Drink Factory Workers Name Role Phone [facility] Referring Provider Assessment Encounter Date Assessment Date Assessment LastModified by Organization Details LastModified Time 10/22/2022 10/22/2022 I have reviewed and agree with the assessment and plan as documented by the director of research. I provided real-time medical direction for this [...] is intermediate for macrobid. Will send bactrim. [email or web address] Not available 10/25/2022 15:03:49 Plan of Treatment Reminders Order Date Submit Date Provider Last Modified By Organization Details Last Modified Time Details Appointments None recorded. Lab culture, urine 2022 023 [facility] (Centralized Electronic Ordering - All Locations), Patient Can Go To The Location Of Their Choice, [address] 3 11:11:00 [facility]inalysis , [facility] [address] [place], [address] 15:49:26 Referral None recorded. Procedures None recorded. Surgeries None recorded. Imaging None recorded. Medication Orders Macrobid 100 mg capsule 2022 023 [id number], [address], [place], [id number], 3 10:59:20 Bactrim DS 800 mg-160 mg tablet 2022 023 [facility][id number], [address], [place], [phone], 3 15:04:26 Patient TargetsNo targets recorded. Patient InstructionsNo [...] Go To The Location Of Their Choice, [address] 10/25/2022 11:11:00 10/23/19 23 10/25/2022 URINE CULTU RE tetracycline TETRAC YCLINE SUSCEP TIBLE susceptib le Not Available [facility] (Centralized Electronic Ordering - All Locations) Patient Can Go To The Location Of Their Choice, [address] 10/25/2022 11:11:00 Result Notes None recorded. Medical [...] [degF] 98 % 98 % 70 /min 69069.0 88 g 18 /min 146 mm[Hg] 76 [...] SNOMED-CT Code Diagnosis ICD10 Code Diagnosis Note 01016 Chrystal Espinosa MD Main - instED [address] [place] [address] 10/22/2022 10:52:47 10/23/2022 10:59:30 Dysuria 88211799 R30.0 Acute cystitis 26279427 N30.00 Health Concerns Section Related Observation LastModified by Organization Detai ls LastModified Time None Recorded Concern Status LastModified by Organization Details LastModified Time None Recorded Advance Directives Directive None Recorded Payers Insurance Date Sequence Insurance Name Policy Number Policy Vasquez Covered Member ID Vasquez Member ID Guarantor Name 12/15/2023 1 [facility] - DOS ON OR AFTER 2022 - DUAL ELIGIBLE - DETENTION OPTIONS AND ONE CARE (MEDICARE REPLACEMENT/ADV ANTAGE - HMO) Pina langley [id number] Pina ordoñez Notes Date Note Type Note [...] visit tomorrow 10/22. Josh Buckley MD [address] [facility],[address], [place], [address], [place] [employer], JODY 10/25/2022 15:04:26 OBGyn Episode No OBEpisode recorded.
== END 2024-10-31 11:52 | disposition home or self-care (01) ==
LOC: HO.HMCH 10:05
PROVIDERS: PCP Internal Medicine
DX: N30.90 Cystitis, unspecified without hematuria (principal); Z01.818 Encounter for other preprocedural examination; R30.0 Dysuria

== ENCOUNTER 2024-10-31 10:04 | Outpatient (REF) | payer OTHER, SELFPAY ==
[2024-10-31 16:53] LABS: Bacterial Vaginosis PCR NEGATIVE (Negative); Candida Group PCR NOT DETECTED (Not Detect); Candida glab krusei PCR NOT DETECTED (Not Detect); Trichomonas vaginalis PCR NOT DETECTED (Not Detect)
== END 2024-10-31 10:05 | disposition home or self-care (01) ==
LOC: HO.LNP 10:04
PROVIDERS: PCP Internal Medicine
DX: Z01.818 Encounter for other preprocedural examination (principal); H40.9 Unspecified glaucoma; N30.90 Cystitis, unspecified without hematuria; R30.0 Dysuria; E11.9 Type 2 diabetes mellitus without complications; I25.10 Atherosclerotic heart disease of native coronary artery without angina pectoris; E78.00 Pure hypercholesterolemia, unspecified; J44.9 Chronic obstructive pulmonary disease, unspecified; K21.9 Gastro-esophageal reflux disease without esophagitis; E03.9 Hypothyroidism, unspecified; I10 Essential (primary) hypertension; I25.2 Old myocardial infarction
CPT/HCPCS: 81002; 81515; 87086; 99212

== ENCOUNTER 2024-11-23 11:49 | Outpatient (REF) | payer OTHER, SELFPAY ==
--- OUTSIDE RECORDS SUMMARY | 2024-11-23 13:00 | XMS_ITS | Data Portability ---
Author Organization [employer] [facility] Address [address] [place] [id number] Care Team Providers Care Associate Manager Name Role Phone [facility] Referring Provider [phone] Assessment Encounter Date Assessment Date Assessment LastModified by Organization Details LastModified Time 10/22/2022 10/22/2022 I have reviewed and agree with the assessment and plan as documented by the ux developer. I provided real-time medical direction for this [...] is intermediate for macrobid. Will send bactrim. [email or web address] Not available 10/25/2022 15:03:49 Plan of Treatment Reminders Order Date Submit Date Provider Last Modified By Organization Details Last Modified Time Details Appointments None recorded. Lab culture, urine 2022 023 [facility] (Centralized Electronic Ordering - All Locations), Patient Can Go To The Location Of Their Choice, [id number] 11:11:00 urinalysis , dipstick 2022 023 [facility], [address] [place] [address], [phone] 15:49:26 Referral None recorded. Procedures None recorded. Surgeries None recorded. Imaging None recorded. Medication Orders Macrobid 100 mg capsule 2022 023 [id number], [address], [place], [phone], 10:59:20 Bactrim DS 800 mg-160 mg tablet 2022 023 [facility] #[id number], [address], [place], [phone], 15:04:26 Patient TargetsNo targets recorded. Patient InstructionsNo instructions recorded. Reason for Referral None Reported. Results Created Date Observation Date Name Description Value Unit Range Abnormal Flag Note LastModifiedBy Organization Detail LastModifiedTime 10/23/1910/22/2022 URINE CULTU RE specimen description URINE Not Available [facility] (Centralized Electronic Ordering - All Locations) Patient Can Go To The Location Of Their Choice, [id number] 10/25/2022 11:11:00 10/23/1910/22/2022 URINE CULTU RE special requests NONE Not Available [facility] (Centralized Electronic Ordering - All Locations) Patient Can Go To The Location Of Their Choice, [id number] 10/25/2022 11:11:00 10/23/1910/25/2022 URINE CULTU RE culture abnormal >100, 000 COL/M L KLEBS IELLA PNEUM ONIAE This isola te was ident ified using Maldi -TOF syste m These AST resul ts were perfo rmed on the Micro scan ID and AST syste m Not Available [facility] (Centralized Electronic Ordering - All Locations) Patient Can Go To The Location Of Their Choice, [id number] 10/25/2022 11:11:00 10/23/1910/25/2022 URINE CULTU RE report status FINAL 2022 Not Available [facility] (Centralized Electronic Ordering - All Locations) Patient Can Go To The Location Of Their Choice, [id number] 10/25/2022 11:11:00 10/23/1910/25/2022 URINE CULTU RE organism [...] Choice, 10/25/2022 11:11:00 10/23/1910/25/2022 URINE CULTU RE ampicillin AMPICI LLIN RESIST [...] Go To The Location Of Their Choice, [id number] 10/25/2022 11:11:00 10/23/19 23 10/25/2022 URINE CULTU RE tetracycline TETRAC YCLINE SUSCEP TIBLE susceptib le Not Available [facility] (Centralized Electronic Ordering - All Locations) Patient Can Go To The Location Of Their Choice, [address] 10/25/2022 11:11:00 Result Notes None recorded. Medical [...] Heart rate Body weight Respiratory rate Systolic And Diastolic Provider Name and Address Organization Details Last Updated DateTime 3 97.7 [degF] 98 % 98 % 70 /min 52125.0 88 g 18 /min 146/76 mm[Hg] Not Available [facility] - production 10:53:01 [...] SNOMED-CT Code Diagnosis ICD10 Code Diagnosis Note [id number] Chrystal Espinosa MD Main - [facility] [address] [place] [address] 10/22/2022 10:52:47 10/23/2022 10:59:30 Dysuria 12832872 R30.0 Acute cystitis 15942064 N30.00 Health Concerns Section Related Observation LastModified by Organization Detai ls LastModified Time None Recorded Concern Status LastModified by Organization Details LastModified Time None Recorded Advance Directives Directive None Recorded Payers Insurance Date Sequence Insurance Name Policy Number Policy Vasquez Covered Member ID Vasquez Member ID Guarantor Name 12/15/2023 1 [facility] - DOS ON OR AFTER 2022 - DUAL ELIGIBLE - NURSING HOME OPTIONS AND ONE CARE (MEDICARE REPLACEMENT/ADV ANTAGE - HMO) Pina langley [id number] Pina ordoñez Notes Date Note Type Note [...] visit tomorrow 10/22. Josh Buckley MD [address] [facility],[address], [place], [address], [place] - [place] 10/25/2022 15:04:26 OBGyn Episode No OBEpisode recorded.
--- OUTSIDE RECORDS SUMMARY | 2024-11-23 13:01 | XMS_ITS | Patient Health Record ---
Author Organization [facility] Address [address] [place] [address] Care Team Providers Care Security Solutions Engineer Name Role Phone Po Vicky BROCK Primary Care Provider Ras Rios [phone] Allergies Allergen (clinical drug ingredient) Drug/Non Drug [...] Problem Status W/U Status Risk Notes Problem 106697524 Encounter for screening for malignant neoplasm of colon (Z12.11) Active confirmed Problem 311875984987856 Preprocedural examination (Z01.818) Active confirmed Problem 806098885 Irregular bowel habits (R19.8) Active confirmed Problem Diverticulosis o f colon (K57.30) Active confirmed Problem [id number] History of Clostridioides difficile infection (Z86.19) Active confirmed Plan Of Treatment Future Test Test Name Order Date COLONOSCOPY 06/08/2019 COLONOSCOPY 08/07/2021 Insurance Providers Payer Name Payer Address Payer Phone Subscriber Number Group Number Insured Name Patient Relationship to Insured Coverage Start Date Coverage End Date [facility] [address] [place] [address] [id number] MARCELINA GEIGER Self - patient is the [...]
--- OUTSIDE RECORDS SUMMARY | 2024-11-23 13:01 | XMS_ITS | Patient Health Record ---
Author Organization [facility] Address [address] [facility] [place] [address] Care Team Providers Care Personal Banker Name Role Phone Vicky Whitman Primary Care Provider Ephraim Mercado Unavailable [phone] Allergies Allergen (clinical drug ingredient) Drug/Non Drug Allergy documented on EMR Reaction Allergy Type Onset Date Status Latex Latex Unknown Allergy Active Mold Unknown Allergy Active Results Component Value Reference Range Notes HEMOGLOBIN A1C (GLYCOHEMOGLO BIN) Reviewed date:08/26/2024 12:35:01 PM Interpretation: Performing Lab: Notes/Report: HEMOGLOBIN A1C % (HH) 7.0 HEMOGLOBIN A1C (GLYCOHEMOGLO BIN) Reviewed date:02/02/2024 01:38:55 PM Interpretation: Performing Lab: Notes/Report: HEMOGLOBIN A1C % (HH) 7.8 Reason For Referral No Information Medications Medication SIG (Take, Route, Frequency, Duration) Notes Start Date End Date Status Fluocinonide Active Ezetimibe 10 MG 1 tablet Orally Once a day; Duration: 30 day(s) Active Vitamin D3 Active Estradiol Active Timolol Maleate 0.5 % 1 drop into affect ed eye Ophthalmic Once a day Active Betamethasone Active Salicylic Acid 3 % 1 application Externally Twice a day Active Atorvastatin Calcium 80 MG 1 tablet Orally Once a day; Duration: 30 day(s) Active Nitroglycerin Active Aspirin 81 Active Metoprolol Succinate 25 MG 1 capsule Orally Once a day; Duration: 30 day(s) Active Proventil HFA Not-Ta wendy Myrbetriq 50 MG 1 tablet Orally Once a day Active metFORMIN HCl Active oxyBUTYnin Not-Takin g Lisinopril Active Gabapentin Not-Takin g Lactulose 10 GM 1 packet Orally Once a day; Duration: 30 day(s) Active Breo Ellipta 200-25 MCG/INH [...] affected area Externally to feet Twice a day; Duration: 30 days Active Zioptan 0.0015 % 1 [...] Problem Acquired hammer toe of right foot (3669139110788782 ) Other hammer toe(s) (acquired), right foot (M20.41) Active confirmed Response to treatment, Improvemen t Problem Acquired hammer toe of left foot (7454207500271944 ) Other hammer toe(s) (acquired), left foot (M20.42) Active confirmed Response to treatment, Improvemen t Problem Polyneuropathy due to type 2 diabetes mellitus (359099584) Type 2 diabetes mellitus with diabetic polyneuropathy (E11.42) Active confirmed Vital Signs Blood pressure diastolic 81 mm Hg 08/26/2024 Height 5ft in 08/26/2024 Blood pressure systolic 133 mm Hg 08/26/2024 Weight 162 lbs 08/26/2024 BMI 31.64 kg/m2 08/26/2024 Procedures Procedure Date Ordered Date Performed Result Body Sit e 66367-YAAJDCZ NAIL, 6 OR MORE 02/02/2024 N/A 62104-WIRO SKIN LESIONS, OVER 4 02/02/2024 N/A 19260-WZMMJGA NAIL, 6 OR MORE 08/26/2024 N/A 04307-DZZM SKIN LESIONS, OVER 4 08/26/2024 N/A Encounters Encounter Location Date Provider Diagnosis [address] [address] 02/02/2024 Ephraim Fuentes Type 2 diabetes mellitus with diabetic polyneuropathy E11.42 and Tinea unguium B35.[address] [address] 08/26/2024 Ephraim Fuentes Type 2 diabetes mellitus with diabetic polyneuropathy E11.42 ; Tinea unguium B35.1 ; Other hammer toe(s) (acquired), right foot M20.41 and Other hammer toe(s) (acquired), left foot M20.[address] [address] 05/04/2024 Ephraim Fuentes [address] [address] 08/16/2024 Ephraim Fuentes Assessments Encounter Date Diagnosis [...] Treatment Pending Test Test Name Order Date 53255-VTNUCGQ NAIL, 6 OR MORE 09/11/2020 29416-PHGLDSA NAIL, 6 OR MORE 12/25/2020 75853-GCOFYYE NAIL, 6 OR MORE 07/31/2021 59126-MDGDTWT NAIL, 6 OR MORE 11/20/2021 22488-KHETEOB NAIL, 6 OR MORE 01/31/2022 62158-WPCAUWM NAIL, 6 OR MORE 04/25/2022 50103-DVRGTEA NAIL, 6 OR MORE 08/29/2022 90398-CDWEDJX NAIL, 6 OR MORE 11/14/2022 02431-TSBDQKH NAIL, 6 OR MORE 03/24/2023 49496-LFYMMJV NAIL, 6 OR MORE 11/23/2023 06402-LHPYNHE NAIL, 6 OR MORE 02/02/2024 31473-MJHCMAJ NAIL, 6 OR MORE 08/26/2024 17412-GHJL SKIN LESIONS, OVER 4 08/27/19 25 41774-NROI SKIN LESIONS, OVER 4 02/02/20 24 46750-DIIF SKIN LESIONS, OVER 4 11/23/19 24 54467-VJQA SKIN LESIONS, OVER 4 03/24/20 23 81341-FSDB SKIN LESIONS, OVER 4 11/15/19 23 60606-RKHR SKIN LESIONS, OVER 4 08/30/19 23 46743-GOBT SKIN LESIONS, OVER 4 04/25/20 22 37533-ARLS SKIN LESIONS, OVER 4 02/01/20 22 66682-ZHTM SKIN LESIONS, OVER 4 11/21/19 22 05926-WHUO SKIN LESIONS, OVER 4 08/01/19 22 76406-NEHR SKIN LESIONS, 2 TO 4 12/26/19 21 Next Appt Details Provider Name:Ephraim Fuentes , 12/06/2024 01:45:00 PM, [address] [place] [address], [phone], Insurance Providers Payer Name Payer Address Payer Phone Subscriber Number Group Number Insured Name Patient Relationship to Insured Coverage Start Date Coverage End Date [facility] [employer] Claims [address] [place] [id number] Pina Gaytan Self - patient is the insured Medical (General) History Medical History History ICD Code Angina Anxiety Arthritis Back,Hip,and Knee pain CAD (Cholesterol) Cataracts Depression Diabetic border line Glaucoma Heart disease High blood pressure Chicken pox Measles Mumps thyroid UTI's Diabetes type ll Surgical History Surgery Date(Month/Year) 1988,1993 Stent/implant R eye 06/2015 cataract surgery Hospitalization History Reason Date(Month/Year) [facility] [place]ush mouth from [place] marthata-1 we ek given steroids 03/19/2022
[2024-11-23 16:19] LABS: Appearance Urine Cloudy; Glucose Urine UA Negative (Negative); PH 5.5 (5.0-9.0); Specific Gravity - Urine 1.020 (1.005-1.025); UMIC TRIGGER UACC YES
[2024-11-23 16:43] LABS: UACC Culture Trigger YES
== END 2024-11-23 11:50 | disposition home or self-care (01) ==
LOC: HO.HMGCLDS 11:49
PROVIDERS: PCP Internal Medicine; Visit Provider Nurse Practitioner Family
DX: N34.2 Other urethritis (principal)
CPT/HCPCS: 81001; 87086; 87088; 87186

== ENCOUNTER 2024-12-15 11:45 | Outpatient (AMB) | payer OTHER, SELFPAY ==
[2024-12-15 11:48] VITALS: BP 128/60; PULSE 65; RESP 18; TEMP 36.1; O2SAT 97; BMI 31.4
--- NOTE | 2024-12-15 11:48 | MHC.PC.OV ---
Vital Signs 12/15/24 11:48 Height 5 ft 1 in Weight 166 lb 4 oz BMI 31.4 BP 128/60 Blood Pressure Location Lt brachial Position Sitting Respiration 18 Pulse 65 Pulse Source Pulse Oximeter Temp 97.0 F Temp Source Temporal Artery Scan Pulse Oximetry (%) 97 Oxygen Delivery Method Room Air Intake Visit Reasons: Follow Up Allergies LATEX Allergy (Intermediate, Verified 12/15/24 11:50) rash MOLD Allergy (Intermediate, Verified 12/15/24 11:50) rash NONORGANIC FOOD Allergy (Intermediate, Verified 12/15/24 11:50) diarrhea Yeast Allergy (Intermediate, Verified 12/15/24 11:50) Diarrhea empagliflozin (From [employer]) Adverse Reaction (Intermediate, Verified 12/15/24 11:50) Vaginal candidiasis Medication List - Last Reconciled 12/15/24 by Vicky Whitman, albuterol sulfate 90 mcg/actuation (Proventil HFA) 2 puffs inhalation Q6H PRN ammonium lactate 12% 1 appl topical BID aspirin (Adult Low Dose Aspirin) 81 mg PO DAILY atorvastatin 80 mg PO DAILY [BEDSIDE COMMODE As directed] betamethasone dipropionate 0.05% apply to hands twice daily Breo Ellipta 200-25 mcg/dose (fluticasone furoate-vilanterol) 1 ea PO DAILY NS cholecalciferol (vitamin D3) 25 mcg PO DAILY clonazepam 1 mg PO Q8H [commode As directed] [diabetic shoes As directed] [Disposable liners/shield/pad As directed] estradiol 0.01%(0.1mg/gram) vaginally 3 times a week; pea sized amount to urethra 3 times a week 30 days ezetimibe (Zetia) 10 mg PO BEDTIME fexofenadine (Paulette Allergy) 180 mg PO DAILY flash glucose scanning reader (FreeStyle [place] 2 [place]) As directed flash glucose sensor (FreeStyle Dany 2 Sensor kit) As directed fluticasone propionate 50 mcg/actuation 2 sprays intranasal DAILY gabapentin 100 mg PO BEDTIME [GRABBER TOOL As directed] hydrocortisone 2.5% (Proctosol HC) 1 appl FL BID-QID PRN incontinence pad, liner, disp 8 pads per day [id number] Contour Plus BC pad , Inco, Max, swo incontinence pad, liner, disp As directed [incontinent wipes As directed] lactulose 15 mL PO DAILY 90 days levothyroxine 100 mcg PO DAILY [LIFT RECLINER As directed] lisinopril 30 mg PO DAILY 90 days metformin 1,000 mg PO BID 90 days metoprolol succinate ER 25 mg PO DAILY mirabegron ER (Myrbetriq) 50 mg PO DAILY miscellaneous medical supply As directed nicotine (polacrilex) 2 mg buccal Q2H nitroglycerin 0.4 mg sublingual Q5M PRN 30 days nystatin (Nystop) 1 appl topical BID nystatin 2 mL PO TID 15 days oxycodone 5 mg PO BID 30 days [Pad bladder ultra As directed 8 times day ] tafluprost (PF) 0.0015% (Zioptan (PF)) 1 drp ophthalmic (eye) QPM timolol maleate (PF) 0.5% 1 drp ophthalmic (eye) BID tirzepatide (Mounjaro) 2.5 mg (0.5 mL) subcut QWEEK venlafaxine ER 75 mg PO BEDTIME [WIPES As directed] Tobacco use date assessed: 12/15/24 Fall risk assessment: No Falls in past year Last assessed Fall Risk: 12/15/24 Dental Screening Dental Screen Date: 12/15/24 Did you have a dental visit in the last 12 months?: Yes Did you have a dental problem in the last 6 months where you did not have access to dental care?: No Was dental information given to patient?: Patient has dentist [facility] Medical History Dysuria Anxiety and depression Thrush, oral Allergic rhinitis Franky's disease Goiter diffuse Cataract Glaucoma Tobacco abuse Type 2 diabetes mellitus with hyperglycemia GERD (gastroesophageal reflux disease) Obesity (BMI 30-39.9) COPD (chronic obstructive pulmonary disease) Coronary artery disease Carpal tunnel syndrome Hypercholesterolemia Hypothyroid Hypertension Surgical History Hx of section History of tubal ligation Family History Father Myocardial infarct Maternal Grandmother Breast cancer Mother Pancreatic cancer Sister Bipolar 1 disorder Other Mental problem Social History Household Members: Family Housing: House Do you presently have visiting nurse or other home services: No Alcohol intake: current Alcohol intake frequency: holidays/special occasions only Patient Tobacco Use Status: Current everyday Tobacco user Tobacco use type: Cigarette Cigarette Packs Per Day: 0.5 Cigarettes Per Day: 4 Years Smoked: 4 cigarettes a day e-Cigarette/Vaping Use: Currently Using Second Hand Smoke Exposure: Yes Advance Directives Date on File: 03/21/22 service: No Current occupational status: disabled Cognitive needs: No Hearing needs: No Vision needs: Yes Questionnaire PHQ-9 Over the last 2 weeks, how often have you been bothered by any of the following problems? 1. Little interest or pleasure in doing things: not at all 2. Feeling down, depressed, or hopeless: not at all 3. Trouble falling or staying asleep, or sleeping too much: several days 4. Feeling tired or having little energy: several days 5. Poor appetite or overeating: not at all 6. Feeling bad about yourself - or that you are a failure or have let yourself or your family down: not at all 7. Trouble concentrating on things, such as reading the newspaper or watching television: not at all 8. Moving or speaking so slowly that other people could have noticed. Or the opposite - being so fidgety or restless that you have been moving around a lot more than usual: not at all 9. Thoughts that you would be better off or of hurting yourself in some way: not at all Total score: 2 Source: Developed by Drs. Ras Asif, Kim Jones, Dyllan Norris and colleagues, with an educational kosta from [email or web address]. Thrive Questionnaire Date Thrive assessed: 08/19/24 I am a: Patient What is your living situation today?: I have a steady place to live Within the past 12 months, did the food you bought not last and you didn't have the money to get more?: Sometimes True Within the past 12 months, did you worry whether your food would run out before you got money to buy more?: Sometimes True Do you have trouble paying for medicines?: No Do you have trouble getting transportation to medical appointments?: No Do you have trouble paying your heating and electricity bill?: No Do you have trouble taking care of your child, family member or friend?: No Do you have trouble with day-to-day activities such as bathing, preparing meals, shopping, managing finances, etc.?: Yes Are you currently unemployed and looking for a job?: I choose not to answer this question Are you interested in more education?: No Please select the resources that you would like help with: None Currently or been in a relationship where the following occur: No concerns reported THRIVE Score: 2 AUDIT C Alcohol Use Questionnaire (AUDIT-C) 1. How often do you have a drink containing alcohol?: Never 3. How often do you have six or more drinks on one occasion?: Never Total Score: 0 RYLAN-7 AMB Questionnaire RYLAN-7 Date RYLAN - 7 assessed: 08/19/24 Feeling nervous, anxious, or on edge: 1 = Several days Not being able to stop or control worryin = Not at all Worrying too much about different things: 1 = Several days Trouble relaxin = Several days Being so restless that it is hard to sit still: 0 = Not at all Becoming easily annoyed or irritable: 0 = Not at all Feeling afraid as if something awful might happen: 0 = Not at all Total RYLAN-7 score (0-4 normal; 5-9 mild; 10-14 moderate; 15-21 severe): 3 Source: Developed by Drs. Ras Asif, Kim Jones, Dyllan Norris and colleagues, with an educational kosta from [email or web address]. Physical exam (Primary Care) Vital Signs: Last Vital Signs Temp 97.0 F 12/15/24 11:48 Pulse 65 12/15/24 11:48 Resp 18 12/15/24 11:48 BP 128/60 12/15/24 11:48 Pulse Ox 97 12/15/24 11:48 Oxygen Delivery Method Room Air 12/15/24 11:48 BMI result Body Mass Index 31.4 Tobacco/Smoking Status: Tobacco use Status Tobacco use date assessed 12/15/24 12/15/24 11:53 Patient Tobacco Use Status Current everyday Tobacco 12/15/24 11:53 Tobacco use type Cigarette 12/15/24 11:53 e-Cigarette/Vaping Use Currently Using 12/15/24 11:53 PHQ-9: PHQ-9 Score PHQ-9: Total score 2 12/15/24 12:28 Thrive Assessment: Date of Thrive Assessment Date Thrive assessed 08/19/24 12/15/24 11:53 Currently or been in a relationship where the following occur: No concerns reported Const General: alert; No acute distress Eyes Conjunctivae: conjunctivae normal Resp Auscultation: clear to auscultation bilaterally Cardio Rate: regular rate Rhythm: regular rhythm GI Inspection: Yes normal to inspection Extrem General: Yes normal to inspection and No edema Results AMB Hemoglobin A1c AMB Hemoglobin A1c 7.2 % Last Edit by Amadna Parker CMA on 12/15/24 11:56 Results Reviewed Results Reviewed: Laboratory Last Values Hgb A1c (Clinic) 7.2 % (4.0-6.0) H 12/15/24 11:53 Coding Level of Care Code Est Pt Level 4 (75013) Complex EM visit Add On G2211 Diagnoses Type 2 diabetes mellitus with hyperglycemia, without long-term current use of insulin E11.65 Diabetes mellitus remote computer terminal operator insulin use: without senior care use Hypercholesterolemia E78.00 Coronary artery disease involving tribal coronary artery of tribal heart without angina pectoris I25.10 Associated angina: without angina Coronary Disease-Associated Artery/Lesion type: tribal artery [place] vs. transplanted heart: tribal heart Essential hypertension I10 Hypertension type: essential hypertension Generalized anxiety disorder F41.1 Acquired hypothyroidism E03.9 Hypothyroidism type: acquired Gastroesophageal reflux disease without esophagitis K21.9 Esophagitis presence: without esophagitis Pulmonary emphysema, unspecified emphysema type J43.9 COPD type: emphysema Emphysema type: unspecified Tobacco abuse Z72.0 Assessment & Plan Assessment & Plan (1) Type 2 diabetes mellitus with hyperglycemia: Comment: Dr. Mujica and Dr. Zaldivar Code(s): E11.65 - Type 2 diabetes mellitus with hyperglycemia Category: Medical Qualifiers: Diabetes mellitus remote computer terminal operator insulin use: without remote computer terminal operator use Qualified Code(s): E11.65 - Type 2 diabetes mellitus with hyperglycemia Plan: Decrease the amount of carbohydrate intake, pasta, bread, rice and potatoes are all sugar and that is aside from all the sweet stuff, remember that fruits are good but they are Sweet also. Hemoglobin A1c goal of less than 6.5 patient is on metformin a 1000 mg twice a day (2) Hypercholesterolemia: Code(s): E78.00 - Pure hypercholesterolemia, unspecified Category: Medical Plan: Avoid fried foods, chicken skin, eggs, butter margarine, pastries and meat. Be it pork or beef they have a lot of cholesterol LDL goal of less than 70 and triglyceride of less than 150 patient on Zetia and atorvastatin 80 (3) Coronary artery disease: Comment: Echo April 2019 normal LV Pseudonormal filling, pericardial effusion July 2019 moderate pericardial effusion PCI done [facility] June 2015 Code(s): I25.10 - Atherosclerotic heart disease of tribal coronary artery without angina pectoris Category: Medical Qualifiers: Associated angina: without angina Coronary Disease-Associated Artery/Lesion type: tribal artery [place] vs. transplanted heart: tribal heart Qualified Code(s): I25.10 - Atherosclerotic heart disease of tribal coronary artery without angina pectoris Plan: Control the cholesterol, weight, blood pressure, diabetes patient is on aspirin 81 mg once a day (4) Hypertension: Code(s): I10 - Essential (primary) hypertension Category: Medical Qualifiers: Hypertension type: essential hypertension Qualified Code(s): I10 - Essential (primary) hypertension Plan: Continue with blood pressure medication. Decrease salt intake and exercise patient is taking lisinopril 30 mg once a day metoprolol 25 mg once a day (5) Generalized anxiety disorder: Comment: Living [facility] counselling Code(s): F41.1 - Generalized anxiety disorder Category: Medical Plan: Continue with counseling and therapy (6) Hypothyroid: Code(s): E03.9 - Hypothyroidism, unspecified Category: Medical Qualifiers: Hypothyroidism type: acquired Qualified Code(s): E03.9 - Hypothyroidism, unspecified Plan: Continue with thyroid medication (7) GERD (gastroesophageal reflux disease): Code(s): K21.9 - Gastro-esophageal reflux disease without esophagitis Category: Medical Qualifiers: Esophagitis presence: without esophagitis Qualified Code(s): K21.9 - Gastro-esophageal reflux disease without esophagitis Plan: Avoid the foods that causes that usually spicy foods, tomato products, juices, coffee, soda and foods that your sensitive to. After eating do not lie down, allow 3-4 hours before in lie down. And keep the head of bed above 30 degrees to avoid the acid from going up. (8) COPD (chronic obstructive pulmonary disease): Comment: Chronic, mild to moderate COPD, and she also has moderate degree of restrictive disorder. Overall it is staying stable. Code(s): J44.9 - Chronic obstructive pulmonary disease, unspecified Category: Medical Qualifiers: COPD type: emphysema Emphysema type: unspecified Qualified Code(s): J43.9 - Emphysema, unspecified Plan: Patient is strongly advised to stop smoking. On albuterol inhaler and Breo (9) Tobacco abuse: Comment: SHE CONTINUES TO SMOKE ABOUT 4-5 CIGARETTES A DAY. COUNSELED THAT SHE SHOULD STOP SMOKING COMPLETELY . . HER COUGH AND CONGESTED FEELING IN THE UPPER AIRWAYS IS MOSTLY SECONDARY TO SMOKING. SHE IS TRYING HER BEST TO CUT DOWN THE NUMBER OF CIGARETTES. Code(s): Z72.0 - Tobacco use Category: Medical Plan: Patient is strongly advised to stop smoking Plan History of Present Illness The patient is a 69-year-old female presenting for a follow-up visit for multiple chronic conditions and management of an overactive bladder. The patient has a history of hypertension, hypothyroidism, hypercholesterolemia, coronary artery disease, chronic obstructive pulmonary disease, gastroesophageal reflux disease, and diabetes mellitus. She is currently on metformin 1000 mg twice a day for diabetes management, with a hemoglobin A1c of 7.2%. Her LDL cholesterol was last recorded at 44 mg/dL in March 2024, which is within the target range. The patient has a history of smoking and is currently advised to quit due to its impact on her health, including her upcoming eye surgery. She is on atorvastatin 80 mg for cholesterol management and aspirin 81 mg daily for coronary artery disease. The patient has a history of generalized anxiety disorder and follows up with counseling and therapy. She also has a history of tubular adenoma of the colon, with the last colonoscopy performed in September 2021. The patient reports an overactive bladder and is scheduled for Botox treatment on February 03. She has been experiencing frequent bladder infections and is under the care of a urologist. Health Maintenance - Mammogram is up to date - Last colonoscopy in September 2021 for tubular adenoma - Scheduled for Botox treatment for overactive bladder on February 03 - Advised to quit smoking due to health risks Social History - Substance Use: Patient is a smoker and has been advised to quit. - Nutrition: Patient discusses dietary habits including consumption of salads, oatmeal, and avoidance of fast foods. Review of Systems - Cardiovascular: Denies chest pain, reports history of coronary artery disease. - Respiratory: Reports history of COPD, advised to stop smoking. - Gastrointestinal: Reports history of GERD, no current symptoms reported. - Genitourinary: Reports overactive bladder, frequent bladder infections. - Endocrine: Reports diabetes mellitus, hemoglobin A1c of 7.2%. - Musculoskeletal: Reports osteoarthritis, no acute symptoms reported. - Neurological: Denies neuropathy symptoms, reports use of gabapentin for nerve pain. - Psychiatric: Reports generalized anxiety disorder, follows up with therapy. Physical Exam Results - Labs: Hemoglobin A1c 7.2%, LDL cholesterol 44 mg/dL, normal blood count, normal electrolytes, good renal function. Plan The patient will continue on metformin 1000 mg twice a day for diabetes management, with a goal to reduce hemoglobin A1c to less than 6.5%. She is advised to maintain her current atorvastatin 80 mg for cholesterol management, with an LDL goal of less than 70 mg/dL. For coronary artery disease, the patient will continue aspirin 81 mg daily. Blood pressure management includes lisinopril 30 mg and metoprolol 25 mg daily. The patient is strongly advised to quit smoking, and nicotine gum has been prescribed to aid cessation. She is scheduled for Botox treatment for overactive bladder on February 03 and will follow up with her urologist. A request for fasting blood work has been made to monitor thyroid function and other parameters, to be completed in three to four months. Patient was informed and verbally consented to the use of an ambient scribe for clinic note documentation during this visit. Discussion Notes During the visit, I discussed with the patient the importance of managing her diabetes with metformin and the potential addition of injectable medications if necessary. We reviewed her cholesterol management with atorvastatin and the need to maintain her LDL levels below 70 mg/dL. I emphasized the importance of quitting smoking and prescribed nicotine gum to assist with cessation. We also discussed her upcoming Botox treatment for overactive bladder and the need for follow-up with her urologist. I advised her to complete fasting blood work in three to four months to monitor her thyroid function and other health parameters. Patient Instructions - Continue taking metformin 1000 mg twice daily for diabetes management. - Maintain atorvastatin 80 mg daily for cholesterol management. - Take aspirin 81 mg daily for coronary artery disease. - Continue lisinopril 30 mg and metoprolol 25 mg daily for blood pressure control. - Use nicotine gum as prescribed to aid in smoking cessation. - Attend scheduled Botox treatment for overactive bladder on February 03. - Complete fasting blood work in three to four months as requested. Orders: Orders Comprehensive Met. Panel 3 Months E11.65 - Type 2 diabetes mellitus with hyperglycemia Lipid Panel 3 Months E11.65 - Type 2 diabetes mellitus with hyperglycemia, E78.00 - Pure hypercholesterolemia, unspecified Vitamin B12 and Folate 3 Months E11. - Type 2 diabetes mellitus with hyperglycemia Creatinine Urine 3 Months E11.65 - Type 2 diabetes mellitus with hyperglycemia UA CC w/rflx Micro + Cult 3 Months E11.65 - Type 2 diabetes mellitus with hyperglycemia, R30.0 - Dysuria AMB Hemoglobin A1c Today Z13.9 - Encounter for screening, unspecified Complete Blood Count Auto Diff 3 Months E11. - Type 2 diabetes mellitus with hyperglycemia Free T4 (Free Thyroxine) 3 Months E11. - Type 2 diabetes mellitus with hyperglycemia Thyroid Stimulating Hormone 3 Months E11. - Type 2 diabetes mellitus with hyperglycemia Vitamin D 25-OH Total 3 Months E11. - Type 2 diabetes mellitus with hyperglycemia Microalbumin, Random (w Creat) 3 Months E11. - Type 2 diabetes mellitus with hyperglycemia Hemoglobin A1c 3 Months E11.65 - Type 2 diabetes mellitus with hyperglycemia Medications: New tirzepatide (Mounjaro) for 4 weeks 2.5 mg (0.5 mL) subcut QWEEK 2 mL 2RF E11.65 - Type 2 diabetes mellitus with hyperglycemia clotrimazole 1% 1 appl topical BID 45 grams 0RF 4 weeks E11.65 - Type 2 diabetes mellitus with hyperglycemia Refilled nystatin (Nystop) 1 appl topical BID 60 grams 4RF B37.2 - Candidiasis of skin and nail hydrocortisone 2.5% (Proctosol HC) 1 appl FL BID-QID PRN 30 grams 1RF hemorrhoids K64.9 - Unspecified hemorrhoids nicotine (polacrilex) 2 mg buccal Q2H 120 ea 0RF E11.65 - Type 2 diabetes mellitus with hyperglycemia
--- OUTSIDE RECORDS SUMMARY | 2024-12-15 12:24 | XMS_ITS | Patient Health Record ---
Author Organization [facility] Address [address] [place] [id number] Care Team Providers Care Clinical Research Scientist Name Role Phone Po Vicky BROCK Primary Care Provider Ras Rios [phone] Allergies Allergen (clinical drug ingredient) Drug/Non Drug [...] Problem Status W/U Status Risk Notes Problem [id number] Encounter for screening for malignant neoplasm of colon (Z12.11) Active confirmed Problem [id number] Preprocedural examination (Z01.818) Active confirmed Problem [id number] Irregular bowel habits (R19.8) Active confirmed Problem Diverticulosis of colon (421102823) Diverticulosis of colon (K57.30) Active confirmed Problem [id number] History of Clostridioides difficile infection (Z86.19) Active confirmed Plan Of Treatment Future Test Test Name Order Date COLONOSCOPY 06/08/2019 COLONOSCOPY 08/07/2021 Insurance Providers Payer Name Payer Address Payer Phone Subscriber Number Group Number Insured Name Patient Relationship to Insured Coverage Start Date Coverage End Date [facility] [address] [place] [phone] [id number] MARCELINA GEIGER Self - patient is the insured Medical (General) History Medical History History ICD Code Denies CVA,renal disease COPD IA--s/p stent placement in 2015 Hypertension Glaucoma Neg [...]
--- OUTSIDE RECORDS SUMMARY | 2024-12-15 12:24 | XMS_ITS | Patient Health Record ---
[facility] Address [address] [place] [address] Care Team Providers Care Baking Powder Mixer Name Role Phone Vicky Whitman Primary Care Provider Ephraim Mercado Unavailable [phone] Allergies Allergen (clinical drug ingredient) Drug/Non Drug [...] Duration) Notes Start Date End Date Status Estradiol Active Timolol Maleate 0.5 % 1 drop into affect ed eye Ophthalmic Once a day Active Betamethasone Active Salicylic Acid 3 % 1 application Externally Twice a day Active Fluocinonide Active Zioptan 0.0015 % 1 drop into affected eye in the evening Ophthalmic Once a day Active Ezetimibe 10 MG 1 tablet Orally Once a day; Duration: 30 day(s) Active Vitamin D3 Active metFORMIN HCl Active oxyBUTYnin Not-Takin g Gabapentin Not-Takin g Atorvastatin Calcium 80 MG 1 tablet Orally Once a day; Duration: 30 day(s) Active Nitroglycerin Active Aspirin 81 Active Metoprolol Succinate 25 MG 1 capsule Orally Once a day; Duration: 30 day(s) Active Proventil HFA Not-Ta wendy Myrbetriq 50 MG 1 tablet Orally Once a day Active Levothyroxine Sodium 100 MCG 1 tablet in the morning on an empty stomach Orally Once a day Active Breo Ellipta 200-25 MCG/INH 1 puff Inhalation Once a day Active Hydrocortisone Activ e Ammonium Lactate 12 % 1 application to affected area Externally to feet Twice a day; Duration: 30 days Active Lisinopril Active Lactulose 10 GM 1 packet Orally Once a day; Duration: 30 day(s) Active Extra Depth Orthopedic Shoes (1 Pair) with Customized Heat Molded Multidensity Innersoles (3 Pair) as directed Dx: NIDDM/Polyneuropathy (E11.42), Hammertoe Foot Deformity (M20.41,M20.42), Preulcerative Skin Lesion(s) (L85.1 Active Immunizations Vaccine Route Administration Date Status Comme nts Influenza Unknown 02/19/2020 Administered Influenza Unknown 02/16/2024 Administered COVID-19 Pfizer BioNTech Vaccine Unknown 10/25/2020 Administered 1st 10/04/2020 Social History Tobacco Use: Social History Observation [...] l cigarette smoker (less than 1 cig/day) AUDIT-C (Standard) Question Answer Notes Did you have a drink containing alcohol in the p ast year? No Points 0 Interpretation Negative Problems Problem Type SNOMED Code ICD Code Onset Dates Problem Status W/U Status Risk Notes Problem Acquired hammer toe of right foot (0084926710968867 ) Other hammer toe(s) (acquired), right foot (M20.41) Active confirmed Response to treatment, Improvemen t Problem Acquired hammer toe of left foot (2880078170411180 ) Other hammer toe(s) (acquired), left foot (M20.42) Active confirmed Response to treatment, Improvemen t Problem Polyneuropathy due to type 2 diabetes mellitus (961185751) Type 2 diabetes mellitus with diabetic polyneuropathy (E11.42) Active confirmed Vital Signs Blood pressure diastolic 60 mm Hg 12/06/2024 Height 5ft in 12/06/2024 Blood pressure systolic 130 mm Hg 12/06/2024 Weight 162 lbs 12/06/2024 BMI 31.64 kg/m2 12/06/2024 Procedures Procedure Date Ordered Date Performed Result Body Sit e 83838-GRTTLGS NAIL, 6 OR MORE 02/02/2024 N/A 93742-YCRX SKIN LESIONS, OVER 4 02/02/2024 N/A 47280-VLBSMQJ NAIL, 6 OR MORE 08/26/2024 N/A 69632-QWGJ SKIN LESIONS, OVER 4 08/26/2024 N/A 45404-ZULTNDC NAIL, 6 OR MORE 12/06/2024 N/A 95901-VJUJ SKIN LESIONS, OVER 4 12/06/2024 N/A Encounters Encounter Location Date Provider Diagnosis [address] [address] 02/02/2024 Ephraim Fuentes Type 2 diabetes mellitus with diabetic polyneuropathy E11.42 and Tinea unguium B35.[address] [address] 08/26/2024 Ephraim Fuentes Type 2 diabetes mellitus with diabetic polyneuropathy E11.42 ; Tinea unguium B35.1 ; Other hammer toe(s) (acquired), right foot M20.41 and Other hammer toe(s) (acquired), left foot M20.[address] [address] 12/06/2024 Ephraim Fuentes Type 2 diabetes mellitus with diabetic polyneuropathy E11.42 and Tinea unguium B35.[address] [address] 05/04/2024 Ephraim Fuentes [address] [address] 08/16/2024 Ephraim Fuentes Assessments Encounter Date Diagnosis (ICD Code) Assessment Notes Treatment Notes Treatment Clinical Notes Section Notes 02/02/2024 Type 2 diabetes mellitus with diabetic polyneuropathy (ICD-10 - E11.42) 02/02/2024 Tinea unguium (ICD-10 - B35.1) 08/26/2024 Type 2 diabetes mellitus with diabetic polyneuropathy (ICD-10 - E11.42) 08/26/2024 Tinea unguium (ICD-10 - B35.1) 12/06/2024 Type 2 diabetes mellitus with diabetic polyneuropathy (ICD-10 - E11.42) 12/06/2024 Tinea unguium (ICD-10 - B35.1) 08/26/2024 Other hammer toe(s) (acquired), right foot (ICD-10 - M20.41) Patient Educated with: DIABETIC FOOT CARE INSTRUCTIONS. pdf (DIABETIC FOOT CARE INSTRUCTIONS. pdf) 08/26/2024 Other hammer toe(s) (acquired), left foot (ICD-10 - M20.42) Plan Of Treatment Pending Test Test Name Order Date 66491-WUAMLVF NAIL, 6 OR MORE 09/11/2020 40781-SGZCXNH NAIL, 6 OR MORE 12/25/2020 75680-RFSCKLT NAIL, 6 OR MORE 07/31/2021 93816-GZQFTDA NAIL, 6 OR MORE 11/20/2021 62568-UVAVINT NAIL, 6 OR MORE 01/31/2022 47645-LTHSKNL NAIL, 6 OR MORE 04/25/2022 53216-CPYIZZU NAIL, 6 OR MORE 08/29/2022 15023-ZMIVPAA NAIL, 6 OR MORE 11/14/2022 62744-TPSDMCP NAIL, 6 OR MORE 03/24/2023 24582-PRJWMHP NAIL, 6 OR MORE 11/23/2023 86319-PGFKFLV NAIL, 6 OR MORE 02/02/2024 75106-BGXFWFT NAIL, 6 OR MORE 08/26/2024 48449-MDJEKFX NAIL, 6 OR MORE 12/06/2024 73070-XOJT SKIN LESIONS, OVER 4 12/07/19 25 34599-ASXT SKIN LESIONS, OVER 4 08/27/19 25 52691-NMNI SKIN LESIONS, OVER 4 02/02/20 24 32161-TALO SKIN LESIONS, OVER 4 11/23/19 24 16078-VXLG SKIN LESIONS, OVER 4 03/24/20 23 51134-XQZS SKIN LESIONS, OVER 4 11/15/19 23 83440-ZTFZ SKIN LESIONS, OVER 4 08/30/19 23 79862-XXAO SKIN LESIONS, OVER 4 04/25/20 22 87180-ZGDA SKIN LESIONS, OVER 4 02/01/20 22 43632-AYUU SKIN LESIONS, OVER 4 11/21/19 22 75120-NVPW SKIN LESIONS, OVER 4 08/01/19 22 09803-HAKJ SKIN LESIONS, 2 TO 4 12/26/19 21 Next Appt Details Provider Name:Ephraim Fuentes , 03/10/2025 11:15:00 AM, [address] [place] [address], [phone], Insurance Providers Payer Name Payer Address Payer Phone Subscriber Number Group Number Insured Name Patient Relationship to Insured Coverage Start Date Coverage End Date [facility] CCA SCO Claims [address] [place] [id number] Pina Gaytan Self - patient is the insured Medical (General) History Medical History History ICD Code Angina Anxiety Arthritis Back,Hip,and Knee pain CAD (Cholesterol) Cataracts Depression Diabetic border line Glaucoma Heart disease High blood pressure Chicken pox Measles Mumps thyroid UTI's Diabetes type ll Surgical History Surgery Date(Month/Year) 1988,1993 Stent/implant R eye 06/2015 cataract surgery Hospitalization History Reason Date(Month/Year) [facility] [place] -thrush mouth from [facility]-1 we ek given steroids 03/19/2022
== END 2024-12-15 12:51 | disposition home or self-care (01) ==
LOC: HO.HMCH 11:46
PROVIDERS: PCP Internal Medicine; Visit Provider Internal Medicine
DX: E11.65 Type 2 diabetes mellitus with hyperglycemia (principal); J43.9 Emphysema, unspecified; E78.00 Pure hypercholesterolemia, unspecified; I25.10 Atherosclerotic heart disease of native coronary artery without angina pectoris; I10 Essential (primary) hypertension; F41.1 Generalized anxiety disorder; E03.9 Hypothyroidism, unspecified; K21.9 Gastro-esophageal reflux disease without esophagitis; Z72.0 Tobacco use

== ENCOUNTER → 2024-12-15 11:45 | Outpatient (BNVA) | payer OTHER, SELFPAY | PROVIDERS: PCP Internal Medicine; Visit Provider Internal Medicine | DX: E11.65 Type 2 diabetes mellitus with hyperglycemia (principal); E78.00 Pure hypercholesterolemia, unspecified; I25.10 Atherosclerotic heart disease of native coronary artery without angina pectoris; I10 Essential (primary) hypertension; F41.1 Generalized anxiety disorder; E03.9 Hypothyroidism, unspecified; K21.9 Gastro-esophageal reflux disease without esophagitis; J43.9 Emphysema, unspecified; F17.210 Nicotine dependence, cigarettes, uncomplicated; B37.2 Candidiasis of skin and nail; K64.9 Unspecified hemorrhoids | CPT/HCPCS: 83036; 96127; 99212 ==

== ENCOUNTER 2025-01-10 11:18 | Outpatient (REF) | payer OTHER, SELFPAY ==
--- OUTSIDE RECORDS SUMMARY | 2024-11-07 10:45 | XMS_ITS ---
Author Organization [facility] Address [address] [place] [address] Care Team Providers Care Roll Over Loader Name Role Phone Vicky Whitman Primary Care Provider Unavailabl Ephraim Bhagat Unavailable [phone] REASON FOR VISIT Seen Sooner Encounters Encounter Location Date [facility] [address] 11/07/2024 Ephraim Fuentes Plan Of Treatment Next Appt Details Provider Name:Ephraim Fuentes , 03/10/2025 11:15:00 AM, [address] [place], [address], Progress Notes * DELPinaDOB:10/1954 (69 yo F)Acc No.[id number]:11/07/2024 Progress Note Patient: Missy MACIASOLIVIAPina Provider: Coleman Fuentes DPM :1955 A ge:69 Y S ex:Female Date:11/07/2024 Address:[address] [place] [address] [address] [facility] Pcp:Vicky Whitman Subjective: * Chief Complaints: * [...] 11/07/2024 Generated for Sirisha pressley/Jasmeet/Ankita on: 0 01/10/2025 12:15 PM EDT
--- OUTSIDE RECORDS SUMMARY | 2025-01-10 12:15 | XMS_ITS | Patient Health Record ---
Author Organization [facility] Address [address] [place] [address] Care Team Providers Care Pipe Layer Helper Name Role Phone Po Vicky BROCK Primary Care Provider Ras Rios [phone] Allergies Allergen (clinical drug ingredient) Drug/Non Drug [...] Problem Status W/U Status Risk Notes Problem 604586081 Encounter for screening for malignant neoplasm of colon (Z12.11) Active confirmed Problem [id number] Preprocedural examination (Z01.818) Active confirmed Problem 178374529 Irregular bowel habits (R19.8) Active confirmed Problem Diverticulosis of colon (389628929) Diverticulosis of colon (K57.30) Active confirmed Problem 880522263602608 History of Clostridioides difficile infection (Z86.19) Active confirmed Plan Of Treatment Future Test Test Name Order Date COLONOSCOPY 06/08/2019 COLONOSCOPY 08/07/2021 Insurance Providers Payer Name Payer Address Payer Phone Subscriber Number Group Number Insured Name Patient Relationship to Insured Coverage Start Date Coverage End Date [facility] [address] [place] [address] [id number] MARCELINA GEIGER Self - patient is the insured Medical (General) History Medical History History ICD Code Denies CVA,renal disease COPD [place]--s/p stent placement in 2015 Hypertension Glaucoma Neg [...]
--- OUTSIDE RECORDS SUMMARY | 2025-01-10 12:15 | XMS_ITS | Patient Health Record ---
[facility] Address [address] [place] [address] Care Team Providers Care Infusion Rn Name Role Phone Vicky Whitman Primary Care Provider Ephraim Mercado Unavailable [phone] Allergies Allergen (clinical drug ingredient) Drug/Non Drug [...] Administered 1st 10/04/2020 Influenza Unknown 02/19/2020 Administered Influenza Unknown 02/16/2024 Administered Social History Tobacco Use: Social History [...] Problem Acquired hammer toe of right foot (4164523975660259 ) Other hammer toe(s) (acquired), right foot (M20.41) Active confirmed Response to treatment, Improvemen t Problem Acquired hammer toe of left foot (2094977375306488 ) Other hammer toe(s) (acquired), left foot (M20.42) Active confirmed Response to treatment, Improvemen t Problem Polyneuropathy due to type 2 diabetes mellitus (253691740) Type 2 diabetes mellitus with diabetic polyneuropathy (E11.42) Active confirmed Vital Signs Blood pressure diastolic 60 mm Hg 12/06/2024 Height 5ft in 12/06/2024 Blood pressure systolic 130 mm Hg 12/06/2024 Weight 162 lbs 12/06/2024 BMI 31.64 kg/m2 12/06/2024 Procedures Procedure Date Ordered Date Performed Result Body Sit e 75317-NMHYFMS NAIL, 6 OR MORE 02/02/2024 N/A 39933-KNNW SKIN LESIONS, OVER 4 02/02/2024 N/A 23534-BCRWJBY NAIL, 6 OR MORE 08/26/2024 N/A 63935-YSOS SKIN LESIONS, OVER 4 08/26/2024 N/A 91602-RFZOWNC NAIL, 6 OR MORE 12/06/2024 N/A 40579-UGPI SKIN LESIONS, OVER 4 12/06/2024 N/A Encounters Encounter Location Date Provider Diagnosis [address] [address] 02/02/2024 Ephraim Fuentes Type 2 diabetes mellitus with diabetic polyneuropathy E11.42 and Tinea unguium B35.[address] [address] 08/26/2024 Ephraim Fuentes Type 2 diabetes mellitus with diabetic polyneuropathy E11.42 ; Tinea unguium B35.1 ; Other hammer toe(s) (acquired), right foot M20.41 and Other hammer toe(s) (acquired), left foot M20.[address] [address] 12/06/2024 Ephraim Fuentes Type 2 diabetes mellitus with diabetic polyneuropathy E11.42 and Tinea unguium B35.[address] [address] 05/04/2024 Ephraim Fuentes [address] [address] 08/16/2024 Ephraim Fuentes Assessments Encounter Date Diagnosis [...] Treatment Pending Test Test Name Order Date 52030-DMWWPNH NAIL, 6 OR MORE 09/11/2020 62512-IUPFQRK NAIL, 6 OR MORE 12/25/2020 98729-WGYMCTG NAIL, 6 OR MORE 07/31/2021 52380-PPPTIKQ NAIL, 6 OR MORE 11/20/2021 28563-TFXPNTM NAIL, 6 OR MORE 01/31/2022 89367-DKBTTCX NAIL, 6 OR MORE 04/25/2022 69268-FFPWUDV NAIL, 6 OR MORE 08/29/2022 77932-LFCWCKZ NAIL, 6 OR MORE 11/14/2022 59110-MMSZANP NAIL, 6 OR MORE 03/24/2023 90222-ZVKHSZC NAIL, 6 OR MORE 11/23/2023 57719-ZKPSGFZ NAIL, 6 OR MORE 02/02/2024 20272-ABHYVFA NAIL, 6 OR MORE 08/26/2024 39022-VMHQWUW NAIL, 6 OR MORE 12/06/2024 82564-GCMF SKIN LESIONS, OVER 4 12/07/19 25 50317-JDSG SKIN LESIONS, OVER 4 08/27/19 25 46548-UESZ SKIN LESIONS, OVER 4 02/02/20 24 57535-THLL SKIN LESIONS, OVER 4 11/23/19 24 52732-ODWC SKIN LESIONS, OVER 4 03/24/20 23 36477-XUNO SKIN LESIONS, OVER 4 11/15/19 23 71185-EEOT SKIN LESIONS, OVER 4 08/30/19 23 71765-BXKQ SKIN LESIONS, OVER 4 04/25/20 22 36029-RIYC SKIN LESIONS, OVER 4 02/01/20 22 20674-OOKO SKIN LESIONS, OVER 4 11/21/19 22 33722-HTSW SKIN LESIONS, OVER 4 08/01/19 22 40910-FVWZ SKIN LESIONS, 2 TO 4 12/26/19 21 Next Appt Details Provider Name:Ephraim Fuentes , 03/10/2025 11:15:00 AM, [address] [place] [address], [phone], Insurance Providers Payer Name Payer Address Payer Phone Subscriber Number Group Number Insured Name Patient Relationship to Insured Coverage Start Date Coverage End Date [facility] CCA SCO Claims [address] [place] [id number] Pina Gaytan Self - patient is the insured Medical (General) History Medical History History ICD Code Angina Anxiety Arthritis Back,Hip,and Knee pain CAD (Cholesterol) Cataracts Depression Diabetic border line Glaucoma Heart disease High blood pressure Chicken pox Measles Mumps thyroid UTI's Diabetes type ll Surgical History Surgery Date(Month/Year) 1988,1993 Stent/implant R eye 06/2015 cataract surgery Hospital[place] History Reason Date(Month/Year[place] [facility] [place] [facility]-1 we ek given steroids 03/19/2022
== END 2025-01-10 11:19 | disposition home or self-care (01) ==
LOC: HO.MAMMO 11:18
PROVIDERS: PCP Internal Medicine; Visit Provider Internal Medicine
DX: B37.2 Candidiasis of skin and nail (principal); N39.0 Urinary tract infection, site not specified; R39.15 Urgency of urination
CPT/HCPCS: 81002; 87086; 99212

== ENCOUNTER 2025-01-10 13:55 | Outpatient (AMB) | payer OTHER, SELFPAY ==
[2025-01-10 14:00] VITALS: BP 120/52; PULSE 78; O2SAT 96; BMI 31.4
--- NOTE | 2025-01-10 14:00 | MHC.PC.OV ---
Vital Signs 01/10/25 14:00 Height 5 ft 1 in Weight 166 lb 4 oz BMI 31.4 BP 120/52 L Blood Pressure Location Lt brachial Position Sitting Pulse 78 Pulse Source Pulse Oximeter Pulse Oximetry (%) 96 Oxygen Delivery Method Room Air Intake Visit Reasons: under breast rash Manager Electrical Required: No Accompanied by: Self / Same As Patient Allergies LATEX Allergy (Intermediate, Verified 01/10/25 14:03) rash MOLD Allergy (Intermediate, Verified 01/10/25 14:03) rash NONORGANIC FOOD Allergy (Intermediate, Verified 01/10/25 14:03) diarrhea Yeast Allergy (Intermediate, Verified 01/10/25 14:03) Diarrhea empagliflozin (From Jardiance) Adverse Reaction (Intermediate, Verified 01/10/25 14:03) Vaginal candidiasis Tobacco use date assessed: 01/10/25 Fall risk assessment: No Falls in past year Last assessed Fall Risk: 01/10/25 Dental Screening Dental Screen Date: 01/10/25 Did you have a dental visit in the last 12 months?: No Did you have a dental problem in the last 6 months where you did not have access to dental care?: No Was dental information given to patient?: Patient has dentist HPI under breast rash HPI Details 69-year-old female with past medical history of diabetes mellitus, coronary artery disease, hypercholesterolemia, COPD, GERD, hypothyroid and hypertension last seen 10/2024 coming in for acute problem. Presenting with a yeast infection under the breasts. The yeast infection is characterized by a rash and split skin under both breasts, exacerbated by heat and moisture. The patient has a history of large breasts and does not wear a bra at home, contributing to moisture accumulation. Previous treatments included a steroid cream, which was advised against due to skin thinning effects. Current management includes a non-steroidal cream and nystatin powder for maintenance post-healing. The patient reports urinary symptoms suggestive of a urinary tract infection, with plans for a urine culture to confirm diagnosis. [facility] Medical History Dysuria Anxiety and depression Thrush, oral Allergic rhinitis Franky's disease Goiter diffuse Cataract Glaucoma Tobacco abuse Type 2 diabetes mellitus with hyperglycemia GERD (gastroesophageal reflux disease) Obesity (BMI 30-39.9) COPD (chronic obstructive pulmonary disease) Coronary artery disease Carpal tunnel syndrome Hypercholesterolemia Hypothyroid Hypertension Surgical History Hx of section History of tubal ligation Family History Father Myocardial infarct Maternal Grandmother Breast cancer Mother Pancreatic cancer Sister Bipolar 1 disorder Other Mental problem Social History Household Members: Family Housing: House Do you presently have visiting nurse or other home services: No Alcohol intake: current Alcohol intake frequency: holidays/special occasions only Patient Tobacco Use Status: Current everyday Tobacco user Tobacco use type: Cigarette Cigarette Packs Per Day: 0.5 Cigarettes Per Day: 4 Years Smoked: 4 cigarettes a day e-Cigarette/Vaping Use: Currently Using Second Hand Smoke Exposure: Yes Advance Directives Date on File: 03/21/22 service: No Current occupational status: disabled Cognitive needs: No Hearing needs: No Vision needs: Yes Questionnaire Thrive Questionnaire Date Thrive assessed: 08/19/24 I am a: Patient What is your living situation today?: I have a steady place to live Within the past 12 months, did the food you bought not last and you didn't have the money to get more?: Sometimes True Within the past 12 months, did you worry whether your food would run out before you got money to buy more?: Sometimes True Do you have trouble paying for medicines?: No Do you have trouble getting transportation to medical appointments?: No Do you have trouble paying your heating and electricity bill?: No Do you have trouble taking care of your child, family member or friend?: No Do you have trouble with day-to-day activities such as bathing, preparing meals, shopping, managing finances, etc.?: Yes Are you currently unemployed and looking for a job?: I choose not to answer this question Are you interested in more education?: No Please select the resources that you would like help with: None Currently or been in a relationship where the following occur: No concerns reported THRIVE Score: 2 RYLAN-7 AMB Questionnaire RYLAN-7 Date RYLAN - 7 assessed: 08/19/24 Source: Developed by Drs. Ras Asif, Kim Jones, Dyllan Norris and colleagues, with an educational kosta from [employer]. Review of Systems Const Denies body aches, Denies chills, Denies fever(s), Denies headache(s) and Denies poor appetite Eyes Reports no additional complaints ENT Denies dizziness and Denies headache(s) Card Denies chest pain, Denies edema, Denies lightheadedness and Denies dyspnea Resp Denies dyspnea GI Denies abdominal pain, Denies nausea and Denies vomiting Reports dysuria Musc Reports no additional complaints and Denies abnormal gait Skin/Breast Reports system reviewed and no additional complaints, except as documented Neuro Denies abnormal gait, Denies dizziness and Denies headache(s) Psych Reports no additional complaints Physical exam (Primary Care) Vital Signs: Last Vital Signs Pulse 78 01/10/25 14:00 BP 120/52 L 01/10/25 14:00 Pulse Ox 96 01/10/25 14:00 Oxygen Delivery Method Room Air 01/10/25 14:00 BMI result Body Mass Index 31.4 Tobacco/Smoking Status: Tobacco use Status Tobacco use date assessed 01/10/25 01/10/25 14:08 Patient Tobacco Use Status Current everyday Tobacco 01/10/25 14:08 Tobacco use type Cigarette 01/10/25 14:08 e-Cigarette/Vaping Use Currently Using 01/10/25 14:08 Thrive Assessment: Date of Thrive Assessment Date Thrive assessed 08/19/24 01/10/25 14:08 Currently or been in a relationship where the following occur: No concerns reported Const General: cooperative, healthy appearing, comfortable and no acute distress Orientation/consciousness: patient oriented x3 HENMT Head: Yes normocephalic Ears: hearing grossly normal bilaterally General nose exam: Normal external nose present Eyes General: appearance normal, both eyes and all related structures Conjunctivae: conjunctivae normal Neck Neck: Yes full ROM and Yes no lymphadenopathy Chest Other: candidal rash under shannon breasts Resp Effort & Inspection: normal respiratory effort Auscultation: clear to auscultation bilaterally, no crackles, no rales, no rhonchi and no wheezes Cardio Rate: regular rate Rhythm: regular rhythm Skin General skin exam: no rashes or lesions noted Neuro General: patient oriented x3 Gait exam (Neuro): Normal gait present Extrem General: Yes normal to inspection, Yes full ROM and No edema Psych Affect: normal affect Attitude: cooperative Insight: Good insight present (Psych) Judgement: Good judgement present (Psych) Results AMB Urinalysis Dipstick UR Leukocytes Small Last Edit by Fracisco Ramos MA on 01/10/25 14:54 2+ Fracisco Ramos 01/10/25 14:54 UR Nitrite Negative Last Edit by Fracisco Ramos MA on 01/10/25 14:54 0.2 Fracisco Ramos 01/10/25 14:54 UR Urobilinogen Last Edit by Fracisco Ramos MA on 01/10/25 14:54 UR Protein Last Edit by Fracisco Ramos MA on 01/10/25 14:54 15 Fracisco Ramos 01/10/25 14:54 UR Ph 6.0 Last Edit by Fracisco Ramos MA on 01/10/25 14:54 UR Blood Negative Last Edit by Fracisco Ramos MA on 01/10/25 14:54 UR Specific [place] 1.020 Last Edit by Fracisco Ramos MA on 01/10/25 14:54 UR Ketone Negative Last Edit by Fracisco Ramos MA on 01/10/25 14:54 UR Bilirubin Negative Last Edit by Fracisco Ramos MA on 01/10/25 14:54 UR Glucose Negative Last Edit by Fracisco Ramos MA on 01/10/25 14:54 Coding Level of Care Code Est Pt Level 4 (08997) Diagnoses Candidal intertrigo B37.2 Recurrent UTI N39.0 Assessment & Plan Assessment & Plan (1) Candidal intertrigo: Code(s): B37.2 - Candidiasis of skin and nail Category: Medical Plan: The patient will continue using a non-steroidal cream twice daily for 7 to 10 days to treat the yeast infection under the breasts. Nystatin powder will be used as maintenance therapy once the rash has cleared to prevent recurrence. (2) Recurrent UTI: Code(s): N39.0 - Urinary tract infection, site not specified Category: Medical Plan: She reports new onset burning with urination and UA is positive for UTI plan to send out culture to guide abx. Macrobid BID sent to pharmacy and advised patient to reach out to urology as well. Plan This note was constructed using voice recognition software. While every effort has been made to ensure accuracy and patient service coordinator, still areas may have been included sometimes these areas may affect the content or meeting of the given symptoms. Total time spent caring for the patient today was 20 minutes. This includes time spent before the visit reviewing the chart, time spent during the visit, and time spent after the visit and documentation. Patient was informed and verbally consented to the use of an ambient scribe for clinic note documentation during this visit. Orders: Orders AMB Urinalysis Dipstick Today Z13.9 - Encounter for screening, unspecified Urine Culture Today R39.15 - Urgency of urination Medications: Refilled clotrimazole 1% 1 appl topical BID 45 grams 0RF 4 weeks E11.65 - Type 2 diabetes mellitus with hyperglycemia
== END 2025-01-10 14:54 | disposition home or self-care (01) ==
LOC: HO.HMCH 13:56
PROVIDERS: PCP Internal Medicine
DX: B37.2 Candidiasis of skin and nail (principal); N39.0 Urinary tract infection, site not specified; Z13.9 Encounter for screening, unspecified

== ENCOUNTER 2025-01-25 11:36 | Outpatient (REF) | payer OTHER, SELFPAY ==
--- OUTSIDE RECORDS SUMMARY | 2024-05-06 08:00 | XMS_ITS ---
Author Organization [facility] Address [address] [place] [address] Care Team Providers Care Carpenter Form Name Role Phone Vicky Whitman Primary Care Provider Unavailabl Ephraim Bhagat Unavailable [phone] Encounters Encounter Location Date Provider Diagnosis [address] [address] 05/06/2024 Ephraim Fuentes Plan Of Treatment Next Appt Details Provider Name:Ephraim Fuentes , 03/10/2025 11:15:00 AM, [address] [place] [address], [phone], Progress Notes * DELPinaDOB:10/1954 (69 yo F)Acc No.[id number]:05/06/2024 Progress Note Patient: Missy DEVINEEPIFANIOPina LUNDY Provider: Coleman Fuentes DPM :1955 A ge:69 Y S ex:Female Date:05/06/2024 Address:[address] [place] [address] [address], [id number] Pcp:Vicky Whitman Subjective: * Chief Complaints: * [...] 07/07/2023 Generated for Sirisha pressley/Jasmeet/Ankita on: 0 01/25/2025 02:47 PM EDT
--- OUTSIDE RECORDS SUMMARY | 2024-08-16 09:30 | XMS_ITS ---
Author Organization [facility] Address [address] [place] [address] Care Team Providers Care Turpentine Distiller Name Role Phone Vicky Whitman Primary Care Provider Unavailabl Ephraim Bhagat Unavailable [phone] Encounters Encounter Location Date Provider Diagnosis [address] [address] 08/16/2024 Ephraim Fuentes Plan Of Treatment Next Appt Details Provider Name:Ephraim Fuentes , 03/10/2025 11:15:00 AM, [address] [place] [address], [phone], Progress Notes * DELPinaDOB:10/1954 (69 yo F)Acc No.[id number]:08/16/2024 Progress Note Patient: Missy MOHANJANINEPina Provider: Coleman Fuentes DPM :1955 A ge:69 Y S ex:Female Date:08/16/2024 Address:[address] [place] [address] [address], [id number] Pcp:Vicky Whitman Subjective: * Chief Complaints: * * Medical History: Objective: * Vitals: Assessment: Plan: * Treatment: * Images: * The named appointment provid er may or may not be the originator of this progress note, and it is not deemed complete until electronically signed by the appointment provider. Sign off status: Pending * Provider: Coleman Fuentes DPM Date: 0 08/16/2024 Generated for Sirisha pressley/Louise on: 0 01/25/2025 02:47 PM EDT
--- OUTSIDE RECORDS SUMMARY | 2024-11-07 10:45 | XMS_ITS ---
Author Organization [facility] Address [address] [place] [address] Care Team Providers Care Professor/Nurse Anesthetist Name Role Phone Vicky Whitman Primary Care Provider Unavailabl Ephraim Bhagat Unavailable [phone] REASON FOR VISIT Seen Sooner Encounters Encounter [facility] Date [facility] [address] 11/07/2024 Ephraim Fuentes Plan Of Treatment Next Appt Details Provider Name:Ephraim Fuentes , 03/10/2025 11:15:00 AM, [address] [place], [address], Progress Notes * DELPinaDOB:10/1954 (69 yo F)Acc No.[id number]:11/07/2024 Progress Note Patient: Missy MACIASOLIVIAPina Provider: Coleman Fuentes DPM :1955 A ge:69 Y S ex:Female Date:11/07/2024 Address:[address] [place] [address] [address], [address] [id number] Pcp:Vicky Whitman Subjective: * Chief Complaints: * [...] 0 11/07/2024 Generated for Sirisha pressley/Jasmeet/Ankita on: 0 01/25/2025 02:47 PM EDT
[2025-01-25 13:54] LABS: Appearance Urine Cloudy; Glucose Urine UA Negative (Negative); PH 5.5 (5.0-9.0); Specific Gravity - Urine 1.020 (1.005-1.025); UMIC TRIGGER UA YES
--- OUTSIDE RECORDS SUMMARY | 2025-01-25 14:47 | XMS_ITS | Patient Health Record ---
[facility] Address [address] [place] [address] Care Team Providers Care Claims Technician Name Role Phone Vicky Whitman Primary Care Provider Eprhaim Mercado Unavailable [phone] Allergies Allergen (clinical drug ingredient) Drug/Non Drug [...] Problem Acquired hammer toe of right foot (6904415838246240 ) Other hammer toe(s) (acquired), right foot (M20.41) Active confirmed Response to treatment, Improvemen t Problem Acquired hammer toe of left foot (4227801740401881 ) Other hammer toe(s) (acquired), left foot (M20.42) Active confirmed Response to treatment, Improvemen t Problem Polyneuropathy due to type 2 diabetes mellitus (995744680) Type 2 diabetes mellitus with diabetic polyneuropathy (E11.42) Active confirmed Vital Signs Blood pressure diastolic 60 mm Hg 12/06/2024 Height 5ft in 12/06/2024 Blood pressure systolic 130 mm Hg 12/06/2024 Weight 162 lbs 12/06/2024 BMI 31.64 kg/m2 12/06/2024 Procedures Procedure Date Ordered Date Performed Result Body Sit e 89220-VHRUGFD NAIL, 6 OR MORE 02/02/2024 N/A 97636-WVGF SKIN LESIONS, OVER 4 02/02/2024 N/A 93911-XXQKPAR NAIL, 6 OR MORE 08/26/2024 N/A 81351-LUDE SKIN LESIONS, OVER 4 08/26/2024 N/A 86062-TEWUJVF NAIL, 6 OR MORE 12/06/2024 N/A 11294-HHKL SKIN LESIONS, OVER 4 12/06/2024 N/A Encounters Encounter Location Date Provider Diagnosis [address] [address] 02/02/2024 Ephraim Fuentes Type 2 diabetes mellitus with diabetic polyneuropathy E11.42 and Tinea unguium B35.[address] [address] 08/26/2024 Ephraim Fuentes Type 2 diabetes mellitus with diabetic polyneuropathy E11.42 ; Tinea unguium B35.1 ; Other hammer toe(s) (acquired), right foot M20.41 and Other hammer toe(s) (acquired), left foot M20.[address] [address] 12/06/2024 Ephraim Fuentes Type 2 diabetes mellitus with diabetic polyneuropathy E11.42 and Tinea unguium B35.[address] [address] 05/04/2024 Ephraim Fuentes [address] [address] 08/16/2024 Ephraim Fuentes Assessments Encounter Date Diagnosis [...] Treatment Pending Test Test Name Order Date 43245-TWOULKI NAIL, 6 OR MORE 09/11/2020 57648-AXOLDTD NAIL, 6 OR MORE 12/25/2020 61777-BJIOGEF NAIL, 6 OR MORE 07/31/2021 60517-WIIGYAD NAIL, 6 OR MORE 11/20/2021 47685-MYIYKKK NAIL, 6 OR MORE 01/31/2022 87018-LVZAZAM NAIL, 6 OR MORE 04/25/2022 02517-AYVBMFW NAIL, 6 OR MORE 08/29/2022 07496-EKRVUHB NAIL, 6 OR MORE 11/14/2022 41876-CCJPXRF NAIL, 6 OR MORE 03/24/2023 58585-SRABOKD NAIL, 6 OR MORE 11/23/2023 79539-GDDTYIS NAIL, 6 OR MORE 02/02/2024 84308-YNCBWJD NAIL, 6 OR MORE 08/26/2024 04730-RJKEGGZ NAIL, 6 OR MORE 12/06/2024 94546-ZJDX SKIN LESIONS, OVER 4 12/07/19 25 54419-TPCP SKIN LESIONS, OVER 4 08/27/19 25 84000-NABV SKIN LESIONS, OVER 4 02/02/20 24 27229-GAZL SKIN LESIONS, OVER 4 11/23/19 24 10899-QCMB SKIN LESIONS, OVER 4 03/24/20 23 86397-LKXC SKIN LESIONS, OVER 4 11/15/19 23 01747-SDJV SKIN LESIONS, OVER 4 08/30/19 23 17448-SRTR SKIN LESIONS, OVER 4 04/25/20 22 37670-DCQL SKIN LESIONS, OVER 4 02/01/20 22 81470-ABPK SKIN LESIONS, OVER 4 11/21/19 22 20886-MHGM SKIN LESIONS, OVER 4 08/01/19 22 69666-SMEJ SKIN LESIONS, 2 TO 4 12/26/19 21 Next Appt Details Provider Name:Ephraim Fuentes , 03/10/2025 11:15:00 AM, [address] [place] [address], [phone], Insurance Providers Payer Name Payer Address Payer Phone Subscriber Number Group Number Insured Name Patient Relationship to Insured Coverage Start Date Coverage End Date [facility] CCA SCO Claims [address] [place] [id number] Pina Gaytan Self - patient is the insured Medical (General) History Medical History History ICD Code Angina Anxiety Arthritis Back,Hip,and Knee pain CAD (Cholesterol) Cataracts Depression Diabetic border line Glaucoma Heart disease High blood pressure Chicken pox Measles Mumps thyroid UTI's Diabetes type ll Surgical History Surgery Date(Month/Year) 1988,1993 Stent/implant R eye 06/2015 cataract surgery Hospitalization History Reason Date(Month/Year) [facility] [place] -thrush mouth from terry thomasta-1 we ek given steroids 03/19/2022
--- OUTSIDE RECORDS SUMMARY | 2025-01-25 14:47 | XMS_ITS | Patient Health Record ---
Author Organization [facility] Address [address] [place] [address] Care Team Providers Care Porter Luggage Name Role Phone Po Vicky BROCK Primary Care Provider Ras Rios [phone] Allergies Allergen (clinical drug ingredient) Drug/Non Drug [...] Problem Status W/U Status Risk Notes Problem [id number] Encounter for screening for malignant neoplasm of colon (Z12.11) Active confirmed Problem 832126148012949 Preprocedural examination (Z01.818) Active confirmed Problem 306008217 Irregular bowel habits (R19.8) Active confirmed Problem Diverticulosis of colon (270521012) Diverticulosis of colon (K57.30) Active confirmed Problem 090911282416655 History of Clostridioides difficile infection (Z86.19) Active confirmed Plan Of Treatment Future Test Test Name Order Date COLONOSCOPY 06/08/2019 COLONOSCOPY 08/07/2021 Insurance Providers Payer Name Payer Address Payer Phone Subscriber Number Group Number Insured Name Patient Relationship to Insured Coverage Start Date Coverage End Date [facility] [address] [place] [phone] [id number] MARCELINA GEIGER Self - patient is the insured Medical (General) History Medical History History ICD Code Denies CVA,renal disease COPD [place]--s/p stent placement in 2015 Hypertension Glaucoma Neg [...]
== END 2025-01-25 11:37 | disposition home or self-care (01) ==
LOC: HO.HMGCLDS 11:36
PROVIDERS: PCP Internal Medicine; Visit Provider Urology
DX: N39.0 Urinary tract infection, site not specified (principal)
CPT/HCPCS: 81001; 87086

== ENCOUNTER 2025-01-30 13:17 | Outpatient (AMB) | payer OTHER, SELFPAY ==
--- OUTSIDE RECORDS SUMMARY | 2024-05-06 08:00 | XMS_ITS ---
Author Organization [facility] Address [address] [place] [address] Care Team Providers Care Department [employer] Name Role Phone Vicky Whitman Primary Care Provider Unavailabl Ephraim Bhagat Unavailable [phone] Encounters Encounter Location Date Provider Diagnosis [address] [address] 05/06/2024 Ephraim Fuentes Plan Of Treatment Next Appt Details Provider Name:Ephraim Fuentes , 03/10/2025 11:15:00 AM, [address] [place] [address], [phone], Progress Notes * DELPinaDOB:10/1954 (69 yo F)Acc No.[id number]:05/06/2024 Progress Note Patient: Missy DEVINEEPIFANIOPina LUNDY Provider: Coleman Fuentes DPM :1955 A ge:69 Y S ex:Female Date:05/06/2024 Address:[address] [place] [address] [address] [id number] Pcp:Vicky Whitman Subjective: * Chief Complaints: * * Medical History: Objective: * Vitals: Assessment: Plan: * Treatment: * Images: * The named appointment provid er may or may not be the originator of this progress note, and it is not deemed complete until electronically signed by the appointment provider. Sign off status: Pending * Provider: Coleman Fuentes DPM Date: 1 07/07/2023 Generated for Sirisha pressley/Jasmeet/Ankita on: 0 01/30/2025 06:27 PM EDT
--- OUTSIDE RECORDS SUMMARY | 2024-08-16 09:30 | XMS_ITS ---
Author Organization [facility] Address [address] [place] [address] Care Team Providers Care Media Center Assistant Name Role Phone Vicky Whitman Primary Care Provider Unavailabl Ephraim Bhagat Unavailable [phone] Encounters Encounter Location Date Provider Diagnosis [address] [address] 08/16/2024 Ephraim Fuentes Plan Of Treatment Next Appt Details Provider Name:Ephraim Fuentes , 03/10/2025 11:15:00 AM, [address] [place] [address], [phone], Progress Notes * DEL PinaDOB:10/1954 (69 yo F)Acc No.[id number]:08/16/2024 Progress Note Patient: Missy MOHANJANINEPina Provider: Coleman Fuentes DPM :1955 A ge:69 Y S ex:Female Date:08/16/2024 Address:[address] [place] [address] [address], [id number] Pcp:Vicky Whitman Subjective: * Chief Complaints: * [...] 08/16/2024 Generated for Sirisha pressley/Louise on: 0 01/30/2025 06:27 PM EDT
--- OUTSIDE RECORDS SUMMARY | 2024-11-07 10:45 | XMS_ITS ---
Author Organization [facility] Address [address] [place] [address] Care Team Providers Care Pegger Name Role Phone Vicky Whitman Primary Care Provider Unavailabl Ephraim Bhagat Unavailable [phone] REASON FOR VISIT Seen Sooner Encounters Encounter Location Date [facility] [address] 11/07/2024 Ephraim Fuentes Plan Of Treatment Next Appt Details Provider Name:Ephraim Fuentes , 03/10/2025 11:15:00 AM, [address] [place], [address], Progress Notes * DELPinaDOB:10/1954 (69 yo F)Acc No.[id number]:11/07/2024 Progress Note Patient: Missy MACIASOLIVIAPina Provider: Coleman Fuentes DPM :1955 A ge:69 Y S ex:Female Date:11/07/2024 Address:[address] [place] [address] [address] [id number] Pcp:Vicky Whitman Subjective: * Chief Complaints: * [...] 11/07/2024 Generated for Sirisha pressley/Jasmeet/Ankita on: 0 01/30/2025 06:27 PM EDT
[2025-01-30 13:28] VITALS: BP 122/52; PULSE 77; O2SAT 98; BMI 31.4
--- NOTE | 2025-01-30 13:28 | MHC.OFFVIS ---
Vital Signs 01/30/25 13:28 Height 5 ft 1 in Weight 166 lb 7.184 oz BMI 31.4 BP 122/52 L Blood Pressure Location Lt brachial Position Sitting Pulse 77 Pulse Source Pulse Oximeter Pulse Oximetry (%) 98 Oxygen Delivery Method Room Air Intake Visit Reasons: copd Intake Note: pt is here for follow up and states she is feeling okay wheeze once in while, and a cough with phelgm, please refill Breo Pointer Machine Operator Required: No Allergies LATEX Allergy (Intermediate, Verified 01/30/25 13:31) rash MOLD Allergy (Intermediate, Verified 01/30/25 13:31) rash NONORGANIC FOOD Allergy (Intermediate, Verified 01/30/25 13:31) diarrhea Yeast Allergy (Intermediate, Verified 01/30/25 13:31) Diarrhea empagliflozin (From Jardiance) Adverse Reaction (Intermediate, Verified 01/30/25 13:31) Vaginal candidiasis Do you need a note to return to daycare/school/sports/work: No HPI HPI copd: Details: Pina , 69 years old female with chronic obstructive pulmonary disorder, And smoking 1 or 2 cigarettes a day, comes for. Follow-up after 4 months She has been doing well without any acute exacerbation. Still does have mild intermittent cough which is mostly. related to smoking She does have nicotine buccal pouches 2 mg that she uses p.r.n.. Main discussion was about her ongoing urinary incontinence at night, , back discomfort and impaired locomotion, chronic back pain and anxiety. She walks around with a cane. She develops sweat rash under the breasts quite commonly and uses nystatin cream. [facility] Medical History Dysuria Anxiety and depression Thrush, oral Allergic rhinitis Franky's disease Goiter diffuse Cataract Glaucoma Tobacco abuse Type 2 diabetes mellitus with hyperglycemia GERD (gastroesophageal reflux disease) Obesity (BMI 30-39.9) COPD (chronic obstructive pulmonary disease) Coronary artery disease Carpal tunnel syndrome Hypercholesterolemia Hypothyroid Hypertension Surgical History Hx of section History of tubal ligation Family History Father Myocardial infarct Maternal Grandmother Breast cancer Mother Pancreatic cancer Sister Bipolar 1 disorder Other Mental problem Social History Household Members: Family Housing: House Do you presently have visiting nurse or other home services: No Alcohol intake: current Alcohol intake frequency: holidays/special occasions only Patient Tobacco Use Status: Current someday Tobacco user Tobacco use type: Cigarette Cigarette Packs Per Day: 0.5 Cigarettes Per Day: 4 Years Smoked: 4 cigarettes a day e-Cigarette/Vaping Use: Currently Using Second Hand Smoke Exposure: Yes Advance Directives Date on File: 03/21/22 service: No Current occupational status: disabled Cognitive needs: No Hearing needs: No Vision needs: Yes Review of Systems Const All systems reviewed & are unremarkable except as noted in HPI and below (I also reviewed PFSH .) Eyes Reports no additional complaints ENT Reports nasal congestion and Reports nasal discharge Card Denies chest pain, Denies irregular heart rhythm and Denies leg edema Resp Reports as per HPI GI Reports no additional complaints Reports no additional complaints Musc Reports back pain (Mild to moderate off and on) Skin/Breast Reports system reviewed and no additional complaints, except as documented Neuro Reports no additional complaints Psych Reports anxiety Endo Reports no additional complaints Physical Exam Vital Signs: Last Vital Signs Pulse 77 01/30/25 13:28 BP 122/52 L 01/30/25 13:28 Pulse Ox 98 01/30/25 13:28 Oxygen Delivery Method Room Air 01/30/25 13:28 BMI result Body Mass Index 31.4 Assessment & Plan Assessment & Plan (1) COPD (chronic obstructive pulmonary disease): Comment: Chronic, mild to moderate COPD, and she also has moderate degree of restrictive disorder. Overall it is staying stable. Code(s): J44.9 - Chronic obstructive pulmonary disease, unspecified Category: Medical Qualifiers: COPD type: emphysema Emphysema type: unspecified Qualified Code(s): J43.9 - Emphysema, unspecified Plan: Continue using Breo 200-251 inhalation daily and albuterol HFA 2 puffs Q 6 hours p.r.n.. (2) Tobacco abuse: Comment: SHE CONTINUES TO SMOKE ABOUT 4-5 CIGARETTES A DAY. COUNSELED THAT SHE SHOULD STOP SMOKING COMPLETELY . . HER COUGH AND CONGESTED FEELING IN THE UPPER AIRWAYS IS MOSTLY SECONDARY TO SMOKING. SHE IS TRYING HER BEST TO CUT DOWN THE NUMBER OF CIGARETTES. Code(s): Z72.0 - Tobacco use Category: Medical Plan: Again encouraged to quit smoking completely. I convinced her that she does need an will lung screening with LDCT (3) Generalized anxiety disorder: Comment: Pina does have chronic anxiety syndrome, stable at this time Code(s): F41.1 - Generalized anxiety disorder Category: Medical Plan: Klonopin 1 mg Q 8 hours p.r.n. Orders: Referrals Lung Cancer Screening Referral F41.1 - Generalized anxiety disorder, J43.9 - Emphysema, unspecified, Z72.0 - Tobacco use Medications: Changed From Breo Ellipta 200-25 mcg/dose (fluticasone furoate-vilanterol) 1 ea PO DAILY 180 ea 0RF NS J43.9 - Emphysema, unspecified, Z72.0 - Tobacco use To fluticasone furoate-vilanterol 200-25 mcg/dose (Breo Ellipta) 1 ea PO DAILY 60 ea 3RF ccopd/asthma 90 days J43.9 - Emphysema, unspecified, Z72.0 - Tobacco use Coding Level of Care Code Est Pt Level 3 (15648) Diagnoses Pulmonary emphysema, unspecified emphysema type J43.9 COPD type: emphysema Emphysema type: unspecified Tobacco abuse Z72.0 Generalized anxiety disorder F41.1
--- OUTSIDE RECORDS SUMMARY | 2025-01-30 18:27 | XMS_ITS | Patient Health Record ---
Author Organization [facility] Address [address] [place] [address] Care Team Providers Care Historical Interpreter Name Role Phone Po Vicky BROCK Primary Care Provider Ras Rios [phone] Allergies Allergen (clinical drug ingredient) Drug/Non Drug Allergy documented on EMR Reaction Allergy Type Onset Date Status Latex gloves (uncoded) Unknown Allergy Active food allergies (uncoded) Unknown Allergy Active Reason For Referral [...] Problem Status W/U Status Risk Notes Problem 659017263 Encounter for screening for malignant neoplasm of colon (Z12.11) Active confirmed Problem 369717180431672 Preprocedural examination (Z01.818) Active confirmed Problem 535169094 Irregular bowel habits (R19.8) Active confirmed Problem Diverticulosis of colon (366431392) Diverticulosis of colon (K57.30) Active confirmed Problem 248087702217020 History of Clostridioides difficile infection (Z86.19) Active confirmed Plan Of Treatment Future Test Test Name Order Date COLONOSCOPY 06/08/2019 COLONOSCOPY 08/07/2021 Insurance Providers Payer Name Payer Address Payer Phone Subscriber Number Group Number Insured Name Patient Relationship to Insured Coverage Start Date Coverage End Date [facility] [address] [place] [phone] [id number] MARCELINA GEIGER Self - patient is the insured Medical (General) History Medical History History ICD Code Denies CVA,renal disease COPD [place]--s/p stent placement in 2015 Hypertension Glaucoma Neg [...]
--- OUTSIDE RECORDS SUMMARY | 2025-01-30 18:27 | XMS_ITS | Patient Health Record ---
Author Organization [facility] Address [address] [place] [address] Care Team Providers Care Metal Bonding Helper Name Role Phone Vicky Whitman Primary Care Provider Ephraim Mercado Unavailable [phone] Allergies Allergen (clinical drug ingredient) Drug/Non Drug Allergy documented on EMR Reaction Allergy Type Onset Date Status Information temporarily unavailable Latex Unknown Allergy Active Information temporarily unavailable Mold Unknown Allergy Active Results Component Value [...] Duration: 30 day(s) Active Proventil HFA Not-Ta Myrbetriq 50 MG 1 tablet Orally Once [...] Problem Acquired hammer toe of right foot (8015736207243090 ) Other hammer toe(s) (acquired), right foot (M20.41) Active confirmed Response to treatment, Improvemen t Problem Acquired hammer toe of left foot (0770336077658414 ) Other hammer toe(s) (acquired), left foot (M20.42) Active confirmed Response to treatment, Improvemen t Problem Polyneuropathy due to type 2 diabetes mellitus (089318549) Type 2 diabetes mellitus with diabetic polyneuropathy (E11.42) Active confirmed Vital Signs Blood pressure diastolic 60 mm Hg 12/06/2024 Height 5ft in 12/06/2024 Blood pressure systolic 130 mm Hg 12/06/2024 Weight 162 lbs 12/06/2024 BMI 31.64 kg/m2 12/06/2024 Procedures Procedure Date Ordered Date Performed Result Body Sit e 79996-QFLUOWS NAIL, 6 OR MORE 02/02/2024 N/A 89064-QUZU SKIN LESIONS, OVER 4 02/02/2024 N/A 63961-IRKCFNU NAIL, 6 OR MORE 08/26/2024 N/A 04973-CPSC SKIN LESIONS, OVER 4 08/26/2024 N/A 13291-UEQCUAU NAIL, 6 OR MORE 12/06/2024 N/A 84357-HVMY SKIN LESIONS, OVER 4 12/06/2024 N/A Encounters Encounter Location Date Provider Diagnosis [address] [address] 02/02/2024 Ephraim Fuentes Type 2 diabetes mellitus with diabetic polyneuropathy E11.42 and Tinea unguium B35.[address] [address] 08/26/2024 Ephraim Fuentes Type 2 diabetes mellitus with diabetic polyneuropathy E11.42 ; Tinea unguium B35.1 ; Other hammer toe(s) (acquired), right foot M20.41 and Other hammer toe(s) (acquired), left foot M20.[address] [address] 12/06/2024 Ephraim Fuentes Type 2 diabetes mellitus with diabetic polyneuropathy E11.42 and Tinea unguium B35.[address] [address] 05/04/2024 Ephraim Fuentes [address] [address] 08/16/2024 Ephraim Fuentes Assessments Encounter Date Diagnosis (ICD Code) Assessment Notes Treatment Notes Treatment Clinical Notes Section Notes 08/26/2024 Type 2 diabetes mellitus with diabetic polyneuropathy (ICD-10 - E11.42) 08/26/2024 Tinea unguium (ICD-10 - B35.1) 02/02/2024 Type 2 diabetes mellitus with diabetic polyneuropathy (ICD-10 - E11.42) 02/02/2024 Tinea unguium (ICD-10 - B35.1) 12/06/2024 Type [...] Treatment Pending Test Test Name Order Date 34966-FUHGOJA NAIL, 6 OR MORE 09/11/2020 79352-QPFLAMO NAIL, 6 OR MORE 12/25/2020 95399-NQITGWV NAIL, 6 OR MORE 07/31/2021 20766-BCKXJYT NAIL, 6 OR MORE 11/20/2021 43987-VKEYOFK NAIL, 6 OR MORE 01/31/2022 01448-KAIUCPF NAIL, 6 OR MORE 04/25/2022 15464-HEYYCZZ NAIL, 6 OR MORE 08/29/2022 86198-LCBERVG NAIL, 6 OR MORE 11/14/2022 83337-PECFZEH NAIL, 6 OR MORE 03/24/2023 40346-ZQRUVLM NAIL, 6 OR MORE 11/23/2023 70350-YYHBSWL NAIL, 6 OR MORE 02/02/2024 37548-QLVCNIC NAIL, 6 OR MORE 08/26/2024 84398-QEDWCEB NAIL, 6 OR MORE 12/06/2024 27530-ZHPJ SKIN LESIONS, OVER 4 12/07/19 25 89121-ANUV SKIN LESIONS, OVER 4 08/27/19 25 48570-WISV SKIN LESIONS, OVER 4 02/02/20 24 30321-NKMR SKIN LESIONS, OVER 4 11/23/19 24 26663-ISYN SKIN LESIONS, OVER 4 03/24/20 23 84187-KKCA SKIN LESIONS, OVER 4 11/15/19 23 72099-DEFN SKIN LESIONS, OVER 4 08/30/19 23 06265-MEYZ SKIN LESIONS, OVER 4 04/25/20 22 57201-JMFB SKIN LESIONS, OVER 4 02/01/20 22 06078-OKTS SKIN LESIONS, OVER 4 11/21/19 22 41947-WJZM SKIN LESIONS, OVER 4 08/01/19 22 21124-HTKJ SKIN LESIONS, 2 TO 4 12/26/19 21 Next Appt Details Provider Name:Ephraim Fuentes , 03/10/2025 11:15:00 AM, [address] [place], [address], Insurance Providers Payer Name Payer Address Payer Phone Subscriber Number Group Number Insured Name Patient Relationship to Insured Coverage Start Date Coverage End Date [facility] CCA SCO Claims [address] [facility] [place] [address] [id number] Pina Gaytan Self - patient is the insured Medical (General) History Medical History History ICD Code Angina Anxiety Arthritis Back,Hip,and Knee pain CAD (Cholesterol) Cataracts Depression Diabetic border line Glaucoma Heart disease High blood pressure Chicken pox Measles Mumps thyroid UTI's Diabetes type ll Surgical History Surgery Date(Month/Year) 1988,1993 Stent/implant R eye 06/2015 cataract surgery [place] History Reason Date(Month/[place] [facility] [place]-1 we ek given steroids 03/19/2022
== END 2025-01-30 13:45 | disposition home or self-care (01) ==
LOC: HO.HPS 13:18
PROVIDERS: PCP Internal Medicine; Visit Provider Internal Medicine
DX: J43.9 Emphysema, unspecified (principal); Z72.0 Tobacco use; F41.1 Generalized anxiety disorder
CPT/HCPCS: 99213

== ENCOUNTER → 2025-01-30 13:17 | Outpatient (BNVA) | payer OTHER, SELFPAY | PROVIDERS: PCP Internal Medicine; Visit Provider Internal Medicine | DX: F41.1 Generalized anxiety disorder (principal); J43.9 Emphysema, unspecified; Z72.0 Tobacco use | CPT/HCPCS: 99212 ==

== ENCOUNTER 2025-02-03 13:11 | Outpatient (AMB) | payer OTHER, SELFPAY ==
--- NOTE | 2025-02-03 13:26 | A.OFFVIS_ITS ---
Intake Visit Reasons: botox Intake Note: Patient presents today for botox Urology Medications: Myrbetriq Allergies to Antibiotic: No Known Allergies Blood Thinner: Aspirin Certified Financial Planner Required: No Accompanied by: Self / Same As Patient Allergies LATEX Allergy (Intermediate, Verified 02/03/25 13:28) rash MOLD Allergy (Intermediate, Verified 02/03/25 13:28) rash NONORGANIC FOOD Allergy (Intermediate, Verified 02/03/25 13:28) diarrhea Yeast Allergy (Intermediate, Verified 02/03/25 13:28) Diarrhea empagliflozin (From Jardiance) Adverse Reaction (Intermediate, Verified 02/03/25 13:28) Vaginal candidiasis HPI Comments Details: Here for Office Botox bladder injection 100 units PFS Medical History Dysuria Anxiety and depression Thrush, oral Allergic rhinitis Franky's disease Goiter diffuse Cataract Glaucoma Tobacco abuse Type 2 diabetes mellitus with hyperglycemia GERD (gastroesophageal reflux disease) Obesity (BMI 30-39.9) COPD (chronic obstructive pulmonary disease) Coronary artery disease Carpal tunnel syndrome Hypercholesterolemia Hypothyroid Hypertension Surgical History Hx of section History of tubal ligation Family History Father Myocardial infarct Maternal Grandmother Breast cancer Mother Pancreatic cancer Sister Bipolar 1 disorder Other Mental problem Social History Household Members: Family Housing: House Do you presently have visiting nurse or other home services: No Alcohol intake: current Alcohol intake frequency: holidays/special occasions only Patient Tobacco Use Status: Current someday Tobacco user Tobacco use type: Cigarette Cigarette Packs Per Day: 0.5 Cigarettes Per Day: 4 Years Smoked: 4 cigarettes a day e-Cigarette/Vaping Use: Currently Using Second Hand Smoke Exposure: Yes Advance Directives Date on File: 03/21/22 service: No Current occupational status: disabled Cognitive needs: No Hearing needs: No Vision needs: Yes Review of Systems Const All systems reviewed & are unremarkable except as noted in HPI and below Reports no additional complaints Eyes Reports no additional complaints ENT Reports no additional complaints Card Reports no additional complaints Resp Reports no additional complaints GI Reports no additional complaints Reports as per HPI Musc Reports no additional complaints Skin/Breast Reports system reviewed and no additional complaints, except as documented Neuro Reports no additional complaints Psych Reports no additional complaints Endo Reports no additional complaints Sergio/Lymph Reports no additional complaints Aller/Immun Reports no additional complaints Office Procedures Bladder/Catheter Procedure Details: 12fr straight cath inserted, drained 80ml urine from bladder. 12 fr straight cath used to drain bladder and instill botox cocktail: 20 mls bupivicaine 5 mls lidocaine 2% 2 lidocaine urojets 15 minute timer set after botox cocktail Botox 100 units reconstituted with 0.9% sodium chloride preservative free - to be injected by Dr. Rodney 32298-Ihwijx Bladder Catheter Procedure code (CPT) selection complete Cystoscopy Consent Discussed risk and benefit or proposed procedure with the patient. Information consent for procedure given to the patient. Discussed technical aspects, risks, benefits and alternatives in full. Addressed all of the patient's questions and concerns regarding the procedure. The patient demonstrated knowledge and understanding. They wish to proceed with this procedure. Procedure Pre-procedure DIAGNOSIS: OAB Post-procedure DIAGNOSIS: OAB PROCEDURE: CYSTOSCOPY, BLADDER BOTOX INJECTION 100 UNITS SURGEON: Veronica Sharma MD ANESTHESIA: Local Details of procedure: The right and left ureteral orifices were visualized. There were moderate trabeculations noted. There were no suspicious bladder lesions seen. The Botox 100 units was mixed with 10 cc of normal saline and transurethral injections were placed into the posterior wall of the bladder. Complications: None EBL: minimal (<5 mL) Drains: none 07995-Ncpeikejnm 43925 - Botox Injection, urethra or bladder DISPOSABLE SCOPE URO-N NEEDLE SCOPE Procedure code (CPT) selection complete Office Meds lidocaine HCl 2 % mucosal jelly in applicator Performing Provider: Veronica Sharma MD [facility] Administered by: Blu Smith LPN on 02/03/25 14:00 Dose Route Admin Location Dispensed Lot Number Expiration Date NDC Test Operator 10 mL intra-urethral 20 mL onabotulinumtoxinA 100 unit solution for injection Performing Provider: Veronica Sharma MD [facility] Administered by: Blu Smith LPN on 02/03/25 14:00 Dose Route Admin Location Dispensed Lot Number Expiration Date [facility] Test Operator 100 unit transurethral transurethral 100 units [id number] 02/15/27 0023-11 45 ALLERGAN/BOTOX Total Dispensed Waste 100 units 0 % Assessment & Plan Assessment & Plan (1) OAB (overactive bladder): Code(s): N32.81 - Overactive bladder Category: Medical (2) Detrusor overactivity: Code(s): N32.81 - Overactive bladder Category: Medical Plan Nurse visit in 2 weeks check PVR Orders: Orders AMB Bladder/Catheter Procedure Today N32.81 - Overactive bladder, N39.0 - Urinary tract infection, site not specified, R32 - Unspecified urinary incontinence, R35.0 - Frequency of micturition, R39.15 - Urgency of urination AMB Cystoscopy Today N32.81 - Overactive bladder, N39.0 - Urinary tract infection, site not specified, R30.0 - Dysuria, R32 - Unspecified urinary incontinence, R35.0 - Frequency of micturition, R39.15 - Urgency of urination Patient Instructions: The patient had an opportunity to ask questions regarding treatment plan. The patient expressed understanding and agreement with the above treatment plan. The patient is aware they should contact our office by phone for worsening of their current condition or the appearance of new symptoms. Compliance is encouraged with any medications and followup testing that is ordered. It is a privilege to be allowed the opportunity to participate in the urologic care of your patient. If you have any questions or concerns regarding treatment for the above conditions please do not hesitate to contact me. The office telephone contact is [phone]. This note is constructed in part using voice recognition software. While every effort has been made to ensure accuracy email marketing executive errors may have been included. Yours sincerely, Veronica Sharma MD Coding Level of Care Code Procedure Only Diagnoses OAB (overactive bladder) N32.81 Detrusor overactivity N32.81 CPT Codes Bladder/Catheter Procedure - CPT: 75225-Mhfeog Bladder Catheter ([id number]) Cystoscopy - CPT: 96019-Skvxizfljo ([id number]) Cystoscopy - CPT: 33956 - Botox Injection, urethra or bladder ([id number])
== END 2025-02-03 15:18 | disposition home or self-care (01) ==
LOC: HO.HUSH 13:12
PROVIDERS: PCP Internal Medicine; Visit Provider Urology
DX: R30.0 Dysuria (principal); R32 Unspecified urinary incontinence; R39.15 Urgency of urination; R35.0 Frequency of micturition; N32.81 Overactive bladder; N39.0 Urinary tract infection, site not specified
CPT/HCPCS: 52287

== ENCOUNTER → 2025-02-03 13:11 | Outpatient (BNVA) | payer OTHER, SELFPAY | PROVIDERS: PCP Internal Medicine; Visit Provider Urology | DX: N32.81 Overactive bladder (principal); N39.0 Urinary tract infection, site not specified; R32 Unspecified urinary incontinence; R35.0 Frequency of micturition; R39.15 Urgency of urination; R30.0 Dysuria | CPT/HCPCS: 52287; 81003; J0585 ==

== ENCOUNTER 2025-02-07 14:17 | Outpatient (AMB) | payer OTHER, SELFPAY ==
--- OUTSIDE RECORDS SUMMARY | 2024-05-06 08:00 | XMS_ITS ---
Author Organization [facility] Address [address] [place] [address] Care Team Providers Care Personnel Scheduler Name Role Phone Vicky Whitman Primary Care Provider Unavailabl Ephraim Bhagat Unavailable [phone] Encounters Encounter Location Date Provider Diagnosis [address] [address] 05/06/2024 Ephraim Fuentes Plan Of Treatment Next Appt Details Provider Name:Ephraim Fuentes , 03/10/2025 11:15:00 AM, [address] [place] [address], [phone], Progress Notes * DELPianDOB:10/1954 (69 yo F)Acc No.[id number]:05/06/2024 Progress Note Patient: Missy DEVINEEPIFANIOPina LUNDY Provider: Coleman Fuentes DPM :1955 A ge:69 Y S ex:Female Date:05/06/2024 Address:[address] [place] [address] [address], [id number] Pcp:Vicky Whitman Subjective: * Chief Complaints: * [...] 07/07/2023 Generated for Sirisha pressley/Jasmeet/Ankita on: 0 02/07/2025 05:32 PM EDT
--- OUTSIDE RECORDS SUMMARY | 2024-08-16 09:30 | XMS_ITS ---
Author Organization [facility] Address [address] [place] [address] Care Team Providers Care Director Of Patient Safety Name Role Phone Vicky Whitman Primary Care Provider Unavailabl Ephraim Bhagat Unavailable [phone] Encounters Encounter Location Date Provider Diagnosis [address] [address] 08/16/2024 Ephraim Fuentes Plan Of Treatment Next Appt Details Provider Name:Ephraim Fuentes , 03/10/2025 11:15:00 AM, [address] [place] [address], [phone], Progress Notes * DELPinaDOB:10/1954 (69 yo F)Acc No.[id number]:08/16/2024 Progress Note Patient: Missy MOHANJANINEPina Provider: Coleman Fuentes DPM :1955 A ge:69 Y S ex:Female Date:08/16/2024 Address:[address] [place] [address] [address], [id number] Pcp:Vikcy Whitman Subjective: * Chief Complaints: * * [...] 08/16/2024 Generated for Sirisha pressley/Louise on: 0 02/07/2025 05:32 PM EDT
--- OUTSIDE RECORDS SUMMARY | 2024-11-07 10:45 | XMS_ITS ---
Author Organization [facility] Address [address] [place] [address] Care Team Providers Care Library Associate Name Role Phone Vicky Whitman Primary Care Provider Unavailabl Ephraim Bhagat Unavailable [phone] REASON FOR VISIT Seen Sooner Encounters Encounter Location Date [facility] [address] 11/07/2024 Ephraim Fuentes Plan Of Treatment Next Appt Details Provider Name:Ephraim Fuentes , 03/10/2025 11:15:00 AM, [address] [place], [address], Progress Notes * DELPinaDOB:10/1954 (69 yo F)Acc No.[id number]:11/07/2024 Progress Note Patient: Missy MACIASOLIVIAPina Provider: Coleman Fuentes DPM :1955 A ge:69 Y S ex:Female Date:11/07/2024 Address:[address] [place] [address] [address], [address] [facility] Pcp:Vicky Whitman Subjective: * Chief Complaints: * [...] 0 11/07/2024 Generated for Sirisha pressley/Jasmeet/Ankita on: 02/07/2025 05:32 PM EDT
--- NOTE | 2025-02-07 14:46 | AM.OFFVISNUR ---
Intake Visit Reasons: PVR/UA Allergies LATEX Allergy (Intermediate, Verified 02/03/25 13:28) rash MOLD Allergy (Intermediate, Verified 02/03/25 13:28) rash NONORGANIC FOOD Allergy (Intermediate, Verified 02/03/25 13:28) diarrhea Yeast Allergy (Intermediate, Verified 02/03/25 13:28) Diarrhea empagliflozin (From Jardiance) Adverse Reaction (Intermediate, Verified 02/03/25 13:28) Vaginal candidiasis Office Procedures Post Void Residual Post Residual Void Post Void Residual (PVR): 96 80058-Sjnp Void Residual by ultrasound Assessment & Plan Assessment & Plan Orders: Orders AMB Post Void Residual by ultrasound Today R30.0 - Dysuria, R32 - Unspecified urinary incontinence AMB Urinalysis Automated Today R30.0 - Dysuria, R32 - Unspecified urinary incontinence Urine Culture Today R30.0 - Dysuria, R32 - Unspecified urinary incontinence Coding CPT Codes Post Residual Void - PVR CPT Code: 24649-Zpoq Void Residual by ultrasound ([id number])
--- OUTSIDE RECORDS SUMMARY | 2025-02-07 17:32 | XMS_ITS | Patient Health Record ---
Author Organization [facility] Address [address] [place] [address] Care Team Providers Care Field Artillery Basic Name Role Phone Po Vicky BROCK Primary Care Provider Ras Rios [phone] Allergies Allergen (clinical drug ingredient) Drug/Non Drug [...] Problem Status W/U Status Risk Notes Problem [id number] Encounter for screening for malignant neoplasm of colon (Z12.11) Active confirmed Problem 930107277262121 Preprocedural examination (Z01.818) Active confirmed Problem 917819502 Irregular bowel habits (R19.8) Active confirmed Problem Diverticulosis of colon (896262456) Diverticulosis of colon (K57.30) Active confirmed Problem 984871170437900 History of Clostridioides difficile infection (Z86.19) Active confirmed Plan Of Treatment Future Test Test Name Order Date COLONOSCOPY 06/08/2019 COLONOSCOPY 08/07/2021 Insurance Providers Payer Name Payer Address Payer Phone Subscriber Number Group Number Insured Name Patient Relationship to Insured Coverage Start Date Coverage End Date [facility] [address] [place] [address] [id number] MARCELINA GEIGER Self - patient is the insured Medical (General) History Medical History History ICD Code Denies CVA,renal disease COPD [place]--s/p stent placement in 2015 Hypertension Glaucoma Neg [...]
--- OUTSIDE RECORDS SUMMARY | 2025-02-07 17:32 | XMS_ITS | Patient Health Record ---
[facility] Address [address] [place] [address] Care Team Providers Care Ob Scrub Tech Name Role Phone Vicky Whitman Primary Care Provider Ephraim Mercado Unavailable [phone] Allergies Allergen (clinical drug ingredient) Drug/Non Drug [...] Ready to quit Additional Findings: Tobacco user Stefania l cigarette smoker (less than 1 cig/day) AUDIT-C (Standard) Question Answer Notes Did you have a drink containing alcohol in the p ast year? No Points 0 Interpretation Negative Problems Problem Type SNOMED Code ICD Code Onset Dates Problem Status W/U Status Risk Notes Problem Acquired hammer toe of right foot (5742556126843506 ) Other hammer toe(s) (acquired), right foot (M20.41) Active confirmed Response to treatment, Improvemen t Problem Acquired hammer toe of left foot (8831310457731690 ) Other hammer toe(s) (acquired), left foot (M20.42) Active confirmed Response to treatment, Improvemen t Problem Polyneuropathy due to type 2 diabetes mellitus (412534433) Type 2 diabetes mellitus with diabetic polyneuropathy (E11.42) Active confirmed Vital Signs Blood pressure diastolic 60 mm Hg 12/06/2024 Height 5ft in 12/06/2024 Blood pressure systolic 130 mm Hg 12/06/2024 Weight 162 lbs 12/06/2024 BMI 31.64 kg/m2 12/06/2024 Procedures Procedure Date Ordered Date Performed Result Body Sit e 70966-GMOSQRT NAIL, 6 OR MORE 08/26/2024 N/A 38400-RYYM SKIN LESIONS, OVER 4 08/26/2024 N/A 86903-ILSQTPG NAIL, 6 OR MORE 12/06/2024 N/A 54719-HWAG SKIN LESIONS, OVER 4 12/06/2024 N/A Encounters Encounter Location Date Provider Diagnosis [address] [address] 08/26/2024 Ephraimbarrett Fuentes Type 2 diabetes mellitus with diabetic polyneuropathy E11.42 ; Tinea unguium B35.1 ; Other hammer toe(s) (acquired), right foot M20.41 and Other hammer toe(s) (acquired), left foot M20.[address] [address] 12/06/2024 Ephraim Fuentes Type 2 diabetes mellitus with diabetic polyneuropathy E11.42 and Tinea unguium B35.[address] [address] 05/04/2024 Ephraim Fuentes [address] [address] 08/16/2024 Ephraim Fuentes Assessments Encounter Date Diagnosis [...] Treatment Pending Test Test Name Order Date 81531-YLVUSWZ NAIL, 6 OR MORE 09/11/2020 98874-MHIUADU NAIL, 6 OR MORE 12/25/2020 22798-EZYURGS NAIL, 6 OR MORE 07/31/2021 34671-RLCTKBY NAIL, 6 OR MORE 11/20/2021 99503-UWPZCAS NAIL, 6 OR MORE 01/31/2022 81059-CVCNXHK NAIL, 6 OR MORE 04/25/2022 25747-SPDJRNA NAIL, 6 OR MORE 08/29/2022 19467-PRWHOID NAIL, 6 OR MORE 11/14/2022 65257-PULSIOP NAIL, 6 OR MORE 03/24/2023 96918-VOHIGVV NAIL, 6 OR MORE 11/23/2023 33221-SUAMKOR NAIL, 6 OR MORE 02/02/2024 38900-GXZYCDX NAIL, 6 OR MORE 08/26/2024 60788-IEXZXRP NAIL, 6 OR MORE 12/06/2024 78185-UEKB SKIN LESIONS, OVER 4 12/07/19 25 06905-KEUG SKIN LESIONS, OVER 4 08/27/19 25 09044-OLJM SKIN LESIONS, OVER 4 02/02/20 24 40631-TJXK SKIN LESIONS, OVER 4 11/23/19 24 55349-CJKT SKIN LESIONS, OVER 4 03/24/20 23 01970-OFTN SKIN LESIONS, OVER 4 11/15/19 23 39271-SOXC SKIN LESIONS, OVER 4 08/30/19 23 07419-MPDI SKIN LESIONS, OVER 4 04/25/20 22 86008-GWLU SKIN LESIONS, OVER 4 02/01/20 22 46906-PFRM SKIN LESIONS, OVER 4 11/21/19 22 23414-NYDN SKIN LESIONS, OVER 4 08/01/19 22 40745-JPGG SKIN LESIONS, 2 TO 4 12/26/19 21 Next Appt Details Provider Name:Ephraim Fuentes , 03/10/2025 11:15:00 AM, [address] [place] [address], [phone], Insurance Providers Payer Name Payer Address Payer Phone Subscriber Number Group Number Insured Name Patient Relationship to Insured Coverage Start Date Coverage End Date [facility] [employer] SCO Claims [address] [place] [phone] [id number] Pina Gaytan Self - patient is [...] [facility] [place] from [facility]-1 we ek given steroids 03/19/2022
== END 2025-02-07 16:12 | disposition home or self-care (01) ==
LOC: HO.HUSH 14:18
PROVIDERS: PCP Internal Medicine; Visit Provider Urology
DX: R30.0 Dysuria (principal); R32 Unspecified urinary incontinence

== ENCOUNTER 2025-02-07 14:17 | Outpatient (REF) | payer OTHER, SELFPAY | END 2025-02-07 14:18 | disposition home or self-care (01) | LOC: HO.LAB 14:17 | PROVIDERS: PCP Internal Medicine; Visit Provider Urology | DX: R30.0 Dysuria (principal); R32 Unspecified urinary incontinence | CPT/HCPCS: 51798; 81003; 87086; 87088; 87186 ==

== ENCOUNTER 2025-02-20 11:25 | Outpatient (REF) | payer OTHER, SELFPAY | END 2025-02-20 11:26 | disposition home or self-care (01) | LOC: HO.LAB 11:25 | PROVIDERS: PCP Internal Medicine; Visit Provider Urology | DX: R32 Unspecified urinary incontinence (principal); Z13.89 Encounter for screening for other disorder | CPT/HCPCS: 51798; 81003; 87086 ==

== ENCOUNTER 2025-02-20 11:25 | Outpatient (AMB) | payer OTHER, SELFPAY ==
--- OUTSIDE RECORDS SUMMARY | 2024-05-06 08:00 | XMS_ITS ---
Author Organization [facility] Address [address] [place] [address] Care Team Providers Care Medicare Contact Specialist Name Role Phone Vicky Whitman Primary Care Provider Unavailabl Ephraim Bhagat Unavailable [phone] Encounters Encounter Location Date Provider Diagnosis [address] [address] 05/06/2024 Ephraim Fuentes Plan Of Treatment Next Appt Details Provider Name:Ephraim Fuentes , 03/10/2025 11:15:00 AM, [address] [place] [address], [phone], Progress Notes * DELPinaDOB:10/1954 (69 yo F)Acc No.[id number]:05/06/2024 Progress Note Patient: Missy DEVINEEPIFANIOPina LUNDY Provider: Coleman Fuentes DPM :1955 A ge:69 Y S ex:Female Date:05/06/2024 Address:[address] [place] [address] [address], [id number] Pcp:Vicky Whitman Subjective: * Chief Complaints: * [...] DPM Date: 1 07/07/2023 Generated for Sirisha pressley/Louise on: 1 02:04 PM EDT
--- OUTSIDE RECORDS SUMMARY | 2024-08-16 09:30 | XMS_ITS ---
Author Organization [facility] Address [address] [place] [address] Care Team Providers Care Reprographics Technician Name Role Phone Vicky Whitman Primary Care Provider Unavailabl Ephraim Bhagat Unavailable [phone] Encounters Encounter Location Date Provider Diagnosis [address] [address] 08/16/2024 Ephraim Fuentes Plan Of Treatment Next Appt Details Provider Name:Ephraim Fuentes , 03/10/2025 11:15:00 AM, [address] [place] [address], [phone], Progress Notes * DELPinaDOB:10/1954 (69 yo F)Acc No.[id number]:08/16/2024 Progress Note Patient: Missy MOHANJANINEPina Provider: Coleman Fuentes DPM :1955 A ge:69 Y S ex:Female Date:08/16/2024 Address:[address] [place] [address] [address], [id number] Pcp:Vicky Whitman Subjective: * Chief Complaints: * [...] 0 08/16/2024 Generated for Sirisha pressley/Louise on: 1 02:04 PM EDT
--- OUTSIDE RECORDS SUMMARY | 2024-11-07 10:45 | XMS_ITS ---
Author Organization [facility] Address [address] [place] [address] Care Team Providers Care Blindmaker Name Role Phone Vicky Whitman Primary Care Provider Unavailabl Ephraim Bhagat Unavailable [phone] REASON FOR VISIT Seen Sooner Encounters Encounter Location Date [facility] [address] 11/07/2024 Ephraim Fuentes Plan Of Treatment Next Appt Details Provider Name:Ephraim Fuentes , 03/10/2025 11:15:00 AM, [address] [place], [address], Progress Notes * DELPinaDOB:10/1954 (69 yo F)Acc No.[id number]:11/07/2024 Progress Note Patient: Missy MACIASOLIVIAPina Provider: Coleman Fuentes DPM :1955 A ge:69 Y S ex:Female Date:11/07/2024 Address:[address] [place] [address] [address], Pat [id number] Pcp:Vicky Whitman Subjective: * Chief Complaints: * [...] DPM Date: 0 11/07/2024 Generated for Sirisha pressley/Jasmeet/Ankita on: 1 02:05 PM EDT
--- NOTE | 2025-02-20 11:53 | AM.OFFVISNUR ---
Intake Visit Reasons: 2W botox Allergies LATEX Allergy (Intermediate, Verified 02/03/25 13:28) rash MOLD Allergy (Intermediate, Verified 02/03/25 13:28) rash NONORGANIC FOOD Allergy (Intermediate, Verified 02/03/25 13:28) diarrhea Yeast Allergy (Intermediate, Verified 02/03/25 13:28) Diarrhea empagliflozin (From Jardiance) Adverse Reaction (Intermediate, Verified 02/03/25 13:28) Vaginal candidiasis Office Procedures Post Void Residual Post Residual Void Details: Patient presents to the office for a PVR check s/p bladder botox. She reports she has a lot of frequency and burning with urination. Patient voided and urine appears dark yellow and cloudy. PVR scan was 286ml. She does report intermittent bladder pressure. Urine dipped in office had 3+ leukocytes but negative for nitrites. Urine will be sent for urine culture. Reviewed with Ritika Saavedra NP. Patient will start on Ciprofloxacin x7 days and return to office for a PVR in 2 weeks to assure she is emptying. Post Void Residual (PVR): 286 32654-Jqxq Void Residual by ultrasound Assessment & Plan Assessment & Plan Orders: Orders AMB Urinalysis Automated Today Z13.9 - Encounter for screening, unspecified AMB Post Void Residual by ultrasound Today R32 - Unspecified urinary incontinence Urine Culture Today R32 - Unspecified urinary incontinence Coding CPT Codes Post Residual Void - PVR CPT Code: 13411-Lffy Void Residual by ultrasound ([id number])
--- OUTSIDE RECORDS SUMMARY | 2025-02-20 14:04 | XMS_ITS | Patient Health Record ---
Author Organization [facility] Address [address] [place] [address] Care Team Providers Care Supply Controller Name Role Phone Po Vicky BROCK Primary Care Provider Ras Rios [phone] Allergies Allergen (clinical drug ingredient) Drug/Non Drug [...] Problem Status W/U Status Risk Notes Problem 424489685 Encounter for screening for malignant neoplasm of colon (Z12.11) Active confirmed Problem 462463601355693 Preprocedural examination (Z01.818) Active confirmed Problem 260216961 Irregular bowel habits (R19.8) Active confirmed Problem Diverticulosis of colon (358705076) Diverticulosis of colon (K57.30) Active confirmed Problem 135485744597072 History of Clostridioides difficile infection (Z86.19) Active confirmed Plan Of Treatment Future Test Test Name Order Date COLONOSCOPY 06/08/2019 COLONOSCOPY 08/07/2021 Insurance Providers Payer Name Payer Address Payer Phone Subscriber Number Group Number Insured Name Patient Relationship to Insured Coverage Start Date Coverage End Date [facility] [address] [place] [phone] [id number] MARCELINA GEIGER Self - patient is the insured Medical (General) History Medical History History ICD Code Denies CVA,renal disease COPD [place]--s/p stent placement in 2015 Hypertension Glaucoma Neg [...]
--- OUTSIDE RECORDS SUMMARY | 2025-02-20 14:04 | XMS_ITS | Patient Health Record ---
Author Organization [facility] Address [address] [place] [address] Care Team Providers Care Asphalt Paver Name Role Phone Vicky Whitman Primary Care Provider Ephraim Mercado Unavailable [phone] Allergies Allergen (clinical drug ingredient) Drug/Non Drug [...] Problem Acquired hammer toe of right foot (0875743720498001 ) Other hammer toe(s) (acquired), right foot (M20.41) Active confirmed Response to treatment, Improvemen t Problem Acquired hammer toe of left foot (4533375207542441 ) Other hammer toe(s) (acquired), left foot (M20.42) Active confirmed Response to treatment, Improvemen t Problem Polyneuropathy due to type 2 diabetes mellitus (018671818) Type 2 diabetes mellitus with diabetic polyneuropathy (E11.42) Active confirmed Vital Signs Blood pressure diastolic 60 mm Hg 12/06/2024 Height 5ft in 12/06/2024 Blood pressure systolic 130 mm Hg 12/06/2024 Weight 162 lbs 12/06/2024 BMI 31.64 kg/m2 12/06/2024 Procedures Procedure Date Ordered Date Performed Result Body Sit e 75272-TJVBIJL NAIL, 6 OR MORE 08/26/2024 N/A 62875-LJJZ SKIN LESIONS, OVER 4 08/26/2024 N/A 98030-YHRTYPE NAIL, 6 OR MORE 12/06/2024 N/A 89525-VBSZ SKIN LESIONS, OVER 4 12/06/2024 N/A Encounters Encounter Location Date Provider Diagnosis [address] [address] 08/26/2024 Ephraimbarrett Fuentes Type 2 diabetes mellitus with diabetic polyneuropathy E11.42 ; Tinea unguium B35.1 ; Other hammer toe(s) (acquired), right foot M20.41 and Other hammer toe(s) (acquired), left foot M20.[address] [address] 12/06/2024 Ephraim Fuentes Type 2 diabetes mellitus with diabetic polyneuropathy E11.42 and Tinea unguium B35.[address] [address] 05/04/2024 Ephraim Fuentes [address] [address] 08/16/2024 Ephraim Fuentes Assessments Encounter Date Diagnosis [...] Treatment Pending Test Test Name Order Date 70398-TNPAASV NAIL, 6 OR MORE 09/11/2020 31326-RRNKUJK NAIL, 6 OR MORE 12/25/2020 16109-EFHPFAG NAIL, 6 OR MORE 07/31/2021 45765-VLDHATD NAIL, 6 OR MORE 11/20/2021 88462-TBLMCWN NAIL, 6 OR MORE 04/25/2022 86188-ELQAPDB NAIL, 6 OR MORE 11/14/2022 24240-NZZUBWT NAIL, 6 OR MORE 03/24/2023 64861-LBATOMX NAIL, 6 OR MORE 11/23/2023 15162-TKUCYRM NAIL, 6 OR MORE 02/02/2024 88250-LXRIPUU NAIL, 6 OR MORE 08/26/2024 30253-MJULKGP NAIL, 6 OR MORE 12/06/2024 25618-ECYGDXZ NAIL, 6 OR MORE 01/31/2022 35990-PDZRZKW NAIL, 6 OR MORE 08/29/2022 96548-LNAZ SKIN LESIONS, OVER 4 08/30/19 23 61891-KCKA SKIN LESIONS, OVER 4 02/01/20 22 95321-HGAS SKIN LESIONS, OVER 4 12/07/19 25 99310-TMKM SKIN LESIONS, OVER 4 08/27/19 25 73134-SOWT SKIN LESIONS, OVER 4 02/02/20 24 19487-VYXL SKIN LESIONS, OVER 4 11/23/19 24 68686-YCJC SKIN LESIONS, OVER 4 03/24/20 23 32895-MNXU SKIN LESIONS, OVER 4 11/15/19 23 74093-QBUW SKIN LESIONS, OVER 4 04/25/20 22 90464-OPGT SKIN LESIONS, OVER 4 11/21/19 22 50629-KIJS SKIN LESIONS, OVER 4 08/01/19 22 30885-QIYZ SKIN LESIONS, 2 TO 4 12/26/19 21 Next Appt Details Provider Name:Ephraim Fuentes , 03/10/2025 11:15:00 AM, [address] [place] [address], [phone], Insurance Providers Payer Name Payer Address Payer Phone Subscriber Number Group Number Insured Name Patient Relationship to Insured Coverage Start Date Coverage End Date [facility] CCA SCO Claims [address] [place] [id number] Pina Gaytan Self - patient is the insured Medical (General) History Medical History History ICD Code Angina Anxiety Arthritis Back,Hip,and Knee pain CAD (Cholesterol) Cataracts Depression Diabetic border line Glaucoma Heart disease High blood pressure Chicken pox Measles Mumps thyroid UTI's Diabetes type ll Surgical History Surgery Date(Month/Year) 1988,1993 Stent/implant R eye 06/2015 cataract surgery Hospitalization History Reason Date(Month/Year) [facility] [place]thrush mouth from [facility]-1 we ek given steroids 03/19/2022
== END 2025-02-20 12:27 | disposition home or self-care (01) ==
LOC: HO.HUSH 11:26
PROVIDERS: PCP Internal Medicine; Visit Provider Urology
DX: Z13.9 Encounter for screening, unspecified (principal)

== ENCOUNTER → 2025-03-06 10:52 | Outpatient (BNVA) | payer OTHER, SELFPAY | PROVIDERS: PCP Internal Medicine; Visit Provider Urology | DX: N32.81 Overactive bladder (principal); N39.0 Urinary tract infection, site not specified | CPT/HCPCS: 51798 ==

== ENCOUNTER 2025-04-12 11:19 | Outpatient (AMB) | payer OTHER, SELFPAY ==
[2025-04-12 11:29] VITALS: BP 102/52; PULSE 67; O2SAT 98
--- NOTE | 2025-04-12 11:29 | A.OFFPC_ITS ---
Vital Signs 04/12/25 11:29 Height 5 ft 1 in Weight 159 lb BMI 30.0 BP 102/52 L Blood Pressure Location Lt brachial Position Sitting Pulse 67 Pulse Source Pulse Oximeter Pulse Oximetry (%) 98 Oxygen Delivery Method Room Air Intake Visit Reasons: DM Intake Note: Dizzy spells Allergies LATEX Allergy (Intermediate, Verified 04/12/25 11:29) rash MOLD Allergy (Intermediate, Verified 04/12/25 11:29) rash NONORGANIC FOOD Allergy (Intermediate, Verified 04/12/25 11:29) diarrhea Yeast Allergy (Intermediate, Verified 04/12/25 11:29) Diarrhea empagliflozin (From Jardiance) Adverse Reaction (Intermediate, Verified 04/12/25 11:29) Vaginal candidiasis Medication List - Last Reconciled 04/12/25 by Vciky Whitman MD albuterol sulfate 90 mcg/actuation (Proventil HFA) 2 puffs inhalation Q6H PRN ammonium lactate 12% 1 appl topical BID amoxicillin-pot clavulanate 875-125 mg 1 tab PO BID aspirin (Adult Low Dose Aspirin) 81 mg PO DAILY atorvastatin 80 mg PO DAILY [BEDSIDE COMMODE As directed] betamethasone dipropionate 0.05% apply to hands twice daily Breo Ellipta 200-25 mcg/dose (fluticasone furoate-vilanterol) 1 ea PO DAILY 90 days NS cholecalciferol (vitamin D3) 25 mcg PO DAILY [Chux pads As directed] clonazepam 1 mg PO Q8H clotrimazole 1% 1 appl topical BID 4 weeks [commode As directed] [commode liners As directed] [diabetic shoes As directed] [Disposable liners/shield/pad As directed] estradiol 0.01%(0.1mg/gram) vaginally 3 times a week; pea sized amount to urethra 3 times a week 30 days ezetimibe (Zetia) 10 mg PO BEDTIME fexofenadine (Paulette Allergy) 180 mg PO DAILY flash glucose scanning reader (FreeStyle Dany 2 Wynot) As directed flash glucose sensor (FreeStyle Dany 2 Sensor kit) As directed fluticasone propionate 50 mcg/actuation 2 sprays intranasal DAILY gabapentin 100 mg PO BEDTIME [GRABBER TOOL As directed] hydrocortisone 2.5% (Proctosol HC) 1 appl MN BID-QID PRN incontinence pad, liner, disp 8 pads per day [id number] Contour Plus BC pad , Inco, Max, swo incontinence pad, liner, disp As directed [incontinent wipes As directed] lactulose 15 mL PO DAILY 90 days levothyroxine 100 mcg PO DAILY [LIFT RECLINER As directed] metformin 1,000 mg PO BID 90 days metoprolol succinate ER 25 mg PO DAILY mirabegron ER (Myrbetriq) 50 mg PO DAILY miscellaneous medical supply As directed nicotine (polacrilex) 2 mg buccal Q2H nitroglycerin 0.4 mg sublingual Q5M PRN 30 days nystatin (Nystop) 1 appl topical BID oxycodone 5 mg PO BID 30 days [Pad bladder ultra As directed 8 times day ] [REUSABLE UNDERPAD BED Size As directed] tafluprost (PF) 0.0015% (Zioptan (PF)) 1 drp ophthalmic (eye) QPM timolol maleate (PF) 0.5% 1 drp ophthalmic (eye) BID tirzepatide (Mounjaro) 2.5 mg (0.5 mL) subcut QWEEK venlafaxine ER 75 mg PO BEDTIME [WIPES As directed] Tobacco use date assessed: 01/10/25 Fall risk assessment: No Falls in past year Last assessed Fall Risk: 04/12/25 Dental Screening Dental Screen Date: 01/10/25 HPI DM HPI Details still smoking, has candidal intertrigo, states lighheaded HPI Comments History of Present Illness Details History of Present Illness The patient is a 70-year-old individual presenting for a follow-up visit. The patient is obese and has had a recent 7-pound weight loss. The patient has a history of hypertension, hypothyroidism, coronary artery disease, hypercholesterolemia, COPD, GERD, and diabetes mellitus. The patient is also a smoker. The patient has a history of a tubular adenoma of the colon, with the last colonoscopy performed in 2021. For an overactive bladder, the patient follows with urology and receives Botox injections, with the last treatment on February 03. For COPD, the patient was seen by pulmonary on January 30 and is considered stable, although the patient continues to smoke. The patient is enrolled in a lung cancer screening program. Health maintenance screenings show a mammogram is due, and the last bone density scan was in 2018. Blood work from August 26 showed a normal blood count, good electrolytes, and good renal function. A hemoglobin A1c on December 15 was 7.2%. The patient reports needing hip replacement surgery due to significant pain and has also canceled eye surgery three times. Health Maintenance The patient was reminded that a mammogram is due. Follow-up on the bone density scan, last performed in 2018, is indicated. The patient is due for lab work. A discussion on diet and exercise was included in the plan. Social History - Substance Use: The patient is a curren t smoker. - Weight Management: A 7-pound weight lo ss was noted. Results - Labs (as of August 26): Blood count nor mal, electrolytes good, renal function good. - Labs (as of December 15): Hemoglobin A1c w as 7.2%. - Procedures: Last colonoscopy in 2021 r evealed a tubular adenoma. - Imaging: Last bone density scan was in 2018. [facility] Medical History Dysuria Anxiety and depression Thrush, oral Allergic rhinitis Franky's disease Goiter diffuse Cataract Glaucoma Tobacco abuse Type 2 diabetes mellitus with hyperglycemia GERD (gastroesophageal reflux disease) Obesity (BMI 30-39.9) COPD (chronic obstructive pulmonary disease) Coronary artery disease Carpal tunnel syndrome Hypercholesterolemia Hypothyroid Hypertension Surgical History Hx of section History of tubal ligation Family History Father Myocardial infarct Maternal Grandmother Breast cancer Mother Pancreatic cancer Sister Bipolar 1 disorder Other Mental problem Social History Household Members: Family Housing: House Do you presently have visiting nurse or other home services: No Alcohol intake: current Alcohol intake frequency: holidays/special occasions only Patient Tobacco Use Status: Current someday Tobacco user Tobacco use type: Cigarette Cigarette Packs Per Day: 0.5 Cigarettes Per Day: 4 Years Smoked: 4 cigarettes a day Packs Per Year: 0 Packs per year/per ci.00 e-Cigarette/Vaping Use: Currently Using Second Hand Smoke Exposure: Yes Advance Directives Date on File: 03/21/22 service: No Current occupational status: disabled Cognitive needs: No Hearing needs: No Vision needs: Yes Questionnaire Thrive Questionnaire Date Thrive assessed: 12/15/24 I am a: Patient What is your living situation today?: I have a steady place to live Within the past 12 months, did the food you bought not last and you didn't have the money to get more?: Sometimes True Within the past 12 months, did you worry whether your food would run out before you got money to buy more?: Sometimes True Do you have trouble paying for medicines?: No Do you have trouble getting transportation to medical appointments?: No Do you have trouble paying your heating and electricity bill?: No Do you have trouble taking care of your child, family member or friend?: No Do you have trouble with day-to-day activities such as bathing, preparing meals, shopping, managing finances, etc.?: Yes Are you currently unemployed and looking for a job?: I choose not to answer this question Are you interested in more education?: No Please select the resources that you would like help with: None Currently or been in a relationship where the following occur: No concerns reported THRIVE Score: 2 RYLAN-7 AMB Questionnaire RYLAN-7 Date RYLAN - 7 assessed: 08/19/24 Source: Developed by Drs. Ras Asif, Kim Jones, Dyllan Norris and colleagues, with an educational kosta from [employer]. Review of Systems Narrative Review of Systems - Musculoskeletal: Reports significant hip pain, desiring surgery. - Eyes: Reports needing surgery on the left eye to preserve sight. - Genitourinary: Reports ongoing need to wear a pad for bladder issues. - Constitutional: Reports feeling that infections are a recurring issue. - Skin: Denies scratching the affected area of skin. Physical exam (Primary Care) Vital Signs: Last Vital Signs Pulse 67 04/12/25 11:29 BP 102/52 L 04/12/25 11:29 Pulse Ox 98 04/12/25 11:29 Oxygen Delivery Method Room Air 04/12/25 11:29 BMI result Body Mass Index 30.0 Tobacco/Smoking Status: Tobacco use Status Tobacco use date assessed 01/10/25 04/12/25 11:31 Patient Tobacco Use Status Current someday Tobacco 04/12/25 11:31 Tobacco use type Cigarette 04/12/25 11:31 e-Cigarette/Vaping Use Currently Using 04/12/25 11:31 Thrive Assessment: Date of Thrive Assessment Date Thrive assessed 12/15/24 04/12/25 11:31 Currently or been in a relationship where the following occur: No concerns reported Narrative Physical Exam - Integumentary: Examination of an unspecified skin area revealed erythema; the area appears infected. Const General: alert; No acute distress Eyes Conjunctivae: conjunctivae normal Resp Auscultation: clear to auscultation bilaterally Cardio Rate: regular rate Rhythm: regular rhythm GI Inspection: Yes normal to inspection Extrem Other: Right groin with an erythematous rash 4 x 5 in with a central pucker of skin,? 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 transplanted heart: [place] heart Generalized anxiety disorder F41.1 Acquired hypothyroidism E03.9 Hypothyroidism type: acquired Obesity (BMI 30-39.9) E66.9 Gastroesophageal reflux disease without esophagitis K21.9 Esophagitis presence: without esophagitis Pulmonary emphysema, unspecified emphysema type J43.9 COPD type: emphysema Emphysema type: unspecified Tobacco abuse Z72.0 Breast cancer screening by mammogram Z12.31 Cellulitis of right groin L03.314 Assessment & Plan Assessment & Plan (1) Type 2 diabetes mellitus with hyperglycemia: Comment: Dr. Mujica and Dr. Zaldivar Code(s): E11.65 - Type 2 diabetes mellitus with hyperglycemia Category: Medical Qualifiers: Diabetes mellitus custodial insulin use: without custodial use Qualified Code(s): E11.65 - Type 2 diabetes mellitus with hyperglycemia Plan: Decrease the amount of carbohydrate intake, pasta, bread, rice and potatoes are all sugar and that is aside from all the sweet stuff, remember that fruits are good but they are Sweet also. Hemoglobin A1c goal of less than 7.0. Patient on metformin a 1000 mg twice a day Donte prescription sent in 2.5 mg once a week (2) Hypertension: Code(s): I10 - Essential (primary) hypertension Category: Medical Qualifiers: Hypertension type: essential hypertension Qualified Code(s): I10 - Essential (primary) hypertension Plan: Continue with blood pressure medication. Decrease salt intake and exercise on lisinopril 30 mg once a day, metoprolol 25 mg once a day but the BP is low and stop lisinopril (3) Hypercholesterolemia: Code(s): E78.00 - Pure hypercholesterolemia, unspecified Category: Medical Plan: Avoid fried foods, chicken skin, eggs, butter margarine, pastries and meat. Be it pork or beef they have a lot of cholesterol LDL goal of less than 70 and triglyceride of less than 150 patient needs blood work patient is on Zetia and atorvastatin 80 mg once a day (4) Coronary artery disease: Comment: Echo April 2019 normal LV Pseudonormal filling, pericardial effusion July 2019 moderate pericardial effusion PCI done [facility] June 2015 Code(s): I25.10 - Atherosclerotic heart disease of [place] coronary artery without angina pectoris Category: Medical Qualifiers: Associated angina: without angina Coronary Disease-Associated Artery/Lesion type: [place] artery [place] vs. transplanted heart: [place] heart Qualified Code(s): I25.10 - Atherosclerotic heart disease of [place] coronary artery without angina pectoris Plan: Control the cholesterol, weight, blood pressure, diabetes continue with aspirin 81 mg once a day (5) Generalized anxiety disorder: Comment: Pina does have chronic anxiety syndrome, stable at this time Code(s): F41.1 - Generalized anxiety disorder Category: Medical Plan: Continue with present medication of clonazepam as needed gabapentin and venlafaxine (6) Hypothyroid: Code(s): E03.9 - Hypothyroidism, unspecified Category: Medical Qualifiers: Hypothyroidism type: acquired Qualified Code(s): E03.9 - Hypothyroidism, unspecified Plan: Continue with thyroid medication (7) Obesity (BMI 30-39.9): Code(s): E66.9 - Obesity, unspecified Category: Medical Plan: Diet and exercise (8) GERD (gastroesophageal reflux disease): Code(s): K21.9 - Gastro-esophageal reflux disease without esophagitis Category: Medical Qualifiers: Esophagitis presence: without esophagitis Qualified Code(s): K21.9 - Gastro-esophageal reflux disease without esophagitis Plan: Avoid the foods that causes that usually spicy foods, tomato products, juices, coffee, soda and foods that your sensitive to. After eating do not lie down, allow 3-4 hours before in lie down. And keep the head of bed above 30 degrees to avoid the acid from going up. (9) COPD (chronic obstructive pulmonary disease): Comment: Chronic, mild to moderate COPD, and she also has moderate degree of restrictive disorder. Overall it is staying stable. Code(s): J44.9 - Chronic obstructive pulmonary disease, unspecified Category: Medical Qualifiers: COPD type: emphysema Emphysema type: unspecified Qualified Code(s): J43.9 - Emphysema, unspecified Plan: Patient is strongly advised to stop smoking summation point patient follows up with Pulmonary and is stable (10) Tobacco abuse: Comment: SHE CONTINUES TO SMOKE ABOUT 4-5 CIGARETTES A DAY. COUNSELED THAT SHE SHOULD STOP SMOKING COMPLETELY . . HER COUGH AND CONGESTED FEELING IN THE UPPER AIRWAYS IS MOSTLY SECONDARY TO SMOKING. SHE IS TRYING HER BEST TO CUT DOWN THE NUMBER OF CIGARETTES. Code(s): Z72.0 - Tobacco use Category: Medical Plan: Patient is strongly advised to stop smoking patient point (11) Breast cancer screening by mammogram: Code(s): Z12.31 - Encounter for screening mammogram for malignant neoplasm of breast Category: Medical Plan: Reminded about mammogram (12) Cellulitis of right groin: Code(s): L03.314 - Cellulitis of groin Category: Medical Plan Plan Patient was informed and verbally consented to the use of an ambient scribe for clinic note documentation during this visit. 1. Diabetes Mellitus The patient's hemoglobin A1c was 7.2% on December 15, which is above the goal of less than 7.0%. The patient will continue metformin 1000 mg twice a day. A new prescription for Mounjaro 2.5 mg once a week was sent to the pharmacy. 2. Hypertension The patient will continue the current medication regimen, which includes lisinopril 30 mg once a day and metoprolol 25 mg once a day. 3. Hypercholesterolemia The goals are an LDL less than 70 and triglycerides less than 150. The patient needs to have blood work done. The patient will continue taking Zetia and atorvastatin 80 mg. 4. Skin Infection A physical exam revealed a red, infected area on the patient's skin. An oral antibiotic was prescribed to be taken twice a day for seven days. The patient was advised that the antibiotic can cause diarrhea and to consider taking a probiotic if that occurs. 5. Coronary Artery Disease The patient will continue taking aspirin 81 mg once a day. 6. Chronic Obstructive Pulmonary Disease The patient follows with a inbound ingredient logistics specialist and is stable. The patient was strongly advised to stop smoking. 7. Hypothyroidism The patient will continue the current thyroid medication. 8. Medication Management The patient will continue taking clonazepam as needed and venlafaxine. Discussion Notes I examined an area on the patient's skin which appeared red and infected. I prescribed an oral antibiotic to be taken twice daily for seven days. I advised the patient that the antibiotic may cause diarrhea and recommended taking a probiotic if that occurs. I sent in a new prescription for Mounjaro to help manage the patient's diabetes. I strongly advised the patient to stop smoking. I reminded the patient a mammogram is due and that new blood work is needed. Patient Instructions - Take the new antibiotic I prescribed for your skin infection. Take it twice a day for seven days. - You can take a probiotic if you get diarrhea from the antibiotic. - Start taking the new prescription for Mounjaro, 2.5 mg once a week, for your diabetes. - Continue your other medications as prescribed, including those for blood pressure, cholesterol, thyroid, and anxiety. - It is very important that you stop smoking. - You need to schedule an appointment for your mammogram. - Please go to the lab to have your blood work done. - Remember to follow up with your lung and bladder specialists. Orders: Orders AMB Hemoglobin A1c Today Z13.9 - Encounter for screening, unspecified Medications: New amoxicillin-pot clavulanate 875-125 mg 1 tab PO BID 14 tabs 0RF L03.314 - Cellulitis of groin Refilled clonazepam 1 mg PO Q8H 90 tabs 0RF Discontinued lisinopril Discontinued Reason: Doctor's Order 30 mg PO DAILY 90 days 90 tabs 2RF I10 - Essential (primary) hypertension
== END 2025-04-12 12:05 | disposition home or self-care (01) ==
LOC: HO.HMCH 11:20
PROVIDERS: PCP Internal Medicine; Visit Provider Internal Medicine
DX: E11.65 Type 2 diabetes mellitus with hyperglycemia (principal); I10 Essential (primary) hypertension; E78.00 Pure hypercholesterolemia, unspecified; I25.10 Atherosclerotic heart disease of native coronary artery without angina pectoris; F41.1 Generalized anxiety disorder; E03.9 Hypothyroidism, unspecified; E66.9 Obesity, unspecified; K21.9 Gastro-esophageal reflux disease without esophagitis; J43.9 Emphysema, unspecified; Z72.0 Tobacco use; Z12.31 Encounter for screening mammogram for malignant neoplasm of breast; L03.314 Cellulitis of groin; Z13.9 Encounter for screening, unspecified

== ENCOUNTER → 2025-04-12 11:19 | Outpatient (BNVA) | payer OTHER, SELFPAY | PROVIDERS: PCP Internal Medicine; Visit Provider Internal Medicine | DX: E11.65 Type 2 diabetes mellitus with hyperglycemia (principal); I10 Essential (primary) hypertension; E78.00 Pure hypercholesterolemia, unspecified; I25.10 Atherosclerotic heart disease of native coronary artery without angina pectoris; J43.9 Emphysema, unspecified; E03.9 Hypothyroidism, unspecified; L03.314 Cellulitis of groin; K21.9 Gastro-esophageal reflux disease without esophagitis; E66.9 Obesity, unspecified; F41.1 Generalized anxiety disorder; Z72.0 Tobacco use; Z79.899 Other long term (current) drug therapy; Z79.82 Long term (current) use of aspirin; Z79.85 Long-term (current) use of injectable non-insulin antidiabetic drugs; Z12.31 Encounter for screening mammogram for malignant neoplasm of breast; Z13.9 Encounter for screening, unspecified | CPT/HCPCS: 83036; 99212 ==

== ENCOUNTER 2025-05-02 12:21 | Outpatient (AMB) | payer OTHER, SELFPAY ==
--- OUTSIDE RECORDS SUMMARY | 2023-12-16 08:30 | XMS_ITS ---
Author Organization [facility] Address [address] [place] [address] [place] [address] Care Team Providers Care Blasting Worker Name Role Phone Vicky Whitman Primary Care Provider Unavailabl Ephraim Bhagat Unavailable [phone] Encounters En[facility] [address] [facility]/16/[facility] Ephraim Fuentes Plan Of Treatment No Information Progress Notes * Pina MATHISDOB:10/1954 (70 yo F)Acc No.[id number]:12/16/2023 Progress Note Patient: Pina QUINONEZ Provider: Coleman Fuentes DPM :1955 A ge:68 Y S ex:Female Date:12/16/2023 Address:[address] [place] [address] [address], [id number] Pcp:Vicky Whitman Subjective: * Chief Complaints: * [...] 0 12/16/2023 Generated for Shahidi ng/Fajackelineg/eTransmitting on: 07/03/2024 04:12 PM EST
--- OUTSIDE RECORDS SUMMARY | 2024-05-06 07:00 | XMS_ITS ---
Author Organization [facility] Address [address] [place] [id number] Care Team Providers Care Field Service Tech Name Role Phone Vicky Whitman Primary Care Provider UnavailEphraim Tate Unavailable [phone] Encounters Encounter Location Date Provider Diagnosis [address] [address] 05/06/2024 Ephraim Fuentes Plan Of Treatment No Information Progress Notes * Pina MATHISDOB:10/1954 (70 yo F)Acc No.[id number]:05/06/2024 Progress Note Patient: Pina QUINONEZ Provider: Coleman Fuentes DPM :1955 A ge:69 Y S ex:Female Date:05/06/2024 Address:[address] [place] [address] [address] [facility] [address] [id number] Pcp:Vicky Whitman Subjective: * Chief Complaints: * * Medical History: Objective: * Vitals: Assessment: Plan: * Treatment: * Images: * The named appointment provid er may or may not be the originator of this progress note, and it is not deemed complete until electronically signed by the appointment provider. Sign off status: Pending * Provider: Coleman Fuentes DPM Date: 07/07/2023 Generated for Shahidi ng/Fajackelineg/eTransmitting on: 07/03/2024 04:11 PM EST
--- OUTSIDE RECORDS SUMMARY | 2024-08-16 08:30 | XMS_ITS ---
Author Organization [facility] Address [address] [place] [address] Care Team Providers Care Slot Key Person Name Role Phone Vicky Whitman Primary Care Provider UnavailEphraim Tate Unavailable [phone] Encounters Encounter Location Date Provider Diagnosis [address] [address] 08/16/2024 Ephraim Fuentes Plan Of Treatment No Information Progress Notes * Pina MATHISDOB:10/1954 (70 yo F)Acc No.[id number]:08/16/2024 Progress Note Patient: Pina QUINONEZ Provider: Coleman Fuentes DPM :1955 A ge:69 Y S ex:Female Date:08/16/2024 Address:[address] [place] [address] A[address] [facility] [place] [id number] Pcp:Vicky Whitman Subjective: * Chief Complaints: * * Medical History: Objective: * Vitals: Assessment: Plan: * Treatment: * Images: * The named appointment provid er may or may not be the originator of this progress note, and it is not deemed complete until electronically signed by the appointment provider. Sign off status: Pending * Provider: Coleman Fuentes DPM Date: 0 08/16/2024 Generated for Shahidi ng/Fajackelineg/eTransmitting on: 07/03/2024 04:12 PM EST
--- OUTSIDE RECORDS SUMMARY | 2024-11-07 09:45 | XMS_ITS ---
Author Organization [facility] Address [address] [place] [address] [place] [address] Care Team Providers Care Medical Assistant Ob Gyn Name Role Phone Vicky Whitman Primary Care Provider Unavailabl Ephraim Bhagat Unavailable [phone] REASON FOR VISIT Seen Sooner Encounters Encounter Location Date [facility] [address] 11/07/2024 Ephraim Fuentes Plan Of Treatment No Information Progress Notes * Pina MATHISDOB:10/1954 (70 yo F)Acc No.[id number]:11/07/2024 Progress Note Patient: Pina QUINONEZ Provider: Coleman Fuentes DPM :1955 A ge:69 Y S ex:Female Date:11/07/2024 Address:[address] [place] [address] [address] [id number] Pcp:Vicky Whitman Subjective: * Chief Complaints: * 1 . Seen Sooner. * Medical History: Objective: * Vitals: Assessment: Plan: * Treatment: * Images: * The named appointment provid er may or may not be the originator of this progress note, and it is not deemed complete until electronically signed by the appointment provider. Sign off status: Pending * Provider: Coleman Fuentes DPM Date: 0 11/07/2024 Generated for Sirisha pressley/Jasmeet/eTransmitting on: 07/03/2024 04:12 PM EST
[2025-05-02 12:43] VITALS: BP 126/54; PULSE 74; RESP 18; O2SAT 97; BMI 30.8
--- NOTE | 2025-05-02 12:43 | MHC.PC.OV ---
Vital Signs 05/02/25 12:43 Height 5 ft 1 in Weight 163 lb 2 oz BMI 30.8 BP 126/54 L Blood Pressure Location Lt brachial Position Sitting Respiration 18 Pulse 74 Pulse Source Pulse Oximeter Temp Source Temporal Artery Scan Pulse Oximetry (%) 97 Oxygen Delivery Method Room Air Intake Visit Reasons: Annual Exam Mutton Puncher Required: No Accompanied by: Self / Same As Patient Allergies LATEX Allergy (Intermediate, Verified 05/02/25 12:44) rash MOLD Allergy (Intermediate, Verified 05/02/25 12:44) rash NONORGANIC FOOD Allergy (Intermediate, Verified 05/02/25 12:44) diarrhea Yeast Allergy (Intermediate, Verified 05/02/25 12:44) Diarrhea empagliflozin (From Jardiance) Adverse Reaction (Intermediate, Verified 05/02/25 12:44) Vaginal candidiasis Medication List - Last Reconciled 05/02/25 by Vicky Whitman MD albuterol sulfate 90 mcg/actuation (Proventil HFA) 2 puffs inhalation Q6H PRN ammonium lactate 12% 1 appl topical BID aspirin (Adult Low Dose Aspirin) 81 mg PO DAILY atorvastatin 80 mg PO DAILY [BEDSIDE COMMODE As directed] betamethasone dipropionate 0.05% apply to hands twice daily Breo Ellipta 200-25 mcg/dose (fluticasone furoate-vilanterol) 1 ea PO DAILY 90 days NS cholecalciferol (vitamin D3) 25 mcg PO DAILY [Chux pads As directed] clonazepam 1 mg PO Q8H clotrimazole 1% 1 appl topical BID 4 weeks [commode As directed] [commode liners As directed] [diabetic shoes As directed] [Disposable liners/shield/pad As directed] estradiol 0.01%(0.1mg/gram) vaginally 3 times a week; pea sized amount to urethra 3 times a week 30 days ezetimibe (Zetia) 10 mg PO BEDTIME flash glucose scanning reader (FreeStyle Dany 2 Gore) As directed flash glucose sensor (FreeStyle Dany 2 Sensor kit) As directed fluticasone propionate 50 mcg/actuation 2 sprays intranasal DAILY gabapentin 100 mg PO BEDTIME [GRABBER TOOL As directed] hydrocortisone 2.5% (Proctosol HC) 1 appl OK BID-QID PRN incontinence pad, liner, disp 8 pads per day [id number] Contour Plus BC pad , Inco, Max, swo incontinence pad, liner, disp As directed [incontinent wipes As directed] lactulose 15 mL PO DAILY 90 days levothyroxine 100 mcg PO DAILY [LIFT RECLINER As directed] metformin 1,000 mg PO BID metoprolol succinate ER 25 mg PO DAILY miscellaneous medical supply As directed nitroglycerin 0.4 mg sublingual Q5M PRN 30 days nystatin (Nystop) 1 appl topical BID oxycodone 5 mg PO BID 30 days [Pad bladder ultra As directed 8 times day ] [REUSABLE UNDERPAD BED Size As directed] tafluprost (PF) 0.0015% (Zioptan (PF)) 1 drp ophthalmic (eye) QPM timolol maleate (PF) 0.5% 1 drp ophthalmic (eye) BID tirzepatide (Mounjaro) 2.5 mg (0.5 mL) subcut QWEEK [WIPES As directed] Tobacco use date assessed: 05/02/25 Fall risk assessment: No Falls in past year Last assessed Fall Risk: 05/02/25 Dental Screening Dental Screen Date: 05/02/25 Did you have a dental visit in the last 12 months?: No Did you have a dental problem in the last 6 months where you did not have access to dental care?: No Was dental information given to patient?: Patient has dentist HPI HPI Comments History of Present Illness Details History of Present Illness The patient is a 70-year-old female presenting for an annual physical exam. Her medical history is significant for hypertension, hypercholesterolemia, anemia, hypothyroidism, coronary artery disease, COPD, diabetes mellitus, and GERD. She has a history of a villous adenoma of the colon, with her last colonoscopy performed in September 2021. She also has an overactive bladder. She is a current smoker. The patient was last seen in March 2025. Her mammogram and bone density scan are due. Review of recent lab work from August 2024 showed a normal blood count, good electrolytes, and good renal function. At that time, her blood sugar was 112, and her last hemoglobin A1c from March was 6.1. Her last cholesterol test in March 2024 showed an LDL of 44. She is due for new blood work. An ultrasound in August did not show any mass. Health Maintenance The patient is due for new blood work. The plan includes advising diet and exercise. A prescription for MiraLAX will be sent. She was advised to follow up if any mass increases in size, as this is very important. Social History - Substance Use: The patient is a current smoker and has been strongly advised to stop. Results - Labs (August 2024): Normal blood count, normal electrolytes, and normal renal function were noted. - Labs: Blood sugar was 112 in August 2024. - Labs: Hemoglobin A1c was 6.1 in March. - Labs: Urine numbers are good. - Labs: LDL was 44 in March 2024. - Imaging (August): An ultrasound showed no evidence of a mass. - Procedures: Last colonoscopy was in September 2021. [facility] Medical History Dysuria Anxiety and depression Thrush, oral Allergic rhinitis Franky's disease Goiter diffuse Cataract Glaucoma Tobacco abuse Type 2 diabetes mellitus with hyperglycemia GERD (gastroesophageal reflux disease) Obesity (BMI 30-39.9) COPD (chronic obstructive pulmonary disease) Coronary artery disease Carpal tunnel syndrome Hypercholesterolemia Hypothyroid Hypertension Surgical History Hx of section History of tubal ligation Family History Father Myocardial infarct Maternal Grandmother Breast cancer Mother Pancreatic cancer Sister Bipolar 1 disorder Other Mental problem Social History (Updated 05/02/25 @ 13:02 by Vicky hWitman MD) Household Members: Family Housing: House Do you presently have visiting nurse or other home services: No Alcohol intake: former Patient Tobacco Use Status: Current someday Tobacco user Tobacco use type: Cigarette Cigarette Packs Per Day: 0.5 Cigarettes Per Day: 4 Years Smoked: 3 cigarettes a day e-Cigarette/Vaping Use: Currently Using Second Hand Smoke Exposure: Yes Advance Directives Date on File: 03/21/22 service: No Current occupational status: disabled Cognitive needs: No Hearing needs: No Vision needs: Yes Questionnaire Thrive Questionnaire Date Thrive assessed: 05/02/25 I am a: Patient What is your living situation today?: I have a steady place to live Within the past 12 months, did the food you bought not last and you didn't have the money to get more?: Sometimes True Within the past 12 months, did you worry whether your food would run out before you got money to buy more?: Sometimes True Do you have trouble paying for medicines?: No Do you have trouble getting transportation to medical appointments?: No Do you have trouble paying your heating and electricity bill?: No Do you have trouble taking care of your child, family member or friend?: No Do you have trouble with day-to-day activities such as bathing, preparing meals, shopping, managing finances, etc.?: Yes Are you currently unemployed and looking for a job?: I choose not to answer this question Are you interested in more education?: No Please select the resources that you would like help with: None Currently or been in a relationship where the following occur: No concerns reported THRIVE Score: 2 RYLAN-7 AMB Questionnaire RYLAN-7 Date RYLAN - 7 assessed: 08/19/24 Source: Developed by Drs. Ras Asif, Kim Jones, Dyllan Norris and colleagues, with an educational kosta from [employer]. Review of Systems Narrative Review of Systems - Genitourinary: Reports overactive bladder. Const Denies poor appetite and Denies weakness Eyes Denies no additional complaints ENT Reports Normal hearing present, Denies dizziness, Denies nasal congestion, Denies tinnitus and Denies sore throat Card Denies chest pain, Denies syncope, Denies rapid heart rate and Denies dyspnea Resp Denies cough and Denies dyspnea GI Denies change in stool character, Reports constipation, Denies diarrhea, Denies nausea and Denies vomiting Denies urinary frequency, Denies difficulty voiding and Denies dysuria Neuro Reports Normal hearing present, Denies confusion, Denies dizziness, Denies syncope and Denies weakness Psych Denies confusion Physical exam (Primary Care) Vital Signs: Last Vital Signs Pulse 74 05/02/25 12:43 Resp 18 05/02/25 12:43 BP 126/54 L 05/02/25 12:43 Pulse Ox 97 05/02/25 12:43 Oxygen Delivery Method Room Air 05/02/25 12:43 BMI result Body Mass Index 30.8 Tobacco/Smoking Status: Tobacco use Status Tobacco use date assessed 05/02/25 05/02/25 12:48 Patient Tobacco Use Status Current someday Tobacco 05/02/25 13:02 Tobacco use type Cigarette 05/02/25 13:02 e-Cigarette/Vaping Use Currently Using 05/02/25 13:02 Thrive Assessment: Date of Thrive Assessment Date Thrive assessed 05/02/25 05/02/25 12:48 Currently or been in a relationship where the following occur: No concerns reported Narrative Physical Exam General: Cooperative, healthy appearing, comfortable, no acute distress and well developed Orientation: Patient oriented x3 Limitations: No limitations Head: Normal to inspection Ears: Hearing grossly normal bilaterally Nose: Normal external nose present Face and sinus: Normal facial exam Eyes: Appearance normal, both eyes and all related structures Neck: Normal visual inspection and Yes full ROM Respiratory: Normal respiratory effort and able to speak in complete sentences. Clear to auscultation bilaterally Cardiovascular: Regular rate and rhythm. Normal S1 and S2 GI: Normal to inspection. Soft to palpation and nontender Skin: No rashes or lesions noted Neuro: Patient oriented x3 Extremities: Normal to inspection Const General: No confusion Orientation/consciousness: No confusion HENMT Head: Yes normocephalic Ears: external ears normal and TM's normal bilaterally Face and sinus: Yes normal facial exam Mouth: moist mucous membranes Throat: Yes tonsils normal Eyes Conjunctivae: conjunctivae normal Pupils: Equal, round and reactive pupils present and Pupil accommodation reflex normal Direct Ophthalmoscopy: normal light reflex Neck Neck: No lymphadenopathy Thyroid: Thyroid normal Chest Chest palpation & inspection: normal inspection of the chest Resp Effort & Inspection: normal respiratory effort and no audible wheezes Auscultation: clear to auscultation bilaterally, no crackles, no wheezes and lung sounds not diminished Cardio Rate: regular rate Rhythm: regular rhythm Peripheral pulses: radial pulses present and dorsalis pedis present GI Palpation (GI): no masses Auscultation: normal bowel sounds and normoactive bowel sounds Rectal Exam - Female: deferred Skin General skin exam: no rashes or lesions noted Rashes: no rashes Neuro General: No confusion Cranial nerves: Yes Equal, round and reactive pupils present and Yes Normal hearing present Cognition (Neuro): normal cognition Gait exam (Neuro): Normal gait present Motor exam (neuro): 5/5 motor strength present throughout Deep tendon reflexes (DTR's): Right brachioradialis reflex intensity grade: 2+, Left brachioradialis reflex intensity grade: 2+, Right patellar reflex intensity grade: 2+ and Left patellar reflex intensity grade: 2+ Extrem General: No edema Results AMB Urinalysis, Automated UA Leukoctes 1 Ivette/uL Last Edit by Yamilet Patterson MA on 05/02/25 13:32 UA Nitrite Negative Last Edit by Yamilet Patterson MA on 05/02/25 13:32 UA Urobilinogen 0.2 mg/dL Last Edit by Yamilet Pattreson MA on 05/02/25 13:32 UA Protein mg/dL Last Edit by Yamilet Patterson MA on 05/02/25 13:32 UA pH 1 Last Edit by Yamilet Patterson MA on 05/02/25 13:32 UA Blood 1 Jordan/uL Last Edit by Yamilet Patterson MA on 05/02/25 13:32 UA Specific [place] 1.015 Last Edit by Yamilet Patterson MA on 05/02/25 13:32 UA Ketone Negative Last Edit by Yamilet Patterson MA on 05/02/25 13:32 UA Bilirubin 0 mg/dL Last Edit by Yamilet Patterson MA on 05/02/25 13:32 UA Glucose 0 mg/dL Last Edit by Yamilet Patterson MA on 05/02/25 13:32 Results Reviewed Results Reviewed: Laboratory Last Values Urine pH (Auto) 1 05/02/25 13:21 Specific [place] (Auto) 1.015 05/02/25 13:21 Glucose (UA)(Auto) 0 mg/dL 05/02/25 13:21 Urine Ketones (Auto) Negative 05/02/25 13:21 Urine Blood (Auto) 1 Jordan/uL 05/02/25 13:21 Urine Nitrite (Auto) Negative 05/02/25 13:21 Urine Bilirubin (Auto) 0 mg/dL 05/02/25 13:21 Urine Urobilinogen (Auto) 0.2 mg/dL 05/02/25 13:21 Leukocyte Esterase (Auto) 1 Ivette/uL 05/02/25 13:21 Coding Level of Care Code Est Pt Prev Care >65y(43995) Diagnoses Annual physical exam Z00.00 Tobacco abuse Z72.0 Pulmonary emphysema, unspecified emphysema type J43.9 COPD type: emphysema Emphysema type: unspecified Type 2 diabetes mellitus with hyperglycemia, without long-term current use of insulin E11.65 Diabetes mellitus vermin exterminator insulin use: without penitentiary use Essential hypertension I10 Hypertension type: essential hypertension Hypercholesterolemia E78.00 Coronary artery disease involving [place] coronary artery of [place] heart without angina pectoris I25.10 Associated angina: without angina Coronary Disease-Associated Artery/Lesion type: [place] artery [place] vs. transplanted heart: [place] heart Acquired hypothyroidism E03.9 Hypothyroidism type: acquired Obesity (BMI 30-39.9) E66.9 Gastroesophageal reflux disease without esophagitis K21.9 Esophagitis presence: without esophagitis OAB (overactive bladder) N32.81 Generalized anxiety disorder F41.1 Dysuria R30.0 Assessment & Plan Assessment & Plan (1) Annual physical exam: Code(s): Z00.00 - Encounter for general adult medical examination without abnormal findings Category: Medical Plan: Patient is advised to eat healthy, keep well hydrated, keep active and have adequate sleep. (2) Tobacco abuse: Comment: SHE CONTINUES TO SMOKE ABOUT 4-5 CIGARETTES A DAY. COUNSELED THAT SHE SHOULD STOP SMOKING COMPLETELY . . HER COUGH AND CONGESTED FEELING IN THE UPPER AIRWAYS IS MOSTLY SECONDARY TO SMOKING. SHE IS TRYING HER BEST TO CUT DOWN THE NUMBER OF CIGARETTES. Code(s): Z72.0 - Tobacco use Category: Medical Plan: Patient is strongly advised to stop smoking Ed input (3) COPD (chronic obstructive pulmonary disease): Comment: Chronic, mild to moderate COPD, and she also has moderate degree of restrictive disorder. Overall it is staying stable. Code(s): J44.9 - Chronic obstructive pulmonary disease, unspecified Category: Medical Qualifiers: COPD type: emphysema Emphysema type: unspecified Qualified Code(s): J43.9 - Emphysema, unspecified Plan: Patient is strongly advised to stop smoking! On albuterol inhaler follows up with Pulmonary and on Breo (4) Type 2 diabetes mellitus with hyperglycemia: Comment: Dr. Mujica and Dr. Zaldivar Code(s): E11.65 - Type 2 diabetes mellitus with hyperglycemia Category: Medical Qualifiers: Diabetes mellitus vermin exterminator insulin use: without vermin exterminator use Qualified Code(s): E11.65 - Type 2 diabetes mellitus with hyperglycemia Plan: Decrease the amount of carbohydrate intake, pasta, bread, rice and potatoes are all sugar and that is aside from all the sweet stuff, remember that fruits are good but they are Sweet also. Hemoglobin A1c goal of less than 7.0 on Mounjaro metformin a 1000 mg twice a day (5) Hypertension: Code(s): I10 - Essential (primary) hypertension Category: Medical Qualifiers: Hypertension type: essential hypertension Qualified Code(s): I10 - Essential (primary) hypertension Plan: Continue with blood pressure medication. Decrease salt intake and exercise on metoprolol 25 mg once a day (6) Hypercholesterolemia: Code(s): E78.00 - Pure hypercholesterolemia, unspecified Category: Medical Plan: Avoid fried foods, chicken skin, eggs, butter margarine, pastries and meat. Be it pork or beef they have a lot of cholesterol LDL goal of less than 70 and triglyceride of less than 150 patient is on Zetia and atorvastatin 80 mg once a day (7) Coronary artery disease: Comment: Echo April 2019 normal LV Pseudonormal filling, pericardial effusion July 2019 moderate pericardial effusion PCI done [facility] June 2015 Code(s): I25.10 - Atherosclerotic heart disease of [place] coronary artery without angina pectoris Category: Medical Qualifiers: Associated angina: without angina Coronary Disease-Associated Artery/Lesion type: [place] artery [place] vs. transplanted heart: [place] heart Qualified Code(s): I25.10 - Atherosclerotic heart disease of [place] coronary artery without angina pectoris Plan: Control the cholesterol, weight, blood pressure, diabetes on aspirin 81 mg once a day (8) Hypothyroid: Code(s): E03.9 - Hypothyroidism, unspecified Category: Medical Qualifiers: Hypothyroidism type: acquired Qualified Code(s): E03.9 - Hypothyroidism, unspecified Plan: Continue with thyroid medication (9) Obesity (BMI 30-39.9): Code(s): E66.9 - Obesity, unspecified Category: Medical Plan: Diet and exercise (10) GERD (gastroesophageal reflux disease): Code(s): K21.9 - Gastro-esophageal reflux disease without esophagitis Category: Medical Qualifiers: Esophagitis presence: without esophagitis Qualified Code(s): K21.9 - Gastro-esophageal reflux disease without esophagitis Plan: Avoid the foods that causes that usually spicy foods, tomato products, juices, coffee, soda and foods that your sensitive to. After eating do not lie down, allow 3-4 hours before in lie down. And keep the head of bed above 30 degrees to avoid the acid from going up., patient is strongly advised to stop smoking (11) OAB (overactive bladder): Code(s): N32.81 - Overactive bladder Category: Medical Plan: Continue to follow-up with urology has been placed on Myrbetriq (12) Generalized anxiety disorder: Comment: Pina does have chronic anxiety syndrome, stable at this time Code(s): F41.1 - Generalized anxiety disorder Category: Medical Plan: Continue with present medication (13) Dysuria: Code(s): R30.0 - Dysuria Category: Medical Plan Plan Patient was informed and verbally consented to the use of an ambient scribe for clinic note documentation during this visit. 1. Hypertension Continue current blood pressure medication. 2. Hypercholesterolemia The plan is to maintain an LDL goal of less than 70 mg/dL. The patient is on Zetia and atorvastatin 80 mg once daily. 3. Coronary Artery Disease Continue aspirin 81 mg once a day for secondary prevention. 4. Chronic Obstructive Pulmonary Disease The patient is on an albuterol inhaler and Breo and follows up with pulmonology. The patient has been strongly advised to stop smoking. 5. Diabetes Mellitus The goal is to maintain a hemoglobin A1c of less than 7.0. Medications include Mounjaro 25 mg, 1 cc, and metformin twice a day. 6. Gastroesophageal Reflux Disease Continue current management for reflux. 7. Overactive Bladder The patient is on Myrbetriq and will continue to follow up with urology. 8. Hypothyroidism Continue current thyroid medication. 9. Tobacco Use Disorder Patient was strongly advised to stop smoking. Discussion Notes I strongly advised the patient to stop smoking. I discussed the importance of diet and exercise. I advised her that although her ultrasound from August did not show a mass, it is very important to follow up if a mass increases in size. I let her know that I will send in a prescription for MiraLAX. Patient Instructions - It is very important that you stop smoking. - Continue to take all your current medications as prescribed, including those for your blood pressure, cholesterol, COPD, diabetes, thyroid, and overactive bladder. - Continue to use your aspirin 81 mg once a day. - Follow a healthy diet and exercise regularly. - You will need to get new blood work done. - Continue to follow up with your urology and pulmonology specialists. - Your mammogram and bone density scan are due. Please schedule these appointments. - I will be sending a prescription for MiraLAX for you. - It is very important that you follow up if you notice any mass increasing in size. Orders: Orders AMB Urinalysis Automated Today R30.0 - Dysuria, Z13.9 - Encounter for screening, unspecified Medications: New sulfamethoxazole-trimethoprim 800-160 mg (Bactrim DS) 1 tab PO BID 10 tabs 0RF
--- OUTSIDE RECORDS SUMMARY | 2025-05-02 16:11 | XMS_ITS | Data Portability ---
Author Organization [facility] Address [address] [place] [address] Care Team Providers Care Powertrain Design Engineer Name Role Phone [facility] Referring Provider [phone] Assessment Encounter Date Assessment Date Assessment LastModified by Organization Details LastModified Time 10/22/2022 10/22/2022 I have reviewed and agree with the assessment and plan as documented by the tab machine operator. I provided real-time medical direction for [...] is intermediate for macrobid. Will send bactrim. [email or web address] Not available 10/25/2022 15:03:49 Plan of Treatment Reminders Order Date Submit Date Provider Last Modified By Organization Details Last Modified Time Details Appointments None recorded. Lab culture, urine 2022 023 [facility] (Centralized Electronic Ordering - All Locations), Patient Can Go To The Location Of Their Choice, [address] 11:11:00 urinalysis , dipstick 2022 023 [facility], [address] [place] [address], [phone] 15:49:26 Referral None recorded. Procedures None recorded. Surgeries None recorded. Imaging None recorded. Medication Orders Macrobid 100 mg capsule 2022 023 [id number], [address], [place], [phone], 10:59:20 Bactrim DS 800 mg-160 mg tablet 2022 023 [facility] #[id number], [address], [place], [phone], 15:04:26 Patient TargetsNo targets recorded. Patient InstructionsNo instructions recorded. Reason for Referral None Reported. Results Created Date Observation Date Name Description Value Unit Range Abnormal Flag Note LastModifiedBy Organization Detail LastModifiedTime 10/23/1910/22/2022 URINE CULTU RE specimen description URINE Not Available [facility] (Centralized Electronic Ordering - All Locations) Patient Can Go To The Location Of Their Choice, [id number] 10/25/2022 11:11:00 10/23/1910/22/2022 URINE CULTU RE special requests NONE Not Available [facility] (Centralized Electronic Ordering - All Locations) Patient Can Go To The Location Of Their Choice, [address] 10/25/2022 11:11:00 10/23/1910/25/2022 URINE CULTU RE culture abnormal >100, 000 COL/M L KLEBS IELLA PNEUM ONIAE This isola te was ident ified using Maldi -TOF syste m These AST resul ts were perfo rmed on the Micro scan ID and AST syste m Not Available [facility] (Centralized Electronic Ordering - All Locations) Patient Can Go To The Location Of Their Choice, [address] 10/25/2022 11:11:00 10/23/1910/25/2022 URINE CULTU RE report status FINAL 2022 Not Available [facility] (Centralized Electronic Ordering - All Locations) Patient Can Go To The Location Of Their Choice, [address] 10/25/2022 11:11:00 10/23/1910/25/2022 URINE CULTU RE organism [...] Go To The Location Of Their Choice, [id number] 10/25/2022 11:11:00 10/23/19 23 10/25/2022 URINE CULTU RE tetracycline TETRAC YCLINE SUSCEP TIBLE susceptib le Not Available [facility] (Centralized Electronic Ordering - All Locations) Patient Can Go To The Location Of Their Choice, [address] 10/25/2022 11:11:00 Result Notes None recorded. Medical [...] Vitals Date Recorded Body temperature Oxygen saturation Heart rate Body weight Respiratory rate Systolic And Diastolic Provider Name and Address Organization Details Last Updated DateTime 3 97.7 [degF] 98 % 70 /min 75265.0 88 g 18 /min 146/76 mm[Hg] Not Available [facility] - production 3 [...] Diagnosis SNOMED-CT Code Diagnosis ICD10 Code Diagnosis IMO Codes Diagnosis Note 74498 Chrystal Espinosa MD Main - [facility] [address] [place] [phone] 10/22/2022 10:52:47 10/23/2022 10:59:30 Dysuria 78016715 R30.0 Acute cystitis 40972963 N30.00 Health Concerns Section Related Observation LastModified by Organization Detai ls LastModified Time None Recorded Concern Status LastModified by Organization Details LastModified Time None Recorded Advance Directives Directive None Recorded Payers Insurance Date Sequence Insurance Name Policy Number Policy Vasquez Covered Member ID Vasquez Member ID Guarantor Name 12/15/2023 1 [facility] - DOS ON OR AFTER 2022 - DUAL ELIGIBLE - CUSTODIAL OPTIONS AND ONE CARE (MEDICARE REPLACEMENT/ADV ANTAGE - HMO) Pina langley [id number] Pina ordoñez Notes Date Note Type Note [...] 10/22. Josh Buckley MD [address] [facility],[address], [place], [address], [place] [employer] 10/25/2022 15:04:26 OBGyn Episode No OBEpisode recorded.
--- OUTSIDE RECORDS SUMMARY | 2025-05-02 16:11 | XMS_ITS | Patient Health Record ---
Author Organization [facility] Address [address] [place] [address] Care Team Providers Care Transformation Lead Name Role Phone Vicky Whitman Primary Care Provider Ephraim Mercado Unavailable [phone] Allergies Allergen (clinical drug ingredient) Drug/Non Drug [...] Start Date End Date Status Nitroglycerin Active Proventil HFA Not-Ta wendy Levothyroxine Sodium 100 MCG 1 tablet in the morning on an empty stomach Orally Once a day Active Breo Ellipta 200-25 MCG/INH 1 puff Inhalation Once a day Active Hydrocortisone Activ e Ammonium Lactate 12 % 1 application to affected area Externally to feet Twice a day; Duration: 30 days Active Lisinopril Active Gabapentin Not-Takin g Lactulose 10 GM 1 packet Orally Once a day; Duration: 30 day(s) Active Extra Depth Orthopedic Shoes (1 Pair) with Customized Heat Molded Multidensity Innersoles (3 Pair) as directed Dx: NIDDM/Polyneuropathy (E11.42), Hammertoe Foot Deformity (M20.41,M20.42), Preulcerative Skin Lesion(s) (L85.1 Active Estradiol Active Timolol Maleate 0.5 % [...] Duration: 30 day(s) Active Vitamin D3 Active Aspirin 81 Active Metoprolol Succinate 25 MG 1 capsule Orally Once a day; Duration: 30 day(s) Active Myrbetriq 50 MG 1 tablet Orally Once a day Active metFORMIN HCl Active oxyBUTYnin Not-Takin g Atorvastatin Calcium 80 MG 1 tablet Orally Once a day; Duration: 30 day(s) Active Immunizations Vaccine Route Administration Date Status Comme nts Influenza Unknown 02/19/2020 Administered Influenza Unknown 02/16/2024 Administered Influenza Unknown 02/16/2025 Administered COVID-19 Pfizer BioNTech Vaccine Unknown 10/25/2020 [...] Ready to quit Additional Findings: Tobacco user Yayoa l cigarette smoker (less than 1 cig/day) AUDIT-C (Standard) Question Answer Notes Did you have a drink containing alcohol in the p ast year? No Points 0 Interpretation Negative Problems Problem Type SNOMED Code ICD Code Onset Dates Problem Status W/U Status Risk Notes Problem Acquired hammer toe of right foot (241856852672838 5) Other hammer toe(s) (acquired), right foot (M20.41) Active confirmed Response to treatment, Improvement Problem Acquired hammer toe of left foot (238509204644750 3) Other hammer toe(s) (acquired), left foot (M20.42) Active confirmed Response to treatment, Improvement Problem Polyneuropathy due to type 2 diabetes mellitus (711637387) Type 2 diabetes mellitus with diabetic polyneuropathy (E11.42) Active confirmed Vital Signs Blood pressure diastolic 70 mm Hg 03/10/2025 Height 5ft in 03/10/2025 Blood pressure systolic 128 mm Hg 03/10/2025 Weight 162 lbs 03/10/2025 BMI 31.64 kg/m2 03/10/2025 Procedures Procedure Date Ordered Date Performed Result Body Sit e 05622-HSVZXHM NAIL, 6 OR MORE 08/26/2024 N/A 18905-USXZ SKIN LESIONS, OVER 4 08/26/2024 N/A 65983-VWXOCBW NAIL, 6 OR MORE 12/06/2024 N/A 84176-SJHR SKIN LESIONS, OVER 4 12/06/2024 N/A 97364-QPODNAE NAIL, 6 OR MORE 03/10/2025 N/A 23119-YWTS SKIN LESIONS, OVER 4 03/10/2025 N/A Encounters Encounter Location Date Provider Diagnosis [address] [address] 08/26/2024 Ephraim Fuentes Type 2 diabetes mellitus with diabetic polyneuropathy E11.42 ; Tinea unguium B35.1 ; Other hammer toe(s) (acquired), right foot M20.41 and Other hammer toe(s) (acquired), left foot M20.[address] [address] 12/06/2024 Ephraim Fuentes Type 2 diabetes mellitus with diabetic polyneuropathy E11.42 and Tinea unguium B35.[address] [address] 03/10/2025 Ephraim Fuentes Type 2 diabetes mellitus with diabetic polyneuropathy E11.42 ; Tinea unguium B35.1 ; Other hammer toe(s) (acquired), right foot M20.41 and Other hammer toe(s) (acquired), left foot M20.[address] [address] 05/04/2024 Ephraim Fuentes [address] [address] 08/16/2024 Ephraim Fuentes Assessments Encounter Date Diagnosis (ICD Code) Assessment Notes Treatment Notes Treatment Clinical Notes Section Notes 08/26/2024 Type 2 diabetes mellitus with diabetic polyneuropathy (ICD-10 - E11.42) 08/26/2024 Tinea unguium (ICD-10 - B35.1) 12/06/2024 Type 2 diabetes mellitus with diabetic polyneuropathy (ICD-10 - E11.42) 12/06/2024 Tinea unguium (ICD-10 - B35.1) 03/10/2025 Type 2 diabetes mellitus with diabetic polyneuropathy (ICD-10 - E11.42) 03/10/2025 Tinea unguium (ICD-10 - B35.1) 08/26/2024 Other hammer toe(s) (acquired), right foot (ICD-10 - M20.41) Patient Educated with: DIABETIC FOOT CARE INSTRUCTIONS. pdf (DIABETIC FOOT CARE INSTRUCTIONS. pdf) 08/26/2024 Other hammer toe(s) (acquired), left foot (ICD-10 - M20.42) 03/10/2025 Other hammer toe(s) (acquired), right foot (ICD-10 - M20.41) Response to treatment, Improvement 03/10/2025 Other hammer toe(s) (acquired), left foot (ICD-10 - M20.42) Response to treatment, Improvement Plan Of Treatment Pending Test Test Name Order Date 37478-BNRFMJT NAIL, 6 OR MORE 09/11/2020 33804-GXWLDQJ NAIL, 6 OR MORE 12/25/2020 51811-OKQATZB NAIL, 6 OR MORE 07/31/2021 48488-XBHLHFT NAIL, 6 OR MORE 11/20/2021 81152-SQHYQBU NAIL, 6 OR MORE 01/31/2022 15783-ZHRLGCJ NAIL, 6 OR MORE 04/25/2022 33588-LDPPVNE NAIL, 6 OR MORE 08/29/2022 15580-OMNVNEN NAIL, 6 OR MORE 11/14/2022 06192-VSXHXEJ NAIL, 6 OR MORE 03/24/2023 91411-HRWIOAD NAIL, 6 OR MORE 11/23/2023 68378-GDWJTWV NAIL, 6 OR MORE 02/02/2024 54687-ZLSOEQE NAIL, 6 OR MORE 08/26/2024 48423-CWNWHSY NAIL, 6 OR MORE 12/06/2024 71444-BCFEBXX NAIL, 6 OR MORE 03/10/2025 11702-UOTZ SKIN LESIONS, OVER 4 03/10/20 25 08923-ARLF SKIN LESIONS, OVER 4 12/07/19 25 93729-QDKP SKIN LESIONS, OVER 4 08/27/19 25 74680-QWVG SKIN LESIONS, OVER 4 02/02/20 24 52320-GPDI SKIN LESIONS, OVER 4 11/23/19 24 26810-PZZL SKIN LESIONS, OVER 4 03/24/20 23 29366-BDTA SKIN LESIONS, OVER 4 11/15/19 23 19174-NYZJ SKIN LESIONS, OVER 4 08/30/19 23 44797-DQTN SKIN LESIONS, OVER 4 04/25/20 22 23096-QRHE SKIN LESIONS, OVER 4 02/01/20 38777-FMBB SKIN LESIONS, OVER 4 11/21/19 87040-VJUL SKIN LESIONS, OVER 4 08/01/19 22 74631-RNZZ SKIN LESIONS, 2 TO 4 12/26/19 21 Insurance Providers Payer Name Payer Address Payer Phone Subscriber Number Group Number Insured Name Patient Relationship to Insured Coverage Start Date Coverage End Date [facility] S[employer] Claims [address] [place] [id number] Pina Gaytan Self - patient is the insured Medical (General) History Medical History History ICD Code Angina Anxiety Arthritis Back,Hip,and Knee pain CAD (Cholesterol) Cataracts Depression Diabetic border line Glaucoma Heart disease High blood pressure Chicken pox Measles Mumps thyroid UTI's Diabetes type ll Surgical History Surgery Date(Month/Year) 1988,1993 Stent/implant R eye 06/2015 cataract surgery Hospitalization History Reason Date(Month/Year[place] [facility] [place] [facility]-1 we ek given steroids 03/19/2022
--- OUTSIDE RECORDS SUMMARY | 2025-05-02 16:12 | XMS_ITS | Patient Health Record ---
Author Organization [facility] Address [address] [place] [address] Care Team Providers Care Supervisor Joiners Name Role Phone Po Vicky BROCK Primary Care Provider Ras Rios [phone] Allergies Allergen (clinical drug ingredient) Drug/Non Drug Allergy documented on EMR Reaction Allergy Type Onset Date Status food allergies (uncoded) Unknown Allergy Active Latex Latex gloves (uncoded) Unknown Allergy Active Reason For Referral No Information Medications Medication SIG (Take, Route, Frequency, Duration) Notes Start Date End Date Status Metoprolol Succinate 25 MG Capsule ER 24 Hour Sprinkle 1 capsule Orally Once a day; Duration: 30 day(s) Active Betamethasone Dipropionate 0.05 % Ointment 1 application Externally Once a day Active Atorvastatin Calcium 80 MG Tablet 1 tablet Orally Once a day; Duration: 30 day(s) Active oxyBUTYnin Chloride ER 10 MG Tablet Extended Release 24 Hour 1 tablet Orally Once a day; Duration: 30 day(s) Active Breo Ellipta 200-25 MCG/INH Aerosol Powder Breath Activated 1 puff Inhalation Once a day Active metFORMIN HCl ER 500 MG Tablet Extended Release 24 Hour 1 tablet with evening meal Orally twice a day Active Proventil HFA 108 (90 Base) MCG/ACT Aerosol Solution 1 puff as needed Inhalation every 4 hrs Active Timolol Maleate 0.5 % Solution 1 drop into affected eye Ophthalmic Once a day Active Ezetimibe 10 MG Tablet 1 tablet Orally O nce a day; Duration: 30 day(s) Active Estradiol Active Vitamin D3 25 MCG (1000 UT) Capsule 1 capsule Orally Once a day; Duration: 30 day(s) Active Lisinopril 30 MG Tablet 1 tablet Orally Once a day Active Aspir-Low 81 MG Tablet Delayed Release 1 tablet Orally Once a day; Duration: 30 day(s) Active Lactulose 10 GM Packet 1 packet Orally O nce a day; Duration: 30 day(s) Active Zioptan 0.0015 % Solution as directed Op hthalmic once a day Active Nitroglycerin 0.4 MG Tablet Sublingual as directed Sublingual prn Active MiraLax (colon prep) 17 GM/SCOOP Powder 1 238Gm bottle mixed with Gatorade or Crystal Light Orally begin at 5:00 p.m. the day before the procedure; Duration: 1 day 08/07/2021 Active Dulcolax (colon prep) 5 MG Tablet Delayed Release take at 3:00 p.m and 7:00p.m. Orally two tablets twice a day for one day; Duration: 1 day 08/07/2021 Active Levothyroxine Sodium 100 MCG Tablet 1 tablet in the morning on an empty stomach Orally Once a day; Duration: 30 day(s) Active Immunizations Vaccine Route Administration Date Status Comme nts Influenza Unknown 03/02/2019 Administered Influenza Unknown 03/06/2021 Administered Social History Tobacco Use: Social History Observation Description Date Details (start date - stop date) Current Smoker NA - NA Social History Drugs/Alcohol: Social Info Question Answer Notes Alcohol Screen Did you have a drink containing alcohol in the past year? Yes How often did you have a drink containing alcohol in the past year? 2 to 3 times a week (3 points) How many drinks did you have on a typical day when you were drinking in the past year? 1 or 2 drinks (0 point) How often did you have 6 or more drinks on one occasion in the past year? Never (0 point) Points 3 Interpretation Positive Tobacco Use: Social Info Question Answer Notes Tobacco Use/Smoking Patient is a current smoker How often do you smoke cigarettes? every day How many cigarettes a day do you smoke? 5 or less How soon after you wake up do you smoke your first cigarette? after 60 minutes Are you interested in quitting? Thinking about quitting Additional Details Category Social Info Options Details Miscellaneous: Marital status: Occupation: Unemployed. On d isability. Section Notes: Smoker 4 cigs QD.no sig alco hol Smoker 4 cigs QD.no sig alco hol Problems Problem Type SNOMED Code ICD Code Onset Dates Problem Status W/U Status Risk Notes Problem Screening for malignant neoplasm of colon (620969711) Encounter for screening for malignant neoplasm of colon (Z12.11) Active confirmed Problem Preprocedural examination (963948213169004) Preprocedural examination (Z01.818) Active confirmed Problem Irregular bowel habits (193971529) Irregular bowel habits (R19.8) Active confirmed Problem Diverticulosis of colon (603434666) Diverticulosis of colon (K57.30) Active confirmed Problem History of infectious disease (881488285) History of Clostridioides difficile infection (Z86.19) Active confirmed Plan Of Treatment Future Test Test Name Order Date COLONOSCOPY 06/08/2019 COLONOSCOPY 08/07/2021 Insurance Providers Payer Name Payer Address Payer Phone Subscriber Number Group Number Insured Name Patient Relationship to Insured Coverage Start Date Coverage End Date [facility] [address] [place] [address] [id number] MARCELINA GEIGER Self - patient is the insured Medical (General) History Medical History History ICD Code Denies CVA,renal disease COPD [place]--s/p stent placement in 2015 Hypertension Glaucoma Neg [...]
== END 2025-05-02 13:28 | disposition home or self-care (01) ==
LOC: HO.HMCH 12:22
PROVIDERS: PCP Internal Medicine; Visit Provider Internal Medicine
DX: Z00.00 Encounter for general adult medical examination without abnormal findings (principal); J43.9 Emphysema, unspecified; E11.65 Type 2 diabetes mellitus with hyperglycemia; Z72.0 Tobacco use; I10 Essential (primary) hypertension; E78.00 Pure hypercholesterolemia, unspecified; I25.10 Atherosclerotic heart disease of native coronary artery without angina pectoris; E03.9 Hypothyroidism, unspecified; E66.9 Obesity, unspecified; K21.9 Gastro-esophageal reflux disease without esophagitis; N32.81 Overactive bladder; F41.1 Generalized anxiety disorder; R30.0 Dysuria

== ENCOUNTER → 2025-05-02 12:21 | Outpatient (BNVA) | payer OTHER, SELFPAY | PROVIDERS: PCP Internal Medicine; Visit Provider Internal Medicine | DX: Z00.00 Encounter for general adult medical examination without abnormal findings (principal); Z72.0 Tobacco use; J43.9 Emphysema, unspecified; I10 Essential (primary) hypertension; E78.00 Pure hypercholesterolemia, unspecified; I25.10 Atherosclerotic heart disease of native coronary artery without angina pectoris; E03.9 Hypothyroidism, unspecified; E66.9 Obesity, unspecified; K21.9 Gastro-esophageal reflux disease without esophagitis; N32.81 Overactive bladder; F41.1 Generalized anxiety disorder; R30.0 Dysuria | CPT/HCPCS: 81003; 99397 ==

== ENCOUNTER 2025-05-15 13:06 | Outpatient (REF) | payer OTHER, SELFPAY ==
--- OUTSIDE RECORDS SUMMARY | 2023-12-16 08:30 | XMS_ITS ---
Author Organization [facility] Address [address] [place] [address] [place] [address] Care Team Providers Care Manager Regional Name Role Phone Vicky Whitman Primary Care Provider Unavailabl Ephraim Bhagat Unavailable [phone] Encounters Encounter [facility] Date [facility] [address] [facility] Ephraim Fuentes Plan Of Treatment No Information Progress Notes * Pina MATHISDOB:10/1954 (70 yo F)Acc No.[id number]:12/16/2023 Progress Note Patient: Pina QUINONEZ Provider: Coleman Fuentes DPM :1955 A ge:68 Y S ex:Female Date:12/16/2023 Address:[address] [place] [address] [address], [id number] Pcp:Vicky Whitman Subjective: * Chief Complaints: * * Medical History: Objective: * Vitals: Assessment: Plan: * Treatment: * Images: * The named appointment provid er may or may not be the originator of this progress note, and it is not deemed complete until electronically signed by the appointment provider. Sign off status: Pending * Provider: Coleman Fuentes DPM Date: 0 12/16/2023 Generated for Shahidi ng/Fajackelineg/eTransmitting on: 03:07 PM EST
--- OUTSIDE RECORDS SUMMARY | 2024-05-06 07:00 | XMS_ITS ---
Author Organization [facility] Address [address] [place] [id number] Care Team Providers Care Position Classification Specialist Name Role Phone Vicky Whitman Primary Care Provider UnavailEphriam Tate Unavailable [phone] Encounters Encounter Location Date Provider Diagnosis [address] [address] 05/06/2024 Ephraim Fuentes Plan Of Treatment No Information Progress Notes * Pina MATHISDOB:10/1954 (70 yo F)Acc No.[id number]:05/06/2024 Progress Note Patient: Pina QUINONEZ Provider: Coleman Fuentes DPM :1955 A ge:69 Y S ex:Female Date:05/06/2024 Address:[address] [place] [address] [address] [facility] [address] [id number] Pcp:Vicky Whitman Subjective: * Chief Complaints: * [...] Date: 07/07/2023 Generated for Shahidi ng/Fajackelineg/eTransmitting on: 03:06 PM EST
--- OUTSIDE RECORDS SUMMARY | 2024-08-16 08:30 | XMS_ITS ---
Author Organization [facility] Address [address] [place] [address] Care Team Providers Care Bun Machine Operator Name Role Phone Vicky Whitman Primary Care Provider UnavailEphraim Tate Unavailable [phone] Encounters Encounter Location Date Provider Diagnosis [address] [address] 08/16/2024 Ephraim Fuentes Plan Of Treatment No Information Progress Notes * Pina MATHISDOB:10/1954 (70 yo F)Acc No.[id number]:08/16/2024 Progress Note Patient: Pian QUINONEZ Provider: Coleman Fuentes DPM :1955 A ge:69 Y S ex:Female Date:08/16/2024 Address:[address] [place] [address] [address] [facility] [address] [id number] Pcp:Vicky Whitman Subjective: * Chief Complaints: * [...] 0 08/16/2024 Generated for Shahidi ng/Fajackelineg/eTransmitting on: 03:06 PM EST
--- OUTSIDE RECORDS SUMMARY | 2024-11-07 09:45 | XMS_ITS ---
Author Organization [facility] Address [address] [place] [address] [place] [address] Care Team Providers Care Foxer Name Role Phone Vicky Whitman Primary Care Provider Unavailabl Ephraim Bhagat Unavailable [phone] REASON FOR VISIT Seen Sooner Encounters Encounter Location Date Provider Diagnosis [facility] [address] 11/07/2024 Ephraim Fuentes Plan Of Treatment No Information Progress Notes * Pina MATHISDOB:10/1954 (70 yo F)Acc No.[id number]:11/07/2024 Progress Note Patient: Pina QUINONEZ Provider: Coleman Fuentes DPM :1955 A ge:69 Y S ex:Female Date:11/07/2024 Address:[address] [place] [address] [address] [id number] Pcp:Vicky Whitman Subjective: * Chief Complaints: * [...] 0 11/07/2024 Generated for Sirisha pressley/Jasmeet/eTransmitting on: 03:07 PM EST
--- OUTSIDE RECORDS SUMMARY | 2025-05-15 15:06 | XMS_ITS | Patient Health Record ---
Author Organization [facility] Address [address] [place] [address] Care Team Providers Care World History Teacher Name Role Phone Vicky Whitman Primary Care Provider Ephraim Mercado Unavailable [phone] Allergies Allergen (clinical drug ingredient) Drug/Non Drug [...] Problem Acquired hammer toe of right foot (724888926212139 5) Other hammer toe(s) (acquired), right foot (M20.41) Active confirmed Response to treatment, Improvement Problem Acquired hammer toe of left foot (029745082597789 3) Other hammer toe(s) (acquired), left foot (M20.42) Active confirmed Response to treatment, Improvement Problem Polyneuropathy due to type 2 diabetes mellitus (705811900) Type 2 diabetes mellitus with diabetic polyneuropathy (E11.42) Active confirmed Vital Signs Blood pressure diastolic 70 mm Hg 03/10/2025 Height 5ft in 03/10/2025 Blood pressure systolic 128 mm Hg 03/10/2025 Weight 162 lbs 03/10/2025 BMI 31.64 kg/m2 03/10/2025 Procedures Procedure Date Ordered Date Performed Result Body Sit e 71697-IZQEBSN NAIL, 6 OR MORE 08/26/2024 N/A 85544-SHYW SKIN LESIONS, OVER 4 08/26/2024 N/A 70992-MRQCLVS NAIL, 6 OR MORE 12/06/2024 N/A 00703-VEMR SKIN LESIONS, OVER 4 12/06/2024 N/A 22340-BAJVPKR NAIL, 6 OR MORE 03/10/2025 N/A 34999-ZAPR SKIN LESIONS, OVER 4 03/10/2025 N/A Encounters Encounter Location Date Provider Diagnosis [address] [address] 08/26/2024 Ephraim Fuentes Type 2 diabetes mellitus with diabetic polyneuropathy E11.42 ; Tinea unguium B35.1 ; Other hammer toe(s) (acquired), right foot M20.41 and Other hammer toe(s) (acquired), left foot M20.[address] [address] 12/06/2024 Ephraim Fuentes Type 2 diabetes mellitus with diabetic polyneuropathy E11.42 and Tinea unguium B35.[address] [address] 03/10/2025 Ephraim Fuentes Type 2 diabetes mellitus with diabetic polyneuropathy E11.42 ; Tinea unguium B35.1 ; Other hammer toe(s) (acquired), right foot M20.41 and Other hammer toe(s) (acquired), left foot M20.[address] [address] 08/16/2024 Ephraim Fuentes Assessments Encounter Date Diagnosis [...] Treatment Pending Test Test Name Order Date 11697-TPFGTGC NAIL, 6 OR MORE 09/11/2020 53779-CBYTDZM NAIL, 6 OR MORE 12/25/2020 26658-XZOWFVJ NAIL, 6 OR MORE 07/31/2021 37172-IFDBTBJ NAIL, 6 OR MORE 11/20/2021 18470-CBOSNIQ NAIL, 6 OR MORE 01/31/2022 28901-AZUTOFP NAIL, 6 OR MORE 04/25/2022 44883-OYGGDHD NAIL, 6 OR MORE 08/29/2022 79588-QCVPABW NAIL, 6 OR MORE 11/14/2022 70371-CLFGMOY NAIL, 6 OR MORE 03/24/2023 89623-OZDGNOW NAIL, 6 OR MORE 11/23/2023 14396-GQVSDIK NAIL, 6 OR MORE 02/02/2024 86028-UERFMMX NAIL, 6 OR MORE 08/26/2024 00845-TBDFZMR NAIL, 6 OR MORE 12/06/2024 86722-JXTEZBG NAIL, 6 OR MORE 03/10/2025 28345-YYHT SKIN LESIONS, OVER 4 03/10/20 25 78303-RQGY SKIN LESIONS, OVER 4 12/07/19 25 04929-AUJE SKIN LESIONS, OVER 4 08/27/19 25 32725-QXSB SKIN LESIONS, OVER 4 02/02/20 24 46228-JKQS SKIN LESIONS, OVER 4 11/23/19 24 63119-IOKW SKIN LESIONS, OVER 4 03/24/20 23 81948-FRTK SKIN LESIONS, OVER 4 11/15/19 23 61167-MVCS SKIN LESIONS, OVER 4 08/30/19 23 44270-LEVM SKIN LESIONS, OVER 4 04/25/20 22 85796-CRTR SKIN LESIONS, OVER 4 02/01/20 22 91731-TEVW SKIN LESIONS, OVER 4 11/21/19 22 59132-XXOG SKIN LESIONS, OVER 4 08/01/19 22 19815-PGBM SKIN LESIONS, 2 TO 4 12/26/19 21 Insurance Providers Payer Name Payer Address Payer Phone Subscriber Number Group Number Insured Name Patient Relationship to Insured Coverage Start Date Coverage End Date [facility] SCO Claims [address] [place] [id number] Pina Gaytan Self - patient is the insured Medical (General) History Medical History History ICD Code Angina Anxiety Arthritis Back,Hip,and Knee pain CAD (Cholesterol) Cataracts Depression Diabetic border line Glaucoma Heart disease High blood pressure Chicken pox Measles Mumps thyroid UTI's Diabetes type ll Surgical History Surgery Date(Month/Year) 1988,1993 Stent/implant R eye 06/2015 cataract surgery Hospitalization History Reason Date(Month/Year[place] [facility] [place] from [place]-1 we ek given steroids 03/19/2022
--- OUTSIDE RECORDS SUMMARY | 2025-05-15 15:07 | XMS_ITS | Patient Health Record ---
Author Organization [facility] Address [address] [place] [address] Care Team Providers Care Industrial Hygiene Engineer Name Role Phone Po Vicky BROCK Primary Care Provider Ras Rios [phone] Allergies Allergen (clinical drug ingredient) Drug/Non Drug [...] Problem Screening for malignant neoplasm of colon (095850947) Encounter for screening for malignant neoplasm of colon (Z12.11) Active confirmed Problem Preprocedural examination (464407737134418) Preprocedural examination (Z01.818) Active confirmed Problem Irregular bowel habits (126037260) Irregular bowel habits (R19.8) Active confirmed Problem Diverticulosis of colon (335243124) Diverticulosis of colon (K57.30) Active confirmed Problem History of infectious disease (802933493) History of Clostridioides difficile infection (Z86.19) Active confirmed Plan Of Treatment Future Test Test Name Order Date COLONOSCOPY 06/08/2019 COLONOSCOPY 08/07/2021 Insurance Providers Payer Name Payer Address Payer Phone Subscriber Number Group Number Insured Name Patient Relationship to Insured Coverage Start Date Coverage End Date [facility] [address] [place] [address] [id number] MARCELINA GEIGER Self - patient is the insured Medical (General) History Medical History History ICD Code Denies CVA,renal disease COPD [place]--s/p stent placement in 2015 Hypertension Glaucoma Neg [...]
[2025-05-15 17:00] LABS: Appearance Urine Turbid; Glucose Urine UA Negative (Negative); PH 5.0 (5.0-9.0); Specific Gravity - Urine 1.015 (1.005-1.025); UMIC TRIGGER UA YES
== END 2025-05-15 13:07 ==
LOC: HO.HMGCLDS 13:06
PROVIDERS: PCP Internal Medicine; Visit Provider Nurse Practitioner Family
DX: R35.0 Frequency of micturition (principal); R39.15 Urgency of urination; R32 Unspecified urinary incontinence; N39.0 Urinary tract infection, site not specified
CPT/HCPCS: 81001; 87086